=== PATIENT | female | born 1960 | race Caucasian/White ===

== ENCOUNTER 2018-10-04 11:12 | Inpatient (IN) | payer BC, SELFPAY ==
[2018-10-04] VITALS (14 sets, daily range): BP systolic 121–173; BP diastolic 63–106; PULSE 103–127; RESP 18–26; TEMP 36.4–37.3; O2SAT 91–98; BMI 24.7; BMI 24.2
--- NOTE | 2018-10-04 11:14 | EKG12_ITS ---
Test Reason : SOB Blood Pressure : / mmHG Vent. Rate : 122 BPM Atrial Rate : 122 BPM P-R Int : 142 ms QRS Dur : 082 ms QT Int : 318 ms P-R-T Axes : 091 085 090 degrees QTc Int : 453 ms Sinus tachycardia Biatrial enlargement Nonspecific ST abnormality Abnormal ECG Confirmed by CHARIS MEYER ([id number]), editorial director GAL ESPANA ([id number]) on 10/08/2018 4:52:00 PM Referred By: LAURIE Confirmed By:CHARIS MEYER
[2018-10-04] MEDS: Ipratropium/Albuterol Sulfate 3 ML AMPUL.NEB INHALATION ×3 (11:22→22:38)
[2018-10-04] MEDS: Albuterol 2.5 MG/3 ML VIAL.NEB. INHALATION ×4 (11:22→12:58)
[2018-10-04 11:48] LABS: Absolute Lymphocyte Count 0.65 X10^3/ul (0.83-4.51); Absolute Neutrophil Count 7.9 X10^3/uL (2.0-7.7); Basophil# 0.01 X10^3/uL; Basophil% 0.1 % (0-1); Eosinophil# 0.02 X10^3/uL; Eosinophils% 0.2 % (0-5); Hematocrit 49.6 % (37-47); Hemoglobin 15.9 g/dl (12.0-15.0); Lymphocyte # 0.65 X10^3/ul (4.0); Lymphocyte % 7.1 % (19-41); Mean Corp Hgb Conc 32.1 g/gl (32-36); Mean Corpuscular Hgb 28.5 pg (27.0-32.0); Mean Corpuscular Volume 88.9 fL (81-99); Mean Platelet Vol. 10.6 fl (6.2-12.0); Monocyte% 6.5 % (0-10); Neutrophil % 85.9 % (47-70); Platelet Count 176 K/mm3 (150-450); RBC Distribution Width CV 13.6 % (11.6-14.6); RBC Distribution Width SD 44.6 fl (35.1-43.9); Red Blood Count 5.58 M/mm3 (4.2-5.4); White Blood Count 9.2 K/mm3 (4.4-11.0)
[2018-10-04] MEDS: MethylPREDNISolone 125 MG/2 ML Vial IV (11:48)
[2018-10-04 11:49] LABS: POSITIVE COUNT NO; POSITIVE DIFFERENTIAL NO; POSITIVE MORPHOLOGY NO
--- NOTE | 2018-10-04 11:51 | ED.VISSUMM ---
- ER Visit Summary Date of Service: 10/04/18 Chief Complaint: Shortness of breath History of Present Illness: The patient is a 57 F presents to the emergency department cough and shortness of breath. The patient symptoms began 4 days ago. She states she started with an upper respiratory illness. She has a nasal drainage and facial fullness. Over the past 2 days, she had worsening dyspnea, cough, productive sputum. She does have a history of COPD. She has not on home oxygen. She she went to urgent care. There, her pulse ox was in the mid 80s. She was sent here for further evaluation. She did have a chest x-ray which is normal. She does not think she had fever. She denies any chest pain. Physical Examination: Vital signs reviewed General: Well-nourished, well-developed Head: Normocephalic, atraumatic Eyes: Pupils equal and reactive, extraocular muscles intact Neck, supple, no lymphadenopathy Heart: Regular rate and rhythm Respiratory: No distress, diminished air movement with end expiratory wheeze Abdomen: Soft, nontender, nondistended, no peritoneal signs Back: Nontender Extremities: Nontender, no edema, no cords Skin: Normal color no rash Neuro: Alert and oriented, no focal or lateralizing deficits Test Results: [] Emergency Department Course and Treatment: The patient presents with cough, shortness of breath, and was hypoxic on arrival. She did have increased work of breathing and very diminished air movement. IV was established. Patient was given Solu-Medrol and IV fluids. She was started on nebulized breathing treatments. With 3 treatments, she did have some improvement in aeration but did have persistent bronchospasm and oxygen requirement. I did review her chest x-ray which was unremarkable. Her labs are unremarkable. EKG demonstrates sinus tachycardia without acute ischemic change. Patient was given 2 more nebulized breathing treatments. She was very adamant that she wanted to go home. We try to ambulate the patient, but by the end of her ambulation on room air she had saturations in the low 80s and high 70s. I did basically bag the patient to stay in the hospital and she was agreeable. She is started on azithromycin. She is discussed with the hospitalist will be admitted for her persistent bronchospasm and oxygen requirement. Treatment Plan: [] Disposition: Admission Impression: 1. COPD exacerbation with hypoxia This note was generated with Dragon dictation software. It may contain incorrect words, spelling, and punctuation that were not noted in review of the chart prior to signing ED Disposition - Plan for ED Patient: Referrals: Catie Tyler,Isabel Rae [Primary Care Provider] -
[2018-10-04 12:06] LABS: Anion Gap 6 (5-15); BUN 11 mg/dL (7-18); Calcium,Total 8.8 mg/dL (8.5-10.1); Chloride 100 mmol/L (98-107); Creatinine, Serum 0.65 mg/dL (0.55-1.02); EST Glomerular Filtration Rate 99 mL/min (>60); Est Glom Filt Rate - Afr Amer 120 mL/min (>60); Estimated Creatinine Clearance 90.62 ml/min; Glucose 136 mg/dL (74-106); Potassium 4.2 mmol/L (3.5-5.1); Sodium Level 134 mmol/L (136-145)
--- NOTE | 2018-10-04 13:42 | HP.PCM_ITS ---
Problem List (1) COPD exacerbation Status: Acute (2) Cigarette smoker Status: Chronic (3) Hypertension Status: Chronic History of Present Illness Date of Admission: 10/04/18 Chief Complaint: Shortness of breath for 3-4 days The patient is a 57 year old F with history of COPD and chronic smoker 1/2 pack to 2 packs of cigarettes since teenage was sent to ER from [facility] urgent care for progressive worsening of shortness of breath, cough and other URI symptoms. Patient started having sinus congestion, nasal drainage, sore throat and postnasal drip about 4 days ago. She also had cough which is worse than baseline COPD cough. Mild chest congestion bilaterally. Shortness of breath getting worse so that she feels dyspneic on laying flat along with wheezing. In ED, patient is tachycardic, tachypneic and hypoxic. Her pulse ox was mid 80s on room air. She is not on home oxygen Chest x-ray shows flattening of hemidiaphragms and hyperexpansion suggestive of COPD. Past Medical History Past Medical History (Chronic Problems): Chronic Problems Cigarette smoker (Chronic) Hypertension (Chronic) Allergies codeine Allergy (Verified 10/04/18 11:18) Rash ibuprofen Allergy (Verified 10/04/18 11:18) Rash Home Medications: Ambulatory Orders Medication Instructions Recorded Acetaminophen [Tylenol Extra 1,000 mg PO Q4H PRN PRN 10/04/18 Strength] Albuterol Sulfate [Ventolin Hfa] 1 - 2 puff PO PRN PRN 10/04/18 Fluticasone/Salmeterol [Advair 1 puff INHALATION DAILY 10/04/18 250-50 Diskus] Lisinopril [Zestril] 10 mg PO DAILY 10/04/18 Loratadine [Claritin] 10 mg PO DAILY 10/04/18 Tiotropium [place] [Spiriva 1 puff INHALATION DAILY 10/04/18 Respimat] Smoking Status: Current every day smoker - *Family History Paternal History Items: COPD Review of Systems Constitutional: Reports: Chills. Denies: Fever, Weight Change HEENT: Reports: Ear Pain, Nasal Congestion, Post Nasal Drip, Sinus Congestion, Sinus Drainage, Sore Throat. Denies: Head Aches Cardiovascular: Reports: Chest Tightness. Denies: Chest Pain, Palpitations Respiratory: Reports: Cough, Shortness of breath at rest, Shortness of breath upon exertion, Sputum production, Wheezing Gastrointestinal: Denies: Abdominal Pain, Nausea, Vomiting Genitourinary: Denies: Dysuria Musculoskeletal: Denies: Joint Pain, Joint Tenderness Skin: Denies: Rash, Wounds Neurological: Denies: Numbness, Tingling, Focal weakness Psychiatric: Denies: Anxiety, Depression, Homicidal Ideations, Suicidal Ideations Hematologic/ Lymphatic: Denies: Easy Bruising, Easy Bleeding VTE Information - Inpt Only VTE Present on Admission: No VTE Mechan Device Prophylaxis: None VTE Pharm Prophylaxis ordered?: Yes Patient Problems: Active and Suspected Problems COPD exacerbation (Acute) - Physical Exam General: Alert, Oriented x3, Cooperative HEENT: Atraumatic, PERRLA, EOMI, Normocephalic Oral: No Gingival or Mucosal Lesions/ Ulcerations Neck: Supple, No JVD, Negative Carotid Bruits Lungs: Diminished - Air entry severely diminished bilaterally, Rhonchi, Short of Breath, Tachypneic, Using Accessory Muscles, Wheezes, - - Hypoxic, pulse ox 96% on 4 L of oxygen Cardiovascular: Regular Rhythm, Normal S1, Normal S2, No murmurs, Tachycardic Abdomen: Bowel Sounds Present, Soft, Non Tender, Non-Distended Extremities: No edema, Capillary Refill Less than 3 Seconds Skin: No rashes, No breakdown Musculoskeletal: No Tenderness to Palpation of Joints or Extremities, Muscle Wasting Lymphatic: No Cervical, Supraclavicular, or Inguinal Adenopathy Neurological: Cranial nerves II-XII grossly intact, Deep Tendon Reflexes 2+/4 and Symmetrical, Neuro grossly intact, Motor Exam 5/5 strength throughout Psych/Mental Status: Normal Affect, Appropriate Vital Signs Temp Pulse Resp BP Pulse Ox 97.7 F L 127 H 22 H 173/93 H 93 10/04/18 12:33 10/04/18 13:30 10/04/18 13:30 10/04/18 13:30 10/04/18 13:30 Oxygen Flow Rate (L/min) 3 Oxygen Delivery Method Nasal Cannula Weight: 157 lb 13.616 oz Body Mass Index (BMI) 24.7 Microbiology Past 72 Hours 10/04/18 11:20 Influenza Types A,B Direct FA (CAROLYNE) - Final Mucosa - Nose Laboratory Tests Past 24 Hrs 10/04/18 10/04/18 11:35 11:35 WBC 9.2 RBC 5.58 H Hgb 15.9 H Hct 49.6 H MCV 88.9 MCH 28.5 MCHC 32.1 RDW 13.6 RDW Differential 44.6 H Plt Count 176 MPV 10.6 Immature Gran % (Auto) 0.200 Neut % (Auto) 85.9 H Lymph % (Auto) 7.1 L Rooks % (Auto) 6.5 Eos % (Auto) 0.2 Baso % (Auto) 0.1 Absolute Neuts (auto) 7.9 H Absolute Lymphs (auto) 0.65 L Total Counted Not Reportable Sodium 134 L Potassium 4.2 Chloride 100 Carbon Dioxide 28.0 Anion Gap 6 BUN 11 Creatinine 0.65 Estim Creat Clear Calc 90.62 Est GFR (MDRD) Af Amer 120 Est GFR (MDRD) Non-Af 99 BUN/Creatinine Ratio 17.0 Glucose 136 H Calcium 8.8 Troponin I < 0.015 Assessment/Plan All Active Problems COPD exacerbation (Acute) The patient is a 57 year old F with history of COPD and chronic smoker 1/2 pack to 2 packs of cigarettes since teenage was sent to ER from [facility] urgent care for progressive worsening of shortness of breath, cough and other URI symptoms. Patient started having sinus congestion, nasal drainage, sore throat and postnasal drip about 4 days ago. She also had cough which is worse than baseline COPD cough. Mild chest congestion bilaterally. Shortness of breath getting worse so that she feels dyspneic on laying flat along with w heezing. In ED, patient is tachycardic, tachypneic and hypoxic. Her pulse ox was mid 80s on room air. She is not on home oxygen Chest x-ray shows flattening of hemidiaphragms and hyperexpansion suggestive of COPD. EKG shows sinus tachycardia at 122 bpm with biatrial enlargement. 1. Acute hypoxic respiratory failure secondary to COPD exacerbation may be precipitated from viral bronchitis: Patient is being admitted on MedSurg floor. Oxygen therapy to keep pulse ox 90-92%. Started on bronchodilator, IV Solu- Medrol, chest physiotherapy, Mucinex and incentive spirometry. Tessalon Perles for symptomatic relief of cough. IV Zithromax. Chest x-ray does not show features of pneumonia. ABG ordered 2. Hypertension: Blood pressure is elevated. She is on lisinopril 10 mg daily. Increase to 20 mg daily and titrate as per the blood pressure. Hydralazine 10 mg IV every 4 hours as needed for systolic blood pressure more than 180 mmHg. 3. URI: On Claritin. Respiratory panel ordered 4. Chronic smoker with nicotine dependence: On nicotine patch. 5. DVT prophylaxis, moderate risk: On Lovenox 40 minutes subcu daily. Code Visit Inpatient E&M: 99560 Init Hosp L3
--- NOTE | 2018-10-04 15:10 | CASEMGMT ---
RN CM Assessment Introduced role of RN CM to patient and family at bedside. Patient is alert, oriented and able to participate in RN CM Assessment. Care providers, pharmacy, and demographics verified. Presentation: CC: Sinus Congestion since Monday, SOB. O2 sat 70's on arrival. Patient sent from F , Drove Self. States +smoker, h/o COPD, +Ill contact with some of her coworkers. PCP: Isabel Lr NP Specialists: None Preferred Pharmacy: [facility] Insurance: [place] Prescription Benefit: Yes LNOK: Boyfriend Vin Curtis Living Arrangements: Lives with Boyfriend in a Mobile Home, 3 steps to enter. Independent with ambulation and ADL's. Transportation: Patient drives, drove self- plans to drive on DC DME: Nebulizer, Preference In Network HHC: None in the past, preference In Network SNF: None in the past, Preference In Network DC PLAN: Home with possible Home O2. Goal: Home Issues: May need to establish a Social Media Analyst for h/o COPD and monitor Lung Function Testing, May need to establish PCP tp get referral for such. FRANCES Hua
[2018-10-04] MEDS: 0.9% Normal Saline 1,000 ML 100 ML IV (16:30)
[2018-10-04] MEDS: guaiFENesin 1,200 MG Tablet 1200 MG PO (18:08)
[2018-10-04] MEDS: Lisinopril 10 MG Tablet PO (18:41)
[2018-10-05] VITALS (14 sets, daily range): BP systolic 133–158; BP diastolic 77–93; PULSE 94–109; RESP 18–21; TEMP 36.4–36.9; O2SAT 73–96
[2018-10-05] MEDS: Ipratropium/Albuterol Sulfate 3 ML AMPUL.NEB INHALATION ×3 (03:05→15:43)
[2018-10-05] MEDS: 0.9% NaCl Peripheral Flush Adult/Peds IV ×2 (05:58→09:19)
[2018-10-05] MEDS: guaiFENesin 1,200 MG Tablet 1200 MG PO (09:19)
[2018-10-05] MEDS: Loratadine 10 MG Tablet PO (09:19)
[2018-10-05] MEDS: Lisinopril 10 MG Tablet PO (09:19)
--- NOTE | 2018-10-05 12:14 | NURSING ---
AT 1207 This nurse walked pt in ruiz. See oxygen qualification intervention. Pt was only 75% on 3L NC while walking. This nurse increased oxygen to 4L NC and spo2 was then 86%. sp02 87-88% on 6L. Pt spo2 at 90% on 8L. This nurse paged Dr. Valerio to inform.
--- NOTE | 2018-10-05 13:33 | NURSING ---
Oxygen home qualification done for the 2nd time today. Pt thought this nurse did not do it right the first time. This nurse brought in a new oxygen tank that said full on it and showed pt. Turned it on without oxygen tubing to 1L and let pt hear the noise of the oxygen. Turned it off and walked pt in the ruiz. spo2 down to 73% only walking a few feet. This nurse turned o2 tank on without hooking oxygen tubing to it. [place] the noise of the oxygen. Turned up to 3L and was still able to hear the noise and felt the oxygen coming out. Pt was able to as well. This nurse then hooked pt to oxygen tank and increased to 4L NC. only got up to 85-86% on 4L. Increased to 6L because there is no 5L on the oxygen tanks. pt was maintained 89-90% on 6L NC. pt is adamant about going home. this nurse asked her what will happen if she goes home and has to come back. well then I will come back then, no big deal, I just want to go home.
--- NOTE | 2018-10-05 15:32 | CASEMGMT ---
LION MALAVE updated that patient qualifies for home oxygen. List of providers for DME reviewed with patient and agreeable to [facility]. Script received from hospitalist and referral sent to [facility]. LION MALAVE arranged for portable oxygen be delivered to hospital prior to patient's discharge
--- NOTE | 2018-10-05 16:11 | DCINST_ITS ---
- Discharge Diagnoses Current Active Problems: Current Active and Chronic Problems COPD exacerbation (Acute) Cigarette smoker (Chronic) Hypertension (Chronic) You will use the following diet at home:: No restrictions Your food should be the consistency of: Regular Your liquids should be the consistency of: Regular/Thin Discharge Activity: Return to Normal Activity Weight Bearing Status: Full weight bearing Additional Instructions: NO SMOKING=USE NICODERM PATCH Allergies/Adverse Reactions: Allergies codeine Allergy (Verified 10/04/18 11:18) Rash ibuprofen Allergy (Verified 10/04/18 11:18) Rash Medications to take at Discharge Acetaminophen [Tylenol] 1,000 mg PO Q4H PRN PRN 10/04/18 Albuterol Sulfate [Ventolin Hfa] 1 - 2 puff PO PRN PRN 10/04/18 Fluticasone/Salmeterol [Advair 250-50 Diskus] 1 puff INHALATION DAILY 10/04/18 Lisinopril [Zestril] 10 mg PO DAILY 10/04/18 Tiotropium [place] [Spiriva Respimat] 1 puff INHALATION DAILY 10/04/18 Albuterol Aerosols [Ventolin Aerosols] 2.5 mg INHALATION Q6HWA.RT #120 vial.neb. 10/05/18 Azithromycin [Zithromax] 500 mg PO DAILY #1 tab 10/05/18 Nicotine [Nicoderm Cq] 21 mg TRANSDERM. DAILY patch 10/05/18 Prednisone 20 mg PO UD #15 tab 10/05/18 The following prescriptions were given: Albuterol Aerosols [Ventolin Aerosols] 2.5 mg INHALATION Q6HWA.RT #120 vial.neb. Azithromycin [Zithromax] 500 mg PO DAILY #1 tab Prednisone 20 mg PO UD #15 tab Primary Care Physician: Isabel West [Primary Care Provider] - Please follow up with your Primary Care Physician in: IN ONE WEEK Test Results: Test results from this visit will be discussed in further detail at your follow- up appointment, if applicable. Please Follow Up With: Scottie Enamorado MD When: Monday
--- NOTE | 2018-10-05 16:17 | NURSING ---
Care assumed at this time from Malinda Vasques RN.
[2018-10-05] MEDS: predniSONE 20 MG Tablet 40 MG PO (17:32)
--- NOTE | 2018-10-07 16:45 | DS.PCM_ITS ---
Discharge Date and Diagnosis Date of Admission: 10/04/18 Date of Discharge: 10/05/18 - Primary Discharge Diagnosis #1 acute exacerbation of COPD #2 acute hypoxia secondary to #1 #3 essential hypertension - Secondary Discharge Diagnosis Chronic Problems Cigarette smoker (Chronic) Hypertension (Chronic) Hospital Course and Treatment Operations: None Procedures: None Summary of Care Provided: The patient is a 57 year old F seen in the emergency room with a chief complaint of shortness of breath and nonproductive cough. Patient had a known history of COPD. Patient was noted to be hypoxic in the emergency room, she was given several aerosol treatments but had persistent wheezing, chest x-ray was obtained which was unremarkable. Patient wanted to be discharged home but due to her hypoxia, she finally relented and agreed to stay in the hospital. Patient was admitted to [place] [address], given aerosol treatments, IV steroids, and respiratory panel was obtained which was negative for pathogens. Attempts were made to wean the patient from oxygen, patient however needed oxygen on ambulation. However, patient refused to stay in the hospital and requested a discharge home with medication and oxygen. Patient was aware that she might have to come back to the hospital for further treatment if she worsened. Patient's pulse ox on ambulation with room air was 73%, ambulation with 4 L of oxygen was 90%, pulse ox at rest on room air was 91. Patient was prescribed home O2 and was felt to be capable of using it during ambulation. On 10/05/18, patient was seen and examined and felt to be in stable condition for discharge home: On examination she appeared in good health and spirits. Vital signs as documented. Skin warm and dry and without overt rashes. Neck without JVD. Lungs-expiratory wheezes are scattered over both lung. Heart exam notable for regular rhythm, normal sounds and absence of murmurs, rubs or gallops. Abdomen unremarkable and without evidence of organomegaly, masses, or abdominal aortic enlargement. Extremities nonedematous. Neuro: Cranial nerves II through XII are grossly intact, no focal motor deficits were noted, sensation to light touch and pinprick is intact. Psych: Patient is alert and oriented x3, she does not appear anxious or depressed - Physical Exam Vital Signs Temp Pulse Resp BP Pulse Ox 97.8 F 108 H 20 H 150/86 H 95 10/05/18 16:10 10/05/18 16:10 10/05/18 16:10 10/05/18 16:10 10/05/18 16:10 Oxygen Flow Rate (L/min) [ 6 AMBULATION with Oxygen] Oxygen Flow Rate (L/min) 2 Oxygen Delivery Method Nasal Cannula Weight: 70.171 kg Body Mass Index (BMI) 24.2 Intake and Output for Last 24 Hours 10/05/18 10/06/18 10/07/18 23:59 23:59 23:59 Intake Total 2847 / 2847 Balance 2847 / 2847 Microbiology Past 72 Hours 10/04/18 17:20 Respiratory Panel (PCR) - Final Mucosa - Nasopharyngeal Discharge Activity: Return to Normal Activity Weight Bearing Status: Full weight bearing Home Medications: Medications to take at Discharge Acetaminophen [Tylenol] 1,000 mg PO Q4H PRN PRN 10/04/18 Albuterol Sulfate [Ventolin Hfa] 1 - 2 puff PO PRN PRN 10/04/18 Fluticasone/Salmeterol [Advair 250-50 Diskus] 1 puff INHALATION DAILY 10/04/18 Lisinopril [Zestril] 10 mg PO DAILY 10/04/18 Tiotropium [place] [Spiriva Respimat] 1 puff INHALATION DAILY 10/04/18 Albuterol Aerosols [Ventolin Aerosols] 2.5 mg INHALATION Q6HWA.RT #120 vial.neb. 10/05/18 Azithromycin [Zithromax] 500 mg PO DAILY #1 tab 10/05/18 Nicotine [Nicoderm Cq] 21 mg TRANSDERM. DAILY patch 10/05/18 Prednisone 20 mg PO UD #15 tab 10/05/18 Following Prescrptions Were Given to Patient: Albuterol Aerosols [Ventolin Aerosols] 2.5 mg INHALATION Q6HWA.RT #120 vial.neb. Azithromycin [Zithromax] 500 mg PO DAILY #1 tab Prednisone 20 mg PO UD #15 tab Primary Care Physician: Isabel West [Primary Care Provider] - Please follow up with your Primary Care Physician in: IN ONE WEEK Please Follow Up With: Scottie Enamorado MD When: Monday Disposition: Home Minutes spent on discharge:: 32 Patient Condition:: Stable Medical Necessity - Tobacco Use Smoking Status: Current every day smoker Tobacco Use: Cigarettes Meaningful Use Info Meaningful Use Diagnoses (Choose all that apply): None applicable Code Visit Inpatient E&M: 07290 Disch Hosp
--- NOTE | 2018-10-08 16:11 | CASEMGMT ---
LION MALAVE Discharge Follow-up Phone Call: MADHURIKeely: Mazin Strata: 3 Call Date: 10/08/18 Discharge Date: 10/05/18 Time of Call: 1610 Duration: 3 Admitting Diagnosis: COPD Exacerbation LION MALAVE completed follow-up phone call after recent hospitalization. Patient states she is doing better, still wearing oxygen. Encouraged patient to buy a pulse oximeter. Patient has appt with PCP on 10/16 and pulmonology 10/31. Patient was able to fill prescriptions without any issues. Patient denies question regarding discharge instructions.
== END 2018-10-05 17:50 | disposition home or self-care (01) | DRG 189 ==
LOC: ED 11:53 → MS3 16:34
PROVIDERS: Admitting Provider Internal Medicine; Emergency Provider Emergency Medicine; Visit Provider Internal Medicine
DX: J96.01 Acute respiratory failure with hypoxia (principal); J44.1 Chronic obstructive pulmonary disease with (acute) exacerbation; F17.210 Nicotine dependence, cigarettes, uncomplicated; I10 Essential (primary) hypertension
CPT/HCPCS: 80048; 84484; 85025; 87633; 87804; 93005; 94640; 94667; 99283; 99406; J7030; J7040; A4216

== ENCOUNTER → 2019-04-30 06:51 | Outpatient (CLI) | payer BC, SELFPAY ==
[2018-10-05 09:32] VITALS: BMI 24.7
--- NOTE | 2019-04-30 06:55 | BI_ITS ---
BILATERAL DIGITAL MAMMOGRAM WITH TOMOSYNTHESIS: Mediolateraloblique and craniocaudal views demonstrate no evidence of dominant parenchymal masses. No cluster of microcalcifications or architectural distortion is seen. No evidence of skin thickening is identified There has been no significant change since 07/30/2016. Breast Density: The breast tissue is heterogeneously dense, which may obscure small masses. CAD was used to assist in final assessment. IMPRESSION: NORMAL MAMMOGRAM BILATERALLY. FINAL ASSESSMENT: BIRAD 1 (NEGATIVE) YEARLY MAMMOGRAM RECOMMENDED Approximately 10% of breast cancers are not detected by mammography. A normal mammogram should not delay biopsy of a clinically suspicious abnormality. Electronically Signed: Amanuel Chaney, at 19:52 EDT Tel , Service support , BI/SCREEN MAMM (CAD) W/JESUS MARSHALL
== END ==
DX: Z12.31 Encounter for screening mammogram for malignant neoplasm of breast (principal)
CPT/HCPCS: 77063; 77067

== ENCOUNTER 2019-06-17 17:29 | Inpatient (IN) | payer BC, SELFPAY ==
[2018-10-05 09:32] VITALS: BMI 24.7
[2019-06-17] VITALS (10 sets, daily range): BP systolic 131–169; BP diastolic 80–92; PULSE 109–123; RESP 20–30; TEMP 36.5–36.7; O2SAT 86–97; BMI 24.3; BMI 24.4; BMI 23.0
--- NOTE | 2019-06-17 17:53 | EKG12_ITS ---
Test Reason : Blood Pressure : / mmHG Vent. Rate : 112 BPM Atrial Rate : 112 BPM P-R Int : 150 ms QRS Dur : 098 ms QT Int : 356 ms P-R-T Axes : 090 080 103 degrees QTc Int : 485 ms Sinus tachycardia with Premature atrial complexes Right atrial enlargement Nonspecific T wave abnormality Abnormal ECG Confirmed by RADHA BERRY, WESLEY ([id number]), scientific editor NEVAEH LIMON ([id number]) on 06/19/2019 11:15:11 AM Referred By: Nataliya Trimble Confirmed By:WESLEY GARCIA MD
--- NOTE | 2019-06-17 17:55 | ED.DCSUM_ITS ---
- ER Visit Summary Date of Service: 06/17/19 Chief Complaint: Shortness of breath History of Present Illness: The patient is a 58 F who has been short of breath for several days. She saw her doctor 4 days ago and was started on prednisone, but her symptoms are not improving. She has a history of COPD. She is not on home oxygen. She felt worse today, so she went to her doctor and was referred to the ED. She reports a cough with clear sputum. It has not changed. She reports hot flashes, but denies fevers. Denies chest pain. Physical Examination: Tachycardic and hypoxic, 86% on room air. Tripoding. Diminished lung sounds in all bass. Heart tachycardic but regular. Skin unremarkable. Calves soft and supple. Test Results: EKG, chest x-ray, labs pending. Emergency Department Course and Treatment: Patient was placed on supplemental oxygen. She had normal oxygen levels at 3 L. She remained tachycardic. She was treated with breathing treatments and IV steroids. We will check x-rays and labs. She will likely need admission. On reevaluation, patient was feeling better. Her EKG showed nonspecific ST and T wave changes. No sign of acute ischemia or infarction. White count 11.6, hemoglobin 16.7, sodium 128, glucose 170, troponin 0 0.558. Chest x-ray showed COPD changes. Patient continued to refuse BiPAP. Her enzymes were elevated. She was treated with aspirin. She continued to deny chest pain. Patient will be admitted for inpatient care. Treatment Plan: As above Disposition: Admit to PCU Impression: 1. COPD exacerbation 2. Elevated troponin 3. Hyponatremia This note was generated with [employer] dictation software. It may contain incorrect words, spelling, and punctuation that were not noted in review of the chart prior to signing ED Disposition - Plan for ED Patient: Referrals: Isabel West [Primary Care Provider] -
--- NOTE | 2019-06-17 18:00 | RAD_ITS ---
STUDY: X-RAY CHEST REASON FOR EXAM: Female, 58 years old. Chest pain TECHNIQUE: Single AP portable view of the chest. COMPARISON: December 12, 2016 FINDINGS: There is hyperinflation of the lungs consistent with chronic obstructive lung disease (COPD). Lungs are clear. There is no demonstrated pleural abnormality. Normal size heart. Normal mediastinum and celsa. Normal visualized pulmonary arteries. Normal visualized aortic arch and descending thoracic aorta. Normal visualized thoracic spine. Normal visualized ribs, clavicles, and shoulders. There is no demonstrated abnormality of the visualized soft tissue structures of the upper abdomen. RAD/Chest 1 View (Portable) IMPRESSION: COPD without acute findings. Electronically Signed: Bobo Padilla DO at 18:20 EST Tel , Service support ,
[2019-06-17] MEDS: Ipratropium/Albuterol Sulfate 3 ML AMPUL.NEB INHALATION ×2 (18:07→23:52)
[2019-06-17] MEDS: Albuterol 2.5 MG/3 ML VIAL.NEB. INHALATION (18:07)
[2019-06-17 18:14] LABS: Absolute Lymphocyte Count 0.83 X10^3/uL (0.83-4.51); Absolute Neutrophil Count 9.9 X10^3/uL (2.0-7.7); Basophil# 0.02 X10^3/uL; Basophil% 0.2 % (0-1); Hematocrit 51.2 % (37-47); Hemoglobin 16.7 g/dL (12.0-15.0); Lymphocyte # 0.83 X10^3/ul (4.0); Lymphocyte % 7.2 % (19-41); Mean Corp Hgb Conc 32.6 g/dL (32-36); Mean Corpuscular Hgb 28.3 pg (27.0-32.0); Mean Corpuscular Volume 86.6 fL (81-99); Mean Platelet Vol. 10.5 fl (6.2-12.0); Monocyte# 0.73 X10^3/uL; Monocyte% 6.3 % (0-10); NRBC Flagged by Analyzer 0 % (0-5); Neutrophil # 9.92 X10^3/uL (2.7-7.7); Neutrophil % 85.8 % (47-70); Platelet Count 297 K/mm3 (150-450); RBC Distribution Width CV 12.5 % (11.6-14.6); RBC Distribution Width SD 39.9 fl (35.1-43.9); Red Blood Count 5.91 M/mm3 (4.2-5.4); White Blood Count 11.6 K/mm3 (4.4-11.0)
[2019-06-17 18:20] LABS: Anion Gap 8 (5-15); BUN 17 mg/dL (7-18); BUN/Creat Ratio 27.1 RATIO (10-20); Calcium,Total 9.2 mg/dL (8.5-10.1); Chloride 90 mmol/L (98-107); Creatinine, Serum 0.63 mg/dL (0.55-1.02); EST Glomerular Filtration Rate 103 mL/min (>60); Est Glom Filt Rate - Afr Amer 124 mL/min (>60); Estimated Creatinine Clearance 92.35 ml/min; Glucose 170 mg/dL (74-106); Potassium 4.5 mmol/L (3.5-5.1); Sodium Level 128 mmol/L (136-145)
[2019-06-17] MEDS: MethylPREDNISolone 125 MG/2 ML Vial IV (18:27)
--- NOTE | 2019-06-17 19:48 | PCM.HP.STD ---
Problem List (1) COPD exacerbation Status: Acute (2) Cigarette smoker Status: Chronic (3) Hypertension Status: Chronic (4) Stage 4 very severe COPD by GOLD classification Status: Chronic History of Present Illness Date of Admission: 06/17/19 Chief Complaint: SHORTNESS OF BREATH The patient is a 58 year old F with a significant history of stage IV COPD by gold classification; hypertension; and tobacco abuse who presents emergency department with 4-day history of progressively worsening shortness of breath. Outpatient patient was started on prednisone by PCP. On the day of presentation she went to PCPs office and her oxygen saturation was 65% on room air. At the emergency department patient was found to be tripoding. At the BiPAP was discussed with patient but patient declined. Past Medical History Past Medical History (Chronic Problems): Chronic Problems Cigarette smoker (Chronic) Hypertension (Chronic) Stage 4 very severe COPD by GOLD classification (Chronic) Allergies codeine Allergy (Verified 06/17/19 17:29) Rash ibuprofen Allergy (Verified 06/17/19 17:29) Rash Home Medications: Ambulatory Orders Medication Instructions Recorded Acetaminophen [Tylenol] 1,000 mg PO DAILY PRN PRN 10/04/18 Albuterol Sulfate [Ventolin Hfa] 1 - 2 puff PO PRN PRN 10/04/18 Lisinopril [Zestril] 10 mg PO DAILY 10/04/18 Tiotropium [place] [Spiriva 1 puff INHALATION DAILY 10/04/18 Respimat] Albuterol Aerosols [Ventolin 2.5 mg INHALATION Q6HWA.RT #120 10/05/18 Aerosols] vial.neb. Nicotine [Nicoderm Cq] 21 mg TRANSDERM. DAILY patch 10/05/18 Cholecalciferol (Vitamin D3) 50,000 unit PO DACOSTA 06/17/19 [D3-50] Prednisone 20 mg PO DAILY 06/17/19 Surgical History: - - Tubal ligation Lives: With Family Smoking Status: Current every day smoker Tobacco Use: Cigarettes - *Family History Paternal History Items: Cancer - His father had lung cancer, COPD Maternal History Items: Cancer - Breast Review of Systems Constitutional: Denies: Chills, Fever, Weight Change HEENT: Denies: Head Aches, Sinus Congestion, Sinus Drainage Cardiovascular: Denies: Chest Pain, Palpitations Respiratory: Reports: Cough, Shortness of Breath, Sputum production - Clear sputum; chronic, Wheezing Gastrointestinal: Denies: Abdominal Pain, Nausea, Vomiting Genitourinary: Denies: Dysuria Musculoskeletal: Denies: Joint Pain, Joint Tenderness Skin: Denies: Rash, Wounds Neurological: Denies: Numbness, Tingling, Focal weakness Psychiatric: Denies: Anxiety, Depression, Homicidal Ideations, Suicidal Ideations Hematologic/ Lymphatic: Denies: Easy Bruising, Easy Bleeding VTE Information - Inpt Only VTE Present on Admission: No VTE Mechan Device Prophylaxis: None VTE Pharm Prophylaxis ordered?: Yes - Physical Exam Vitals/I&O's: Vital Signs Temp Pulse Resp BP Pulse Ox 97.7 F L 119 H 30 H 155/85 H 94 06/17/19 17:30 06/17/19 18:29 06/17/19 18:29 06/17/19 18:29 06/17/19 18:29 Oxygen Flow Rate (L/min) 4 Oxygen Delivery Method Nasal Cannula Weight: 71.668 kg Body Mass Index (BMI) 24.3 General: Alert, Oriented x3, Cooperative HEENT: Atraumatic, PERRLA, EOMI, Normocephalic Neck: Supple, No JVD, Negative Carotid Bruits Lungs: Rhonchi, Tachypneic, Using Accessory Muscles, Wheezes, - - Conversational dyspnea and tripoding Cardiovascular: Normal S1, Normal S2, No murmurs, Tachycardic Abdomen: Bowel Sounds Present, Soft, Non Tender Extremities: No edema, Capillary Refill Less than 3 Seconds Skin: No rashes, No breakdown Musculoskeletal: No Tenderness to Palpation of Joints or Extremities Neurological: Cranial nerves II-XII grossly intact Psych/Mental Status: Normal Affect, Appropriate Laboratory Results 06/17/19 17:50: WBC 11.6 H, RBC 5.91 H, Hgb 16.7 H, Hct 51.2 H, MCV 86.6, MCH 28.3, MCHC 32.6, RDW Std Deviation 39.9, RDW Coeff of Sami 12.5, Plt Count 297, MPV 10.5, Immature Gran % (Auto) 0.500, Neut % (Auto) 85.8 H, Lymph % (Auto) 7.2 L, [place] % (Auto) 6.3, Eos % (Auto) 0.0, Baso % (Auto) 0.2, Absolute Neuts (auto) 9.9 H, Absolute Lymphs (auto) 0.83, Nucleated RBC % 0 06/17/19 17:50: Sodium 128 L, Potassium 4.5, Chloride 90 L, Carbon Dioxide 30.0, Anion Gap 8, BUN 17, Creatinine 0.63, Estim Creat Clear Calc 92.35, Est GFR (MDRD) Af Amer 124, Est GFR (MDRD) Non-Af 103, BUN/Creatinine Ratio 27.1 H, Glucose 170 H, Calcium 9.2, Troponin I 0.558 H Assessment/Plan All Active Problems COPD exacerbation (Acute) The patient is a 58 year old F with a significant history of stage IV COPD by gold classification; hypertension; tobacco abuse who presents emergency department with 4-day history of progressively worsening shortness of breath; significant hypoxia and found tripoding the emergency department. Acute COPD exacerbation CXR independently reviewed confirms COPD EKG independently reviewed confirms atrial enlargement which is unchanged from previous. No ST or T wave abnormalities. Scheduled DuoNeb Albuterol as needed Solu-Medrol. Azithromycin ordered. Continue oxygen supplementation. Monitor BMP and CBC Leukocytosis Likely due to steroid use outpatient. Trend. Elevated Troponin Trend Likely secondary to demand ischemia. Differential includes non-ST elevation [place]. Trend troponin. At the emergency department patient received full dose aspirin. Continue patient on baby aspirin. High intensity statin ordered. If troponin is persistently high consider cardiology consult/therapeutic anticoagulation. Tobacco abuse Continue home nicotine patch. Counseled. Continues Lovenox. Hypertension Patient blood pressure was not within goal. Lisinopril continued. Trend blood pressure and adjust blood pressure medications. DVT prophylaxis Subcutaneous Lovenox Code Visit Inpatient E&M: 10561 Init Hosp L3
[2019-06-17] MEDS: Aspirin 81 MG TAB.CHEW 324 MG PO (20:28)
[2019-06-17] MEDS: 0.9% Saline Lock 10 ML Syringe IV (22:51)
[2019-06-17 23:06] LABS: Bedside Glucose 176 mg/dL (70-110)
[2019-06-18] VITALS (28 sets, daily range): BP systolic 128–161; BP diastolic 66–98; PULSE 90–127; RESP 12–33; TEMP 36.4–37.3; O2SAT 88–99
[2019-06-18] MEDS: Ipratropium/Albuterol Sulfate 3 ML AMPUL.NEB INHALATION ×6 (03:40→22:31)
--- NOTE | 2019-06-18 03:49 | NURSING ---
RT attempting to place Bipap on pt. Pt. combative and refusing to wear. trying to convince her to put on mask but pt. still refuses. Dr. Ochoa notified and came to room to see pt. Blood gases ordered, pt. now willing to do breathing treatment.
--- NOTE | 2019-06-18 03:59 | PCM.RRT.BLA ---
Rapid Response Note - Blank Patient is to tripoding. PCO2 was more than 100. Discussed BiPAP. Patient refused. Discussed intubation. Patient refused. Change CODE STATUS to DO NOT INTUBATE. Patient is okay with chest compressions if needed.
--- NOTE | 2019-06-18 04:00 | PCM.PN.BLA ---
Progress Note Nurse reported patient's will allow BiPAP if Ativan is given. Will order Ativan 1 mg IV.
[2019-06-18 04:06] LABS: Allen Test POS; Base Excess 8 mmol/L (-2 to +2); Bicarbonate 34.2 mmol/L (22-26); Blood Gas Specimen Type ART; O2 Delivery Device Nasal Can; PO2 75 mmHG (75-100); SITE R Radial; SO2 93 % (95-99); Time Given 345; Total Carbon Dioxide 36 mmol/L; pCO2 69.2 mmHg (35-45)
--- NOTE | 2019-06-18 04:29 | NURSING ---
Pt. refusing Ativan, holding bipap mask on her face. RT at bedside. Pt. states she will hold mask and not keep it strapped on her head because it scares her and she will hold it so I can control it. Pt. more alert at this time. Bipap at 21 %, [id number], with 2L Oxygen per NC. Will monitor pt. closely.
--- NOTE | 2019-06-18 04:58 | CPS ---
pt is just holding mask to face, refuses to let us give her ativan and will NOT strap on the head gear for bipap. Pt insists on holding it, also has 2L nasal o2 under room air bipap. RN aware.
[2019-06-18 05:11] LABS: Absolute Lymphocyte Count 0.61 X10^3/uL (0.83-4.51); Absolute Neutrophil Count 8.7 X10^3/uL (2.0-7.7); Basophil# 0.01 X10^3/uL; Basophil% 0.1 % (0-1); Hematocrit 49.3 % (37-47); Hemoglobin 16.1 g/dL (12.0-15.0); Lymphocyte # 0.61 X10^3/ul (4.0); Lymphocyte % 6.1 % (19-41); Mean Corp Hgb Conc 32.7 g/dL (32-36); Mean Corpuscular Hgb 28.5 pg (27.0-32.0); Mean Corpuscular Volume 87.3 fL (81-99); Mean Platelet Vol. 10.5 fl (6.2-12.0); Monocyte# 0.72 X10^3/uL; Monocyte% 7.2 % (0-10); NRBC Flagged by Analyzer 0 % (0-5); Neutrophil # 8.68 X10^3/uL (2.7-7.7); Neutrophil % 86.3 % (47-70); Platelet Count 245 K/mm3 (150-450); RBC Distribution Width CV 12.5 % (11.6-14.6); RBC Distribution Width SD 39.8 fl (35.1-43.9); Red Blood Count 5.65 M/mm3 (4.2-5.4); White Blood Count 10.1 K/mm3 (4.4-11.0)
[2019-06-18 05:27] LABS: Anion Gap 7 (5-15); BUN 20 mg/dL (7-18); BUN/Creat Ratio 28.8 RATIO (10-20); Calcium,Total 8.9 mg/dL (8.5-10.1); Chloride 90 mmol/L (98-107); Cholesterol 257 mg/dL (200); Creatinine, Serum 0.69 mg/dL (0.55-1.02); EST Glomerular Filtration Rate 92 mL/min (>60); Est Glom Filt Rate - Afr Amer 111 mL/min (>60); Estimated Creatinine Clearance 84.32 ml/min; Glucose 125 mg/dL (74-106); High Density Lipoprotein 78 mg/dL; Potassium 4.4 mmol/L (3.5-5.1); Sodium Level 128 mmol/L (136-145); Triglycerides 67 mg/dL; Very Low Density Lipoprotein 13 mg/dL (5-40)
[2019-06-18] MEDS: 0.9% Saline Lock 10 ML Syringe IV ×2 (05:32→21:23)
[2019-06-18 07:00] LABS: Bedside Glucose 132 mg/dL (70-110)
--- NOTE | 2019-06-18 08:18 | CPS ---
Pt sitting up in bed while holding Bipap mask to face. Pt refuses to allow Bipap mask to be strapped around head. Pt asked that the pressure be turned down if she is unable to come off. Pressure turned down to 8/4. Pt margarita bipap well with the decreased in pressure. The attempt was made to change face mask to nasal mask but pt refuses to keep nasal mask on and was given face mask back.
--- NOTE | 2019-06-18 08:27 | CPS ---
Pt is on 21% with Bipap machine but is wearing 2lpm nasal cannula with Bipap since she takes mask on and off frequently.
[2019-06-18] MEDS: Lisinopril 10 MG Tablet PO (08:51)
--- NOTE | 2019-06-18 11:40 | CPS ---
Pt margarita Bipap fairly well. Pt continues to hold mask and not allowing it to be strapped with head gear. Pt has 3 lpm with nasal cannula on under mask. Pt has been encouraged to keep mask on as long as possible. The pt was reinstructed on the importance of wearing the mask along with the benefits.
--- NOTE | 2019-06-18 11:45 | CASEMGMT ---
RN CM BARREL LEVELER CM to room to meet with patient for initial transition planning/care coordination assessment. RN CM introduced self and role at [facility]. Pt voices understanding and consents to assessment at this time. Pt sitting up in bed, holding BIPAP mask to her face and w/some SOB noted. Significant other, Vin, and 2 other family members present. RN CM offered to come back at a later time to complete assessment but pt stated for RN CM to stay to complete now and agreeable to visitors being present. Pt is A/O at this time and answers all questions appropriately. Care providers, pharmacy, and demographics verified/updated at this time. PCP: Isabel Rae [facility] Specialists: None. States she was supposed to follow-up with patient services clerk after last admission in September, but stated she either was not aware or forgot to, stating she does not remember what happened. would like to get established with Dr Enamorado to be seen as an out-pt. [place]co, Jessy, made aware. Preferred Pharmacy: [facility] Insurance: [employer] Prescription Benefit: Yes Living Will/HPOA: does not have LW or HCPOA. Provided material on AD and discussed briefly what this paperwork is. Pt is interested in talking w/SW to complete paperwork while @ [facility]. SW, Jaimee, made aware. LNOK: Son, Daughter Living Arrangements: Lives with her significant other, Vin Curtis. His son lives with them also. They live in a mobile home, 3 steps to enter. Independent w/ambulation and personal ADL's. States Banuelos has been doing most of the household tasks such as cleaning, laundry, and meals lately d/t her breathing difficulties. Transportation: Pt and Vin. Denies transportation concerns. DME: has the following DME: nebulizer only. Was discharged home on oxygen in September that she got through [employer], but pt states she is no longer on it @ home, stating her PCP took me off of it. is not sure if she would want to get oxygen through [employer] if she would need it @ discharge this admission. Given list of local DME companies for pt to review. Pt states no need for further DME at this time. HHC/SNF: No history of either. Denies wanting HHC @ discharge. Discussed CCN and pt agreeable to referral. Order entered and call placed to [facility]. Message left on Karla' VM @ [facility] re: referral. Pt wishes to return home and states has no concerns with going home at time of discharge. CM to follow for home oxygen needs and any further discharge planning/needs. Pt voices no further concerns/needs at this time. Advised pt to ask for CM if any further questions/concerns/needs arise. Voices understanding. PLAN: Home w/CCN Referral CM to follow for Home O2. PT/OT evals pending. Yesenia MILESN RN CM
[2019-06-18 11:50] LABS: Bedside Glucose 140 mg/dL (70-110)
--- NOTE | 2019-06-18 12:40 | CON.PCM_ITS ---
Problem List (1) COPD exacerbation Status: Acute (2) Cigarette smoker Status: Chronic (3) Hypertension Status: Chronic (4) Stage 4 very severe COPD by GOLD classification Status: Chronic Reason for Consult Date of Consultation: 06/18/19 Reason for Consultation: COPD exacerbation History of Present Illness: The patient is a 58 year old F, with past medical history listed below, who presented to [facility] on 06/17/2019 secondary to a 4-day history of progressive shortness of breath. Patient had seen her outpatient primary care provider 1 day prior to presentation to the ER and was placed on prednisone therapy for reported COPD exacerbation. Patient does not use home oxygen at baseline, but felt like she was progressive with a cough productive of clear sputum, hot flashes and tachypnea. Patient did not report any fevers or chest pain. On presentation to the ER, patient was noted to be 86% on room air. Patient was using accessory muscles. Patient was placed on 3 L nasal cannula oxygen with some improvement. Patient was also given breathing treatments and IV steroids. Chest x-ray was relatively unremarkable. On repeat evaluation, patient had somewhat improved, but did have lab work significant for hemoglobin of 16.7, sodium of 128 and slightly elevated troponin. Patient had refused BiPAP at that time, but was admitted to the PCU for further evaluation. On my evaluation, patient reportedly was improved clinically compared to previous. Patient had agreed to using BiPAP with manual manipulation. Patient states she could not tolerate strapping into her head. Patient stated that she was starting to feel a little bit better and is very anxious to be discharged before Thanksgiving. Patient denies any current chest pain, abdominal pain, nausea or vomiting. Patient does not see a foundry supervisor at baseline. Patient reportedly uses Spiriva at baseline with aerosols as needed. Patient does continue to smoke at baseline. Patient denies any toxic exposures. Review of systems otherwise negative from a constitutional, HEENT, respiratory, cardiovascular, GI, genitourinary, musculoskeletal, skin, neurologic, psychiatric and hematologic system unless stated above. Past Medical History Past Medical History (Chronic Problems): Chronic Problems Cigarette smoker (Chronic) Hypertension (Chronic) Stage 4 very severe COPD by GOLD classification (Chronic) Allergies codeine Allergy (Verified 06/17/19 17:29) Rash ibuprofen Allergy (Verified 06/17/19 17:29) Rash Home Medications: Ambulatory Orders Medication Instructions Recorded Acetaminophen [Tylenol] 1,000 mg PO DAILY PRN PRN 10/04/18 Albuterol Sulfate [Ventolin Hfa] 1 - 2 puff PO PRN PRN 10/04/18 Lisinopril [Zestril] 10 mg PO DAILY 10/04/18 Tiotropium [place] [Spiriva 1 puff INHALATION DAILY 10/04/18 Respimat] Albuterol Aerosols [Ventolin 2.5 mg INHALATION Q6HWA.RT #120 10/05/18 Aerosols] vial.neb. Nicotine [Nicoderm Cq] 21 mg TRANSDERM. DAILY patch 10/05/18 Cholecalciferol (Vitamin D3) 50,000 unit PO DACOSTA 06/17/19 [D3-50] Prednisone 20 mg PO DAILY 06/17/19 Surgical History: - - Tubal ligation Lives: With Family Smoking Status: Current every day smoker Tobacco Use: Cigarettes - *Family History Paternal History Items: Cancer - His father had lung cancer, COPD Maternal History Items: Cancer - Breast Review of Systems Comment: See HPI Objective: All imaging was personally reviewed. Agree with formal interpretation. 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 Patient has not had an echocardiogram. Multiple chest x-rays have been obtained, but patient has not had any screening low-dose CT scans. - Physical Exam Vitals/I&O's: Vital Signs Temp Pulse Resp BP Pulse Ox 36.6 C 117 H 17 149/98 H 92 06/18/19 11:11 06/18/19 11:11 06/18/19 11:11 06/18/19 11:11 06/18/19 11:11 Oxygen Flow Rate (L/min) 5 Oxygen Delivery Method Bi-pap Weight: 66.7 kg Body Mass Index (BMI) 23.0 Intake and Output for Last 24 Hours 06/16/19 06/17/19 06/18/19 23:59 23:59 23:59 Intake Total 150.25 / 150.25 305 / 305 Balance 150.25 / 150.25 305 / 305 General: Alert, Oriented x3, Cooperative, - - Mild to moderate distress with conversational dyspnea. Appears older than stated age. HEENT: Atraumatic, PERRLA, EOMI, Normocephalic, - - Glasses in place Oral: Moist Mucosa, No Gingival or Mucosal Lesions/ Ulcerations Neck: Supple, No JVD, No Nodes, Trachea Midline Lungs: No rhonchi, No rales, Diminished, Wheezes, - - Significant kyphosis noted Cardiovascular: Regular rate, Regular Rhythm, Normal S1, Normal S2, No murmurs, No rub noted, No Gallop Abdomen: Bowel Sounds Present, Soft, Non Tender, Non-Distended Extremities: No cyanosis, No edema, Capillary Refill Less than 3 Seconds, Clubbing Skin: No rashes, No breakdown Musculoskeletal: No Tenderness to Palpation of Joints or Extremities Lymphatic: No Cervical, Supraclavicular, or Inguinal Adenopathy Neurological: Cranial nerves II-XII grossly intact, Neuro grossly intact, Motor Exam 5/5 strength throughout Psych/Mental Status: Anxious Laboratory Results 06/17/19 17:50: WBC 11.6 H, RBC 5.91 H, Hgb 16.7 H, Hct 51.2 H, MCV 86.6, MCH 28.3, MCHC 32.6, RDW Std Deviation 39.9, RDW Coeff of Sami 12.5, Plt Count 297, MPV 10.5, Immature Gran % (Auto) 0.500, Neut % (Auto) 85.8 H, Lymph % (Auto) 7.2 L, [place] % (Auto) 6.3, Eos % (Auto) 0.0, Baso % (Auto) 0.2, Absolute Neuts (auto) 9.9 H, Absolute Lymphs (auto) 0.83, Nucleated RBC % 0 06/17/19 17:50: Sodium 128 L, Potassium 4.5, Chloride 90 L, Carbon Dioxide 30.0, Anion Gap 8, BUN 17, Creatinine 0.63, Estim Creat Clear Calc 92.35, Est GFR (MDRD) Af Amer 124, Est GFR (MDRD) Non-Af 103, BUN/Creatinine Ratio 27.1 H, Glucose 170 H, Calcium 9.2, Troponin I 0.558 H 06/17/19 21:31: Troponin I 0.527 H 06/17/19 23:00: POC Glucose 176 H 06/18/19 00:22: Troponin I 0.419 H 06/18/19 03:58: Specimen Type ART, Sample Site R Radial, pH 7.30 L, Bicarbonate Actual 34.2 H, POC Total CO2 36, Base Excess 8 H, O2 Saturation 93 L, ABG pCO2 69.2 H*, ABG pO2 75, Arnoldo Test POS, O2 Delivery Device Nasal Can, Liter Flow 3.0, Blood Gas Notified Whom IMAN BERRY, Blood Gas Notified Time 345 06/18/19 05:05: WBC 10.1, RBC 5.65 H, Hgb 16.1 H, Hct 49.3 H, MCV 87.3, MCH 28.5, MCHC 32.7, RDW Std Deviation 39.8, RDW Coeff of Sami 12.5, Plt Count 245, MPV 10.5, Immature Gran % (Auto) 0.300, Neut % (Auto) 86.3 H, Lymph % (Auto) 6.1 L, [place] % (Auto) 7.2, Eos % (Auto) 0.0, Baso % (Auto) 0.1, Absolute Neuts (auto) 8.7 H, Absolute Lymphs (auto) 0.61 L, Nucleated RBC % 0 06/18/19 05:05: Sodium 128 L, Potassium 4.4, Chloride 90 L, Carbon Dioxide 31.0, Anion Gap 7, BUN 20 H, Creatinine 0.69, Estim Creat Clear Calc 84.32, Est GFR (MDRD) Af Amer 111, Est GFR (MDRD) Non-Af 92, BUN/Creatinine Ratio 28.8 H, Glucose 125 H, Calcium 8.9, Triglycerides 67, Cholesterol 257 H, LDL Cholesterol 166 H, VLDL Cholesterol 13, HDL Cholesterol 78 06/18/19 06:42: POC Glucose 132 H 06/18/19 11:40: POC Glucose 140 H Clinical Impression(s) from Imaging Studies Chest X-Ray 06/17/19 18:00 IMPRESSION: COPD without acute findings. Electronically Signed: Bobo Padilla DO at 18:20 EST Tel , Service support , Current Medications Acetaminophen (Tylenol) 650 mg PO Q6H PRN PRN PRN Reason: Pain Score 1-3/Temp > 100.7 F Albuterol Sulfate (Ventolin Aerosols) 2.5 mg INHALATION Q2H PRN PRN PRN Reason: SOB/Wheezing Albuterol/Ipratropium (Duoneb) 3 ml INHALATION Q4H.RT [facility] Last Admin: 06/18/19 10:57 Dose: 3 ml Documented by: Atorvastatin Calcium (Lipitor) 40 mg PO QHS [facility] Last Admin: 06/17/19 22:54 Dose: Not Given Documented by: Dextrose (D50w Syringe) 0 gm IV X1 PRN; Protocol PRN Reason: Hypoglycemia Enoxaparin Sodium (Lovenox) 40 mg SC DAILY@1000 JOSE ANTONIO Last Admin: 06/18/19 08:51 Dose: Not Given Documented by: Ergocalciferol (Vitamin D) 50,000 unit PO [place] [facility] Glucagon () 1 mg IM .X1 PRN PRN Reason: Hypoglycemia Azithromycin 500 mg/ Dextrose 255 mls @ 250 mls/hr IV QHS [facility] Stop: 06/19/19 23:02 Last Infusion: 06/18/19 01:04 Dose: Infused Documented by: Sodium Chloride () 250 mls @ 15 mls/hr IV .[id number] PRN PRN Reason: Saline Flush Last Infusion: 06/18/19 01:05 Dose: 15 mls/hr Documented by: Insulin Human Lispro (Humalog Kwikpen (Bkc)) 0 unit SC ACHS [facility]; Protocol Last Admin: 06/18/19 11:55 Dose: Not Given Documented by: Lisinopril (Zestril) 10 mg PO DAILY [facility] Last Admin: 06/18/19 08:51 Dose: 10 mg Documented by: Melatonin (Melatonin) 3 mg PO QHS PRN PRN PRN Reason: INSOMNIA Methylprednisolone (Solu-Medrol) 40 mg IV Q8 [facility] Last Admin: 06/18/19 05:30 Dose: 40 mg Documented by: Nicotine (Nicoderm Cq (Pbkc)) 21 mg TRANSDERM. DAILY [facility] Last Admin: 06/18/19 08:51 Dose: 21 mg Documented by: Ondansetron HCl (Zofran) 4 mg IV Q8H PRN PRN PRN Reason: NAUSEA/VOMITING Sodium Chloride () 10 - 40 ml IV UD PRN PRN Reason: SALINE FLUSH Last Admin: 06/18/19 05:32 Dose: 10 ml Documented by: Assessment/Plan All Active Problems COPD exacerbation (Acute) RECOMMENDATIONS: 1. Continue steroids, antibiotics and bronchodilators 2. Continue to encourage BiPAP compliance 3. Wean oxygen as tolerated 4. Walking oximetry prior to discharge, high clinical suspicion for home oxygen requirement IMPRESSIONS: 1. Acute COPD exacerbation Patient with advanced COPD by spirometric criteria in 2017. Patient has continued to smoke, so progression would be anticipated. Patient should have a complete pulmonary function test as an outpatient for quantification clarification of lung function. High clinical risk the patient would not be able to be extubated if intubated. Patient should be continued on steroids, bronchodilators and antibiotics. No acute infiltrates are noted on chest x-ray, so azithromycin is appropriate. Patient would benefit from BiPAP therapy as she does have significant CO2 retention. 2. Probable secondary pulmonary hypertension/polycythemia Patient has a hemoglobin of over 16. Clinical suspicion given advanced bala ng disease is that patient is likely chronically hypoxic at home. Patient should have a walking oximetry prior to discharge. High clinical suspicion that supplemental oxygen will be required, at least with exertion. Can likely hold off on a echocardiogram for pulmonary hypertension as this can be completed as an outpatient. 3. Supply demand ischemia/elevated troponin Clinical suspicion for elevated troponin secondary to severe hypoxic state on presentation. Telemetry is not suggestive of acute ongoing ischemic insult. Defer to hospitalist on whether cardiology needs to evaluate patient. Patient does have risk factors for coronary artery disease including smoking and hypertension. 4. Poor compliance/CODE STATUS Complicates care, management, recovery and prognosis. Stressed to the patient the importance of complying with recommendations to avoid future complications. Long discussion with the patient about CODE STATUS. Patient had reported that she would not want to be intubated under any circumstances. Stressed to the patient that CPR without support of respiratory structures would be inappropriate. Patient stated that she would be DNR Comfort Care arrest without intubation. Patient's refusal to use life support devices, such as BiPAP, is incongruent with full CODE STATUS. Code Visit Inpatient E&M: 04873 Init Hosp L2
--- NOTE | 2019-06-18 13:41 | CPS ---
Pt using Bipap at her own leisure with a nasal cannula on at 3 lpm.
--- NOTE | 2019-06-18 14:07 | CHAPLAIN ---
Type of Pastoral Visit _x__ Initial Visit ___ Follow-up Visit ___ On-call Visit ___ General Patient Visit ___ Spiritual Assessment ___ Family Conference ___ Bereavement ___ Rapid Response ___ Code Blue ___ Other (describe below) Pastoral Care Referral From _x__ Patient ___ Family ___ Nurse ___ Physician ___ Industrial Engineering Intern ___ Cocktail Server ___ Other (describe below) Sacrament/Intervention ___ Active listening ___ Anointing ___ Tenriism ___ Bereavement ___ Communion ___ Xiao exploration ___ ___ Life review ___ Prayer ___ Reconciliation ___ Sacrament of Sick _x__ Supportive presence ___ Wedding ___ Other (describe below) Pastoral Comments
--- NOTE | 2019-06-18 15:35 | CPS ---
NO CHANGES MADE TO BIPAP AT THIS TIME. PT CONTINUES TO HOLD MASK WITH 3 LPM NASAL CANNULA IN NOSE ALSO.
[2019-06-18 16:55] LABS: Bedside Glucose 159 mg/dL (70-110)
--- NOTE | 2019-06-18 17:46 | PCM.PROGNOTE ---
Subjective: Patient was seen and examined today, she is alert and I talked extensively with her today as well as her who is in the room during the time of my examination, patient confirms that she is a full code and wants to be intubated if necessary. Patient does not appear to be confused and is cooperating with nursing and is following commands. - Physical Exam Vitals/I&O's: Vital Signs Temp Pulse Resp BP Pulse Ox 98.3 F 108 H 28 H 146/86 H 96 06/18/19 16:34 06/18/19 16:34 06/18/19 16:34 06/18/19 16:34 06/18/19 16:34 Oxygen Flow Rate (L/min) 5 Oxygen Delivery Method Bi-pap Weight: 66.7 kg Body Mass Index (BMI) 23.0 Intake and Output for Last 24 Hours 06/16/19 06/17/19 06/18/19 23:59 23:59 23:59 Intake Total 150.25 / 150.25 517.5 / 517.5 Balance 150.25 / 150.25 517.5 / 517.5 General: Alert, Oriented x3, Cooperative, No apparent distress, Well developed, Well nourished HEENT: Atraumatic, PERRLA, EOMI, Normocephalic Oral: Moist Mucosa Neck: Supple, Trachea Midline, Thyroid Normal Size and Texture Lungs: No rhonchi, Diminished, Wheezes - Scattered expiratory wheezes bilaterally Cardiovascular: Regular rate, Regular Rhythm, Normal S1, Normal S2, No murmurs, PMI Normal, No rub noted, No Gallop Abdomen: Bowel Sounds Present, Soft, Non Tender, Non-Distended, No hernias noted Extremities: No clubbing, No cyanosis, Capillary Refill Less than 3 Seconds Skin: No rashes, No breakdown Musculoskeletal: No Tenderness to Palpation of Joints or Extremities Neurological: Cranial nerves II-XII grossly intact, Neuro grossly intact, Sensory exam intact to light touch and pain Psych/Mental Status: Normal Affect, Appropriate, Alert and oriented to time, place, person, mood and affect Laboratory Results 06/17/19 17:50: WBC 11.6 H, RBC 5.91 H, Hgb 16.7 H, Hct 51.2 H, MCV 86.6, MCH 28.3, MCHC 32.6, RDW Std Deviation 39.9, RDW Coeff of Sami 12.5, Plt Count 297, MPV 10.5, Immature Gran % (Auto) 0.500, Neut % (Auto) 85.8 H, Lymph % (Auto) 7.2 L, [place] % (Auto) 6.3, Eos % (Auto) 0.0, Baso % (Auto) 0.2, Absolute Neuts (auto) 9.9 H, Absolute Lymphs (auto) 0.83, Nucleated RBC % 0 06/17/19 17:50: Sodium 128 L, Potassium 4.5, Chloride 90 L, Carbon Dioxide 30.0, Anion Gap 8, BUN 17, Creatinine 0.63, Estim Creat Clear Calc 92.35, Est GFR (MDRD) Af Amer 124, Est GFR (MDRD) Non-Af 103, BUN/Creatinine Ratio 27.1 H, Glucose 170 H, Calcium 9.2, Troponin I 0.558 H 06/17/19 21:31: Troponin I 0.527 H 06/17/19 23:00: POC Glucose 176 H 06/18/19 00:22: Troponin I 0.419 H 06/18/19 03:58: Specimen Type ART, Sample Site R Radial, pH 7.30 L, Bicarbonate Actual 34.2 H, POC Total CO2 36, Base Excess 8 H, O2 Saturation 93 L, ABG pCO2 69.2 H*, ABG pO2 75, Arnoldo Test POS, O2 Delivery Device Nasal Can, Liter Flow 3.0, Blood Gas Notified Whom IMAN BERRY, Blood Gas Notified Time 345 06/18/19 05:05: WBC 10.1, RBC 5.65 H, Hgb 16.1 H, Hct 49.3 H, MCV 87.3, MCH 28.5, MCHC 32.7, RDW Std Deviation 39.8, RDW Coeff of Sami 12.5, Plt Count 245, MPV 10.5, Immature Gran % (Auto) 0.300, Neut % (Auto) 86.3 H, Lymph % (Auto) 6.1 L, [place] % (Auto) 7.2, Eos % (Auto) 0.0, Baso % (Auto) 0.1, Absolute Neuts (auto) 8.7 H, Absolute Lymphs (auto) 0.61 L, Nucleated RBC % 0 06/18/19 05:05: Sodium 128 L, Potassium 4.4, Chloride 90 L, Carbon Dioxide 31.0, Anion Gap 7, BUN 20 H, Creatinine 0.69, Estim Creat Clear Calc 84.32, Est GFR (MDRD) Af Amer 111, Est GFR (MDRD) Non-Af 92, BUN/Creatinine Ratio 28.8 H, Glucose 125 H, Calcium 8.9, Triglycerides 67, Cholesterol 257 H, LDL Cholesterol 166 H, VLDL Cholesterol 13, HDL Cholesterol 78 06/18/19 06:42: POC Glucose 132 H 06/18/19 11:40: POC Glucose 140 H 06/18/19 16:33: POC Glucose 159 H Current Medications Acetaminophen (Tylenol) 650 mg PO Q6H PRN PRN PRN Reason: Pain Score 1-3/Temp > 100.7 F Albuterol Sulfate (Ventolin Aerosols) 2.5 mg INHALATION Q2H PRN PRN PRN Reason: SOB/Wheezing Albuterol/Ipratropium (Duoneb) 3 ml INHALATION Q4H.RT [facility] Last Admin: 06/18/19 15:10 Dose: 3 ml Documented by: Atorvastatin Calcium (Lipitor) 40 mg PO QHS [facility] Last Admin: 06/17/19 22:54 Dose: Not Given Documented by: Azithromycin (Zithromax) 500 mg PO Q24@2200 [facility] Dextrose (D50w Syringe) 0 gm IV X1 PRN; Protocol PRN Reason: Hypoglycemia Enoxaparin Sodium (Lovenox) 40 mg SC DAILY@1000 [facility] Last Admin: 06/18/19 08:51 Dose: Not Given Documented by: Ergocalciferol (Vitamin D) 50,000 unit PO Leigh [facility] Glucagon () 1 mg IM .X1 PRN PRN Reason: Hypoglycemia Sodium Chloride () 250 mls @ 15 mls/hr IV .[id number] PRN PRN Reason: Saline Flush Last Infusion: 06/18/19 15:15 Dose: 0 mls/hr Documented by: Insulin Human Lispro (Humalog Kwikpen (Bkc)) 0 unit SC ACHS [facility]; Protocol Last Admin: 06/18/19 16:35 Dose: Not Given Documented by: Lisinopril (Zestril) 10 mg PO DAILY [facility] Last Admin: 06/18/19 08:51 Dose: 10 mg Documented by: Melatonin (Melatonin) 3 mg PO QHS PRN PRN PRN Reason: INSOMNIA Methylprednisolone (Solu-Medrol) 40 mg IV Q8 [facility] Last Admin: 06/18/19 13:23 Dose: 40 mg Documented by: Nicotine (Nicoderm Cq (Pbkc)) 21 mg TRANSDERM. DAILY [facility] Ondansetron HCl (Zofran) 4 mg IV Q8H PRN PRN PRN Reason: NAUSEA/VOMITING Sodium Chloride () 10 - 40 ml IV UD PRN PRN Reason: SALINE FLUSH Last Admin: 06/18/19 05:32 Dose: 10 ml Documented by: Medical Necessity - Tobacco Use Smoking Status: Current every day smoker Tobacco Use: Cigarettes Assessment/Plan All Active Problems COPD exacerbation (Acute) #1 acute COPD exacerbation-continue present treatment, patient continues to smoke at home and is noncompliant with follow-up visits with pulmonary medicine. #2 elevated troponin secondary to acute on chronic respiratory failure #3 acute on chronic respiratory failure #4 poor compliance with medical regimen #5 essential hypertension Code Visit Inpatient E&M: 51918 Subs Hosp L2
[2019-06-18] MEDS: Azithromycin 250 MG Tablet 500 MG PO (21:23)
[2019-06-18 21:45] LABS: Bedside Glucose 127 mg/dL (70-110)
[2019-06-19] VITALS (32 sets, daily range): BP systolic 99–145; BP diastolic 51–85; PULSE 95–123; RESP 12–30; TEMP 36.1–37.1; O2SAT 91–100
[2019-06-19] MEDS: Albuterol 2.5 MG/3 ML VIAL.NEB. INHALATION (04:06)
[2019-06-19] MEDS: 0.9% Saline Lock 10 ML Syringe IV ×2 (06:32→21:35)
[2019-06-19 06:41] LABS: Bedside Glucose 146 mg/dL (70-110)
[2019-06-19] MEDS: Ipratropium/Albuterol Sulfate 3 ML AMPUL.NEB INHALATION ×5 (06:54→22:15)
[2019-06-19 07:25] LABS: Anion Gap 6 (5-15); BUN 21 mg/dL (7-18); BUN/Creat Ratio 37.3 RATIO (10-20); Chloride 89 mmol/L (98-107); Creatinine, Serum 0.56 mg/dL (0.55-1.02); EST Glomerular Filtration Rate 116 mL/min (>60); Est Glom Filt Rate - Afr Amer 141 mL/min (>60); Estimated Creatinine Clearance 103.89 ml/min; Glucose 130 mg/dL (74-106); Magnesium 2.3 mg/dL (1.6-2.6); Phosphorus 2.4 mg/dL (2.5-4.9); Potassium 4.7 mmol/L (3.5-5.1); Sodium Level 126 mmol/L (136-145)
--- NOTE | 2019-06-19 07:48 | CPS ---
Pt still insisting on not wearing bipap headgear. Pt holding mask to face with 3L NC in under mask.
--- NOTE | 2019-06-19 09:34 | PN_ITS ---
Subjective: Patient did okay overnight. Patient did tolerate BiPAP therapy while sleeping. Patient denied any chest pain during my evaluation. Patient still had some conversational dyspnea. - Physical Exam Vitals/I&O's: Vital Signs Temp Pulse Resp BP Pulse Ox 36.7 C 102 H 20 H 109/60 100 06/19/19 08:00 06/19/19 08:00 06/19/19 08:00 06/19/19 08:00 06/19/19 08:00 Oxygen Flow Rate (L/min) 3 Oxygen Delivery Method Bi-pap Weight: 66.7 kg Body Mass Index (BMI) 23.0 Intake and Output for Last 24 Hours 06/17/19 06/18/19 06/19/19 23:59 23:59 23:59 Intake Total 150.25 / 150.25 757.5 / 757.5 120 / 120 Balance 150.25 / 150.25 757.5 / 757.5 120 / 120 General: Alert, Cooperative, No apparent distress, - - Patient on BiPAP during my evaluation. Good synchrony noted. HEENT: Atraumatic, PERRLA, EOMI, Normocephalic, - - No scleral icterus or injection Oral: No Gingival or Mucosal Lesions/ Ulcerations, Dry Mucosa Neck: Supple, No JVD, No Nodes, Trachea Midline Lungs: No rhonchi, No rales, Diminished, Wheezes, - - Symmetric expansion. Cardiovascular: Regular rate, Regular Rhythm, Normal S1, Normal S2, No murmurs, No rub noted, No Gallop, - - Significant kyphosis noted Abdomen: Bowel Sounds Present, Soft, Non Tender, Non-Distended Extremities: No cyanosis, No edema, Capillary Refill Less than 3 Seconds, Clubbing Skin: No rashes, No breakdown Musculoskeletal: No Tenderness to Palpation of Joints or Extremities Lymphatic: No Cervical, Supraclavicular, or Inguinal Adenopathy Neurological: Cranial nerves II-XII grossly intact, Neuro grossly intact, Motor Exam 5/5 strength throughout Psych/Mental Status: Normal Affect, Appropriate Laboratory Results 06/18/19 11:40: POC Glucose 140 H 06/18/19 16:33: POC Glucose 159 H 06/18/19 21:20: POC Glucose 127 H 06/19/19 06:31: POC Glucose 146 H 06/19/19 06:56: Sodium 126 L, Potassium 4.7, Chloride 89 L, Carbon Dioxide 31.0, Anion Gap 6, BUN 21 H, Creatinine 0.56, Estim Creat Clear Calc 103.89, Est GFR (MDRD) Af Amer 141, Est GFR (MDRD) Non-Af 116, BUN/Creatinine Ratio 37.3 H, Glucose 130 H, Calcium 9.0, Phosphorus 2.4 L, Magnesium 2.3 Current Medications Acetaminophen (Tylenol) 650 mg PO Q6H PRN PRN PRN Reason: Pain Score 1-3/Temp > 100.7 F Albuterol Sulfate (Ventolin Aerosols) 2.5 mg INHALATION Q2H PRN PRN PRN Reason: SOB/Wheezing Last Admin: 06/19/19 04:06 Dose: 2.5 mg Documented by: Albuterol/Ipratropium (Duoneb) 3 ml INHALATION Q4H.RT [facility] Last Admin: 06/19/19 06:54 Dose: 3 ml Documented by: Atorvastatin Calcium (Lipitor) 40 mg PO QHS [facility] Last Admin: 06/18/19 21:22 Dose: Not Given Documented by: Azithromycin (Zithromax) 500 mg PO Q24@2200 [facility] Last Admin: 06/18/19 21:23 Dose: 500 mg Documented by: Dextrose (D50w Syringe) 0 gm IV X1 PRN; Protocol PRN Reason: Hypoglycemia Enoxaparin Sodium (Lovenox) 40 mg SC DAILY@1000 [facility] Last Admin: 06/18/19 08:51 Dose: Not Given Documented by: Ergocalciferol (Vitamin D) 50,000 unit PO Leigh [facility] Glucagon () 1 mg IM .X1 PRN PRN Reason: Hypoglycemia Sodium Chloride () 250 mls @ 15 mls/hr IV .[id number] PRN PRN Reason: Saline Flush Last Infusion: 06/18/19 15:15 Dose: 0 mls/hr Documented by: Insulin Human Lispro (Humalog Kwikpen (Bkc)) 0 unit SC ACHS [facility]; Protocol Last Admin: 06/19/19 06:38 Dose: Not Given Documented by: Lisinopril (Zestril) 10 mg PO DAILY [facility] Last Admin: 06/18/19 08:51 Dose: 10 mg Documented by: Melatonin (Melatonin) 3 mg PO QHS PRN PRN PRN Reason: INSOMNIA Methylprednisolone (Solu-Medrol) 40 mg IV Q8 [facility] Last Admin: 06/19/19 06:32 Dose: 40 mg Documented by: Nicotine (Nicoderm Cq (Pbkc)) 21 mg TRANSDERM. DAILY [facility] Ondansetron HCl (Zofran) 4 mg IV Q8H PRN PRN PRN Reason: NAUSEA/VOMITING Sodium Chloride () 10 - 40 ml IV UD PRN PRN Reason: SALINE FLUSH Last Admin: 06/19/19 06:32 Dose: 10 ml Documented by: Medical Necessity - Tobacco Use Smoking Status: Current every day smoker Tobacco Use: Cigarettes Assessment/Plan All Active Problems COPD exacerbation (Acute) RECOMMENDATIONS: 1. Continue steroids, antibiotics and bronchodilators 2. Continue to encourage BiPAP compliance 3. Wean oxygen as tolerated 4. Walking oximetry prior to discharge, high clinical suspicion for home oxygen requirement IMPRESSIONS: 1. Acute COPD exacerbation Patient with advanced COPD by spirometric criteria in 2017. Patient has continued to smoke, so progression of disease would be anticipated. Patient should have a complete pulmonary function test as an outpatient for quantification clarification of lung function. High clinical risk the patient would not be able to be extubated if intubated. Patient should be continued on steroids, bronchodilators and antibiotics. No acute infiltrates are noted on chest x-ray, so azithromycin is appropriate. Patient is tolerating BiPAP therapy at this time 2. Probable secondary pulmonary hypertension/polycythemia Patient has a hemoglobin of over 16. Clinical suspicion given advanced lung disease is that patient is likely chronically hypoxic at home. Patient should have a walking oximetry prior to discharge. High clinical suspicion that supplemental oxygen will be required, at least with exertion. Can likely hold off on a echocardiogram for pulmonary hypertension as this can be completed as an outpatient. Control of hypoxemia would be the first step in therapy. 3. Supply demand ischemia/elevated troponin Clinical suspicion for elevated troponin secondary to severe hypoxic state on presentation. Telemetry is not suggestive of acute ongoing ischemic insult. Defer to hospitalist on whether cardiology needs to evaluate patient. Patient does have risk factors for coronary artery disease including smoking and hypertension. 4. Poor compliance/CODE STATUS Complicates care, management, recovery and prognosis. Stressed to the patient the importance of complying with recommendations to avoid future complications. Patient has given conflicting reports about CODE STATUS to different providers. Patient is currently a full code Code Visit Inpatient E&M: 17231 Subs Hosp L3
[2019-06-19] MEDS: Lisinopril 10 MG Tablet PO (10:50)
--- NOTE | 2019-06-19 12:00 | CASEMGMT ---
SW spoke w/pt in room in regard to LW/POA forms. Pt states that she does not feel she needs to complete the form, that they would be able to make decisions for her. SW explained with out POA forms, the decision maker would be spouse, then children, then parents, then siblings. Pt states she has children and would be fine with them being the decision makers. SW still gave pt the blank forms with the social work rack card, let her know if she would like to put someone as the primary POA to call the department and she can make an appointment as an outpatient to complete the form. Pt states understanding. SW also asked about adding a family member to the demographics page. Pt agreeable to add daughter, Bettye Jefferson, . SW put her information in the demographics in [employer]. At this time, no further social service needs anticipated. NICOLE Caal
--- NOTE | 2019-06-19 12:46 | PCM.PROGNOTE ---
Subjective: Patient seen and examined today, her is in the room today, she is resting quietly on BiPAP. Patient does not appear to be in respiratory distress - Physical Exam Vitals/I&O's: Vital Signs Temp Pulse Resp BP Pulse Ox 98.0 F 103 H 23 H 109/60 93 06/19/19 08:00 06/19/19 10:54 06/19/19 10:54 06/19/19 08:00 06/19/19 10:54 Oxygen Flow Rate (L/min) 3 Oxygen Delivery Method Bi-pap Weight: 66.7 kg Body Mass Index (BMI) 23.0 Intake and Output for Last 24 Hours 06/17/19 06/18/19 06/19/19 23:59 23:59 23:59 Intake Total 150.25 / 150.25 757.5 / 757.5 360 / 360 Balance 150.25 / 150.25 757.5 / 757.5 360 / 360 General: Alert, Oriented x3, Cooperative, No apparent distress, Well developed, Well nourished HEENT: Atraumatic, PERRLA, EOMI, Normocephalic Oral: Moist Mucosa Neck: Supple, Trachea Midline, Thyroid Normal Size and Texture Lungs: Clear to auscultation, No rhonchi, No wheeze, No rales, Diminished Cardiovascular: Regular rate, Regular Rhythm, Normal S1, Normal S2, No murmurs, No Ectopic Activity Abdomen: Bowel Sounds Present, Soft, Non Tender, Non-Distended, No Hepato-splenomegaly, No hernias noted Extremities: No clubbing, No cyanosis, No edema, Capillary Refill Less than 3 Seconds Skin: No rashes, No breakdown Musculoskeletal: No Tenderness to Palpation of Joints or Extremities Neurological: Cranial nerves II-XII grossly intact, Neuro grossly intact, Muscle tone normal, Sensory exam intact to light touch and pain Psych/Mental Status: Normal Affect, Appropriate, Alert and oriented to time, place, person, mood and affect Laboratory Results 06/18/19 16:33: POC Glucose 159 H 06/18/19 21:20: POC Glucose 127 H 06/19/19 06:31: POC Glucose 146 H 06/19/19 06:56: Sodium 126 L, Potassium 4.7, Chloride 89 L, Carbon Dioxide 31.0, Anion Gap 6, BUN 21 H, Creatinine 0.56, Estim Creat Clear Calc 103.89, Est GFR (MDRD) Af Amer 141, Est GFR (MDRD) Non-Af 116, BUN/Creatinine Ratio 37.3 H, Glucose 130 H, Calcium 9.0, Phosphorus 2.4 L, Magnesium 2.3 Current Medications Acetaminophen (Tylenol) 650 mg PO Q6H PRN PRN PRN Reason: Pain Score 1-3/Temp > 100.7 F Albuterol Sulfate (Ventolin Aerosols) 2.5 mg INHALATION Q2H PRN PRN PRN Reason: SOB/Wheezing Last Admin: 06/19/19 04:06 Dose: 2.5 mg Documented by: Albuterol/Ipratropium (Duoneb) 3 ml INHALATION Q4H.RT [facility] Last Admin: 06/19/19 10:54 Dose: 3 ml Documented by: Atorvastatin Calcium (Lipitor) 40 mg PO QHS [facility] Last Admin: 06/18/19 21:22 Dose: Not Given Documented by: Azithromycin (Zithromax) 500 mg PO Q24@2200 [facility] Last Admin: 06/18/19 21:23 Dose: 500 mg Documented by: Dextrose (D50w Syringe) 0 gm IV X1 PRN; Protocol PRN Reason: Hypoglycemia Enoxaparin Sodium (Lovenox) 40 mg SC DAILY@1000 [facility] Last Admin: 06/19/19 10:12 Dose: Not Given Documented by: Ergocalciferol (Vitamin D) 50,000 unit PO Leigh [facility] Glucagon () 1 mg IM .X1 PRN PRN Reason: Hypoglycemia Sodium Chloride () 250 mls @ 15 mls/hr IV .[id number] PRN PRN Reason: Saline Flush Last Infusion: 06/18/19 15:15 Dose: 0 mls/hr Documented by: Insulin Human Lispro (Humalog Kwikpen (Bkc)) 0 unit SC ACHS [facility]; Protocol Last Admin: 06/19/19 12:26 Dose: Not Given Documented by: Lisinopril (Zestril) 10 mg PO DAILY [facility] Last Admin: 06/19/19 10:50 Dose: 10 mg Documented by: Melatonin (Melatonin) 3 mg PO QHS PRN PRN PRN Reason: INSOMNIA Methylprednisolone (Solu-Medrol) 40 mg IV Q8 [facility] Last Admin: 06/19/19 06:32 Dose: 40 mg Documented by: Nicotine (Nicoderm Cq (Pbkc)) 21 mg TRANSDERM. DAILY [facility] Last Admin: 06/19/19 10:49 Dose: 21 mg Documented by: Ondansetron HCl (Zofran) 4 mg IV Q8H PRN PRN PRN Reason: NAUSEA/VOMITING Sodium Chloride () 10 - 40 ml IV UD PRN PRN Reason: SALINE FLUSH Last Admin: 06/19/19 06:32 Dose: 10 ml Documented by: Medical Necessity - Tobacco Use Smoking Status: Current every day smoker Tobacco Use: Cigarettes Assessment/Plan All Active Problems COPD exacerbation (Acute) #1 acute COPD exacerbation-continue present treatment, patient continues to smoke at home and is noncompliant with follow-up visits with pulmonary medicine. Pulmonary medicine is participating in her care during this admission #2 elevated troponin secondary to acute on chronic respiratory failure #3 acute on chronic respiratory failure #4 poor compliance with medical regimen #5 essential hypertension #6 hyponatremia-continue to observe, repeat BMP tomorrow, etiology unknown #7 hyperlipidemia Code Visit Inpatient E&M: 06077 Subs Hosp L2
[2019-06-19 17:20] LABS: Bedside Glucose 113 mg/dL (70-110)
[2019-06-19 17:20] LABS: Bedside Glucose 154 mg/dL (70-110)
[2019-06-19] MEDS: Azithromycin 250 MG Tablet 500 MG PO (21:34)
[2019-06-19 23:35] LABS: Bedside Glucose 147 mg/dL (70-110)
[2019-06-20] VITALS (30 sets, daily range): BP systolic 84–137; BP diastolic 43–99; PULSE 90–118; RESP 12–24; TEMP 36.4–36.9; O2SAT 89–99
[2019-06-20] MEDS: Ipratropium/Albuterol Sulfate 3 ML AMPUL.NEB INHALATION ×6 (03:30→22:38)
[2019-06-20 06:41] LABS: Anion Gap 6 (5-15); BUN 22 mg/dL (7-18); BUN/Creat Ratio 36.1 RATIO (10-20); Calcium,Total 9.4 mg/dL (8.5-10.1); Chloride 96 mmol/L (98-107); Creatinine, Serum 0.61 mg/dL (0.55-1.02); EST Glomerular Filtration Rate 106 mL/min (>60); Est Glom Filt Rate - Afr Amer 128 mL/min (>60); Estimated Creatinine Clearance 95.37 ml/min; Glucose 133 mg/dL (74-106); Potassium 4.4 mmol/L (3.5-5.1); Sodium Level 135 mmol/L (136-145)
[2019-06-20] MEDS: 0.9% Saline Lock 10 ML Syringe IV ×2 (06:48→14:09)
[2019-06-20 06:55] LABS: Bedside Glucose 120 mg/dL (70-110)
--- NOTE | 2019-06-20 08:32 | PCM.PN.PUL ---
Subjective: Patient not very cooperative with my examination. Patient believes she is improving, but not answering many other questions. Patient was on BiPAP on my evaluation. Discussed with nursing. Patient reportedly does become more tachypneic, tachycardic and hypoxic off of the BiPAP. - Physical Exam Vitals/I&O's: Vital Signs Temp Pulse Resp BP Pulse Ox 36.6 C 92 20 H 84/43 L 97 06/20/19 07:00 06/20/19 07:27 06/20/19 07:08 06/20/19 07:00 06/20/19 07:08 Oxygen Flow Rate (L/min) 3 Oxygen Delivery Method Bi-pap Weight: 66.7 kg Body Mass Index (BMI) 23.0 Intake and Output for Last 24 Hours 06/18/19 06/19/19 06/20/19 23:59 23:59 23:59 Intake Total 757.5 / 757.5 720 / 720 120 / 120 Balance 757.5 / 757.5 720 / 720 120 / 120 General: Alert, No apparent distress, Non-Cooperative, - - Good BiPAP synchrony. Appears older than stated age. HEENT: Atraumatic, PERRLA, EOMI, Normocephalic, - - No scleral icterus or injection noted Oral: Moist Mucosa, No Gingival or Mucosal Lesions/ Ulcerations Neck: Supple, No JVD, No Nodes, Trachea Midline Lungs: No rhonchi, No rales, Diminished, Wheezes, - - Symmetric expansion. No dullness to percussion. Cardiovascular: Regular rate, Regular Rhythm, Normal S1, Normal S2, No murmurs, No rub noted, No Gallop Abdomen: Bowel Sounds Present, Soft, Non Tender, Non-Distended Extremities: No cyanosis, No edema, Capillary Refill Less than 3 Seconds, Clubbing Skin: No rashes, No breakdown Musculoskeletal: No Tenderness to Palpation of Joints or Extremities Lymphatic: No Cervical, Supraclavicular, or Inguinal Adenopathy Neurological: Cranial nerves II-XII grossly intact, Neuro grossly intact, Motor Exam 5/5 strength throughout Psych/Mental Status: Alert and oriented to time, place, person, mood and affect Laboratory Results 06/19/19 12:14: POC Glucose 154 H 06/19/19 17:16: POC Glucose 113 H 06/19/19 21:32: POC Glucose 147 H 06/20/19 05:25: Sodium 135 L, Potassium 4.4, Chloride 96 L, Carbon Dioxide 33.0 H, Anion Gap 6, BUN 22 H, Creatinine 0.61, Estim Creat Clear Calc 95.37, Est GFR (MDRD) Af Amer 128, Est GFR (MDRD) Non-Af 106, BUN/Creatinine Ratio 36.1 H, Glucose 133 H, Calcium 9.4 06/20/19 06:45: POC Glucose 120 H Current Medications Acetaminophen (Tylenol) 650 mg PO Q6H PRN PRN PRN Reason: Pain Score 1-3/Temp > 100.7 F Albuterol Sulfate (Ventolin Aerosols) 2.5 mg INHALATION Q2H PRN PRN PRN Reason: SOB/Wheezing Last Admin: 06/19/19 04:06 Dose: 2.5 mg Documented by: Albuterol/Ipratropium (Duoneb) 3 ml INHALATION Q4H.RT [facility] Last Admin: 06/20/19 07:08 Dose: 3 ml Documented by: Atorvastatin Calcium (Lipitor) 40 mg PO QHS [facility] Last Admin: 06/19/19 21:36 Dose: Not Given Documented by: Azithromycin (Zithromax) 500 mg PO Q24@2200 [facility] Last Admin: 06/19/19 21:34 Dose: 500 mg Documented by: Dextrose (D50w Syringe) 0 gm IV X1 PRN; Protocol PRN Reason: Hypoglycemia Enoxaparin Sodium (Lovenox) 40 mg SC DAILY@1000 [facility] Last Admin: 06/19/19 10:12 Dose: Not Given Documented by: Ergocalciferol (Vitamin D) 50,000 unit PO Leigh [facility] Glucagon () 1 mg IM .X1 PRN PRN Reason: Hypoglycemia Sodium Chloride () 250 mls @ 15 mls/hr IV .[id number] PRN PRN Reason: Saline Flush Last Infusion: 06/18/19 15:15 Dose: 0 mls/hr Documented by: Insulin Human Lispro (Humalog Kwikpen (Bkc)) 0 unit SC ACHS [facility]; Protocol Last Admin: 06/20/19 06:51 Dose: Not Given Documented by: Lisinopril (Zestril) 10 mg PO DAILY [facility] Last Admin: 11/27/19 10:50 Dose: 10 mg Documented by: Melatonin (Melatonin) 3 mg PO QHS PRN PRN PRN Reason: INSOMNIA Methylprednisolone (Solu-Medrol) 40 mg IV Q8 [facility] Last Admin: 06/20/19 06:48 Dose: 40 mg Documented by: Nicotine (Nicoderm Cq (Pbkc)) 21 mg TRANSDERM. DAILY [facility] Last Admin: 06/19/19 10:49 Dose: 21 mg Documented by: Ondansetron HCl (Zofran) 4 mg IV Q8H PRN PRN PRN Reason: NAUSEA/VOMITING Sodium Chloride () 10 - 40 ml IV UD PRN PRN Reason: SALINE FLUSH Last Admin: 06/20/19 06:48 Dose: 10 ml Documented by: Medical Necessity - Tobacco Use Smoking Status: Current every day smoker Tobacco Use: Cigarettes Assessment/Plan All Active Problems COPD exacerbation (Acute) RECOMMENDATIONS: 1. Continue steroids, antibiotics and bronchodilators at current dosing 2. Continue to encourage BiPAP compliance 3. Wean oxygen as tolerated 4. Walking oximetry prior to discharge, high clinical suspicion for home oxygen requirement 5. BiPAP breaks as tolerated. Anticipate protracted course given advanced lung disease IMPRESSIONS: 1. Acute COPD exacerbation Patient with advanced COPD by spirometric criteria in 2017. Patient has continued to smoke, so progression of disease would be anticipated. Patient should have a complete pulmonary function test as an outpatient for quantification clarification of lung function. High clinical risk the patient would not be able to be extubated if intubated. Will continue patient on current therapy. Would not wean steroids until patient is able to tolerate off of BiPAP throughout the day. No acute infiltrates were noted on the chest x-ray initially. Patient has not spiked any fevers to indicate superinfection. Patient does likely have advanced lung disease and will have a protracted course. 2. Probable secondary pulmonary hypertension/polycythemia Patient has a hemoglobin of over 16. Clinical suspicion given advanced lung disease is that patient is likely chronically hypoxic at home. Patient should have a walking oximetry prior to discharge. High clinical suspicion that supplemental oxygen will be required, at least with exertion. Can likely hold off on a echocardiogram for pulmonary hypertension as this can be completed as an outpatient. Control of hypoxemia would be the first step in therapy for pulmonary hypertension. 3. Supply demand ischemia/elevated troponin Clinical suspicion for elevated troponin secondary to severe hypoxic state on presentation. Telemetry is not suggestive of acute ongoing ischemic insult. Defer to hospitalist on whether cardiology needs to evaluate patient. Patient does have risk factors for coronary artery disease including smoking and hypertension. 4. Poor compliance/CODE STATUS Complicates care, management, recovery and prognosis. Stressed to the patient the importance of complying with recommendations to avoid future complications. Patient has given conflicting reports about CODE STATUS to different providers. Patient is currently a full code Code Visit Inpatient E&M: 71534 Subs Hosp L3
[2019-06-20] MEDS: Lisinopril 10 MG Tablet PO (09:40)
--- NOTE | 2019-06-20 11:30 | CPS ---
Pt was offered Bipap but refused to be put back on. Pt was instructed to not allow herself to work to hard at breathing. Pt was informed that if she started to feel it was becoming more difficult to breath we should place her back on Bipap.
--- NOTE | 2019-06-20 11:52 | PCM.PROGNOTE ---
Subjective: Day #3 azithromycin The patient is a 58-year-old female admitted to [facility] with acute COPD exacerbation. Past medical history is significant for stage IV COPD, hypertension, chronic respiratory failure, ongoing nicotine dependence, Noncompliance with medical regimen and hyperlipidemia. Oxygen saturation on room air at admission was 65%. She has been on BiPAP primarily at night. Chest x-ray at admission showed findings consistent with COPD with no infiltrates, pleural effusions or pulmonary vascular congestion. She is being followed by Dr. Scottie Enamorado from pulmonary medicine. She is still on Solu-Medrol 40 mg IV every 8 hours. Discussed with nursing. She does get more tachypneic, more tachycardic and hypoxic off of BiPAP. She was seen by Dr. Enamorado this morning and was not cooperative with his examination. She did not show up for a scheduled post hospital visit with Dr. Enamorado on 10/31/2018. She follows at the [facility]. All events of the past 24 hours of been reviewed. She has been afebrile since admission She is tachycardic with heart rates ranging from 90 - 118 over the past 12 hours. Blood pressure is within normal limits. The current pulse ox is 89% - 93% on a 4 L nasal cannula and she is tachypneic with a heart rate of 117. All lab was personally reviewed. The sodium has increased to 135 from 126 on 06/19/2019. Serum bicarb today is mildly increased to 33. The BUN is stable at 22 and the creatinine is 0.61. Blood sugars are mildly elevated secondary to high-dose intravenous steroids. She denies chest pain. She is requesting to be discharged today. She has had home oxygen in the past but this was discontinued by Dr. Trimble at [facility]. Apparently she did not have any formal ambulatory pulse ox on room air prior to discontinuation of the oxygen. 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 she has [employer] always. She uses Albuterol aerosols at home. Most recent PFTs did show severe large airway obstructive disease with no improvement with bronchodilators. She also has restrictive lung disease. She tells me that she has quit smoking in the past for as long as a year but, goes back to it when she is anxious. Tells me that this time she is done!. Significant other also smokes. She is agreeable to following up with Dr. Enamorado after DC. - Physical Exam Vitals/I&O's: Vital Signs Temp Pulse Resp BP Pulse Ox 98 F 117 H 20 H 125/65 H 89 06/20/19 10:00 06/20/19 11:16 06/20/19 11:16 06/20/19 10:00 06/20/19 11:16 Oxygen Flow Rate (L/min) 4 Oxygen Delivery Method Nasal Cannula Weight: 147 lb 0.773 oz Body Mass Index (BMI) 23.0 Intake and Output for Last 24 Hours 06/18/19 06/19/19 06/20/19 23:59 23:59 23:59 Intake Total 757.5 / 757.5 720 / 720 120 / 120 Balance 757.5 / 757.5 720 / 720 120 / 120 General: Alert, Oriented x3, Cooperative, Well developed, Well nourished, - - she is sitting in the bed, hunched over and is tachypneic but, no conversational dyspnea. HEENT: Atraumatic Oral: Moist Mucosa Neck: Supple, Trachea Midline Lungs: Clear to auscultation, Diminished - very diminished in all lung bass Cardiovascular: Regular Rhythm, Normal S1, Normal S2, No murmurs, No rub noted, No Gallop, Tachycardic Abdomen: Bowel Sounds Present, Soft, Non Tender, Non-Distended Extremities: No cyanosis, No edema, Clubbing Skin: No rashes Neurological: Cranial nerves II-XII grossly intact, Neuro grossly intact Psych/Mental Status: Normal Affect, Appropriate Laboratory Results 06/19/19 12:14: POC Glucose 154 H 06/19/19 17:16: POC Glucose 113 H 06/19/19 21:32: POC Glucose 147 H 06/20/19 05:25: Sodium 135 L, Potassium 4.4, Chloride 96 L, Carbon Dioxide 33.0 H, Anion Gap 6, BUN 22 H, Creatinine 0.61, Estim Creat Clear Calc 95.37, Est GFR (MDRD) Af Amer 128, Est GFR (MDRD) Non-Af 106, BUN/Creatinine Ratio 36.1 H, Glucose 133 H, Calcium 9.4 06/20/19 06:45: POC Glucose 120 H Current Medications Acetaminophen (Tylenol) 650 mg PO Q6H PRN PRN PRN Reason: Pain Score 1-3/Temp > 100.7 F Albuterol Sulfate (Ventolin Aerosols) 2.5 mg INHALATION Q2H PRN PRN PRN Reason: SOB/Wheezing Last Admin: 06/19/19 04:06 Dose: 2.5 mg Documented by: Albuterol/Ipratropium (Duoneb) 3 ml INHALATION Q4H.RT [facility] Last Admin: 06/20/19 11:16 Dose: 3 ml Documented by: Atorvastatin Calcium (Lipitor) 40 mg PO QHS [facility] Last Admin: 06/19/19 21:36 Dose: Not Given Documented by: Azithromycin (Zithromax) 500 mg PO Q24@2200 [facility] Last Admin: 06/19/19 21:34 Dose: 500 mg Documented by: Dextrose (D50w Syringe) 0 gm IV X1 PRN; Protocol PRN Reason: Hypoglycemia Enoxaparin Sodium (Lovenox) 40 mg SC DAILY@1000 [facility] Last Admin: 06/20/19 09:43 Dose: Not Given Documented by: Ergocalciferol (Vitamin D) 50,000 unit PO Leigh [facility] Glucagon () 1 mg IM .X1 PRN PRN Reason: Hypoglycemia Sodium Chloride () 250 mls @ 15 mls/hr IV .[id number] PRN PRN Reason: Saline Flush Last Infusion: 06/18/19 15:15 Dose: 0 mls/hr Documented by: Insulin Human Lispro (Humalog Kwikpen (Bkc)) 0 unit SC ACHS [facility]; Protocol Last Admin: 06/20/19 06:51 Dose: Not Given Documented by: Lisinopril (Zestril) 10 mg PO DAILY [facility] Last Admin: 06/20/19 09:40 Dose: 10 mg Documented by: Melatonin (Melatonin) 3 mg PO QHS PRN PRN PRN Reason: INSOMNIA Methylprednisolone (Solu-Medrol) 40 mg IV Q8 [facility] Last Admin: 06/20/19 06:48 Dose: 40 mg Documented by: Nicotine (Nicoderm Cq (Pbkc)) 21 mg TRANSDERM. DAILY [facility] Last Admin: 06/20/19 09:42 Dose: 21 mg Documented by: Ondansetron HCl (Zofran) 4 mg IV Q8H PRN PRN PRN Reason: NAUSEA/VOMITING Sodium Chloride () 10 - 40 ml IV UD PRN PRN Reason: SALINE FLUSH Last Admin: 06/20/19 06:48 Dose: 10 ml Documented by: Medical Necessity - Tobacco Use Smoking Status: Current every day smoker Tobacco Use: Cigarettes Assessment/Plan All Active Problems COPD exacerbation (Acute) Impressions 1. Acute exacerbation of COPD 2. Acute combined respiratory failure requiring high flow oxygen/BiPAP rescue 3. History of chronic respiratory failure with hypoxia-previously on outpatient oxygen however this was discontinued by her primary care provider 4. Tobacco dependence 5. Very Severe COPD by spirometric criteria in 2017. Gold's classification stage IV FEV1 is 35%. Severe large airway obstruction with no improvement with bronchodilators. 6. Probable restrictive lung disease 7. Polycythemia-likely secondary to chronic hypoxia 8. Dyslipidemia 9. Elevated troponin at admission-suspect secondary to severe hypoxia but, she has several RF's for CAD including age, smoking hx and HTN. Will order an ECHO for the AM to look at wall motion and also to evaluate for pulmonary HTN 10. Chronic anxiety-worse when she feels she cannot get a deep breath. Transition to prednisone 40 mg p.o. daily Ambulatory pulse ox in the a.m. to determine oxygen requirement Will need a nicotine patch at at discharge and she is agreeable to this. Start Zoloft 25 mg p.o. daily-patient agreeable. Would like to control anxiety without potentially addictive medications. I advised her to apply for pulmonary disability. Would like to go home in the AM if possible. She will follow up with Dr. Enamorado in the office post DC Code Visit Inpatient E&M: 72734 Subs Hosp L2
[2019-06-20 12:37] LABS: AST(SGOT) 16 U/L (15-37); Alanine Aminotransfer ALT/SGPT 30 U/L (13-56); Albumin, Serum 3.5 g/dL (3.2-5.0); Alkaline Phosphatase 62 U/L (45-117); Bilirubin, Direct 0.08 mg/dL (0.00-0.30); Globulin 3.3 g/dL (2.2-4.2); Magnesium 2.3 mg/dL (1.6-2.6); Phosphorus 3.2 mg/dL (2.5-4.9); Protein, Total 6.8 g/dL (6.4-8.2)
[2019-06-20 14:16] LABS: Bedside Glucose 144 mg/dL (70-110)
--- NOTE | 2019-06-20 15:53 | ECHOD_ITS ---
Reason For Study: ELEVATED TROPONIN Procedure This was a 2D Doppler, Color Flow transthoracic echocardiogram. Exam performed portable in patient room. Left Ventricle Normal LV size. Left ventricular systolic function is lower limits of normal. The estimated ejection fraction is 45 %. Stage 1 diastolic dysfunction. No regional wall motion abnormalities noted. Right Ventricle Normal RV size. Normal systolic function. Atria Normal left atrium. Normal right atrium. Mitral Valve Normal mitral valve. Tricuspid Valve Normal tricuspid valve. Mild (1+) tricuspid valve insufficiency. Pulmonary artery systolic pressure is 26 mmHg. Aortic Valve The aortic valve is not well visualized. Pulmonic Valve The pulmonic valve is not well visualized. Great Vessels Normal aortic root. The pulmonary artery is normal size. Normal inferior vena cava. Pericardium/Pleural No pericardial effusion. MMode/2D Measurements & Calculations LVIDd: 3.9 cm IVSd: 0.84 cm Ao root diam: 3.2 cm LVIDs: 3.0 cm LVPWd: 0.89 cm RVDd: 3.4 cm FS: 22.4 % LAV(MOD-bp): 31.0 ml LVAd ap4: 30.7 cm2 SV(MOD-sp4): 39.8 ml LAV(MOD-bp) Indexed: 17.5 ml/m2 EDV(MOD-sp4): 96.7 ml LAV(MOD-sp2): 40.3 ml EDV(sp4-el): 99.3 ml LAV(MOD-sp4): 17.5 ml LVAs ap4: 21.5 cm2 ESV(MOD-sp4): 56.9 ml ESV(sp4-el): 56.7 ml EF(MOD-sp4): 41.2 % EF(sp4-el): 42.9 % SV(sp4-el): 42.7 ml LA A4 area: 8.8 cm2 LA dimension(2D): 3.0 cm RA A4 area: 9.2 cm2 Time Measurements MV dec time: 0.22 sec Doppler Measurements & Calculations MV E max harris: 57.5 cm/sec Lat Peak E' Harris: 9.3 cm/sec Med Peak E' Harris: 8.5 cm/sec MV A max harris: 86.4 cm/sec E/E' lat: 6.2 E/E' med: 6.7 MV E/A: 0.67 Ao V2 max: 128.1 cm/sec LV V1 max: 80.0 cm/sec PA V2 max: 81.0 cm/sec Ao max P.6 mmHg LV V1 max P.6 mmHg TR max harris: 238.7 cm/sec TR max P.8 mmHg Interpretation Summary Normal LV size. Left ventricular systolic function is lower limits of normal. The estimated ejection fraction is 45 %. Stage 1 diastolic dysfunction. Mild (1+) tricuspid valve insufficiency. Ordering Physician: Isamar Munoz Referring Physician: Nataliya Trimble Performed By: Isidra Stallings RDCS
[2019-06-20] MEDS: predniSONE 20 MG Tablet 40 MG PO (16:39)
[2019-06-20] MEDS: Sertraline 50 MG Tablet 25 MG PO (16:39)
[2019-06-20 16:50] LABS: Bedside Glucose 167 mg/dL (70-110)
[2019-06-20] MEDS: Azithromycin 250 MG Tablet 500 MG PO (21:13)
[2019-06-20] MEDS: MELATONIN 3 MG TABLET PO (21:13)
[2019-06-20 21:25] LABS: Bedside Glucose 209 mg/dL (70-110)
[2019-06-21] VITALS (21 sets, daily range): BP systolic 92–151; BP diastolic 50–72; PULSE 92–112; RESP 12–24; TEMP 36.2–36.8; O2SAT 88–98
[2019-06-21] MEDS: Ipratropium/Albuterol Sulfate 3 ML AMPUL.NEB INHALATION ×6 (03:50→22:56)
[2019-06-21 08:26] LABS: Bedside Glucose 105 mg/dL (70-110)
--- NOTE | 2019-06-21 08:32 | CON.PCM_ITS ---
Reason for Consult Date of Consultation: 06/21/19 Reason for Consultation: Persistent shortness of breath abnormal troponins History of Present Illness: The patient is a 58 year old F with no previous cardiac history who presented approximately 4 days ago with persistent and progressive shortness of breath. She says that this was present even at rest. She was noted to have a low pulse oximetry saturation at approximately 65%. She was treated for exacerbation of obstructive pulmonary disease. She was also noted to have incidentally mildly abnormal troponin. She denies any neck arm or jaw discomfort suggest angina no dizziness or diaphoresis no near syncope or syncope. She continues to work actively. Due to the persistence of the above cardiology was asked to see patient for evaluation and management. [] Past Medical History Allergies/Adverse Reactions: Allergies codeine Allergy (Verified 06/17/19 17:29) Rash ibuprofen Allergy (Verified 06/17/19:) Rash Home Medications: Ambulatory Orders Medication Instructions Recorded Acetaminophen [Tylenol] 1,000 mg PO DAILY PRN PRN 10/04/18 Albuterol Sulfate [Ventolin Hfa] 1 - 2 puff PO PRN PRN 10/04/18 Lisinopril [Zestril] 10 mg PO DAILY 10/04/18 Tiotropium Brandon [Spiriva 1 puff INHALATION DAILY 10/04/18 Respimat] Albuterol Aerosols [Ventolin 2.5 mg INHALATION Q6HWA.RT #120 10/05/18 Aerosols] vial.neb. Nicotine [Nicoderm Cq] 21 mg TRANSDERM. DAILY patch 10/05/18 Cholecalciferol (Vitamin D3) 50,000 unit PO DACOSTA 06/17/19 [D3-50] Prednisone 20 mg PO DAILY 06/17/19 Past Medical History (Chronic Problems): Chronic Problems Cigarette smoker (Chronic) Hypertension (Chronic) Stage 4 very severe COPD by GOLD classification (Chronic) Surgical History: - - Tubal ligation - *Family History Paternal History Items: Cancer - His father had lung cancer, COPD Maternal History Items: Cancer - Breast Lives: With Family Smoking Status: Current every day smoker Tobacco Use: Cigarettes Alcohol: None Drugs: None Review of Systems - Review of Systems General: Denies: Fever, Night Sweats, Fatigue HEENT: Denies: Vision Change Cardiovascular: Reports: Shortness of Breath, Shortness of Breath at Rest, Shortness of Breath with Exertion. Denies: Chest Discomfort, Orthopnea, PND, Peripheral Edema, Palpitations, Lightheadedness, Dizziness, Near Syncope, Syncope Respiratory: Denies: Cough, Sputum Production, Hemoptysis Gastrointestinal: Denies: Hematemesis, Hematochezia, Melena Genitourinary: Denies: Dysuria, Hematuria Skin: Denies: Rash Neurological: Denies: Dizziness Psychiatric: Denies: Anxiety Subjectve: Middle-aged lady looking older than her stated age appears to be rather short of breath Objective: Vital Signs Temp Pulse Resp BP Pulse Ox 98.0 F 112 H 20 H 142/64 H 88 06/21/19 05:00 06/21/19 07:14 06/21/19 07:14 06/21/19 05:00 06/21/19 08:27 Oxygen Flow Rate (L/min) [ 6 AMBULATION with Oxygen] Oxygen Flow Rate (L/min) 4 Oxygen Delivery Method Bi-pap Weight: 147 lb 0.773 oz Body Mass Index (BMI) 23.0 Intake and Output for Last 24 Hours 06/19/19 06/20/19 06/21/19 23:59 23:59 23:59 Intake Total 720 / 720 1820 / 1820 120 / 120 Output Total 450 / 450 Balance 720 / 720 1370 / 1370 120 / 120 General: Awake, Alert, Oriented x 3 HEENT: PERRL, EOMI, Sclera Non Icteric Neck: Supple, Good ROM, No Lymph Node Enlargement Lungs: Diminished Shyam Bases Cardiovascular: Regular Rhythm, Normal S1, Normal S2, No Murmurs, No Rubs, No Gallops Vascular: No Carotid Bruits, Normal Femoral Pulses, Normal Radial Pulses, Normal Dorsalis Pedal Pulse, Normal Posterior Tibial Pulses Abdomen: Bowel Sounds Present, Soft, Non Tender, No HSM, No Organomegaly Extremities: No Cyanosis, No Clubbing, No edema Musculoskeletal: No Erythema Skin: No Rashes Lymphatic: No Lymph Node Enlargement Neurological: No Focal Motor or Sensory Deficit Psych/Mental Status: Appropriate 06/20/19 05:25: Phosphorus 3.2, Magnesium 2.3, Total Bilirubin 0.40, Direct Bilirubin 0.08 Rhythm: EKG: Normal sinus rhythm with no acute changes ECHO: Pending Stress Test: Cardiac Cath: PCI: CT Surgery: Holter monitor: EPS: PPM: CXR: Chest CT Scan: Assessment/Plan 1. Shortness of breath * The etiology of the above is unclear at the present time. It has been previously attributed to obstructive coronary disease. * It may be helpful to exclude diastolic dysfunction or pulmonary hypertension and I do agree with the echocardiogram which will be evaluated later today. Depending on the findings further recommendations will also be made. * Natruretic peptide level should be performed 2. Abnormal cardiac enzymes * Patient was noted to have abnormal cardiac enzymes. She was rather hypoxic on presentation and this could be secondary to demand ischemia. He did not have a particular rise and fall pattern. It may be helpful to have seen the echo to see whether any regional wall motion abnormalities. No EKG changes are noted. At some time the patient may need to be evaluated formally for coronary artery disease either with stress testing or other means. * This will be determined as treatment progresses and patient improves from the pulmonary standpoint. * * Thank you for allowing me to participate in the care of your patient. Please don't hesitate to call if any issues arise
--- NOTE | 2019-06-21 09:17 | PN_ITS ---
Subjective: Patient did okay overnight. Patient reports subjective improvement in overall condition. No chest pain is been reported. Patient states that she did do a walk earlier today and required 6 L nasal cannula to maintain saturations. Patient believes her cough is improving. Patient has not required BiPAP during the day, but continues to use it overnight with sleep. - Physical Exam Vitals/I&O's: Vital Signs Temp Pulse Resp BP Pulse Ox 36.7 C 112 H 20 H 142/64 H 94 06/21/19 05:00 06/21/19 07:14 06/21/19 07:14 06/21/19 05:00 06/21/19 08:28 Oxygen Flow Rate (L/min) [ 6 AMBULATION with Oxygen] Oxygen Flow Rate (L/min) 3 Oxygen Delivery Method Nasal Cannula Weight: 66.7 kg Body Mass Index (BMI) 23.0 Intake and Output for Last 24 Hours 06/19/19 06/20/19 06/21/19 23:59 23:59 23:59 Intake Total 720 / 720 1820 / 1820 120 / 120 Output Total 450 / 450 Balance 720 / 720 1370 / 1370 120 / 120 General: Alert, Oriented x3, Cooperative, No apparent distress, - - Appears older than stated age. Speaking in full sentences. HEENT: Atraumatic, PERRLA, EOMI, Normocephalic, - - Scleral injection noted. Oral: Moist Mucosa, No Gingival or Mucosal Lesions/ Ulcerations Neck: Supple, No JVD, No Nodes, Trachea Midline Lungs: No rhonchi, No rales, Diminished, Wheezes - At end exhalation, - - Significant kyphosis noted. Cardiovascular: Regular rate, Regular Rhythm, Normal S1, Normal S2, No murmurs, No rub noted, No Gallop Abdomen: Bowel Sounds Present, Soft, Non Tender, Non-Distended Extremities: No cyanosis, Clubbing, Edema Skin: No rashes, No breakdown Musculoskeletal: No Tenderness to Palpation of Joints or Extremities, No Muscle Wasting Lymphatic: No Cervical, Supraclavicular, or Inguinal Adenopathy Neurological: Cranial nerves II-XII grossly intact, Neuro grossly intact, Motor Exam 5/5 strength throughout Psych/Mental Status: Alert and oriented to time, place, person, mood and affect Laboratory Results 06/20/19 05:25: Phosphorus 3.2, Magnesium 2.3, Total Bilirubin 0.40, Direct Bilirubin 0.08, AST 16, ALT 30, Alkaline Phosphatase 62, Total Protein 6.8, Albumin 3.5, Globulin 3.3 06/20/19 14:05: POC Glucose 144 H 06/20/19 16:43: POC Glucose 167 H 06/20/19 21:12: POC Glucose 209 H 06/21/19 06:37: POC Glucose 105 Current Medications Acetaminophen (Tylenol) 650 mg PO Q6H PRN PRN PRN Reason: Pain Score 1-3/Temp > 100.7 F Albuterol Sulfate (Ventolin Aerosols) 2.5 mg INHALATION Q2H PRN PRN PRN Reason: SOB/Wheezing Last Admin: 06/19/19 04:06 Dose: 2.5 mg Documented by: Albuterol/Ipratropium (Duoneb) 3 ml INHALATION Q4H.RT [facility] Last Admin: 06/21/19 07:14 Dose: 3 ml Documented by: Atorvastatin Calcium (Lipitor) 40 mg PO QHS [facility] Last Admin: 06/20/19 21:13 Dose: Not Given Documented by: Azithromycin (Zithromax) 500 mg PO Q24@2200 [facility] Last Admin: 06/20/19 21:13 Dose: 500 mg Documented by: Dextrose (D50w Syringe) 0 gm IV X1 PRN; Protocol PRN Reason: Hypoglycemia Enoxaparin Sodium (Lovenox) 40 mg SC DAILY@1000 [facility] Last Admin: 06/20/19 09:43 Dose: Not Given Documented by: Ergocalciferol (Vitamin D) 50,000 unit PO Leigh [facility] Glucagon () 1 mg IM .X1 PRN PRN Reason: Hypoglycemia Sodium Chloride () 250 mls @ 15 mls/hr IV .[id number] PRN PRN Reason: Saline Flush Last Infusion: 06/20/19 07:38 Dose: 0 mls/hr Documented by: Insulin Human Lispro (Humalog Kwikpen (Bkc)) 0 unit SC ACHS [facility]; Protocol Last Admin: 06/21/19 06:39 Dose: Not Given Documented by: Lisinopril (Zestril) 10 mg PO DAILY [facility] Last Admin: 06/20/19 09:40 Dose: 10 mg Documented by: Melatonin (Melatonin) 3 mg PO QHS PRN PRN PRN Reason: INSOMNIA Last Admin: 06/20/19 21:13 Dose: 3 mg Documented by: Nicotine (Nicoderm Cq (Pbkc)) 21 mg TRANSDERM. DAILY [facility] Last Admin: 06/20/19 09:42 Dose: 21 mg Documented by: Ondansetron HCl (Zofran) 4 mg IV Q8H PRN PRN PRN Reason: NAUSEA/VOMITING Prednisone () 40 mg PO DAILY@0800 [facility] Sertraline HCl (Zoloft) 25 mg PO DAILY [facility] Last Admin: 06/20/19 16:39 Dose: 25 mg Documented by: Sodium Chloride () 10 - 40 ml IV UD PRN PRN Reason: SALINE FLUSH Last Admin: 06/20/19 14:09 Dose: 20 ml Documented by: Medical Necessity - Tobacco Use Smoking Status: Current every day smoker Tobacco Use: Cigarettes Assessment/Plan All Active Problems COPD exacerbation (Acute) RECOMMENDATIONS: 1. Continue antibiotics and bronchodilators at current dosing. Wean prednisone over the next 12 to 14 days 2. Continue to encourage BiPAP compliance 3. Wean oxygen as tolerated 4. Walking oximetry prior to discharge, high clinical suspicion for home oxygen requirement 5. Await results of echocardiogram IMPRESSIONS: 1. Acute COPD exacerbation Patient with advanced COPD by spirometric criteria in 2017. Patient has continued to smoke, so progression of disease would be anticipated. Patient should have a complete pulmonary function test as an outpatient for quantification clarification of lung function. High clinical risk the patient would not be able to be extubated if intubated. Will continue patient on current therapy. Patient's prednisone can be weaned over the next 12 to 14 days. No acute infiltrates were noted on the chest x-ray initially. Patient has not spiked any fevers to indicate superinfection. Patient does likely have advanced lung disease and will have a protracted course. 2. Probable secondary pulmonary hypertension/polycythemia Patient has a hemoglobin of over 16. Clinical suspicion given advanced lung disease is that patient is likely chronically hypoxic at home. Patient should have a walking oximetry prior to discharge. High clinical suspicion that supplemental oxygen will be required, at least with exertion. Echocardiogram has been ordered. Await results. Cardiology has been consulted. Control of hypoxemia would be the first step in therapy for pulmonary hypertension. 3. Supply demand ischemia/elevated troponin Clinical suspicion for elevated troponin secondary to severe hypoxic state on presentation. Telemetry is not suggestive of acute ongoing ischemic insult. Appreciate cardiology input. Patient does have risk factors for coronary artery disease including smoking and hypertension. 4. Poor compliance/CODE STATUS Complicates care, management, recovery and prognosis. Stressed to the patient the importance of complying with recommendations to avoid future complications. Patient has given conflicting reports about CODE STATUS to different providers. Patient is currently a full code Code Visit Inpatient E&M: 03087 Subs Hosp L2
[2019-06-21] MEDS: Sertraline 50 MG Tablet 25 MG PO (10:35)
[2019-06-21] MEDS: Lisinopril 10 MG Tablet PO (10:36)
[2019-06-21] MEDS: predniSONE 20 MG Tablet 40 MG PO (10:36)
[2019-06-21 12:05] LABS: Bedside Glucose 105 mg/dL (70-110)
--- NOTE | 2019-06-21 14:39 | PCM.PN.HOSP ---
Reason for Visit: Patient seen and examined. She still remains acutely short of breath and was on BiPAP at time of review. When she tried taking BiPAP off, she got very short of breath. She denies any chest pain or palpitations, dizziness, diarrhea or vomiting. Review of systems otherwise negative. Vitals/I&O's: Vital Signs Temp Pulse Resp BP Pulse Ox 97.2 F L 108 H 20 H 128/59 H 94 06/21/19 10:32 06/21/19 11:03 06/21/19 11:03 06/21/19 10:32 06/21/19 10:32 Oxygen Flow Rate (L/min) [ 6 AMBULATION with Oxygen] Oxygen Flow Rate (L/min) 3 Oxygen Delivery Method Nasal Cannula Weight: 147 lb 0.773 oz Body Mass Index (BMI) 23.0 Intake and Output for Last 24 Hours 06/19/19 06/20/19 06/21/19 23:59 23:59 23:59 Intake Total 720 / 720 1820 / 1820 360 / 360 Output Total 450 / 450 Balance 720 / 720 1370 / 1370 360 / 360 General: Alert, Oriented x3, Cooperative, No apparent distress HEENT: Atraumatic, PERRLA, EOMI, Normocephalic Oral: Dry Mucosa Neck: Supple, No JVD, Negative Carotid Bruits Lungs: - - decreased breath sounds in all lung bass bilaterally; no wheezes or crackles. on BIPAP. Cardiovascular: Regular rate, Regular Rhythm, Normal S1, Normal S2, No murmurs Abdomen: Bowel Sounds Present, Soft, Non Tender Extremities: No clubbing, No cyanosis, No edema, Capillary Refill Less than 3 Seconds Skin: No rashes, No breakdown Musculoskeletal: No Tenderness to Palpation of Joints or Extremities Lymphatic: No Cervical, Supraclavicular, or Inguinal Adenopathy Neurological: Cranial nerves II-XII grossly intact Psych/Mental Status: Normal Affect, Appropriate, Alert and oriented to time, place, person, mood and affect Laboratory Results 06/20/19 16:43: POC Glucose 167 H 06/20/19 21:12: POC Glucose 209 H 06/21/19 06:37: POC Glucose 105 06/21/19 09:34: B-Natriuretic Peptide Pending 06/21/19 11:44: POC Glucose 105 Current Medications Acetaminophen (Tylenol) 650 mg PO Q6H PRN PRN PRN Reason: Pain Score 1-3/Temp > 100.7 F Albuterol Sulfate (Ventolin Aerosols) 2.5 mg INHALATION Q2H PRN PRN PRN Reason: SOB/Wheezing Last Admin: 06/19/19 04:06 Dose: 2.5 mg Documented by: Albuterol/Ipratropium (Duoneb) 3 ml INHALATION Q4H.RT [facility] Last Admin: 06/21/19 11:03 Dose: 3 ml Documented by: Atorvastatin Calcium (Lipitor) 40 mg PO QHS [facility] Last Admin: 06/20/19 21:13 Dose: Not Given Documented by: Azithromycin (Zithromax) 500 mg PO Q24@2200 [facility] Last Admin: 06/20/19 21:13 Dose: 500 mg Documented by: Dextrose (D50w Syringe) 0 gm IV X1 PRN; Protocol PRN Reason: Hypoglycemia Enoxaparin Sodium (Lovenox) 40 mg SC DAILY@1000 [facility] Last Admin: 06/21/19 10:36 Dose: Not Given Documented by: Ergocalciferol (Vitamin D) 50,000 unit PO Leigh [facility] Glucagon () 1 mg IM .X1 PRN PRN Reason: Hypoglycemia Sodium Chloride () 250 mls @ 15 mls/hr IV .[id number] PRN PRN Reason: Saline Flush Last Infusion: 06/20/19 07:38 Dose: 0 mls/hr Documented by: Insulin Human Lispro (Humalog Kwikpen (Bkc)) 0 unit SC ACHS [facility]; Protocol Last Admin: 06/21/19 11:55 Dose: Not Given Documented by: Lisinopril (Zestril) 10 mg PO DAILY [facility] Last Admin: 06/21/19 10:36 Dose: 10 mg Documented by: Melatonin (Melatonin) 3 mg PO QHS PRN PRN PRN Reason: INSOMNIA Last Admin: 06/20/19 21:13 Dose: 3 mg Documented by: Nicotine (Nicoderm Cq (Pbkc)) 21 mg TRANSDERM. DAILY [facility] Last Admin: 06/21/19 10:35 Dose: 21 mg Documented by: Ondansetron HCl (Zofran) 4 mg IV Q8H PRN PRN PRN Reason: NAUSEA/VOMITING Prednisone () 40 mg PO DAILY@0800 [facility] Last Admin: 06/21/19 10:36 Dose: 40 mg Documented by: Sertraline HCl (Zoloft) 25 mg PO DAILY [facility] Last Admin: 06/21/19 10:35 Dose: 25 mg Documented by: Sodium Chloride () 10 - 40 ml IV UD PRN PRN Reason: SALINE FLUSH Last Admin: 06/20/19 14:09 Dose: 20 ml Documented by: STROKE Vital Signs/Narrative: Vital Signs Pulse Resp 06/21/19 11:03 108 H 20 H Medical Necessity - Tobacco Use Smoking Status: Current every day smoker Tobacco Use: Cigarettes Assessment/Plan All Active Problems COPD exacerbation (Acute) 1. Acute hypoxic and hypercapnic respiratory failure due to COPD exacerbation still short of breath. on BIPAP and got short of breath when she came off BIPAP briefly during review has very severe COPD per spirometry. pulmonology on board on breathing treatments with duonebs on PO prednisone 40mg daily on azithromycin 2. Elevated troponins troponins were elevated on admission. this was thought to be due to demand ischemia from hypoxia. However she has risk factors for CAD such as age, hypertension extensive smoking history. 2D echo: EF of 45% with stage I diastolic dysfunction and normal left ventricular systolic function though at the lower limits of normal. No regional wall motion abnormalities noted. PA pressure is 26 mmHg BNP ordered and is pending. Allergy consulted. 3. Severe COPD exacerbation: As under 1. 4. Hyperlipidemia: On statin. 5. Nicotine dependence: Counseled to quit. 6. Polycythemia: Likely secondary to COPD. Hemoglobin is around 16. Stable. Will monitor. 7. Hypertension: On lisinopril Prophylaxis: Lovenox Code Visit Inpatient E&M: [id number] Subs Hosp L2
--- NOTE | 2019-06-21 14:41 | CASEMGMT ---
Pt states that she would like [employer] for home oxygen at discharge, if she qualifies. Green sheet on chart for home oxygen with home oxygen set up instructions, facesheet, and order form that needs to be filled in. Lynn SEYMOUR CM
[2019-06-21 16:33] LABS: BNP,B-Type NATRIURETIC PEPTIDE 56.5 pg/mL (0-100)
[2019-06-21 17:26] LABS: Bedside Glucose 140 mg/dL (70-110)
[2019-06-21] MEDS: Azithromycin 250 MG Tablet 500 MG PO (22:06)
[2019-06-21 22:26] LABS: Bedside Glucose 120 mg/dL (70-110)
--- NOTE | 2019-06-21 23:15 | CPS ---
pt did not want to put bipap on at this time-pt states can put on herself when ready
[2019-06-22] VITALS (12 sets, daily range): BP systolic 112–133; BP diastolic 54–68; PULSE 81–118; RESP 12–23; TEMP 36.7–36.8; O2SAT 88–99
[2019-06-22 06:24] LABS: Absolute Lymphocyte Count 2.26 X10^3/uL (0.83-4.51); Basophil# 0.01 X10^3/uL; Basophil% 0.1 % (0-1); Eosinophil# 0.08 X10^3/uL; Eosinophils% 0.9 % (0-5); Hemoglobin 14.9 g/dL (12.0-15.0); Lymphocyte # 2.26 X10^3/ul (4.0); Lymphocyte % 24.1 % (19-41); Mean Corp Hgb Conc 31.7 g/dL (32-36); Mean Corpuscular Hgb 28.8 pg (27.0-32.0); Mean Corpuscular Volume 90.9 fL (81-99); Monocyte# 1.02 X10^3/uL; Monocyte% 10.9 % (0-10); NRBC Flagged by Analyzer 0 % (0-5); Neutrophil # 5.97 X10^3/uL (2.7-7.7); Neutrophil % 63.7 % (47-70); Platelet Count 229 K/mm3 (150-450); RBC Distribution Width CV 12.9 % (11.6-14.6); RBC Distribution Width SD 43.1 fl (35.1-43.9); Red Blood Count 5.17 M/mm3 (4.2-5.4); White Blood Count 9.4 K/mm3 (4.4-11.0)
[2019-06-22 06:43] LABS: Anion Gap 5 (5-15); BUN 25 mg/dL (7-18); Calcium,Total 8.2 mg/dL (8.5-10.1); Chloride 100 mmol/L (98-107); EST Glomerular Filtration Rate 91 mL/min (>60); Est Glom Filt Rate - Afr Amer 111 mL/min (>60); Estimated Creatinine Clearance 83.11 ml/min; Glucose 89 mg/dL (74-106); Sodium Level 138 mmol/L (136-145)
[2019-06-22 06:56] LABS: Bedside Glucose 91 mg/dL (70-110)
[2019-06-22] MEDS: Ipratropium/Albuterol Sulfate 3 ML AMPUL.NEB INHALATION ×2 (07:11→11:07)
--- NOTE | 2019-06-22 08:41 | PN_ITS ---
Subjective: Patient did okay overnight. Patient continues to have a nonproductive cough, but feels subjectively less short of breath compared to yesterday. Patient is still requiring nasal cannula oxygen to maintain saturations. Patient denies any current chest pain. Patient does state that she has a pulse oximeter at home to monitor oxygen saturations. Objective: Echocardiogram completed yesterday shows an EF of 45% with stage I diastolic dysfunction and elevated pulmonary artery pressure 26 mmHg. - Physical Exam Vitals/I&O's: Vital Signs Temp Pulse Resp BP Pulse Ox 36.7 C 83 22 H 133/62 H 99 06/22/19 03:55 06/22/19 07:16 06/22/19 07:11 06/22/19 03:55 06/22/19 07:11 Oxygen Flow Rate (L/min) [ 6 AMBULATION with Oxygen] Oxygen Flow Rate (L/min) 3 Oxygen Delivery Method Nasal Cannula Weight: 66.7 kg Body Mass Index (BMI) 23.0 Intake and Output for Last 24 Hours 06/20/19 06/21/19 06/22/19 23:59 23:59 23:59 Intake Total 1820 / 1820 1560 / 1560 Output Total 450 / 450 1900 / 1900 Balance 1370 / 1370 -340 / -340 General: Alert, Oriented x3, Cooperative, - - Mild conversational dyspnea secondary to cough. Appears older than stated age. HEENT: Atraumatic, PERRLA, EOMI, Normocephalic, - - Slight scleral injection. Glasses in place. Oral: Moist Mucosa, No Gingival or Mucosal Lesions/ Ulcerations Neck: Supple, No JVD, No Nodes, Trachea Midline Lungs: No rhonchi, No rales, Diminished, Wheezes - Sporadic at end exhalation, - - Significant kyphosis noted. Cardiovascular: Regular rate, Regular Rhythm, Normal S1, Normal S2, No murmurs, No rub noted, No Gallop Abdomen: Bowel Sounds Present, Soft, Non Tender, Non-Distended Extremities: No cyanosis, No edema, Capillary Refill Less than 3 Seconds, Clubbing Skin: No rashes, No breakdown Musculoskeletal: No Tenderness to Palpation of Joints or Extremities Lymphatic: No Cervical, Supraclavicular, or Inguinal Adenopathy Neurological: Cranial nerves II-XII grossly intact, Neuro grossly intact, Motor Exam 5/5 strength throughout Psych/Mental Status: Alert and oriented to time, place, person, mood and affect Laboratory Results 06/21/19 09:34: B-Natriuretic Peptide 56.5 06/21/19 11:44: POC Glucose 105 06/21/19 17:15: POC Glucose 140 H 06/21/19 22:09: POC Glucose 120 H 06/22/19 05:25: WBC 9.4, RBC 5.17, Hgb 14.9, Hct 47.0, MCV 90.9, MCH 28.8, MCHC 31.7 L, RDW Std Deviation 43.1, RDW Coeff of Sami 12.9, Plt Count 229, MPV 10.0, Immature Gran % (Auto) 0.300, Neut % (Auto) 63.7, Lymph % (Auto) 24.1, [place] % (Auto) 10.9 H, Eos % (Auto) 0.9, Baso % (Auto) 0.1, Absolute Neuts (auto) 6.0, Absolute Lymphs (auto) 2.26, Nucleated RBC % 0 06/22/19 05:25: Sodium 138, Potassium 4.0, Chloride 100, Carbon Dioxide 33.0 H, Anion Gap 5, BUN 25 H, Creatinine 0.70, Estim Creat Clear Calc 83.11, Est GFR (MDRD) Af Amer 111, Est GFR (MDRD) Non-Af 91, BUN/Creatinine Ratio 36.0 H, Gl ucose 89, Calcium 8.2 L 06/22/19 06:31: POC Glucose 91 Current Medications Acetaminophen (Tylenol) 650 mg PO Q6H PRN PRN PRN Reason: Pain Score 1-3/Temp > 100.7 F Albuterol Sulfate (Ventolin Aerosols) 2.5 mg INHALATION Q2H PRN PRN PRN Reason: SOB/Wheezing Last Admin: 06/19/19 04:06 Dose: 2.5 mg Documented by: Albuterol/Ipratropium (Duoneb) 3 ml INHALATION Q4H.RT [facility] Last Admin: 06/22/19 07:11 Dose: 3 ml Documented by: Atorvastatin Calcium (Lipitor) 40 mg PO QHS [facility] Last Admin: 06/21/19 22:07 Dose: Not Given Documented by: Azithromycin (Zithromax) 500 mg PO Q24@2200 [facility] Last Admin: 06/21/19 22:06 Dose: 500 mg Documented by: Dextrose (D50w Syringe) 0 gm IV X1 PRN; Protocol PRN Reason: Hypoglycemia Enoxaparin Sodium (Lovenox) 40 mg SC DAILY@1000 [facility] Last Admin: 06/21/19 10:36 Dose: Not Given Documented by: Ergocalciferol (Vitamin D) 50,000 unit PO Leigh [facility] Glucagon () 1 mg IM .X1 PRN PRN Reason: Hypoglycemia Sodium Chloride () 250 mls @ 15 mls/hr IV .[id number] PRN PRN Reason: Saline Flush Last Infusion: 06/20/19 07:38 Dose: 0 mls/hr Documented by: Insulin Human Lispro (Humalog Kwikpen (Bkc)) 0 unit SC ACHS [facility]; Protocol Last Admin: 06/22/19 06:40 Dose: Not Given Documented by: Lisinopril (Zestril) 10 mg PO DAILY [facility] Last Admin: 06/21/19 10:36 Dose: 10 mg Documented by: Melatonin (Melatonin) 3 mg PO QHS PRN PRN PRN Reason: INSOMNIA Last Admin: 06/20/19 21:13 Dose: 3 mg Documented by: Nicotine (Nicoderm Cq (Pbkc)) 21 mg TRANSDERM. DAILY [facility] Last Admin: 06/21/19 10:35 Dose: 21 mg Documented by: Ondansetron HCl (Zofran) 4 mg IV Q8H PRN PRN PRN Reason: NAUSEA/VOMITING Prednisone () 40 mg PO DAILY@0800 [facility] Last Admin: 06/21/19 10:36 Dose: 40 mg Documented by: Sertraline HCl (Zoloft) 25 mg PO DAILY [facility] Last Admin: 06/21/19 10:35 Dose: 25 mg Documented by: Sodium Chloride () 10 - 40 ml IV UD PRN PRN Reason: SALINE FLUSH Last Admin: 06/20/19 14:09 Dose: 20 ml Documented by: Medical Necessity - Tobacco Use Smoking Status: Current every day smoker Tobacco Use: Cigarettes Assessment/Plan All Active Problems COPD exacerbation (Acute) RECOMMENDATIONS: 1. Continue antibiotics and bronchodilators at current dosing. Wean prednisone over the next 12 to 14 days 2. Continue to encourage BiPAP compliance. Possibly evaluate for noninvasive therapy as an outpatient 3. Wean oxygen as tolerated 4. Walking oximetry prior to discharge, high clinical suspicion for home oxygen requirement 5. Follow-up with nurse practitioner 2 weeks after discharge. Okay to discharge from a pulmonary perspective IMPRESSIONS: 1. Acute COPD exacerbation Patient with advanced COPD by spirometric criteria in 2017. Patient has continued to smoke, so progression of disease would be anticipated. Patient should have a complete pulmonary function test as an outpatient for quantification clarification of lung function. High clinical risk the patient would not be able to be extubated if intubated. Will continue patient on current therapy. Patient's prednisone can be weaned over the next 12 to 14 days. No acute infiltrates were noted on the chest x-ray initially. Patient has not spiked any fevers to indicate superinfection. Patient does likely have advanced lung disease and will have a protracted course. Patient is open to using supplemental oxygen on discharge and states she has a pulse oximeter for monitoring levels. 2. Probable secondary pulmonary hypertension/polycythemia Patient has a hemoglobin of over 16. Clinical suspicion given advanced lung disease is that patient is likely chronically hypoxic at home. Patient should have a walking oximetry prior to discharge. High clinical suspicion that supplemental oxygen will be required, at least with exertion. Cardiology is following. Slightly depressed EF, but pulmonary artery pressures are actually not that bad. Clinical suspicion for normalization once hypoxia is addressed. 3. Supply demand ischemia/elevated troponin Clinical suspicion for elevated troponin secondary to severe hypoxic state on presentation. Telemetry is not suggestive of acute ongoing ischemic insult. Appreciate cardiology input. Patient does have risk factors for coronary artery disease including smoking and hypertension. Defer to cardiology, but patient may require stress testing as an outpatient. 4. Poor compliance/CODE STATUS Complicates care, management, recovery and prognosis. Stressed to the patient the importance of complying with recommendations to avoid future complications. Patient has given conflicting reports about CODE STATUS to different providers. Patient is currently a full code Code Visit Inpatient E&M: 74886 Subs Hosp L2
[2019-06-22] MEDS: predniSONE 20 MG Tablet 40 MG PO (09:46)
[2019-06-22] MEDS: Lisinopril 10 MG Tablet PO (09:46)
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
--- NOTE | 2019-06-22 10:26 | PCM.DC ---
You will use the following diet at home:: Cardiac Your food should be the consistency of: Regular Your liquids should be the consistency of: Regular/Thin Discharge Activity: Return to Normal Activity Weight Bearing Status: Weight bearing as tolerated Call your doctor if you observe: Shortness of breath, Swelling in the ankles, Chest pain, Increased palpitations (irregular heartbeat) Instructions: What Is COPD?, Treatments for COPD Additional Instructions: use oxygen by nasal canula for shortness of breath. Allergies/Adverse Reactions: Allergies codeine Allergy (Verified 06/17/19 17:29) Rash ibuprofen Allergy (Verified 06/17/19 17:29) Rash Medications to take at Discharge Acetaminophen [Tylenol] 1,000 mg PO DAILY PRN PRN 10/04/18 Albuterol Sulfate [Ventolin Hfa] 1 - 2 puff PO PRN PRN 10/04/18 Lisinopril [Zestril] 10 mg PO DAILY 10/04/18 Tiotropium [place] [Spiriva Respimat] 1 puff INHALATION DAILY 10/04/18 Albuterol Aerosols [Ventolin Aerosols] 2.5 mg INHALATION Q6HWA.RT #120 vial.neb. 10/05/18 Nicotine [Nicoderm Cq] 21 mg TRANSDERM. DAILY patch 10/05/18 Cholecalciferol (Vitamin D3) [D3-50] 50,000 unit PO DACOSTA 06/17/19 Atorvastatin Calcium [Lipitor] 40 mg PO QHS #30 tab MDD sd 06/22/19 MethylPREDNISolone DosePak [Medrol DosePak] 4 mg PO UD #1 box 06/22/19 The following prescriptions were given: Atorvastatin Calcium [Lipitor] 40 mg PO QHS #30 tab MDD sd Transmission Status: Pending to [id number] MethylPREDNISolone DosePak [Medrol DosePak] 4 mg PO UD #1 box Transmission Status: Pending to [id number] Primary Care Physician: Isabel West [Primary Care Provider] - Please follow up with your Primary Care Physician in: one week Test Results: Test results from this visit will be discussed in further detail at your follow-up appointment, if applicable. Please Follow Up With: Scottie Enamorado MD When: 1-2 weeks Please Follow Up With: Tonny Hinojosa MD When: 2-4 weeks Proposed Discharge Date: 06/22/19
--- NOTE | 2019-06-22 10:27 | PCM.DC.SUM ---
Discharge Date and Diagnosis Date of Admission: 06/17/19 Date of Discharge: 06/22/19 - Primary Discharge Diagnosis acute hypoxic respiratory failure due to COPD exacerbation COPD exacerbation elevated troponins - Secondary Discharge Diagnosis Chronic Problems Cigarette smoker (Chronic) Hypertension (Chronic) Stage 4 very severe COPD by GOLD classification (Chronic) Hospital Course and Treatment Operations: None Procedures: None Summary of Care Provided: The patient is a 58 year old F with past medical history of stage IV COPD, hypertension and nicotine abuse. Was admitted through the ED on 06/17/2019 with a 4-day history of progressively worsening shortness of breath. She had been started on prednisone by her PCP. On the day of admission, his saturation was 65% on room air which was referred to the ED. In the ED, she was found to be tripoding. Was admitted and managed for acute hypoxic respiratory failure due to COPD exacerbation. Patient refused to be initiated on BiPAP. Chest x-ray showed COPD and EKG showed no acute ST changes. She was started on albuterol and Solu-Medrol as well as azithromycin and she was put on oxygen to titrate for saturation more than 90. Rapid response was called due to patient's persistent tripoding and blood gas done showed a PCO2 of 69. Patient refused BiPAP and also refused to be intubated. Patient eventually agreed to use BiPAP with manual manipulation. Pulmonology was consulted. Patient was also noted to have secondary polycythemia with hemoglobin of 16 and this was likely thought to be due to advanced lung disease. Elevated troponins were thought to be due to demand ischemia from hypoxia. However in light of her risk factors such as age, hypertension extensive with a cane history, 2D echo was ordered which showed EF of 45% with normal left ventricular function and no regional motion abnormalities. BNP was only 56. Cardiology was consulted and per cardiology recommendation, patient was follow-up on outpatient basis for further work-up as needed. Patient gradually improved and was discharged home on 06/22/2019. Walking pulse ox showed that patient qualify for home oxygen as his saturation was 88% on room air at rest. With ambulation, patient required 6 L of oxygen to maintain saturation at 90%. She was therefore discharged on 6 L of oxygen. She is to follow-up with her primary care doctor, pulmonology and cardiology. Patient was also strongly counseled to quit smoking. Patient seen and examined prior to discharge. She felt much better and shortness of breath had improved. Review of systems was otherwise negative. Labs and vitals reviewed. Home medications reviewed and reconciled. o/e: Vital Signs Height 5 ft 7 in Weight: 147 lb 0.773 oz Weight in Pounds 147.0 lbs Pulse Ox [AMBULATION with 93 Oxygen] Pulse Ox [At REST on Room Air] 88 Pulse Ox 98 Temperature 98.2 F Pulse Rate 112 Respiratory Rate 18 Blood Pressure [BP] 129/84 Blood Pressure 112/54 Blood Pressure Position [BP] Sitting Blood Pressure Position Sitting [] General: Alert, Oriented x3, Cooperative, No apparent distress HEENT: Atraumatic, PERRLA, EOMI, Normocephalic Oral: Dry Mucosa Neck: Supple, No JVD, Negative Carotid Bruits Lungs: - - decreased breath sounds in all lung bass bilaterally; no wheezes or crackles. on 3L of oxygen by nasal canula Cardiovascular: Regular rate, Regular Rhythm, Normal S1, Normal S2, No murmurs Abdomen: Bowel Sounds Present, Soft, Non Tender Extremities: No clubbing, No cyanosis, No edema, Capillary Refill Less than 3 Seconds Skin: No rashes, No breakdown Musculoskeletal: No Tenderness to Palpation of Joints or Extremities Lymphatic: No Cervical, Supraclavicular, or Inguinal Adenopathy Neurological: Cranial nerves II-XII grossly intact Psych/Mental Status: Normal Affect, Appropriate, Alert and oriented to time, place, person, mood and affect Plan as above. She was also discharged with a Medrol Dosepak. - Physical Exam Vitals/I&O's: Vital Signs Temp Pulse Resp BP Pulse Ox 98.2 F 89 17 112/54 L 98 06/22/19 09:40 06/22/19 09:40 06/22/19 09:40 06/22/19 09:40 06/22/19 09:40 Oxygen Flow Rate (L/min) [ 6 AMBULATION with Oxygen] Oxygen Flow Rate (L/min) 3 Oxygen Delivery Method Nasal Cannula Weight: 147 lb 0.773 oz Body Mass Index (BMI) 23.0 Intake and Output for Last 24 Hours 06/20/19 06/21/19 06/22/19 23:59 23:59 23:59 Intake Total 1820 / 1820 1560 / 1560 Output Total 450 / 450 1900 / 1900 Balance 1370 / 1370 -340 / -340 Laboratory Results 06/21/19 09:34: B-Natriuretic Peptide 56.5 06/21/19 11:44: POC Glucose 105 06/21/19 17:15: POC Glucose 140 H 06/21/19 22:09: POC Glucose 120 H 06/22/19 05:25: WBC 9.4, RBC 5.17, Hgb 14.9, Hct 47.0, MCV 90.9, MCH 28.8, MCHC 31.7 L, RDW Std Deviation 43.1, RDW Coeff of Sami 12.9, Plt Count 229, MPV 10.0, Immature Gran % (Auto) 0.300, Neut % (Auto) 63.7, Lymph % (Auto) 24.1, [place] % (Auto) 10.9 H, Eos % (Auto) 0.9, Baso % (Auto) 0.1, Absolute Neuts (auto) 6.0, Absolute Lymphs (auto) 2.26, Nucleated RBC % 0 06/22/19 05:25: Sodium 138, Potassium 4.0, Chloride 100, Carbon Dioxide 33.0 H, Anion Gap 5, BUN 25 H, Creatinine 0.70, Estim Creat Clear Calc 83.11, Est GFR (MDRD) Af Amer 111, Est GFR (MDRD) Non-Af 91, BUN/Creatinine Ratio 36.0 H, Glucose 89, Calcium 8.2 L 06/22/19 06:31: POC Glucose 91 Current Medications Acetaminophen (Tylenol) 650 mg PO Q6H PRN PRN PRN Reason: Pain Score 1-3/Temp > 100.7 F Albuterol Sulfate (Ventolin Aerosols) 2.5 mg INHALATION Q2H PRN PRN PRN Reason: SOB/Wheezing Last Admin: 06/19/19 04:06 Dose: 2.5 mg Documented by: Albuterol/Ipratropium (Duoneb) 3 ml INHALATION Q4H.RT [facility] Last Admin: 06/22/19 07:11 Dose: 3 ml Documented by: Atorvastatin Calcium (Lipitor) 40 mg PO QHS [facility] Last Admin: 06/21/19 22:07 Dose: Not Given Documented by: Azithromycin (Zithromax) 500 mg PO Q24@2200 [facility] Last Admin: 06/21/19 22:06 Dose: 500 mg Documented by: Dextrose (D50w Syringe) 0 gm IV X1 PRN; Protocol PRN Reason: Hypoglycemia Enoxaparin Sodium (Lovenox) 40 mg SC DAILY@1000 [facility] Last Admin: 06/22/19 09:39 Dose: Not Given Documented by: Ergocalciferol (Vitamin D) 50,000 unit PO [place] [facility] Glucagon () 1 mg IM .X1 PRN PRN Reason: Hypoglycemia Sodium Chloride () 250 mls @ 15 mls/hr IV .[id number] PRN PRN Reason: Saline Flush Last Infusion: 06/20/19 07:38 Dose: 0 mls/hr Documented by: Insulin Human Lispro (Humalog Kwikpen (Bkc)) 0 unit SC ACHS [facility]; Protocol Last Admin: 06/22/19 06:40 Dose: Not Given Documented by: Lisinopril (Zestril) 10 mg PO DAILY [facility] Last Admin: 06/22/19 09:46 Dose: 10 mg Documented by: Melatonin (Melatonin) 3 mg PO QHS PRN PRN PRN Reason: INSOMNIA Last Admin: 06/20/19 21:13 Dose: 3 mg Documented by: Nicotine (Nicoderm Cq (Pbkc)) 21 mg TRANSDERM. DAILY [facility] Last Admin: 06/22/19 09:39 Dose: Not Given Documented by: Ondansetron HCl (Zofran) 4 mg IV Q8H PRN PRN PRN Reason: NAUSEA/VOMITING Prednisone () 40 mg PO DAILY@0800 [facility] Last Admin: 06/22/19 09:46 Dose: 40 mg Documented by: Sertraline HCl (Zoloft) 25 mg PO DAILY [facility] Last Admin: 06/22/19 09:40 Dose: Not Given Documented by: Sodium Chloride () 10 - 40 ml IV UD PRN PRN Reason: SALINE FLUSH Last Admin: 06/20/19 14:09 Dose: 20 ml Documented by: Discharge Diet: Low fat/ Low Cholesterol Discharge Activity: Return to Normal Activity Weight Bearing Status: Weight bearing as tolerated Call your doctor if you observe: Shortness of breath, Swelling in the ankles, Chest pain, Increased palpitations (irregular heartbeat) Home Medications: Medications to take at Discharge Acetaminophen [Tylenol] 1,000 mg PO DAILY PRN PRN 10/04/18 Albuterol Sulfate [Ventolin Hfa] 1 - 2 puff PO PRN PRN 10/04/18 Lisinopril [Zestril] 10 mg PO DAILY 10/04/18 Tiotropium [place] [Spiriva Respimat] 1 puff INHALATION DAILY 10/04/18 Albuterol Aerosols [Ventolin Aerosols] 2.5 mg INHALATION Q6HWA.RT #120 vial.neb. 10/05/18 Nicotine [Nicoderm Cq] 21 mg TRANSDERM. DAILY patch 10/05/18 Cholecalciferol (Vitamin D3) [D3-50] 50,000 unit PO DACOSTA 06/17/19 Atorvastatin Calcium [Lipitor] 40 mg PO QHS #30 tab MDD sd 06/22/19 MethylPREDNISolone DosePak [Medrol DosePak] 4 mg PO UD #1 box 06/22/19 Following Prescrptions Were Given to Patient: Atorvastatin Calcium [Lipitor] 40 mg PO QHS #30 tab MDD sd Transmission Status: Received by [id number] MethylPREDNISolone DosePak [Medrol DosePak] 4 mg PO UD #1 box Transmission Status: Received by [id number] Primary Care Physician: Isabel West [Primary Care Provider] - Please follow up with your Primary Care Physician in: one week Please Follow Up With: Scottie Enamorado MD When: 1-2 weeks Please Follow Up With: Tonny Hinojosa MD When: 2-4 weeks Patient Instructions: What Is COPD?, Treatments for COPD Disposition: Home Minutes spent on discharge:: 45 Patient Condition:: Stable Medical Necessity - Tobacco Use Smoking Status: Current every day smoker Tobacco Use: Cigarettes Meaningful Use Info Meaningful Use Diagnoses (Choose all that apply): None applicable Code Visit Inpatient E&M: 03323 Disch Hosp
[2019-06-22 12:36] LABS: Bedside Glucose 114 mg/dL (70-110)
--- NOTE | 2019-06-22 12:41 | NURSING ---
Pulse ox dropped to 88% with oxygen on at 3 L NC during walking pulse ox check. Increased oxygen to 6L NC. Pulse ox increased to 93%. Mild shortness of breath with exertion noted. Recovers quickly at rest.
--- NOTE | 2019-06-22 13:40 | NURSING ---
Home oxygen qualifications faxed to [facility]. Called [facility] for home oxygen set up and portable tank to be delivered to the hospital.
--- NOTE | 2019-06-23 12:46 | EKG12_ITS ---
Test Reason : CP ADMISSION Blood Pressure : / mmHG Vent. Rate : 072 BPM Atrial Rate : 072 BPM P-R Int : 134 ms QRS Dur : 084 ms QT Int : 382 ms P-R-T Axes : 059 054 055 degrees QTc Int : 418 ms Normal sinus rhythm Normal ECG When compared with ECG of 17-JUN-2019 17:59, Premature atrial complexes are no longer Present Vent. rate has decreased BY 40 BPM Nonspecific T wave abnormality no longer evident in Inferior leads Nonspecific T wave abnormality no longer evident in Anterolateral leads Confirmed by RADHA BERRY, WESLEY ([id number]), associate entertainment editor SIERRA VEGA ([id number]) on 06/26/2019 2:05:50 PM Referred By: Nataliya MANZANARES Confirmed By:WESLEY GARCIA MD
--- NOTE | 2019-06-24 15:15 | CASEMGMT ---
[facility] DC PHONE CALL DC DATE: 06.22.19 DC Disposition: Home with home oxygen Diagnosis on Discharge: COPD exacerbation LACE/STRATA: 06/26 Attempted call to home phone. no answer. Scarlet CHUNG RN ACM
--- NOTE | 2019-06-26 10:31 | CCN.REFER ---
Multiple calls to the home w/ voicemails left. No returned calls to [facility] staff since 06/19/19.
== END 2019-06-22 15:22 | disposition home or self-care (01) | DRG 189 ==
LOC: ED 17:46 → PCU 20:15
PROVIDERS: Internal Medicine; Internal Medicine Cardiovascular Disease; Internal Medicine Critical Care Medicine; Admitting Provider Hospitalist; Emergency Provider Emergency Medicine; Referring Provider Nurse Practitioner Family; Visit Provider Student in an Organized Health Care Education/Training Program
DX: J96.01 Acute respiratory failure with hypoxia (principal); J44.1 Chronic obstructive pulmonary disease with (acute) exacerbation; I24.8 Other forms of acute ischemic heart disease; E87.1 Hypo-osmolality and hyponatremia; F17.210 Nicotine dependence, cigarettes, uncomplicated; I10 Essential (primary) hypertension; D75.1 Secondary polycythemia; E78.5 Hyperlipidemia, unspecified
CPT/HCPCS: 36415; 36600; 71045; 80048; 80061; 80076; 82803; 82962; 83735; 83880; 84100; 84484; 85025; 93005; 93306; 94002; 94003; 94640; 94660; 97161; 97165; 99251; 99285; J7050; Q9957; A4216; G0463

== ENCOUNTER → 2019-07-30 08:33 | Outpatient (CLI) | payer MEDICAID, SELFPAY ==
[2019-07-10 08:39] VITALS: BMI 23.0
[2019-07-30 08:30] VITALS: PULSE 102; PULSE 110; PULSE 115; PULSE 117; PULSE 120; PULSE 121; PULSE 99; O2SAT 85; O2SAT 88; O2SAT 90; O2SAT 91; O2SAT 92; O2SAT 94; O2SAT 95; O2SAT 96
--- NOTE | 2019-07-30 09:07 | CPS ---
Patient arrived on 3L of home O2. Patient SpO2 on RA wss 95%. Test started on RA but SpO2 dropped to 85%. 2l applied. Then SpO2 dropped to 88%. O2 increased to 3L and rest of testing done on 3L. Sourav DIRECTOR DIVERSITY
--- NOTE | 2019-07-30 17:11 | WT_ITS ---
PSN 6 Minute Walk Test - 6 Minute Walk Test 6 Minute Walk Test: 6 Minute Walk Test PSN:6-Minute Walk Test Start: 07/30/19 09:05 Freq: Status: Active Protocol: [id number].6MINW Document 07/30/19 08:30 JO (Rec: 07/30/19 09:09 JLA [id number]) 6 Minute Walk Test Date Performed 07/30/19 Time Performed 08:30 Height 5 ft 7 in Weight: 67.132 kg Weight in Pounds 148.[address]: Scottie Enamorado Assistive device used: None Pre-test Oxygen Delivery Method Room Air Pulse Ox (%) 95 Pulse Rate (60-100 beats/min) 99 Dyspnea Maddie Scale (0-10) 1 Exertion Maddie Scale (6-20) 6 1st minute Oxygen Delivery Method Room Air Pulse Ox (%) 92 Pulse Rate (60-100 beats/min) 110 H 2nd minute Oxygen Delivery Method Room Air Pulse Ox (%) 85 Pulse Rate (60-100 beats/min) 115 H Dyspnea Maddie Scale (0-10) 2 Exertion Maddie Scale (6-20) 11 3rd minute Oxygen Flow Rate (L/min) (L/min) 2 Oxygen Delivery Method Nasal Cannula Pulse Ox (%) 90 Pulse Rate (60-100 beats/min) 117 H 4th minute Oxygen Flow Rate (L/min) (L/min) 2 Oxygen Delivery Method Nasal Cannula Pulse Ox (%) 88 Pulse Rate (60-100 beats/min) 120 H 5th minute Oxygen Flow Rate (L/min) (L/min) 3 Oxygen Delivery Method Nasal Cannula Pulse Ox (%) 94 Pulse Rate (60-100 beats/min) 117 H 6th minute Oxygen Flow Rate (L/min) (L/min) 3 Oxygen Delivery Method Nasal Cannula Pulse Ox (%) 91 Pulse Rate (60-100 beats/min) 121 H Dyspnea Maddie Scale (0-10) 2 Exertion Maddie Scale (6-20) 11 Post-test Oxygen Flow Rate (L/min) (L/min) 3 Oxygen Delivery Method Nasal Cannula Pulse Ox (%) 96 Pulse Rate (60-100 beats/min) 102 H Full Laps Walked 13 Partial Lap, Number of Tiles Walked 0 Total Distance Walked (ft) 767 07/30/19 09:07 Cardiopulmonary Services by Mirta Burleson Patient arrived on 3L of home O2. Patient SpO2 on RA wss 95%. Test started on RA but SpO2 dropped to 85%. 2l applied. Then SpO2 dropped to 88%. O2 increased to 3L and rest of testing done on 3L. Sourav CRM MARKETING SPECIALIST Initialized on 07/30/19 09:07 - END OF NOTE - Interpretation Interpretation: The patient was noted to be 95% on room air at rest. Unfortunately, patient did desaturate to 85% in the second minute requiring 2 L nasal cannula. Patient did require 3 L nasal cannula to maintain appropriate saturations throughout testing. Patient was noted to have a reflexive tachycardia with a peak heart rate of 121 bpm. In total, the patient was able to travel 767 feet over the course of 6 minutes. These findings are consistent with a respiratory limitation exercise tolerance. - Recommendations Recommendations: The patient requires no supplemental oxygen at rest, but should be using 3 L nasal cannula with any exertion.
== END ==
PROVIDERS: Referring Provider Nurse Practitioner Acute Care; Visit Provider Nurse Practitioner Acute Care
DX: J44.9 Chronic obstructive pulmonary disease, unspecified (principal)
CPT/HCPCS: 94618

== ENCOUNTER → 2019-08-13 07:09 | Outpatient (CLI) | payer MEDICAID, SELFPAY ==
[2019-07-10 08:39] VITALS: BMI 23.0
--- NOTE | 2019-08-13 16:07 | PFTCOMP_ITS ---
COMPLETE PULMONARY FUNCTION TEST INTERPRETATION Brief HPI: Patient is a 58 year old female, currently under the care of myself, who presents to [facility] for complete pulmonary function tests secondary to diagnosis of COPD. Respiratory therapist reports good effort and reproducible results. Interpretation: Forced expiration spirometry shows a very severe large airways obstructive ventilatory defect with an FEV1 of 25% predicted. There is no significant bronchodilator response by strict ATS criteria. Spirograms are of good quality and plateau slowly, indicating slowly emptying areas of the lungs. The respiratory flow volume loop shows decreased expiratory flow rates at all lung volumes consistent with airway obstruction. Lung volumes by body plethysmography show an elevated total lung capacity at 8.7 L, 155% predicted. FRC and RV are elevated out of proportion. Lung volume measurements are consistent with hyperinflation and air-trapping. Diffusion capacity by carbon monoxide is decreased at 29% predicted. The airway resistance is elevated. Compared to previous pulmonary function tests from 01/03/2017, there is been a significant reduction in FVC and FEV1 by 27% and 33% respectively. Impression: Irreversible very severe large airways obstructive ventilatory defect with a symmetric reduction in diffusion capacity, resulting in air trapping with hyperinflation, and significant worsening compared to previous testing.
== END ==
PROVIDERS: Referring Provider Nurse Practitioner Acute Care; Visit Provider Nurse Practitioner Acute Care
DX: J44.9 Chronic obstructive pulmonary disease, unspecified (principal)
CPT/HCPCS: 94060; 94726; 94729

== ENCOUNTER → 2020-08-13 08:16 | Outpatient (CLI) | payer MEDICAID, SELFPAY ==
[2020-04-01 07:49] VITALS: BMI 23.1
--- NOTE | 2020-08-13 13:33 | PFTCOMP_ITS ---
COMPLETE PULMONARY FUNCTION TEST INTERPRETATION Brief HPI: Patient is a 59 year old female, currently under the care of myself, who presents to [facility] for complete pulmonary function tests secondary to diagnosis of COPD. Respiratory therapist reports good effort and reproducible results. Interpretation: Forced expiration spirometry shows a very severe large airways obstructive ventilatory defect with an FEV1 of 22% predicted. There is a significant bronchodilator response in FVC by strict ATS criteria. Spirograms are of good quality and plateau slowly, indicating slowly emptying areas of the lungs. The respiratory flow volume loop shows decreased expiratory flow rates at all lung volumes consistent with airway obstruction. Lung volumes by body plethysmography show a decreased total lung capacity at 4.31 L, 77% predicted. FRC and RV are elevated out of proportion. Lung volume measurements are consistent with air-trapping. Diffusion capacity by carbon monoxide is decreased at 29% predicted. The airway resistance is elevated. Compared to previous pulmonary function tests from 08/13/2019, there is been a significant decrease in FVC and TLC by 21% and 50% respectively. Impression: Partial reversible very severe mixed ventilatory defect with some improvement in air trapping compared to previous study.
== END ==
PROVIDERS: Referring Provider Internal Medicine Critical Care Medicine; Visit Provider Internal Medicine Critical Care Medicine
DX: J96.11 Chronic respiratory failure with hypoxia (principal); J44.9 Chronic obstructive pulmonary disease, unspecified
CPT/HCPCS: 94060; 94726; 94729

== ENCOUNTER 2022-05-28 21:37 | Inpatient (IN) | payer MEDICARE, MEDICAID, SELFPAY ==
[2022-05-28] VITALS (9 sets, daily range): BP systolic 101–188; BP diastolic 53–95; PULSE 74–134; RESP 12–26; TEMP 36.3–36.9; O2SAT 94–100; BMI 18.5
--- NOTE | 2022-05-28 21:45 | EKG12_ITS ---
Test Reason : SOB Blood Pressure : / mmHG Vent. Rate : 109 BPM Atrial Rate : 109 BPM P-R Int : 152 ms QRS Dur : 096 ms QT Int : 348 ms P-R-T Axes : 086 067 090 degrees QTc Int : 468 ms Sinus tachycardia with occasional Premature ventricular complexes Biatrial enlargement Nonspecific T wave abnormality Abnormal ECG Confirmed by RADHA BERRY, WESLEY ([id number]), video editor ZUNILDA BLANCAS ([id number]) on 05/30/2022 12:56:59 PM Referred By: CYNTHIA Confirmed By:WESLEY GARCIA MD
--- NOTE | 2022-05-28 21:46 | EX.ED.DYSGE1 ---
HPI History of Present Illness Chief Complaint: Unresponsive Informant: family Narrative Narrative: Patient is a 61-year-old female with severe COPD on 5 to 6 L at baseline as well as NSTEMI nonischemic cardiomyopathy, hypertension hyperlipidemia presenting for altered mental status. Patient became obtunded about 15 minutes prior to arrival. Her significant other states that she got worked up after arguing with her daughter. She got really sweaty and when this happened he switches her from her concentrator to her tank oxygen because he gave her more oxygen. She did not perk up and became less responsive so he drove her immediately to the ER. Patient is a DNR CCA with no intubation. He states that she does not ever want to be intubated but she has turned around with BiPAP before. No other complaints at this time. Patient follows with Dr. Enamorado, pulmonology. [facility] Medical History (Updated 05/28/22 @ 23:[address] Roselyn Osorio, DO) Chronic respiratory failure with hypoxia Essential (primary) hypertension History of non-ST elevation myocardial infarction (NSTEMI) (06/21/19) Hyperlipidemia Nicotine dependence Non-ischemic cardiomyopathy DONNA (obstructive sleep apnea) Stage 4 very severe COPD by GOLD classification Home Medications acetaminophen 500 mg tablet 1,000 mg PO DAILY PRN PRN Pain Or Fever 10/04/18 [History Last Taken 06/13/19] lisinopril 10 mg tablet 10 mg PO DAILY BP 10/04/18 [History Last Taken 06/14/19] cholecalciferol (vitamin D3) 1,250 mcg (50,000 unit) capsule 50,000 unit PO DACOSTA supplement 06/17/19 [History Last Taken 06/16/19] elderberry fruit 200 mg capsule mg PO 12/04/19 [History Last Taken Unknown] albuterol sulfate 2.5 mg/3 mL (0.083 %) solution for nebulization 2.5 mg (3 mL) inhalation Q6HWA.RT ##120 08/20/20 [Rx Last Taken Unknown] Nebulizer #1 ea 11/23/21 [Rx Last Taken Unknown] azelastine 205.5 mcg (0.15 %) nasal spray 1 spray intranasal BID #30 mL 11/23/21 [Rx Last Taken Unknown] wheel chair #1 ea 11/23/21 [Rx Last Taken Unknown] doxycycline hyclate 100 mg tablet 100 mg PO BID #20 tabs 03/01/22 [Rx Last Taken Unknown] nicotine 14 mg/24 hr daily transdermal patch 1 patch transdermal Q24H #28 ea 03/01/22 [Rx Last Taken Unknown] prednisone 10 mg tablet 10 mg PO DAILY #30 tabs 03/01/22 [Rx Last Taken Unknown] albuterol sulfate 90 mcg/actuation aerosol inhaler 1 - 2 puff PO PRN PRN Sob &/Or Wheezing #18 grams 03/14/22 [Rx Last Taken Unknown] tiotropium bromide 2.5 mcg/actuation mist for inhalation 1 puff inhalation DAILY COPD #4 grams 03/14/22 [Rx Last Taken Unknown] budesonide-formoterol HFA 160 mcg-4.5 mcg/actuation aerosol inhaler (Symbicort) 2 puff inhalation BID #10.2 grams 04/04/22 [Rx Last Taken Unknown] Allergy/AdvReac Type Severity Reaction Status Date / Time codeine Allergy Rash Verified 05/28/22 21:41 ibuprofen Allergy Rash Verified 05/28/22 21:41 Family History Father Lung cancer Mother Breast cancer Parkinsons disease Surgical History H/O tubal ligation Social History Smoking Status: Current every day smoker tobacco type: cigarettes ROS ROS ED Review of Systems ROS Unobtainable: due to mental status and other EXAM Physical Exam Const Vital Signs: 05/28/22 21:38 05/28/22 21:43 05/28/22 21:49 Temperature 97.3 F L Temperature Source Temporal Pulse Rate 130 H 134 H Respiratory Rate 26 H 26 H Respiratory Effort Labored Accessory Muscle Use Nasal Flaring Pursed Lip Splinting Head Bobbing Respiratory Depth Deep Respiratory Pattern Tachypnea Blood Pressure 188/95 H 114/89 H Blood Pressure Mean 126 97 Pulse Ox 99 97 Oxygen Delivery Method Nasal Cannula Nasal Cannula Bi-pap Oxygen Flow Rate (L/min) 8 8 Fraction of Inspired Oxygen (FIO2) 40 05/28/22 22:38 05/28/22 22:43 Temperature 97.8 F Temperature Source Temporal Pulse Rate 74 109 H Respiratory Rate 16 Respiratory Effort Respiratory Depth Respiratory Pattern Blood Pressure 166/68 H Blood Pressure Mean 100 Pulse Ox 99 Oxygen Delivery Method Room Air Oxygen Flow Rate (L/min) Fraction of Inspired Oxygen (FIO2) Positive cachectic Constitutional Narrative: Patient significant respiratory distress General Appearance ED: cachectic Nutritional Appearance: cachectic HEENT Reports moist mucous membranes Eyes PERRL and EOMs intact bilaterally Neck supple Neck Narrative: Positive JVD Chest Wall inspection of chest normal Resp Resp Narrative: Agonal respirations with decreased air movement. Tachypneic. Significantly diminished breath sounds on the right. Scattered wheezing present. Cardio regular rhythm Rate: tachycardic GI normal to inspection, nondistended, normoactive bowel sounds and non-tender Extremity normal to inspection General Extremety ED: Negative for tenderness Neuro Neuro Narrative: Obtunded, normal tone throughout Skin Skin Narrative: Skin tears to bilateral wrists with some active bleeding MDM MDM MDM Narrative Medical decision making narrative: Patient is evaluated for respiratory distress. Patient is obtunded upon arrival. Given her history I suspect she is in hypercapnic respiratory failure. Patient is placed on BiPAP and does have some improvement of her mentation, tachycardia and work of breathing. She is given IV magnesium and breathing treatments. Patient will be admitted to the ICU for further respiratory management. Family is agreeable this plan of care. Patient's presentation is highly consistent with a COPD exacerbation and chest x-ray does not show any acute process. I do not think antibiotics are indicated for pneumonia. Lab Data Attestation: I reviewed the patient's lab results. Labs: Laboratory Results - last 24 hr 05/28/22 05/28/22 05/28/22 21:45 21:45 21:45 WBC 11.5 H RBC 4.00 L Hgb 11.8 L Hct 39.7 MCV 99.3 H MCH 29.5 MCHC 29.7 L RDW Std Deviation 48.3 H RDW Coeff of Sami 13.2 Plt Count 224 MPV 11.7 Immature Gran % (Auto) 0.300 Neut % (Auto) 56.5 Lymph % (Auto) 34.3 [place] % (Auto) 6.9 Eos % (Auto) 1.7 Baso % (Auto) 0.3 Absolute Neuts (auto) 6.5 Absolute Lymphs (auto) 3.95 Nucleated RBC % 0 Sodium 138 Potassium 4.3 Chloride 101 Carbon Dioxide 34.0 H Anion Gap 3 L BUN 20 H Creatinine 0.53 L Estim Creat Clear Calc 73.91 Est GFR (MDRD) Af Amer 148 Est GFR (MDRD) Non-Af 123 BUN/Creatinine Ratio 37.5 H Glucose 240 H Lactic Acid 0.9 Calcium 8.7 Troponin I High Sens 84 H ABG Data ABG results: ABG 05/28/22 21:56 Specimen Type MILE VBG pH 7.19 L* VBG pO2 164 H VBG HCO3 32 H VBG Total CO2 35 H VBG O2 Sat (Calc) 99 H VBG Base Excess 4 H POC Mix VBG pCO2 Pt Tmp 83.6 H* Respiration Rate 12 O2 Delivery Device BiPAP POC PEEP 8 POC Pressure Suppt 8 Crit Call To/Read Back Yes Blood Gas Notified Whom Blood Gas Notified Time 22:01:52 Clinical Comments Rhythm Strip Rhythm Strip: Sinus Tach Rate: 109 Ectopy: None EKG Initial EKG: Attestation: I personally reviewed and interpreted this EKG as follows: Interpretation: Sinus Tachycardia Comments: Sinus tachycardia at a rate of 109 with occasional PVC Normal axis Biatrial enlargement Nonspecific T wave changes Compared to prior EKG on 06/23/2019, patient is now tachycardic and has T wave inversions in the lateral leads Critical Care Time Critical Care Time: Yes Critical care time (excluding procedures): 30-74 minutes (41), Including time spent: (Frequent reevaluation for acute on chronic respiratory failure/respiratory distress), Discussing w/Patient &/or Family/Information Support Project Manager and Arranging Admission or Transfer Discharge Plan Triage Chief Complaint: Unresponsive ED Provider: Roselyn Osorio Dx/Rx/DC Orders Clinical Impression: Acute and chronic respiratory failure with hypercapnia, Non-ischemic cardiomyopathy, Stage 4 very severe COPD by GOLD classification Primary Care Provider: Isabel Rae Disposition Disposition: [facility]
[2022-05-28] MEDS: Ipratropium/Albuterol Sulfate 3 ML AMPUL.NEB INHALATION (21:59)
[2022-05-28] MEDS: Albuterol 2.5 MG/3 ML VIAL.NEB. INHALATION ×2 (21:59)
[2022-05-28 22:05] LABS: Blood Gas Specimen Type VEN; O2 Delivery Device BiPAP; PEEP 8; PS 8; RR 12; VBG BASE EXCESS 4 mmol/L (-1.0-3.5); VBG Bicarbonate 32 mmol/L (22-26); VBG PO2 164 mmHg (25-40); VBG SO2 99 % (50-70); VBG TCO2 35 mmol/L (23-33); VBG pCO2 83.6 mmHg (41-51); VBG pH 7.19 (7.32-7.42)
[2022-05-28 22:09] LABS: Absolute Lymphocyte Count 3.95 X10^3/uL (0.83-4.51); Absolute Neutrophil Count 6.5 X10^3/uL (2.0-7.7); Basophil# 0.04 X10^3/uL; Basophil% 0.3 % (0-1); Eosinophils% 1.7 % (0-5); Hematocrit 39.7 % (37-47); Hemoglobin 11.8 g/dL (12.0-15.0); Lymphocyte # 3.95 X10^3/ul (0.83-4.51); Lymphocyte % 34.3 % (19-41); Mean Corp Hgb Conc 29.7 g/dL (32-36); Mean Corpuscular Hgb 29.5 pg (27.0-32.0); Mean Corpuscular Volume 99.3 fL (81-99); Mean Platelet Vol. 11.7 fl (6.2-12.0); Monocyte# 0.79 X10^3/uL; Monocyte% 6.9 % (0-10); NRBC Flagged by Analyzer 0 % (0-5); Neutrophil # 6.52 X10^3/uL (2.7-7.7); Neutrophil % 56.5 % (47-70); Platelet Count 224 K/mm3 (150-450); RBC Distribution Width CV 13.2 % (11.6-14.6); RBC Distribution Width SD 48.3 fl (35.1-43.9); White Blood Count 11.5 K/mm3 (4.4-11.0)
[2022-05-28 22:21] LABS: Lactic Acid 0.9 mmol/L (0.4-1.9)
[2022-05-28] MEDS: MethylPREDNISolone 125 MG/2 ML Vial IV (22:25)
--- NOTE | 2022-05-28 22:47 | ED.RN ---
Dr Osorio is aware the patient is tripping the sepsis alert d/t the respiratory failure. Dr Osorio agreeable this is not sepsis. Per family she only has 20% lung function and has copd. They report sudden onset with emotional stress after talking to her daughter. reports she gets this way with stress.
[2022-05-28 22:51] LABS: Anion Gap 3 (5-15); BUN 20 mg/dL (7-18); BUN/Creat Ratio 37.5 RATIO (10-20); Calcium,Total 8.7 mg/dL (8.5-10.1); Chloride 101 mmol/L (98-107); Creatinine, Serum 0.53 mg/dL (0.55-1.02); EST Glomerular Filtration Rate 123 mL/min (>60); Est Glom Filt Rate - Afr Amer 148 mL/min (>60); Estimated Creatinine Clearance 73.91 ml/min; Glucose 240 mg/dL (74-106); Potassium 4.3 mmol/L (3.5-5.1); Sodium Level 138 mmol/L (136-145); Troponin-I HS 84 pg/mL (3.0-54.0)
--- NOTE | 2022-05-28 22:58 | RAD_ITS ---
STUDY: X-RAY CHEST REASON FOR EXAM: Female, 61 years old. No evidence of breath. Patient was pulled out of the car unresponsive. Unresponsive for 15 minutes. TECHNIQUE: Single AP portable view of the chest. COMPARISON: June 17, 2019. FINDINGS: There is hyperinflation of the lungs consistent with chronic obstructive lung disease (COPD). There is no new mass or infiltrate. There is no demonstrated pleural abnormality. Normal size heart. Normal mediastinum and celsa. Normal visualized pulmonary arteries. There is atherosclerotic calcification of the aortic arch with tortuosity. Normal visualized thoracic spine. Normal visualized ribs, clavicles, and shoulders. There is no demonstrated abnormality of the visualized soft tissue structures of the upper abdomen. RAD/Chest 1 View (Portable) IMPRESSION: COPD without acute cardiopulmonary disease or interval change. Electronically Signed: Norbert Cruz DO at 23:28 EDT ,
--- NOTE | 2022-05-28 23:16 | HP.PCM.HOS_ITS ---
HPI - General General Date of Admission: 05/28/22 Date of Service: 05/28/22 Chief Complaint: Unresponsiveness HPI Narrative KARYNA SALEH, is a 61 F who presented to the emergency department [facility] on 05/28/2022. The patient had been doing well today on her baseline 4 L nasal cannula however she got very worked up after an argument with her daughter and progressively became more hypoxic and then obtunded. Her husb and reported that she got very diaphoretic and when that happened he switched to from her oxygen tank to her concentrator because it increases her oxygen supply. He reported that she did not improve and became less responsive so he drove her to the emergency more immediately. She is a DNR CCA with no intubation and she was placed emergently on BiPAP in the emergency department after her ABG showed hypercapnia. reports she had no previous symptoms prior to presentation to the emergency department however he does note that when she has arguments with her daughter she tends to get worked up and has issues as she is having this evening. She follows with Dr. Enamorado as an outpatient for severe end-stage COPD. She is still smoking, however, she has cut back. Vitals on presentation show temperature of 97.3, heart rate of 130 improved to 109, initial blood pressure was 188/8095 however it improved to 166/68 after BiPAP placement, respiratory rate was 26 and pulse ox on 8 L nasal cannula was 99%. There is no documentation of hypoxia on our vitals however there was report of hypoxia prior to presentation by the emergency department. CBC shows a leukocytosis that is mild at 11.5, anemia with a hemoglobin of 11.8. She has no left shift. Her VBG shows a pH of 7.19 with a CO2 of 35 and this was performed on BiPAP. Her chemistry panel shows chronic bicarbonate elevation with normal renal function. Her lactic acid was 0.9. Her glucose was 240. And her initial troponin was 84. Her checks x-ray shows no acute findings but does demonstrate hyperinflation with chronic interstitial scarring and flattened diaphragms. Her EKG shows sinus tachycardia with no signs of ST-T wave changes. In the emergency department she was placed on emergent BiPAP and given magnesium as well as Solu-Medrol 125 mg x 1 dose and a DuoNeb. After about 30 minutes of BiPAP placement her mental status did start to improve and she was able to answer questions at the time of my evaluation however she still remained short of breath. PENDING SALE TO [facility] Medical History Chronic respiratory failure with hypoxia Essential (primary) hypertension History of non-ST elevation myocardial infarction (NSTEMI) (06/21/19) Hyperlipidemia Nicotine dependence Non-ischemic cardiomyopathy DONNA (obstructive sleep apnea) Stage 4 very severe COPD by GOLD classification Home Medications acetaminophen 500 mg tablet 1,000 mg PO DAILY PRN PRN Pain Or Fever 10/04/18 [H istory Last Taken 06/13/19] lisinopril 10 mg tablet 10 mg PO DAILY BP 10/04/18 [History Last Taken 06/14/19] cholecalciferol (vitamin D3) 1,250 mcg (50,000 unit) capsule 50,000 unit PO DACOSTA supplement 06/17/19 [History Last Taken 06/16/19] elderberry fruit 200 mg capsule mg PO 12/04/19 [History Last Taken Unknown] albuterol sulfate 2.5 mg/3 mL (0.083 %) solution for nebulization 2.5 mg (3 mL) inhalation Q6HWA.RT ##120 08/20/20 [Rx Last Taken Unknown] Nebulizer #1 ea 11/23/21 [Rx Last Taken Unknown] azelastine 205.5 mcg (0.15 %) nasal spray 1 spray intranasal BID #30 mL 11/23/21 [Rx Last Taken Unknown] wheel chair #1 ea 11/23/21 [Rx Last Taken Unknown] doxycycline hyclate 100 mg tablet 100 mg PO BID #20 tabs 03/01/22 [Rx Last Taken Unknown] nicotine 14 mg/24 hr daily transdermal patch 1 patch transdermal Q24H #28 ea 03/01/22 [Rx Last Taken Unknown] prednisone 10 mg tablet 10 mg PO DAILY #30 tabs 03/01/22 [Rx Last Taken Unknown] albuterol sulfate 90 mcg/actuation aerosol inhaler 1 - 2 puff PO PRN PRN Sob &/Or Wheezing #18 grams 03/14/22 [Rx Last Taken Unknown] tiotropium bromide 2.5 mcg/actuation mist for inhalation 1 puff inhalation DAILY COPD #4 grams 03/14/22 [Rx Last Taken Unknown] budesonide-formoterol HFA 160 mcg-4.5 mcg/actuation aerosol inhaler (Symbicort) 2 puff inhalation BID #10.2 grams 04/04/22 [Rx Last Taken Unknown] Allergy/AdvReac Type Severity Reaction Status Date / Time codeine Allergy Rash Verified 05/28/22 21:41 ibuprofen Allergy Rash Verified 05/28/22 21:41 Family History Father Lung cancer Mother Breast cancer Parkinsons disease Surgical History H/O tubal ligation Social History (Updated 05/28/22 @ 23:[address] Paulette Garrison DO) household members: significant other housing: house Smoking Status: Current every day smoker tobacco type: cigarettes alcohol intake: never substance use type: does not use ROS Constitutional Constitutional: Denies anorexia, change in weight, chills, fatigue, fever(s), malaise, night sweats, weakness or other Eyes Eyes: Denies blurry vision, change in eye color, change in vision, discharge from eye(s), double vision, erythema, eye pain, loss of vision or other ENT HEENT: Denies abnormal hearing, dysphagia, ear pain, epistaxis, headache(s), hearing loss, nasal congestion, nasal discharge, post nasal drip, sinus pressure, sore throat or other Cardiovascular Cardiovascular: Reports dyspnea on exertion; Denies chest pain, claudication, edema, lightheadedness, orthopnea, palpitations, paroxysmal nocturnal dyspnea, rapid heart rate, syncope or other Respiratory/Chest Respiratory/Chest: Reports dyspnea, shortness of breath at rest, shortness of breath with exertion and wheezing; Denies cough, excessive phlegm production, hemoptysis, productive cough or other Gastrointestinal Gastrointestinal: Denies abdominal pain, coffee ground emesis, constipation, diarrhea, dyspepsia, hematemesis, hematochezia, loose stools, melena, nausea, vomiting or other Genitourinary Genitourinary: Denies burning urination, difficulty urinating, dysuria, hematuria, nocturia, urinary frequency, urinary hesitancy, urinary incontinence, urinary urgency or other Musculoskeletal Musculoskeletal: Denies arthralgias, back pain, joint pain, joint stiffness, joint swelling, myalgias, neck pain or other Neurologic Neurologic: Denies abnormal gait, abnormal speech, confusion, disequilibrium, dizziness, focal weakness, headache(s), numbness, paresthesias, seizure-like activity, seizures, syncope, tingling, tremor(s) or other Psychiatric Psychiatric: Denies anxiety, depression, homicidal ideation, suicidal ideation or other Endocrine Endocrinology: Denies change in body appearance, cold intolerance, excessive sweating, heat intolerance, polydipsia, polyuria or other Hematologic/Lymphatic Hematologic/Lymphatic: Denies anemia, easy bleeding, easy bruising, lymphadenopathy or other Allergic/Immunologic Allergic/Immunologic: Denies rhinitis, hives, eczemia, asthma or other Vital Signs Vital Signs Vital Signs: 05/28/22 21:38 05/28/22 21:43 05/28/22 21:49 Temperature 97.3 F L Temperature Source Temporal Pulse Rate 130 H 134 H Respiratory Rate 26 H 26 H Respiratory Effort Labored Accessory Muscle Use Nasal Flaring Pursed Lip Splinting Head Bobbing Respiratory Depth Deep Respiratory Pattern Tachypnea Blood Pressure 188/95 H 114/89 H Blood Pressure Mean 126 97 Pulse Ox 99 97 Oxygen Delivery Method Nasal Cannula Nasal Cannula Bi-pap Oxygen Flow Rate (L/min) 8 8 Fraction of Inspired Oxygen (FIO2) 40 05/28/22 22:38 05/28/22 22:43 Temperature 97.8 F Temperature Source Temporal Pulse Rate 74 109 H Respiratory Rate 16 Respiratory Effort Respiratory Depth Respiratory Pattern Blood Pressure 166/68 H Blood Pressure Mean 100 Pulse Ox 99 Oxygen Delivery Method Room Air Oxygen Flow Rate (L/min) Fraction of Inspired Oxygen (FIO2) Weight Weight: 43.091 kg Body Mass Index (BMI) 18.5 Physical Exam Const alert and oriented x3 Constitutional Narrative: Cachectic appearing upper middle-aged white female who appears much older than stated age, sitting up in bed, at bedside, currently on BiPAP and still showing some signs of respiratory distress however indicates she is improving General Appearance: cooperative HEENT normocephalic, head/scalp atraumatic, hearing grossly normal bilaterally and moist oral mucous membranes HEENT Narrative: Dentition is poor, Mallampati is 2, no thrush Eyes PERRL, EOMs intact bilaterally and conjunctivae normal Eyes Narrative: No scleral icterus Neck no lymphadenopathy and supple Neck Narrative: Trachea midline, no thyroid enlargement Resp no retractions and no use of accessory muscles Resp Narrative: Markedly diminished diffusely with few end expiratory wheezes but overall poor air movement Auscultation: wheezes; Negative for rales or rhonchi Cardio regular rhythm, S1 normal heart sound, S2 normal heart sound, no murmurs, no rub, no gallops and no clicks Cardio Narrative: Mild tachycardia GI normal to inspection, nondistended, normoactive bowel sounds, soft to palpation and non-tender GI Narrative: Scaphoid abdomen Extremity no clubbing, cyanosis or edema Extremity Narrative: Decreased lean muscle mass, 2+ pedal pulses Skin skin turgor normal, no jaundice, no petechiae and no mottling Skin Narrative: Bilateral upper extremity scattered ecchymosis, skin is fragile Neuro oriented x3, CN's II-XII intact bilaterally, moves all extremities and no focal motor deficits Neuro Narrative: No sensory deficits, generalized weakness Speech: speech normal Psych Psych Narrative: Affect is somewhat flat however patient is appropriately interactive at this time Results Lab / Micro Data Result Diagrams: 05/28/22 21:45 05/28/22 21:45 Labs: Laboratory Results - last 24 hr 05/28/22 21:45: WBC 11.5 H, RBC 4.00 L, Hgb 11.8 L, Hct 39.7, MCV 99.3 H, MCH 29.5, MCHC 29.7 L, RDW Std Deviation 48.3 H, RDW Coeff of Asmi 13.2, Plt Count 224, MPV 11.7, Immature Gran % (Auto) 0.300, Neut % (Auto) 56.5, Lymph % (Auto) 34.3, [place] % (Auto) 6.9, Eos % (Auto) 1.7, Baso % (Auto) 0.3, Absolute Neuts (au to) 6.5, Absolute Lymphs (auto) 3.95, Nucleated RBC % 0 05/28/22 21:45: Sodium 138, Potassium 4.3, Chloride 101, Carbon Dioxide 34.0 H, Anion Gap 3 L, BUN 20 H, Creatinine 0.53 L, Estim Creat Clear Calc 73.91, Est GFR (MDRD) Af Amer 148, Est GFR (MDRD) Non-Af 123, BUN/Creatinine Ratio 37.5 H, Glucose 240 H, Calcium 8.7, Troponin I High Sens 84 H 05/28/22 21:45: Lactic Acid 0.9 ABG Data ABG results: ABG 05/28/22 21:56 Specimen Type MILE VBG pH 7.19 L* VBG pO2 164 H VBG HCO3 32 H VBG Total CO2 35 H VBG O2 Sat (Calc) 99 H VBG Base Excess 4 H POC Mix VBG pCO2 Pt Tmp 83.6 H* Respiration Rate 12 O2 Delivery Device BiPAP POC PEEP 8 POC Pressure Suppt 8 Crit Call To/Read Back Yes Blood Gas Notified Whom Blood Gas Notified Time 22:01:52 Clinical Comments Rhythm Strip Rhythm Strip: Sinus Tach Rate: 109 Ectopy: None Assessment & Plan Assessment/Plan (1) Acute on chronic respiratory failure with hypoxia and hypercapnia: (2) Acute exacerbation of COPD with asthma: (3) Leukocytosis: (4) Severe malnutrition: (5) Elevated troponin I level: (6) Hyperglycemia: (7) COPD with acute exacerbation: PLAN: Plan Acute on chronic hypercapnic and hypoxic respiratory failure suspected secondary to acute exacerbation of COPD -Came in obtunded with a pH of 7.1 -Improving on BiPAP -Repeat ABG at 12:30 AM -Wean BiPAP as able -Patient is oxygen dependent at baseline at 4 L nasal cannula -We will cover empirically with leukocytosis--> azithromycin and ceftriaxone -Check strep pneumo and Legionella antigens -Check respiratory viral panel -COVID negative -Chest x-ray shows chronic interstitial changes with scarring and hyperinflation with flattened diaphragm -Start Solu-Medrol -DuoNebs -Incentive spirometry -N.p.o. for now but okay for p.o. 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 Hyperglycemia -Suspect stress response versus chronic steroid use versus both -Check hemoglobin A1c -Sliding scale insulin -Accu-Cheks every 6 while n.p.o. and then AC when able to take p.o. diet Nonischemic cardiomyopathy -Last EF in 2019 was 45% -We will hold any aggressive IV fluids at this time -Does not clinically appear to be in failure -Continue to monitor volume status Vitamin D deficiency -Hold ergocalciferol and restarted at discharge COPD stage IV -See above -Hold home inhalers for now and restart at discharge -Follows with pulmonary medicine as an outpatient Hypertension -Continue home lisinopril -As needed hydralazine Ongoing tobacco abuse -Recommend cessation -Nicotine patch Debility -PT/OT consultation DVT prophylaxis -Lovenox daily -SCDs CODE STATUS -DNR CCA with no intubation as per discussion on admission Charges/Coding Procedures Hospitalists Procedures: [id number] Critial Care 1st Hr
[2022-05-28 23:31] LABS: Allen Test Positive; Base Excess 7 mmol/L (-2 to +2); Bicarbonate 35.7 mmol/L (22-26); Blood Gas Specimen Type ART; FI02 40; O2 Delivery Device BiPAP; PO2 89 mmHG (75-100); SITE L Radial; SO2 93 % (95-99); Total Carbon Dioxide 39 mmol/L; pCO2 94.8 mmHg (35-45); pH 7.18 (7.35-7.45)
--- NOTE | 2022-05-28 23:45 | CPS ---
Pressure lowered for pt comfort.
[2022-05-29] VITALS (32 sets, daily range): BP systolic 111–152; BP diastolic 60–80; PULSE 86–124; RESP 12–29; TEMP 35.6–36.8; O2SAT 93–100; BMI 18.1
[2022-05-29] MEDS: Insulin Lispro 100 UNIT/ML INSULN.PEN SC ×2 (00:35→18:06)
[2022-05-29 00:46] LABS: Allen Test Positive; Base Excess 8 mmol/L (-2 to +2); Bicarbonate 34.2 mmol/L (22-26); Blood Gas Specimen Type ART; Comment 12/6 12 28%; FI02 28; O2 Delivery Device BiPAP; PO2 63 mmHG (75-100); RR 12; SITE R Radial; SO2 87 % (95-99); Total Carbon Dioxide 36 mmol/L; pCO2 72.5 mmHg (35-45); pH 7.28 (7.35-7.45)
[2022-05-29 00:47] LABS: Troponin-I HS 97 pg/mL (3.0-54.0)
[2022-05-29 00:55] LABS: Bedside Glucose 158 mg/dL (74-106)
[2022-05-29] MEDS: Ipratropium/Albuterol Sulfate 3 ML AMPUL.NEB INHALATION ×4 (02:15→18:25)
[2022-05-29 03:40] LABS: Absolute Lymphocyte Count 0.17 X10^3/uL (0.83-4.51); Absolute Neutrophil Count 7.9 X10^3/uL (2.0-7.7); Hemoglobin 10.6 g/dL (12.0-15.0); Lymphocyte # 0.17 X10^3/ul (0.83-4.51); Lymphocyte % 2.1 % (19-41); Mean Corp Hgb Conc 30.3 g/dL (32-36); Mean Corpuscular Hgb 29.5 pg (27.0-32.0); Mean Corpuscular Volume 97.5 fL (81-99); Mean Platelet Vol. 11.6 fl (6.2-12.0); Monocyte% 1.2 % (0-10); NRBC Flagged by Analyzer 0 % (0-5); Neutrophil % 96.3 % (47-70); POSITIVE DIFFERENTIAL YES; Platelet Count 135 K/mm3 (150-450); RBC Distribution Width CV 13.2 % (11.6-14.6); RBC Distribution Width SD 47.2 fl (35.1-43.9); Red Blood Count 3.59 M/mm3 (4.2-5.4); White Blood Count 8.2 K/mm3 (4.4-11.0)
[2022-05-29 03:44] LABS: Differential Indicated SCAN CRITERIA MET
[2022-05-29 04:02] LABS: Platelet Estimate SLT DEC (ADEQ)
[2022-05-29 04:09] LABS: ALB/GLOB Ratio 0.9 RATIO (0.9-2.4); AST(SGOT) 75 U/L (15-37); Alanine Aminotransfer ALT/SGPT 85 U/L (13-56); Albumin, Serum 3.2 g/dL (3.2-5.0); Alkaline Phosphatase 59 U/L (45-117); Anion Gap 4 (5-15); BUN 23 mg/dL (7-18); BUN/Creat Ratio 62.2 RATIO (10-20); Calcium,Total 8.6 mg/dL (8.5-10.1); Chloride 100 mmol/L (98-107); Creatinine, Serum 0.37 mg/dL (0.55-1.02); EST Glomerular Filtration Rate 187 mL/min (>60); Est Glom Filt Rate - Afr Amer 227 mL/min (>60); Estimated Creatinine Clearance 103.68 ml/min; Globulin 3.4 g/dL (2.2-4.2); Glucose 119 mg/dL (74-106); Magnesium 2.5 mg/dL (1.6-2.6); Potassium 5.2 mmol/L (3.5-5.1); Protein, Total 6.6 g/dL (6.4-8.2); Sodium Level 135 mmol/L (136-145); Thyroid Stim Hormone (TSH) 0.39 uIU/mL (0.358-3.74)
[2022-05-29 04:10] LABS: Troponin-I HS 109 pg/mL (3.0-54.0)
[2022-05-29 06:05] LABS: Bedside Glucose 126 mg/dL (74-106)
--- NOTE | 2022-05-29 06:14 | CON.PCM.CC_ITS ---
Assessment & Plan Assessment/Plan (1) Acute on chronic respiratory failure with hypoxia and hypercapnia: PLAN: Plan RECOMMENDATIONS: 1. Wean supplemental oxygen to maintain saturations 88 to 92%. 2. Continue scheduled bronchodilators and IV steroids. 3. Antimicrobials can be discontinued tomorrow, if infectious work-up remains negative. 4. Continue BiPAP therapy with naps and nightly. 5. Encourage incentive spirometer use and mobilize patient as tolerated. 6. Continue DVT prophylaxis as ordered. IMPRESSIONS: 1. Acute on chronic combined respiratory failure The patient was initially admitted to the intensive care unit with CO2 retention leading to encephalopathy and the need for noninvasive positive pressure ventilatory support. I do suspect that her argument earlier in the day with her daughter likely induced a state of increased metabolic demand that she was unable to support due to her limited respiratory reserve. No focal infiltrate was identified on chest imaging. For now, it is reasonable to continue s cheduled bronchodilators and IV steroids. Antimicrobials can be discontinued tomorrow if infectious work-up remains negative. BiPAP can continue to be utilized, if needed, with naps and nightly. Given the patient's state of frequent exacerbations, she would likely be a good candidate for outpatient trilogy initiation. Resume triple therapy inhaler regimen at discharge. 2. History of nonischemic cardiomyopathy/troponin elevation Likely secondary to demand ischemia in the setting of #1. Continue to monitor clinically. 3. Chronic tobacco dependency Despite the end-stage nature of the patient's COPD, she does continue to smoke cigarettes daily. I personally spent 3 minutes discussing the deleterious effects of continued tobacco use with the patient, including modalities which could be utilized to achieve a smoke-free lifestyle. Nicotine replacement therapy can be utilized while the patient is admitted to the hospital. This note was generated with [employer] dictation software. It may contain incorrect words, spelling, and punctuation that were not noted in checking the note before signing. HPI Consult Data Date of Consult: 05/29/22 HPI Narrative Reason for Consultation: Respiratory failure HPI Narrative: The patient is a 61-year-old female, with a history as outlined below, who presented to the emergency department on May 28 after becoming unresponsive. The patient has a known history of end-stage COPD, chronic hypoxemic respiratory failure and ongoing tobacco dependency. She is followed by Dr. Enamorado in the pulmonary medicine clinic. She appears to have last been treated for an exacerbation in February 2022. She does continue to smoke 0.5 packs of cigarettes per day. She typically utilizes 4 L/min of supplemental oxygen at her baseline. According to the patient, she got into an argument with her daughter earlier in the day, after which time, she became progressively hypoxic and less responsive. On presentation to the emergency department, the patient was noted to be afebrile but was notably tachycardic, tachypneic and hypertensive with a blood pressure of 188/95 mmHg. Initial laboratory evaluation revealed an elevated [facility] te blood cell count to 12,000. Chemistry profile was notable for a bicarbonate of 34. Lactate was within normal limits. Troponin was mildly elevated at 84. Initial arterial blood gas demonstrated a pH of 7.18 with a PCO2 of 95 and PO2 of 89. Chest x-ray demonstrated no acute cardiopulmonary process. The patient was initially placed on ceftriaxone, azithromycin, scheduled bronchodilators and IV steroids. In light of her CO2 retention, the patient was initiated on BiPAP therapy. She was subsequently admitted to the medical intensive care unit. This morning, the patient has returned back to her baseline from a respiratory perspective. She tolerated overnight BiPAP quite well and is currently maintaining appropriate oxygen saturations on 2 L/min via nasal cannula. [facility] Medical History Chronic respiratory failure with hypoxia Essential (primary) hypertension History of non-ST elevation myocardial infarction (NSTEMI) (06/21/19) Hyperlipidemia Nicotine dependence Non-ischemic cardiomyopathy DONNA (obstructive sleep apnea) Stage 4 very severe COPD by GOLD classification Home Medications acetaminophen 500 mg tablet 1,000 mg PO DAILY PRN PRN Pain Or Fever 10/04/18 [History Last Taken 06/13/19] lisinopril 10 mg tablet 10 mg PO DAILY BP 10/04/18 [History Last Taken 06/14/19] cholecalciferol (vitamin D3) 1,250 mcg (50,000 unit) capsule 50,000 unit PO DACOSTA supplement 06/17/19 [History Last Taken 06/16/19] elderberry fruit 200 mg capsule mg PO 12/04/19 [History Last Taken Unknown] albuterol sulfate 2.5 mg/3 mL (0.083 %) solution for nebulization 2.5 mg (3 mL) inhalation Q6HWA.RT ##120 08/20/20 [Rx Last Taken Unknown] Nebulizer #1 ea 11/23/21 [Rx Last Taken Unknown] azelastine 205.5 mcg (0.15 %) nasal spray 1 spray intranasal BID #30 mL 11/23/21 [Rx Last Taken Unknown] wheel chair #1 ea 11/23/21 [Rx Last Taken Unknown] doxycycline hyclate 100 mg tablet 100 mg PO BID #20 tabs 03/01/22 [Rx Last Taken Unknown] nicotine 14 mg/24 hr daily transdermal patch 1 patch transdermal Q24H #28 ea 03/01/22 [Rx Last Taken Unknown] prednisone 10 mg tablet 10 mg PO DAILY #30 tabs 03/01/22 [Rx Last Taken Unknown] albuterol sulfate 90 mcg/actuation aerosol inhaler 1 - 2 puff PO PRN PRN Sob &/Or Wheezing #18 grams 03/14/22 [Rx Last Taken Unknown] tiotropium bromide 2.5 mcg/actuation mist for inhalation 1 puff inhalation DAILY COPD #4 grams 03/14/22 [Rx Last Taken Unknown] budesonide-formoterol HFA 160 mcg-4.5 mcg/actuation aerosol inhaler (Symbicort) 2 puff inhalation BID #10.2 grams 04/04/22 [Rx Last Taken Unknown] Allergy/AdvReac Type Severity Reaction Status Date / Time codeine Allergy Rash Verified 05/28/22 21:41 ibuprofen Allergy Rash Verified 05/28/22 21:41 Family History Father Lung cancer Mother Breast cancer Parkinsons disease Surgical History H/O tubal ligation Social History (Updated 05/28/22 @ 23:[address] Paulette Garrison DO) household members: significant other housing: house Smoking Status: Current every day smoker tobacco type: cigarettes alcohol intake: never substance use type: does not use ROS ROS Narrative 10 systems were reviewed with pertinent positives as noted in the HPI above. Physical Exam Const alert and no apparent distress Constitutional Narrative: Frail and cachectic in appearance. General Appearance: cooperative HEENT normocephalic and head/scalp atraumatic Eyes PERRL, EOMs intact bilaterally and conjunctivae normal Neck supple General: trachea midline Chest inspection of chest normal Resp normal respiratory effort Effort and Inspection: prolonged expiratory phase Auscultation: diminished lung sounds Cardio regular rate and regular rhythm GI normal to inspection, nondistended, normoactive bowel sounds Extremity General Extremity: clubbing; Negative for edema Skin Skin Narrative: Bruising over distal upper extremities. Neuro CN's II-XII intact bilaterally and no focal motor deficits Psych cooperative and affect normal Lab / Micro Data Result Diagrams: 05/29/22 03:30 05/29/22 03:30 Labs: Laboratory Results - last 24 hr 05/28/22 21:45: WBC 11.5 H, RBC 4.00 L, Hgb 11.8 L, Hct 39.7, MCV 99.3 H, MCH 29.5, MCHC 29.7 L, RDW Std Deviation 48.3 H, RDW Coeff of Sami 13.2, Plt Count 224, MPV 11.7, Immature Gran % (Auto) 0.300, Neut % (Auto) 56.5, Lymph % (Auto) 34.3, [place] % (Auto) 6.9, Eos % (Auto) 1.7, Baso % (Auto) 0.3, Absolute Neuts (auto) 6.5, Absolute Lymphs (auto) 3.95, Nucleated RBC % 0 05/28/22 21:45: Sodium 138, Potassium 4.3, Chloride 101, Carbon Dioxide 34.0 H, Anion Gap 3 L, BUN 20 H, Creatinine 0.53 L, Estim Creat Clear Calc 73.91, Est G FR (MDRD) Af Amer 148, Est GFR (MDRD) Non-Af 123, BUN/Creatinine Ratio 37.5 H, Glucose 240 H, Calcium 8.7, Troponin I High Sens 84 H 05/28/22 21:45: Lactic Acid 0.9 05/29/22 00:20: Troponin I High Sens 97 H 05/29/22 00:34: POC Glucose 158 H 05/29/22 03:30: WBC 8.2, RBC 3.59 L, Hgb 10.6 L, Hct 35.0 L, MCV 97.5, MCH 29.5, MCHC 30.3 L, RDW Std Deviation 47.2 H, RDW Coeff of Sami 13.2, Plt Count 135 L, MPV 11.6, Immature Gran % (Auto) 0.400, Neut % (Auto) 96.3 H, Lymph % (Auto) 2.1 L, [place] % (Auto) 1.2, Eos % (Auto) 0.0, Baso % (Auto) 0.0, Absolute Neuts (auto) 7.9 H, Absolute Lymphs (auto) 0.17 L, Nucleated RBC % 0, Platelet Estimate SLT 05/29/22 03:30: Sodium 135 L, Potassium 5.2 H, Chloride 100, Carbon Dioxide 31.0, Anion Gap 4 L, BUN 23 H, Creatinine 0.37 L, Estim Creat Clear Calc 103.68, Est GFR (MDRD) Af Amer 227, Est GFR (MDRD) Non-Af 187, BUN/Creatinine Ratio 62.2 H, Glucose 119 H, Calcium 8.6, Phosphorus 3.0, Magnesium 2.5, Total Bilirubin 0.40, AST 75 H, ALT 85 H, Alkaline Phosphatase 59, Total Protein 6.6, Albumin 3.2, Globulin 3.4, Albumin/Globulin Ratio 0.9, TSH 0.39 05/29/22 03:30: Troponin I High Sens 109 H 05/29/22 05:42: POC Glucose 126 H Micro: Microbiology 05/28/22 00:20 Urine Catheter - Catheter Legionella Antigen - Final 05/28/22 00:20 Urine Catheter - Lundberg Streptococcus pneumoniae Antigen (M - Final ABG Data ABG results: ABG 05/28/22 05/28/22 05/29/22 21:56 23:23 00:41 Specimen Type MILE ART ART Sample Site L Radial R Radial pH 7.18 L* 7.28 L Bicarbonate Actual 35.7 H 34.2 H Total CO2 39 36 Base Excess 7 H 8 H O2 Saturation 93 L 87 L O2 % 40 28 ABG pCO2 94.8 H* 72.5 H* ABG pO2 89 63 L Arnoldo Test Positive Positive VBG pH 7.19 L* VBG pO2 164 H VBG HCO3 32 H VBG Total CO2 35 H VBG O2 Sat (Calc) 99 H VBG Base Excess 4 H POC Mix VBG pCO2 Pt Tmp 83.6 H* Respiration Rate 12 12 O2 Delivery Device BiPAP BiPAP BiPAP POC PEEP 8 POC Pressure Suppt 8 Crit Call To/Read Back Yes Yes Yes Blood Gas Notified Whom dr.godman dr cheryl Garrison Blood Gas Notified Time 22:01:52 Clinical Comments 06/28 12 28% Rhythm Strip Rhythm Strip: Sinus Tach Rate: 109 Ectopy: None Radiology Impression Chest X-Ray 05/28/22 22:58 IMPRESSION: COPD without acute cardiopulmonary disease or interval change. Electronically Signed: Norbert Cruz DO at 23:28 EDT Reading Location ID and State: [address] [place] [address] Tel [phone], Service support , Charges/Coding Visit Charges Inpatient E&M: 18470 Init Hosp L3 Behavior Interventions Behavior Intervention: 07362 Smoking Cessation 3-10 min
[2022-05-29 07:37] LABS: M R Staph aureus DNA By PCR Negative (Negative); Probe Check PASS; Specimen Processing Control PASS
--- NOTE | 2022-05-29 08:15 | PCM.PN.HOSP ---
Subjective Subjective DOS: 05/29/2022 CC: Shortness of breath Reports continued shortness of breath but reports she feels quite a bit better, does have a bit of a cough with some sputum production. Denies chest pain. Denies nausea or vomiting. Denies other complaints this AM Objective Data Objective Data Vital Signs: Vital Signs Temp Pulse Resp BP Pulse Ox O2 Del Method O2 Flow Rate 96.1 F L 105 H 18 135/80 H 97 Nasal Cannula 2 05/29/22 05:00 05/29/22 07:00 05/29/22 07:00 05/29/22 07:00 05/29/22 07:00 05/29/22 07:00 05/29/22 07:00 FiO2 28 05/29/22 04:09 Oxygen Flow Rate (L/min) 2 Oxygen Delivery Method Nasal Cannula Weight: 42.6 kg Body Mass Index (BMI) 18.1 Intake & Output: Intake and Output for Last 24 Hours 05/27/22 05/28/22 05/29/22 23:59 23:59 22:59 Intake Total 604 / 604 400 / 400 Output Total 600 / 600 Balance 604 / 604 -200 / -200 Lab / Micro Data Result Diagrams: 05/29/22 03:30 05/29/22 03:30 Labs: Laboratory Results - last 24 hr 05/28/22 00:10: MRSA (PCR) Negative 05/28/22 21:45: WBC 11.5 H, RBC 4.00 L, Hgb 11.8 L, Hct 39.7, MCV 99.3 H, MCH 29.5, MCHC 29.7 L, RDW Std Deviation 48.3 H, RDW Coeff of Sami 13.2, Plt Count 224, MPV 11.7, Immature Gran % (Auto) 0.300, Neut % (Auto) 56.5, Lymph % (Auto) 34.3, [place] % (Auto) 6.9, Eos % (Auto) 1.7, Baso % (Auto) 0.3, Absolute Neuts (auto) 6.5, Absolute Lymphs (auto) 3.95, Nucleated RBC % 0 05/28/22 21:45: Sodium 138, Potassium 4.3, Chloride 101, Carbon Dioxide 34.0 H, Anion Gap 3 L, BUN 20 H, Creatinine 0.53 L, Estim Creat Clear Calc 73.91, Est GFR (MDRD) Af Amer 148, Est GFR (MDRD) Non-Af 123, BUN/Creatinine Ratio 37.5 H, Glucose 240 H, Calcium 8.7, Troponin I High Sens 84 H 05/28/22 21:45: Lactic Acid 0.9 05/29/22 00:20: Troponin I High Sens 97 H 05/29/22 00:34: POC Glucose 158 H 05/29/22 03:30: WBC 8.2, RBC 3.59 L, Hgb 10.6 L, Hct 35.0 L, MCV 97.5, MCH 29.5, MCHC 30.3 L, RDW Std Deviation 47.2 H, RDW Coeff of Sami 13.2, Plt Count 135 L, MPV 11.6, Immature Gran % (Auto) 0.400, Neut % (Auto) 96.3 H, Lymph % (Auto) 2.1 L, [place] % (Auto) 1.2, Eos % (Auto) 0.0, Baso % (Auto) 0.0, Absolute Neuts (auto) 7.9 H, Absolute Lymphs (auto) 0.17 L, Nucleated RBC % 0, Platelet Estimate SLT 05/29/22 03:30: Sodium 135 L, Potassium 5.2 H, Chloride 100, Carbon Dioxide 31.0, Anion Gap 4 L, BUN 23 H, Creatinine 0.37 L, Estim Creat Clear Calc 103.68, Est GFR (MDRD) Af Amer 227, Est GFR (MDRD) Non-Af 187, BUN/Creatinine Ratio 62.2 H, Glucose 119 H, Calcium 8.6, Phosphorus 3.0, Magnesium 2.5, Total Bilirubin 0.40, AST 75 H, ALT 85 H, Alkaline Phosphatase 59, Total Protein 6.6, Albumin 3.2, Globulin 3.4, Albumin/Globulin Ratio 0.9, TSH 0.39 05/29/22 03:30: Troponin I High Sens 109 H 05/29/22 05:42: POC Glucose 126 H Micro: Microbiology 05/28/22 00:20 Urine Catheter - Catheter Legionella Antigen - Final 05/28/22 00:20 Urine Catheter - Lundberg Streptococcus pneumoniae Antigen (M - Final ABG Data ABG results: ABG 05/28/22 05/28/22 05/29/22 21:56 23:23 00:41 Specimen Type MILE ART ART Sample Site L Radial R Radial pH 7.18 L* 7.28 L Bicarbonate Actual 35.7 H 34.2 H Total CO2 39 36 Base Excess 7 H 8 H O2 Saturation 93 L 87 L O2 % 40 28 ABG pCO2 94.8 H* 72.5 H* ABG pO2 89 63 L Arnoldo Test Positive Positive VBG pH 7.19 L* VBG pO2 164 H VBG HCO3 32 H VBG Total CO2 35 H VBG O2 Sat (Calc) 99 H VBG Base Excess 4 H POC Mix VBG pCO2 Pt Tmp 83.6 H* Respiration Rate 12 12 O2 Delivery Device BiPAP BiPAP BiPAP POC PEEP 8 POC Pressure Suppt 8 Crit Call To/Read Back Yes Yes Yes Blood Gas Notified Whom dr.godman dr cheryl Garrison Blood Gas Notified Time 22:01:52 Clinical Comments 06/28 12 28% Radiography Diagnostic Testing: Radiology Impression Chest X-Ray 05/28/22 22:58 IMPRESSION: COPD without acute cardiopulmonary disease or interval change. Electronically Signed: Norbert Cruz DO at 23:28 EDT Reading Location ID and State: [address] [place] [address] Tel [phone], Service support , Rhythm Strip Rhythm Strip: Sinus Tach Rate: 109 Ectopy: None Physical Exam Const alert and oriented x3 HEENT head/scalp atraumatic Eyes EOMs intact bilaterally Neck supple Resp Resp Narrative: Increased respiratory effort, breath sounds diminished throughout Cardio regular rate and regular rhythm GI soft to palpation, non-tender and non-distended Extremity Extremity Narrative: No edema appreciated Neuro moves all extremities Neuro Narrative: No overt focal neurologic deficits Psych affect normal Assessment & Plan Assessment/Plan (1) Acute on chronic respiratory failure with hypoxia and hypercapnia: (2) Leukocytosis: (3) Severe malnutrition: (4) Elevated troponin I level: (5) Hyperglycemia: (6) COPD with acute exacerbation: PLAN: Plan #Acute on chronic hypercapnic and hypoxic respiratory failure suspected secondary to acute exacerbation of COPD Came in obtunded with pH of 7.1 which was improving on BiPAP, BiPAP as needed and nightly. Patient on O2 this morning and does have some amount of increased work of breathing but reports she feels significantly better Has been covered empirically with azithromycin and Rocephin Chest x-ray with chronic interstitial changes and hyperinflation DuoNekrzysztof, Solu-Medrol, incentive spirometry Pulmonary on board will need to resume triple inhaler regimen at discharge Sputum culture pending Legionella and strep antigen negative MRSA swab negative Will check for COVID and influenza #Elevated troponin Most likely type II related to hypoxia on presentation, very mildly up trended, again feel this is type II secondary to hypoxia. We will repeat to verify no further spike Last echo here 2019 showed an EF of 45% with stage I diastolic dysfunction mild tricuspid valve insufficiency #Elevated transaminases Mildly elevated, possibly due to hypoxia Trend #Nonischemic cardiomyopathy, with additional diastolic dysfunction Last EF 2019 was 45% and also grade 1 diastolic dysfunction Does not appear to be in a CHF #COPD stage IV DuoNekrzysztof, Solu-Medrol, azithromycin Follows with Dr. Enamorado with pulmonology as an outpatient Continues to smoke but is cut back, nicotine patch #Hypertension Home lisinopril As needed hydralazine #Ongoing tobacco use Nicotine patch Recommend cessation #Debility PT/OT #DVT ppx: Lovenox daily Chacha Diaz MD Charges/Coding Visit Charges Inpatient E&M: 04092 Subs Hosp L2
[2022-05-29] MEDS: Enoxaparin 40 MG/0.4 ML Syringe SC (11:02)
[2022-05-29] MEDS: guaiFENesin 1,200 MG Tablet 1200 MG PO ×2 (11:02→22:05)
[2022-05-29] MEDS: Lisinopril 10 MG Tablet PO (11:04)
[2022-05-29] MEDS: Azithromycin 250 MG Tablet 500 MG PO (11:05)
[2022-05-29 11:56] LABS: Bedside Glucose 116 mg/dL (74-106)
[2022-05-29 12:27] LABS: Troponin-I HS 107 pg/mL (3.0-54.0)
[2022-05-29] MEDS: Acetaminophen 500 MG Tablet 1000 MG PO (15:13)
[2022-05-29 16:35] LABS: Bedside Glucose 181 mg/dL (74-106)
--- NOTE | 2022-05-29 16:46 | NURSING ---
pt found sitting in a urine soaked bed. she denies having voided, stating It was this wet when I was put in this bed. disc her gown, the pillows in her lap and under her arm are also wet. offered BSC in order to clean up bed w/out her laying down. She was moved to bsc. bath/gown change. bed linen changed. pt to chair for a mutually agreed upon hour.
[2022-05-29] MEDS: 0.9% Saline Lock 10 ML Syringe IV (22:06)
[2022-05-29 22:31] LABS: Bedside Glucose 122 mg/dL (74-106)
--- NOTE | 2022-05-29 23:35 | CPS ---
[2234] Pt. politely refused BiPAP at this time. Pt.'s RR is normal at 16-18 bpm, with no signs of distress. 2L NC = 98%
[2022-05-30] VITALS (7 sets, daily range): BP systolic 129–131; BP diastolic 67–77; PULSE 79–89; RESP 16–24; TEMP 36.6–37.2; O2SAT 97–99
[2022-05-30 05:18] LABS: Absolute Neutrophil Count 3.3 X10^3/uL (2.0-7.7); Hematocrit 33.8 % (37-47); Hemoglobin 10.4 g/dL (12.0-15.0); Mean Corp Hgb Conc 30.8 g/dL (32-36); Mean Corpuscular Hgb 29.3 pg (27.0-32.0); Mean Corpuscular Volume 95.2 fL (81-99); Mean Platelet Vol. 11.6 fl (6.2-12.0); Monocyte# 0.32 X10^3/uL; NRBC Flagged by Analyzer 0 % (0-5); Neutrophil # 3.25 X10^3/uL (2.7-7.7); Neutrophil % 81.5 % (47-70); POSITIVE DIFFERENTIAL YES; Platelet Count 148 K/mm3 (150-450); RBC Distribution Width CV 13.1 % (11.6-14.6); RBC Distribution Width SD 46.4 fl (35.1-43.9); Red Blood Count 3.55 M/mm3 (4.2-5.4)
[2022-05-30 05:23] LABS: Differential Indicated SCAN CRITERIA MET
[2022-05-30 05:36] LABS: ALB/GLOB Ratio 1.1 RATIO (0.9-2.4); AST(SGOT) 32 U/L (15-37); Alanine Aminotransfer ALT/SGPT 60 U/L (13-56); Albumin, Serum 3.2 g/dL (3.2-5.0); Alkaline Phosphatase 57 U/L (45-117); Anion Gap 5 (5-15); BUN 19 mg/dL (7-18); BUN/Creat Ratio 45.6 RATIO (10-20); Calcium,Total 8.9 mg/dL (8.5-10.1); Chloride 98 mmol/L (98-107); Creatinine, Serum 0.42 mg/dL (0.55-1.02); EST Glomerular Filtration Rate 163 mL/min (>60); Est Glom Filt Rate - Afr Amer 197 mL/min (>60); Estimated Creatinine Clearance 98.48 ml/min; Glucose 125 mg/dL (74-106); Protein, Total 6.2 g/dL (6.4-8.2); Sodium Level 138 mmol/L (136-145)
[2022-05-30 05:39] LABS: Differential Comment SCANNED
[2022-05-30 06:06] LABS: Bedside Glucose 120 mg/dL (74-106)
--- NOTE | 2022-05-30 07:03 | PCM.PN.INT ---
Assessment & Plan Assessment/Plan (1) Acute on chronic respiratory failure with hypoxia and hypercapnia: PLAN: Plan RECOMMENDATIONS: 1. Wean supplemental oxygen to maintain saturations 88 to 92%. 2. Continue scheduled bronchodilators. Okay to transition to p.o. steroids and complete a 5-day burst 3. Discontinue antibiotics 4. Continue BiPAP therapy with naps and nightly. 5. Encourage incentive spirometer use and mobilize patient as tolerated. 6. Okay to discharge home from a pulmonary perspective with follow-up as previously planned IMPRESSIONS: 1. Acute on chronic combined respiratory failure The patient was initially admitted to the intensive care unit with CO2 retention leading to encephalopathy and the need for noninvasive positive pressure ventilatory support. Clinical suspicion for air trapping related to an argument. No signs or symptoms of acute exacerbation at this time. Did educate the patient on pursed lip breathing and dangers of increasing supplemental oxygen randomly. We will complete a 5-day burst. No indication for steroids. Likely okay to be discharged from pulmonary perspective with follow-up as previously planned. 2. History of nonischemic cardiomyopathy/troponin elevation Likely secondary to demand ischemia in the setting of #1. Continue to monitor clinically. 3. Chronic tobacco dependency Despite the end-stage nature of the patient's COPD, she does continue to smoke cigarettes daily. Patient is currently precontemplative. This note was generated with [employer] dictation software. It may contain incorrect words, spelling, and punctuation that were not noted in checking the note before signing. Subjective Subjective Patient did well overnight. Patient was on 2 L nasal cannula with sleep, but overall feels subjectively back to her baseline. Patient is not reporting any significant change in cough. Objective Data Objective Data Vital Signs: Vital Signs Temp Pulse Resp BP Pulse Ox O2 Del Method O2 Flow Rate 36.6 C 79 24 H 129/67 H 97 Nasal Cannula 2 05/30/22 02:00 05/30/22 04:00 05/30/22 02:00 05/30/22 02:00 05/30/22 02:00 05/30/22 02:00 05/30/22 02:00 FiO2 28 05/29/22 04:09 Oxygen Flow Rate (L/min) 2 Oxygen Delivery Method Nasal Cannula Weight: 46.6 kg Body Mass Index (BMI) 18.1 Intake & Output: Intake and Output for Last 24 Hours 05/29/22 05/29/22 05/30/22 00:59 23:59 23:59 Intake Total 240 / 240 Output Total Balance 240 / 240 Medical Nutrition Assessment Dietitian: Malnutrition Criteria Met Start: 05/29/22 09:30 Freq: Status: Active Protocol: Document 05/29/22 09:30 [facility] (Rec: 05/29/22 09:30 [facility] [id number]) Nutrition Malnutrition Evidence of Malnutrition Exists Yes Malnutrition (severe): Chronic Evidenced By Suboptimal Energy Intake ( Moderate),Weight Loss (Severe) ,Physical Changes (Moderate) Clinical Problem Chronic Disease or Condition Related Malnutrition Etiology severe malnutrition related to endstage COPD and inadequate po intake to meet increased energy requirements of COPD Signs/Symptoms as evidenced by 25.1% wt loss and po intake meeting <50% of est nutritional needs x 3 months. Pt with fat/muscle loss per NFPA. Status Active Problem Recommendation Dietitian Recommendations/Changes As medically able, due to signs and symptoms of malnutrition, rec diet as tolerated to liberal Regular w / 8 oz chocolate CIB w/ meals and fortified foods for increased nutrition if consumed. Monitor for s/s of refeeding syndrome. Lab / Micro Data Attestation: I reviewed the patient's lab results. Result Diagrams: 05/30/22 05:10 05/30/22 05:10 Labs: Laboratory Results - last 24 hr 05/28/22 00:10: MRSA (PCR) Negative 05/29/22 11:30: Troponin I High Sens 107 H 05/29/22 11:34: POC Glucose 116 H 05/29/22 16:14: POC Glucose 181 H 05/29/22 22:05: POC Glucose 122 H 05/30/22 05:10: WBC 4.0 L, RBC 3.55 L, Hgb 10.4 L, Hct 33.8 L, MCV 95.2, MCH 29.3, MCHC 30.8 L, RDW Std Deviation 46.4 H, RDW Coeff of Sami 13.1, Plt Count 148 L, MPV 11.6, Immature Gran % (Auto) 0.500, Neut % (Auto) 81.5 H, Lymph % (Auto) 10.0 L, [place] % (Auto) 8.0, Eos % (Auto) 0.0, Baso % (Auto) 0.0, Absolute Neuts (auto) 3.3, Absolute Lymphs (auto) 0.40 L, Nucleated RBC % 0, Differential Comment SCANNED, Diff Path Review November foll 05/30/22 05:10: Sodium 138, Potassium 5.0, Chloride 98, Carbon Dioxide 35.0 H, Anion Gap 5, BUN 19 H, Creatinine 0.42 L, Estim Creat Clear Calc 98.48, Est GFR (MDRD) Af Amer 197, Est GFR (MDRD) Non-Af 163, BUN/Creatinine Ratio 45.6 H, Glucose 125 H, Calcium 8.9, Total Bilirubin 0.40, AST 32, ALT 60 H, Alkaline Phosphatase 57, Total Protein 6.2 L, Albumin 3.2, Globulin 3.0, Albumin/Globulin Ratio 1.1 05/30/22 05:44: POC Glucose 120 H Micro: Microbiology 05/29/22 Unknown Nasal Secretion SARS-CoV-2 & FLU Antigen (Rapid) - Final 05/28/22 00:20 Urine Catheter - Catheter Legionella Antigen - Final 05/28/22 00:20 Urine Catheter - Lundberg Streptococcus pneumoniae Antigen (M - Final Rhythm Strip Rhythm Strip: Sinus Rhythm Rate: 81 Ectopy: None Physical Exam Const alert, oriented x3 and no apparent distress General Appearance: cooperative and frail HEENT normocephalic and head/scalp atraumatic Eyes PERRL, EOMs intact bilaterally and conjunctivae normal Neck supple General: trachea midline Chest Chest: abnormal inspection of the chest kyphotic and scoliotic Resp normal respiratory effort Effort and Inspection: prolonged expiratory phase Auscultation: wheezes throughout and diminished lung sounds; Negative for rales or rhonchi Cardio regular rate, regular rhythm, S1 normal heart sound, S2 normal heart sound, no murmurs, no rub and no gallops GI normal to inspection, nondistended, normoactive bowel sounds Extremity General Extremity: clubbing; Negative for edema Skin Skin Narrative: Bruising over distal upper extremities. Neuro CN's II-XII intact bilaterally, moves all extremities and no focal motor deficits Psych cooperative and affect normal Charges/Coding Visit Charges Inpatient E&M: 65685 Subs Hosp L2
[2022-05-30] MEDS: Ipratropium/Albuterol Sulfate 3 ML AMPUL.NEB INHALATION ×2 (07:09→14:01)
[2022-05-30 07:35] LABS: Bedside Glucose 224 mg/dL (74-106)
--- NOTE | 2022-05-30 08:34 | DCINST_ITS ---
Discharge Instructions Diet Discharge Diet: No restrictions Activity Discharge Activity: Return to Normal Activity Weight Bearing Status: Full weight bearing Follow Up Care Test Results: Test results from this visit will be discussed in further detail at your follow- up appointment, if applicable. Discharge Plan Admission Admit Date/Time: 05/28/22 23:09 Primary Reason for Your Visit: respiratory failure Attending Provider: Steven Valerio Primary Care Provider: Isabel Rae Consulting Providers: Paulette Garrison ; Tri Ingram ; Scottie Enamorado ; Peter Villarreal ; Bladimir Garcia ; Anthony Bradford ; Sapphire Orozco NP ; Chacha Diaz Instructions Additional Instructions / Restrictions: Use oxygen at 2 to 4 liters to maintain pulse ox above 90% Bipap therapy with naps and nightly Discharge Orders/Prescriptions Prescriptions: Continued elderberry fruit 200 mg capsule 200 mg capsule PO albuterol sulfate 2.5 mg /3 mL (0.083 %) solution for nebulization 2.5 mg inhalation Q6HWA.RT Qty: 120 11RF azelastine 205.5 mcg (0.15 %) spray,non-aerosol 1 spray intranasal BID Qty: 30 11RF Rx Instructions: administer into each nostril (DME) wheel chair See Rx Instructions .Route .MEDSUPPLY Qty: 1 0RF Rx Instructions: As directed (DME) Nebulizer See Rx Instructions .ROUTE .MEDSUPPLY Qty: 1 0RF Rx Instructions: As directed nicotine 14 mg/24 hr patch 24 hour 1 patch transdermal Q24H Qty: 28 1RF lisinopril 10 MG tablet 10 mg PO DAILY acetaminophen 500 MG tablet 1,000 mg PO DAILY PRN PRN (Reason: Pain Or Fever) cholecalciferol (vitamin D3) 50,000 UNIT capsule 50,000 unit PO DACOSTA Label Comments: TAKE 1 CAPSULE BY MOUTH ONCE A WEEK prednisone 10 mg tablet 10 mg PO DAILY Qty: 30 0RF Rx Instructions: Take 4 tabs PO daily for 3 days, then 3 tabs daily for 3 days, then 2 tabs daily for 3 days, then 1 tab daily for 3 days tiotropium bromide 2.5 mcg/actuation mist 1 puff inhalation DAILY Qty: 4 2RF Symbicort 160-4.5 mcg/actuation HFA aerosol inhaler 2 puff INHALATION BID Qty: 10.2 11RF Rx Instructions: administer with spacer, rinse mouth after each use Changed albuterol sulfate 90 mcg/actuation HFA aerosol inhaler 1 - 2 puff PO Q4H PRN Qty: 1 6RF Discontinued doxycycline hyclate 100 mg tablet 100 mg PO BID Qty: 20 0RF Referrals / Follow Up: Isabel Rae [Primary Care Provider] - Within 2 Weeks Scottie Enamorado MD [Med Staff - Active Staff] - See Referral Note (at scheduled appointment time) Disposition Disposition (needs filled in before D/C Order can be placed): Home, Self Care
[2022-05-30] MEDS: predniSONE 20 MG Tablet 40 MG PO (08:49)
[2022-05-30] MEDS: guaiFENesin 1,200 MG Tablet 1200 MG PO (08:50)
[2022-05-30] MEDS: Lisinopril 10 MG Tablet PO (08:51)
[2022-05-30] MEDS: Acetaminophen 500 MG Tablet 1000 MG PO (08:52)
--- NOTE | 2022-05-30 09:23 | PCM.DC.SUM ---
Providers Date of Admission: 05/28/22 Date of Discharge: 05/30/22 Primary Care Physician: Dr. Isabel Rae Consultations 05/28/22 23:56 Consult: Onc/Wound/reed repairer Routine Comment: 05/29/22 03:18 Consult: Tool And Fixture Repairer / Pulmonary Medicine Routine Consulting Provider: Pulmonary Medicine emilie Franklin Reason for Consult: Acute on chronic hypoxic and hypercapnic respiratory failure EMERGENT Consult: No MD Notified: Yes Date Notified: 05/29/22 Time Notified: 03:18 Method of Notification: Text Reason For Visit: ACUTE TANVI CHRONIC HYPOCIX AND HYPERCAPNIC Diagnosis Discharge Diagnosis (1) Acute on chronic respiratory failure with hypoxia and hypercapnia: Status: Chronic Code(s): J96.21 - Acute and chronic respiratory failure with hypoxia; J96.22 - Acute and chronic respiratory failure with hypercapnia Plan 1. 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 intake to meet increased energy requirements of COPD as evidenced by 25.1% weight loss and p.o. intake meeting less than 50% of estimated nutritional needs x3 months-patient treated with a liberal regular diet with 8 ounces of chocolate CIB with meals Medications at Discharge Home Medications acetaminophen 500 mg tablet 1,000 mg PO DAILY PRN PRN Pain Or Fever 10/04/18 lisinopril 10 mg tablet 10 mg PO DAILY BP 10/04/18 cholecalciferol (vitamin D3) 1,250 mcg (50,000 unit) capsule 50,000 unit PO DACOSTA supplement 06/17/19 elderberry fruit 200 mg capsule mg PO 12/04/19 albuterol sulfate 2.5 mg/3 mL (0.083 %) solution for nebulization 2.5 mg (3 mL) inhalation Q6HWA.RT ##120 08/20/20 Nebulizer #1 ea 11/23/21 azelastine 205.5 mcg (0.15 %) nasal spray 1 spray intranasal BID #30 mL 11/23/21 wheel chair #1 ea 11/23/21 nicotine 14 mg/24 hr daily transdermal patch 1 patch transdermal Q24H #28 ea 03/01/22 tiotropium bromide 2.5 mcg/actuation mist for inhalation 1 puff inhalation DAILY COPD #4 grams 03/14/22 budesonide-formoterol HFA 160 mcg-4.5 mcg/actuation aerosol inhaler (Symbicort) 2 puff inhalation BID #10.2 grams 04/04/22 albuterol sulfate 90 mcg/actuation aerosol inhaler 1 - 2 puff PO Q4H PRN #1 g 05/30/22 prednisone 10 mg tablet 10 mg PO DAILY #30 tabs 05/30/22 Hospital Course Operations None Procedures None Summary of Care Provided Minutes Spent on Discharge: 31 Hospital Course: This 61-year-old white female was seen in the emergency room at [facility] with lethargy and respiratory distress, patient is on chronic oxygen at home and became obtunded at home approximately 15 minutes prior to arrival in the ER. Work-up in the ER included labs that showed an elevated white blood cell count at 11.5, hemoglobin was 11.8, glucose was elevated at 240, and troponin was elevated. Patient had a chest x-ray which showed no active infiltrates. Patient required BiPAP for stabilization of her pulse ox reading. Patient was admitted to ICU, she was seen in consultation by pulmonary medicine, she was placed on IV corticosteroids and aggressive aerosol treatments, her oxygen requirement dropped and she was finally able to be changed over to nasal cannula oxygen. Patient received antibiotics while in the ICU and these were ultimately stopped prior to discharge. On 05/30/2022, patient was seen and examined: On examination she appeared cachectic and frail, she does not appear to be in any distress. Vital signs as documented. Skin warm and dry and without overt rashes. Neck without JVD, thyroid appears normal, trachea is midline, neck is supple. Lungs clear, decreased breath sounds were noted bilaterally. Heart exam notable for regular rhythm, normal sounds and absence of murmurs, rubs or gallops. Abdomen unremarkable and without evidence of organomegaly, masses, or abdominal aortic enlargement, bowel sounds are present in all 4 quadrants, no abdominal tenderness was noted. Extremities nonedematous, no cyanosis was noted, no clubbing was noted. Neuro: Cranial nerves II through XII are grossly intact, no focal motor deficits were noted, sensation to light touch and pinprick is intact, motor exam 5/5 throughout. Psych: Patient is alert and oriented x3, she does not appear anxious or depressed, she does not appear agitated. On 05/30/2022, patient was seen and examined and felt to be stable for discharge home. Medical Records Data Medical Nutrition Assessment Dietitian: Malnutrition Criteria Met Start: 05/29/22 09:30 Freq: Status: Active Protocol: Document 05/29/22 09:30 [facility] (Rec: 05/29/22 09:30 [facility] [id number]) Nutrition Malnutrition Evidence of Malnutrition Exists Yes Malnutrition (severe): Chronic Evidenced By Suboptimal Energy Intake ( Moderate),Weight Loss (Severe) ,Physical Changes (Moderate) Clinical Problem Chronic Disease or Condition Related Malnutrition Etiology severe malnutrition related to endstage COPD and inadequate po intake to meet increased energy requirements of COPD Signs/Symptoms as evidenced by 25.1% wt loss and po intake meeting <50% of est nutritional needs x 3 months. Pt with fat/muscle loss per NFPA. Status Active Problem Recommendation Dietitian Recommendations/Changes As medically able, due to signs and symptoms of malnutrition, rec diet as tolerated to liberal Regular w / 8 oz chocolate CIB w/ meals and fortified foods for increased nutrition if consumed. Monitor for s/s of refeeding syndrome. Weight / BMI Weight Weight: 46.6 kg Body Mass Index (BMI) 18.1 ABG / Lab / Microbiology Data Result Diagrams: 05/30/22 05:10 05/30/22 05:10 Laboratory: Laboratory Results - last 24 hr 05/28/22 21:38: POC Glucose 224 H 05/29/22 11:30: Troponin I High Sens 107 H 05/29/22 11:34: POC Glucose 116 H 05/29/22 16:14: POC Glucose 181 H 05/29/22 22:05: POC Glucose 122 H 05/30/22 05:10: WBC 4.0 L, RBC 3.55 L, Hgb 10.4 L, Hct 33.8 L, MCV 95.2, MCH 29.3, MCHC 30.8 L, RDW Std Deviation 46.4 H, RDW Coeff of Sami 13.1, Plt Count 148 L, MPV 11.6, Immature Gran % (Auto) 0.500, Neut % (Auto) 81.5 H, Lymph % (Auto) 10.0 L, Blair % (Auto) 8.0, Eos % (Auto) 0.0, Baso % (Auto) 0.0, Absolute Neuts (auto) 3.3, Absolute Lymphs (auto) 0.40 L, Nucleated RBC % 0, Differential Comment SCANNED, Diff Path Review May foll 05/30/22 05:10: Sodium 138, Potassium 5.0, Chloride 98, Carbon Dioxide 35.0 H, Anion Gap 5, BUN 19 H, Creatinine 0.42 L, Estim Creat Clear Calc 98.48, Est GFR (MDRD) Af Amer 197, Est GFR (MDRD) Non-Af 163, BUN/Creatinine Ratio 45.6 H, Glucose 125 H, Calcium 8.9, Total Bilirubin 0.40, AST 32, ALT 60 H, Alkaline Phosphatase 57, Total Protein 6.2 L, Albumin 3.2, Globulin 3.0, Albumin/Globulin Ratio 1.1 05/30/22 05:44: POC Glucose 120 H Microbiology: Microbiology 05/29/22 Unknown Nasal Secretion SARS-CoV-2 & FLU Antigen (Rapid) - Final 05/28/22 00:20 Urine Catheter - Catheter Legionella Antigen - Final 05/28/22 00:20 Urine Catheter - Lundberg Streptococcus pneumoniae Antigen (M - Final D/C Instructions Discharge Diet: No restrictions Weight Bearing Status: Full weight bearing Meaningful Use Info Meaningful Use Diagnoses (Choose all that apply): None applicable Discharge Plan Admission Admit Date/Time: 05/28/22 23:09 Primary Reason for Your Visit: respiratory failure Attending Provider: Steven Valerio Primary Care Provider: Isabel Rae Consulting Providers: Paulette Garrison ; Tri Ingram ; Scottie Enamorado ; Peter Villarreal ; Bladimir Garcia ; Anthony Bradford ; Sapphire Orozco [facility] ; Chacha Diaz Instructions Additional Instructions / Restrictions: Use oxygen at 2 to 4 liters to maintain pulse ox above 90% Bipap therapy with naps and nightly Discharge Orders/Prescriptions Prescriptions: Continued elderberry fruit 200 mg capsule 200 mg capsule PO albuterol sulfate 2.5 mg /3 mL (0.083 %) solution for nebulization 2.5 mg inhalation Q6HWA.RT Qty: 120 11RF azelastine 205.5 mcg (0.15 %) spray,non-aerosol 1 spray intranasal BID Qty: 30 11RF Rx Instructions: administer into each nostril (DME) wheel chair See Rx Instructions .Route .MEDSUPPLY Qty: 1 0RF Rx Instructions: As directed (DME) Nebulizer See Rx Instructions .ROUTE .MEDSUPPLY Qty: 1 0RF Rx Instructions: As directed nicotine 14 mg/24 hr patch 24 hour 1 patch transdermal Q24H Qty: 28 1RF lisinopril 10 MG tablet 10 mg PO DAILY acetaminophen 500 MG tablet 1,000 mg PO DAILY PRN PRN (Reason: Pain Or Fever) cholecalciferol (vitamin D3) 50,000 UNIT capsule 50,000 unit PO DACOSTA Label Comments: TAKE 1 CAPSULE BY MOUTH ONCE A WEEK prednisone 10 mg tablet 10 mg PO DAILY Qty: 30 0RF Rx Instructions: Take 4 tabs PO daily for 3 days, then 3 tabs daily for 3 days, then 2 tabs daily for 3 days, then 1 tab daily for 3 days tiotropium bromide 2.5 mcg/actuation mist 1 puff inhalation DAILY Qty: 4 2RF Symbicort 160-4.5 mcg/actuation HFA aerosol inhaler 2 puff INHALATION BID Qty: 10.2 11RF Rx Instructions: administer with spacer, rinse mouth after each use Changed albuterol sulfate 90 mcg/actuation HFA aerosol inhaler 1 - 2 puff PO Q4H PRN Qty: 1 6RF Discontinued doxycycline hyclate 100 mg tablet 100 mg PO BID Qty: 20 0RF Referrals / Follow Up: Scottie Enamorado MD [Med Staff - Active Staff] - See Referral Note (at scheduled appointment time) Isabel Rae [Primary Care Provider] - Within 2 Weeks Disposition Disposition (needs filled in before D/C Order can be placed): Home, Self Care Charges/Coding Visit Charges Inpatient E&M: 81467 Disch Hosp
--- NOTE | 2022-05-30 09:35 | CASEMGMT ---
RN ANANDA Face to Face with patient for initial transition planning/care coordination assessment. RN CM introduced self and role at [facility]. Patient lying in bed, alert and oriented. Patient willing to participate in assessment and is able to answer all questions appropriately. Care providers, pharmacy, and demographics verified. Patient wishes to discharge home, denies need for home health at this time. Patient states she has no further needs or concerns at this time. CM to follow for discharge planning needs that may arise. PCP: Isabel Rae Specialists: Fei microbiology professor [facility] Prescription Benefit: yes Living Will/HPOA: none LNOK: daughter Living Arrangements: Patient lives with daughter in a single story home with 3 steps and railing to enter the home. Patient states that her daughter and granddaughter assist her with her ADLs. Transportation: daughter DME/HHC: Patient states she has shower chair, grab bars, walker, wheelchair, nebuilzer, pulse ox, and home oxygen with portability through [employer] Per pulmonology notes order is for 3lpm with ambulation. Patient has waiver program but could not recall CM's name. Disposition Plan: Patient to discharge home with family support and follow-up plans in place. Sally CHUNG, RN, CM
[2022-05-30 12:29] LABS: Pathologist Review Reviewed
== END 2022-05-30 18:10 | disposition home or self-care (01) | DRG 189 ==
LOC: ED 22:20 → ICU 23:09
PROVIDERS: Internal Medicine; Admitting Provider Internal Medicine; Emergency Provider Emergency Medicine; Visit Provider Internal Medicine
DX: J96.22 Acute and chronic respiratory failure with hypercapnia (principal); E43 Unspecified severe protein-calorie malnutrition; G93.40 Encephalopathy, unspecified; E87.29 Other acidosis; J44.1 Chronic obstructive pulmonary disease with (acute) exacerbation; I42.8 Other cardiomyopathies; I24.8 Other forms of acute ischemic heart disease; J96.21 Acute and chronic respiratory failure with hypoxia; F17.210 Nicotine dependence, cigarettes, uncomplicated; I10 Essential (primary) hypertension; D72.829 Elevated white blood cell count, unspecified; E55.9 Vitamin D deficiency, unspecified; E78.5 Hyperlipidemia, unspecified; I07.1 Rheumatic tricuspid insufficiency; R53.81 Other malaise; Z79.51 Long term (current) use of inhaled steroids; Z79.2 Long term (current) use of antibiotics; Z66 Do not resuscitate; R73.9 Hyperglycemia, unspecified
CPT/HCPCS: 36600; 51702; 71045; 80048; 80053; 82803; 82962; 83605; 83735; 84100; 84443; 84484; 85025; 87428; 87449; 87633; 87641; 93005; 94002; 94003; 94640; 97802; 99251; 99285; A4216; G0463; J0696; J3475

== ENCOUNTER 2022-07-09 19:18 | Inpatient (IN) | payer MEDICARE, MEDICAID, SELFPAY ==
[2022-07-09] VITALS (11 sets, daily range): BP systolic 87–185; BP diastolic 41–93; PULSE 82–135; RESP 12–19; TEMP 36.3–37; O2SAT 94–99; BMI 17.3
--- NOTE | 2022-07-09 19:21 | EKG12_ITS ---
Test Reason : DYSRHYTHMIA Blood Pressure : / mmHG Vent. Rate : 121 BPM Atrial Rate : 121 BPM P-R Int : 148 ms QRS Dur : 154 ms QT Int : 384 ms P-R-T Axes : 092 074 089 degrees QTc Int : 545 ms Sinus tachycardia Left ventricular hypertrophy with QRS widening Abnormal ECG Confirmed by RADHA BERRY, WESLEY ([id number]), assignment desk editor ZUNILDA BLANCAS ([id number]) on 07/11/2022 12:47:42 PM Referred By: Confirmed By:WESLEY GARCIA MD
--- NOTE | 2022-07-09 19:21 | RAD_ITS ---
INDICATION: sob EXAMINATION/TECHNIQUE: X-RAY - portable upright AP chest x-ray COMPARISON: 05/28/2022 FINDINGS: LINES/DEVICES: None. LUNGS: Stable hyperinflation without infiltrate, consolidation or pleural effusion. MEDIASTINUM AND CARDIOVASCULAR STRUCTURES: Cardiac silhouette not enlarged. Central airways and mediastinal contour are unremarkable. BONES AND SOFT TISSUES: Unremarkable. RAD/Chest 1 View (Portable) IMPRESSION: No radiographic evidence of acute cardiopulmonary disease. COPD. Electronically Signed: Martin Dejesus MD at 20:08 EST ,
[2022-07-09 19:32] LABS: Absolute Lymphocyte Count 3.07 X10^3/uL (0.83-4.51); Absolute Neutrophil Count 4.5 X10^3/uL (2.0-7.7); Basophil# 0.03 X10^3/uL; Basophil% 0.3 % (0-1); Eosinophil# 0.16 X10^3/uL; Eosinophils% 1.9 % (0-5); Hemoglobin 12.3 g/dL (12.0-15.0); Lymphocyte # 3.07 X10^3/ul (0.83-4.51); Lymphocyte % 35.8 % (19-41); Mean Corpuscular Volume 96.7 fL (81-99); Mean Platelet Vol. 10.9 fl (6.2-12.0); Monocyte# 0.79 X10^3/uL; Monocyte% 9.2 % (0-10); NRBC Flagged by Analyzer 0 % (0-5); Neutrophil # 4.49 X10^3/uL (2.7-7.7); Neutrophil % 52.3 % (47-70); Platelet Count 274 K/mm3 (150-450); RBC Distribution Width CV 12.9 % (11.6-14.6); Red Blood Count 4.24 M/mm3 (4.2-5.4); White Blood Count 8.6 K/mm3 (4.4-11.0)
[2022-07-09 19:53] LABS: Anion Gap 9 (5-15); BUN 17 mg/dL (7-18); BUN/Creat Ratio 21.9 RATIO (10-20); Calcium,Total 8.9 mg/dL (8.5-10.1); Chloride 98 mmol/L (98-107); Creatinine, Serum 0.78 mg/dL (0.55-1.02); EST Glomerular Filtration Rate 80 mL/min (>60); Est Glom Filt Rate - Afr Amer 96 mL/min (>60); Estimated Creatinine Clearance 58.42 ml/min; Glucose 269 mg/dL (74-106); Potassium 3.6 mmol/L (3.5-5.1); Sodium Level 138 mmol/L (136-145); Troponin-I HS (w/2H Reflex) 66 pg/mL (3.0-54.0)
[2022-07-09 20:06] LABS: Lactic Acid 6.3 mmol/L (0.4-1.9)
[2022-07-09 20:06] LABS: Allen Test Positive; Base Excess 6 mmol/L (-2 to +2); Bicarbonate 33.3 mmol/L (22-26); Blood Gas Specimen Type ART; Comment 12/6 12 30%; FI02 30; O2 Delivery Device BiPAP; PO2 91 mmHG (75-100); SITE L Radial; SO2 95 % (95-99); Total Carbon Dioxide 36 mmol/L; pCO2 75.6 mmHg (35-45); pH 7.25 (7.35-7.45)
--- NOTE | 2022-07-09 20:36 | ED.RN ---
ed dr consulted about no source of infection and order for antibiotics. dr states she qualifies for sepsis and to continue with current orders. dominguez sprague rn [id number]
--- NOTE | 2022-07-09 20:38 | HP.PCM.HOS_ITS ---
HPI - General General Date of Admission: 07/09/22 Date of Service: 07/09/22 Chief Complaint: Unresponsiveness HPI Narrative KARYNA SALEH, is a 61 F with a significant history of end-stage COPD who presents emergency department with unresponsiveness. Reportedly patient was diaphoretic on arrival. Per her significant other patient is a DO NOT INTUBATE so patient was not intubated. She was placed on the BiPAP with improvement. Her initial ABG showed severely elevated CO2. Patient report that on the day of presentation she was lightheaded. She reports shortness of breath. She reports a dry cough. She denies wheezing. She reported 3 days before presentation she had a flu shot and then felt nauseous after that. [facility] Medical History (Updated 07/09/22 @ 23:[address] Blayne Ochoa MD) Chronic respiratory failure with hypoxia Elevated troponin I level Essential (primary) hypertension History of non-ST elevation myocardial infarction (NSTEMI) (06/21/19) Hyperglycemia Hyperlipidemia Leukocytosis Nicotine dependence Non-ischemic cardiomyopathy DONNA (obstructive sleep apnea) Stage 4 very severe COPD by GOLD classification Home Medications acetaminophen 500 mg tablet 1,000 mg PO DAILY PRN PRN Pain Or Fever 10/04/18 [History Last Taken 06/13/19] lisinopril 10 mg tablet 10 mg PO DAILY BP 10/04/18 [History Last Taken 06/14/19] albuterol sulfate 2.5 mg/3 mL (0.083 %) solution for nebulization 2.5 mg (3 mL) inhalation Q6HWA.RT ##120 08/20/20 [Rx Last Taken Unknown] azelastine 205.5 mcg (0.15 %) nasal spray 1 spray intranasal BID #30 mL 11/23/21 [Rx Last Taken Unknown] nicotine 14 mg/24 hr daily transdermal patch 1 patch transdermal Q24H #28 ea 03/01/22 [Rx Last Taken Unknown] albuterol sulfate 90 mcg/actuation aerosol inhaler 2 inh PO Q4H PRN #8.5 grams 07/06/22 [Rx Last Taken Unknown] budesonide-formoterol HFA 160 mcg-4.5 mcg/actuation aerosol inhaler (Symbicort) 2 puff inhalation BID #10.2 grams 07/06/22 [Rx Last Taken Unknown] escitalopram oxalate 20 mg tablet 20 mg PO DAILY 07/06/22 [History Last Taken Unknown] guaifenesin 1,200 mg tablet, extended release 12 hr 1,200 mg PO Q12H #60 tabs 07/06/22 [Rx Last Taken Unknown] tiotropium bromide 1.25 mcg/actuation mist for inhalation (Spiriva Respimat) 2 puff inhalation DAILY 07/09/22 [History Last Taken Unknown] Allergy/AdvReac Type Severity Reaction Status Date / Time codeine Allergy Rash Verified 07/09/22 19:22 ibuprofen Allergy Rash Verified 07/09/22 19:22 Family History Father Lung cancer Mother Breast cancer Parkinsons disease Surgical History H/O tubal ligation Social History household members: significant other housing: house Smoking Status: Current every day smoker tobacco type: cigarettes alcohol intake: never substance use type: does not use ROS ROS Narrative Pertinent positives and pertinent negatives as noted in HPI. All other systems were reviewed and are negative Vital Signs Vital Signs Vital Signs: 07/09/22 19:18 07/09/22 19:21 07/09/22 19:28 Temperature 97.3 F L 97.3 F L Temperature Source Temporal Temporal Pulse Rate 123 H 123 H Respiratory Rate 17 19 H Respiratory Effort Respiratory Pattern Blood Pressure 182/85 H 185/85 H Blood Pressure Mean 117 118 Pulse Ox 98 98 94 Oxygen Delivery Method Room Air Room Air Bi-pap Fraction of Inspired Oxygen (FIO2) 07/09/22 19:30 07/09/22 19:23 07/09/22 20:19 Temperature Temperature Source Pulse Rate 135 H 93 Respiratory Rate 18 18 Respiratory Effort Labored Accessory Muscle Use Nasal Flaring Respiratory Pattern Tachypnea Normal Normal Blood Pressure Blood Pressure Mean Pulse Ox 95 99 Oxygen Delivery Method Bi-pap Fraction of Inspired Oxygen (FIO2) 30 30 30 Weight Weight: 50.126 kg Body Mass Index (BMI) 17.3 Physical Exam Narrative Physical exam: General: Well-nourished, well-developed. Head: Normocephalic, atraumatic, no tenderness Eyes: Vision is grossly intact. EOMI ENT, no trauma, moist mucous membranes, no rhinorrhea Neck: Nontender, No thyromegaly. CVS: Tachycardic. S1-S2 present. No murmur, gallop or rub. Respiratory : On BiPAP. chest wall nontender, no wheezing Abdomen: Soft, nontender, nondistended, normal bowel sounds, no masses : Deferred Back: Nontender, no CVA tenderness, no midline spinal tenderness. Extremities: Cachectic. Nontender full range of motion, no trauma Skin: Normal color, no trauma, abrasions Neuro: Alert, oriented, cranial nerves II through XII grossly intact. Psychiatry: Normal mood. Normal affect. Not depressed. Not anxious. Results Lab / Micro Data Result Diagrams: 07/09/22 19:25 07/09/22 19:25 Labs: Laboratory Results - last 24 hr 07/09/22 19:25: WBC 8.6, RBC 4.24, Hgb 12.3, Hct 41.0, MCV 96.7, MCH 29.0, MCHC 30.0 L, RDW Std Deviation 46.0 H, RDW Coeff of Sami 12.9, Plt Count 274, MPV 10.9, Immature Gran % (Auto) 0.500, Neut % (Auto) 52.3, Lymph % (Auto) 35.8, [place] % (Auto) 9.2, Eos % (Auto) 1.9, Baso % (Auto) 0.3, Absolute Neuts (auto) 4.5, Absolute Lymphs (auto) 3.07, Nucleated RBC % 0 07/09/22 19:25: Sodium 138, Potassium 3.6, Chloride 98, Carbon Dioxide 31.0, Anion Gap 9, BUN 17, Creatinine 0.78, Estim Creat Clear Calc 58.42, Est GFR (MDR D) Af Amer 96, Est GFR (MDRD) Non-Af 80, BUN/Creatinine Ratio 21.9 H, Glucose 269 H, Calcium 8.9, Troponin I High Sens 66 H 07/09/22 19:25: Lactic Acid 6.3 H* Micro: Microbiology 07/09/22 19:27 Nasal Secretion SARS-CoV-2 & FLU Antigen (Rapid) - Final ABG Data ABG results: ABG 07/09/22 19:58 Specimen Type ART Sample Site L Radial pH 7.25 L Bicarbonate Actual 33.3 H Total CO2 36 Base Excess 6 H O2 Saturation 95 O2 % 30 ABG pCO2 75.6 H* ABG pO2 91 Arnoldo Test Positive O2 Delivery Device BiPAP Crit Call To/Read Back Yes Blood Gas Notified Whom Refugio Clinical Comments 06/28 12 30% Radiology Impression Chest X-Ray 07/09/22 19:21 IMPRESSION: No radiographic evidence of acute cardiopulmonary disease. COPD. Electronically Signed: Martin Dejesus MD at 20:08 EST , Assessment & Plan Assessment/Plan (1) Respiratory failure: QUALIFIERS: Chronicity: acute on chronic Respiratory failure complication: hypercapnia Qualified Code(s): J96.22 - Acute and chronic respiratory failure with hypercapnia (2) Protein calorie malnutrition: (3) Elevated troponin: PLAN: Plan Acute on chronic hypercapnic respiratory failure Initial ABG on BiPAP showed pH of 7.25. HCO3 of 33.3. PCO2 was 75.6. PO2 was 91. Patient was weaned off BiPAP and placed on nasal cannula oxygen at 2.5 L at the ED. Continue oxygen supplementation, titrate as necessary. Initial plan was to take patient to the intensive care unit but with considerable improvement at the emergency department and off BiPAP will admit patient to [facility] with telemetry. Patient met 1 of SIRS criteria as patient was tachycardic. CXR independently reviewed confirms no acute cardiopulmonary process. EKG independently reviewed confirms sinus tach with LVH. Old records reviewed showed Scheduled DuoNeb ordered Albuterol as needed ordered Solu-Medrol ordered Received vancomycin and Zosyn in the emergency department. Urinalysis, urine culture ordered. Blood culture ordered emergency department, follow-up. Would discontinue vancomycin at this time. Zosyn continued. BMP and CBC Severe protein calorie malnutrition BMI of 7.3 kg per metered squared Cachectic. Ensure protein plus ordered. Nutrition consult. Elevated troponin Initial troponin was mildly elevated. Repeat troponin was even higher. However patient does not have chest pain. Elevated troponin likely from type II DC. C ontinue to trend. Admit to [facility] on telemetry. Hypotension Initial blood pressure was severely elevated at 182/85. Repeat blood pressure was 90/41. Patient received IV fluid bolus. Her blood pressure appropriately oren. Hold home lisinopril. Trend blood pressures. Lactic acidosis Lactic acid of 6.3. Sepsis ruled out. Likely hypoxemia. Trend lactic acid. Hypoglycemia Blood glucose on presentation was 269. Likely stress reaction. Accu-Chek with correction scale insulin ordered. Check A1c. Tobacco abuse Counseled Declined nicotine patch. DVT prophylaxis: Subcutaneous Lovenox ordered. Charges/Coding Visit Charges Inpatient E&M: 21645 Init Hosp L3
[2022-07-09] MEDS: 0.9% Normal Saline 1,000 ML 999 ML IV ×2 (20:54→22:12)
[2022-07-09 21:29] LABS: Reflex Troponin-HS? (from REC) Y
[2022-07-09] MEDS: Ipratropium/Albuterol Sulfate 3 ML AMPUL.NEB INHALATION (21:46)
[2022-07-09] MEDS: MethylPREDNISolone 125 MG/2 ML Vial IV (22:01)
--- NOTE | 2022-07-09 22:02 | CPS ---
Pt. wanted a break from BiPAP at this time. Respiratory status has significantly improved. Pt. on 2 1/2 L NC at this time with appropriate oxygen saturations.
[2022-07-09 22:47] LABS: Troponin-I HS 80 pg/mL (3.0-54.0)
--- NOTE | 2022-07-09 22:53 | EX.ED.DYSGE1 ---
HPI History of Present Illness Chief Complaint: Unresponsive Informant: spouse/S.O. Narrative Narrative: 61-year-old female presenting unresponsive. Per her significant other she was doing well until few hours ago. She began having difficulty breathing and became unresponsive. He then drove her to the emergency department. On arrival she minimally opens her eyes to voice. She is diaphoretic. She is unable to provide history. Prior similar symptoms: Yes Recent Illness/Hospitalization: No PFSH [facility] Medical History (Updated 07/09/22 @ 23:[address] Yeni Huff MD) Chronic respiratory failure with hypoxia Elevated troponin I level Essential (primary) hypertension History of non-ST elevation myocardial infarction (NSTEMI) (06/21/19) Hyperglycemia Hyperlipidemia Leukocytosis Nicotine dependence Non-ischemic cardiomyopathy DONNA (obstructive sleep apnea) Stage 4 very severe COPD by GOLD classification Home Medications acetaminophen 500 mg tablet 1,000 mg PO DAILY PRN PRN Pain Or Fever 10/04/18 [History Last Taken 06/13/19] lisinopril 10 mg tablet 10 mg PO DAILY BP 10/04/18 [History Last Taken 06/14/19] albuterol sulfate 2.5 mg/3 mL (0.083 %) solution for nebulization 2.5 mg (3 mL) inhalation Q6HWA.RT ##120 08/20/20 [Rx Last Taken Unknown] azelastine 205.5 mcg (0.15 %) nasal spray 1 spray intranasal BID #30 mL 11/23/21 [Rx Last Taken Unknown] nicotine 14 mg/24 hr daily transdermal patch 1 patch transdermal Q24H #28 ea 03/01/22 [Rx Last Taken Unknown] albuterol sulfate 90 mcg/actuation aerosol inhaler 2 inh PO Q4H PRN #8.5 grams 07/06/22 [Rx Last Taken Unknown] budesonide-formoterol HFA 160 mcg-4.5 mcg/actuation aerosol inhaler (Symbicort) 2 puff inhalation BID #10.2 grams 07/06/22 [Rx Last Taken Unknown] escitalopram oxalate 20 mg tablet 20 mg PO DAILY 07/06/22 [History Last Taken Unknown] guaifenesin 1,200 mg tablet, extended release 12 hr 1,200 mg PO Q12H #60 tabs 07/06/22 [Rx Last Taken Unknown] tiotropium bromide 1.25 mcg/actuation mist for inhalation (Spiriva Respimat) 2 puff inhalation DAILY 07/09/22 [History Last Taken Unknown] Allergy/AdvReac Type Severity Reaction Status Date / Time codeine Allergy Rash Verified 07/09/22 19:22 ibuprofen Allergy Rash Verified 07/09/22 19:22 Family History Father Lung cancer Mother Breast cancer Parkinsons disease Surgical History H/O tubal ligation Social History household members: significant other housing: house Smoking Status: Current every day smoker tobacco type: cigarettes alcohol intake: never substance use type: does not use ROS ROS ED Review of Systems ROS Unobtainable: other Details: Unable to obtain due to medical condition Constitutional Constitutional ED: Denies fever(s) EXAM Physical Exam Const Vital Signs: 07/09/22 19:18 07/09/22 19:21 07/09/22 19:28 Temperature 97.3 F L 97.3 F L Temperature Source Temporal Temporal Pulse Rate 123 H 123 H Respiratory Rate 17 19 H Respiratory Effort Respiratory Pattern Blood Pressure 182/85 H 185/85 H Blood Pressure Mean 117 118 Pulse Ox 98 98 94 Oxygen Delivery Method Nasal Cannula Room Air Bi-pap Oxygen Flow Rate (L/min) 5 Fraction of Inspired Oxygen (FIO2) 07/09/22 19:30 07/09/22 19:23 07/09/22 20:19 Temperature Temperature Source Pulse Rate 135 H 93 Respiratory Rate 18 18 Respiratory Effort Labored Accessory Muscle Use Nasal Flaring Respiratory Pattern Tachypnea Normal Normal Blood Pressure Blood Pressure Mean Pulse Ox 95 99 Oxygen Delivery Method Bi-pap Oxygen Flow Rate (L/min) Fraction of Inspired Oxygen (FIO2) 30 30 30 07/09/22 21:01 Temperature Temperature Source Pulse Rate 97 Respiratory Rate 17 Respiratory Effort Respiratory Pattern Blood Pressure 90/41 L Blood Pressure Mean 57 Pulse Ox 97 Oxygen Delivery Method Room Air Oxygen Flow Rate (L/min) Fraction of Inspired Oxygen (FIO2) Positive well nourished and well developed General Appearance ED: well developed HEENT Reports normocephalic and head/scalp atraumatic Eyes PERRL and EOMs intact bilaterally Neck supple General: Negative for tenderness Chest Wall inspection of chest normal Resp Auscultation: diminished lung sounds Cardio regular rhythm Rate: tachycardic GI non-tender and non-distended Palpation: soft; Negative for guarding or rebound tenderness present no CVA tenderness Extremity normal to inspection Neuro Sensorium / Orientation: alert and lethargic Psych mental status grossly normal Skin no rashes or lesions noted MDM MDM MDM Narrative Medical decision making narrative: Per her significant other she does not want to be intubated. She is minimally responsive so BiPAP was initiated. She did significantly improve with BiPAP. Her PCO2 was 75.6. CBC, chemistries are unremarkable. Troponin is 66. Lactic acid 6.3. She was given 30 cc/kg bolus of IV fluids. She was given Zosyn and vancomycin. Blood cultures were sent prior to antibiotics. Chest x-ray read by myself and radiology shows COPD. On multiple reevaluations patient is much improved requesting for BiPAP to be removed. She is now tolerating nasal cannula oxygen. Discussed with hospitalist for admission. Lab Data Attestation: I reviewed the patient's lab results. Labs: Laboratory Results - last 24 hr 07/09/22 07/09/22 07/09/22 19:25 19:25 19:25 WBC 8.6 RBC 4.24 Hgb 12.3 Hct 41.0 MCV 96.7 MCH 29.0 MCHC 30.0 L RDW Std Deviation 46.0 H RDW Coeff of Sami 12.9 Plt Count 274 MPV 10.9 Immature Gran % (Auto) 0.500 Neut % (Auto) 52.3 Lymph % (Auto) 35.8 Butts % (Auto) 9.2 Eos % (Auto) 1.9 Baso % (Auto) 0.3 Absolute Neuts (auto) 4.5 Absolute Lymphs (auto) 3.07 Nucleated RBC % 0 Sodium 138 Potassium 3.6 Chloride 98 Carbon Dioxide 31.0 Anion Gap 9 BUN 17 Creatinine 0.78 Estim Creat Clear Calc 58.42 Est GFR (MDRD) Af Amer 96 Est GFR (MDRD) Non-Af 80 BUN/Creatinine Ratio 21.9 H Glucose 269 H Lactic Acid 6.3 H* Calcium 8.9 Troponin I High Sens 66 H ABG Data ABG results: ABG 07/09/22 19:58 Specimen Type ART Sample Site L Radial pH 7.25 L Bicarbonate Actual 33.3 H Total CO2 36 Base Excess 6 H O2 Saturation 95 O2 % 30 ABG pCO2 75.6 H* ABG pO2 91 Arnoldo Test Positive O2 Delivery Device BiPAP Crit Call To/Read Back Yes Blood Gas Notified Whom Refugio Clinical Comments 06/28 12 30% Radiography Chest X-Ray - ED: 1 View, Read by ED Physician and Read by Radiologist Diagnostic Testing: Clinical Impression(s) from Imaging Studies Chest X-Ray 07/09/22 19:21 IMPRESSION: No radiographic evidence of acute cardiopulmonary disease. COPD. Electronically Signed: Martin Dejesus MD at 20:08 EST , EKG Initial EKG: Attestation: I personally reviewed and interpreted this EKG as follows: Interpretation: Sinus Tachycardia Critical Care Time Critical care time (excluding procedures): 30-74 minutes Discharge Plan Triage Chief Complaint: Unresponsive ED Provider: Yeni Huff Dx/Rx/DC Orders Clinical Impression: Acute hypercapnic respiratory failure Primary Care Provider: Isabel Rae Disposition Disposition: Acute Care [facility]
[2022-07-09 23:29] LABS: Reflex Lactate? Y
[2022-07-10] VITALS (31 sets, daily range): BP systolic 107–162; BP diastolic 58–114; PULSE 77–164; RESP 12–24; TEMP 36.5–36.9; O2SAT 93–100; BMI 16.6
--- NOTE | 2022-07-10 01:12 | PCM.RX.CS ---
Consult Pharmacy has been consulted to manage selected antiobiotic: Vancomycin Type of Consult: New start Suspected Infection: Pneumonia Labs: Sodium 138 mmol/L (136-145) 07/09/22 19:25 Potassium 3.6 mmol/L (3.5-5.1) 07/09/22 19:25 Chloride 98 mmol/L (98-107) 07/09/22 19:25 Carbon Dioxide 31.0 mmol/L (21.0-32.0) 07/09/22 19:25 Anion Gap 9 (5-15) 07/09/22 19:25 BUN 17 mg/dL (7-18) 07/09/22 19:25 Creatinine 0.78 mg/dL (0.55-1.02) 07/09/22 19:25 Est GFR (MDRD) Af Amer 96 mL/min (>60) 07/09/22 19:25 Est GFR (MDRD) Non-Af 80 mL/min (>60) 07/09/22 19:25 BUN/Creatinine Ratio 21.9 RATIO (10-20) H 07/09/22 19:25 Glucose 269 mg/dL (74-106) H 07/09/22 19:25 Microbiology: Microbiology 07/09/22 19:27 Nasal Secretion SARS-CoV-2 & FLU Antigen (Rapid) - Final Weight used for dosin.9 kg Estimated Creatinine Clearance: 55.9 Goal Trough: 15-20 mcg/mL Pharmacy Plan for Drug Dosing: Pharmacy Service will continue to monitor and adjust dosing as required. Medications Vancomycin IV-PHARMACY TO DOSE (1 each/ Sodium Chloride) 500 mls @ 250 mls/hr IV X1 PRN; Protocol PRN Reason: Rx to Dose Discontinued Medications Vancomycin HCl 1,250 mg/ (Sodium Chloride) 275 mls @ 167 mls/hr IV X1 ONE Stop: 07/09/22 21:58 Last Admin: 07/09/22 23:51 Dose: Infused Follow-Up Labs: Trough Vancomycin Labs to be done on [date and time ordered]: 07/11 @ 8306
[2022-07-10 01:21] LABS: Allen Test Positive; Base Excess 5 mmol/L (-2 to +2); Bicarbonate 30.7 mmol/L (22-26); Blood Gas Specimen Type ART; O2 Delivery Device Cannula; PO2 87 mmHG (75-100); SITE L Radial; SO2 96 % (95-99); Total Carbon Dioxide 32 mmol/L; pCO2 53.4 mmHg (35-45); pH 7.37 (7.35-7.45)
[2022-07-10] MEDS: 0.9% Normal Saline 1,000 ML 75 ML IV (01:34)
[2022-07-10] MEDS: 0.9% Saline Lock 10 ML Syringe IV ×5 (01:34→21:35)
[2022-07-10] MEDS: Ipratropium/Albuterol Sulfate 3 ML AMPUL.NEB INHALATION ×4 (01:37→20:23)
[2022-07-10] MEDS: guaiFENesin 1,200 MG Tablet 1200 MG PO ×2 (01:41→10:31)
[2022-07-10 02:00] LABS: Lactic Acid 0.5 mmol/L (0.4-1.9)
--- NOTE | 2022-07-10 02:15 | EKG12_ITS ---
Test Reason : EB Blood Pressure : / mmHG Vent. Rate : 149 BPM Atrial Rate : 149 BPM P-R Int : 122 ms QRS Dur : 092 ms QT Int : 258 ms P-R-T Axes : 084 064 059 degrees QTc Int : 406 ms Sinus tachycardia with occasional Premature ventricular complexes Minimal voltage criteria for LVH, may be normal variant ( Sokolow-Pinto ) Nonspecific ST abnormality Abnormal ECG When compared with ECG of 10-JUL-2022 02:08, MANUAL COMPARISON REQUIRED, DATA IS UNCONFIRMED Confirmed by RADHA BERRY, WESLEY ([id number]), makeup editor ZUNILDA BLANCAS ([id number]) on 07/12/2022 8:34:21 AM Referred By: HERI Confirmed By:WESLEY GARCIA MD
--- NOTE | 2022-07-10 02:16 | EKG12_ITS ---
Test Reason : DYSRHYTHMIA Blood Pressure : / mmHG Vent. Rate : 162 BPM Atrial Rate : 133 BPM P-R Int : 000 ms QRS Dur : 086 ms QT Int : 288 ms P-R-T Axes : 000 075 -83 degrees QTc Int : 472 ms Atrial fibrillation Voltage criteria for left ventricular hypertrophy ST & T wave abnormality, consider inferolateral ischemia Abnormal ECG Confirmed by AAMIR BERRY, MAYUR ([id number]), clinical editor ZUNILDA BLANCAS ([id number]) on 07/13/2022 10:53:16 AM Referred By: SERVANDO Confirmed By:MAYUR RUTLEDGE MD
[2022-07-10] MEDS: dilTIAZem 25 MG/5 ML Vial 10 MG IV BOLUS (02:20)
--- NOTE | 2022-07-10 02:44 | PCM.PN.BLA ---
Progress Note Rapid response: Patient oxygen saturation dropped to about 50s. Patient was transitioned eventually to BiPAP. Patient tachycardic. EKG showed atrial fibrillation. Patient given Cardizem bolus. Systolic blood pressure below 90. Discussed with patient for ICU transfer. Patient declined ICU transfer. Patient agreeable to PCU stepdown. Will transfer patient to PCU stepdown.
--- NOTE | 2022-07-10 02:47 | ECHOD_ITS ---
Reason For Study: ATRIAL FIB-FLUTTER Procedure This was a 2D Doppler, Color Flow transthoracic echocardiogram. The study was technically difficult. Exam performed portable in ICU/CCU. Left Ventricle Normal LV size. The estimated ejection fraction is 40 %. There is mild global hypokinesis of the left ventricle. Right Ventricle Normal RV size. Normal systolic function. Atria Normal left atrium. Normal right atrium. Mitral Valve Normal mitral valve. Mild-Moderate (1-2+) eccentric mitral valve insufficiency. Tricuspid Valve Normal tricuspid valve. Aortic Valve Trisinus/trileaflet aortic valve. Mild focal aortic valve calcification. Pulmonic Valve Normal pulmonic valve. Great Vessels Normal aortic root. The pulmonary artery is normal size. Normal inferior vena cava. Pericardium/Pleural No pericardial effusion. MMode/2D Measurements & Calculations LVIDd: 5.2 cm IVSd: 0.80 cm Ao root diam: 3.1 cm LVIDs: 4.6 cm LVPWd: 0.85 cm RVDd: 3.8 cm FS: 12.1 % LAV(MOD-bp): 48.0 ml LVAd ap4: 33.0 cm2 SV(MOD-sp4): 31.8 ml LAV(MOD-bp) Indexed: 30.6 ml/m2 LVLd ap4: 7.9 cm LAV(MOD-sp2): 48.6 ml EDV(MOD-sp4): 114.3 ml LAV(MOD-sp4): 42.0 ml EDV(sp4-el): 116.9 ml LVAs ap4: 25.6 cm2 LVLs ap4: 6.7 cm ESV(MOD-sp4): 82.5 ml ESV(sp4-el): 83.4 ml EF(MOD-sp4): 27.8 % EF(sp4-el): 28.6 % SV(sp4-el): 33.5 ml LA A4 area: 14.9 cm2 LA dimension(2D): 3.7 cm RA A4 area: 10.8 cm2 Doppler Measurements & Calculations Ao V2 max: 115.5 cm/sec LV V1 max: 78.9 cm/sec PA V2 max: 74.0 cm/sec Ao max P.4 mmHg LV V1 max P.5 mmHg TR max umair: 344.6 cm/sec TR max P.5 mmHg ECHO/Echo Complete Interpretation Summary Normal LV size. The estimated ejection fraction is 40 %. There is mild global hypokinesis of the left ventricle. Mild-Moderate (1-2+) eccentric mitral valve insufficiency. Ordering Physician: Blayne Ochoa Referring Physician: TONE RUSSO Performed By: Isidra Stallings RDCS
[2022-07-10] MEDS: Potassium Chloride 40 MEQ in 0.9% Normal Saline 1,000 ML 100 MEQ IV ×2 (03:20→14:30)
[2022-07-10 03:21] LABS: Troponin-I HS 99 pg/mL (3.0-54.0)
--- NOTE | 2022-07-10 03:46 | NURSING ---
at 0150, pt began c/o diaphoresis and difficulty breathing. O2 desatting to 70s. increased O2 on NC but pt continued to desat. HR increased to 140s. attempted to place on venti-mask without improvement to symptoms and O2 at 50%. [employer]ST[employer]ER called at this time due to respiratory distress and change to level of consciousness. pt placed on bipap with improvement to O2 levels. HR remained tachy in the 170s. x1 dose of cardizem IV push given, see SEP. pt to transfer to PCU
[2022-07-10] MEDS: Enoxaparin 60 MG/0.6 ML Syringe 50 MG SC ×3 (03:55→21:30)
[2022-07-10 04:01] LABS: Magnesium 2.1 mg/dL (1.6-2.6); Thyroid Stim Hormone (TSH) 0.28 uIU/mL (0.358-3.74)
[2022-07-10 05:41] LABS: Mucous, Urine 0 SEEN /hpf (<or=2+); Squamous Epithelial Cells - UA 0 SEEN /hpf (5-10); White Blood Cells 0 SEEN /hpf (0-5)
[2022-07-10 05:42] LABS: Color, Urine Yellow (Yellow); Glucose, Dipstick Normal (Normal); Ketone-Dipstick Negative (Negative); Leukocyte Esterase-Dipstick Negative /ul (Negative); Nitrite-Dipstick Negative (Negative); Occult Blood-Urine 25 /ul (Negative); Protein-Dipstick 15 mg/dl (Negative); Urine Bilirubin Dipstick Negative (Negative); Urine Clarity Clear (Clear); Urine Urobilinogen Normal (Normal)
[2022-07-10 06:30] LABS: Bacteria RARE /hpf (None Seen); Red Blood Cells-Urine 0-5 SEEN /hpf (0-5)
[2022-07-10 07:00] LABS: Bedside Glucose 118 mg/dL (74-106)
--- NOTE | 2022-07-10 08:51 | PN.HOSP_ITS ---
Subjective Subjective 61-year-old lady with history of COPD who continues to smoke presented to the emergency department with progressive shortness of breath and assessment of acute on chronic hypercapnic respiratory failure made placed on noninvasive ventilation and admitted to a monitored bed Objective Data Objective Data Vital Signs: Vital Signs Temp Pulse Resp BP Pulse Ox O2 Del Method O2 Flow Rate 98.0 F 87 20 H 107/73 99 Bi-pap 2 07/10/22 03:00 07/10/22 07:35 07/10/22 07:35 07/10/22 03:00 07/10/22 07:35 07/10/22 03:48 07/10/22 01:37 FiO2 25 07/10/22 07:35 Oxygen Flow Rate (L/min) 2 Oxygen Delivery Method Bi-pap Weight: 49.3 kg Body Mass Index (BMI) 16.6 Intake & Output: Intake and Output for Last 24 Hours 07/08/22 07/09/22 07/10/22 23:59 23:59 23:59 Intake Total 1874 Balance 1874 Lab / Micro Data Result Diagrams: 07/09/22 19:25 07/09/22 19:25 Labs: Laboratory Results - last 24 hr 07/09/22 19:25: WBC 8.6, RBC 4.24, Hgb 12.3, Hct 41.0, MCV 96.7, MCH 29.0, MCHC 30.0 L, RDW Std Deviation 46.0 H, RDW Coeff of Sami 12.9, Plt Count 274, MPV 10.9, Immature Gran % (Auto) 0.500, Neut % (Auto) 52.3, Lymph % (Auto) 35.8, Cavalier % (Auto) 9.2, Eos % (Auto) 1.9, Baso % (Auto) 0.3, Absolute Neuts (auto) 4.5, Absolute Lymphs (auto) 3.07, Nucleated RBC % 0 07/09/22 19:25: Sodium 138, Potassium 3.6, Chloride 98, Carbon Dioxide 31.0, Anion Gap 9, BUN 17, Creatinine 0.78, Estim Creat Clear Calc 58.42, Est GFR (MDRD) Af Amer 96, Est GFR (MDRD) Non-Af 80, BUN/Creatinine Ratio 21.9 H, Glucose 269 H, Calcium 8.9, Troponin I High Sens 66 H 07/09/22 19:25: Lactic Acid 6.3 H* 07/09/22 21:42: Troponin I High Sens 80 H 07/10/22 01:00: Urine Color Yellow, Urine Clarity Clear, Urine pH 7.0, Ur Specific Marceline 1.010, Urine Protein 15 H, Urine Glucose (UA) Normal, Urine Ketones Negative, Urine Occult Blood 25 H, Urine Nitrite Negative, Urine Bilirubin Negative, Urine Urobilinogen Normal, Ur Leukocyte Esterase Negative, Urine RBC 0-5 SEEN, Urine WBC 0 SEEN, Ur Squamous Epith Cells 0 SEEN, Urine Bacteria RARE, Urine Mucus 0 SEEN 07/10/22 01:15: Magnesium 2.1, TSH 0.28 L 07/10/22 01:15: Troponin I High Sens 99 H 07/10/22 01:22: Lactic Acid 0.5 07/10/22 06:34: POC Glucose 118 H Micro: Microbiology 07/09/22 19:27 Nasal Secretion SARS-CoV-2 & FLU Antigen (Rapid) - Final ABG Data ABG results: ABG 07/09/22 07/10/22 07/10/22 19:58 01:15 01:15 Specimen Type ART ART Cancelled Sample Site L Radial L Radial Cancelled pH 7.25 L 7.37 Cancelled Bicarbonate Actual 33.3 H 30.7 H Cancelled Total CO2 36 32 Cancelled Base Excess 6 H 5 H Cancelled O2 Saturation 95 96 Cancelled O2 % 30 Cancelled ABG pCO2 75.6 H* 53.4 H Cancelled ABG pO2 91 87 Cancelled Arnoldo Test Positive Positive Cancelled Respiration Rate Cancelled O2 Delivery Device BiPAP Cannula Cancelled Liter Flow 2.0 Cancelled Minute Volume Cancelled Vent Mode Cancelled Inspiratory Time Cancelled Expiratory Time Cancelled Tidal Volume Cancelled Mean Airway Pressure Cancelled POC PEEP Cancelled Peak Inspir Pressure Cancelled POC Pressure Suppt Cancelled Pressure Control Cancelled Pressure High Cancelled Pressure Low Cancelled Time High Cancelled Time Low Cancelled EPAP Cancelled IPAP Cancelled Blood Gas Comments Cancelled Crit Call To/Read Back Yes Cancelled Blood Gas Notified Whom Southern Cancelled Blood Gas Notified Time Cancelled Clinical Comments 06/28 12 30% Cancelled 07/10/22 01:15 Specimen Type ART Sample Site L Radial pH 7.37 Bicarbonate Actual 30.7 H Total CO2 32 Base Excess 5 H O2 Saturation 96 O2 % ABG pCO2 53.4 H ABG pO2 87 Arnoldo Test Positive Respiration Rate O2 Delivery Device Cannula Liter Flow 2.0 Minute Volume Vent Mode Inspiratory Time Expiratory Time Tidal Volume Mean Airway Pressure POC PEEP Peak Inspir Pressure POC Pressure Suppt Pressure Control Pressure High Pressure Low Time High Time Low EPAP IPAP Blood Gas Comments Crit Call To/Read Back Blood Gas Notified Whom Blood Gas Notified Time Clinical Comments Radiography Diagnostic Testing: Radiology Impression Chest X-Ray 07/09/22 19:21 IMPRESSION: No radiographic evidence of acute cardiopulmonary disease. COPD. Electronically Signed: Martin Dejesus MD at 20:08 EST , Physical Exam Narrative GENERAL: Dyspneic at rest, on BiPAP HEENT: Atraumatic; normocephalic EYES; Anicteric, Normal Conjunctiva NECK; supple, normal thyroid, RESPIRATORY: Diminished to auscultation CARDIOVASCULAR: Regular S1 S2, GI: soft, normoactive bowel sounds, : No Renal angle tenderness; EXTREMITIES: No edema, no clubbing, MUSCULOSKELETAL: no muscle wasting NEURO: Awake; no lateralizing signs. SKIN: No Rash PSYCH; Flat affect Assessment & Plan Assessment/Plan (1) Respiratory failure: QUALIFIERS: Chronicity: acute on chronic Respiratory failure complication: hypercapnia Qualified Code(s): J96.22 - Acute and chronic respiratory failure with hypercapnia (2) Protein calorie malnutrition: (3) Elevated troponin: PLAN: Plan 61-year-old lady with history of COPD who continues to smoke presented to the emergency department with progressive shortness of breath and assessment of acute on chronic hypercapnic respiratory failure made placed on noninvasive ventilation and admitted to a monitored bed 1.Acute on chronic hypercapnic respiratory failure (present on admission) ? This is secondary to COPD with acute exacerbation admitted to a monitored bed where patient is currently being managed 2. COPD with acute exacerbation -admitted to monitored bed, patient placed on noninvasive ventilation via BiPAP, initiated systemic steroid as well as antibiotic therapy. Rapid flu for COVID and influenza came back negative however ordered viral respiratory panel to rule out other possible viral etiology. 3. Elevated troponin ? Secondary to demand ischemia we will monitor 4. Tobacco dependence - Counseled on cessation, offered nicotine patch for tobacco cravings 5. Lactic acidosis ? Sepsis ruled out this was attributed to patient increased work of breathing from her hypoxia and hypercapnia 6. Severe protein calorie malnutrition ? Secondary to pulmonary cachexia consult placed to dietitian 7. Ischemic cardiomyopathy ? Echo obtained on 06/20/2019 demonstrated EF of 45%. Repeat echo ordered 8. DVT prophylaxis ? SC Lovenox Charges/Coding Visit Charges Inpatient E&M: 21400 Subs Hosp L3
[2022-07-10 09:08] LABS: Absolute Lymphocyte Count 0.25 X10^3/uL (0.83-4.51); Absolute Neutrophil Count 1.6 X10^3/uL (2.0-7.7); Hematocrit 32.8 % (37-47); Hemoglobin 10.4 g/dL (12.0-15.0); Lymphocyte # 0.25 X10^3/ul (0.83-4.51); Lymphocyte % 13.2 % (19-41); Mean Corp Hgb Conc 31.7 g/dL (32-36); Mean Corpuscular Volume 94.5 fL (81-99); Mean Platelet Vol. 10.7 fl (6.2-12.0); Monocyte# 0.04 X10^3/uL; Monocyte% 2.1 % (0-10); NRBC Flagged by Analyzer 0 % (0-5); Neutrophil # 1.59 X10^3/uL (2.7-7.7); Neutrophil % 84.2 % (47-70); POSITIVE DIFFERENTIAL YES; Platelet Count 159 K/mm3 (150-450); RBC Distribution Width CV 12.8 % (11.6-14.6); RBC Distribution Width SD 44.2 fl (35.1-43.9); Red Blood Count 3.47 M/mm3 (4.2-5.4); White Blood Count 1.9 K/mm3 (4.4-11.0)
[2022-07-10 09:26] LABS: Anion Gap 2 (5-15); BUN 15 mg/dL (7-18); BUN/Creat Ratio 41.7 RATIO (10-20); Calcium,Total 8.4 mg/dL (8.5-10.1); Chloride 106 mmol/L (98-107); Creatinine, Serum 0.36 mg/dL (0.55-1.02); EST Glomerular Filtration Rate 193 mL/min (>60); Est Glom Filt Rate - Afr Amer 234 mL/min (>60); Estimated Creatinine Clearance 124.49 ml/min; Glucose 124 mg/dL (74-106); Potassium 4.1 mmol/L (3.5-5.1); Sodium Level 139 mmol/L (136-145)
[2022-07-10 09:27] LABS: Hemoglobin A1c 5.5 % (3.8-5.6)
[2022-07-10 09:52] LABS: Differential Indicated SCAN CRITERIA MET
[2022-07-10 09:53] LABS: Differential Comment SCANNED
[2022-07-10] MEDS: Azelastine HCl NASAL.SRY 1 SPRAY NASAL (10:28)
[2022-07-10] MEDS: Ensure Plus High Protein 120 ML LIQUID PO (10:30)
[2022-07-10] MEDS: Escitalopram Oxalate 20 MG Tablet PO (10:31)
[2022-07-10] MEDS: Acetaminophen 500 MG Tablet 1000 MG PO (10:36)
[2022-07-10 12:00] LABS: Bedside Glucose 140 mg/dL (74-106)
[2022-07-10 16:50] LABS: Bedside Glucose 138 mg/dL (74-106)
--- NOTE | 2022-07-10 17:18 | EKG12_ITS ---
Test Reason : Blood Pressure : / mmHG Vent. Rate : 172 BPM Atrial Rate : 172 BPM P-R Int : 000 ms QRS Dur : 146 ms QT Int : 272 ms P-R-T Axes : 000 068 -84 degrees QTc Int : 460 ms Atrial flutter with 2:1 conduction Left ventricular hypertrophy with QRS widening Abnormal ECG When compared with ECG of 28-MAY-2022 22:50, Wide QRS tachycardia has replaced Sinus rhythm Vent. rate has increased BY 63 BPM Confirmed by RADHA BERRY, WESLEY ([id number]), editor in chief ZUNILDA BLANCAS ([id number]) on 07/12/2022 8:37:55 AM Referred By: Confirmed By:WESLEY GARCIA MD
[2022-07-10] MEDS: LORazepam 2 MG/ML Syringe 1 MG IV (17:25)
--- NOTE | 2022-07-10 17:25 | RAD_ITS ---
STUDY: X-RAY CHEST REASON FOR EXAM: Female, 61 years old. Hypoxia TECHNIQUE: Single AP portable view of the chest. COMPARISON: 07/09/2022 FINDINGS: There is hyperinflation of the lungs consistent with chronic obstructive lung disease (COPD). There is no demonstrated pleural abnormality. Normal size heart. Normal mediastinum and celsa. Normal visualized pulmonary arteries. Normal visualized aortic arch and descending thoracic aorta. Normal visualized thoracic spine. Normal visualized ribs, clavicles, and shoulders. There is no demonstrated abnormality of the visualized soft tissue structures of the upper abdomen. RAD/Chest 1 View (Portable) IMPRESSION: Emphysema without pneumonia or atelectasis per Electronically Signed: Odin Cardona MD at 17:49 EST ,
[2022-07-10 17:50] LABS: Allen Test Positive; Base Excess 2 mmol/L (-2 to +2); Bicarbonate 32.6 mmol/L (22-26); Blood Gas Specimen Type ART; Comment 14/6; FI02 95; Mode BiLevel; O2 Delivery Device BiPAP; PEEP 6; PO2 452 mmHG (75-100); RR 12; SITE L Radial; SO2 100 % (95-99); Total Carbon Dioxide 36 mmol/L; pH 7.03 (7.35-7.45)
--- NOTE | 2022-07-10 17:54 | PCM.HOSP.N ---
Hospitalist Note Notified by patient's nurse regarding patient being single and lethargic. Patient had apparently received Ativan prior. Patient was placed on BiPAP in view of deteriorating respiratory condition. ABG performed demonstrated significant respiratory acidosis. Patient transferred to the intensive care unit placed on AVAPS. Repeat ABG ordered and on.
[2022-07-10] MEDS: Vancomycin IV 500 MG/100 ML BAG 100 MG IV (18:27)
--- NOTE | 2022-07-10 18:47 | PHA.PHARE_ITS ---
Consult Pharmacy has been consulted to manage selected antiobiotic: Vancomycin Type of Consult: New start Prior Doses of Antibiotics Received/Current Regimen: received vanc 1250mg IV x1 yesterday at 22:01 Labs: Sodium 139 mmol/L (136-145) 07/10/22 08:55 Potassium 4.1 mmol/L (3.5-5.1) 07/10/22 08:55 Chloride 106 mmol/L (98-107) 07/10/22 08:55 Carbon Dioxide 31.0 mmol/L (21.0-32.0) 07/10/22 08:55 Anion Gap 2 (5-15) L 07/10/22 08:55 BUN 15 mg/dL (7-18) 07/10/22 08:55 Creatinine 0.36 mg/dL (0.55-1.02) L 07/10/22 08:55 Est GFR (MDRD) Af Amer 234 mL/min (>60) 07/10/22 08:55 Est GFR (MDRD) Non-Af 193 mL/min (>60) 07/10/22 08:55 BUN/Creatinine Ratio 41.7 RATIO (10-20) H 07/10/22 08:55 Glucose 124 mg/dL (74-106) H 07/10/22 08:55 Microbiology: Microbiology 07/10/22 12:15 Mucosa - Nasopharyngeal Respiratory Panel (PCR) - Final 07/09/22 19:45 Blood Culture (Wb) - Anticubital Left Blood Culture - Preliminary 07/09/22 19:27 Nasal Secretion SARS-CoV-2 & FLU Antigen (Rapid) - Final Weight used for dosin.3 kg Estimated Creatinine Clearance: 74.7ml/min Goal Trough: 10-15 mcg/mL Pharmacy Plan for Drug Dosing: The patient was ordered vancomycin last night and received one dose but then it was discontinued before the next dose this morning. Now it is being restarted. Will restart at 500mg IV q12h per [facility] dosing protocol. Will not give a loading dose again since it has been less than 24 hrs since the previous one. Will get a trough before the 4th dose of the 500mg. Pharmacy Service will continue to monitor and adjust dosing as required. Follow-Up Labs: Trough Vancomycin Labs to be done on [date and time ordered]: 07/12/22 05:30
--- NOTE | 2022-07-10 19:54 | NURSING ---
Spoke to pt about code status. Each code designation explained and pt wants to be full code. Pt understands that this means she will get a breathing tube if necessary.
--- NOTE | 2022-07-10 20:46 | PCM.PN.BLA ---
Progress Note Nurse reported patient's is okay with intubation. Was at the bedside and discussed CODE STATUS with patient. At this time patient elects to be full code with chest compressions and intubation if necessary.
[2022-07-10 21:25] LABS: Allen Test Positive; Base Excess 4 mmol/L (-2 to +2); Bicarbonate 29.7 mmol/L (22-26); Blood Gas Specimen Type ART; FI02 30; O2 Delivery Device BiPAP; PEEP 8; PO2 97 mmHG (75-100); RR 12; SITE L Radial; SO2 97 % (95-99); Total Carbon Dioxide 32 mmol/L; Vt 450; pCO2 57.4 mmHg (35-45); pH 7.32 (7.35-7.45)
[2022-07-10 22:05] LABS: Bedside Glucose 132 mg/dL (74-106)
[2022-07-11] VITALS (44 sets, daily range): BP systolic 111–195; BP diastolic 61–119; PULSE 57–178; RESP 12–30; TEMP 35.8–37.3; O2SAT 89–100
[2022-07-11] MEDS: Potassium Chloride 40 MEQ in 0.9% Normal Saline 1,000 ML 100 MEQ IV (04:13)
[2022-07-11] MEDS: Vancomycin IV 500 MG/100 ML BAG 100 MG IV ×2 (04:24→19:02)
[2022-07-11 04:33] LABS: Absolute Lymphocyte Count 0.44 X10^3/uL (0.83-4.51); Absolute Neutrophil Count 5.1 X10^3/uL (2.0-7.7); Basophil# 0.01 X10^3/uL; Basophil% 0.2 % (0-1); Hematocrit 36.1 % (37-47); Hemoglobin 10.9 g/dL (12.0-15.0); Lymphocyte # 0.44 X10^3/ul (0.83-4.51); Lymphocyte % 7.4 % (19-41); Mean Corp Hgb Conc 30.2 g/dL (32-36); Mean Corpuscular Hgb 29.4 pg (27.0-32.0); Mean Corpuscular Volume 97.3 fL (81-99); Mean Platelet Vol. 11.3 fl (6.2-12.0); Monocyte# 0.39 X10^3/uL; Monocyte% 6.5 % (0-10); NRBC Flagged by Analyzer 0 % (0-5); Neutrophil # 5.11 X10^3/uL (2.7-7.7); Neutrophil % 85.4 % (47-70); POSITIVE DIFFERENTIAL YES; Platelet Count 217 K/mm3 (150-450); RBC Distribution Width CV 13.3 % (11.6-14.6); RBC Distribution Width SD 46.9 fl (35.1-43.9); Red Blood Count 3.71 M/mm3 (4.2-5.4)
[2022-07-11 04:43] LABS: Differential Indicated SCAN CRITERIA MET
[2022-07-11] MEDS: 0.9% Saline Lock 10 ML Syringe IV (05:50)
[2022-07-11] MEDS: Insulin Lispro 100 UNIT/ML INSULN.PEN SC ×2 (06:17→12:32)
[2022-07-11 06:32] LABS: Anion Gap 2 (5-15); BUN 18 mg/dL (7-18); BUN/Creat Ratio 44.4 RATIO (10-20); Calcium,Total 8.9 mg/dL (8.5-10.1); Chloride 108 mmol/L (98-107); EST Glomerular Filtration Rate 169 mL/min (>60); Est Glom Filt Rate - Afr Amer 204 mL/min (>60); Estimated Creatinine Clearance 113.63 ml/min; Glucose 141 mg/dL (74-106); Magnesium 2.1 mg/dL (1.6-2.6); Phosphorus 2.8 mg/dL (2.5-4.9); Potassium 5.4 mmol/L (3.5-5.1); Sodium Level 139 mmol/L (136-145)
[2022-07-11 06:45] LABS: Bedside Glucose 189 mg/dL (74-106)
--- NOTE | 2022-07-11 07:01 | NURSING ---
[id number] Dr. Enamorado, RTs, ICU RNs present in pt room prep for intubation begun 0658 20mg etomidate given IV push 0700 intubated w/7.5 OET 24cm lip, good color change HR 89 R BP 111/89 SpO2 99 bagging 100% O2.
[2022-07-11] MEDS: Ipratropium/Albuterol Sulfate 3 ML AMPUL.NEB INHALATION ×3 (07:13→15:30)
[2022-07-11 07:50] LABS: Bedside Glucose 272 mg/dL (74-106)
--- NOTE | 2022-07-11 10:14 | CON.PCM.CC_ITS ---
Assessment & Plan Assessment/Plan (1) Respiratory failure: QUALIFIERS: Chronicity: acute on chronic Respiratory failure complication: hypercapnia Qualified Code(s): J96.22 - Acute and chronic respiratory failure with hypercapnia (2) Afib: (3) DONNA (obstructive sleep apnea): (4) Stage 4 very severe COPD by GOLD classification: PLAN: Plan RECOMMENDATIONS: 1. Obtain stat chest x-ray 2. Await echocardiogram 3. Continue to monitor in intensive care unit for possible intubation 4. Challenge with diuretics IMPRESSIONS: 1.??Acute on chronic combined respiratory failure The patient was initially admitted to the floor with CO2 retention leading to encephalopathy and the need for noninvasive positive pressure ventilatory support.? Clinical suspicion for air trapping versus flash pulmonary edema versus lack of hypoxic drive related to failure. Patient with acute decompensation following removal of BiPAP is suggestive of flash pulmonary edema. Chest x-ray has been obtained. Will challenge with IV Lasix. Doubt infectious etiology given the acute onset. Cannot exclude the need for intubation in the next 24 to 48 hours, but currently responding to BiPAP 2.??History of nonischemic cardiomyopathy/troponin elevation Likely secondary to demand ischemia in the setting of #1.? A repeat echocardiogram was done just prior to acute decompensation. Continue to monitor clinically. 3.??Chronic tobacco dependency Despite the end-stage nature of the patient's COPD, she does continue to smoke cigarettes daily.? Patient is currently precontemplative. TIME: 32 minutes critical care time spent addressing patient's respiratory failure, review of all data and collaboration with care team HPI Consult Data Date of Consult: 07/11/22 HPI Narrative Reason for Consultation: Respiratory failure HPI Narrative: KARYNA SALEH is a 61 F, with past medical history listed below and known to me from a previous hospitalization, who presents to [facility] on 07/09/2022 secondary to being found unresponsive. Per the significant other, patient was doing well until couple hours prior to arrival. Patient was found by her significant other unresponsive and was driven to the ER. Patient was minimally responsive at that time, diaphoretic and unable to provide any additional information. Patient does have a long history of COPD on Spiriva/Symbicort at baseline. In the ER, patient was afebrile, tachycardic at 123 bpm and hypertensive at 182/85. Patient was noted to be 98% on 5 L nasal cannula. Patient was then noted to be 98% on room air, but was placed on BiPAP secondary to respiratory distress. Laboratory work-up showed a relatively normal CBC and chemistries except for an elevated bicarbonate of 31 and lactate of 6.3. Blood gas at that time showed acute hypercarbic respiratory failure with increased AA gradient. Chest x-ray showed only hyperinflation. Patient was recommended for ICU level care, but refused. Patient subsequently sent to [facility]. Since being admitted to the hospital, patient has had multiple episodes of being less responsive leading to a transfer to PCU and ultimately ICU this morning. A viral work-up has been ordered and its not been suggestive of an etiology. Patient has had multiple episodes of being less responsive. Patient reportedly had been given Ativan to help with BiPAP synchrony and ABG showed significant respiratory acidosis, so patient was transferred to the intensive care unit for further evaluation and possible intubation. On my evaluation, patient was not willing to give much additional history. Patient reported that it had been a long night and I just want to get some rest. Patient does not have any recollection of being unresponsive. Patient reportedly was tolerating BiPAP well per nursing on transfer. Once again, patient was not conducive with a review of systems secondary to frustration. [facility] Medical History Chronic respiratory failure with hypoxia Elevated troponin I level Essential (primary) hypertension History of non-ST elevation myocardial infarction (NSTEMI) (06/21/19) Hyperglycemia Hyperlipidemia Leukocytosis Nicotine dependence Non-ischemic cardiomyopathy On home oxygen therapy DONNA (obstructive sleep apnea) Smoker Stage 4 very severe COPD by GOLD classification Home Medications acetaminophen 500 mg tablet 1,000 mg PO DAILY PRN PRN Pain Or Fever 10/04/18 [History Last Taken 06/13/19] lisinopril 10 mg tablet 10 mg PO DAILY BP 10/04/18 [History Last Taken 06/14/19] albuterol sulfate 2.5 mg/3 mL (0.083 %) solution for nebulization 2.5 mg (3 mL) inhalation Q6HWA.RT ##120 08/20/20 [Rx Last Taken Unknown] azelastine 205.5 mcg (0.15 %) nasal spray 1 spray intranasal BID #30 mL 11/23/21 [Rx Last Taken Unknown] nicotine 14 mg/24 hr daily transdermal patch 1 patch transdermal Q24H #28 ea 03/01/22 [Rx Last Taken Unknown] albuterol sulfate 90 mcg/actuation aerosol inhaler 2 inh PO Q4H PRN #8.5 grams 07/06/22 [Rx Last Taken Unknown] budesonide-formoterol HFA 160 mcg-4.5 mcg/actuation aerosol inhaler (Symbicort) 2 puff inhalation BID #10.2 grams 07/06/22 [Rx Last Taken Unknown] escitalopram oxalate 20 mg tablet 20 mg PO DAILY 07/06/22 [History Last Taken Unknown] guaifenesin 1,200 mg tablet, extended release 12 hr 1,200 mg PO Q12H #60 tabs 07/06/22 [Rx Last Taken Unknown] tiotropium bromide 1.25 mcg/actuation mist for inhalation (Spiriva Respimat) 2 puff inhalation DAILY 07/09/22 [History Last Taken Unknown] Allergy/AdvReac Type Severity Reaction Status Date / Time codeine Allergy Rash Verified 07/09/22 19:22 ibuprofen Allergy Rash Verified 07/09/22 19:22 Family History Father Lung cancer Mother Breast cancer Parkinsons disease Surgical History H/O tubal ligation Social History household members: significant other housing: house Smoking Status: Current every day smoker tobacco type: cigarettes alcohol intake: never substance use type: does not use ROS ROS Narrative See HPI Physical Exam Narrative Called urgently back to the patient's room at approximately 10:30 AM. Patient reportedly had been on 1 L nasal cannula and tolerating this well. Patient became tachycardic and then acutely hypoxic, cyanotic with peripheral mottling. Patient was placed back on BiPAP therapy with rapid improvement in overall condition. No seizure activity was noted. Patient was grabbing at her BiPAP mask and was restrained briefly. There was discussion about possible intubation, but patient recovered quickly on BiPAP. Patient had had an ec hocardiogram just prior to the event, but reportedly tolerated it well Const alert, oriented x3 and no apparent distress General Appearance: cooperative and frail HEENT normocephalic and head/scalp atraumatic Eyes PERRL, EOMs intact bilaterally and conjunctivae normal Neck supple General: trachea midline Chest Chest: abnormal inspection of the chest kyphotic and scoliotic Resp Resp Narrative: On BiPAP during the initial evaluation Effort and Inspection: prolonged expiratory phase Auscultation: wheezes throughout and diminished lung sounds; Negative for rales or rhonchi Cardio regular rate, regular rhythm, S1 normal heart sound, S2 normal heart sound, no murmurs, no rub and no gallops GI normal to inspection, nondistended, normoactive bowel sounds Extremity General Extremity: clubbing; Negative for edema Skin Skin Narrative: Bruising over distal upper extremities. Neuro CN's II-XII intact bilaterally, moves all extremities and no focal motor deficits Psych cooperative and affect normal Medical Records Data Medical Nutrition Assessment Dietitian: Malnutrition Criteria Met Start: 07/10/22 08:19 Freq: Status: Active Protocol: Document 07/10/22 14:50 RMA (Rec: 07/10/22 14:50 RMA [id number]) Nutrition Malnutrition Evidence of Malnutrition Exists Yes Malnutrition (severe): Chronic Evidenced By Suboptimal Energy Intake ( Severe),Weight Loss (Severe), Physical Changes (Severe) Clinical Problem Chronic Disease or Condition Related Malnutrition Etiology Severe protein-calorie malnutrition in the context of chronic disease related to inadequate oral intake and increased energy expenditure Signs/Symptoms as evidenced by 17% wt loss x 1 year, BMI 16.8, muscle/fat wasting in the clavicle, face, temporal and orbital regions and PO meeting less than 50% estimated energy needs x past 6 months Status Active Problem Recommendation Dietitian Recommendations/Changes Will liberalize diet to regular given signs/symptoms of malnutrition. Will add magic cup BID with lunch and dinner. Will continue 120 ml ensure plus high protein 4 times per day with medpass. Lab / Micro Data Attestation: I reviewed the patient's lab results. Result Diagrams: 07/11/22 04:21 07/11/22 05:56 Labs: Laboratory Results - last 24 hr 07/09/22 19:19: POC Glucose 272 H 07/10/22 11:40: POC Glucose 140 H 07/10/22 16:24: POC Glucose 138 H 07/10/22 21:43: POC Glucose 132 H 07/11/22 04:21: WBC 6.0, RBC 3.71 L, Hgb 10.9 L, Hct 36.1 L, MCV 97.3, MCH 29.4, MCHC 30.2 L, RDW Std Deviation 46.9 H, RDW Coeff of Sami 13.3, Plt Count 217, MPV 11.3, Immature Gran % (Auto) 0.500, Neut % (Auto) 85.4 H, Lymph % (Auto) 7.4 L, Pershing % (Auto) 6.5, Eos % (Auto) 0.0, Baso % (Auto) 0.2, Absolute Neuts (auto) 5.1, Absolute Lymphs (auto) 0.44 L, Nucleated RBC % 0 07/11/22 04:21: Sodium Cancelled, Potassium Cancelled, Chloride Cancelled, Carbon Dioxide Cancelled, Anion Gap Cancelled, BUN Cancelled, Creatinine Cancelled, Estim Creat Clear Calc Cancelled, Est GFR (MDRD) Af Amer Cancelled, Est GFR (MDRD) Non-Af Cancelled, BUN/Creatinine Ratio Cancelled, Glucose Cancelled, Calcium Cancelled, Phosphorus Cancelled, Magnesium Cancelled 07/11/22 05:56: Sodium 139, Potassium 5.4 H, Chloride 108 H, Carbon Dioxide 29.0, Anion Gap 2 L, BUN 18, Creatinine 0.40 L, Estim Creat Clear Calc 113.63, Est GFR (MDRD) Af Amer 204, Est GFR (MDRD) Non-Af 169, BUN/Creatinine Ratio 44.4 H, Glucose 141 H, Calcium 8.9, Phosphorus 2.8, Magnesium 2.1 07/11/22 06:12: POC Glucose 189 H Micro: Microbiology 07/10/22 01:00 Urine, Clean Catch Urine Culture - Preliminary Culture exhibits no growth. 07/09/22 19:45 Blood Culture (Wb) - Anticubital Left Bacteria Detection (PCR) - Final Coag Negative Staph 07/09/22 19:45 Blood Culture (Wb) - Anticubital Left Blood Culture - Preli minary Coag Negative Staph 07/10/22 12:15 Mucosa - Nasopharyngeal Respiratory Panel (PCR) - Final ABG Data ABG results: ABG 07/10/22 07/10/22 17:43 21:20 Specimen Type ART ART Sample Site L Radial L Radial pH 7.03 L* 7.32 L Bicarbonate Actual 32.6 H 29.7 H Total CO2 36 32 Base Excess 2 4 H O2 Saturation 100 H 97 O2 % 95 30 ABG pCO2 123.0 H* 57.4 H ABG pO2 452 H* 97 Arnoldo Test Positive Positive Respiration Rate 12 12 O2 Delivery Device BiPAP BiPAP Vent Mode BiLevel Tidal Volume 450 POC PEEP 6 8 Crit Call To/Read Back Yes Blood Gas Notified Whom kittoe Clinical Comments 04/01 Radiology Impression Chest X-Ray 07/10/22 17:25 IMPRESSION: Emphysema without pneumonia or atelectasis per Electronically Signed: Odin Cardona MD at 17:49 EST , Charges/Coding Procedures Hospitalists Procedures: 42888 Critial Care 1st Hr
[2022-07-11] MEDS: Enoxaparin 60 MG/0.6 ML Syringe 50 MG SC (10:18)
--- NOTE | 2022-07-11 10:50 | RAD_ITS ---
STUDY: X-RAY CHEST REASON FOR EXAM: Female, 61 years old. Hypoxia TECHNIQUE: Single AP portable view of the chest. COMPARISON: Comparison is made with prior study dated 07/10/2022. FINDINGS: EKG electrodes are seen. There is hyperinflation of the lungs consistent with chronic obstructive lung disease (COPD). Stable blunting of both counseling angles. Normal size heart. Normal mediastinum and celsa. Normal visualized pulmonary arteries. Normal visualized aortic arch and descending thoracic aorta. There are diffuse degenerative changes of the visualized thoracic spine. Healed left rib fractures. There is no demonstrated abnormality of the visualized soft tissue structures of the upper abdomen. RAD/Chest 1 View (Portable) IMPRESSION: Hyperinflation. The lungs are clear. Stable examination. Electronically Signed: Joce Maurer MD at 11:21 [facility] ,
[2022-07-11] MEDS: Furosemide 20 MG/2 ML VIAL IV (11:00)
[2022-07-11 12:55] LABS: Bedside Glucose 166 mg/dL (74-106)
--- NOTE | 2022-07-11 13:11 | CASEMGMT ---
Complex Interface Developer to pt's room to complete assessment. Assessment deferred at this time d/t pt being asleep with bipap in place. RN CM to attempt at a later time.
--- NOTE | 2022-07-11 13:37 | NURSING ---
1030: This RN was in patients room to give medications when patient became increasingly short of breath, oxygen saturations declining to 54%, patient cyanotic. and HR 130s. Bipap emergently placed back on patient (was on 2L NC) and additional staff requested for help. Dr. Enamorado called to bedside. Patients oxygen saturations quickly increased while on bipap. Chest Xray ordered. 1045: Patient became anxious while on the bipap and saturations dropped to 64%, Fio2 increased from 21% to 100%. Oxygen saturations quickly improved. Dr. Enamorado called to bedside again, lasix X1 ordered. Chest xray done. Patient was able to calm down with emotional support. Will wean Fio2 as tolerated. Lundberg placed.
[2022-07-11 14:08] LABS: Pathologist Review Reviewed
[2022-07-11] MEDS: Acetaminophen 500 MG Tablet 1000 MG PO (17:26)
[2022-07-11 17:55] LABS: Bedside Glucose 110 mg/dL (74-106)
--- NOTE | 2022-07-11 18:32 | PCM.PN.HOSP ---
Subjective Subjective Patient transferred to the ICU for hypoxic respiratory failure. Has remained on BiPAP. Did have a desaturation off BiPAP earlier and required reinitiation of BiPAP. Still smoking. Objective Data Objective Data Vital Signs: Vital Signs Temp Pulse Resp BP Pulse Ox O2 Del Method O2 Flow Rate 98.8 F 117 H 17 176/95 H 93 Bi-pap 2 07/11/22 16:00 07/11/22 16:00 07/11/22 16:00 07/11/22 16:00 07/11/22 16:00 07/11/22 16:00 07/11/22 10:00 FiO2 25 07/11/22 16:00 Oxygen Flow Rate (L/min) 2 Oxygen Delivery Method Bi-pap Weight: 50 kg Body Mass Index (BMI) 16.6 Intake & Output: Intake and Output for Last 24 Hours 07/09/22 07/10/22 07/11/22 23:59 23:59 23:59 Intake Total 1875 / 1875 3092.5 / 3092.5 1898.33 / 1898.33 Output Total 550 / 550 1150 / 1150 Balance 1875 / 1875 2542.5 / 2542.5 748.33 / 748.33 Medical Nutrition Assessment Dietitian: Malnutrition Criteria Met Start: 07/10/22 08:19 Freq: Status: Active Protocol: Document 07/10/22 14:50 RMA (Rec: 07/10/22 14:50 RMA [id number]) Nutrition Malnutrition Evidence of Malnutrition Exists Yes Malnutrition (severe): Chronic Evidenced By Suboptimal Energy Intake ( Severe),Weight Loss (Severe), Physical Changes (Severe) Clinical Problem Chronic Disease or Condition Related Malnutrition Etiology Severe protein-calorie malnutrition in the context of chronic disease related to inadequate oral intake and increased energy expenditure Signs/Symptoms as evidenced by 17% wt loss x 1 year, BMI 16.8, muscle/fat wasting in the clavicle, face, temporal and orbital regions and PO meeting less than 50% estimated energy needs x past 6 months Status Active Problem Recommendation Dietitian Recommendations/Changes Will liberalize diet to regular given signs/symptoms of malnutrition. Will add magic cup BID with lunch and dinner. Will continue 120 ml ensure plus high protein 4 times per day with medpass. Lab / Micro Data Result Diagrams: 07/11/22 04:21 07/11/22 05:56 Labs: Laboratory Results - last 24 hr 07/09/22 19:19: POC Glucose 272 H 07/10/22 08:55: Diff Path Review Reviewed 07/10/22 21:43: POC Glucose 132 H 07/11/22 04:21: WBC 6.0, RBC 3.71 L, Hgb 10.9 L, Hct 36.1 L, MCV 97.3, MCH 29.4, MCHC 30.2 L, RDW Std Deviation 46.9 H, RDW Coeff of Sami 13.3, Plt Count 217, MPV 11.3, Immature Gran % (Auto) 0.500, Neut % (Auto) 85.4 H, Lymph % (Auto) 7.4 L, [place] % (Auto) 6.5, Eos % (Auto) 0.0, Baso % (Auto) 0.2, Absolute Neuts (auto) 5.1, Absolute Lymphs (auto) 0.44 L, Nucleated RBC % 0 07/11/22 04:21: Sodium Cancelled, Potassium Cancelled, Chloride Cancelled, Carbon Dioxide Cancelled, Anion Gap Cancelled, BUN Cancelled, Creatinine Cancelled, Estim Creat Clear Calc Cancelled, Est GFR (MDRD) Af Amer Cancelled, Est GFR (MDRD) Non-Af Cancelled, BUN/Creatinine Ratio Cancelled, Glucose Cancelled, Calcium Cancelled, Phosphorus Cancelled, Magnesium Cancelled 07/11/22 05:56: Sodium 139, Potassium 5.4 H, Chloride 108 H, Carbon Dioxide 29.0, Anion Gap 2 L, BUN 18, Creatinine 0.40 L, Estim Creat Clear Calc 113.63, Est GFR (MDRD) Af Amer 204, Est GFR (MDRD) Non-Af 169, BUN/Creatinine Ratio 44.4 H, Glucose 141 H, Calcium 8.9, Phosphorus 2.8, Magnesium 2.1 07/11/22 06:12: POC Glucose 189 H 07/11/22 12:30: POC Glucose 166 H 07/11/22 17:24: POC Glucose 110 H Micro: Microbiology 07/10/22 01:00 Urine, Clean Catch Urine Culture - Preliminary Culture exhibits no growth. 07/09/22 19:45 Blood Culture (Wb) - Anticubital Left Bacteria Detection (PCR) - Final Coag Negative Staph 07/09/22 19:45 Blood Culture (Wb) - Anticubital Left Blood Culture - Preliminary Coag Negative Staph 07/10/22 12:15 Mucosa - Nasopharyngeal Respiratory Panel (PCR) - Final 07/09/22 19:27 Nasal Secretion SARS-CoV-2 & FLU Antigen (Rapid) - Final ABG Data ABG results: ABG 07/10/22 07/10/22 01:15 21:20 Specimen Type Cancelled ART Sample Site Cancelled L Radial pH Cancelled 7.32 L Bicarbonate Actual Cancelled 29.7 H Total CO2 Cancelled 32 Base Excess Cancelled 4 H O2 Saturation Cancelled 97 O2 % Cancelled 30 ABG pCO2 Cancelled 57.4 H ABG pO2 Cancelled 97 Arnoldo Test Cancelled Positive Respiration Rate Cancelled 12 O2 Delivery Device Cancelled BiPAP Liter Flow Cancelled Minute Volume Cancelled Vent Mode Cancelled Inspiratory Time Cancelled Expiratory Time Cancelled Tidal Volume Cancelled 450 Mean Airway Pressure Cancelled POC PEEP Cancelled 8 Peak Inspir Pressure Cancelled POC Pressure Suppt Cancelled Pressure Control Cancelled Pressure High Cancelled Pressure Low Cancelled Time High Cancelled Time Low Cancelled EPAP Cancelled IPAP Cancelled Blood Gas Comments Cancelled Crit Call To/Read Back Cancelled Blood Gas Notified Whom Cancelled Blood Gas Notified Time Cancelled Clinical Comments Cancelled Radiography Diagnostic Testing: Radiology Impression Echocardiogram 07/10/22 02:47 Interpretation Summary Normal LV size. The estimated ejection fraction is 40 %. There is mild global hypokinesis of the left ventricle. Mild-Moderate (1-2+) eccentric mitral valve insufficiency. Ordering Physician: Blayne Ochoa Referring Physician: TONE RUSSO Performed By: Isidra Stallings RDCS Chest X-Ray 07/11/22 10:50 IMPRESSION: Hyperinflation. The lungs are clear. Stable examination. Electronically Signed: Joce Maurer MD at 11:21 EST , Physical Exam Const alert Constitutional Narrative: Thin, upper middle-aged white female lying in bed, currently on BiPAP and appears comfortable, nontoxic, nursing and aspiratory at bedside, appears much older than stated age HEENT head/scalp atraumatic HEENT Narrative: BiPAP in place therefore oropharynx is not readily available for examination Head and Scalp: normocephalic Resp Resp Narrative: Fusilli diminished with few scattered wheezes, intermittently using accessory muscles but no current signs of extremis, chest is extremely barrel-shaped Auscultation: wheezes; Negative for crackles or rhonchi Cardio regular rate, regular rhythm, S1 normal heart sound, S2 normal heart sound, no murmurs, no rub, no gallops and no clicks Cardio Narrative: Mild tachycardia GI normal to inspection, nondistended, normoactive bowel sounds, soft to palpation and non-tender Extremity no clubbing, cyanosis or edema Extremity Narrative: 2+ pedal pulses Skin no rashes or lesions noted, skin turgor normal, no jaundice, no petechiae and no mottling Skin Narrative: Scattered ecchymosis with thin skin Neuro moves all extremities and no focal motor deficits Neuro Narrative: Able to assess speech as patient is currently on BiPAP and focusing on respiratory issues Psych Psych Narrative: Only calm Assessment & Plan Assessment/Plan (1) Afib: (2) Severe malnutrition: (3) Acute on chronic respiratory failure with hypoxia and hypercapnia: (4) Hyperkalemia: PLAN: Plan Acute on chronic hypoxic and hypercapnic respiratory failure secondary to acute exacerbation of COPD -Continue BiPAP as ordered -Continue steroids -Aggressive pulmonary toilet -I-S when available -Lasix challenge today -Mucinex -Does not appear to be infectious -Chest x-ray shows hyperinflation with no significant vascular congestion or infiltrates -High risk for intubation requirement but currently responding to BiPAP therapy Chronic anemia -Counts are stable in the mid 10 range -Continue to monitor -No signs of acute blood loss PAF -Now back in normal sinus rhythm -Was initially given a Cardizem bolus -Cardiogram showed an EF of 40% with mild global hypokinesis and mild to moderate eccentric mitral valve insufficiency -Continue to monitor for any further event--> suspect this was likely related to current respiratory status -May need discharged with Eliquis depending on cardiac rhythm stability HFrEF-nonischemic cardiomyopathy -Echocardiogram done this admission when compared to previous in 2019 appears to be stable with an EF of 40 to 45% -Continue home medications -Consider addition of beta-julianna after respiratory issues are stabilized -Would recommend outpatient cardiology follow-up with outpatient noninvasive stress testing after stabilized clinically Troponin elevation -Suspect related NSTEMI type II and demand ischemia with hypoxia -Echo shows no new wall motion abnormality or change in ejection fraction -Recommend outpatient follow-up for noninvasive stress testing once clinically improved and stable Hyperkalemia -Likely related to acidosis as patient's pH was 7.32 on ABG -Repeat in a.m. 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 COPD Gold stage IV -Baseline FEV1 was 25% predicted -Only wears 2 L of oxygen with exertion at baseline -Continue supplemental oxygen as noted -Hold inhalers -Pulmonary toilet as above Hypertension -Continue home lisinopril Tobacco abuse -Highly recommend cessation -Teen patch replacement therapy if needed Depression -Continue home Lexapro DVT prophylaxis -Switch from Lovenox 50 mg twice daily to Lovenox 40 mg daily CODE STATUS Full code Charges/Coding Visit Charges Inpatient E&M: 61293 Subs Hosp L2
--- NOTE | 2022-07-11 20:51 | NURSING ---
193 pt resting in bed quietly on bipap AVAPS 25%, pulse ox 100%. RT notified to decrease FIO2 pt complaint of leg pain, requesting tylenol
--- NOTE | 2022-07-11 21:00 | NURSING ---
pt tachypnic and tachycardic, avaps setting to previous level 25%
[2022-07-11] MEDS: Ensure Plus High Protein 120 ML LIQUID PO (21:08)
[2022-07-11] MEDS: Escitalopram Oxalate 20 MG Tablet PO (21:11)
[2022-07-11 21:26] LABS: Bedside Glucose 127 mg/dL (74-106)
--- NOTE | 2022-07-11 21:29 | EKG12_ITS ---
Test Reason : HIGH RATE Blood Pressure : / mmHG Vent. Rate : 169 BPM Atrial Rate : 312 BPM P-R Int : 000 ms QRS Dur : 084 ms QT Int : 238 ms P-R-T Axes : 000 081 085 degrees QTc Int : 399 ms Atrial fibrillation Nonspecific ST and T wave abnormality Abnormal ECG Confirmed by AAMIR BERRY, MAYUR ([id number]), editor producer ZUNILDA BLANCAS ([id number]) on 07/13/2022 10:58:45 AM Referred By: Confirmed By:MAYUR RUTLEDGE MD
--- NOTE | 2022-07-11 21:49 | CPS ---
Pt EPAP decreased to 5 and fio2 decreased to 21% per RN wanting to keep sat's 88-90% due to CO2 retention and end stage COPD. After 5-10 minutes pt's HR increased to 180's and pt very anxious. Bipap adjusted to initial settings, EPAP of 8 and 25%. Pt HR now in the low 100's. RN aware
[2022-07-11] MEDS: dilTIAZem 25 MG/5 ML Vial 10 MG IV BOLUS (22:07)
--- NOTE | 2022-07-11 22:49 | NURSING ---
2208 monitor remains afib RVR, cardizem 10 mg iv bolus given, gtt initiated at 5 mg/hr
--- NOTE | 2022-07-11 22:49 | NURSING ---
2240 moinitor remains afib RVR, rate 170;s, bp 125/87. cardizem gtt increased to 10 mg/hr
--- NOTE | 2022-07-11 23:40 | NURSING ---
2330 monitor remains a fib rate 150-170. bp 139/111. cardizem increased to 15 mg / hr
[2022-07-12] VITALS (33 sets, daily range): BP systolic 109–158; BP diastolic 60–127; PULSE 69–130; RESP 12–26; TEMP 36.4–37.2; O2SAT 95–100
--- NOTE | 2022-07-12 02:00 | EKG12_ITS ---
Test Reason : HIGH RATE Blood Pressure : / mmHG Vent. Rate : 083 BPM Atrial Rate : 083 BPM P-R Int : 144 ms QRS Dur : 084 ms QT Int : 386 ms P-R-T Axes : 086 082 093 degrees QTc Int : 453 ms Normal sinus rhythm T wave abnormality, consider anterolateral ischemia Abnormal ECG Confirmed by AAMIR BERRY, MAYUR ([id number]), supervising film or videotape editor ZUNILDA BLANCAS ([id number]) on 07/13/2022 10:58:34 AM Referred By: Confirmed By:MAYUR RUTLEDGE MD
--- NOTE | 2022-07-12 02:18 | NURSING ---
0200 monitor appears sinus, confirmed with EKG. Cardizem remains at 15 mg/hr
[2022-07-12 05:25] LABS: Absolute Lymphocyte Count 0.59 X10^3/uL (0.83-4.51); Hematocrit 33.3 % (37-47); Hemoglobin 10.3 g/dL (12.0-15.0); Lymphocyte # 0.59 X10^3/ul (0.83-4.51); Mean Corp Hgb Conc 30.9 g/dL (32-36); Mean Corpuscular Hgb 29.1 pg (27.0-32.0); Mean Corpuscular Volume 94.1 fL (81-99); Mean Platelet Vol. 10.7 fl (6.2-12.0); Monocyte# 0.36 X10^3/uL; Monocyte% 9.2 % (0-10); NRBC Flagged by Analyzer 0 % (0-5); Neutrophil # 2.97 X10^3/uL (2.7-7.7); Neutrophil % 75.5 % (47-70); POSITIVE DIFFERENTIAL YES; Platelet Count 182 K/mm3 (150-450); RBC Distribution Width CV 12.6 % (11.6-14.6); RBC Distribution Width SD 43.7 fl (35.1-43.9); Red Blood Count 3.54 M/mm3 (4.2-5.4); White Blood Count 3.9 K/mm3 (4.4-11.0)
[2022-07-12 05:26] LABS: Differential Indicated SCAN CRITERIA MET
[2022-07-12] MEDS: 0.9% Saline Lock 10 ML Syringe IV ×3 (05:26→13:13)
[2022-07-12] MEDS: Vancomycin IV 500 MG/100 ML BAG 100 MG IV (05:30)
[2022-07-12 05:43] LABS: ALB/GLOB Ratio 1.1 RATIO (0.9-2.4); AST(SGOT) 23 U/L (15-37); Alanine Aminotransfer ALT/SGPT 100 U/L (13-56); Albumin, Serum 3.2 g/dL (3.2-5.0); Alkaline Phosphatase 69 U/L (45-117); Anion Gap 4 (5-15); BUN 20 mg/dL (7-18); BUN/Creat Ratio 53.3 RATIO (10-20); Calcium,Total 9.1 mg/dL (8.5-10.1); Chloride 96 mmol/L (98-107); Creatinine, Serum 0.38 mg/dL (0.55-1.02); EST Glomerular Filtration Rate 184 mL/min (>60); Est Glom Filt Rate - Afr Amer 223 mL/min (>60); Estimated Creatinine Clearance 119.61 ml/min; Globulin 2.8 g/dL (2.2-4.2); Glucose 145 mg/dL (74-106); Magnesium 2.3 mg/dL (1.6-2.6); Phosphorus 2.6 mg/dL (2.5-4.9); Potassium 4.1 mmol/L (3.5-5.1); Sodium Level 136 mmol/L (136-145); Vancomycin, Trough Level 4.1 ug/mL (5.0-15.0)
[2022-07-12 05:49] LABS: Differential Comment SCANNED
--- NOTE | 2022-07-12 06:47 | PCM.RX.CS ---
Consult Pharmacy has been consulted to manage selected antiobiotic: Vancomycin Type of Consult: Follow-up Labs: Sodium 136 mmol/L (136-145) 07/12/22 05:20 Potassium 4.1 mmol/L (3.5-5.1) 07/12/22 05:20 Chloride 96 mmol/L (98-107) L 07/12/22 05:20 Carbon Dioxide 36.0 mmol/L (21.0-32.0) H 07/12/22 05:20 Anion Gap 4 (5-15) L 07/12/22 05:20 BUN 20 mg/dL (7-18) H 07/12/22 05:20 Creatinine 0.38 mg/dL (0.55-1.02) L 07/12/22 05:20 Est GFR (MDRD) Af Amer 223 mL/min (>60) 07/12/22 05:20 Est GFR (MDRD) Non-Af 184 mL/min (>60) 07/12/22 05:20 BUN/Creatinine Ratio 53.3 RATIO (10-20) H 07/12/22 05:20 Glucose 145 mg/dL (74-106) H 07/12/22 05:20 Vancomycin Trough 4.1 ug/mL (5.0-15.0) L 07/12/22 05:20 Microbiology: Microbiology 07/10/22 01:00 Urine, Clean Catch Urine Culture - Preliminary Culture exhibits no growth. 07/09/22 19:45 Blood Culture (Wb) - Anticubital Left Bacteria Detection (PCR) - Final Coag Negative Staph 07/09/22 19:45 Blood Culture (Wb) - Anticubital Left Blood Culture - Preliminary Coag Negative Staph 07/10/22 12:15 Mucosa - Nasopharyngeal Respiratory Panel (PCR) - Final 07/09/22 19:27 Nasal Secretion SARS-CoV-2 & FLU Antigen (Rapid) - Final Goal Trough: 10-15 mcg/mL Pharmacy Plan for Drug Dosing: VANCOMYCIN LEVEL RECEIVED Current Vancomycin Dose: 500MG IV Q12H Number of Doses Received: 4 (3 prior to trough draw) Vancomycin Level: 4.1 Hours Since Last Dose: 10.5 Renal Function: 0.38 Renal Function Trend: stable Lab/Micro: Bcx growing x2 strains coag (-) staph --> contaminant?? Vancomycin Plan/Comments: Patient had a trough drawn which resulted in a value of 4.1 (goal 10-15). Of note; trough was drawn correctly. Will increase vancomycin dose to 1g IV Q12hr to start 07/12/22 @1800, as the patient has already had AM dose of current dose this morning. Pending Level: 07/14/22 @0530, prior to 4th dose of new regimen Pharmacy Service will continue to monitor and adjust dosing as required.
[2022-07-12] MEDS: Ipratropium/Albuterol Sulfate 3 ML AMPUL.NEB INHALATION ×2 (07:15→19:52)
--- NOTE | 2022-07-12 07:48 | PCM.PN.INT ---
Assessment & Plan Assessment/Plan (1) Respiratory failure: QUALIFIERS: Chronicity: acute on chronic Respiratory failure complication: hypercapnia Qualified Code(s): J96.22 - Acute and chronic respiratory failure with hypercapnia (2) Afib: (3) DONNA (obstructive sleep apnea): (4) Stage 4 very severe COPD by GOLD classification: PLAN: Plan RECOMMENDATIONS: 1. Transition to p.o. Cardizem 2. Defer to hospitalist on involvement of cardiology 3. Attempt BiPAP breaks. Continue to monitor in intensive care unit for possible intubation 4. Challenge with diuretics IMPRESSIONS: 1.??Acute on chronic combined respiratory failure The patient was initially admitted to the floor with CO2 retention leading to encephalopathy and the need for noninvasive positive pressure ventilatory support.? Clinical suspicion for air trapping versus flash pulmonary edema versus lack of hypoxic drive related to failure. Patient with acute decompensation following removal of BiPAP is suggestive of flash pulmonary edema. Chest x-ray has been obtained. Will challenge with IV Lasix. Doubt infectious etiology given the acute onset. Recommend attempting BiPAP breaks while in the intensive care unit given rapid decompensation prior to transfer to the floor 2.??History of nonischemic cardiomyopathy/troponin elevation Likely secondary to demand ischemia in the setting of #1.? A repeat echocardiogram was done just prior to acute decompensation showing a decrease in EF and global LV dysfunction. Continue to monitor clinically. 3.??Chronic tobacco dependency Despite the end-stage nature of the patient's COPD, she does continue to smoke cigarettes daily.? Patient is currently precontemplative. 4. A. fib with RVR Responded to Cardizem overnight. We will transition to p.o. Cardizem. Patient does have a slight decrease in EF compared to previous. Defer to hospitalist on involvement of cardiology. Patient's marginal baseline respiratory status complicates cardiac management. TIME: 34 minutes critical care time spent addressing patient's respiratory failure, A. fib with RVR, review of all data and collaboration with care team Subjective Subjective Patient did okay from a hemodynamic standpoint overnight. However, patient did develop A. fib with RVR requiring Cardizem bolus with drip. Patient is now back in sinus rhythm. Patient reportedly did not have decompensation from a cardiopulmonary standpoint, but did have heart rates into the 160s. Patient subjectively feels unchanged today. Patient has very few breaks off of BiPAP Objective Data Objective Data Echocardiogram shows a decrease from 45% EF to 40% EF with diastolic dysfunction Vital Signs: Vital Signs Temp Pulse Resp BP Pulse Ox O2 Del Method O2 Flow Rate 36.9 C 80 17 122/67 H 98 Bi-pap 2 07/12/22 07:00 07/12/22 07:15 07/12/22 07:15 07/12/22 07:00 07/12/22 07:28 07/12/22 07:28 07/11/22 10:00 FiO2 25 07/12/22 07:15 Oxygen Flow Rate (L/min) 2 Oxygen Delivery Method Bi-pap Weight: 46.3 kg Body Mass Index (BMI) 16.6 Intake & Output: Intake and Output for Last 24 Hours 07/10/22 07/11/22 07/12/22 23:59 23:59 23:59 Intake Total 3092.5 / 3092.5 2058.50 / 2158.50 394.83 / 394.83 Output Total 550 / 550 1450 / 1450 375 / 375 Balance 2542.5 / 2542.5 608.50 / 708.50 19.83 / 19.83 Medical Nutrition Assessment Dietitian: Malnutrition Criteria Met Start: 07/10/22 08:19 Freq: Status: Active Protocol: Document 07/10/22 14:50 RMA (Rec: 07/10/22 14:50 RMA [id number]) Nutrition Malnutrition Evidence of Malnutrition Exists Yes Malnutrition (severe): Chronic Evidenced By Suboptimal Energy Intake ( Severe),Weight Loss (Severe), Physical Changes (Severe) Clinical Problem Chronic Disease or Condition Related Malnutrition Etiology Severe protein-calorie malnutrition in the context of chronic disease related to inadequate oral intake and increased energy expenditure Signs/Symptoms as evidenced by 17% wt loss x 1 year, BMI 16.8, muscle/fat wasting in the clavicle, face, temporal and orbital regions and PO meeting less than 50% estimated energy needs x past 6 months Status Active Problem Recommendation Dietitian Recommendations/Changes Will liberalize diet to regular given signs/symptoms of malnutrition. Will add magic cup BID with lunch and dinner. Will continue 120 ml ensure plus high protein 4 times per day with medpass. Lab / Micro Data Attestation: I reviewed the patient's lab results. Result Diagrams: 07/12/22 05:20 07/12/22 05:20 Labs: Laboratory Results - last 24 hr 07/09/22 19:19: POC Glucose 272 H 07/10/22 08:55: Diff Path Review Reviewed 07/11/22 12:30: POC Glucose 166 H 07/11/22 17:24: POC Glucose 110 H 07/11/22 20:51: POC Glucose 127 H 07/12/22 05:20: Vancomycin Trough 4.1 L 07/12/22 05:20: WBC 3.9 L, RBC 3.54 L, Hgb 10.3 L, Hct 33.3 L, MCV 94.1, MCH 29.1, MCHC 30.9 L, RDW Std Deviation 43.7, RDW Coeff of Sami 12.6, Plt Count 182, MPV 10.7, Immature Gran % (Auto) 0.300, Neut % (Auto) 75.5 H, Lymph % (Auto) 15.0 L, [place] % (Auto) 9.2, Eos % (Auto) 0.0, Baso % (Auto) 0.0, Absolute Neuts (auto) 3.0, Absolute Lymphs (auto) 0.59 L, Nucleated RBC % 0, Differential Comment SCANNED, Diff Path Review May foll 07/12/22 05:20: Sodium 136, Potassium 4.1, Chloride 96 L, Carbon Dioxide 36.0 H, Anion Gap 4 L, BUN 20 H, Creatinine 0.38 L, Estim Creat Clear Calc 119.61, Est GFR (MDRD) Af Amer 223, Est GFR (MDRD) Non-Af 184, BUN/Creatinine Ratio 53.3 H, Glucose 145 H, Calcium 9.1, Phosphorus 2.6, Magnesium 2.3, Total Bilirubin 0.40, AST 23, ALT 100 H, Alkaline Phosphatase 69, Total Protein 6.0 L, Albumin 3.2, Globulin 2.8, Albumin/Globulin Ratio 1.1 Micro: Microbiology 07/10/22 01:00 Urine, Clean Catch Urine Culture - Final Culture exhibits no growth. 07/09/22 19:45 Blood Culture (Wb) - Anticubital Left Bacteria Detection (PCR) - Final Coag Negative Staph 07/09/22 19:45 Blood Culture (Wb) - Anticubital Left Blood Culture - Preliminary Coag Negative Staph 07/10/22 12:15 Mucosa - Nasopharyngeal Respiratory Panel (PCR) - Final 07/09/22 19:27 Nasal Secretion SARS-CoV-2 & FLU Antigen (Rapid) - Final ABG Data ABG results: ABG 07/10/22 01:15 Specimen Type Cancelled Sample Site Cancelled pH Cancelled Bicarbonate Actual Cancelled Total CO2 Cancelled Base Excess Cancelled O2 Saturation Cancelled O2 % Cancelled ABG pCO2 Cancelled ABG pO2 Cancelled Arnoldo Test Cancelled Respiration Rate Cancelled O2 Delivery Device Cancelled Liter Flow Cancelled Minute Volume Cancelled Vent Mode Cancelled Inspiratory Time Cancelled Expiratory Time Cancelled Tidal Volume Cancelled Mean Airway Pressure Cancelled POC PEEP Cancelled Peak Inspir Pressure Cancelled POC Pressure Suppt Cancelled Pressure Control Cancelled Pressure High Cancelled Pressure Low Cancelled Time High Cancelled Time Low Cancelled EPAP Cancelled IPAP Cancelled Blood Gas Comments Cancelled Crit Call To/Read Back Cancelled Blood Gas Notified Whom Cancelled Blood Gas Notified Time Cancelled Clinical Comments Cancelled Radiography Diagnostic Testing: Radiology Impression Echocardiogram 07/10/22 02:47 Interpretation Summary Normal LV size. The estimated ejection fraction is 40 %. There is mild global hypokinesis of the left ventricle. Mild-Moderate (1-2+) eccentric mitral valve insufficiency. Ordering Physician: Blayne Ochoa Referring Physician: TONE RUSSO Performed By: Isidra Stallings RDCS Chest X-Ray 07/11/22 10:50 IMPRESSION: Hyperinflation. The lungs are clear. Stable examination. Electronically Signed: Joce Maurer MD at 11:21 EST , Physical Exam Const alert, oriented x3 and no apparent distress Constitutional Narrative: On BiPAP during my evaluation General Appearance: cooperative and frail HEENT normocephalic and head/scalp atraumatic HEENT Narrative: Dry mucous membranes Eyes PERRL, EOMs intact bilaterally and conjunctivae normal Neck supple General: trachea midline Chest Chest: abnormal inspection of the chest kyphotic and scoliotic Resp Resp Narrative: On BiPAP during the initial evaluation Effort and Inspection: prolonged expiratory phase Auscultation: wheezes throughout and diminished lung sounds; Negative for rales or rhonchi Cardio regular rate, regular rhythm, S1 normal heart sound, S2 normal heart sound, no murmurs, no rub and no gallops GI normal to inspection, nondistended, normoactive bowel sounds Extremity General Extremity: clubbing; Negative for edema Skin Skin Narrative: Bruising over distal upper extremities. Neuro CN's II-XII intact bilaterally, moves all extremities and no focal motor deficits Psych cooperative and affect normal Charges/Coding Procedures Hospitalists Procedures: 96372 Critial Care 1st Hr
[2022-07-12] MEDS: dilTIAZem 60 MG Tablet PO ×3 (08:26→19:48)
[2022-07-12] MEDS: Furosemide 20 MG/2 ML VIAL IV (08:27)
[2022-07-12] MEDS: guaiFENesin 1,200 MG Tablet 1200 MG PO ×2 (08:31→19:49)
[2022-07-12] MEDS: Enoxaparin 40 MG/0.4 ML Syringe SC (08:32)
[2022-07-12] MEDS: Ensure Plus High Protein 120 ML LIQUID PO ×4 (08:39→19:47)
--- NOTE | 2022-07-12 10:05 | CASEMGMT ---
LION MALAVE Assessment: Face to Face with pt for initial transition planning/care coordination assessment. LION MALAVE introduced self and role at [facility], pt voices understanding and consents to assessment. Pt in bed. Oxygen in place. Appears to be in no distress. Pt's SO's father, Vin, at bedside. Pt gave verbal permission to speak in front of Vin. Vin explained both he and his son are named Vin. Pt is A/O x4 and answers all questions appropriately at this time. Care providers, pharmacy, and demographics verified/updated. Admitting Dx: Acute Hypercapnic Respiratory Failure. PCP: Isabel Rae. Specialists: [facility]. [facility]erred [facility]acy: [facility]. Insurance: Medicare Part A B and Medicaid [employer] [facility] [place]. Prescription Benefit: Yes. LW/HPOA: Pt denies having a LW/DPOA and denies need for info regarding AD. Per previous notes in [employer], information was provided in 2019. LNOK: SO- Vin Curtis. Pt lives with dtr but declined to provide demographic information. Pt also declined providing a correct address for SO. Living Arrangements: Pt lives with dtr, Bettye Li, in a mobile home with 3 steps to enter. Transportation: Pt's dtr or SO provide transportation. DME/HHC/SNF: Pt has the following: walker, wheelchair, shower chair, bedside commode, and nebulizer. Pt reports being on 2.5L continuous Oxygen but cannot recall who the provider is. Pt thinks the provider may be [employer]. Pt reports having necessary supplies included tubing, a concentrator, and a portable oxygen tank. Pt states no concerns with going home at time of dc. Pt states no further concerns/needs. CM to follow. Advised pt to ask CM if any further question/concerns/needs arise, voices understanding. Pt Goal: Home. No needs. Plan: TBD. ?
[2022-07-12 11:30] LABS: Bedside Glucose 134 mg/dL (74-106)
[2022-07-12] MEDS: Acetaminophen 500 MG Tablet 1000 MG PO (12:02)
[2022-07-12 13:54] LABS: Pathologist Review Reviewed
--- NOTE | 2022-07-12 15:01 | PN.HOSP_ITS ---
Subjective Subjective Patient redeveloped A. fib with RVR overnight. Stable hemodynamically and had some intermittent shortness of breath on breaks of BiPAP however he is doing well this morning and states her breathing has improved. Currently on nasal cannula. Denies any current needs. States she is hungry and we did tell her if she is able to stay off BiPAP we would able to start a diet. Objective Data Objective Data Vital Signs: Vital Signs Temp Pulse Resp BP Pulse Ox O2 Del Method O2 Flow Rate 98.9 F 94 18 144/78 H 99 Nasal Cannula 2 07/12/22 13:00 07/12/22 14:00 07/12/22 14:00 07/12/22 14:00 07/12/22 14:00 07/12/22 14:00 07/12/22 14:00 FiO2 25 07/12/22 08:00 Oxygen Flow Rate (L/min) 2 Oxygen Delivery Method Nasal Cannula Weight: 46.3 kg Body Mass Index (BMI) 16.6 Intake & Output: Intake and Output for Last 24 Hours 07/10/22 07/11/22 07/12/22 23:59 23:59 23:59 Intake Total 3092.5 / 3092.5 2058.50 / 2158.50 644.83 / 644.83 Output Total 550 / 550 1450 / 1450 1075 / 1075 Balance 2542.5 / 2542.5 608.50 / 708.50 -430.17 / -430.17 Medical Nutrition Assessment Dietitian: Malnutrition Criteria Met Start: 07/10/22 08:19 Freq: Status: Active Protocol: Document 07/12/22 10:49 AG (Rec: 07/12/22 10:49 [id number]) Nutrition Malnutrition Evidence of Malnutrition Exists Yes Malnutrition (severe): Chronic Evidenced By Suboptimal Energy Intake ( Severe),Weight Loss (Severe), Physical Changes (Severe) Clinical Problem Chronic Disease or Condition Related Malnutrition Etiology Severe protein-calorie malnutrition in the context of chronic disease related to inadequate oral intake and increased energy expenditure Signs/Symptoms as evidenced by 17% wt loss x 1 year, BMI 15.8, muscle/fat wasting in the clavicle, face, temporal and orbital regions and PO intake meeting less than 50% estimated energy needs x past 6 months Status Active Problem Recommendation Dietitian Recommendations/Changes Liberalized regular diet given signs/symptoms of malnutrition. Magic cup BID with lunch and dinner and 120 mL ensure plus high protein 4 times per day with medpass for additional calories/protein if consumed. Lab / Micro Data Result Diagrams: 07/12/22 05:20 07/12/22 05:20 Labs: Laboratory Results - last 24 hr 07/11/22 17:24: POC Glucose 110 H 07/11/22 20:51: POC Glucose 127 H 07/12/22 05:20: Vancomycin Trough 4.1 L 07/12/22 05:20: WBC 3.9 L, RBC 3.54 L, Hgb 10.3 L, Hct 33.3 L, MCV 94.1, MCH 29.1, MCHC 30.9 L, RDW Std Deviation 43.7, RDW Coeff of Sami 12.6, Plt Count 182, MPV 10.7, Immature Gran % (Auto) 0.300, Neut % (Auto) 75.5 H, Lymph % (Auto) 15.0 L, [place] % (Auto) 9.2, Eos % (Auto) 0.0, Baso % (Auto) 0.0, Absolute Neuts (auto) 3.0, Absolute Lymphs (auto) 0.59 L, Nucleated RBC % 0, Differential Comment SCANNED, Diff Path Review Reviewed 07/12/22 05:20: Sodium 136, Potassium 4.1, Chloride 96 L, Carbon Dioxide 36.0 H, Anion Gap 4 L, BUN 20 H, Creatinine 0.38 L, Estim Creat Clear Calc 119.61, Est GFR (MDRD) Af Amer 223, Est GFR (MDRD) Non-Af 184, BUN/Creatinine Ratio 53.3 H, Glucose 145 H, Calcium 9.1, Phosphorus 2.6, Magnesium 2.3, Total Bilirubin 0.40, AST 23, ALT 100 H, Alkaline Phosphatase 69, Total Protein 6.0 L, Albumin 3.2, Globulin 2.8, Albumin/Globulin Ratio 1.1 07/12/22 11:09: POC Glucose 134 H Micro: Microbiology 07/10/22 01:00 Urine, Clean Catch Urine Culture - Final Culture exhibits no growth. 07/09/22 19:45 Blood Culture (Wb) - Anticubital Left Bacteria Detection (PCR) - Final Coag Negative Staph 07/09/22 19:45 Blood Culture (Wb) - Anticubital Left Blood Culture - Preliminary Coag Negative Staph 07/10/22 12:15 Mucosa - Nasopharyngeal Respiratory Panel (PCR) - Final 07/09/22 19:27 Nasal Secretion SARS-CoV-2 & FLU Antigen (Rapid) - Final ABG Data ABG results: ABG 07/10/22 01:15 Specimen Type Cancelled Sample Site Cancelled pH Cancelled Bicarbonate Actual Cancelled Total CO2 Cancelled Base Excess Cancelled O2 Saturation Cancelled O2 % Cancelled ABG pCO2 Cancelled ABG pO2 Cancelled Arnoldo Test Cancelled Respiration Rate Cancelled O2 Delivery Device Cancelled Liter Flow Cancelled Minute Volume Cancelled Vent Mode Cancelled Inspiratory Time Cancelled Expiratory Time Cancelled Tidal Volume Cancelled Mean Airway Pressure Cancelled POC PEEP Cancelled Peak Inspir Pressure Cancelled POC Pressure Suppt Cancelled Pressure Control Cancelled Pressure High Cancelled Pressure Low Cancelled Time High Cancelled Time Low Cancelled EPAP Cancelled IPAP Cancelled Blood Gas Comments Cancelled Crit Call To/Read Back Cancelled Blood Gas Notified Whom Cancelled Blood Gas Notified Time Cancelled Clinical Comments Cancelled Physical Exam Const alert and oriented x3 Constitutional Narrative: Thin, upper middle-aged white sitting up in bed, currently on nasal cannula, appears comfortable nontoxic, nursing and respiratory therapy are at the bedside, patient appears much older than stated age HEENT head/scalp atraumatic and moist oral mucous membranes HEENT Narrative: Dentition is poor, Mallampati is 1-2, no thrush Resp no retractions, no use of accessory muscles and clear to auscultation bilaterally Resp Narrative: Diffusely diminished no adventitious sounds, barrel-shaped chest, slight tachypnea Auscultation: wheezes; Negative for crackles or rhonchi Cardio regular rate, regular rhythm, S1 normal heart sound, S2 normal heart sound, no murmurs, no rub, no gallops and no clicks GI normal to inspection, nondistended, normoactive bowel sounds, soft to palpation and non-tender Extremity no clubbing, cyanosis or edema Extremity Narrative: 2+ pedal pulses Skin no rashes or lesions noted, skin turgor normal, no jaundice, no petechiae and no mottling Skin Narrative: Scattered ecchymosis with thin skin especially noted on bilateral upper extremities Neuro oriented x3, moves all extremities and no focal motor deficits Speech: speech normal Psych affect normal Psych Narrative: Appropriately interactive Assessment & Plan Assessment/Plan (1) Afib: (2) Severe malnutrition: (3) Acute on chronic respiratory failure with hypoxia and hypercapnia: (4) Hyperkalemia: PLAN: Plan Acute on chronic hypoxic and hypercapnic respiratory failure secondary to acute exacerbation of COPD -Patient is currently stable off BiPAP we will continue as needed BiPAP -Weaned to nasal cannula -At baseline patient uses 2 L with exertion only -Continue steroids -Aggressive pulmonary toilet -I-S -Lasix challenge again -Continue Mucinex -Chest x-ray shows hyperinflation with no significant vascular congestion or infiltrates Chronic anemia -Counts are stable in the mid 10 range -Continue to monitor -No signs of acute blood loss PAF -Patient having intermittent bouts of PAF now back in sinus rhythm again -Cardizem has been scheduled 60 mg every 6 -Start apixaban 5 mg p.o. twice daily -Cardiogram showed an EF of 40% with mild global hypokinesis and mild to moderate eccentric mitral valve insufficiency -Continue to monitor for any further event--> suspect this was likely related to current respiratory status HFrEF-nonischemic cardiomyopathy -Echocardiogram done this admission when compared to previous in 2019 appears to be stable with an EF of 40 to 45% -Continue home medications -Consider addition of beta-julianna after respiratory issues are stabilized -Would recommend outpatient cardiology follow-up with outpatient noninvasive stress testing after stabilized clinically Troponin elevation -Suspect related NSTEMI type II and demand ischemia with hypoxia -Echo shows no new wall motion abnormality or change in ejection fraction -Recommend outpatient follow-up for noninvasive stress testing once clinically improved and stable Hyperkalemia -Resolved Severe malnutrition -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
[2022-07-12 16:30] LABS: Bedside Glucose 139 mg/dL (74-106)
[2022-07-12] MEDS: Vancomycin IV 1,000 MG/200 ML BAG 200 MG IV (17:33)
[2022-07-12] MEDS: Escitalopram Oxalate 20 MG Tablet PO (19:49)
[2022-07-12] MEDS: APIXABAN 5 MG TABLET PO (19:49)
--- NOTE | 2022-07-12 19:52 | CPS ---
Pt refused BiPAP
[2022-07-12] MEDS: Insulin Lispro 100 UNIT/ML INSULN.PEN SC (20:43)
--- NOTE | 2022-07-12 20:47 | NURSING ---
Pt requested all meds to be given now.
[2022-07-12 21:00] LABS: Bedside Glucose 164 mg/dL (74-106)
[2022-07-12] MEDS: MELATONIN 3 MG TABLET PO (21:29)
[2022-07-12] MEDS: Acetaminophen 325 MG Tablet 650 MG PO (21:52)
[2022-07-13] VITALS (20 sets, daily range): BP systolic 117–153; BP diastolic 68–109; PULSE 67–96; RESP 15–22; TEMP 36.4–37.2; O2SAT 78–100
--- NOTE | 2022-07-13 00:15 | NURSING ---
attempted to put pt on bipap. Pt on it for 1 min and then said she cant breath w it on. Pt became very anxious, 02 at 2lnc reappilied
[2022-07-13 03:36] LABS: Absolute Lymphocyte Count 0.29 X10^3/uL (0.83-4.51); Absolute Neutrophil Count 2.8 X10^3/uL (2.0-7.7); Hematocrit 32.7 % (37-47); Hemoglobin 10.2 g/dL (12.0-15.0); Lymphocyte # 0.29 X10^3/ul (0.83-4.51); Lymphocyte % 8.6 % (19-41); Mean Corp Hgb Conc 31.2 g/dL (32-36); Mean Corpuscular Hgb 28.9 pg (27.0-32.0); Mean Corpuscular Volume 92.6 fL (81-99); Mean Platelet Vol. 10.9 fl (6.2-12.0); Monocyte# 0.29 X10^3/uL; Monocyte% 8.6 % (0-10); NRBC Flagged by Analyzer 0 % (0-5); Neutrophil # 2.77 X10^3/uL (2.7-7.7); Neutrophil % 82.2 % (47-70); POSITIVE DIFFERENTIAL YES; Platelet Count 184 K/mm3 (150-450); RBC Distribution Width CV 12.5 % (11.6-14.6); RBC Distribution Width SD 42.2 fl (35.1-43.9); Red Blood Count 3.53 M/mm3 (4.2-5.4); White Blood Count 3.4 K/mm3 (4.4-11.0)
[2022-07-13 03:40] LABS: Differential Indicated SCAN CRITERIA MET
[2022-07-13 03:46] LABS: Anion Gap 3 (5-15); BUN 24 mg/dL (7-18); BUN/Creat Ratio 50.7 RATIO (10-20); Calcium,Total 8.7 mg/dL (8.5-10.1); Chloride 96 mmol/L (98-107); Creatinine, Serum 0.47 mg/dL (0.55-1.02); EST Glomerular Filtration Rate 141 mL/min (>60); Est Glom Filt Rate - Afr Amer 171 mL/min (>60); Estimated Creatinine Clearance 89.55 ml/min; Glucose 153 mg/dL (74-106); Potassium 3.6 mmol/L (3.5-5.1); Sodium Level 137 mmol/L (136-145)
[2022-07-13 03:49] LABS: Differential Comment SCANNED
[2022-07-13] MEDS: Vancomycin IV 1,000 MG/200 ML BAG 200 MG IV (04:50)
[2022-07-13] MEDS: dilTIAZem 60 MG Tablet PO ×2 (05:05→13:19)
[2022-07-13] MEDS: 0.9% Saline Lock 10 ML Syringe IV ×2 (05:07→09:52)
[2022-07-13] MEDS: Insulin Lispro 100 UNIT/ML INSULN.PEN SC (06:32)
[2022-07-13 06:55] LABS: Bedside Glucose 160 mg/dL (74-106)
[2022-07-13] MEDS: Ipratropium/Albuterol Sulfate 3 ML AMPUL.NEB INHALATION (07:12)
--- NOTE | 2022-07-13 08:07 | PCM.PN.INT ---
Assessment & Plan Assessment/Plan (1) Respiratory failure: QUALIFIERS: Chronicity: acute on chronic Respiratory failure complication: hypercapnia Qualified Code(s): J96.22 - Acute and chronic respiratory failure with hypercapnia (2) Afib: (3) DONNA (obstructive sleep apnea): (4) Stage 4 very severe COPD by GOLD classification: PLAN: Plan RECOMMENDATIONS: 1. Transition to long-acting Cardizem 2. Defer to hospitalist on involvement of cardiology 3. Potential discharge if able to ambulate and maintain hemodynamic stability 4. Challenge with diuretics 5. Obtain walking oximetry prior to discharge IMPRESSIONS: 1.??Acute on chronic combined respiratory failure The patient was initially admitted to the floor with CO2 retention leading to encephalopathy and the need for noninvasive positive pressure ventilatory support.? Clinical suspicion for air trapping versus flash pulmonary edema versus lack of hypoxic drive related to failure. Patient with acute decompensation following removal of BiPAP is suggestive of flash pulmonary edema. Patient appears to be much improved with rate control medications. Okay to transition to long-acting Cardizem from my perspective. If patient is able to ambulate around the room and tolerate well, potential discharge later today 2.??History of nonischemic cardiomyopathy/troponin elevation Likely secondary to demand ischemia in the setting of #1.? A repeat echocardiogram was done just prior to acute decompensation showing a decrease in EF and global LV dysfunction. Continue to monitor clinically. 3.??Chronic tobacco dependency Despite the end-stage nature of the patient's COPD, she does continue to smoke cigarettes daily.? Patient is currently precontemplative. 4. A. fib with RVR Patient has responded well to short acting Cardizem. Okay to transition to long-acting. Patient does have a slight decrease in EF compared to previous. Defer to hospitalist on involvement of cardiology. Patient's marginal baseline respiratory status complicates cardiac management. Subjective Subjective Patient has done better over the last 24 hours. Patient was off of BiPAP for most of the day yesterday. Unfortunately, patient refused moving out of bed. However, no hypoxic or tachycardic episodes were noted. Objective Data Objective Data Vital Signs: Vital Signs Temp Pulse Resp BP Pulse Ox O2 Del Method O2 Flow Rate 36.4 C L 87 15 135/84 H 95 Nasal Cannula 2 07/13/22 03:29 07/13/22 07:14 07/13/22 07:14 07/13/22 07:00 07/13/22 07:14 07/13/22 07:14 07/13/22 07:14 FiO2 25 07/12/22 08:00 Oxygen Flow Rate (L/min) 2 Oxygen Delivery Method Nasal Cannula Weight: 46.8 kg Body Mass Index (BMI) 16.6 Intake & Output: Intake and Output for Last 24 Hours 07/11/22 07/12/22 07/13/22 23:59 23:59 23:59 Intake Total 2058.50 / 2158.50 1214.83 / 1654.83 810 / 810 Output Total 1450 / 1450 1525 / 2225 900 / 900 Balance 608.50 / 708.50 -310.17 / -570.17 -90 / -90 Medical Nutrition Assessment Dietitian: Malnutrition Criteria Met Start: 07/10/22 08:19 Freq: Status: Active Protocol: Document 07/12/22 10:49 AG (Rec: 07/12/22 10:49 AG [id number]) Nutrition Malnutrition Evidence of Malnutrition Exists Yes Malnutrition (severe): Chronic Evidenced By Suboptimal Energy Intake ( Severe),Weight Loss (Severe), Physical Changes (Severe) Clinical Problem Chronic Disease or Condition Related Malnutrition Etiology Severe protein-calorie malnutrition in the context of chronic disease related to inadequate oral intake and increased energy expenditure Signs/Symptoms as evidenced by 17% wt loss x 1 year, BMI 15.8, muscle/fat wasting in the clavicle, face, temporal and orbital regions and PO intake meeting less than 50% estimated energy needs x past 6 months Status Active Problem Recommendation Dietitian Recommendations/Changes Liberalized regular diet given signs/symptoms of malnutrition. Magic cup BID with lunch and dinner and 120 mL ensure plus high protein 4 times per day with medpass for additional calories/protein if consumed. Lab / Micro Data Attestation: I reviewed the patient's lab results. Result Diagrams: 07/13/22 03:25 07/13/22 03:25 Labs: Laboratory Results - last 24 hr 07/12/22 05:20: Diff Path Review Reviewed 07/12/22 11:09: POC Glucose 134 H 07/12/22 16:10: POC Glucose 139 H 07/12/22 20:40: POC Glucose 164 H 07/13/22 03:25: WBC 3.4 L, RBC 3.53 L, Hgb 10.2 L, Hct 32.7 L, MCV 92.6, MCH 28.9, MCHC 31.2 L, RDW Std Deviation 42.2, RDW Coeff of Sami 12.5, Plt Count 184, MPV 10.9, Immature Gran % (Auto) 0.600, Neut % (Auto) 82.2 H, Lymph % (Auto) 8.6 L, [place] % (Auto) 8.6, Eos % (Auto) 0.0, Baso % (Auto) 0.0, Absolute Neuts (auto) 2.8, Absolute Lymphs (auto) 0.29 L, Nucleated RBC % 0, Differential Comment SCANNED, Diff Path Review November07/13/22 03:25: Sodium 137, Potassium 3.6, Chloride 96 L, Carbon Dioxide 38.0 H, Anion Gap 3 L, BUN 24 H, Creatinine 0.47 L, Estim Creat Clear Calc 89.55, Est GFR (MDRD) Af Amer 171, Est GFR (MDRD) Non-Af 141, BUN/Creatinine Ratio 50.7 H, Glucose 153 H, Calcium 8.7 07/13/22 06:32: POC Glucose 160 H Micro: Microbiology 07/09/22 19:25 Blood Culture (Wb) - Anticubital Left Blood Culture - Preliminary No growth in 48 hours. 07/10/22 01:00 Urine, Clean Catch Urine Culture - Final Culture exhibits no growth. 07/09/22 19:45 Blood Culture (Wb) - Anticubital Left Bacteria Detection (PCR) - Final Coag Negative Staph 07/09/22 19:45 Blood Culture (Wb) - Anticubital Left Blood Culture - Preliminary Coag Negative Staph 07/10/22 12:15 Mucosa - Nasopharyngeal Respiratory Panel (PCR) - Final 07/09/22 19:27 Nasal Secretion SARS-CoV-2 & FLU Antigen (Rapid) - Final Physical Exam Const alert, oriented x3 and no apparent distress Constitutional Narrative: On nasal cannula during my evaluation General Appearance: cooperative and frail HEENT normocephalic and head/scalp atraumatic HEENT Narrative: Dry mucous membranes Eyes PERRL, EOMs intact bilaterally and conjunctivae normal Neck supple General: trachea midline Chest Chest: abnormal inspection of the chest kyphotic and scoliotic Resp Resp Narrative: On BiPAP during the initial evaluation Effort and Inspection: prolonged expiratory phase Auscultation: diminished lung sounds; Negative for rales, rhonchi or wheezes Cardio regular rate, regular rhythm, S1 normal heart sound, S2 normal heart sound, no murmurs, no rub and no gallops GI normal to inspection, nondistended, normoactive bowel sounds Extremity General Extremity: clubbing; Negative for edema Skin Skin Narrative: Bruising over distal upper extremities. Neuro CN's II-XII intact bilaterally, moves all extremities and no focal motor deficits Psych cooperative and affect normal Charges/Coding Visit Charges Inpatient E&M: 76692 Subs Hosp L3
[2022-07-13] MEDS: guaiFENesin 1,200 MG Tablet 1200 MG PO (08:17)
[2022-07-13] MEDS: Acetaminophen 325 MG Tablet 650 MG PO (08:17)
[2022-07-13] MEDS: APIXABAN 5 MG TABLET PO (08:18)
[2022-07-13] MEDS: Ensure Plus High Protein 120 ML LIQUID PO (09:52)
[2022-07-13] MEDS: Ondansetron 4 MG/2 ML Vial IV (09:52)
[2022-07-13 11:41] LABS: Bedside Glucose 146 mg/dL (74-106)
--- NOTE | 2022-07-13 13:35 | CASEMGMT ---
Pt did not qualify for an increase in oxygen rx. Spoke with patient nurse who states that pt did well with therapy, although note is not currently in. Pt to dc home today.
--- NOTE | 2022-07-13 15:03 | DCINST_ITS ---
Discharge Instructions Diet Discharge Diet: No restrictions Activity Discharge Activity: Return to Normal Activity Dressing / Incision Call your doctor if you observe: Fever of 101 or Higher, Shortness of breath, Dizziness, Fainting spells, Swelling in the ankles, Chest pain and Increased palpitations (irregular heartbeat) Follow Up Care Test Results: Test results from this visit will be discussed in further detail at your follow- up appointment, if applicable. Discharge Plan Admission Admit Date/Time: 07/09/22 21:13 Attending Provider: Juan Collins Primary Care Provider: Isabel Rae Consulting Providers: Blayne Ochoa ; Vinicio Varghese ; Scottie Enamorado ; Peter Villarreal ; Bladimir Garcia ; Anthony Bradford ; Sapphire Orozco NP ; Paulette Garrison Discharge Orders/Prescriptions Prescriptions: New Eliquis 5 mg Tablet 5 mg PO BID Qty: 60 0RF diltiazem HCl [Cardizem CD] 180 mg capsule,extended release 24hr 180 mg PO DAILY Qty: 30 0RF prednisone 20 mg tablet 40 mg PO DAILY Qty: 17 0RF Rx Instructions: 2 tabs daily for 5 days, then 1 tab daily for 5 days, then half tab daily for 4 days Continued albuterol sulfate 2.5 mg /3 mL (0.083 %) solution for nebulization 2.5 mg inhalation Q6HWA.RT Qty: 120 11RF azelastine 205.5 mcg (0.15 %) spray,non-aerosol 1 spray intranasal BID Qty: 30 11RF Rx Instructions: administer into each nostril nicotine 14 mg/24 hr patch 24 hour 1 patch transdermal Q24H Qty: 28 1RF escitalopram oxalate 20 mg tablet 20 mg PO DAILY albuterol sulfate 90 mcg/actuation HFA aerosol inhaler 2 inh PO Q4H PRN Qty: 8.5 6RF Symbicort 160-4.5 mcg/actuation HFA aerosol inhaler 2 puff INHALATION BID Qty: 10.2 11RF Rx Instructions: administer with spacer, rinse mouth after each use guaifenesin 1,200 mg tablet extended release 12hr 1,200 mg PO Q12H Qty: 60 6RF lisinopril 10 MG tablet 10 mg PO DAILY acetaminophen 500 MG tablet 1,000 mg PO DAILY PRN PRN (Reason: Pain Or Fever) Spiriva Respimat 1.25 mcg/actuation Mist 2 puff INHALATION DAILY Referrals / Follow Up: Isabel Rae [Primary Care Provider] - Within 1 Week Disposition Disposition (needs filled in before D/C Order can be placed): Home, Self Care
--- NOTE | 2022-07-13 15:30 | DS.PCM_ITS ---
Providers Date of Admission: 07/09/22 Primary Care Physician: Dr. Isabel Rae Consultations 07/11/22 09:54 Consult: Card Mounter / Pulmonary Medicine Routine Consulting Provider: Pulmonary Medicine emilie Resendiz Reason for Consult: Respiratory Failure EMERGENT Consult: No MD Notified: Yes Date Notified: 07/11/22 Time Notified: 09:54 Method of Notification: Text Reason For Visit: ACUTE HYPERCAPNIC RESPIRATORY FAILURE Diagnosis Discharge Diagnosis (1) Respiratory failure: Status: Acute Code(s): J96.90 - Respiratory failure, unspecified, unspecified whether with hypoxia or hypercapnia Qualifiers: Chronicity: acute on chronic Respiratory failure complication: hypercapnia Qualified Code(s): J96.22 - Acute and chronic respiratory failure with hypercapnia (2) Afib: Status: Acute Code(s): I48.91 - Unspecified atrial fibrillation (3) DONNA (obstructive sleep apnea): Status: Chronic Code(s): G47.33 - Obstructive sleep apnea (adult) (pediatric) (4) Stage 4 very severe COPD by GOLD classification: Status: Chronic Code(s): J44.9 - Chronic obstructive pulmonary disease, unspecified Medications at Discharge Home Medications acetaminophen 500 mg tablet 1,000 mg PO DAILY PRN PRN Pain Or Fever 10/04/18 lisinopril 10 mg tablet 10 mg PO DAILY BP 10/04/18 albuterol sulfate 2.5 mg/3 mL (0.083 %) solution for nebulization 2.5 mg (3 mL) inhalation Q6HWA.RT ##120 08/20/20 azelastine 205.5 mcg (0.15 %) nasal spray 1 spray intranasal BID #30 mL 11/23/21 nicotine 14 mg/24 hr daily transdermal patch 1 patch transdermal Q24H #28 ea 03/01/22 albuterol sulfate 90 mcg/actuation aerosol inhaler 2 inh PO Q4H PRN #8.5 grams 07/06/22 budesonide-formoterol HFA 160 mcg-4.5 mcg/actuation aerosol inhaler (Symbicort) 2 puff inhalation BID #10.2 grams 07/06/22 escitalopram oxalate 20 mg tablet 20 mg PO DAILY 07/06/22 guaifenesin 1,200 mg tablet, extended release 12 hr 1,200 mg PO Q12H #60 tabs 07/06/22 tiotropium bromide 1.25 mcg/actuation mist for inhalation (Spiriva Respimat) 2 puff inhalation DAILY 07/09/22 apixaban 5 mg tablet (Eliquis) 5 mg PO BID #60 tabs 07/13/22 diltiazem HCl 180 mg capsule,extended release 24 hr (Cardizem CD) 180 mg PO DAILY #30 caps 07/13/22 prednisone 20 mg tablet 40 mg PO DAILY #17 tabs 07/13/22 Hospital Course Operations None Procedures 2-D Echocardiogram Summary of Care Provided Minutes Spent on Discharge: 45 Hospital Course: Per HPI: KARYNA SALEH, is a 61 F with a significant history of end-stage COPD who presents emergency department with unresponsiveness.? Reportedly patient was diaphoretic on arrival.? Per her significant other patient is a DO NOT INTUBATE so patient was not intubated.? She was placed on the BiPAP with improvement.? Her initial ABG showed severely elevated CO2. Patient report that on the day of presentation she was lightheaded.? She reports shortness of breath.? She reports a dry cough.? She denies wheezing. She reported 3 days before presentation she had a flu shot and then felt nauseous after that. Hospital Course: 1. Acute on chronic hypoxic and hypercapnic respiratory failure secondary to acute exacerbation of COPD?61-year-old female presented to the hospital with unresponsiveness and significant hypercapnia. She is a DO NOT INTUBATE so she was immediately placed on BiPAP secondary to an ABG demonstrating significantly elevated CO2. She is also noted to have significant oxygen requirements and this was initially felt to be due to COPD however she did go into A. fib and is thought that this could be contributing to her shortness of breath. She was monitored in the ICU and there is multiple discussions about the possibility of needing intubation at which point she did change her CODE STATUS to full code. However she did not need to be intubated. She is maintained on Vanco and Zosyn however it was obvious that there is no infectious etiology, she did have 1 blood culture vial out of 4 come back positive for staph epi. This is consistent with contamination. Today she is down to her normal oxygen requirement and she did not need any oxygen be on 2 L nasal cannula either at rest or with ambulation. She was evaluated by PT and OT who did not feel like she merited detention facility placement. I discussed with her the plan for possible discharge today she expressed understanding of the risk and benefits of going home and would like to go home today. Will continue with a steroid taper as well as her home inhalers. She will not need any antibiotics on discharge. I also recommend that she follow-up with her PCP in 3 to 5 days. 2. Paroxysmal A. fib/chronic systolic CHF with a nonischemic cardiomyopathy/elevated troponin/HTN?she has been going in and out of of A. fib and this is likely contributing to her shortness of breath. Her heart rate has now come under control with p.o. Cardizem so we will plan on 180 mg of Cardizem daily on discharge as well as Eliquis. She has suspected type II non-STEMI and her troponin is related to demand ischemia. I do recommend outpatient follow-up with cardiology at a later date. Her echo was unchanged. Physical Exam Narrative General: Alert, Oriented x3, Cooperative, No apparent distress HEENT: Atraumatic, PERRLA, EOMI, Normocephalic Oral: Moist Mucosa Neck: Supple, No JVD Lungs: Diminished, Normal air movement, No rhonchi, No wheeze, No rales Cardiovascular: Regular rate, Regular Rhythm, Normal S1, Normal S2, No murmurs Abdomen: Soft, Non Tender, Non-Distended, No Hepato-splenomegaly Extremities: No edema, Capillary Refill Less than 3 Seconds Skin: No rashes, No breakdown Musculoskeletal: No Tenderness to Palpation of Joints or Extremities Neurological: Cranial nerves II-XII grossly intact, Motor Exam 5/5 strength throughout, Sensory exam intact to light touch and pain Psych/Mental Status: Normal Affect, Appropriate Medical Records Data Medical Nutrition Assessment Dietitian: Malnutrition Criteria Met Start: 07/10/22 08:19 Freq: Status: Active Protocol: Document 07/12/22 10:49 AG (Rec: 07/12/22 10:49 AG [id number]) Nutrition Malnutrition Evidence of Malnutrition Exists Yes Malnutrition (severe): Chronic Evidenced By Suboptimal Energy Intake ( Severe),Weight Loss (Severe), Physical Changes (Severe) Clinical Problem Chronic Disease or Condition Related Malnutrition Etiology Severe protein-calorie malnutrition in the context of chronic disease related to inadequate oral intake and increased energy expenditure Signs/Symptoms as evidenced by 17% wt loss x 1 year, BMI 15.8, muscle/fat wasting in the clavicle, face, temporal and orbital regions and PO intake meeting less than 50% estimated energy needs x past 6 months Status Active Problem Recommendation Dietitian Recommendations/Changes Liberalized regular diet given signs/symptoms of malnutrition. Magic cup BID with lunch and dinner and 120 mL ensure plus high protein 4 times per day with medpass for additional calories/protein if consumed. Weight / BMI Weight Weight: 103 lb 2.821 oz Body Mass Index (BMI) 16.6 ABG / Lab / Microbiology Data Result Diagrams: 07/13/22 03:25 07/13/22 03:25 Laboratory: Laboratory Results - last 24 hr 07/12/22 16:10: POC Glucose 139 H 07/12/22 20:40: POC Glucose 164 H 07/13/22 03:25: WBC 3.4 L, RBC 3.53 L, Hgb 10.2 L, Hct 32.7 L, MCV 92.6, MCH 28.9, MCHC 31.2 L, RDW Std Deviation 42.2, RDW Coeff of Sami 12.5, Plt Count 184, MPV 10.9, Immature Gran % (Auto) 0.600, Neut % (Auto) 82.2 H, Lymph % (Auto) 8.6 L, [place]flower % (Auto) 8.6, Eos % (Auto) 0.0, Baso % (Auto) 0.0, Absolute Neuts (auto) 2.8, Absolute Lymphs (auto) 0.29 L, Nucleated RBC % 0, Differential Comment SCANNED, Diff Path Review November07/13/22 03:25: Sodium 137, Potassium 3.6, Chloride 96 L, Carbon Dioxide 38.0 H, Anion Gap 3 L, BUN 24 H, Creatinine 0.47 L, Estim Creat Clear Calc 89.55, Est GFR (MDRD) Af Amer 171, Est GFR (MDRD) Non-Af 141, BUN/Creatinine Ratio 50.7 H, Glucose 153 H, Calcium 8.7 07/13/22 06:32: POC Glucose 160 H 07/13/22 11:22: POC Glucose 146 H Microbiology: Microbiology 07/09/22 19:25 Blood Culture (Wb) - Anticubital Left Blood Culture - Preliminary No growth in 48 hours. 07/10/22 01:00 Urine, Clean Catch Urine Culture - Final Culture exhibits no growth. 07/09/22 19:45 Blood Culture (Wb) - Anticubital Left Bacteria Detection (PCR) - Final Coag Negative Staph 07/09/22 19:45 Blood Culture (Wb) - Anticubital Left Blood Culture - Preliminary Coag Negative Staph 07/10/22 12:15 Mucosa - Nasopharyngeal Respiratory Panel (PCR) - Final 07/09/22 19:27 Nasal Secretion SARS-CoV-2 & FLU Antigen (Rapid) - Final D/C Instructions Discharge Diet: No restrictions Call your doctor if you observe: Fever of 101 or Higher, Shortness of breath, Dizziness, Fainting spells, Swelling in the ankles, Chest pain and Increased palpitations (irregular heartbeat) Meaningful Use Info Meaningful Use Diagnoses (Choose all that apply): None applicable Discharge Plan Admission Admit Date/Time: 07/09/22 21:13 Attending Provider: Juan Collins Primary Care Provider: Isabel Rae Consulting Providers: Blayne Ochoa ; Vinicio Varghese ; Scottie Enamorado ; Peter Schofield ; Bladimir Garcia ; Anthony Bradford ; Sapphire Orozco NP ; Paulette Garrison Discharge Orders/Prescriptions Prescriptions: New Eliquis 5 mg Tablet 5 mg PO BID Qty: 60 0RF diltiazem HCl [Cardizem CD] 180 mg capsule,extended release 24hr 180 mg PO DAILY Qty: 30 0RF prednisone 20 mg tablet 40 mg PO DAILY Qty: 17 0RF Rx Instructions: 2 tabs daily for 5 days, then 1 tab daily for 5 days, then half tab daily for 4 days Continued albuterol sulfate 2.5 mg /3 mL (0.083 %) solution for nebulization 2.5 mg inhalation Q6HWA.RT Qty: 120 11RF azelastine 205.5 mcg (0.15 %) spray,non-aerosol 1 spray intranasal BID Qty: 30 11RF Rx Instructions: administer into each nostril nicotine 14 mg/24 hr patch 24 hour 1 patch transdermal Q24H Qty: 28 1RF escitalopram oxalate 20 mg tablet 20 mg PO DAILY albuterol sulfate 90 mcg/actuation HFA aerosol inhaler 2 inh PO Q4H PRN Qty: 8.5 6RF Symbicort 160-4.5 mcg/actuation HFA aerosol inhaler 2 puff INHALATION BID Qty: 10.2 11RF Rx Instructions: administer with spacer, rinse mouth after each use guaifenesin 1,200 mg tablet extended release 12hr 1,200 mg PO Q12H Qty: 60 6RF lisinopril 10 MG tablet 10 mg PO DAILY acetaminophen 500 MG tablet 1,000 mg PO DAILY PRN PRN (Reason: Pain Or Fever) Spiriva Respimat 1.25 mcg/actuation Mist 2 puff INHALATION DAILY Referrals / Follow Up: Isabel Rae [Primary Care Provider] - Within 1 Week Disposition Disposition (needs filled in before D/C Order can be placed): Home, Self Care Charges/Coding Visit Charges Inpatient E&M: 85693 [facility] Hosp
[2022-07-13 15:35] LABS: Pathologist Review Reviewed
== END 2022-07-13 16:30 | disposition home or self-care (01) | DRG 189 ==
LOC: ED 21:35 → ICU 23:02 → MS3 07-10 00:28 → PCU 07-10 02:51 → ICU 07-10 18:03
PROVIDERS: Internal Medicine; Admitting Provider Hospitalist; Emergency Provider Emergency Medicine; Visit Provider Family Medicine
DX: J96.22 Acute and chronic respiratory failure with hypercapnia (principal); E43 Unspecified severe protein-calorie malnutrition; G93.40 Encephalopathy, unspecified; I24.8 Other forms of acute ischemic heart disease; D68.59 Other primary thrombophilia; E87.29 Other acidosis; J44.1 Chronic obstructive pulmonary disease with (acute) exacerbation; I50.22 Chronic systolic (congestive) heart failure; Z68.1 Body mass index [BMI] 19.9 or less, adult; J96.21 Acute and chronic respiratory failure with hypoxia; I11.0 Hypertensive heart disease with heart failure; I48.0 Paroxysmal atrial fibrillation; I48.91 Unspecified atrial fibrillation; I25.5 Ischemic cardiomyopathy; F43.9 Reaction to severe stress, unspecified; E78.5 Hyperlipidemia, unspecified; G47.33 Obstructive sleep apnea (adult) (pediatric); E87.5 Hyperkalemia; I34.0 Nonrheumatic mitral (valve) insufficiency; F17.210 Nicotine dependence, cigarettes, uncomplicated; I25.2 Old myocardial infarction; Z66 Do not resuscitate; Z79.51 Long term (current) use of inhaled steroids
CPT/HCPCS: 36415; 36600; 71045; 80048; 80053; 80202; 81001; 82803; 82962; 83036; 83605; 83735; 84100; 84443; 84484; 85025; 87040; 87086; 87149; 87428; 87633; 93005; 93306; 94002; 94003; 94640; 94762; 97110; 97162; 97166; 97802; 97803; 99251; 99285; J7030; J7050; A4216; G0463; J1940; J2405

== ENCOUNTER 2023-07-24 10:32 | Inpatient (IN) | payer MEDICARE, MEDICAID, SELFPAY ==
[2023-07-24] VITALS (27 sets, daily range): BP systolic 82–140; BP diastolic 41–103; PULSE 73–139; RESP 12–34; TEMP 36.1–38.3; O2SAT 90–100; BMI 15.6; BMI 16.0
--- NOTE | 2023-07-24 10:41 | ED.VIS.DYS ---
HPI History of Present Illness Chief Complaint: Shortness of Breath Informant: patient and spouse/S.O. Narrative Narrative: Patient was pulled from a car with significant dyspnea. Patient is very lethargic but she is able to answer questions appropriately. It is hard to get the details from her or her significant other though. She is evidently been getting weak for a while. I cannot get how long that means. But she is not getting up out of bed much. When I specifically ask it sounds like she may have had some black bowel movements but it is not certain. Significant other is certain that she is on Eliquis. He states this is for history of atrial fibrillation although that is not on her diagnosis list he states she has had that. She also has severe COPD. She is on home oxygen. No history of liver disease. History is very limited due to her significant dyspnea and lethargy. Review of systems are also quite limited. [facility] Medical History Acute on chronic respiratory failure with hypoxia and hypercapnia Afib Chronic respiratory failure with hypoxia Elevated troponin I level Essential (primary) hypertension History of non-ST elevation myocardial infarction (NSTEMI) (06/21/19) Hyperglycemia Hyperlipidemia Leukocytosis Non-ischemic cardiomyopathy On home oxygen therapy DONNA (obstructive sleep apnea) Protein calorie malnutrition Smoker Stage 4 very severe COPD by GOLD classification Home Medications acetaminophen 500 mg tablet 1,000 mg PO DAILY PRN PRN Pain Or Fever 10/04/18 [History Last Taken 06/13/19] lisinopril 10 mg tablet 10 mg PO DAILY BP 10/04/18 [History Last Taken 06/14/19] albuterol sulfate 2.5 mg/3 mL (0.083 %) solution for nebulization 2.5 mg (3 mL) inhalation Q6H #180 mL 12/30/22 [Rx Last Taken Unknown] Disability Placard #1 ea 03/15/23 [Rx Last Taken Unknown] apixaban 5 mg tablet (Eliquis) 5 mg PO BID #60 tabs 03/15/23 [Rx Last Taken Unknown] tiotropium bromide 1.25 mcg/actuation mist for inhalation (Spiriva Respimat) 2 puff inhalation DAILY #4 grams 03/15/23 [Rx Last Taken Unknown] budesonide-formoterol HFA 160 mcg-4.5 mcg/actuation aerosol inhaler (Symbicort) 2 puff inhalation BID #10.2 grams 05/26/23 [Rx Last Taken Unknown] albuterol sulfate 90 mcg/actuation aerosol inhaler 2 inh PO Q4H PRN shortness of breath or wheezing #8.5 grams 06/24/23 [Rx Last Taken Unknown] pantoprazole 40 mg tablet,delayed release mg PO 07/24/23 [History Last Taken Unknown] Allergy/AdvReac Type Severity Reaction Status Date / Time atorvastatin [From Lipitor] Allergy Unknown Unknown Verified 03/21/23 11:43 codeine Allergy Rash Verified 03/21/23 11:43 ibuprofen Allergy Rash Verified 03/21/23 11:43 Family History Father Lung cancer Mother Breast cancer Parkinsons disease Surgical History H/O tubal ligation Social History household members: significant other housing: house Smoking Status: Current every day smoker tobacco type: cigarettes alcohol intake: never substance use type: does not use ROS ROS ED ROS Narrative Very limited. Cardiovascular Cardiovascular: Denies chest pain Respiratory/Chest Respiratory/Chest: Reports cough and dyspnea Gastrointestinal Gastrointestinal: Reports other Details: There may be a history of some abdominal discomfort and possible melena. Neurologic Neurologic: Reports other Details: She has had slowly worsening generalized weakness but no report of any focal symptom. EXAM Physical Exam Narrative Exam Narrative: CONSTITUTIONAL: Patient is dyspneic, somewhat sleepy, she does look pale. When I talk to her significant other he thinks this is pallor than she normally looks. But he is not sure when this started. HEENT: No notable trauma. Mucous membranes mildly dry. EYES: No conjunctival injection. She does show some conjunctival pallor. NECK:No JVD. No stridor. CARDIOVASCULAR: Tachycardic rate. Irregular rhythm. No notable murmur. No JVD. RESPIRATORY:'s increased respiratory effort. Very poor air motion. There is almost no wheeze but I do not think there is any air motion to create a wheeze. She has increased AP diameter consistent with severe COPD. GASTROINTESTINAL: Not distended. Bowel sounds are normal. Despite her possible history of discomfort, I get no tenderness on exam. No guarding. No rebound. GENITOURINARY: No tenderness over the bladder. No CVA tenderness. MUSCULOSKELETAL: Atraumatic. No peripheral edema. No cord. No tenderness along the deep venous system. No asymmetry. No distended veins. There is some pallor. NEUROLOGICAL: Patient is awake. She can tell her name and date of . She can give some basic history. But she is still somewhat sleepy. I had trouble having her give me the current year. Clinically I have a suspicion of some increased CO2 retention. SKIN: No noted rashes. No diaphoresis. PSYCHIATRIC: Patient is calm. Mood is appropriate. Const Vital Signs: 07/24/23 10:34 07/24/23 10:36 07/24/23 10:38 Temperature 96.9 F L 96.9 F L Temperature Source Temporal Temporal Pulse Rate 98 139 H Respiratory Rate 31 H 34 H Respiratory Effort Short of Breath Accessory Muscle Use Respiratory Depth Shallow Respiratory Pattern Blood Pressure 122/85 H 122/85 H Blood Pressure Mean 97 97 Pulse Ox 95 93 Oxygen Delivery Method Nasal Cannula Nasal Cannula Oxygen Flow Rate (L/min) 4 Fraction of Inspired Oxygen (FIO2) 07/24/23 10:41 07/24/23 11:53 07/24/23 12:00 Temperature Temperature Source Pulse Rate 127 H 134 H Respiratory Rate 22 H Respiratory Effort Respiratory Depth Respiratory Pattern Blood Pressure 116/41 L 140/93 H Blood Pressure Mean 66 108 Pulse Ox 94 99 Oxygen Delivery Method Bi-pap Bi-pap Mechanical Ventilator Oxygen Flow Rate (L/min) 60 Fraction of Inspired Oxygen (FIO2) 50 70 07/24/23 10:38 07/24/23 10:57 07/24/23 10:57 Temperature Temperature Source Pulse Rate 130 H 134 H Respiratory Rate 14 14 Respiratory Effort Respiratory Depth Respiratory Pattern Blood Pressure Blood Pressure Mean Pulse Ox 90 Oxygen Delivery Method Oxygen Flow Rate (L/min) Fraction of Inspired Oxygen (FIO2) 60 50 07/24/23 12:44 Temperature Temperature Source Pulse Rate 111 H Respiratory Rate 16 Respiratory Effort Respiratory Depth Respiratory Pattern Normal Blood Pressure Blood Pressure Mean Pulse Ox 100 Oxygen Delivery Method Oxygen Flow Rate (L/min) Fraction of Inspired Oxygen (FIO2) 70 MDM MDM MDM Narrative Medical decision making narrative: Patient is quite ill. She has significant COPD with poor air motion but she is maintaining saturations with oxygen. Since she is still talking and able to give us some appropriate answers and has [place] respiratory rate, I will try BiPAP on her. But she may end up getting intubated if she does not rapidly improve. We will also do blood work. There is certainly concern for anemia. This history of GI bleed will be researched further. I will see if I get a stool sample. We may do further imaging of chest and/or abdomen. Will also get EKG. She appears to be in atrial fibrillation with tachycardic rate at this time. But some of this increased rate may be compensatory with her significant illness. 11:00 Patient is rechecked. She is actually breathing better. She is more alert. She is denying any pain. She has no pain in her chest or abdomen. She told me what the year was. It was 20 something but I could not understand the last number. But she did know Carmen was the president. I did do rectal exam with the nurse Eduardo in attendance. There is no black or blood seen. I fob was sent off. There is only a small amount of light barros stool on it. No clinical evidence of acute GI bleed. My independent interpretation of the patient's single view but to image AP chest x-ray shows hyperinflation consistent with severe COPD. There are some chronic increased markings likely from scarring but no defined infiltrate. No pneumothorax. Final reading is pending. Patient CBC does show a high white count and this is high for her. She has anemia but is at her baseline. Platelets are normal. Lactic acid is normal at 1.2. Patient's BNP he is minimally up at 144.1. Patient's magnesium is normal at 2.3. We repeated the patient's blood gas. We did do an ABG this time. Her pH is just minimally improved at 7.246. We did discuss the case with the hospitalist the hospitalist came down. We agree that the patient although has made may be some small trend toward improvement, she is still sleepy, lethargic, not moving great air and still mildly acidotic. She has been 2 hours attempting to improve this with BiPAP and breathing treatments. Discussion was had and was decided to intubate. Hospitalist intubated the patient. I did look at the postintubation x-ray as the patient was still in the ED. Both ET tube and NG tube look to be in good position. Lab Data Attestation: I reviewed the patient's lab results. Labs: Laboratory Results - last 24 hr 07/24/23 07/24/23 10:35 10:45 WBC 13.4 H RBC 4.43 Hgb 10.7 L Hct 39.9 MCV 90.1 MCH 24.2 L MCHC 26.8 L RDW Std Deviation 46.6 H RDW Coeff of Sami 14.2 Plt Count 252 MPV 11.7 Immature Gran % (Auto) 0.300 Neut % (Auto) 89.9 H Lymph % (Auto) 4.8 L [place] % (Auto) 4.6 Eos % (Auto) 0.1 Baso % (Auto) 0.3 Absolute Neuts (auto) 12.1 H Absolute Lymphs (auto) 0.64 L Nucleated RBC % 0 Sodium 137 Potassium 5.0 Chloride 96 L Carbon Dioxide 44.0 H Anion Gap -3 L BUN 24 H Creatinine 0.42 L Estim Creat Clear Calc 96.77 Est GFR (MDRD) Af Amer 194 Est GFR (MDRD) Non-Af 160 BUN/Creatinine Ratio 56.9 H Glucose 149 H Lactic Acid 1.2 Calcium 10.1 Magnesium 2.3 Total Bilirubin 0.20 AST 10 L ALT 13 Alkaline Phosphatase 72 Troponin I High Sens 78 H B-Natriuretic Peptide 144.1 H Total Protein 7.3 Albumin 3.2 Globulin 4.1 Albumin/Globulin Ratio 0.8 L Blood Type A POSITIVE Antibody Screen NEGATIVE ABG Data ABG results: ABG 07/24/23 07/24/23 10:46 12:18 Specimen Type MILE ART Sample Site Not entered R Radial pH 7.25 L Bicarbonate Actual 49.7 H Total CO2 > 50 Base Excess 22 H O2 Saturation 92 L O2 % 2.0 60.0 ABG pCO2 114.4 H* ABG pO2 80 Arnoldo Test Positive VBG pH 7.24 L VBG pO2 30 VBG HCO3 47 H VBG O2 Sat (Calc) 41 L VBG Base Excess 20 H POC Mix VBG pCO2 Pt Tmp 111.1 H* Respiration Rate 12 O2 Delivery Device Not entered BiPAP Vent Mode avaps Tidal Volume 400.0 POC PEEP 12 Crit Call To/Read Back Yes Yes Blood Gas Notified Whom ivan carlson Blood Gas Notified Time 10:47:53 12:20:07 Clinical Comments Radiography Diagnostic Testing: Clinical Impression(s) from Imaging Studies Chest X-Ray 07/24/23 11:05 IMPRESSION: Stable chest with no acute or active cardiopulmonary disease. Electronically Signed: Michael Yuen MD at 11:27 EST , EKG Initial EKG: Comments: My independent interpretation of the patient's EKG shows what does appear to actually be a sinus rhythm with frequent PACs and an overall rate of 131. On the monitor this appeared to be atrial fibrillation. But her EKG does appear to show consistent P waves. No ventricular ectopy. There is some baseline artifact but no acute ST elevation. MN interval, QRS duration and QTc are normal. Critical Care Time Critical Care Time: Yes Critical care time (excluding procedures): 30-74 minutes, Discussing w/Patient &/or Family/Civil Engineer, Discussing w/Consultants, Arranging Admission or Transfer, Performing Direct Patient Care at Bedside and - (45 minutes. Multiple repeats about evaluation, altering therapy, charting and discussing with sales enablement consultant.) Discharge Plan Dx/Rx/DC Orders Clinical Impression: Acute on chronic respiratory acidosis, COPD with acute exacerbation, Respiratory failure Disposition Disposition: [facility]
[2023-07-24 10:51] LABS: Blood Gas Specimen Type VEN; O2 Delivery Device Not entered; SITE Not entered; Time Given 10:47:53; VBG BASE EXCESS 20 mmol/L (-1.0-3.5); VBG Bicarbonate 47 mmol/L (22-26); VBG PO2 30 mmHg (25-40); VBG SO2 41 % (50-70); VBG pCO2 111.1 mmHg (41-51); VBG pH 7.24 (7.32-7.42)
[2023-07-24] MEDS: Ipratropium/Albuterol Sulfate 3 ML AMPUL.NEB INHALATION ×3 (10:52→23:35)
[2023-07-24] MEDS: Albuterol 2.5 MG/3 ML VIAL.NEB. INHALATION (10:52)
[2023-07-24 10:53] LABS: Absolute Lymphocyte Count 0.64 X10^3/uL (0.83-4.51); Absolute Neutrophil Count 12.1 X10^3/uL (2.0-7.7); Basophil# 0.04 X10^3/uL; Basophil% 0.3 % (0-1); Eosinophil# 0.01 X10^3/uL; Eosinophils% 0.1 % (0-5); Hematocrit 39.9 % (37-47); Hemoglobin 10.7 g/dL (12.0-15.0); Lymphocyte # 0.64 X10^3/ul (0.83-4.51); Lymphocyte % 4.8 % (19-41); Mean Corp Hgb Conc 26.8 g/dL (32-36); Mean Corpuscular Hgb 24.2 pg (27.0-32.0); Mean Corpuscular Volume 90.1 fL (81-99); Mean Platelet Vol. 11.7 fl (6.2-12.0); Monocyte# 0.61 X10^3/uL; Monocyte% 4.6 % (0-10); NRBC Flagged by Analyzer 0 % (0-5); Neutrophil # 12.05 X10^3/uL (2.7-7.7); Neutrophil % 89.9 % (47-70); Platelet Count 252 K/mm3 (150-450); RBC Distribution Width CV 14.2 % (11.6-14.6); RBC Distribution Width SD 46.6 fl (35.1-43.9); Red Blood Count 4.43 M/mm3 (4.2-5.4); White Blood Count 13.4 K/mm3 (4.4-11.0)
[2023-07-24] MEDS: MethylPREDNISolone 125 MG/2 ML Vial IV (10:53)
--- NOTE | 2023-07-24 11:05 | RAD_ITS ---
STUDY: X-RAY CHEST REASON FOR EXAM: Female, 62 years old. Shortness of breath. TECHNIQUE: Single frontal view of the chest on 2 images. COMPARISON: July 11, 2022 FINDINGS: Stable hyperinflation. There is no demonstrated pleural abnormality. Cardiomegaly unchanged. Normal mediastinum and celsa. Normal visualized pulmonary arteries. Stable aortic tortuosity with calcification. Normal visualized thoracic spine. Multiple left healed rib fractures, unchanged. No abnormality of the visualized soft tissue structures of the upper abdomen. RAD/Chest 1 View (Portable) IMPRESSION: Stable chest with no acute or active cardiopulmonary disease. Electronically Signed: Michael Yuen MD at 11:27 EST ,
[2023-07-24 11:09] LABS: Magnesium 2.3 mg/dL (1.6-2.6)
[2023-07-24 11:11] LABS: BNP,B-Type NATRIURETIC PEPTIDE 144.1 pg/mL (0-100)
[2023-07-24 11:20] LABS: Lactic Acid 1.2 mmol/L (0.4-1.9)
[2023-07-24 11:30] LABS: ALB/GLOB Ratio 0.8 RATIO (0.9-2.4); AST(SGOT) 10 U/L (15-37); Alanine Aminotransfer ALT/SGPT 13 U/L (13-56); Albumin, Serum 3.2 g/dL (3.2-5.0); Alkaline Phosphatase 72 U/L (45-117); Anion Gap -3 (5-15); BUN 24 mg/dL (7-18); BUN/Creat Ratio 56.9 RATIO (10-20); Calcium,Total 10.1 mg/dL (8.5-10.1); Chloride 96 mmol/L (98-107); Creatinine, Serum 0.42 mg/dL (0.55-1.02); EST Glomerular Filtration Rate 160 mL/min (>60); Est Glom Filt Rate - Afr Amer 194 mL/min (>60); Estimated Creatinine Clearance 96.77 ml/min; Globulin 4.1 g/dL (2.2-4.2); Glucose 149 mg/dL (74-106); Protein, Total 7.3 g/dL (6.4-8.2); Sodium Level 137 mmol/L (136-145); Troponin-I HS 78 pg/mL (3.0-54.0)
--- OUTSIDE RECORDS SUMMARY | 2023-07-24 11:35 | XMS RPT_ITS | CCD ---
Author Name Unknown Address [address] [place] [address] Organization [facility] Care Team Providers Care Electrician Supervisor Name Role Phone RENATO CALHOUN (BRIAN-Chela) Referring Unavai lable Unavailable Primary Care Provider Unavailabl e Allergies Allergy Classification Reported Allergen(s) Allergy Type Date of Onset Reaction(s) Facility (1 source) Codeine; Translations: [CODEINE] Drug Allergy 10-04-2018 [facility] Repository (2 sources) Ibuprofen; Translations: [IBUPROFEN] Drug Allergy 10-04-2018 Rash [facility] Repository (1 source) HYDROcodone Drug Allergy 03-20-2022 Itching [facility] Medications Current Medications Medication Drug Class(es) Dates Sig (Normalized) Sig (Original) predniSONE 50 mg oral tablet (1 source) Start: 03-21-2022 End: 03-26-2022 take 1 tablet by mouth once daily predniSONE (DELTASONE) 50 MG tablet Take 1 tablet by mouth daily for 5 days 5 tablet 0 03/21/2022 03/26/2022 Active sodium chloride flush 0.9 % injection 3 mL (1 source) Start: 03-20-2022 sodium chloride flush 0.9 % injection 3 mL Completed/Discontinued Medications Medication Drug Class(es) Dates Sig (Normalized) Sig (Original) methylPREDNISolone 125 mg injection (1 source) Corticosteroid Start: 2 End: 2 methylPREDNISolone sodium (SOLU-MEDROL) injection 125 mg Problems Problem Classification Problem Date Documented Da te Episodic/Chronic Chronic obstructive pulmonary disease and bronchiectasis (2 sources) Chronic obstructive pulmonary disease, unspecified; Translations: [Acute exacerbation of chronic obstructive airways disease] Onset: 10-04-2018 Chronic Other lower respiratory disease (1 source) Shortness of breath; Translations: [Shortness of breath] Onset: 10-04-2018 Episodic Results Test Name Value Interpretation Reference Range Facil ity Vital Signs Date Time Vital Sign Value Performing Clinician Faci lity 03-20-2022 22:43-0400 Body height 170.2 cm Jhonatan Nesheim DO Work Phone: [facility] 03-20-2022 22:43-0400 Body mass index (BMI) [Ratio] 20.36 kg/m2 Jhonatan Nesheim DO Work Phone: [facility] 03-20-2022 22:43-0400 Body temperature 98.29 [degF] Jhonatan Nesheim DO Work Phone: [facility] 03-20-2022 22:43-0400 Body weight 58.97 kg Jhonatan Nesheim DO Work Phone: [facility] 03-20-2022 22:43-0400 Diastolic blood pressure 89 mm[Hg] Jhonatan Nesheim DO Work Phone: [facility] 03-20-2022 22:43-0400 Heart rate 122 /min Jhonatan Nesheim DO Work Phone: [facility] 03-20-2022 22:43-0400 Respiratory rate 22 /min Jhonatan Nesheim DO Work Phone: [facility] 03-20-2022 22:43-0400 SaO2% (BldA) [Mass fraction] 97 % Jhonatan Nesheim DO Work Phone: [facility] 03-20-2022 22:43-0400 Systolic blood pressure 150 mm[Hg] Jhonatan Nesheim D O Work Phone: [facility] Encounters Encounter Date Encounter Type Care Provider Facility Start: 03-20-2022 End: 03-21-2022 Emergency department patient visit Jhonatan G Nesheim DO Work Phone: [facility] Procedures Date Procedure Procedure Detail Performing Clinician Start: 03-20-2022 Comprehensive metabo lic panel Jhonatan G Nesheim DO Work Phone: Start: 03-20-2022 Radiologic exam ches t single view Jhonatan G Nesheim DO Work Phone: Plan of Treatment Date Care Activity Detail Author Start: 03-24-2022 Influenza vaccination Flu vaccine (# 1) [facility] Start: 1977 DTaP/Tdap/Td vaccine (1 - Tdap) DTaP/Tdap/Td vaccine (1 - Tdap) [facility] Start: 05-31-1961 COVID-19 Vaccine (#1) COVID-19 Vacci ne (#1) [facility] End: 03-20-2022 EKG 12 Lead - Chest Pain EKG 12 Lead - Chest Pain ECG STAT One Time for 1 Occurrences starting 03/20/2022 until 03/20/2022 [facility] Work Phone: Social History Date Type Detail Facility Tobacco smoking stat [facility] Tobacco smoking consumption unknown [facility] Start: 03-21-2022 History SDOH Alcohol Frequency [address] [facility] Work Phone: Start: 03-21-2022 History SDOH Alcohol Std Drinks [address] [facility] Work Phone: Start: 1960 Sex Assigned At Not on file [facility] Work Phone: Start: 03-10-2022 End: 03-21-2022 Exposure to SARS-CoV-2 (event) Not sure [facility] Work Phone: Hospital Discharge instructions 03-21-2022 Discharge InstructionsAttachments Note Date & Type Note Facility 03-21-2022 Hospital Discharg e instructions Jhonatan Ornelas DO - 03/21/2022 1:32 AM EDT Please follow-up with your medical anthropologist later today as we discussed. If you have any worsening shortness of breath, develop chest pain or other symptoms, please return the emergency department. I have prescribed an additional course of prednisone for you to take in the outpatient setting. The following attachments cannot be sent through Care Everywhere.COPD Exacerbation Plan (Kiswahili)COPD: General Info (Kiswahili)documented in this encounter [facility] Work Phone: Evaluation note Note Date & Type Note Facility documented in this encounter [facility] Work Phone: Summary Purpose Family History No Family History Records FoundNo Family History Records FoundNo Family History Records FoundNo Family History Records Found Advance Directives No Advanced Directives Records FoundNo Advanced Directives Records FoundNo Advanced Directives Records FoundNo Advanced Directives Records Found Additional Source Comments INFORMATION SOURCE (unrecogn ized section and content) DATE CREATED AUTHOR AUTHOR'S ORGANIZ ATION 12/25/2019 [facility] DATE CREATED AUTHOR AUTHOR'S ORGANIZ ATION 03/21/2022 [facility] DATE CREATED AUTHOR AUTHOR'S ORGANIZ ATION 03/23/2022 [facility] Ordered Prescriptions (unrec ognized section and content) Scheduled Active and Recently Administ ered Medications (unrecognized section and content) Linked Groups Order Group 1: Saline lock IV Routine, CONTINUOUS, Starting on 03/20/22 at 2245, Until Specified And sodium chloride flush 0.9 % injection 3 mLJump to med 3 mL, IntraVENous, EVERY 8 HOURS, First dose on 03/20/22 at 2238, Until Discontinued
Flush line with 3-5 mL
FOR RECORDS PERTAINING TO PATIENTS WHO ARE OR HAVE BEEN ENROLLED IN A CHEMICAL DEPENDENCY/SUBSTANCEABUSE PROGRAM, SOME INFORMATION MAY BE OMITTED. This clinical summary was aggregated from multiple sources. Caution should be exercised in using it in the provision of clinical care. This summary normalizes information from multiple sources, and as a consequence, information in this document may materially change the coding, format and clinical context of patient data. In addition, data may be omitted in some cases. CLINICAL DECISIONS SHOULD BE BASED ON THE PRIMARY CLINICAL RECORDS. [facility] [employer] [facility]. provides no warranty or guarantee of the accuracy or completeness of information in this document.
[2023-07-24] MEDS: Piperacil/Tazobactam 4.5 GM in 0.9% Normal Saline (100mL MB+) 100 ML IV (11:49)
[2023-07-24] MEDS: 0.9% Normal Saline (1000mL) 1,500 ML 999 ML IV (11:49)
--- NOTE | 2023-07-24 12:20 | PCM.HP.STD ---
HPI - General General Date of Admission: 07/24/23 Date of Service: 07/24/23 Chief Complaint: Shortness of breath HPI Narrative KARYNA SALEH, is a 62 F who presented to the emergency department at [facility] on 07/24/2023 with shortness of breath and lethargy. Patient was brought in by personal car and had to be pulled from the car due to significant dyspnea. On presentation she was lethargic but able to answer a few questions appropriately. She presented with her significant other however he was gone by the time I was evaluating the patient and had arrived on the emergency department physician for any history. Evidently, her had reported she had been getting weaker for some time. She had not been getting out of bed much. She has known history of COPD that is quite severe and wears 2.5 L of oxygen at baseline per previous documentation from pulmonary medicine. Her FEV1 is 25% of predicted. Prior to him leaving, Dr. Welsh did discuss with the that she may need to be intubated and he stated that she was to be full code. Vital signs on presentation showed a temperature of 96.9, heart rate has been anywhere from 98-139, blood pressure is 122/85, respiratory rate was 31 and oxygen saturations were 95% on 4 L nasal cannula presentation. She eventually fatigued and was placed on BiPAP. A VBG was obtained that showed a pH of 7.24. 2 hours after AVAPS on noninvasive ventilation a repeat blood gas, this time ABG, was performed and she was found to have a pH of 7.25. Given the fact she had no significant improvement in her blood gas and was still fairly lethargic we decided to electively intubate her which was done in the emergency department prior to admission. CBC showed a white count of 13.4, hemoglobin of 10.7 which is stable and a left shift with an 89.9% neutrophilia. Her chemistry panel shows a chronically elevated serum bicarb and a BUN of 24 with a serum creatinine of 0.42. Blood glucose was 149. LFTs were unremarkable. Initial troponin was 48. BNP was 144.1. Chest x-ray was unremarkable for any acute findings and was stable when compared to previous chest x-ray. Of note patient came in with her oxygen on and she had nicotine staining of her oxygen tubing from the nasal prongs up into the tubing bilaterally for approximately 1 foot. [facility] Medical History Acute on chronic respiratory failure with hypoxia and hypercapnia Afib Chronic respiratory failure with hypoxia Elevated troponin I level Essential (primary) hypertension History of non-ST elevation myocardial infarction (NSTEMI) (06/21/19) Hyperglycemia Hyperlipidemia Leukocytosis Non-ischemic cardiomyopathy On home oxygen therapy DONNA (obstructive sleep apnea) Protein calorie malnutrition Smoker Stage 4 very severe COPD by GOLD classification Home Medications acetaminophen 500 mg tablet 1,000 mg PO DAILY PRN PRN Pain Or Fever 10/04/18 [History Last Taken 06/13/19] lisinopril 10 mg tablet 10 mg PO DAILY BP 10/04/18 [History Last Taken 06/14/19] albuterol sulfate 2.5 mg/3 mL (0.083 %) solution for nebulization 2.5 mg (3 mL) inhalation Q6H #180 mL 12/30/22 [Rx Last Taken Unknown] Disability Placard #1 ea 03/15/23 [Rx Last Taken Unknown] apixaban 5 mg tablet (Eliquis) 5 mg PO BID #60 tabs 03/15/23 [Rx Last Taken Unknown] tiotropium bromide 1.25 mcg/actuation mist for inhalation (Spiriva Respimat) 2 puff inhalation DAILY #4 grams 03/15/23 [Rx Last Taken Unknown] budesonide-formoterol HFA 160 mcg-4.5 mcg/actuation aerosol inhaler (Symbicort) 2 puff inhalation BID #10.2 grams 05/26/23 [Rx Last Taken Unknown] albuterol sulfate 90 mcg/actuation aerosol inhaler 2 inh PO Q4H PRN shortness of breath or wheezing #8.5 grams 06/24/23 [Rx Last Taken Unknown] pantoprazole 40 mg tablet,delayed release mg PO 07/24/23 [History Last Taken Unknown] Allergy/AdvReac Type Severity Reaction Status Date / Time atorvastatin [From Lipitor] Allergy Unknown Unknown Verified 03/21/23 11:43 codeine Allergy Rash Verified 03/21/23 11:43 ibuprofen Allergy Rash Verified 03/21/23 11:43 Family History Father Lung cancer Mother Breast cancer Parkinsons disease Surgical History H/O tubal ligation Social History household members: significant other housing: house Smoking Status: Current every day smoker tobacco type: cigarettes alcohol intake: never substance use type: does not use ROS ROS Narrative Patient was quite somnolent and required intubation at the time of my arrival Review of Systems ROS Unobtainable: due to mental condition Vital Signs Vital Signs Vital Signs: 07/24/23 10:34 07/24/23 10:36 07/24/23 10:38 Temperature 96.9 F L 96.9 F L Temperature Source Temporal Temporal Pulse Rate 98 139 H Respiratory Rate 31 H 34 H Respiratory Effort Short of Breath Accessory Muscle Use Respiratory Depth Shallow Blood Pressure 122/85 H 122/85 H Blood Pressure Mean 97 97 Pulse Ox 95 93 Oxygen Delivery Method Nasal Cannula Nasal Cannula Oxygen Flow Rate (L/min) 4 Fraction of Inspired Oxygen (FIO2) 07/24/23 10:41 07/24/23 11:53 07/24/23 10:38 Temperature Temperature Source Pulse Rate 127 H 130 H Respiratory Rate 14 Respiratory Effort Respiratory Depth Blood Pressure 116/41 L Blood Pressure Mean 66 Pulse Ox 94 90 Oxygen Delivery Method Bi-pap Bi-pap Oxygen Flow Rate (L/min) 60 Fraction of Inspired Oxygen (FIO2) 50 60 07/24/23 10:57 07/24/23 10:57 Temperature Temperature Source Pulse Rate 134 H Respiratory Rate 14 Respiratory Effort Respiratory Depth Blood Pressure Blood Pressure Mean Pulse Ox Oxygen Delivery Method Oxygen Flow Rate (L/min) Fraction of Inspired Oxygen (FIO2) 50 Weight Weight: 45.3 kg Body Mass Index (BMI) 15.6 Physical Exam Const Negative for alert, oriented x3, no apparent distress, average body habitus, healthy appearing or well nourished Constitutional Narrative: Severely cachectic white female who appears much older than stated age, lying in bed with noninvasive ventilation leaning towards the left, she does awaken slightly with noxious stimuli trying to punch me, appears markedly ill chronically General Appearance: uncooperative Orientation / Consciousness: confused, disoriented and lethargic HEENT normocephalic and head/scalp atraumatic HEENT Narrative: Edentulous, Mallampati is 1, no thrush, significant temporal wasting Eyes PERRL and conjunctivae normal Eyes Narrative: No scleral icterus Neck no lymphadenopathy and supple Neck Narrative: Trachea midline, no thyroid enlargement Resp normal respiratory effort, no retractions, no use of accessory muscles and No clear to auscultation bilaterally Resp Narrative: Severely diminished but diffusely but no adventitious sounds noted, no significant respiratory distress however patient is extremely somnolent Auscultation: Negative for rales, rhonchi or wheezes Cardio S1 normal heart sound, S2 normal heart sound, no murmurs, no rub, no gallops and no clicks; Negative for regular rate or regular rhythm Cardio Narrative: Tachycardia with intermittent PACs GI normal to inspection, nondistended, normoactive bowel sounds, soft to palpation and non-tender GI Narrative: Markedly scaphoid abdomen Extremity Extremity Narrative: No edema, severely diminished lean muscle mass, no cyanosis, feet are dirty with unkept nails, patient does have clubbing Neuro No oriented x3 and moves all extremities Neuro Narrative: Spontaneously moves all 4 extremities to noxious stimuli but no meaningful interaction and patient does not consistently follow commands, reflexes are 2+ bilateral upper and lower extremities Speech: Negative for speech normal Psych Psych Narrative: Unable to assess Results Lab / Micro Data Attestation: I reviewed the patient's lab results. 07/24/23 10:35 07/24/23 10:35 Labs: Laboratory Results - last 24 hr 07/24/23 10:35: WBC 13.4 H, RBC 4.43, Hgb 10.7 L, Hct 39.9, MCV 90.1, MCH 24.2 L, MCHC 26.8 L, RDW Std Deviation 46.6 H, RDW Coeff of Sami 14.2, Plt Count 252, MPV 11.7, Immature Gran % (Auto) 0.300, Neut % (Auto) 89.9 H, Lymph % (Auto) 4.8 L, [place] % (Auto) 4.6, Eos % (Auto) 0.1, Baso % (Auto) 0.3, Absolute Neuts (auto) 12.1 H, Absolute Lymphs (auto) 0.64 L, Nucleated RBC % 0, Sodium 137, Potassium 5.0, Chloride 96 L, Carbon Dioxide 44.0 H, Anion Gap -3 L, BUN 24 H, Creatinine 0.42 L, Estim Creat Clear Calc 96.77, Est GFR (MDRD) Af Amer 194, Est GFR (MDRD) Non-Af 160, BUN/Creatinine Ratio 56.9 H, Glucose 149 H, Lactic Acid 1.2, Calcium 10.1, Total Bilirubin 0.20, AST 10 L, ALT 13, Alkaline Phosphatase 72, Troponin I High Sens 78 H, B-Natriuretic Peptide 144.1 H, Total Protein 7.3, Albumin 3.2, Globulin 4.1, Albumin/Globulin Ratio 0.8 L 07/24/23 10:45: Magnesium 2.3, Blood Type A POSITIVE, Antibody Screen NEGATIVE Micro: Microbiology 07/24/23 10:55 Nasal Secretion SARS-CoV-2 & FLU Antigen (Rapid) - Final 07/24/23 10:55 Mucosa - Nasopharyngeal RSV RNA Qualitative (PCR) - Final 07/24/23 11:00 Stool Stool Occult Blood (CAROLYNE) - Final ABG Data ABG results: ABG 07/24/23 10:46 Specimen Type MILE Sample Site Not entered O2 % 2.0 VBG pH 7.24 L VBG pO2 30 VBG HCO3 47 H VBG O2 Sat (Calc) 41 L VBG Base Excess 20 H POC Mix VBG pCO2 Pt Tmp 111.1 H* O2 Delivery Device Not entered Crit Call To/Read Back Yes Blood Gas Notified Whom ivan welsh Blood Gas Notified Time 10:47:53 Imagaing Radiology Impression Chest X-Ray 07/24/23 11:05 IMPRESSION: Stable chest with no acute or active cardiopulmonary disease. Electronically Signed: Michael Yuen MD at 11:27 EST , Assessment & Plan Assessment/Plan (1) Elevated brain natriuretic peptide (BNP) level: (2) Stage 4 very severe COPD by GOLD classification: (3) Elevated troponin I level: (4) Severe malnutrition: (5) Pulmonary cachexia due to COPD: (6) Respiratory acidosis: PLAN: Plan Acute on chronic hypoxic and hypercapnic respiratory failure secondary to acute exacerbation of COPD -Placed on BiPAP on presentation however pH did not improve after 2 hours on BiPAP and therefore we intubated her for persistent hypercapnia and somnolence -Mechanical ventilation with a tidal volume of 350/PEEP of 8/respiratory rate of 12 -Precedex for sedation -At baseline patient uses 2.5 L with exertion only -Start Solu-Medrol 40 every 8 -Aggressive pulmonary toilet -Start I-S and Pep therapy once off ventilator -Lasix 40 mg IV push x 1 dose -Chest x-ray shows hyperinflation with no significant vascular congestion or infiltrates--> stable when compared to previous -COVID and flu are negative -Check respiratory viral panel -Check sputum culture -Check strep pneumo and Legionella antigens -Will start azithromycin and ceftriaxone empirically and await culture results -Blood cultures have been sent -Pulmonary medicine consultation Acute on chronic respiratory acidosis -Acute on Chronic -2 appears to be between 55 and 65 -Treatment as above Troponin elevation -Likely stress response related to hypoxia -Will check echocardiogram -Cycle cardiac enzymes for trend -No acute ischemia noted on EKG Chronic anemia -Counts are stable in the mid 10 range -Continue to monitor -No signs of acute blood loss -Guaiac is negative -Will monitor PAF -Patient has history of paroxysmal atrial fibrillation that especially worsens when she is in respiratory distress as anticipated -Currently not appearing to be on any rate controlling medication -Will continue apixaban -Precedex should slow heart rate down HFrEF-nonischemic cardiomyopathy -Last echocardiogram from 07/10/2022 shows an EF of 40% with mild global hypokinesis of the LV and mild to moderate mitral valve insufficiency -Right ventricular systolic pressure was not noted -Check echocardiogram -Hold home lisinopril -Patient is not on a beta-julianna at baseline -Would recommend outpatient cardiology follow-up with outpatient noninvasive stress testing after stabilized clinically if echo shows no wall motion abnormality Troponin elevation -Suspect related NSTEMI type II and demand ischemia with hypoxia -Echo shows no new wall motion abnormality or change in ejection fraction -Recommend outpatient follow-up for noninvasive stress testing once clinically improved and stable Severe malnutrition -Likely related to pulmonary cachexia -Dietitian consultation -BMI is 15.6 -Supplements to be added once respiratory status is stable and patient is able to take a p.o. diet COPD Gold stage IV -Baseline FEV1 was 25% predicted -Wears 2.5 L of oxygen at baseline -Continue supplemental oxygen as noted -Hold inhalers -Pulmonary toilet as above -Follows with Dr. Enamorado as an outpatient -Still smoking Hypertension -Hold home lisinopril -As needed hydralazine Tobacco abuse -Patient with ongoing tobacco abuse -Recommend cessation Depression -Patient is no longer taking anything for this DVT prophylaxis -Continue apixaban CODE STATUS -Full code is reviewed with the prior to leaving the emergency department by the emergency department physician -Overall prognosis is extremely poor and with the severity of her lung disease she will likely be very difficult to extubate Critical care time greater than 36 minutes excluding all procedures Charges/Coding Procedures Hospitalists Procedures: 51027 Critical Care 1st Hr
[2023-07-24 12:21] LABS: Allen Test Positive; Base Excess 22 mmol/L (-2 to +2); Bicarbonate 49.7 mmol/L (22-26); Blood Gas Specimen Type ART; Comment 26/14; Mode avaps; O2 Delivery Device BiPAP; PEEP 12; PO2 80 mmHG (75-100); RR 12; SITE R Radial; SO2 92 % (95-99); Time Given 12:20:07; Total Carbon Dioxide > 50 mmol/L; pCO2 114.4 mmHg (35-45); pH 7.25 (7.35-7.45)
[2023-07-24] MEDS: Propofol 200 MG/20 ML Vial 50 MG IV BOLUS (12:42)
[2023-07-24] MEDS: Propofol 200 MG/20 ML Vial 30 MG IV BOLUS (12:50)
--- NOTE | 2023-07-24 13:00 | RAD_ITS ---
STUDY: X-RAY CHEST REASON FOR EXAM: Female, 62 years old. Intubation. TECHNIQUE: Single frontal view of the chest on 2 images. COMPARISON: None. FINDINGS: Endotracheal tube placed with tip approximately 3.2 cm above the narinder. NG tube side hole above the GE junction and tube should be advanced at least 6-8 cm. Stable hyperinflation. There is no demonstrated pleural abnormality. Cardiomegaly unchanged. Normal mediastinum and celsa. Normal visualized pulmonary arteries. Normal visualized aortic arch and descending thoracic aorta. Normal visualized thoracic spine. Normal visualized ribs, clavicles, and shoulders. No abnormality of the visualized soft tissue structures of the upper abdomen. RAD/Chest 1 View (Portable) IMPRESSION: Endotracheal tube tip 3.2 cm above the narinder. NG tube should be advanced at least 6-80 cm. Stable cardiomegaly with hyperinflation. Electronically Signed: Michael Yuen MD at 13:32 EST ,
[2023-07-24] MEDS: fentaNYL 100 MCG/2 ML Ampul 50 MCG IV (13:05)
--- OUTSIDE RECORDS SUMMARY | 2023-07-24 13:11 | XMS RPT_ITS | CCD ---
Author Name Unknown Address [address] [place] [address] Organization [facility] Care Team Providers Care Supervisor [employer] Name Role Phone RENATO CALHOUN (BRIAN-Chela) Referring Unavai lable Unavailable Primary Care Provider Unavailabl e Allergies Allergy Classification Reported Allergen(s) Allergy Type Date of Onset Reaction(s) Facility (1 source) Codeine; Translations: [CODEINE] Drug Allergy 10-04-2018 [facility] Repository (2 sources) Ibuprofen; Translations: [IBUPROFEN] Drug Allergy 10-04-2018 Rash [facility] Repository (1 source) HYDROcodone Drug Allergy 03-20-2022 [...] 170.2 cm Jhonatan Nesheim DO Work Phone: [facility] 03-20-2022 22:43-0400 Body mass index (BMI) [Ratio] 20.36 kg/m2 Jhonatan Nesheim DO Work Phone: [facility] 03-20-2022 22:43-0400 Body temperature 98.29 [degF] Jhonatan Nesheim DO Work Phone: [facility] 03-20-2022 22:43-0400 Body weight 58.97 kg Jhonatan Nesheim DO Work Phone: [facility] 03-20-2022 22:43-0400 Diastolic blood pressure 89 mm[Hg] Jhonatan Nesheim DO Work Phone: [facility] 03-20-2022 22:43-0400 Heart rate 122 /min Jhonatan Nesheim DO Work Phone: [facility] 03-20-2022 22:43-0400 Respiratory rate 22 /min Jhonatan Nesheim DO Work Phone: [facility] 03-20-2022 22:43-0400 SaO2% (BldA) [Mass fraction] 97 % Jhonatan Nesheim DO Work Phone: [facility] 03-20-2022 22:43-0400 Systolic blood pressure 150 mm[Hg] Jhonatan Nesheim D O Work Phone: [facility] Encounters Encounter Date Encounter Type Care [...] 03-24-2022 Influenza vaccination Flu vaccine (# 1) [facility] Start: 1977 DTaP/Tdap/Td vaccine (1 - Tdap) DTaP/Tdap/Td vaccine (1 - Tdap) [facility] Start: 05-31-1961 COVID-19 Vaccine (#1) COVID-19 Vacci ne (#1) [facility] End: 03-20-2022 EKG 12 Lead - Chest Pain EKG 12 Lead - Chest Pain ECG STAT One Time for 1 Occurrences starting 03/20/2022 until 03/20/2022 [facility] Work Phone: Social History Date Type Detail Facility Tobacco smoking stat [facility] Tobacco smoking consumption unknown [facility] Start: 03-21-2022 History SDOH Alcohol Frequency 1 [facility] Work Phone: Start: 03-21-2022 History SDOH Alcohol Std Drinks 0 [facility] Work Phone: Start: 1960 Sex Assigned At Not on file S [facility] Work Phone: Start: 03-10-2022 End: 03-21-2022 Exposure to SARS-CoV-2 (event) Not sure [facility] Work Phone: Hospital Discharge instructions 03-21-2022 Discharge InstructionsAttachments Note Date & Type Note Facility 03-21-2022 Hospital Discharg e instructions Jhonatan Ornelas DO - 03/21/2022 1:32 AM EDT Please follow-up with your fourth officer later today as we discussed. If you have any worsening shortness of breath, develop chest pain or other symptoms, please return the emergency department. I have prescribed an additional course of prednisone for you to take in the outpatient setting. The following attachments cannot be sent through Care Everywhere.COPD Exacerbation Plan ([place])COPD: General Info ([place])documented in this encounter [facility] Work Phone: Evaluation note Note Date & Type Note Facility documented in this encounter [facility] Work Phone: Summary Purpose Family History No Family History Records FoundNo Family History Records FoundNo Family History Records FoundNo Family History Records Found Advance Directives No Advanced Directives Records FoundNo Advanced Directives Records FoundNo Advanced Directives Records FoundNo Advanced Directives Records Found Additional Source Comments INFORMATION SOURCE (unrecogn ized section and content) DATE CREATED AUTHOR AUTHOR'S ORGANIZ ATION 12/25/2019 [facility] DATE CREATED AUTHOR AUTHOR'S ORGANIZ ATION 03/21/2022 [facility] DATE CREATED AUTHOR AUTHOR'S ORGANIZ ATION 03/23/2022 [facility] Ordered Prescriptions (unrec ognized section and [...] BE BASED ON THE PRIMARY CLINICAL RECORDS. [facility] [employer] [facility]. provides no warranty or guarantee of the accuracy or completeness of information in this document.
[2023-07-24] MEDS: dexMEDEtomidine 400 MCG in 0.9% Normal Saline (100mL Bag) 96 ML 5.70000000000000018 MCG CONT INF ×2 (13:19→17:44)
--- NOTE | 2023-07-24 13:25 | PCM.HOSP.N ---
Hospitalist Note Intubation Indication: Chronic hypoxic and hypercapnic respiratory failure without improvement on noninvasive ventilation Consent was obtained from: Emergent The patient was placed in the appropriate sniffing position. Preoxygenated sedation via an IV was provided for a minimum of 3 minutes. The patient had continuous cardiac as well as pulse oximetry monitoring during the procedure. Procedure sedation was provided by the administration of 50 mg of propofol. Direct laryngoscopy was then performed using a number 4 Waylon blade, which revealed a grade 2 view. A 7.5 mm endotracheal tube was visualized advancing between the cords to the level of 22 cm at the lip. The stylette was then removed and discarded. Tube placement was confirmed by fogging in the tube along with equal and bilateral breath sounds. Colorimetric change was visualized on the CO2 meter. The cuff was then inflated and the tube secured using a commercially available device. A good pulse oximetry waveform was seen on the monitor throughout the procedure. A portable chest x-ray has been ordered to confirm appropriate placement. The patient tolerated the procedure well. Procedures Hospitalists Procedures: [id number] Insert Emergency Airway
--- NOTE | 2023-07-24 14:02 | ED.RN ---
PT FULLY AWAKE EVEN WITH PRECEDEX. PT STATES SHE WANTS THE TUBE REMOVED. RN EXPLAINED TO PATIENT WE CANNOT TAKE IT OUT. ONLY A DOCTOR CAN. WAITING TO HEAR BACK FROM DR. DANIELS WITH REGARDS TO SEDATION
[2023-07-24] MEDS: fentaNYL drip 100 ML 2.5 MCG CONT INF (14:26)
--- NOTE | 2023-07-24 14:37 | ED.RN ---
PATIENT AWAKE EVEN WITH SEDATION ASKING FOR SOMETHING TO DRINK. RN AND RTBASHIR EXPLAINED TO PATIENT SHE CANNOT HAVE ANYTHING TO DRINK. SHE CURRENTLY HAS A TUBE TO HELP HER BREATHE. RN STATES SHE COULD ASPIRATE. PT STATES SHE DOES NOT WANT TO
[2023-07-24 14:40] LABS: Allen Test Positive; Base Excess 14 mmol/L (-2 to +2); Bicarbonate 40.9 mmol/L (22-26); Blood Gas Specimen Type ART; Mode AC; O2 Delivery Device Adult Vent; PEEP 8; PO2 111 mmHG (75-100); RR 16; SITE L Radial; SO2 97 % (95-99); Time Given 14:38:01; Total Carbon Dioxide 44 mmol/L; pCO2 87.3 mmHg (35-45); pH 7.28 (7.35-7.45)
[2023-07-24] MEDS: Propofol 10MG/Ml 1,000 MG/100 ML Bottle 2.70000000000000018 MG CONT INF (14:50)
--- NOTE | 2023-07-24 14:51 | ED.RN ---
DR. DANIELS NOTIFIED VIA BACKLINE PATIENT IS STILL NOT SEDATED. DR. DANIELS WANTS PRECEDEX DISCONTINUED AND PROPOFOL STARTED FOR SEDATION.
[2023-07-24] MEDS: Midazolam 2 MG/2 ML Syringe IV (15:12)
[2023-07-24] MEDS: 0.9% Normal Saline (250mL Bag) 500 ML 999 ML IV (15:12)
[2023-07-24 16:38] LABS: Blood Gas Specimen Type VEN; O2 Delivery Device Adult Vent; PEEP 8; RR 16; SITE Not entered; VBG BASE EXCESS 16 mmol/L (-1.0-3.5); VBG Bicarbonate 41 mmol/L (22-26); VBG PO2 29 mmHg (25-40); VBG SO2 53 % (50-70); VBG TCO2 43 mmol/L (23-33); VBG pCO2 63.9 mmHg (41-51); VBG pH 7.41 (7.32-7.42)
[2023-07-24] MEDS: Ceftriaxone 2 GM in 0.9% Normal Saline (50mL MB+) 50 ML IV (16:51)
[2023-07-24 17:05] LABS: CPK Total, Creatine Kinase 38 U/L (26-192); Triglycerides 77 mg/dL; Troponin-I HS 82 pg/mL (3.0-54.0)
[2023-07-24] MEDS: Azithromycin 500 MG in Dextrose 5%-Water (250mL Bag) 250 ML 250 MG IV (17:34)
[2023-07-24 18:11] LABS: M R Staph aureus DNA By PCR Negative (Negative); Probe Check PASS; Specimen Processing Control PASS
[2023-07-24] MEDS: 0.9% Normal Saline (1000mL) 1,000 ML 500 ML IV ×2 (18:15→20:19)
[2023-07-24 19:07] LABS: Troponin-I HS 78 pg/mL (3.0-54.0)
[2023-07-24 19:12] LABS: Procalcitonin 0.07 ng/mL (0.00-0.09)
--- NOTE | 2023-07-24 19:59 | NURSING ---
1618-Dr. Garrison notified of lasix being held due to low bp and maps in high 50's. 173- ordered to start 2 L bolus and to get a procal. 173- notified of poor PIV access. 182- notified of updated BP of 109/48 (64) and a new PIV was placed.
[2023-07-24] MEDS: APIXABAN 5 MG TABLET GT (20:18)
[2023-07-24] MEDS: Acetaminophen 650 MG/20 ML UDC GT (20:20)
[2023-07-24] MEDS: Pantoprazole Sodium 40 MG in 0.9% Normal Saline (100mL MB+) 100 ML 330 MG IV (20:21)
[2023-07-24] MEDS: Chlorhexidine 15 ML PO (20:36)
[2023-07-24] MEDS: Albumin Human 25% (100 mL) 25 GM/100 ML BAG IV (23:09)
[2023-07-24 23:42] LABS: Troponin-I HS 77 pg/mL (3.0-54.0)
[2023-07-25] VITALS (47 sets, daily range): BP systolic 88–140; BP diastolic 43–106; PULSE 64–121; RESP 16–26; TEMP 36.7–38.2; O2SAT 90–98; BMI 17.0
[2023-07-25] MEDS: fentaNYL drip 100 ML 12.5 MCG CONT INF (01:05)
[2023-07-25] MEDS: 0.9% Saline Lock 10 ML Syringe IV ×3 (01:36→05:51)
[2023-07-25] MEDS: Propofol 10MG/Ml 1,000 MG/100 ML Bottle 9.5 MG CONT INF (01:42)
[2023-07-25] MEDS: dexMEDEtomidine 400 MCG in 0.9% Normal Saline (100mL Bag) 96 ML 10.1999999999999993 MCG CONT INF (02:06)
[2023-07-25] MEDS: CHLORHEXIDINE GLUC 2% CLOTH 1 EACH TOWELETTE TOPICAL (02:06)
[2023-07-25] MEDS: Norepinephrine 8 MG in 0.9% Normal Saline (250mL Bag) 242 ML 9.40000000000000036 MG CONT INF (02:24)
--- NOTE | 2023-07-25 03:19 | NURSING ---
Precedex gtt turned up and propofol gtt turned down simultaneously in an attempt to begin spontaneous awakening trial this morning.
[2023-07-25] MEDS: Ipratropium/Albuterol Sulfate 3 ML AMPUL.NEB INHALATION ×6 (03:40→23:00)
[2023-07-25 03:58] LABS: Absolute Lymphocyte Count 0.45 X10^3/uL (0.83-4.51); Absolute Neutrophil Count 6.1 X10^3/uL (2.0-7.7); Basophil# 0.01 X10^3/uL; Basophil% 0.1 % (0-1); Hematocrit 26.8 % (37-47); Hemoglobin 7.4 g/dL (12.0-15.0); Lymphocyte # 0.45 X10^3/ul (0.83-4.51); Lymphocyte % 6.3 % (19-41); Mean Corp Hgb Conc 27.6 g/dL (32-36); Mean Corpuscular Hgb 24.3 pg (27.0-32.0); Mean Corpuscular Volume 87.9 fL (81-99); Mean Platelet Vol. 11.8 fl (6.2-12.0); Monocyte# 0.64 X10^3/uL; Monocyte% 8.9 % (0-10); NRBC Flagged by Analyzer 0 % (0-5); Neutrophil # 6.06 X10^3/uL (2.7-7.7); Neutrophil % 84.1 % (47-70); POSITIVE DIFFERENTIAL YES; Platelet Count 189 K/mm3 (150-450); RBC Distribution Width CV 15.2 % (11.6-14.6); RBC Distribution Width SD 49.2 fl (35.1-43.9); Red Blood Count 3.05 M/mm3 (4.2-5.4); White Blood Count 7.2 K/mm3 (4.4-11.0)
[2023-07-25 04:20] LABS: Differential Indicated SCAN CRITERIA MET
[2023-07-25 04:42] LABS: ALB/GLOB Ratio 1.1 RATIO (0.9-2.4); AST(SGOT) 22 U/L (15-37); Alanine Aminotransfer ALT/SGPT 15 U/L (13-56); Albumin, Serum 3.1 g/dL (3.2-5.0); Alkaline Phosphatase 48 U/L (45-117); Anion Gap 6 (5-15); BUN 25 mg/dL (7-18); BUN/Creat Ratio 61.6 RATIO (10-20); Calcium,Total 8.3 mg/dL (8.5-10.1); Chloride 105 mmol/L (98-107); Creatinine, Serum 0.41 mg/dL (0.55-1.02); EST Glomerular Filtration Rate 168 mL/min (>60); Est Glom Filt Rate - Afr Amer 203 mL/min (>60); Estimated Creatinine Clearance 107.89 ml/min; Globulin 2.9 g/dL (2.2-4.2); Glucose 149 mg/dL (74-106); Magnesium 1.9 mg/dL (1.6-2.6); Phosphorus 2.3 mg/dL (2.5-4.9); Potassium 4.2 mmol/L (3.5-5.1); Sodium Level 142 mmol/L (136-145); Thyroid Stim Hormone (TSH) 0.23 uIU/mL (0.358-3.74)
[2023-07-25 04:56] LABS: Differential Comment SCANNED
[2023-07-25] MEDS: TITRATION PARAMETER CHANGE 1 EACH IV (05:51)
--- NOTE | 2023-07-25 05:55 | ECHOD_ITS ---
Reason For Study: DYSPNEA/SOB Procedure This was a 2D Doppler, Color Flow transthoracic echocardiogram. The study was technically difficult. The study was technically limited. D/T arrhythmia and poor apical accoustic windows. Exam performed portable in ICU/CCU. Left Ventricle Normal size and thickness. Estimated left ventricular ejection fraction 40 to 45%. Right Ventricle Normal RV size. Normal systolic function. Atria The left and right atria are normal. Mitral Valve Mild diffuse mitral valve thickening. Trivial mitral valve insufficiency. Tricuspid Valve Trivial tricuspid valve insufficiency. Unable to estimate RV systolic pressure due to insufficient tricuspid regurgitant envelope. Aortic Valve The aortic valve is not well visualized in the short axis view. Pulmonic Valve The pulmonic valve is not well visualized. Great Vessels The aortic root is not well visualized. Pericardium/Pleural No pericardial effusion. MMode/2D Measurements & Calculations LVIDd: 5.2 cm IVSd: 0.86 cm Ao root diam: 2.9 cm LVIDs: 3.8 cm LVPWd: 0.84 cm RVDd: 3.9 cm FS: 26.0 % LAV(MOD-sp4): 53.3 ml LVAd ap4: 24.4 cm2 SV(MOD-sp4): 29.7 ml LVLd ap4: 8.7 cm EDV(MOD-sp4): 60.9 ml EDV(sp4-el): 58.0 ml LVAs ap4: 16.6 cm2 LVLs ap4: 7.8 cm ESV(MOD-sp4): 31.2 ml ESV(sp4-el): 30.3 ml EF(MOD-sp4): 48.8 % EF(sp4-el): 47.7 % SV(sp4-el): 27.7 ml LA A4 area: 18.7 cm2 LA dimension(2D): 3.5 cm RA A4 area: 10.8 cm2 TAPSE: 2.2 cm Time Measurements MV dec time: 0.12 sec Doppler Measurements & Calculations MV E max harris: 72.1 cm/sec Lat Peak E' Harris: 10.8 cm/sec Med Peak E' Harris: 11.3 cm/sec MV A max harris: 97.9 cm/sec E/E' lat: 6.7 E/E' med: 6.4 MV E/A: 0.74 Ao V2 max: 177.9 cm/sec LV V1 max: 112.5 cm/sec PA V2 max: 133.3 cm/sec Ao max P.7 mmHg LV V1 max P.1 mmHg PA V2 mean: 85.8 cm/sec Ao V2 mean: 122.7 cm/sec LV V1 mean P.8 mmHg PA V2 VTI: 23.8 cm Ao mean P.7 mmHg LV V1 mean: 78.5 cm/sec Ao V2 VTI: 31.7 cm LV V1 VTI: 19.0 cm AV (velocity ratio): 0.60 ECHO/Echo Complete Interpretation Summary The study was technically difficult. Mild diffuse mitral valve thickening. Estimated left ventricular ejection fraction 40 to 45% Ordering Physician: Paulette Garrison Referring Physician: [facility] Performed By: Miranda Esquivel RDCS, RVT
[2023-07-25 07:00] LABS: Base Excess 7 mmol/L (-2 to +2); Blood Gas Specimen Type ART; Mode CPAP/PS; O2 Delivery Device Adult Vent; PO2 61 mmHG (75-100); SITE L Brach; SO2 92 % (95-99); Total Carbon Dioxide 32 mmol/L; pCO2 44.1 mmHg (35-45); pH 7.46 (7.35-7.45)
[2023-07-25 07:39] LABS: Platelet Count 186 K/mm3 (150-450); Reticulocyte Count 0.95 % (0.5-1.5)
[2023-07-25 07:48] LABS: Ferritin 8 ng/mL (8-252); Iron 13 ug/dL (50-170); Iron Binding Capacity,Total 351 ug/dL (250-450); PERCENT IRON SATURATION 3.7 % (15.0-55.0)
--- NOTE | 2023-07-25 07:54 | PN.HOSP_ITS ---
Reason for Visit Reason for Visit: Shortness of breath/lethargy Subjective Subjective Patient with intermittent agitation overnight despite sedation. FiO2 has been weaned to 35% and patient remains tachypneic. Currently doing okay on breathing trial. Hemoglobin is down however no signs of bleeding. Did require the initiation of some low-dose Levophed overnight but currently off since 545 this morning. Objective Data Objective Data Vital Signs: Vital Signs Temp Pulse Resp BP Pulse Ox O2 Del Method O2 Flow Rate 100.3 F H 89 23 H 127/56 H 92 Mechanical Ventilator 35 07/25/23 07:00 07/25/23 07:32 07/25/23 07:32 07/25/23 07:00 07/25/23 07:00 07/25/23 07:00 07/25/23 04:10 FiO2 35 07/25/23 07:00 Oxygen Flow Rate (L/min) 35 Oxygen Delivery Method Mechanical Ventilator Weight: 49.3 kg Body Mass Index (BMI) 17.0 Intake & Output: Intake and Output for Last 24 Hours 07/23/23 07/24/23 07/25/23 23:59 23:59 23:59 Intake Total 4793.19 / 4825.39 399.63 / 399.63 Output Total 175 / 500 600 / 600 Balance 4618.19 / 4325.39 -200.37 / -200.37 Lab / Micro Data 07/25/23 03:45 07/25/23 03:45 Labs: Laboratory Results - last 24 hr 07/24/23 10:35: WBC 13.4 H, RBC 4.43, Hgb 10.7 L, Hct 39.9, MCV 90.1, MCH 24.2 L , MCHC 26.8 L, RDW Std Deviation 46.6 H, RDW Coeff of Sami 14.2, Plt Count 252, MPV 11.7, Immature Gran % (Auto) 0.300, Neut % (Auto) 89.9 H, Lymph % (Auto) 4.8 L, [place] % (Auto) 4.6, Eos % (Auto) 0.1, Baso % (Auto) 0.3, Absolute Neuts (auto) 12.1 H, Absolute Lymphs (auto) 0.64 L, Nucleated RBC % 0, Sodium 137, Potassium 5.0, Chloride 96 L, Carbon Dioxide 44.0 H, Anion Gap -3 L, BUN 24 H, Creatinine 0.42 L, Estim Creat Clear Calc 96.77, Est GFR (MDRD) Af Amer 194, Est GFR (MDRD) Non-Af 160, BUN/Creatinine Ratio 56.9 H, Glucose 149 H, Lactic Acid 1.2, Calcium 10.1, Total Bilirubin 0.20, AST 10 L, ALT 13, Alkaline Phosphatase 72, Troponin I High Sens 78 H, B-Natriuretic Peptide 144.1 H, Total Protein 7.3, Albumin 3.2, Globulin 4.1, Albumin/Globulin Ratio 0.8 L 07/24/23 10:45: Magnesium 2.3, Blood Type A POSITIVE, Antibody Screen NEGATIVE 07/24/23 16:31: Total Creatine Kinase 38, Troponin I High Sens 82 H, Triglycerides 77 07/24/23 16:45: MRSA (PCR) Negative 07/24/23 18:17: Troponin I High Sens 78 H, Procalcitonin 0.07 07/24/23 23:18: Troponin I High Sens 77 H 07/25/23 03:45: WBC 7.2, RBC 3.05 L, Hgb 7.4 L, Hct 26.8 L, MCV 87.9, MCH 24.3 L , MCHC 27.6 L, RDW Std Deviation 49.2 H, RDW Coeff of Sami 15.2 H, Plt Count 189, MPV 11.8, Immature Gran % (Auto) 0.600, Neut % (Auto) 84.1 H, Lymph % (Auto) 6.3 L, [place] % (Auto) 8.9, Eos % (Auto) 0.0, Baso % (Auto) 0.1, Absolute Neuts (auto) 6.1, Absolute Lymphs (auto) 0.45 L, Nucleated RBC % 0, Differential Comment SCANNED, Retic Count 0.95, Immature Retic Fraction 14.50, Retic Hgb Equivalent 24.0 L, Sodium 142, Potassium 4.2, Chloride 105, Carbon Dioxide 31.0, Anion Gap 6, BUN 25 H, Creatinine 0.41 L, Estim Creat Clear Calc 107.89, Est GFR (MDRD) Af Amer 203, Est GFR (MDRD) Non-Af 168, BUN/Creatinine Ratio 61.6 H, Glucose 149 H, Calcium 8.3 L, Phosphorus 2.3 L, Magnesium 1.9, Iron 13 L, TIBC 351, Iron Saturation 3.7 L, Ferritin 8, Total Bilirubin 0.20, AST 22, ALT 15, Alkaline Phosphatase 48, Total Protein 6.0 L, Albumin 3.1 L, Globulin 2.9, Albumin/Globulin Ratio 1.1, TSH 0.23 L Micro: Microbiology 07/24/23 15:55 Mucosa - Nasopharyngeal Respiratory Panel (PCR) - Final 07/24/23 10:55 Nasal Secretion SARS-CoV-2 & FLU Antigen (Rapid) - Final 07/24/23 10:55 Mucosa - Nasopharyngeal RSV RNA Qualitative (PCR) - Final 07/24/23 11:00 Stool Stool Occult Blood (CAROLYNE) - Final ABG Data ABG results: ABG 07/24/23 07/24/23 07/24/23 10:46 12:18 14:35 Specimen Type MILE ART ART Sample Site Not entered R Radial L Radial pH 7.25 L 7.28 L Bicarbonate Actual 49.7 H 40.9 H Total CO2 > 50 44 Base Excess 22 H 14 H O2 Saturation 92 L 97 O2 % 2.0 60.0 55.0 ABG pCO2 114.4 H* 87.3 H* ABG pO2 80 111 H Arnoldo Test Positive Positive VBG pH 7.24 L VBG pO2 30 VBG HCO3 47 H VBG Total CO2 VBG O2 Sat (Calc) 41 L VBG Base Excess 20 H POC Mix VBG pCO2 Pt Tmp 111.1 H* Respiration Rate 12 16 O2 Delivery Device Not entered BiPAP Adult Vent Vent Mode avaps AC Tidal Volume 400.0 350.0 POC PEEP 12 8 Crit Call To/Read Back Yes Yes Yes Blood Gas Notified Whom ivan carlson Blood Gas Notified Time 10:47:53 12:20:07 14:38:01 Clinical Comments 26/14 07/24/23 07/25/23 16:34 06:57 Specimen Type MILE ART Sample Site Not entered L Brach pH 7.46 H Bicarbonate Actual 31.0 H Total CO2 32 Base Excess 7 H O2 Saturation 92 L O2 % 45.0 35.0 ABG pCO2 44.1 ABG pO2 61 L Arnoldo Test VBG pH 7.41 VBG pO2 29 VBG HCO3 41 H VBG Total CO2 43 H VBG O2 Sat (Calc) 53 VBG Base Excess 16 H POC Mix VBG pCO2 Pt Tmp 63.9 H Respiration Rate 16 O2 Delivery Device Adult Vent Adult Vent Vent Mode CPAP/PS Tidal Volume 400.0 POC PEEP 8 Crit Call To/Read Back Blood Gas Notified Whom Blood Gas Notified Time Clinical Comments Radiography Diagnostic Testing: Radiology Impression Chest X-Ray 07/24/23 11:05 IMPRESSION: Stable chest with no acute or active cardiopulmonary disease. Electronically Signed: Michael Yuen MD at 11:27 EST , Chest X-Ray 07/24/23 13:00 IMPRESSION: Endotracheal tube tip 3.2 cm above the narinder. NG tube should be advanced at least 6-80 cm. Stable cardiomegaly with hyperinflation. Electronically Signed: Michael Yuen MD at 13:32 EST , Physical Exam Const Negative for alert, oriented x3, no apparent distress, average body habitus, healthy appearing or well nourished Constitutional Narrative: Severely cachectic white female who appears much older than stated age, lying in bed with legs over the edge on mechanical ventilation, opens eyes to stimuli however is not consistent with following commands HEENT normocephalic and head/scalp atraumatic HEENT Narrative: ET tube is in place, dentition is poor, mucous membranes are moist Resp no retractions, no use of accessory muscles and No clear to auscultation bilaterally Resp Narrative: Currently intubated, improved air movement however remains diminished diffusely Auscultation: Negative for rales, rhonchi or wheezes Cardio regular rate, regular rhythm, S1 normal heart sound, S2 normal heart sound, no murmurs, no rub, no gallops and no clicks Cardio Narrative: Intermittent ectopy GI normal to inspection, nondistended, normoactive bowel sounds, soft to palpation and non-tender GI Narrative: Markedly scaphoid abdomen Extremity Extremity Narrative: No edema, severely diminished lean muscle mass, no cyanosis, feet are dirty with unkept nails, patient does have clubbing Neuro No oriented x3 and moves all extremities Neuro Narrative: Spontaneously moves all 4 extremities Speech: Negative for speech normal Psych Psych Narrative: Unable to assess Assessment & Plan Assessment/Plan (1) Elevated brain natriuretic peptide (BNP) level: (2) Stage 4 very severe COPD by GOLD classification: (3) Elevated troponin I level: (4) Severe malnutrition: (5) Pulmonary cachexia due to COPD: (6) Respiratory acidosis: (7) Acute anemia: (8) Hypotension: PLAN: Plan Acute on chronic hypoxic and hypercapnic respiratory failure secondary to acute exacerbation of COPD -Placed on BiPAP on presentation however pH did not improve after 2 hours on BiPAP and therefore we intubated her for persistent hypercapnia and somnolence -Patient remains on mechanical ventilation however FiO2 has been weaned to 35% -Doing fair on her spontaneous breathing trial today -At baseline patient uses 2.5 L with exertion only -Continue Solu-Medrol 40 every 8 -Aggressive pulmonary toilet -Start I-S and Pep therapy once off ventilator -COVID and flu are negative -Aspiratory viral panel is unremarkable -Sputum/blood/urine cultures are pending -Strep pneumo and Legionella antigens are pending -RSV PCR is negative -Continue azithromycin and ceftriaxone -Pulmonary medicine following-discussed with Dr. Enamorado Acute on chronic respiratory acidosis -Acute on Chronic -2 appears to be between 55 and 65 -Treatment as above Hypotension -Likely related to positive pressure ventilation, medications for sedation and hypovolemia -Patient was treated with fluid resuscitation which improved hemodynamics however she did require a bit of Levophed overnight however was brief and now is off -Cultures are pending however doubt that this is related to sepsis -New antibiotics as noted above Troponin elevation -Likely stress response related to hypoxia -Echocardiogram is pending -Initial troponin was 78 and then trended up to 82-hour trending back down with most recent being 77 -Cucumber demand and if no wall motion abnormality on echocardiogram we will continue with medical therapy and outpatient follow-up -No acute ischemia noted on EKG Acute on chronic anemia -Counts had been running in the mid 10 range but down to 7.5 today -Guaiac on admission was negative but will repeat -Hemoglobin drop may be dilutional with fluids given for sepsis -Hold Eliquis -Iron studies are somewhat suggestive of iron deficiency -Will dose IV iron 200 x 3 doses--> daily x 3 days -No obvious signs of acute blood loss -Will monitor -Depending on trends and repeat guaiac patient may need evaluation by gastroenterology for scopes while hospitalized PAF -Patient has history of paroxysmal atrial fibrillation that especially worsens when she is in respiratory distress as anticipated -Currently not appearing to be on any rate controlling medication -Hold apixaban due to drop in hemoglobin -Precedex should slow heart rate down HFrEF-nonischemic cardiomyopathy -Last echocardiogram from 07/10/2022 shows an EF of 40% with mild global hypokinesis of the LV and mild to moderate mitral valve insufficiency -Right ventricular systolic pressure was not noted -Echocardiogram is pending -Hold home lisinopril -Patient is not on a beta-julianna at baseline -Would recommend outpatient cardiology follow-up with outpatient noninvasive stress testing after stabilized clinically if echo shows no wall motion abnormality Severe malnutrition -Likely related to pulmonary cachexia -Start tube feed today -Dietitian consultation -BMI is 15.6 -Supplements to be added once respiratory status is stable and patient is able to take a p.o. diet COPD Gold stage IV -Baseline FEV1 was 25% predicted -Wears 2.5 L of oxygen at baseline -Continue supplemental oxygen as noted -Hold inhalers -Pulmonary toilet as above -Follows with Dr. Enamorado as an outpatient -Still smoking Hypertension -Hold home lisinopril -As needed hydralazine Tobacco abuse -Patient with ongoing tobacco abuse -Recommend cessation Depression -Patient is no longer taking anything for this DVT prophylaxis -Hold apixaban with drop in hemoglobin -Start SCDs CODE STATUS -Full code is reviewed with the prior to leaving the emergency department by the emergency department physician -Overall prognosis is extremely poor and with the severity of her lung disease she will likely be very difficult to extubate Charges/Coding Visit Charges Inpatient E&M: 81459 Subs Hosp L2
--- NOTE | 2023-07-25 08:19 | EX.PCM.CONCC ---
Assessment & Plan Assessment/Plan (1) COPD with acute exacerbation: (2) Pulmonary cachexia due to COPD: (3) Acute on chronic respiratory failure with hypoxia and hypercapnia: (4) Stage 4 very severe COPD by GOLD classification: (5) Non-ischemic cardiomyopathy: PLAN: Plan RECOMMENDATIONS: 1. Continue mechanical ventilation. Spontaneous breathing and awakening trials per protocol 2. Continue empiric antibiotics pending cultures 3. Okay to initiate tube feeds 4. Continue bronchodilators, steroids. Add mucolytic 5. Attempt to clarify history IMPRESSIONS: 1. Acute on chronic combined respiratory failure secondary to COPD exacerbation Patient with advanced lung disease at baseline with continued smoking and likely progression of disease. Viral panel was negative at this time. Infiltrates will be difficult to evaluate as patient has very little lung parenchyma. Patient did have a slightly elevated BNP, but it is unclear if this is related to strain related to hypoxia. Patient did have a fever overnight. Patient currently is on empiric antibiotics. Spontaneous breathing and awakening trials per protocol. Patient is on steroids and bronchodilators. Will add mucolytic. 2. Elevated troponin/chronic systolic CHF Patient did have a slightly elevated troponin on presentation. It is unclear if this is secondary to global hypoxemia. Last EF was in June of last year showing 40% with mild global hypokinesis of the left ventricle. Repeat echocardiogram has been ordered. Patient did not present with severe hypertension to suggest flash pulmonary edema. 3. Severe protein malnutrition Patient has significantly reduced BMI. Patient likely has an element of pulmonary cachexia. Patient is also showing signs of iron deficiency. Dietitian has been consulted. Okay to initiate tube feeds from my perspective. 4. Tobacco abuse/hypertension/debility/anemia Complicates care, management, recovery and prognosis. Will need PT and OT to evaluate patient. Patient did have a significant drop in hemoglobin, but this may be slightly delusional as all cell counts are down. Patient does appear to have an element of iron deficiency. TIME: 40 minutes critical care time spent addressing patient's respiratory failure, elevated troponin, malnutrition, review of all data and collaboration with care team HPI Consult Data Date of Consult: 07/25/23 HPI Narrative Reason for Consultation: Acute on chronic respiratory failure HPI Narrative: KARYNA SALEH is a 62 F, with past medical history listed below and well-known to me from the outpatient office, who presents to [facility] on 07/24/2023 secondary to progressive dyspnea. Patient was relatively unresponsive and had to be pulled from her car in the emergency department. Patient reportedly has been having a protracted course, but actual onset is up for deliberation. There was some discussion of possible black bowel movements while on Eliquis. Patient is on home oxygen at baseline and last FEV1 was less than 30% in 2020. Patient does continue to smoke at baseline. In the ER, patient was afebrile, but tachypneic as high as 34 breaths/min. Patient was normotensive and was placed on BiPAP secondary to respiratory muscle fatigue. Patient was significantly tachycardic at 139 bpm. Laboratory data showed a white blood cell count of 13.4, hemoglobin of 10.7 and platelets of 252. Chemistry was significant for a bicarbonate of 44 with a creatinine of 0.42 and glucose of 149. Lactate was 1.2 at that time. BNP was slightly elevated at 144, but liver enzymes were within normal limits. Patient had multiple ABG showing failure to improve, so was ultimately intubated and transferred to the intensive care unit for further evaluation. Fecal occult blood was reportedly negative Since being in the intensive care unit, patient has had a fever to 38.3 ?C. Patient is currently on Precedex and fentanyl. Patient has been noted to have a tremor intermittently. Patient did have a spontaneous breathing trial this morning, but was not extubated secondary to tachypnea with breathing 25 to 30 breaths/min. An ABG did appear to be much improved this morning. Patient does have advanced COPD and has been smoking at home. Nursing is reporting that her significant other is stating that she is becoming too much to handle. Further information is not available at this time as patient is currently intubated and sedated and significant other is not at the bedside. [facility] Medical History Acute on chronic respiratory failure with hypoxia and hypercapnia Afib Chronic respiratory failure with hypoxia Elevated troponin I level Essential (primary) hypertension History of non-ST elevation myocardial infarction (NSTEMI) (06/21/19) Hyperglycemia Hyperlipidemia Leukocytosis Non-ischemic cardiomyopathy On home oxygen therapy DONNA (obstructive sleep apnea) Protein calorie malnutrition Smoker Stage 4 very severe COPD by GOLD classification Home Medications acetaminophen 500 mg tablet 1,000 mg PO DAILY PRN PRN Pain Or Fever 10/04/18 [History Last Taken 06/13/19] lisinopril 10 mg tablet 10 mg PO DAILY BP 10/04/18 [History Last Taken 06/14/19] albuterol sulfate 2.5 mg/3 mL (0.083 %) solution for nebulization 2.5 mg (3 mL) inhalation Q6H #180 mL 12/30/22 [Rx Last Taken Unknown] Disability Placard #1 ea 03/15/23 [Rx Last Taken Unknown] apixaban 5 mg tablet (Eliquis) 5 mg PO BID #60 tabs 03/15/23 [Rx Last Taken Unknown] tiotropium bromide 1.25 mcg/actuation mist for inhalation (Spiriva Respimat) 2 puff inhalation DAILY #4 grams 03/15/23 [Rx Last Taken Unknown] budesonide-formoterol HFA 160 mcg-4.5 mcg/actuation aerosol inhaler (Symbicort) 2 puff inhalation BID #10.2 grams 05/26/23 [Rx Last Taken Unknown] albuterol sulfate 90 mcg/actuation aerosol inhaler 2 inh PO Q4H PRN shortness of breath or wheezing #8.5 grams 06/24/23 [Rx Last Taken Unknown] pantoprazole 40 mg tablet,delayed release mg PO 07/24/23 [History Last Taken Unknown] Allergy/AdvReac Type Severity Reaction Status Date / Time atorvastatin [From Lipitor] Allergy Unknown Unknown Verified 03/21/23 11:43 codeine Allergy Rash Verified 03/21/23 11:43 ibuprofen Allergy Rash Verified 03/21/23 11:43 Family History Father Lung cancer Mother Breast cancer Parkinsons disease Surgical History H/O tubal ligation Social History household members: significant other housing: house Smoking Status: Current every day smoker tobacco type: cigarettes alcohol intake: never substance use type: does not use ROS Review of Systems ROS Unobtainable: due to endotracheal tube Physical Exam Const Constitutional Narrative: Intubated and sedated. RASS -2. Good vent synchrony. General Appearance: patient mechanically ventilated HEENT normocephalic and head/scalp atraumatic HEENT Narrative: Some temporal wasting noted Mouth: endotracheal tube in place and OG tube in place Eyes PERRL, conjunctivae normal and no scleral icterus Neck full ROM Chest Chest: abnormal inspection of the chest increased A-P diameter Resp Effort and Inspection: tachypneic Auscultation: diminished lung sounds diffuse (Severely); Negative for rales, rhonchi or wheezes Cardio regular rate, regular rhythm, S1 normal heart sound, S2 normal heart sound, no murmurs, no rub and no gallops GI normal to inspection, nondistended, normoactive bowel sounds Extremity General Extremity: clubbing; Negative for edema Skin no rashes or lesions noted Neuro Sensorium / Orientation: sedated on vent Psych Mood & Affect: flat affect Medical Records Data Attestation: I reviewed the patient's medical records Medical records narrative: Patient's last PFT was obtained in 2020 showing an FEV1 of 22% with significant bronchodilator response in FVC and air trapping. Patient also had an echocardiogram completed in June 2022 showing an EF of 40% with global hypokinesis and 1-2+ eccentric mitral valve insufficiency. There was no mention of pulmonary hypertension on that examination. Patient is on Eliquis at baseline. Lab / Micro Data Attestation: I reviewed the patient's lab results. Lab results narrative: Patient does not have a history of MDRO. Patient does have a history of CO2 retention with elevated bicarbonate and normal renal function. 07/25/23 03:45 07/25/23 03:45 Labs: Laboratory Results - last 24 hr 07/24/23 10:35: WBC 13.4 H, RBC 4.43, Hgb 10.7 L, Hct 39.9, MCV 90.1, MCH 24.2 L, MCHC 26.8 L, RDW Std Deviation 46.6 H, RDW Coeff of Sami 14.2, Plt Count 252, MPV 11.7, Immature Gran % (Auto) 0.300, Neut % (Auto) 89.9 H, Lymph % (Auto) 4.8 L, [place] % (Auto) 4.6, Eos % (Auto) 0.1, Baso % (Auto) 0.3, Absolute Neuts (auto) 12.1 H, Absolute Lymphs (auto) 0.64 L, Nucleated RBC % 0, Sodium 137, Potassium 5.0, Chloride 96 L, Carbon Dioxide 44.0 H, Anion Gap -3 L, BUN 24 H, Creatinine 0.42 L, Estim Creat Clear Calc 96.77, Est GFR (MDRD) Af Amer 194, Est GFR (MDRD) Non-Af 160, BUN/Creatinine Ratio 56.9 H, Glucose 149 H, Lactic Acid 1.2, Calcium 10.1, Total Bilirubin 0.20, AST 10 L, ALT 13, Alkaline Phosphatase 72, Troponin I High Sens 78 H, B-Natriuretic Peptide 144.1 H, Total Protein 7.3, Albumin 3.2, Globulin 4.1, Albumin/Globulin Ratio 0.8 L 07/24/23 10:45: Magnesium 2.3, Blood Type A POSITIVE, Antibody Screen NEGATIVE 07/24/23 16:31: Total Creatine Kinase 38, Troponin I High Sens 82 H, Triglycerides 77 07/24/23 16:45: MRSA (PCR) Negative 07/24/23 18:17: Troponin I High Sens 78 H, Procalcitonin 0.07 07/24/23 23:18: Troponin I High Sens 77 H 07/25/23 03:45: WBC 7.2, RBC 3.05 L, Hgb 7.4 L, Hct 26.8 L, MCV 87.9, MCH 24.3 L, MCHC 27.6 L, RDW Std Deviation 49.2 H, RDW Coeff of Sami 15.2 H, Plt Count 189, MPV 11.8, Immature Gran % (Auto) 0.600, Neut % (Auto) 84.1 H, Lymph % (Auto) 6.3 L, [place] % (Auto) 8.9, Eos % (Auto) 0.0, Baso % (Auto) 0.1, Absolute Neuts (auto) 6.1, Absolute Lymphs (auto) 0.45 L, Nucleated RBC % 0, Differential Comment SCANNED, Retic Count 0.95, Immature Retic Fraction 14.50, Retic Hgb Equivalent 24.0 L, Sodium 142, Potassium 4.2, Chloride 105, Carbon Dioxide 31.0, Anion Gap 6, BUN 25 H, Creatinine 0.41 L, Estim Creat Clear Calc 107.89, Est GFR (MDRD) Af Amer 203, Est GFR (MDRD) Non-Af 168, BUN/Creatinine Ratio 61.6 H, Glucose 149 H, Calcium 8.3 L, Phosphorus 2.3 L, Magnesium 1.9, Iron 13 L, TIBC 351, Iron Saturation 3.7 L, Ferritin 8, Total Bilirubin 0.20, AST 22, ALT 15, Alkaline Phosphatase 48, Total Protein 6.0 L, Albumin 3.1 L, Globulin 2.9, Albumin/Globulin Ratio 1.1, TSH 0.23 L Micro: Microbiology 07/24/23 15:55 Mucosa - Nasopharyngeal Respiratory Panel (PCR) - Final 07/24/23 10:55 Nasal Secretion SARS-CoV-2 & FLU Antigen (Rapid) - Final 07/24/23 10:55 Mucosa - Nasopharyngeal RSV RNA Qualitative (PCR) - Final 07/24/23 11:00 Stool Stool Occult Blood (CAROLYNE) - Final ABG Data ABG results: ABG 07/24/23 07/24/23 07/24/23 10:46 12:18 14:35 Specimen Type MILE ART ART Sample Site Not entered R Radial L Radial pH 7.25 L 7.28 L Bicarbonate Actual 49.7 H 40.9 H Total CO2 > 50 44 Base Excess 22 H 14 H O2 Saturation 92 L 97 O2 % 2.0 60.0 55.0 ABG pCO2 114.4 H* 87.3 H* ABG pO2 80 111 H Arnoldo Test Positive Positive VBG pH 7.24 L VBG pO2 30 VBG HCO3 47 H VBG Total CO2 VBG O2 Sat (Calc) 41 L VBG Base Excess 20 H POC Mix VBG pCO2 Pt Tmp 111.1 H* Respiration Rate 12 16 O2 Delivery Device Not entered BiPAP Adult Vent Vent Mode avaps AC Tidal Volume 400.0 350.0 POC PEEP 12 8 Crit Call To/Read Back Yes Yes Yes Blood Gas Notified Whom ivan carlson Blood Gas Notified Time 10:47:53 12:20:07 14:38:01 Clinical Comments /07/24/23 07/25/23 16:34 06:57 Specimen Type MILE ART Sample Site Not entered L Brach pH 7.46 H Bicarbonate Actual 31.0 H Total CO2 32 Base Excess 7 H O2 Saturation 92 L O2 % 45.0 35.0 ABG pCO2 44.1 ABG pO2 61 L Arnoldo Test VBG pH 7.41 VBG pO2 29 VBG HCO3 41 H VBG Total CO2 43 H VBG O2 Sat (Calc) 53 VBG Base Excess 16 H POC Mix VBG pCO2 Pt Tmp 63.9 H Respiration Rate 16 O2 Delivery Device Adult Vent Adult Vent Vent Mode CPAP/PS Tidal Volume 400.0 POC PEEP 8 Crit Call To/Read Back Blood Gas Notified Whom Blood Gas Notified Time Clinical Comments Attestation: I personally reviewed and interpreted this ABG as follows: (Chronic metabolic alkalosis with partial compensation and increased AA gradient) Imagaing Radiology Impression Chest X-Ray 07/24/23 11:05 IMPRESSION: Stable chest with no acute or active cardiopulmonary disease. Electronically Signed: Michael Yuen MD at 11:27 EST , Chest X-Ray 07/24/23 13:00 IMPRESSION: Endotracheal tube tip 3.2 cm above the narinder. NG tube should be advanced at least 6-80 cm. Stable cardiomegaly with hyperinflation. Electronically Signed: Michael Yuen MD at 13:32 EST , Charges/Coding Procedures Hospitalists Procedures: 42720 Critical Care 1st Hr
[2023-07-25] MEDS: dexMEDEtomidine 400 MCG in 0.9% Normal Saline (100mL Bag) 96 ML 17.3000000000000007 MCG CONT INF (08:45)
[2023-07-25] MEDS: Sodium Phosphate/Na Biphos 30 MMOL in 0.9% Normal Saline (250mL Bag) 250 ML 62.5 MMOL IV (08:49)
[2023-07-25] MEDS: Sodium Ferric Gluconat 250 MG in 0.9% Normal Saline 250 ML 135 MG IV (10:20)
[2023-07-25] MEDS: Ceftriaxone 2 GM in 0.9% Normal Saline (50mL MB+) 50 ML IV (10:22)
[2023-07-25] MEDS: guaiFENesin 10 ML UDC (200MG/10ML) NG ×4 (10:22→20:54)
[2023-07-25] MEDS: Chlorhexidine 15 ML PO ×2 (10:23→20:04)
[2023-07-25] MEDS: Pantoprazole Sodium 40 MG in 0.9% Normal Saline (100mL MB+) 100 ML 330 MG IV ×2 (12:42→20:51)
[2023-07-25] MEDS: Azithromycin 500 MG in Dextrose 5%-Water (250mL Bag) 250 ML 250 MG IV (14:30)
[2023-07-25] MEDS: dexMEDEtomidine 400 MCG in 0.9% Normal Saline (100mL Bag) 96 ML 18.5 MCG CONT INF (14:31)
[2023-07-25] MEDS: fentaNYL drip 100 ML 7.5 MCG CONT INF (14:32)
[2023-07-25] MEDS: Vital AF 1.2 Cal Liquid 1,000 ML 50 ML GT (14:47)
--- NOTE | 2023-07-25 16:40 | CASEMGMT ---
LION MALAVE Assessment: Pt currently intubated. RN ANANDA placed call to pt's sig other, Vin, as he was the only contact listed on pt's chart for initial transition planning/care coordination assessment. LION MALAVE introduced self and role at [facility]. Care providers, pharmacy, and demographics verified/updated. PCP: Isabel Rae. Specialists: Dr Enamorado, Licensed Chemical Spray Technician Preferred Pharmacy: [facility] [place] Insurance: [facility] Dual Prescription Benefit: Yes. LW/HPOA: Vin states he does not think pt has completed a LW or [place] POA LNOK: Pt has a daughter, Bettye Jefferson, and a son, Caden Chaidez. Vin is pt's significant other. Vin told this RN CM that he does not have phone numbers for Bettye or Caden. He inquired of RN ANANDA why this was being asked. RN ANANDA explained that Bettye and Caden were her LNOK, and since pt does not have a HCPOA, that they would be medical decision makers for pt while she is unable to make decisions. Vin became upset and stated, I've been making these decisions for her up until now and if this is what you're telling me then I'm done w/this conversation. I don't appreciate how you're making me feel telling me that I wouldn't be the one to make those decisions . RN ANANDA explained to him about LNOK and laws re: this and importance of POA, if pt wishes for someone else to be decision maker to carry out her medical wishes other than her children. Vin asks that someone talk to pt once she is able to make those decisions to see if she would like to complete POA papers. VM left on SW, Jaimee's # re: same. Living Arrangements: Pt lives with Vin and Vin's parents in 2-story home w/no steps to enter. FFSU. Vin states he assists pt w/bathing and putting her socks/shoes on. She mostly is able to dress self, otherwise. He states assists her any time she is up walking around d/t she is at risk of falling and has SOB when up. He sets up pt's weekly pill containers and does all home mgmt tasks. Transportation: Vin or dtr DME: Pt has the following: rollator, wheelchair, shower chair, bedside commode, nebulizer, pulse ox, and O2 through [facility], that she wears @ 3 l/m continuously. LION MALAVE did verify this w/[facility] HHC/SNF: No hx of either. Vin states he would like to take pt home @ discharge, if able. Plan: TBD. Pt currently intubated. Therapy evals pending. Yesenia CHUNG RN CM
[2023-07-25] MEDS: Propofol 10MG/Ml 1,000 MG/100 ML Bottle 4.40000000000000036 MG CONT INF (19:55)
[2023-07-25] MEDS: Dexmedetomidine 1,000 mcg in 0.9% NS 240 mL 18.5 MCG CONT INF (20:00)
[2023-07-26] VITALS (37 sets, daily range): BP systolic 87–135; BP diastolic 53–102; PULSE 91–146; RESP 14–26; TEMP 36.5–37.5; O2SAT 91–98; BMI 17.2
[2023-07-26] MEDS: fentaNYL drip 100 ML 10 MCG CONT INF ×3 (00:39→22:41)
[2023-07-26] MEDS: guaiFENesin 10 ML UDC (200MG/10ML) NG ×6 (01:10→21:09)
[2023-07-26] MEDS: CHLORHEXIDINE GLUC 2% CLOTH 1 EACH TOWELETTE TOPICAL (01:11)
[2023-07-26] MEDS: Ipratropium/Albuterol Sulfate 3 ML AMPUL.NEB INHALATION ×6 (02:17→23:22)
[2023-07-26 03:22] LABS: Absolute Lymphocyte Count 0.29 X10^3/uL (0.83-4.51); Absolute Neutrophil Count 5.9 X10^3/uL (2.0-7.7); Hematocrit 27.3 % (37-47); Hemoglobin 7.8 g/dL (12.0-15.0); Lymphocyte # 0.29 X10^3/ul (0.83-4.51); Lymphocyte % 4.4 % (19-41); Mean Corp Hgb Conc 28.6 g/dL (32-36); Mean Platelet Vol. 11.3 fl (6.2-12.0); Monocyte# 0.35 X10^3/uL; Monocyte% 5.4 % (0-10); NRBC Flagged by Analyzer 0 % (0-5); Neutrophil # 5.86 X10^3/uL (2.7-7.7); Neutrophil % 89.6 % (47-70); POSITIVE DIFFERENTIAL YES; Platelet Count 169 K/mm3 (150-450); RBC Distribution Width CV 15.4 % (11.6-14.6); RBC Distribution Width SD 47.8 fl (35.1-43.9); Red Blood Count 3.25 M/mm3 (4.2-5.4); White Blood Count 6.5 K/mm3 (4.4-11.0)
[2023-07-26 03:39] LABS: Differential Indicated SCAN CRITERIA MET
[2023-07-26 03:43] LABS: Anion Gap 6 (5-15); BUN 21 mg/dL (7-18); BUN/Creat Ratio 56.3 RATIO (10-20); Calcium,Total 8.5 mg/dL (8.5-10.1); Chloride 105 mmol/L (98-107); Creatinine, Serum 0.37 mg/dL (0.55-1.02); EST Glomerular Filtration Rate 185 mL/min (>60); Est Glom Filt Rate - Afr Amer 224 mL/min (>60); Estimated Creatinine Clearance 120.76 ml/min; Glucose 148 mg/dL (74-106); Phosphorus 2.7 mg/dL (2.5-4.9); Potassium 3.6 mmol/L (3.5-5.1); Sodium Level 142 mmol/L (136-145); T4 Free Direct 1.12 ng/dL (0.76-1.46)
[2023-07-26 03:53] LABS: Differential Comment SCANNED
[2023-07-26] MEDS: 0.9% Saline Lock 10 ML Syringe IV ×3 (04:46→21:02)
[2023-07-26] MEDS: TITRATION PARAMETER CHANGE 1 EACH IV (04:47)
[2023-07-26] MEDS: Propofol 10MG/Ml 1,000 MG/100 ML Bottle 4.5 MG CONT INF (06:34)
--- NOTE | 2023-07-26 08:43 | PN.HOSP_ITS ---
Reason for Visit Reason for Visit: Shortness of breath Subjective Subjective Episode of SVT overnight. Patient with tachypnea and tachycardia during her breathing trial so it was discontinued due to this. Does appear to have pneumonia with Proteus and Staph aureus with appropriate antibiotics on board. Objective Data Objective Data Vital Signs: Vital Signs Temp Pulse Resp BP Pulse Ox O2 Del Method O2 Flow Rate 99.1 F 109 H 18 135/65 H 95 Mechanical Ventilator 35 07/26/23 07:00 07/26/23 07:00 07/26/23 07:00 07/26/23 07:00 07/26/23 07:00 07/26/23 07:00 07/25/23 04:10 FiO2 35 07/26/23 07:00 Oxygen Flow Rate (L/min) 35 Oxygen Delivery Method Mechanical Ventilator Weight: 49.8 kg Body Mass Index (BMI) 17.2 Intake & Output: Intake and Output for Last 24 Hours 07/24/23 07/25/23 07/26/23 23:59 23:59 23:59 Intake Total 4793.19 / 4825.39 2406.70 / 2514.60 515.17 / 515.17 Output Total 175 / 500 1075 / 1325 550 / 550 Balance 4618.19 / 4325.39 1331.70 / 1189.60 -34.83 / -34.83 Lab / Micro Data 07/26/23 03:15 07/26/23 03:15 Labs: Laboratory Results - last 24 hr 07/26/23 03:15: WBC 6.5, RBC 3.25 L, Hgb 7.8 L, Hct 27.3 L, MCV 84.0, MCH 24.0 L , MCHC 28.6 L, RDW Std Deviation 47.8 H, RDW Coeff of Sami 15.4 H, Plt Count 169, MPV 11.3, Immature Gran % (Auto) 0.600, Neut % (Auto) 89.6 H, Lymph % (Auto) 4.4 L, Robertson % (Auto) 5.4, Eos % (Auto) 0.0, Baso % (Auto) 0.0, Absolute Neuts (auto) 5.9, Absolute Lymphs (auto) 0.29 L, Nucleated RBC % 0, Differential Comment SCANNED, Sodium 142, Potassium 3.6, Chloride 105, Carbon Dioxide 31.0, Anion Gap 6, BUN 21 H, Creatinine 0.37 L, Estim Creat Clear Calc 120.76, Est GFR (MDRD) Af Amer 224, Est GFR (MDRD) Non-Af 185, BUN/Creatinine Ratio 56.3 H, Glucose 148 H, Calcium 8.5, Phosphorus 2.7, Magnesium 2.0, Free T4 1.12 Micro: Microbiology 07/24/23 12:55 Sputum, Induced/Lukens Gram Stain - Final 07/24/23 12:55 Sputum, Induced/Lukens Respiratory Culture - Preliminary Proteus mirabilis Staphylococcus aureus 07/24/23 13:05 Urine Catheter - Lundberg Urine Culture - Final Proteus mirabilis 07/24/23 13:05 Urine Catheter - Lundberg Legionella Antigen - Final 07/24/23 13:05 Urine Catheter - Lundberg Streptococcus pneumoniae Antigen (M - Final 07/24/23 15:55 Mucosa - Nasopharyngeal Respiratory Panel (PCR) - Final 07/24/23 10:55 Nasal Secretion SARS-CoV-2 & FLU Antigen (Rapid) - Final 07/24/23 10:55 Mucosa - Nasopharyngeal RSV RNA Qualitative (PCR) - Final 07/24/23 11:00 Stool Stool Occult Blood (CAROLYNE) - Final Radiography Diagnostic Testing: Radiology Impression Echocardiogram 07/25/23 05:55 Interpretation Summary The study was technically difficult. Mild diffuse mitral valve thickening. Estimated left ventricular ejection fraction 40 to 45% Ordering Physician: Paulette Garrison Referring Physician: [facility] Performed By: Miranda Esquivel, OCTAVIANO, RVT Physical Exam Const alert; Negative for oriented x3, no apparent distress, average body habitus, healthy appearing or well nourished Constitutional Narrative: Severely cachectic white female who appears much older than stated age, lying in bed tapping her left arm on the side of the bed and pointing, more alert and interactive but appears somewhat agitated HEENT normocephalic and head/scalp atraumatic HEENT Narrative: Temporal wasting, ET tube in place, edentulous Resp normal respiratory effort, no retractions, no use of accessory muscles and No clear to auscultation bilaterally Resp Narrative: Currently intubated, diminished but clear Auscultation: Negative for rales, rhonchi or wheezes Cardio regular rhythm, S1 normal heart sound, S2 normal heart sound, no murmurs, no rub, no gallops and no clicks Cardio Narrative: Mild tachycardia GI normal to inspection, nondistended, normoactive bowel sounds, soft to palpation and non-tender GI Narrative: Markedly scaphoid abdomen Extremity Extremity Narrative: No edema, severely diminished lean muscle mass, no cyanosis, clubbing is present Neuro No oriented x3 and moves all extremities Neuro Narrative: Spontaneously moves all 4 extremities, intermittently follows commands Sensorium / Orientation: awake and alert Speech: Negative for speech normal Psych Psych Narrative: Unable to assess Assessment & Plan Assessment/Plan (1) Elevated brain natriuretic peptide (BNP) level: (2) Stage 4 very severe COPD by GOLD classification: (3) Elevated troponin I level: (4) Severe malnutrition: (5) Pulmonary cachexia due to COPD: (6) Respiratory acidosis: (7) Acute anemia: (8) Hypotension: PLAN: Plan Acute on chronic hypoxic and hypercapnic respiratory failure secondary to acute exacerbation of COPD -Placed on BiPAP on presentation however pH did not improve after 2 hours on BiPAP and therefore we intubated her for persistent hypercapnia and somnolence -Patient remains on mechanical ventilation however FiO2 has been weaned to 35% -Doing fair on her spontaneous breathing trial today -At baseline patient uses 2.5 L with exertion only -Continue Solu-Medrol 40 every 8 -Aggressive pulmonary toilet -Start I-S and Pep therapy once off ventilator -COVID and flu are negative -Respiratory viral panel is unremarkable -Urine cultures positive for Proteus however colony counts are less than 1000 so this is likely asymptomatic bacteriuria -Sputum cultures are positive for Staph aureus (MSSA) and Proteus -Both are sensitive to ceftriaxone -Continue ceftriaxone 2 g daily to complete treatment for pneumonia day 3 of 7 -Continue azithromycin for anti-inflammatory purposes -Lasix 20 mg IV push x 1 dose -Pulmonary medicine following-discussed with Dr. Fei Acute on chronic respiratory acidosis -Acute on Chronic -2 appears to be between 55 and 65 -Treatment as above Hypotension -Resolved Troponin elevation -Type II NSTEMI secondary to acute respiratory failure as noted above -Echocardiogram shows an EF of 40 to 45% and diffuse mitral valve thickening which is stable compared to previous -No acute ischemia noted on EKG Acute on chronic anemia -Hemoglobin is stabilized at 7.8 -Guaiac on admission was negative but will repeat -Hemoglobin drop may be dilutional with fluids given for sepsis -Hold Eliquis for now -Iron studies are somewhat suggestive of iron deficiency -Will dose IV iron 200 x 3 doses--> day 2 of 3 -No obvious signs of acute blood loss -Will monitor -Consult GI with iron studies trending towards iron deficiency PAF -Patient has history of paroxysmal atrial fibrillation that especially worsens when she is in respiratory distress as anticipated -Some SVT overnight so we will start metoprolol 12.5 mg p.o. twice daily via G- tube -Does not appear to be on rate controlling medications at baseline -Hold apixaban due to drop in hemoglobin HFrEF-nonischemic cardiomyopathy -Last echocardiogram from 07/10/2022 shows an EF of 40% with mild global hypokinesis of the LV and mild to moderate mitral valve insufficiency -Echocardiogram done yesterday is stable with an EF of 40 to 45% with moderate mitral valve insufficiency -Hold home lisinopril -Patient is not on a beta-julianna at baseline but I am starting low-dose metoprolol due to the SVT overnight and history of A-fib -Would recommend outpatient cardiology follow-up with outpatient noninvasive stress testing after stabilized clinically if echo shows no wall motion abnormality Severe malnutrition -Likely related to pulmonary cachexia -Continue tube feed and advance as able -Dietitian following -BMI is 15.6 -Supplements to be added once respiratory status is stable and patient is able to take a p.o. diet COPD Gold stage IV -Baseline FEV1 was 25% predicted -Wears 2.5 L of oxygen at baseline -Continue supplemental oxygen as noted -Hold inhalers -Pulmonary toilet as above -Follows with Dr. Enamorado as an outpatient -Still smoking Hypertension -Hold home lisinopril -Already metoprolol 12.5 mg p.o. twice daily -As needed hydralazine Tobacco abuse -Patient with ongoing tobacco abuse -Recommend cessation Depression -Patient is no longer taking anything for this DVT prophylaxis -Hold apixaban with drop in hemoglobin -Start SCDs CODE STATUS -Full code is reviewed with the prior to leaving the emergency de partment by the emergency department physician -Overall prognosis is extremely poor and with the severity of her lung disease she will likely be very difficult to extubate Charges/Coding Visit Charges Inpatient E&M: 47784 Subs Hosp L2
--- NOTE | 2023-07-26 08:55 | PCM.PN.INT ---
Assessment & Plan Assessment/Plan (1) COPD with acute exacerbation: (2) Pulmonary cachexia due to COPD: (3) Acute on chronic respiratory failure with hypoxia and hypercapnia: (4) Stage 4 very severe COPD by GOLD classification: (5) Non-ischemic cardiomyopathy: PLAN: Plan RECOMMENDATIONS: 1. Continue mechanical ventilation. Spontaneous breathing and awakening trials per protocol 2. Continue empiric antibiotics. Transition to Levaquin 3. Continue tube feeds 4. Continue bronchodilators, steroids and mucolytic 5. Initiate bowel regimen IMPRESSIONS: 1. Acute on chronic combined respiratory failure secondary to COPD exacerbation Patient with advanced lung disease at baseline with continued smoking and likely progression of disease. Viral panel was negative at this time. Infiltrates will be difficult to evaluate as patient has very little lung parenchyma. Patient did have a slightly elevated BNP, but it is unclear if this is related to strain related to hypoxia. Patient will be given a low-dose of diuretics. Patient did have a fever overnight. Will transition patient to Levaquin. Spontaneous breathing and awakening trials per protocol. Patient is on steroids and bronchodilators. 2. Elevated troponin/chronic systolic CHF Patient did have a slightly elevated troponin on presentation. It is unclear if this is secondary to global hypoxemia. Last EF was in June of last year showing 40% with mild global hypokinesis of the left ventricle. Repeat echocardiogram shows little change. Patient did not present with severe hypertension to suggest flash pulmonary edema. 3. Severe protein malnutrition Patient has significantly reduced BMI. Patient likely has an element of pulmonary cachexia. Patient is also showing signs of iron deficiency. Dietitian has been consulted. Okay to continue tube feeds from my perspective. 4. Tobacco abuse/hypertension/debility/anemia Complicates care, management, recovery and prognosis. Will need PT and OT to evaluate patient. Patient did have a significant drop in hemoglobin, but this may be slightly delusional as all cell counts are down. Patient does appear to have an element of iron deficiency. TIME: 32 minutes critical care time spent addressing patient's respiratory failure, elevated troponin, malnutrition, review of all data and collaboration with care team Subjective Subjective Patient did okay overnight from a hemodynamic standpoint. Patient did have a mild fever of 38.2 ?C, but has had significant SVT issues overnight. No cardioversions or interventions have been required. Patient has not had significant secretions. Patient unable to tolerate spontaneous breathing trial this morning secondary to tachypnea and tachycardia. No bowel movements have been recorded. Objective Data Objective Data Echocardiogram is showing an EF of 40% with mitral valve thickening. Patient also has sputum positive for MSSA and Proteus that appear to be pansensitive. Vital Signs: Vital Signs Temp Pulse Resp BP Pulse Ox O2 Del Method O2 Flow Rate 37.3 C 109 H 18 135/65 H 95 Mechanical Ventilator 35 07/26/23 07:00 07/26/23 07:00 07/26/23 07:00 07/26/23 07:00 07/26/23 07:00 07/26/23 08:44 07/25/23 04:10 FiO2 35 07/26/23 08:44 Oxygen Flow Rate (L/min) 35 Oxygen Delivery Method Mechanical Ventilator Weight: 49.8 kg Body Mass Index (BMI) 17.2 Intake & Output: Intake and Output for Last 24 Hours 07/24/23 07/25/23 07/26/23 23:59 23:59 23:59 Intake Total 4793.19 / 4825.39 2406.70 / 2514.60 595.17 / 595.17 Output Total 175 / 500 1075 / 1325 550 / 550 Balance 4618.19 / 4325.39 1331.70 / 1189.60 45.17 / 45.17 Lab / Micro Data Attestation: I reviewed the patient's lab results. 07/26/23 03:15 07/26/23 03:15 Labs: Laboratory Results - last 24 hr 07/26/23 03:15: WBC 6.5, RBC 3.25 L, Hgb 7.8 L, Hct 27.3 L, MCV 84.0, MCH 24.0 L, MCHC 28.6 L, RDW Std Deviation 47.8 H, RDW Coeff of Sami 15.4 H, Plt Count 169, MPV 11.3, Immature Gran % (Auto) 0.600, Neut % (Auto) 89.6 H, Lymph % (Auto) 4.4 L, [place] % (Auto) 5.4, Eos % (Auto) 0.0, Baso % (Auto) 0.0, Absolute Neuts (auto) 5.9, Absolute Lymphs (auto) 0.29 L, Nucleated RBC % 0, Differential Comment SCANNED, Sodium 142, Potassium 3.6, Chloride 105, Carbon Dioxide 31.0, Anion Gap 6, BUN 21 H, Creatinine 0.37 L, Estim Creat Clear Calc 120.76, Est GFR (MDRD) Af Amer 224, Est GFR (MDRD) Non-Af 185, BUN/Creatinine Ratio 56.3 H, Glucose 148 H, Calcium 8.5, Phosphorus 2.7, Magnesium 2.0, Free T4 1.12 Micro: Microbiology 07/24/23 12:55 Sputum, Induced/Lukens Gram Stain - Final 07/24/23 12:55 Sputum, Induced/Lukens Respiratory Culture - Preliminary Proteus mirabilis Staphylococcus aureus 07/24/23 13:05 Urine Catheter - Lundberg Urine Culture - Final Proteus mirabilis 07/24/23 13:05 Urine Catheter - [facility]berg Legionella Antigen - Final 07/24/23 13:05 Urine Catheter - [facility] Streptococcus pneumoniae Antigen (M - Final 07/24/23 15:55 Mucosa - Nasopharyngeal Respiratory Panel (PCR) - Final 07/24/23 10:55 Nasal Secretion SARS-CoV-2 & FLU Antigen (Rapid) - Final 07/24/23 10:55 Mucosa - Nasopharyngeal RSV RNA Qualitative (PCR) - Final 07/24/23 11:00 Stool Stool Occult Blood (CAROLYNE) - Final Radiography Diagnostic Testing: Radiology Impression Echocardiogram 07/25/23 05:55 Interpretation Summary The study was technically difficult. Mild diffuse mitral valve thickening. Estimated left ventricular ejection fraction 40 to 45% Ordering Physician: Paulette Garrison Referring Physician: [facility] Performed By: Miranda Esquivel, OCTAVIANO, RVT Physical Exam Const Constitutional Narrative: Intubated and sedated. RASS +1. Good vent synchrony. General Appearance: patient mechanically ventilated HEENT normocephalic and head/scalp atraumatic Eyes PERRL, conjunctivae normal and no scleral icterus Neck full ROM Chest Chest: abnormal inspection of the chest increased A-P diameter Resp Auscultation: wheezes and diminished lung sounds diffuse (Severely); Negative for rales or rhonchi Cardio regular rhythm, S1 normal heart sound, S2 normal heart sound, no murmurs, no rub and no gallops Rate: tachycardic GI normal to inspection, nondistended, normoactive bowel sounds Extremity General Extremity: clubbing; Negative for edema Skin no rashes or lesions noted Neuro Sensorium / Orientation: sedated on vent Psych Activity / Motor Behavior: restless Mood & Affect: anxious Charges/Coding Procedures Hospitalists Procedures: 56807 Critical Care 1st Hr
[2023-07-26] MEDS: Pantoprazole Sodium 40 MG in 0.9% Normal Saline (100mL MB+) 100 ML 330 MG IV ×2 (09:14→21:03)
[2023-07-26] MEDS: Dexmedetomidine 1,000 mcg in 0.9% NS 240 mL 18.6999999999999993 MCG CONT INF ×2 (09:15→22:40)
[2023-07-26] MEDS: Metoprolol Tartrate 25 MG Tablet 12.5 MG GT ×2 (09:41→21:02)
[2023-07-26] MEDS: Furosemide 20 MG/2 ML VIAL IV (09:42)
[2023-07-26] MEDS: levoFLOXacin IV 500 MG/100 ML BAG 100 MG IV (09:42)
[2023-07-26] MEDS: Chlorhexidine 15 ML PO ×2 (09:42→21:02)
[2023-07-26] MEDS: Sodium Ferric Gluconat 250 MG in 0.9% Normal Saline 250 ML 135 MG IV (11:01)
[2023-07-26] MEDS: Polyethylene Glycol 3350 17 GM PACKET GT (12:37)
[2023-07-26] MEDS: Propofol 10MG/Ml 1,000 MG/100 ML Bottle 9 MG CONT INF (15:37)
--- NOTE | 2023-07-26 16:44 | EX.PCM.CON.G ---
HPI Consult Data Date of Consult: 07/26/23 HPI Narrative Reason for Consultation: Anemia HPI Narrative: KARYNA SALEH, is a 62 F who presented to the emergency department at [facility] on 07/24/2023 with shortness of breath and lethargy. She has a past medical history of stage IV by Gold classification (severe COPD) patient was brought in by personal car and had to be pulled from the car due to significant dyspnea. On presentation and currently she is lethargic but able to answer a few questions appropriately. She denies any chest pain or shortness of breath. I was asked to see her due to her decreasing hemoglobin. She has no history of GI bleed in the past that she remembers. She takes apixaban for atrial fibrillation. [facility] Medical History Acute on chronic respiratory failure with hypoxia and hypercapnia Afib Chronic respiratory failure with hypoxia Elevated troponin I level Essential (primary) hypertension History of non-ST elevation myocardial infarction (NSTEMI) (06/21/19) Hyperglycemia Hyperlipidemia Leukocytosis Non-ischemic cardiomyopathy On home oxygen therapy DONNA (obstructive sleep apnea) Protein calorie malnutrition Smoker Stage 4 very severe COPD by GOLD classification Home Medications acetaminophen 500 mg tablet 1,000 mg PO DAILY PRN PRN Pain Or Fever 10/04/18 [History Last Taken 06/13/19] lisinopril 10 mg tablet 10 mg PO DAILY BP 10/04/18 [History Last Taken 06/14/19] albuterol sulfate 2.5 mg/3 mL (0.083 %) solution for nebulization 2.5 mg (3 mL) inhalation Q6H #180 mL 12/30/22 [Rx Last Taken Unknown] Disability Placard #1 ea 03/15/23 [Rx Last Taken Unknown] apixaban 5 mg tablet (Eliquis) 5 mg PO BID #60 tabs 03/15/23 [Rx Last Taken Unknown] tiotropium bromide 1.25 mcg/actuation mist for inhalation (Spiriva Respimat) 2 puff inhalation DAILY #4 grams 03/15/23 [Rx Last Taken Unknown] budesonide-formoterol HFA 160 mcg-4.5 mcg/actuation aerosol inhaler (Symbicort) 2 puff inhalation BID #10.2 grams 05/26/23 [Rx Last Taken Unknown] albuterol sulfate 90 mcg/actuation aerosol inhaler 2 inh PO Q4H PRN shortness of breath or wheezing #8.5 grams 06/24/23 [Rx Last Taken Unknown] pantoprazole 40 mg tablet,delayed release mg PO 07/24/23 [History Last Taken Unknown] Allergy/AdvReac Type Severity Reaction Status Date / Time atorvastatin [From Lipitor] Allergy Unknown Unknown Verified 03/21/23 11:43 codeine Allergy Rash Verified 03/21/23 11:43 ibuprofen Allergy Rash Verified 03/21/23 11:43 Family History Father Lung cancer Mother Breast cancer Parkinsons disease Surgical History H/O tubal ligation Social History household members: significant other housing: house Smoking Status: Current every day smoker tobacco type: cigarettes alcohol intake: never substance use type: does not use ROS Review of Systems ROS Unobtainable: due to endotracheal tube Lab / Micro Data 07/26/23 03:15 07/26/23 03:15 Labs: Laboratory Results - last 24 hr 07/26/23 03:15: WBC 6.5, RBC 3.25 L, Hgb 7.8 L, Hct 27.3 L, MCV 84.0, MCH 24.0 L, MCHC 28.6 L, RDW Std Deviation 47.8 H, RDW Coeff of Sami 15.4 H, Plt Count 169, MPV 11.3, Immature Gran % (Auto) 0.600, Neut % (Auto) 89.6 H, Lymph % (Auto) 4.4 L, Ritchie % (Auto) 5.4, Eos % (Auto) 0.0, Baso % (Auto) 0.0, Absolute Neuts (auto) 5.9, Absolute Lymphs (auto) 0.29 L, Nucleated RBC % 0, Differential Comment SCANNED, Sodium 142, Potassium 3.6, Chloride 105, Carbon Dioxide 31.0, Anion Gap 6, BUN 21 H, Creatinine 0.37 L, Estim Creat Clear Calc 120.76, Est GFR (MDRD) Af Amer 224, Est GFR (MDRD) Non-Af 185, BUN/Creatinine Ratio 56.3 H, Glucose 148 H, Calcium 8.5, Phosphorus 2.7, Magnesium 2.0, Free T4 1.12 Micro: Microbiology 07/24/23 11:17 Blood Culture (Wb) #2 - Anticubital Left Blood Culture - Preliminary No growth in 48 hours. 07/24/23 10:35 Blood Culture (Wb) - No Site/Description Given Blood Culture - Preliminary No growth in 48 hours. 07/24/23 12:55 Sputum, Induced/Lukens Gram Stain - Final 07/24/23 12:55 Sputum, Induced/Lukens Respiratory Culture - Preliminary Proteus mirabilis Staphylococcus aureus 07/24/23 13:05 Urine Catheter - Lundberg Urine Culture - Final Proteus mirabilis 07/24/23 13:05 Urine Catheter - [place]berg Legionella Antigen - Final 07/24/23 13:05 Urine Catheter - [place] Streptococcus pneumoniae Antigen (M - Final Assessment & Plan Assessment/Plan (1) COPD with acute exacerbation: (2) Pulmonary cachexia due to COPD: (3) Acute on chronic respiratory failure with hypoxia and hypercapnia: (4) Stage 4 very severe COPD by GOLD classification: (5) Non-ischemic cardiomyopathy: (6) Respiratory acidosis: (7) Acute anemia: (8) Hypotension: PLAN: Plan Acute on chronic respiratory failure with hypoxia and hypercapnia currently intubated and on tube feedings. -Anemia: think she would benefit from an upper endoscopy to evaluate upper GI tract because infection needs to be on anticoagulation for A-fib. She is intubated at this time. It can be done before after she is extubated. For now continue on PPI therapy twice a day with Protonix 40 mg twice a day. Charges/Coding Visit Charges Inpatient E&M: 94734 Init Hosp L3
[2023-07-26] MEDS: Vital AF 1.2 Cal Liquid 1,000 ML 50 ML GT (17:00)
[2023-07-26 18:13] LABS: Internal QC Validated? YES +Cl - CLEAR BKGD; Pregnancy, Urine Negative Negative
[2023-07-27] VITALS (37 sets, daily range): BP systolic 107–157; BP diastolic 63–109; PULSE 75–145; RESP 16–21; TEMP 36.9–37.4; O2SAT 88–100; BMI 17.9
[2023-07-27] MEDS: Propofol 10MG/Ml 1,000 MG/100 ML Bottle 10.5 MG CONT INF (00:07)
[2023-07-27] MEDS: guaiFENesin 10 ML UDC (200MG/10ML) NG ×4 (00:08→21:06)
[2023-07-27] MEDS: Ipratropium/Albuterol Sulfate 3 ML AMPUL.NEB INHALATION ×5 (02:29→20:59)
[2023-07-27 03:11] LABS: Absolute Lymphocyte Count 0.23 X10^3/uL (0.83-4.51); Absolute Neutrophil Count 5.1 X10^3/uL (2.0-7.7); Hematocrit 26.9 % (37-47); Hemoglobin 7.8 g/dL (12.0-15.0); Lymphocyte # 0.23 X10^3/ul (0.83-4.51); Lymphocyte % 4.1 % (19-41); Mean Corpuscular Hgb 24.3 pg (27.0-32.0); Mean Corpuscular Volume 83.8 fL (81-99); Mean Platelet Vol. 11.7 fl (6.2-12.0); Monocyte# 0.31 X10^3/uL; Monocyte% 5.5 % (0-10); NRBC Flagged by Analyzer 0 % (0-5); Neutrophil # 5.08 X10^3/uL (2.7-7.7); Neutrophil % 89.9 % (47-70); POSITIVE DIFFERENTIAL YES; Platelet Count 177 K/mm3 (150-450); RBC Distribution Width CV 15.6 % (11.6-14.6); RBC Distribution Width SD 47.5 fl (35.1-43.9); Red Blood Count 3.21 M/mm3 (4.2-5.4); White Blood Count 5.7 K/mm3 (4.4-11.0)
[2023-07-27 03:33] LABS: ALB/GLOB Ratio 0.9 RATIO (0.9-2.4); AST(SGOT) 18 U/L (15-37); Alanine Aminotransfer ALT/SGPT 17 U/L (13-56); Albumin, Serum 2.7 g/dL (3.2-5.0); Alkaline Phosphatase 46 U/L (45-117); Anion Gap 6 (5-15); BUN 17 mg/dL (7-18); BUN/Creat Ratio 49.4 RATIO (10-20); Calcium,Total 8.5 mg/dL (8.5-10.1); Chloride 104 mmol/L (98-107); Creatinine, Serum 0.34 mg/dL (0.55-1.02); EST Glomerular Filtration Rate 203 mL/min (>60); Est Glom Filt Rate - Afr Amer 245 mL/min (>60); Estimated Creatinine Clearance 131.42 ml/min; Globulin 2.9 g/dL (2.2-4.2); Glucose 142 mg/dL (74-106); Potassium 3.5 mmol/L (3.5-5.1); Protein, Total 5.6 g/dL (6.4-8.2); Sodium Level 141 mmol/L (136-145)
[2023-07-27 03:45] LABS: Differential Indicated SCAN CRITERIA MET
[2023-07-27 03:46] LABS: Differential Comment SCANNED
[2023-07-27] MEDS: CHLORHEXIDINE GLUC 2% CLOTH 1 EACH TOWELETTE TOPICAL (05:03)
[2023-07-27] MEDS: 0.9% Saline Lock 10 ML Syringe IV ×4 (05:03→13:26)
[2023-07-27] MEDS: Propofol 10MG/Ml 1,000 MG/100 ML Bottle 12.5 MG CONT INF ×2 (08:11→17:00)
[2023-07-27] MEDS: Furosemide 40 MG/4 ML Vial IV (08:23)
[2023-07-27] MEDS: Potassium Chloride 10mEq/100mL 10 MEQ/100 ML IV.SOLN. 100 MEQ IV BOLUS ×3 (08:23→10:27)
--- NOTE | 2023-07-27 09:11 | PCM.PN.HOSP ---
Reason for Visit Reason for Visit: Shortness of breath Subjective Subjective No issues overnight. FiO2 did increase some yesterday afternoon to 40% but this morning we have been able to wean it back down to 35%. Plan is for EGD later today. Patient is awake and able to follow commands on ventilator. Objective Data Objective Data Vital Signs: Vital Signs Temp Pulse Resp BP Pulse Ox O2 Del Method O2 Flow Rate 98.9 F 84 16 132/76 H 96 Mechanical Ventilator 35 07/27/23 07:00 07/27/23 07:27 07/27/23 07:27 07/27/23 07:00 07/27/23 07:27 07/27/23 08:00 07/25/23 04:10 FiO2 35 07/27/23 08:00 Oxygen Flow Rate (L/min) 35 Oxygen Delivery Method Mechanical Ventilator Weight: 52 kg Body Mass Index (BMI) 17.9 Intake & Output: Intake and Output for Last 24 Hours 07/25/23 07/26/23 07/27/23 23:59 23:59 23:59 Intake Total 2406.70 / 2514.60 2483.07 / 2522.27 766.94 / 766.94 Output Total 1075 / 1325 2250 / 2250 650 / 650 Balance 1331.70 / 1189.60 233.07 / 272.27 116.94 / 116.94 Lab / Micro Data 07/27/23 03:05 07/27/23 03:05 Labs: Laboratory Results - last 24 hr 07/26/23 18:05: Urine Test Negative 07/27/23 03:05: WBC 5.7, RBC 3.21 L, Hgb 7.8 L, Hct 26.9 L, MCV 83.8, MCH 24.3 L, MCHC 29.0 L, RDW Std Deviation 47.5 H, RDW Coeff of Sami 15.6 H, Plt Count 177, MPV 11.7, Immature Gran % (Auto) 0.500, Neut % (Auto) 89.9 H, Lymph % (Auto) 4.1 L, [place] % (Auto) 5.5, Eos % (Auto) 0.0, Baso % (Auto) 0.0, Absolute Neuts (auto) 5.1, Absolute Lymphs (auto) 0.23 L, Nucleated RBC % 0, Differential Comment SCANNED, Sodium 141, Potassium 3.5, Chloride 104, Carbon Dioxide 31.0, Anion Gap 6, BUN 17, Creatinine 0.34 L, Estim Creat Clear Calc 131.42, Est GFR (MDRD) Af Amer 245, Est GFR (MDRD) Non-Af 203, BUN/Creatinine Ratio 49.4 H, Glucose 142 H, Calcium 8.5, Total Bilirubin 0.20, AST 18, ALT 17, Alkaline Phosphatase 46, Total Protein 5.6 L, Albumin 2.7 L, Globulin 2.9, Albumin/Globulin Ratio 0.9 Micro: Microbiology 07/24/23 11:17 Blood Culture (Wb) #2 - Anticubital Left Blood Culture - Preliminary No growth in 48 hours. 07/24/23 10:35 Blood Culture (Wb) - No Site/Description Given Blood Culture - Preliminary No growth in 48 hours. 07/24/23 12:55 Sputum, Induced/Lukens Gram Stain - Final 07/24/23 12:55 Sputum, Induced/Lukens Respiratory Culture - Preliminary Proteus mirabilis Staphylococcus aureus 07/24/23 13:05 Urine Catheter - Lundberg Urine Culture - Final Proteus mirabilis 07/24/23 13:05 Urine Catheter - [place]berg Legionella Antigen - Final 07/24/23 13:05 Urine Catheter - [facility]berg Streptococcus pneumoniae Antigen (M - Final 07/24/23 15:55 Mucosa - Nasopharyngeal Respiratory Panel (PCR) - Final 07/24/23 10:55 Nasal Secretion SARS-CoV-2 & FLU Antigen (Rapid) - Final 07/24/23 10:55 Mucosa - Nasopharyngeal RSV RNA Qualitative (PCR) - Final 07/24/23 11:00 Stool Stool Occult Blood (CAROLYNE) - Final Physical Exam Const alert; Negative for oriented x3, no apparent distress, average body habitus, healthy appearing or well nourished Constitutional Narrative: Severely cachectic white female who appears much older than stated age, lying in bed awake, nursing at bedside, patient interacts appropriately and is able to follow all commands HEENT normocephalic and head/scalp atraumatic HEENT Narrative: ET tube/OG in place Resp normal respiratory effort, no retractions, no use of accessory muscles and No clear to auscultation bilaterally Resp Narrative: Currently intubated, diminished but clear Auscultation: Negative for rales, rhonchi or wheezes Cardio regular rate, regular rhythm, S1 normal heart sound, S2 normal heart sound, no murmurs, no rub, no gallops and no clicks Cardio Narrative: Few ectopic beats GI normal to inspection, nondistended, normoactive bowel sounds, soft to palpation and non-tender GI Narrative: Markedly scaphoid abdomen Extremity Extremity Narrative: No edema, severely diminished lean muscle mass, no cyanosis, clubbing is present Neuro No oriented x3 and moves all extremities Neuro Narrative: Spontaneously moves all 4 extremities, consistently follows commands Sensorium / Orientation: awake and alert Speech: Negative for speech normal Psych Psych Narrative: Unable to assess Assessment & Plan Assessment/Plan (1) Elevated brain natriuretic peptide (BNP) level: (2) Stage 4 very severe COPD by GOLD classification: (3) Elevated troponin I level: (4) Severe malnutrition: (5) Pulmonary cachexia due to COPD: (6) Respiratory acidosis: (7) Acute anemia: (8) Hypotension: (9) Staphylococcus aureus pneumonia: (10) Proteus pneumonia: PLAN: Plan Acute on chronic hypoxic and hypercapnic respiratory failure secondary to acute exacerbation of COPD/Staph aureus and Proteus pneumonia -Placed on BiPAP on presentation however pH did not improve after 2 hours on BiPAP and therefore we intubated her for persistent hypercapnia and somnolence -Intubated 07/23/2023 -Patient remains on mechanical ventilation with an FiO2 of 35% -At baseline patient uses 2.5 L with exertion only -Sputum cultures are positive for Proteus and Staph aureus (MSSA) -Continue Solu-Medrol 40 every 8 -Aggressive pulmonary toilet -Continue ceftriaxone 2 g daily to complete treatment for pneumonia day 4 of 7 -Continue azithromycin for anti-inflammatory purposes -Will give Lasix 40 mg x 1 dose again today -Pulmonary medicine following-discussed with Dr. Enamorado Acute on chronic respiratory acidosis -Acute on Chronic -2 appears to be between 55 and 65 -Treatment as above Troponin elevation -Type II NSTEMI secondary to acute respiratory failure as noted above -Echocardiogram shows an EF of 40 to 45% and diffuse mitral valve thickening which is stable compared to previous -No acute ischemia noted on EKG Acute on chronic anemia -Hemoglobin is stabilized at 7.8 -Guaiac on admission was negative but will repeat -Hemoglobin drop may be dilutional with fluids given for sepsis -Continue to hold Eliquis -Iron studies are somewhat suggestive of iron deficiency -Will dose IV iron 200 x 3 doses--> day 3 of 3 -No obvious signs of acute blood loss -Will monitor -GI has been consulted and is plan is for EGD later today PAF -Patient has history of paroxysmal atrial fibrillation that especially worsens when she is in respiratory distress as anticipated -Continue metoprolol but increase to 25 mg p.o. twice daily -Does not appear to be on rate controlling medications at baseline -Hold apixaban due to drop in hemoglobin -EGD later today HFrEF-nonischemic cardiomyopathy -Last echocardiogram from 07/10/2022 shows an EF of 40% with mild global hypokinesis of the LV and mild to moderate mitral valve insufficiency -Echocardiogram done yesterday is stable with an EF of 40 to 45% with moderate mitral valve insufficiency -Hold home lisinopril -Patient is not on a beta-julianna at baseline but I am starting low-dose metoprolol due to the SVT overnight and history of A-fib -Would recommend outpatient cardiology follow-up with outpatient noninvasive stress testing after stabilized clinically if echo shows no wall motion abnormality Severe malnutrition -Likely related to pulmonary cachexia -Continue tube feed and advance as able -Dietitian following -BMI is 18 -Supplements to be added once respiratory status is stable and patient is able to take a p.o. diet COPD Gold stage IV -Baseline FEV1 was 25% predicted -Wears 2.5 L of oxygen at baseline -Continue supplemental oxygen as noted -Hold inhalers -Pulmonary toilet as above -Follows with Dr. Enamorado as an outpatient -Still smoking Hypertension -Hold home lisinopril -Already metoprolol 12.5 mg p.o. twice daily -As needed hydralazine Tobacco abuse -Patient with ongoing tobacco abuse -Recommend cessation Depression -Patient is no longer taking anything for this DVT prophylaxis -Hold apixaban with drop in hemoglobin -Start SCDs CODE STATUS -Full code is reviewed with the prior to leaving the emergency department by the emergency department physician -Overall prognosis is extremely poor and with the severity of her lung disease she will likely be very difficult to extubate Charges/Coding Visit Charges Inpatient E&M: 24847 Subs Hosp L2
[2023-07-27] MEDS: Chlorhexidine 15 ML PO ×2 (09:24→21:07)
[2023-07-27] MEDS: Sodium Ferric Gluconat 250 MG in 0.9% Normal Saline 250 ML 135 MG IV (09:46)
[2023-07-27] MEDS: Metoprolol Tartrate 25 MG Tablet GT ×2 (09:47→21:06)
[2023-07-27] MEDS: Potassium Chloride Oral Soln 20 MEQ/15 ML UDC 40 MEQ PO (09:54)
--- NOTE | 2023-07-27 09:59 | EKG12_ITS ---
Test Reason : arhythmia Blood Pressure : / mmHG Vent. Rate : 125 BPM Atrial Rate : 000 BPM P-R Int : 000 ms QRS Dur : 090 ms QT Int : 326 ms P-R-T Axes : 000 074 101 degrees QTc Int : 470 ms Atrial fibrillation with rapid ventricular response Nonspecific ST abnormality Abnormal ECG When compared with ECG of 24-JUL-2023 10:44, MANUAL COMPARISON REQUIRED, DATA IS UNCONFIRMED Confirmed by RADHA BERRY, WESLEY ([id number]), graphic editor ZUNILDA BLANCAS ([id number]) on 08/01/2023 10:14:20 AM Referred By: Rowe Confirmed By:WESLEY GARCIA MD
[2023-07-27] MEDS: Pantoprazole Sodium 40 MG in 0.9% Normal Saline (100mL MB+) 100 ML 330 MG IV ×2 (10:27→21:02)
[2023-07-27] MEDS: fentaNYL drip 100 ML 10 MCG CONT INF ×2 (10:36→20:36)
[2023-07-27] MEDS: levoFLOXacin IV 500 MG/100 ML BAG 100 MG IV (10:58)
--- NOTE | 2023-07-27 11:05 | EKG12_ITS ---
Test Reason : arhythmia Blood Pressure : / mmHG Vent. Rate : 106 BPM Atrial Rate : 106 BPM P-R Int : 152 ms QRS Dur : 094 ms QT Int : 304 ms P-R-T Axes : 083 076 083 degrees QTc Int : 403 ms Sinus rhythm with PAF Otherwise normal ECG When compared with ECG of 27-JUL-2023 11:05, MANUAL COMPARISON REQUIRED, DATA IS UNCONFIRMED Confirmed by RADHA BERRY, WESLEY ([id number]), restaurant expeditor ZUNILDA BLANCAS ([id number]) on 08/02/2023 6:03:02 AM Referred By: Rowe Confirmed By:WESLEY GARCIA MD
[2023-07-27] MEDS: OLANZapine 2.5 MG Tablet 5 MG PO (12:19)
[2023-07-27] MEDS: Dexmedetomidine 1,000 mcg in 0.9% NS 240 mL 19.5 MCG CONT INF (12:23)
[2023-07-27] MEDS: Midazolam 2 MG/2 ML Syringe IV ×2 (13:00→13:07)
--- NOTE | 2023-07-27 14:11 | OP.CCLET_ITS ---
07/27/2023 Isabel Rae Re : Upper GI endoscopy procedure for Val Sainz Dear Butch This procedure was performed on July. My impressions and recommendations are as follows: Impressions : - Normal esophagus. - Medium-sized hiatal hernia. - Normal second portion of the duodenum. - No specimens collected. Recommendations : - Return patient to ICU for ongoing care. - Resume previous diet. - Continue present medications. My findings are described in the full procedure note, which is enclosed. If I can be of further assistance, please feel free to contact me at . Sincerely, Paco Lucero, 07/27/2023 2:10:43 PM This report has been signed electronically.
--- NOTE | 2023-07-27 14:11 | OP.EGD_ITS ---
Patient Name: Val Sainz Procedure Date: 07/27/2023 12:52 PM Date of : 1960 Age: 62 Procedure: Upper GI endoscopy Indications: Iron deficiency anemia Providers: Paco Lucero DO Medicines: Monitored Anesthesia Care Patient Profile: This is a 62 year old female. Refer to note in patient chart for documentation of history and physical. Patient has symptoms of acute dyspepsia. Complications: No immediate complications. Procedure: Pre-Anesthesia Assessment: - Prior to the procedure, a History and Physical was performed, and patient medications and allergies were reviewed. The patient is competent. The risks and benefits of the procedure and the sedation options and risks were discussed with the patient. All questions were answered and informed consent was obtained. Patient identification and proposed procedure were verified by the physician in the pre-procedure area. Mental Status Examination: alert and oriented. Airway Examination: normal oropharyngeal airway and neck mobility. Respiratory Examination: clear to auscultation. CV Examination: normal. Prophylactic Antibiotics: The patient does not require prophylactic antibiotics. Prior Anticoagulants: The patient has taken no anticoagulant or antiplatelet agents. ASA Grade Assessment: IV - A patient with severe systemic disease that is a constant threat to life. After reviewing the risks and benefits, the patient was deemed in satisfactory condition to undergo the procedure. The anesthesia plan was to use moderate sedation / analgesia (conscious sedation). Immediately prior to administration of medications, the patient was re-assessed for adequacy to receive sedatives. The heart rate, respiratory rate, oxygen saturations, blood pressure, adequacy of pulmonary ventilation, and response to care were monitored throughout the procedure. The physical status of the patient was re-assessed after the procedure. After obtaining informed consent, the endoscope was passed under direct vision. Throughout the procedure, the patient's blood pressure, pulse, and oxygen saturations were monitored continuously. The Endoscope was introduced through the mouth, and advanced to the second part of duodenum. The upper GI endoscopy was accomplished without difficulty. The patient tolerated the procedure well. Scope In: 1:03:31 PM Scope Out: 1:09:39 PM Total Procedure Duration Time 0 hours 6 minutes 8 seconds Findings: The examined esophagus was normal. A medium-sized hiatal hernia was present. The second portion of the duodenum was normal. Impression: - Normal esophagus. - Medium-sized hiatal hernia. - Normal second portion of the duodenum. - No specimens collected. Recommendation: - Return patient to ICU for ongoing care. - Resume previous diet. - Continue present medications. Procedure Code(s): --- Professional --- 28680, Esophagogastroduodenoscopy, flexible, transoral; diagnostic, including collection of specimen(s) by brushing or washing, when performed (separate procedure) CPT copyright 2021 [employer]. All rights reserved. The codes documented in this report are preliminary and upon house sitter review may be revised to meet current compliance requirements. Paco Lucero DO 07/27/2023 2:10:43 PM This report has been signed electronically. Number of Addenda: 0 Note Initiated On: 07/27/2023 12:52 PM
--- NOTE | 2023-07-27 16:04 | PCM.PN.INT ---
Assessment & Plan Assessment/Plan (1) COPD with acute exacerbation: (2) Pulmonary cachexia due to COPD: (3) Acute on chronic respiratory failure with hypoxia and hypercapnia: (4) Stage 4 very severe COPD by GOLD classification: (5) Non-ischemic cardiomyopathy: PLAN: Plan RECOMMENDATIONS: 1. Plan for EGD today. We can wean to extubate tomorrow she is occasionally agitated despite sedation. Will start her on Zyprexa as she is on Levaquin increased risk of prolonged QTc. If she continues to fail we can consider a dose of Lasix 2. Continue Levaquin 3. Start tube feeds after EGD. 4. Continue bronchodilators, steroids and mucolytic 5. cont bowel regimen IMPRESSIONS: 1. Acute on chronic combined respiratory failure secondary to COPD exacerbation Patient with advanced lung disease at baseline with continued smoking and likely progression of disease. Viral panel was negative at this time. Infiltrates will be difficult to evaluate as patient has very little lung parenchyma. Patient did have a slightly elevated BNP, but it is unclear if this is related to strain related to hypoxia. Patient will be given a low-dose of diuretics. Patient did have a fever overnight. Will transition patient to Levaquin. Spontaneous breathing and awakening trials per protocol. Patient is on steroids and bronchodilators. 2. Elevated troponin/chronic systolic CHF Patient did have a slightly elevated troponin on presentation. It is unclear if this is secondary to global hypoxemia. Last EF was in June of last year showing 40% with mild global hypokinesis of the left ventricle. Repeat echocardiogram shows little change. Patient did not present with severe hypertension to suggest flash pulmonary edema. 3. Severe protein malnutrition Patient has significantly reduced BMI. Patient likely has an element of pulmonary cachexia. Patient is also showing signs of iron deficiency. Dietitian has been consulted. Okay to continue tube feeds from my perspective. 4. Tobacco abuse/hypertension/debility/anemia Complicates care, management, recovery and prognosis. Will need PT and OT to evaluate patient. Patient did have a significant drop in hemoglobin, but this may be slightly delusional as all cell counts are down. Patient does appear to have an element of iron deficiency. TIME: 34 minutes critical care time spent addressing patient's respiratory failure, elevated troponin, malnutrition, review of all data and collaboration with care team Subjective Subjective No acute events. She underwent EGD today which was negative for acute process. Objective Data Objective Data Vital Signs: Vital Signs Temp Pulse Resp BP Pulse Ox O2 Del Method O2 Flow Rate 37.4 C H 92 17 109/73 91 Mechanical Ventilator 35 07/27/23 14:00 07/27/23 14:53 07/27/23 14:53 07/27/23 14:00 07/27/23 14:53 07/27/23 14:00 07/25/23 04:10 FiO2 30 07/27/23 14:53 Oxygen Flow Rate (L/min) 35 Oxygen Delivery Method Mechanical Ventilator Weight: 52 kg Body Mass Index (BMI) 17.9 Intake & Output: Intake and Output for Last 24 Hours 07/25/23 07/26/23 07/27/23 23:59 23:59 23:59 Intake Total 2406.70 / 2514.60 2483.07 / 2522.27 1829.93 / 1829.93 Output Total 1075 / 1325 2250 / 2250 2250 / 2250 Balance 1331.70 / 1189.60 233.07 / 272.27 -420.07 / -420.07 Lab / Micro Data 07/27/23 03:05 07/27/23 03:05 Labs: Laboratory Results - last 24 hr 07/26/23 18:05: Urine Test Negative 07/27/23 03:05: WBC 5.7, RBC 3.21 L, Hgb 7.8 L, Hct 26.9 L, MCV 83.8, MCH 24.3 L, MCHC 29.0 L, RDW Std Deviation 47.5 H, RDW Coeff of Sami 15.6 H, Plt Count 177, MPV 11.7, Immature Gran % (Auto) 0.500, Neut % (Auto) 89.9 H, Lymph % (Auto) 4.1 L, [place] % (Auto) 5.5, Eos % (Auto) 0.0, Baso % (Auto) 0.0, Absolute Neuts (auto) 5.1, Absolute Lymphs (auto) 0.23 L, Nucleated RBC % 0, Differential Comment SCANNED, Sodium 141, Potassium 3.5, Chloride 104, Carbon Dioxide 31.0, Anion Gap 6, BUN 17, Creatinine 0.34 L, Estim Creat Clear Calc 131.42, Est GFR (MDRD) Af Amer 245, Est GFR (MDRD) Non-Af 203, BUN/Creatinine Ratio 49.4 H, Glucose 142 H, Calcium 8.5, Total Bilirubin 0.20, AST 18, ALT 17, Alkaline Phosphatase 46, Total Protein 5.6 L, Albumin 2.7 L, Globulin 2.9, Albumin/Globulin Ratio 0.9 Micro: Microbiology 07/24/23 18:17 Blood Culture (Wb) - Anticubital Right Blood Culture - Preliminary No growth in 48 hours. 07/24/23 12:55 Sputum, Induced/Lukens Gram Stain - Final 07/24/23 12:55 Sputum, Induced/Lukens Respiratory Culture - Final Proteus mirabilis Staphylococcus aureus 07/24/23 11:17 Blood Culture (Wb) #2 - Anticubital Left Blood Culture - Preliminary No growth in 48 hours. 07/24/23 10:35 Blood Culture (Wb) - No Site/Description Given Blood Culture - Preliminary No growth in 48 hours. 07/24/23 13:05 Urine Catheter - Lundberg Urine Culture - Final Proteus mirabilis 07/24/23 13:05 Urine Catheter - [place]berg Legionella Antigen - Final 07/24/23 13:05 Urine Catheter - [facility]berg Streptococcus pneumoniae Antigen (M - Final 07/24/23 15:55 Mucosa - Nasopharyngeal Respiratory Panel (PCR) - Final 07/24/23 10:55 Nasal Secretion SARS-CoV-2 & FLU Antigen (Rapid) - Final 07/24/23 10:55 Mucosa - Nasopharyngeal RSV RNA Qualitative (PCR) - Final 07/24/23 11:00 Stool Stool Occult Blood (CAROLYNE) - Final Physical Exam Const Constitutional Narrative: Intubated and sedated. RASS +1. Good vent synchrony. General Appearance: patient mechanically ventilated HEENT normocephalic and head/scalp atraumatic Eyes PERRL, conjunctivae normal and no scleral icterus Neck full ROM Chest Chest: abnormal inspection of the chest increased A-P diameter Resp Effort and Inspection: tachypneic Auscultation: wheezes and diminished lung sounds diffuse (Severely); Negative for rales or rhonchi Cardio regular rate, regular rhythm, S1 normal heart sound, S2 normal heart sound, no murmurs, no rub and no gallops Rate: tachycardic GI normal to inspection, nondistended, normoactive bowel sounds Extremity General Extremity: clubbing; Negative for edema Skin no rashes or lesions noted Neuro Sensorium / Orientation: sedated on vent Psych Activity / Motor Behavior: restless Mood & Affect: anxious and flat affect Charges/Coding Procedures Hospitalists Procedures: 12724 Critical Care 1st Hr
[2023-07-28] VITALS (36 sets, daily range): BP systolic 77–153; BP diastolic 45–106; PULSE 69–170; RESP 14–18; TEMP 36.8–38.3; O2SAT 90–100; BMI 18.1
[2023-07-28] MEDS: Vital AF 1.2 Cal Liquid 1,000 ML 50 ML GT ×2 (00:03→21:43)
[2023-07-28] MEDS: guaiFENesin 10 ML UDC (200MG/10ML) NG ×7 (00:03→23:59)
[2023-07-28] MEDS: Dexmedetomidine 1,000 mcg in 0.9% NS 240 mL 19.5 MCG CONT INF ×2 (01:00→15:00)
[2023-07-28 04:58] LABS: Absolute Lymphocyte Count 0.48 X10^3/uL (0.83-4.51); Absolute Neutrophil Count 5.5 X10^3/uL (2.0-7.7); Basophil# 0.01 X10^3/uL; Basophil% 0.2 % (0-1); Hematocrit 26.8 % (37-47); Hemoglobin 8.1 g/dL (12.0-15.0); Lymphocyte # 0.48 X10^3/ul (0.83-4.51); Lymphocyte % 7.3 % (19-41); Mean Corp Hgb Conc 30.2 g/dL (32-36); Mean Corpuscular Volume 82.7 fL (81-99); Mean Platelet Vol. 12.1 fl (6.2-12.0); Monocyte# 0.55 X10^3/uL; Monocyte% 8.3 % (0-10); NRBC Flagged by Analyzer 0 % (0-5); Neutrophil # 5.53 X10^3/uL (2.7-7.7); Neutrophil % 83.4 % (47-70); POSITIVE DIFFERENTIAL YES; Platelet Count 194 K/mm3 (150-450); RBC Distribution Width CV 15.9 % (11.6-14.6); RBC Distribution Width SD 48.7 fl (35.1-43.9); Red Blood Count 3.24 M/mm3 (4.2-5.4); White Blood Count 6.6 K/mm3 (4.4-11.0)
[2023-07-28 05:10] LABS: Ionized Calcium 4.76 mg/dL (4.36-5.20)
[2023-07-28 05:20] LABS: Anion Gap 4 (5-15); BUN 18 mg/dL (7-18); BUN/Creat Ratio 54.2 RATIO (10-20); Calcium,Total 8.1 mg/dL (8.5-10.1); Chloride 104 mmol/L (98-107); Creatinine, Serum 0.33 mg/dL (0.55-1.02); Differential Indicated SCAN CRITERIA MET; EST Glomerular Filtration Rate 211 mL/min (>60); Est Glom Filt Rate - Afr Amer 256 mL/min (>60); Estimated Creatinine Clearance 143.28 ml/min; Glucose 132 mg/dL (74-106); Magnesium 2.2 mg/dL (1.6-2.6); Phosphorus 2.2 mg/dL (2.5-4.9); Potassium 3.7 mmol/L (3.5-5.1); Sodium Level 139 mmol/L (136-145)
--- NOTE | 2023-07-28 07:05 | EKG12_ITS ---
Test Reason : Blood Pressure : / mmHG Vent. Rate : 084 BPM Atrial Rate : 084 BPM P-R Int : 146 ms QRS Dur : 084 ms QT Int : 366 ms P-R-T Axes : 094 083 084 degrees QTc Int : 432 ms Sinus rhythm with Premature atrial complexes in a pattern of bigeminy Otherwise normal ECG When compared with ECG of 24-JUL-2023 10:44, Premature atrial complexes are now Present Vent. rate has decreased BY 47 BPM Confirmed by WESLEY GARCIA MD ([id number]), film editor supervisor ZUNILDA BLANCAS ([id number]) on 08/02/2023 6:02:55 AM Referred By: Bladimir Confirmed By:WESLEY GARCIA MD
[2023-07-28] MEDS: Propofol 10MG/Ml 1,000 MG/100 ML Bottle 12.5 MG CONT INF ×3 (07:16→15:00)
[2023-07-28 07:19] LABS: Differential Comment SCANNED
[2023-07-28] MEDS: Potassium Phosphate 30 MM in 0.9% Normal Saline (250mL Bag) 250 ML 42 MM IV (08:03)
[2023-07-28] MEDS: Polyethylene Glycol 3350 17 GM PACKET GT (08:04)
[2023-07-28] MEDS: Metoprolol Tartrate 25 MG Tablet GT (08:04)
[2023-07-28] MEDS: CHLORHEXIDINE GLUC 2% CLOTH 1 EACH TOWELETTE TOPICAL (08:04)
[2023-07-28] MEDS: Senna/Docusate Sodium 1 Tablet 2 TABLET GT ×2 (08:08→21:11)
[2023-07-28] MEDS: 0.9% Saline Lock 10 ML Syringe IV (08:16)
[2023-07-28] MEDS: Chlorhexidine 15 ML PO ×2 (08:19→21:09)
[2023-07-28] MEDS: Pantoprazole Sodium 40 MG in 0.9% Normal Saline (100mL MB+) 100 ML 330 MG IV (08:22)
--- NOTE | 2023-07-28 08:29 | PN.HOSP_ITS ---
Reason for Visit Reason for Visit: Shortness of breath Subjective Subjective Patient with some intermittent SVT overnight and this morning. Not on breathing trial at that time. No other's issues overnight. Has not performed breathing trial yet today due to elevated heart rates earlier this morning. Objective Data Objective Data Vital Signs: Vital Signs Temp Pulse Resp BP Pulse Ox O2 Del Method O2 Flow Rate 99.6 F H 148 H 16 153/106 H 94 Mechanical Ventilator 35 07/28/23 07:00 07/28/23 08:04 07/28/23 07:07 07/28/23 07:00 07/28/23 07:07 07/28/23 07:00 07/25/23 04:10 FiO2 35 07/28/23 07:07 Oxygen Flow Rate (L/min) 35 Oxygen Delivery Method Mechanical Ventilator Weight: 52.7 kg Body Mass Index (BMI) 18.1 Intake & Output: Intake and Output for Last 24 Hours 07/26/23 07/27/23 07/28/23 23:59 23:59 23:59 Intake Total 2483.07 / 2522.27 2467.72 / 2589.72 1270.59 / 1270.59 Output Total 2250 / 2250 3050 / 3450 850 / 850 Balance 233.07 / 272.27 -582.28 / -860.28 420.59 / 420.59 Lab / Micro Data 07/28/23 04:45 07/28/23 04:45 Labs: Laboratory Results - last 24 hr 07/28/23 04:45: WBC 6.6, RBC 3.24 L, Hgb 8.1 L, Hct 26.8 L, MCV 82.7, MCH 25.0 L , MCHC 30.2 L, RDW Std Deviation 48.7 H, RDW Coeff of Sami 15.9 H, Plt Count 194, MPV 12.1 H, Immature Gran % (Auto) 0.800, Neut % (Auto) 83.4 H, Lymph % (Auto) 7.3 L, [place] % (Auto) 8.3, Eos % (Auto) 0.0, Baso % (Auto) 0.2, Absolute Neuts (auto) 5.5, Absolute Lymphs (auto) 0.48 L, Nucleated RBC % 0, Differential Comment SCANNED, Sodium 139, Potassium 3.7, Chloride 104, Carbon Dioxide 31.0, Anion Gap 4 L, BUN 18, Creatinine 0.33 L, Estim Creat Clear Calc 143.28, Est GFR (MDRD) Af Amer 256, Est GFR (MDRD) Non-Af 211, BUN/Creatinine Ratio 54.2 H, Glucose 132 H, Calcium 8.1 L, Phosphorus 2.2 L, Magnesium 2.2 07/28/23 05:06: Ionized Calcium 4.76 Micro: Microbiology 07/24/23 18:17 Blood Culture (Wb) - Anticubital Right Blood Culture - Preliminary No growth in 48 hours. 07/24/23 12:55 Sputum, Induced/Lukens Gram Stain - Final 07/24/23 12:55 Sputum, Induced/Lukens Respiratory Culture - Final Proteus mirabilis Staphylococcus aureus 07/24/23 11:17 Blood Culture (Wb) #2 - Anticubital Left Blood Culture - Preliminary No growth in 48 hours. 07/24/23 10:35 Blood Culture (Wb) - No Site/Description Given Blood Culture - Preliminary No growth in 48 hours. 07/24/23 13:05 Urine Catheter - Lundberg Urine Culture - Final Proteus mirabilis 07/24/23 13:05 Urine Catheter - Lundberg Legionella Antigen - Final 07/24/23 13:05 Urine Catheter - Lundberg Streptococcus pneumoniae Antigen (M - Final 07/24/23 15:55 Mucosa - Nasopharyngeal Respiratory Panel (PCR) - Final 07/24/23 10:55 Nasal Secretion SARS-CoV-2 & FLU Antigen (Rapid) - Final 07/24/23 10:55 Mucosa - Nasopharyngeal RSV RNA Qualitative (PCR) - Final 07/24/23 11:00 Stool Stool Occult Blood (CAROLYNE) - Final Physical Exam Const alert; Negative for oriented x3, no apparent distress, average body habitus, healthy appearing or well nourished Constitutional Narrative: Intubated, upper middle-aged, severely cachectic white female who appears much older than stated age, lying in bed sleeping General Appearance: uncooperative Orientation / Consciousness: confused, disoriented and lethargic HEENT normocephalic and head/scalp atraumatic HEENT Narrative: ET tube in place, OG in place Resp normal respiratory effort, no retractions, no use of accessory muscles and No clear to auscultation bilaterally Resp Narrative: Currently intubated, diminished but clear Auscultation: Negative for rales, rhonchi or wheezes Cardio S1 normal heart sound, S2 normal heart sound, no murmurs, no rub, no gallops and no clicks Cardio Narrative: Irregular and mildly tachycardic GI normal to inspection, nondistended, normoactive bowel sounds, soft to palpation and non-tender GI Narrative: Markedly scaphoid abdomen Extremity Extremity Narrative: No edema, severely diminished lean muscle mass, no cyanosis, clubbing is present Neuro No oriented x3 and moves all extremities Neuro Narrative: Spontaneously moves all 4 extremities Speech: Negative for speech normal Psych Psych Narrative: Unable to assess Assessment & Plan Assessment/Plan (1) Elevated brain natriuretic peptide (BNP) level: (2) Stage 4 very severe COPD by GOLD classification: (3) Elevated troponin I level: (4) Severe malnutrition: (5) Pulmonary cachexia due to COPD: (6) Respiratory acidosis: (7) Acute anemia: (8) Hypotension: (9) Staphylococcus aureus pneumonia: (10) Proteus pneumonia: PLAN: Plan Acute on chronic hypoxic and hypercapnic respiratory failure secondary to acute exacerbation of COPD/Staph aureus and Proteus pneumonia -Placed on BiPAP on presentation however pH did not improve after 2 hours on BiPAP and therefore we intubated her for persistent hypercapnia and somnolence -Intubated 07/23/2023 -Patient remains on mechanical ventilation with an FiO2 of 35% -Has not been doing well on breathing trials becoming tachycardic and tachypneic -At baseline patient uses 2.5 L with exertion only -Sputum cultures are positive for Proteus and Staph aureus (MSSA) -Continue Solu-Medrol 40 every 8 -Aggressive pulmonary toilet -Continue ceftriaxone 2 g daily to complete treatment for pneumonia day 5 of 7 -Continue azithromycin for anti-inflammatory purposes -Repeat Lasix 40 mg again today -Pulmonary medicine following-discussed with Dr. Enamorado Acute on chronic respiratory acidosis -Acute on Chronic -2 appears to be between 55 and 65 -Treatment as above Troponin elevation -Type II NSTEMI secondary to acute respiratory failure as noted above -Echocardiogram shows an EF of 40 to 45% and diffuse mitral valve thickening which is stable compared to previous -No acute ischemia noted on EKG Acute on chronic anemia -Hemoglobin is stabilized at 7.8 -Guaiac on admission was negative but will repeat -Hemoglobin drop may be dilutional with fluids given for sepsis -No identifiable bleeding on EGD so we will restart Eliquis and monitor counts -Iron studies are somewhat suggestive of iron deficiency -IV iron doses completed -No obvious signs of acute blood loss -Will monitor -GI following-appreciate input PAF -Patient has history of paroxysmal atrial fibrillation that especially worsens when she is in respiratory distress as anticipated -Patient has had some tachycardia that appears to be atrial fibrillation and possible MAT -If persistent may need some amiodarone -Increased metoprolol to 50 mg p.o. twice daily -Does not appear to be on rate controlling medications at baseline -Restart home apixaban HFrEF-nonischemic cardiomyopathy -Last echocardiogram from 07/10/2022 shows an EF of 40% with mild global hy pokinesis of the LV and mild to moderate mitral valve insufficiency -Echocardiogram stable with an EF of 40 to 45% with moderate mitral valve insufficiency -Hold home lisinopril -Increase metoprolol to 50 twice daily -Would recommend outpatient cardiology follow-up with outpatient noninvasive stress testing after stabilized clinically if echo shows no wall motion abnormality Severe malnutrition -Likely related to pulmonary cachexia -Continue tube feed and advance as able -Dietitian following -BMI is 18 -Supplements to be added once respiratory status is stable and patient is able to take a p.o. diet COPD Gold stage IV -Baseline FEV1 was 25% predicted -Wears 2.5 L of oxygen at baseline -Continue supplemental oxygen as noted -Hold inhalers -Pulmonary toilet as above -Follows with Dr. Enamorado as an outpatient -Still smoking -A questionable whether or not patient will be extubated due to the severity of her lung disease at baseline and this has been discussed previously with the patient with the result of her always wanting to be intubated as she was on admission Hypertension -Hold home lisinopril -Increase metoprolol to 50 mg p.o. twice daily -As needed hydralazine Tobacco abuse -Patient with ongoing tobacco abuse -Recommend cessation Depression -Patient is no longer taking anything for this DVT prophylaxis -Restart apixaban CODE STATUS -Full code is reviewed with the prior to leaving the emergency department by the emergency department physician -Overall prognosis is extremely poor and with the severity of her lung disease she will likely be very difficult to extubate Charges/Coding Visit Charges Inpatient E&M: 80780 Subs Hosp L2
[2023-07-28] MEDS: levoFLOXacin IV 500 MG/100 ML BAG 100 MG IV (09:29)
[2023-07-28] MEDS: Furosemide 40 MG/4 ML Vial IV (09:29)
[2023-07-28] MEDS: Ipratropium/Albuterol Sulfate 3 ML AMPUL.NEB INHALATION ×3 (10:05→19:25)
[2023-07-28] MEDS: APIXABAN 5 MG TABLET GT ×2 (10:31→21:11)
[2023-07-28] MEDS: Sodium Ferric Gluconat 250 MG in 0.9% Normal Saline 250 ML 135 MG IV (10:31)
[2023-07-28] MEDS: fentaNYL drip 100 ML 15 MCG CONT INF (10:38)
[2023-07-28] MEDS: OLANZapine 2.5 MG Tablet PO ×2 (11:04→21:11)
--- NOTE | 2023-07-28 15:50 | PN.CC_ITS ---
Assessment & Plan Assessment/Plan (1) COPD with acute exacerbation: (2) Pulmonary cachexia due to COPD: (3) Acute on chronic respiratory failure with hypoxia and hypercapnia: (4) Stage 4 very severe COPD by GOLD classification: (5) Non-ischemic cardiomyopathy: PLAN: Plan RECOMMENDATIONS: 1. Patient failed her SBT and went into SVT. Given her severe COPD and low EF and continuous smoking habits she is at high risk for requiring long-term ventilation. Meanwhile we will start diuresis in the attempts to optimize her for another breathing trial tomorrow. Will also increase Zyprexa given her continuous agitation. 2. Continue Levaquin 3. He was negative for GI bleed. She will be started on Eliquis. Tolerating tube feeds 4. Continue bronchodilators, steroids and mucolytic 5. cont bowel regimen IMPRESSIONS: 1. Acute on chronic combined respiratory failure secondary to COPD exacerbation Patient with advanced lung disease at baseline with continued smoking and likely progression of disease. Viral panel was negative at this time. Infiltrates will be difficult to evaluate as patient has very little lung parenchyma. Patient did have a slightly elevated BNP, but it is unclear if this is related to strain related to hypoxia. Patient will be given a low-dose of diuretics. Patient did have a fever overnight. Will transition patient to Levaquin. Spontaneous breathing and awakening trials per protocol. Patient is on steroids and bronchodilators. 2. Elevated troponin/chronic systolic CHF Patient did have a slightly elevated troponin on presentation. It is unc lear if this is secondary to global hypoxemia. Last EF was in June of last year showing 40% with mild global hypokinesis of the left ventricle. Repeat echocardiogram shows little change. Patient did not present with severe hypertension to suggest flash pulmonary edema. 3. Severe protein malnutrition Patient has significantly reduced BMI. Patient likely has an element of pulmonary cachexia. Patient is also showing signs of iron deficiency. Dietitian has been consulted. Okay to continue tube feeds from my perspective. 4. Tobacco abuse/hypertension/debility/anemia Complicates care, management, recovery and prognosis. Will need PT and OT to evaluate patient. Patient did have a significant drop in hemoglobin, but this may be slightly delusional as all cell counts are down. Patient does appear to have an element of iron deficiency. TIME: 36 minutes critical care time spent addressing patient's respiratory failure, elevated troponin, malnutrition, review of all data and collaboration with care team Subjective Subjective Patient went into SVT during her SVT and failed. She is intermittently agitated Objective Data Objective Data Vital Signs: Vital Signs Temp Pulse Resp BP Pulse Ox O2 Del Method O2 Flow Rate 37.6 C H 83 18 90/57 L 93 Mechanical Ventilator 35 07/28/23 12:00 07/28/23 15:05 07/28/23 15:05 07/28/23 12:00 07/28/23 12:59 07/28/23 12:00 07/25/23 04:10 FiO2 30 07/28/23 12:59 Oxygen Flow Rate (L/min) 35 Oxygen Delivery Method Mechanical Ventilator Weight: 52.7 kg Body Mass Index (BMI) 18.1 Intake & Output: Intake and Output for Last 24 Hours 07/26/23 07/27/23 07/28/23 23:59 23:59 23:59 Intake Total 2483.07 / 2522.27 2467.72 / 2589.72 2460.53 / 2460.53 Output Total 2250 / 2250 3050 / 3450 2600 / 2600 Balance 233.07 / 272.27 -582.28 / -860.28 -139.47 / -139.47 Lab / Micro Data 07/28/23 04:45 07/28/23 04:45 Labs: Laboratory Results - last 24 hr 07/28/23 04:45: WBC 6.6, RBC 3.24 L, Hgb 8.1 L, Hct 26.8 L, MCV 82.7, MCH 25.0 L , MCHC 30.2 L, RDW Std Deviation 48.7 H, RDW Coeff of Sami 15.9 H, Plt Count 194, MPV 12.1 H, Immature Gran % (Auto) 0.800, Neut % (Auto) 83.4 H, Lymph % (Auto) 7.3 L, [place] % (Auto) 8.3, Eos % (Auto) 0.0, Baso % (Auto) 0.2, Absolute Neuts (auto) 5.5, Absolute Lymphs (auto) 0.48 L, Nucleated RBC % 0, Differential Comment SCANNED, Sodium 139, Potassium 3.7, Chloride 104, Carbon Dioxide 31.0, Anion Gap 4 L, BUN 18, Creatinine 0.33 L, Estim Creat Clear Calc 143.28, Est GFR (MDRD) Af Amer 256, Est GFR (MDRD) Non-Af 211, BUN/Creatinine Ratio 54.2 H, Glucose 132 H, Calcium 8.1 L, Phosphorus 2.2 L, Magnesium 2.2 07/28/23 05:06: Ionized Calcium 4.76 Micro: Microbiology 07/24/23 18:17 Blood Culture (Wb) - Anticubital Right Blood Culture - Preliminary No growth in 48 hours. 07/24/23 12:55 Sputum, Induced/Lukens Gram Stain - Final 07/24/23 12:55 Sputum, Induced/Lukens Respiratory Culture - Final Proteus mirabilis Staphylococcus aureus 07/24/23 11:17 Blood Culture (Wb) #2 - Anticubital Left Blood Culture - Preliminary No growth in 48 hours. 07/24/23 10:35 Blood Culture (Wb) - No Site/Description Given Blood Culture - Preliminary No growth in 48 hours. 07/24/23 13:05 Urine Catheter - Lundberg Urine Culture - Final Proteus mirabilis 07/24/23 13:05 Urine Catheter - Lundberg Legionella Antigen - Final 07/24/23 13:05 Urine Catheter - [facility]berg Streptococcus pneumoniae Antigen (M - Final 07/24/23 15:55 Mucosa - Nasopharyngeal Respiratory Panel (PCR) - Final 07/24/23 10:55 Nasal Secretion SARS-CoV-2 & FLU Antigen (Rapid) - Final 07/24/23 10:55 Mucosa - Nasopharyngeal RSV RNA Qualitative (PCR) - Final 07/24/23 11:00 Stool Stool Occult Blood (CAROLYNE) - Final Physical Exam Const Constitutional Narrative: Intubated and sedated. RASS +1. Good vent synchrony. General Appearance: patient mechanically ventilated Resp Effort and Inspection: tachypneic Auscultation: diminished lung sounds diffuse (Severely) Cardio regular rate, S1 normal heart sound and S2 normal heart sound GI normal to inspection, nondistended, normoactive bowel sounds Extremity General Extremity: Negative for edema Neuro Sensorium / Orientation: sedated on vent Charges/Coding Procedures Hospitalists Procedures: 02176 Critical Care 1st Hr
--- NOTE | 2023-07-28 15:56 | PN.GI_ITS ---
Subjective Subjective Patient is still intubated and sedated. She underwent EGD yesterday while sedated on the vent. No clear etiology was seen to patient's acute on chronic anemia. Objective Data Objective Data Vital Signs: Vital Signs Temp Pulse Resp BP Pulse Ox O2 Del Method O2 Flow Rate 99.7 F H 83 18 90/57 L 93 Mechanical Ventilator 35 07/28/23 12:00 07/28/23 15:05 07/28/23 15:05 07/28/23 12:00 07/28/23 12:59 07/28/23 12:00 07/25/23 04:10 FiO2 30 07/28/23 12:59 Oxygen Flow Rate (L/min) 35 Oxygen Delivery Method Mechanical Ventilator Weight: 116 lb 2.938 oz Body Mass Index (BMI) 18.1 Intake & Output: Intake and Output for Last 24 Hours 07/26/23 07/27/23 07/28/23 23:59 23:59 23:59 Intake Total 2483.07 / 2522.27 2467.72 / 2589.72 2460.53 / 2460.53 Output Total 2250 / 2250 3050 / 3450 2600 / 2600 Balance 233.07 / 272.27 -582.28 / -860.28 -139.47 / -139.47 Lab / Micro Data 07/28/23 04:45 07/28/23 04:45 Labs: Laboratory Results - last 24 hr 07/28/23 04:45: WBC 6.6, RBC 3.24 L, Hgb 8.1 L, Hct 26.8 L, MCV 82.7, MCH 25.0 L , MCHC 30.2 L, RDW Std Deviation 48.7 H, RDW Coeff of Sami 15.9 H, Plt Count 194, MPV 12.1 H, Immature Gran % (Auto) 0.800, Neut % (Auto) 83.4 H, Lymph % (Auto) 7.3 L, [place] % (Auto) 8.3, Eos % (Auto) 0.0, Baso % (Auto) 0.2, Absolute Neuts (auto) 5.5, Absolute Lymphs (auto) 0.48 L, Nucleated RBC % 0, Differential Comment SCANNED, Sodium 139, Potassium 3.7, Chloride 104, Carbon Dioxide 31.0, Anion Gap 4 L, BUN 18, Creatinine 0.33 L, Estim Creat Clear Calc 143.28, Est GFR (MDRD) Af Amer 256, Est GFR (MDRD) Non-Af 211, BUN/Creatinine Ratio 54.2 H, Glucose 132 H, Calcium 8.1 L, Phosphorus 2.2 L, Magnesium 2.2 07/28/23 05:06: Ionized Calcium 4.76 Micro: Microbiology 07/24/23 18:17 Blood Culture (Wb) - Anticubital Right Blood Culture - Preliminary No growth in 48 hours. 07/24/23 12:55 Sputum, Induced/Lukens Gram Stain - Final 07/24/23 12:55 Sputum, Induced/Lukens Respiratory Culture - Final Proteus mirabilis Staphylococcus aureus 07/24/23 11:17 Blood Culture (Wb) #2 - Anticubital Left Blood Culture - P reliminary No growth in 48 hours. 07/24/23 10:35 Blood Culture (Wb) - No Site/Description Given Blood Culture - Preliminary No growth in 48 hours. 07/24/23 13:05 Urine Catheter - Lundberg Urine Culture - Final Proteus mirabilis 07/24/23 13:05 Urine Catheter - Lundberg Legionella Antigen - Final 07/24/23 13:05 Urine Catheter - [place]berg Streptococcus pneumoniae Antigen (M - Final 07/24/23 15:55 Mucosa - Nasopharyngeal Respiratory Panel (PCR) - Final 07/24/23 10:55 Nasal Secretion SARS-CoV-2 & FLU Antigen (Rapid) - Final 07/24/23 10:55 Mucosa - Nasopharyngeal RSV RNA Qualitative (PCR) - Final 07/24/23 11:00 Stool Stool Occult Blood (CAROLYNE) - Final Physical Exam Const alert; Negative for oriented x3, no apparent distress, average body habitus, healthy appearing or well nourished Constitutional Narrative: Intubated, General Appearance: uncooperative Orientation / Consciousness: confused, disoriented and lethargic HEENT normocephalic and head/scalp atraumatic HEENT Narrative: ET tube in place, OG in place Resp normal respiratory effort, no retractions, no use of accessory muscles and No clear to auscultation bilaterally Resp Narrative: Currently intubated, diminished but clear Auscultation: Negative for rales, rhonchi or wheezes Cardio S1 normal heart sound, S2 normal heart sound, no murmurs, no rub, no gallops and no clicks Cardio Narrative: Irregular and mildly tachycardic GI normal to inspection, nondistended, normoactive bowel sounds, soft to palpation and non-tender GI Narrative: Markedly scaphoid abdomen Extremity Extremity Narrative: No edema, severely diminished lean muscle mass, no cyanosis, clubbing is present Neuro No oriented x3 and moves all extremities Neuro Narrative: Spontaneously moves all 4 extremities Speech: Negative for speech normal Psych Psych Narrative: Unable to assess Assessment & Plan Assessment/Plan (1) COPD with acute exacerbation: (2) Pulmonary cachexia due to COPD: (3) Acute on chronic respiratory failure with hypoxia and hypercapnia: (4) Stage 4 very severe COPD by GOLD classification: (5) Non-ischemic cardiomyopathy: (6) Respiratory acidosis: (7) Acute anemia: (8) Hypotension: PLAN: Plan Acute on chronic respiratory failure with hypoxia and hypercapnia currently intubated and on tube feedings. -Anemia: No identifiable source of GI blood loss on upper endoscopy. When stable from a respiratory status she should have a colonoscopy. If her hemoglobin trends back down then we will need to do it sooner than later. Okay to restart Lizzeth now. Monitor H&H. Charges/Coding Visit Charges Inpatient E&M: 14204 Subs Hosp L3
[2023-07-28] MEDS: fentaNYL drip 100 ML 20 MCG CONT INF ×2 (16:23→21:24)
[2023-07-28] MEDS: Furosemide 20 MG/2 ML VIAL IV (19:17)
[2023-07-28] MEDS: Acetaminophen 650 MG/20 ML UDC GT (21:08)
[2023-07-28] MEDS: Metoprolol Tartrate 50 MG Tablet GT (21:10)
[2023-07-29] VITALS (35 sets, daily range): BP systolic 85–146; BP diastolic 51–84; PULSE 77–114; RESP 16–20; TEMP 37.8–38.3; O2SAT 90–96; BMI 18.1
[2023-07-29] MEDS: fentaNYL drip 100 ML 20 MCG CONT INF ×4 (02:24→20:00)
[2023-07-29] MEDS: Propofol 10MG/Ml 1,000 MG/100 ML Bottle 3.10000000000000009 MG CONT INF ×2 (02:52→20:19)
[2023-07-29] MEDS: Magnesium Sulfate 1 GM, 0.9% Normal Saline (Pres. free 8 ML in Syringe 0 EACH IV (03:36)
[2023-07-29] MEDS: Dexmedetomidine 1,000 mcg in 0.9% NS 240 mL 19.5 MCG CONT INF ×2 (03:42→16:56)
[2023-07-29] MEDS: guaiFENesin 10 ML UDC (200MG/10ML) NG ×5 (05:02→20:37)
[2023-07-29] MEDS: Acetaminophen 650 MG/20 ML UDC GT ×2 (05:04→22:38)
[2023-07-29 05:08] LABS: Absolute Lymphocyte Count 0.52 X10^3/uL (0.83-4.51); Absolute Neutrophil Count 9.5 X10^3/uL (2.0-7.7); Basophil# 0.01 X10^3/uL; Basophil% 0.1 % (0-1); Hematocrit 27.4 % (37-47); Lymphocyte # 0.52 X10^3/ul (0.83-4.51); Lymphocyte % 4.7 % (19-41); Mean Corp Hgb Conc 29.2 g/dL (32-36); Mean Corpuscular Hgb 24.6 pg (27.0-32.0); Mean Corpuscular Volume 84.3 fL (81-99); Mean Platelet Vol. 11.3 fl (6.2-12.0); Monocyte# 0.86 X10^3/uL; Monocyte% 7.8 % (0-10); NRBC Flagged by Analyzer 0 % (0-5); Neutrophil % 86.6 % (47-70); POSITIVE DIFFERENTIAL YES; Platelet Count 201 K/mm3 (150-450); RBC Distribution Width CV 16.4 % (11.6-14.6); RBC Distribution Width SD 49.8 fl (35.1-43.9); Red Blood Count 3.25 M/mm3 (4.2-5.4)
[2023-07-29 05:21] LABS: Anion Gap 5 (5-15); BUN 29 mg/dL (7-18); BUN/Creat Ratio 71.1 RATIO (10-20); Calcium,Total 8.2 mg/dL (8.5-10.1); Chloride 106 mmol/L (98-107); Creatinine, Serum 0.41 mg/dL (0.55-1.02); EST Glomerular Filtration Rate 167 mL/min (>60); Est Glom Filt Rate - Afr Amer 202 mL/min (>60); Estimated Creatinine Clearance 115.33 ml/min; Glucose 154 mg/dL (74-106); Magnesium 2.7 mg/dL (1.6-2.6); Potassium 4.1 mmol/L (3.5-5.1); Sodium Level 142 mmol/L (136-145); Triglycerides 84 mg/dL
[2023-07-29 05:35] LABS: Differential Indicated SCAN CRITERIA MET
[2023-07-29 05:43] LABS: Differential Comment SCANNED
[2023-07-29] MEDS: Ipratropium/Albuterol Sulfate 3 ML AMPUL.NEB INHALATION ×4 (06:57→18:55)
[2023-07-29 08:18] LABS: Bacteria 0 SEEN /hpf (None Seen); Mucous, Urine 0 SEEN /hpf (<or=2+)
[2023-07-29] MEDS: Vancomycin HCl 1,250 MG in 0.9% Normal Saline (250mL Bag) 250 ML 167 MG IV (08:19)
[2023-07-29 08:22] LABS: Color, Urine Yellow (Yellow); Glucose, Dipstick Normal (Normal); Ketone-Dipstick Negative (Negative); Leukocyte Esterase-Dipstick 100 /ul (Negative); Nitrite-Dipstick Negative (Negative); Occult Blood-Urine 150 /ul (Negative); Protein-Dipstick 30 mg/dl (Negative); Urine Bilirubin Dipstick Negative (Negative); Urine Clarity Clear (Clear); Urine Urobilinogen Normal (Normal)
[2023-07-29 08:25] LABS: Red Blood Cells-Urine 0-5 SEEN /hpf (0-5); Squamous Epithelial Cells - UA 5-10 SEEN /hpf (5-10); White Blood Cells 0-5 SEEN /hpf (0-5)
[2023-07-29 09:41] LABS: M R Staph aureus DNA By PCR Negative (Negative); Probe Check PASS; Specimen Processing Control PASS
--- NOTE | 2023-07-29 09:44 | PCM.PN.HOSP ---
Reason for Visit Reason for Visit: Shortness of breath Subjective Subjective Patient with intermittent A-fib through the night. Currently in sinus rhythm again. Patient did poorly on her spontaneous breathing trial and had significant tachycardia and tachypneic while on her trial so it was discontinued for this. The patient is wide-awake and able to interact appropriately shaking her head yes and no and pointing of the things despite pretty significant sedation. I asked her if a tracheostomy tube would be something she considered and she shrugged her shoulders. I told her were not there at this time however she has been on the ventilator 5 days at this point and we typically do not leave people on ventilator for longer than 14 days so we do have some time but I would like her to start thinking about this. Patient has been febrile with a Tmax of 100.8 overnight. Objective Data Objective Data Vital Signs: Vital Signs Temp Pulse Resp BP Pulse Ox O2 Del Method O2 Flow Rate 100.5 F H 104 H 17 121/76 H 93 Mechanical Ventilator 35 07/29/23 08:00 07/29/23 08:59 07/29/23 08:59 07/29/23 08:00 07/29/23 08:59 07/29/23 08:00 07/25/23 04:10 FiO2 30 07/29/23 08:59 Oxygen Flow Rate (L/min) 35 Oxygen Delivery Method Mechanical Ventilator Weight: 52.5 kg Body Mass Index (BMI) 18.1 Intake & Output: Intake and Output for Last 24 Hours 07/27/23 07/28/23 07/29/23 23:59 23:59 23:59 Intake Total 2467.72 / 2589.72 3744.05 / 3865.10 547.38 / 547.38 Output Total 3050 / 3450 3050 / 3450 750 / 750 Balance -582.28 / -860.28 694.05 / 415.10 -202.62 / -202.62 Lab / Micro Data 07/29/23 04:55 07/29/23 04:55 Labs: Laboratory Results - last 24 hr 07/29/23 04:55: WBC 11.0, RBC 3.25 L, Hgb 8.0 L, Hct 27.4 L, MCV 84.3, MCH 24.6 L, MCHC 29.2 L, RDW Std Deviation 49.8 H, RDW Coeff of Sami 16.4 H, Plt Count 201, MPV 11.3, Immature Gran % (Auto) 0.800, Neut % (Auto) 86.6 H, Lymph % (Auto) 4.7 L, [place] % (Auto) 7.8, Eos % (Auto) 0.0, Baso % (Auto) 0.1, Absolute Neuts (auto) 9.5 H, Absolute Lymphs (auto) 0.52 L, Nucleated RBC % 0, Differential Comment SCANNED, Sodium 142, Potassium 4.1, Chloride 106, Carbon Dioxide 31.0, Anion Gap 5, BUN 29 H, Creatinine 0.41 L, Estim Creat Clear Calc 115.33, Est GFR (MDRD) Af Amer 202, Est GFR (MDRD) Non-Af 167, BUN/Creatinine Ratio 71.1 H, Glucose 154 H, Calcium 8.2 L, Magnesium 2.7 H, Triglycerides 84 07/29/23 07:50: Urine Color Yellow, Urine Clarity Clear, Urine pH 6.0, Ur Specific [place] 1.020, Urine Protein 30 H, Urine Glucose (UA) Normal, Urine Ketones Negative, Urine Occult Blood 150 H, Urine Nitrite Negative, Urine Bilirubin Negative, Urine Urobilinogen Normal, Ur Leukocyte Esterase 100 H, Urine RBC 0-5 SEEN, Urine WBC 0-5 SEEN, Ur Squamous Epith Cells 5-10 SEEN, Urine Bacteria 0 SEEN, Urine Mucus 0 SEEN, MRSA (PCR) Negative Micro: Microbiology 07/24/23 18:17 Blood Culture (Wb) - Anticubital Right Blood Culture - Preliminary No growth in 48 hours. 07/24/23 12:55 Sputum, Induced/Lukens Gram Stain - Final 07/24/23 12:55 Sputum, Induced/Lukens Respiratory Culture - Final Proteus mirabilis Staphylococcus aureus 07/24/23 11:17 Blood Culture (Wb) #2 - Anticubital Left Blood Culture - Preliminary No growth in 48 hours. 07/24/23 10:35 Blood Culture (Wb) - No Site/Description Given Blood Culture - Preliminary No growth in 48 hours. 07/24/23 13:05 Urine Catheter - Lundberg Urine Culture - Final Proteus mirabilis 07/24/23 13:05 Urine Catheter - [facility]berg Legionella Antigen - Final 07/24/23 13:05 Urine Catheter - [facility]berg Streptococcus pneumoniae Antigen (M - Final 07/24/23 15:55 Mucosa - Nasopharyngeal Respiratory Panel (PCR) - Final 07/24/23 10:55 Nasal Secretion SARS-CoV-2 & FLU Antigen (Rapid) - Final 07/24/23 10:55 Mucosa - Nasopharyngeal RSV RNA Qualitative (PCR) - Final 07/24/23 11:00 Stool Stool Occult Blood (CAROLYNE) - Final Physical Exam Const alert and no apparent distress; Negative for oriented x3, average body habitus, healthy appearing or well nourished Constitutional Narrative: Intubated, upper middle-aged, severely cachectic white female who appears much older than stated age, lying in bed on the ventilator awake and interacting appropriately HEENT normocephalic and head/scalp atraumatic HEENT Narrative: ET tube and OG in place Resp normal respiratory effort, no retractions, no use of accessory muscles and No clear to auscultation bilaterally Resp Narrative: Currently intubated, diminished but clear Auscultation: Negative for rales, rhonchi or wheezes Cardio regular rate, S1 normal heart sound, S2 normal heart sound, no murmurs, no rub, no gallops and no clicks Cardio Narrative: Irregular but not A-fib GI normal to inspection, nondistended, normoactive bowel sounds, soft to palpation and non-tender GI Narrative: Markedly scaphoid abdomen Neuro No oriented x3 and moves all extremities Neuro Narrative: Spontaneously moves all 4 extremities, follows commands and interacts appropriately Sensorium / Orientation: awake and alert Speech: Negative for speech normal Psych Psych Narrative: Unable to assess Assessment & Plan Assessment/Plan (1) Elevated brain natriuretic peptide (BNP) level: (2) Stage 4 very severe COPD by GOLD classification: (3) Elevated troponin I level: (4) Severe malnutrition: (5) Pulmonary cachexia due to COPD: (6) Respiratory acidosis: (7) Acute anemia: (8) Hypotension: (9) Staphylococcus aureus pneumonia: (10) Proteus pneumonia: (11) Fever: PLAN: Plan Acute on chronic hypoxic and hypercapnic respiratory failure secondary to acute exacerbation of COPD/Staph aureus and Proteus pneumonia -Placed on BiPAP on presentation however pH did not improve after 2 hours on BiPAP and therefore we intubated her for persistent hypercapnia and somnolence -Intubated 07/23/2023 -Patient remains on mechanical ventilation with an FiO2 of 35% -Has not been doing well on breathing trials becoming tachycardic and tachypneic -At baseline patient uses 2.5 L with exertion only -Sputum cultures are positive for Proteus and Staph aureus (MSSA) -Continue Solu-Medrol 40 every 8 -Aggressive pulmonary toilet -Continue ceftriaxone 2 g daily to complete treatment for pneumonia day 6 of 7 -Thank added today for fever overnight see below -Continue azithromycin for anti-inflammatory purposes -Repeat Lasix 40 mg again today -Pulmonary medicine following-discussed with CCM/ICU Fever -New overnight -Patient does not have white count but she does have a left shift white count has trended up from 6.6-11 in the last 24 hours -Will repeat blood, sputum cultures -Check UA -Add vancomycin -Check MRSA PCR -May be related to Precedex but need to rule out infection Acute on chronic respiratory acidosis -Acute on Chronic -2 appears to be between 55 and 65 -Treatment as above Troponin elevation -Type II NSTEMI secondary to acute respiratory failure as noted above -Echocardiogram shows an EF of 40 to 45% and diffuse mitral valve thickening which is stable compared to previous -No acute ischemia noted on EKG Acute on chronic anemia -Hemoglobin is stable and at 8.0 this morning -Hemoglobin drop may be dilutional with fluids given for sepsis -No identifiable bleeding on EGD so we will restart Eliquis and monitor counts -Iron studies appear to be consistent with iron deficiency and she did receive IV iron x 3 doses -No obvious signs of acute blood loss -Will monitor -GI following-appreciate input PAF -Patient has history of paroxysmal atrial fibrillation that especially worsens when she is in respiratory distress as anticipated -Patient has had some tachycardia that appears to be atrial fibrillation and possible MAT -If persistent may need some amiodarone -Sinew metoprolol to 50 mg p.o. twice daily -Continue home apixaban HFrEF-nonischemic cardiomyopathy -Last echocardiogram from 07/10/2022 shows an EF of 40% with mild global hypokinesis of the LV and mild to moderate mitral valve insufficiency -Echocardiogram stable with an EF of 40 to 45% with moderate mitral valve insufficiency -Hold home lisinopril -Continue metoprolol to 50 twice daily -Would recommend outpatient cardiology follow-up with outpatient noninvasive stress testing after stabilized clinically if echo shows no wall motion abnormality -Continue Lasix 20 mg IV twice daily -Patient is diuresing well and this will improve the likelihood of her getting extubated Severe malnutrition -Likely related to pulmonary cachexia -Continue tube feed and advance as able -Dietitian following -BMI is 18 -Supplements to be added once respiratory status is stable and patient is able to take a p.o. diet COPD Gold stage IV -Baseline FEV1 was 25% predicted -Wears 2.5 L of oxygen at baseline -Continue supplemental oxygen as noted -Hold inhalers -Pulmonary toilet as above -Follows with Dr. Enamorado as an outpatient -Still smoking -A questionable whether or not patient will be extubated due to the severity of her lung disease at baseline and this has been discussed previously with the patient with the result of her always wanting to be intubated as she was on admission Hypertension -Hold home lisinopril -Continue metoprolol to 50 mg p.o. twice daily -As needed hydralazine Tobacco abuse -Patient with ongoing tobacco abuse -Recommend cessation Depression -Patient is no longer taking anything for this DVT prophylaxis -Restart apixaban CODE STATUS -Full code is reviewed with the prior to leaving the emergency department by the emergency department physician -Overall prognosis is extremely poor and with the severity of her lung disease she will likely be very difficult to extubate--> I did discuss with patient tracheostomy placement today and she shrugs her shoulders when I asked her if that is something she would want. I told her that we have time to try to get off the ventilator however this is something she needs to think about. Charges/Coding Visit Charges Inpatient E&M: 09425 Subs Hosp L2
--- NOTE | 2023-07-29 10:07 | PCM.RX.CS ---
Consult Antibiotic Management Pharmacy has been consulted to manage selected antibiotic: Vancomycin Type of Intervention Type of Consult: New start Suspected Infection Suspected Infection: Other Labs Labs: Sodium 142 mmol/L (136-145) 07/29/23 04:55 Potassium 4.1 mmol/L (3.5-5.1) 07/29/23 04:55 Chloride 106 mmol/L (98-107) 07/29/23 04:55 Carbon Dioxide 31.0 mmol/L (21.0-32.0) 07/29/23 04:55 Anion Gap 5 (5-15) 07/29/23 04:55 BUN 29 mg/dL (7-18) H 07/29/23 04:55 Creatinine 0.41 mg/dL (0.55-1.02) L 07/29/23 04:55 Est GFR (MDRD) Af Amer 202 mL/min (>60) 07/29/23 04:55 Est GFR (MDRD) Non-Af 167 mL/min (>60) 07/29/23 04:55 BUN/Creatinine Ratio 71.1 RATIO (10-20) H 07/29/23 04:55 Glucose 154 mg/dL (74-106) H 07/29/23 04:55 Microbiology Microbiology: Microbiology 07/24/23 18:17 Blood Culture (Wb) - Anticubital Right Blood Culture - Preliminary No growth in 48 hours. 07/24/23 12:55 Sputum, Induced/Lukens Gram Stain - Final 07/24/23 12:55 Sputum, Induced/Lukens Respiratory Culture - Final Proteus mirabilis Staphylococcus aureus 07/24/23 11:17 Blood Culture (Wb) #2 - Anticubital Left Blood Culture - Preliminary No growth in 48 hours. 07/24/23 10:35 Blood Culture (Wb) - No Site/Description Given Blood Culture - Preliminary No growth in 48 hours. 07/24/23 13:05 Urine Catheter - Lundberg Urine Culture - Final Proteus mirabilis 07/24/23 13:05 Urine Catheter - [facility]berg Legionella Antigen - Final 07/24/23 13:05 Urine Catheter - [facility] Streptococcus pneumoniae Antigen (M - Final 07/24/23 15:55 Mucosa - Nasopharyngeal Respiratory Panel (PCR) - Final 07/24/23 10:55 Nasal Secretion SARS-CoV-2 & FLU Antigen (Rapid) - Final 07/24/23 10:55 Mucosa - Nasopharyngeal RSV RNA Qualitative (PCR) - Final 07/24/23 11:00 Stool Stool Occult Blood (CAROLYNE) - Final Goal Trough Goal Trough: 15-20 mcg/mL Pharmacy Plan for Drug Dosing Pharmacy Plan for Drug Dosing: NEW START IV VANCOMYCIN Consulting Physician: Dr. Matilde Garrison Indication: (+) fever/ infection r/o Goal Trough: 15-20 SrCr: 0.41 CrCl: >100 ml/min Comments: Patient had loading dose ordered and administered 07/29/23 @0819 Vancomycin Dose: 750mg IV Q8h to start 07/29/23 @1600 Pending Level: 07/30/23 @0730, prior to 4th total dose per protocol Pharmacy Service will continue to monitor and adjust dosing as required.
[2023-07-29] MEDS: Pantoprazole Sodium 40 MG in 0.9% Normal Saline (100mL MB+) 100 ML 330 MG IV (11:20)
[2023-07-29] MEDS: Chlorhexidine 15 ML PO ×2 (11:21→22:31)
[2023-07-29] MEDS: levoFLOXacin IV 500 MG/100 ML BAG 100 MG IV (11:21)
[2023-07-29] MEDS: APIXABAN 5 MG TABLET GT ×2 (11:22→22:31)
[2023-07-29] MEDS: Polyethylene Glycol 3350 17 GM PACKET GT (11:22)
[2023-07-29] MEDS: OLANZapine 2.5 MG Tablet PO (11:22)
[2023-07-29] MEDS: CHLORHEXIDINE GLUC 2% CLOTH 1 EACH TOWELETTE TOPICAL (11:22)
[2023-07-29] MEDS: Senna/Docusate Sodium 1 Tablet 2 TABLET GT ×2 (11:25→22:37)
[2023-07-29] MEDS: Metoprolol Tartrate 50 MG Tablet GT (11:25)
[2023-07-29] MEDS: Furosemide 20 MG/2 ML VIAL IV ×2 (11:26→17:09)
[2023-07-29 12:07] LABS: VBG TCO2 > 50 mmol/L (23-33)
[2023-07-29] MEDS: Vancomycin HCl 750 MG in 0.9% Normal Saline (250mL Bag) 250 ML 250 MG IV (16:33)
[2023-07-29] MEDS: Vital AF 1.2 Cal Liquid 1,000 ML 50 ML GT (16:55)
--- NOTE | 2023-07-29 17:20 | PN.CC_ITS ---
Assessment & Plan Assessment/Plan (1) COPD with acute exacerbation: (2) Pulmonary cachexia due to COPD: (3) Acute on chronic respiratory failure with hypoxia and hypercapnia: (4) Stage 4 very severe COPD by GOLD classification: (5) Non-ischemic cardiomyopathy: PLAN: Plan RECOMMENDATIONS: * Patient failed her SBT and she was tachycardic. Given her severe COPD and low EF and continuous smoking habits she is at high risk for requiring long- term ventilation. This was discussed with the pt and her significant other. * Meanwhile cont diuresis in the attempts to optimize her for another breathing trial. Zyprexa increased to 5 bid given her continuous agitation. * She was febrile overnight, vanc was added. Repeat blood cultures and sputum cutlure * Cont Eliquis * She remains on solumedrol bid IMPRESSIONS: 1. Acute on chronic combined respiratory failure secondary to COPD exacerbation Patient with advanced lung disease at baseline with continued smoking and likely progression of disease. Viral panel was negative at this time. Infiltrates will be difficult to evaluate as patient has very little lung parenchyma. Patient did have a slightly elevated BNP, but it is unclear if this is related to strain related to hypoxia. Patient will be given a low-dose of diuretics. Patient did have a fever overnight. Will transition patient to Levaquin. Spontaneous breathing and awakening trials per protocol. Patient is on steroids and bronchodilators. 2. Elevated troponin/chronic systolic CHF Patient did have a slightly elevated troponin on presentation. It is unclear if this is secondary to global hypoxemia. Last EF was in June of last year showing 40% with mild global hypokinesis of the left ventricle. Repeat echocardiogram shows little change. Patient did not present with severe hypertension to suggest flash pulmonary edema. 3. Severe protein malnutrition Patient has significantly reduced BMI. Patient likely has an element of pulmonary cachexia. Patient is also showing signs of iron deficiency. Dietitian has been consulted. Okay to continue tube feeds from my perspective. 4. Tobacco abuse/hypertension/debility/anemia Complicates care, management, recovery and prognosis. Will need PT and OT to evaluate patient. Patient did have a significant drop in hemoglobin, but this may be slightly delusional as all cell counts are down. Patient does appear to have an element of iron deficiency. TIME: 44 minutes critical care time spent addressing patient's respiratory failure, elevated troponin, malnutrition, review of all data and collaboration with care team Subjective Subjective Patient continues to fail SBT Tachycardia .She was also febrile overnight. Patient was awake this morning and her significant other was at bedside we discussed her options including tracheostomy. At this time she would like to think about it. Her significant other will also let her children know Objective Data Objective Data Vital Signs: Vital Signs Temp Pulse Resp BP Pulse Ox O2 Del Method O2 Flow Rate 37.8 C H 81 17 99/59 L 95 Mechanical Ventilator 35 07/29/23 16:00 07/29/23 16:00 07/29/23 16:00 07/29/23 16:00 07/29/23 16:00 07/29/23 16:00 07/25/23 04:10 FiO2 30 07/29/23 16:00 Oxygen Flow Rate (L/min) 35 Oxygen Delivery Method Mechanical Ventilator Weight: 52.5 kg Body Mass Index (BMI) 18.1 Intake & Output: Intake and Output for Last 24 Hours 07/27/23 07/28/23 07/29/23 23:59 23:59 23:59 Intake Total 2467.72 / 2589.72 3744.05 / 3865.10 2299.47 / 2299.47 Output Total 3050 / 3450 3050 / 3450 1600 / 1600 Balance -582.28 / -860.28 694.05 / 415.10 699.47 / 699.47 Lab / Micro Data 07/29/23 04:55 07/29/23 04:55 Labs: Laboratory Results - last 24 hr 07/29/23 04:55: WBC 11.0, RBC 3.25 L, Hgb 8.0 L, Hct 27.4 L, MCV 84.3, MCH 24.6 L, MCHC 29.2 L, RDW Std Deviation 49.8 H, RDW Coeff of Sami 16.4 H, Plt Count 201, MPV 11.3, Immature Gran % (Auto) 0.800, Neut % (Auto) 86.6 H, Lymph % (Auto) 4.7 L, [place] % (Auto) 7.8, Eos % (Auto) 0.0, Baso % (Auto) 0.1, Absolute Neuts (auto) 9.5 H, Absolute Lymphs (auto) 0.52 L, Nucleated RBC % 0, Differential Comment SCANNED, Sodium 142, Potassium 4.1, Chloride 106, Carbon Dioxide 31.0, Anion Gap 5, BUN 29 H, Creatinine 0.41 L, Estim Creat Clear Calc 115.33, Est GFR (MDRD) Af Amer 202, Est GFR (MDRD) Non-Af 167, BUN/Creatinine Ratio 71.1 H, Glucose 154 H, Calcium 8.2 L, Magnesium 2.7 H, Triglycerides 84 07/29/23 07:50: Urine Color Yellow, Urine Clarity Clear, Urine pH 6.0, Ur Specific [place] 1.020, Urine Protein 30 H, Urine Glucose (UA) Normal, Urine Ketones Negative, Urine Occult Blood 150 H, Urine Nitrite Negative, Urine Bilirubin Negative, Urine Urobilinogen Normal, Ur Leukocyte Esterase 100 H, Urine RBC 0-5 SEEN, Urine WBC 0-5 SEEN, Ur Squamous Epith Cells 5-10 SEEN, Urine Bacteria 0 SEEN, Urine Mucus 0 SEEN, MRSA (PCR) Negative Micro: Microbiology 07/29/23 07:45 Sputum, Induced/Lukens Gram Stain - Final 07/24/23 11:17 Blood Culture (Wb) #2 - Anticubital Left Blood Culture - Final No growth in 5 days. 07/24/23 10:35 Blood Culture (Wb) - No Site/Description Given Blood Culture - Final No growth in 5 days. 07/24/23 18:17 Blood Culture (Wb) - Anticubital Right Blood Culture - Preliminary No growth in 48 hours. 07/24/23 12:55 Sputum, Induced/Lukens Gram Stain - Final 07/24/23 12:55 Sputum, Induced/Lukens Respiratory Culture - Final Proteus mirabilis Staphylococcus aureus 07/24/23 13:05 Urine Catheter - Lundberg Urine Culture - Final Proteus mirabilis 07/24/23 13:05 Urine Catheter - [place]berg Legionella Antigen - Final 07/24/23 13:05 Urine Catheter - [place] Streptococcus pneumoniae Antigen (M - Final 07/24/23 15:55 Mucosa - Nasopharyngeal Respiratory Panel (PCR) - Final 07/24/23 10:55 Nasal Secretion SARS-CoV-2 & FLU Antigen (Rapid) - Final 07/24/23 10:55 Mucosa - Nasopharyngeal RSV RNA Qualitative (PCR) - Final 07/24/23 11:00 Stool Stool Occult Blood (CAROLYNE) - Final ABG Data ABG results: ABG 07/24/23 10:46 VBG Total CO2 > 50 H Physical Exam Const Constitutional Narrative: Intubated and sedated. RASS +1. Good vent synchrony. General Appearance: patient mechanically ventilated Chest Chest: abnormal inspection of the chest increased A-P diameter Resp Auscultation: diminished lung sounds diffuse (Severely) Cardio S1 normal heart sound, S2 normal heart sound and no rub Rate: tachycardic GI normal to inspection, nondistended, normoactive bowel sounds Psych Activity / Motor Behavior: restless Mood & Affect: anxious Charges/Coding Procedures Hospitalists Procedures: 32924 Critical Care 1st Hr
[2023-07-29] MEDS: OLANZapine 5 MG/TAB TAB.RAPDIS PO (22:33)
[2023-07-30] VITALS (39 sets, daily range): BP systolic 76–136; BP diastolic 49–94; PULSE 76–139; RESP 12–34; TEMP 37.7–38.6; O2SAT 89–100; BMI 18.7
[2023-07-30] MEDS: Vancomycin HCl 750 MG in 0.9% Normal Saline (250mL Bag) 250 ML 250 MG IV (00:30)
[2023-07-30] MEDS: guaiFENesin 10 ML UDC (200MG/10ML) NG ×2 (00:30→05:57)
[2023-07-30] MEDS: fentaNYL drip 100 ML 20 MCG CONT INF (00:30)
[2023-07-30] MEDS: 0.9% Normal Saline (500mL Bag) 500 ML 999 ML IV (02:41)
[2023-07-30] MEDS: Midazolam 2 MG/2 ML Syringe IV (02:42)
[2023-07-30 06:04] LABS: Allen Test Positive; Base Excess 6 mmol/L (-2 to +2); Bicarbonate 30.5 mmol/L (22-26); Blood Gas Specimen Type ART; Mode CPAP/PS; O2 Delivery Device Adult Vent; PEEP 5; PO2 57 mmHG (75-100); SITE L Radial; SO2 89 % (95-99); Total Carbon Dioxide 32 mmol/L; pCO2 47.6 mmHg (35-45); pH 7.41 (7.35-7.45)
[2023-07-30 06:25] LABS: Absolute Lymphocyte Count 1.32 X10^3/uL (0.83-4.51); Absolute Neutrophil Count 9.4 X10^3/uL (2.0-7.7); Basophil# 0.02 X10^3/uL; Basophil% 0.2 % (0-1); Eosinophil# 0.17 X10^3/uL; Eosinophils% 1.4 % (0-5); Hematocrit 28.7 % (37-47); Hemoglobin 8.3 g/dL (12.0-15.0); Lymphocyte # 1.32 X10^3/ul (0.83-4.51); Lymphocyte % 10.7 % (19-41); Mean Corp Hgb Conc 28.9 g/dL (32-36); Mean Corpuscular Hgb 24.8 pg (27.0-32.0); Mean Corpuscular Volume 85.7 fL (81-99); Mean Platelet Vol. 11.9 fl (6.2-12.0); Monocyte# 1.29 X10^3/uL; Monocyte% 10.4 % (0-10); NRBC Flagged by Analyzer 0 % (0-5); Neutrophil # 9.42 X10^3/uL (2.7-7.7); Neutrophil % 76.1 % (47-70); Platelet Count 212 K/mm3 (150-450); RBC Distribution Width CV 17.2 % (11.6-14.6); RBC Distribution Width SD 51.3 fl (35.1-43.9); Red Blood Count 3.35 M/mm3 (4.2-5.4); White Blood Count 12.4 K/mm3 (4.4-11.0)
[2023-07-30 06:40] LABS: Anion Gap 4 (5-15); BUN 27 mg/dL (7-18); BUN/Creat Ratio 73.4 RATIO (10-20); Calcium,Total 7.9 mg/dL (8.5-10.1); Chloride 106 mmol/L (98-107); Creatinine, Serum 0.37 mg/dL (0.55-1.02); EST Glomerular Filtration Rate 188 mL/min (>60); Est Glom Filt Rate - Afr Amer 227 mL/min (>60); Estimated Creatinine Clearance 131.43 ml/min; Glucose 124 mg/dL (74-106); Magnesium 2.2 mg/dL (1.6-2.6); Potassium 3.8 mmol/L (3.5-5.1); Sodium Level 142 mmol/L (136-145)
[2023-07-30] MEDS: 0.9% Saline Lock 10 ML Syringe IV (06:56)
[2023-07-30] MEDS: Vancomycin Trough/Random Due 1 LAB MC (06:57)
[2023-07-30] MEDS: Ipratropium/Albuterol Sulfate 3 ML AMPUL.NEB INHALATION ×4 (07:28→18:55)
--- NOTE | 2023-07-30 07:38 | PCM.RX.CS ---
Consult Antibiotic Management Pharmacy has been consulted to manage selected antibiotic: Vancomycin Type of Intervention Type of Consult: Follow-up Labs Labs: Sodium 142 mmol/L (136-145) 07/30/23 06:15 Potassium 3.8 mmol/L (3.5-5.1) 07/30/23 06:15 Chloride 106 mmol/L (98-107) 07/30/23 06:15 Carbon Dioxide 32.0 mmol/L (21.0-32.0) 07/30/23 06:15 Anion Gap 4 (5-15) L 07/30/23 06:15 BUN 27 mg/dL (7-18) H 07/30/23 06:15 Creatinine 0.37 mg/dL (0.55-1.02) L 07/30/23 06:15 Est GFR (MDRD) Af Amer 227 mL/min (>60) 07/30/23 06:15 Est GFR (MDRD) Non-Af 188 mL/min (>60) 07/30/23 06:15 BUN/Creatinine Ratio 73.4 RATIO (10-20) H 07/30/23 06:15 Glucose 124 mg/dL (74-106) H 07/30/23 06:15 Vancomycin Trough 19.0 ug/mL (5.0-15.0) H 07/30/23 06:15 Microbiology Microbiology: Microbiology 07/24/23 18:17 Blood Culture (Wb) - Anticubital Right Blood Culture - Final No growth in 5 days. 07/29/23 07:45 Sputum, Induced/Lukens Gram Stain - Final 07/24/23 11:17 Blood Culture (Wb) #2 - Anticubital Left Blood Culture - Final No growth in 5 days. 07/24/23 10:35 Blood Culture (Wb) - No Site/Description Given Blood Culture - Final No growth in 5 days. 07/24/23 12:55 Sputum, Induced/Lukens Gram Stain - Final 07/24/23 12:55 Sputum, Induced/Lukens Respiratory Culture - Final Proteus mirabilis Staphylococcus aureus 07/24/23 13:05 Urine Catheter - Lundberg Urine Culture - Final Proteus mirabilis 07/24/23 13:05 Urine Catheter - [place]berg Legionella Antigen - Final 07/24/23 13:05 Urine Catheter - [place] Streptococcus pneumoniae Antigen (M - Final 07/24/23 15:55 Mucosa - Nasopharyngeal Respiratory Panel (PCR) - Final 07/24/23 10:55 Nasal Secretion SARS-CoV-2 & FLU Antigen (Rapid) - Final 07/24/23 10:55 Mucosa - Nasopharyngeal RSV RNA Qualitative (PCR) - Final 07/24/23 11:00 Stool Stool Occult Blood (CAROLYNE) - Final Goal Trough Goal Trough: 15-20 mcg/mL Pharmacy Plan for Drug Dosing Pharmacy Plan for Drug Dosing: VANCOMYCIN LEVEL RECEIVED Current Vancomycin Dose: 750MG IV Q8hr Number of Doses Received: 3 (loading + 2 scheduled doses Vancomycin Level: 19 Hours Since Last Dose: 5.75hr Renal Function: 0.37 Renal Function Trend: stable Lab/Micro: repeat cx pending Vancomycin Plan/Comments: Patient had a trough drawn which resulted in a value of 19 (goal 15-20). It appears patient's trough is within therapeutic goal, however the trough was drawn >1hr early so the true trough is likely lower than stated value. Will continue current dose of vancomycin 750mg IV q8h and recheck a trough tomorrow morning to see if patient is still within therapeutic goal. Pending Level: 07/31/23 @0730 Pharmacy Service will continue to monitor and adjust dosing as required.
[2023-07-30 08:39] LABS: Allen Test Positive; Base Excess 6 mmol/L (-2 to +2); Bicarbonate 30.6 mmol/L (22-26); Blood Gas Specimen Type ART; Mode CPAP/PS; O2 Delivery Device Adult Vent; PEEP 5; PO2 60 mmHG (75-100); SITE R Radial; SO2 91 % (95-99); Total Carbon Dioxide 32 mmol/L; pCO2 47.9 mmHg (35-45); pH 7.41 (7.35-7.45)
[2023-07-30] MEDS: fentaNYL drip 100 ML 5 MCG CONT INF (09:05)
--- NOTE | 2023-07-30 09:26 | PN.CC_ITS ---
Assessment & Plan Assessment/Plan (1) COPD with acute exacerbation: (2) Pulmonary cachexia due to COPD: (3) Acute on chronic respiratory failure with hypoxia and hypercapnia: (4) Stage 4 very severe COPD by GOLD classification: (5) Non-ischemic cardiomyopathy: PLAN: Plan RECOMMENDATIONS: * Patient passed SBT and was extubated to bipap.Will wean to NC if able but she will need to wear bipap at night * Cont diuresis. she remains net positive since admission * She remains on solumedrol, if she continues to do well it can be switched to PO prednisone * Cont on zyprexa. Pt is also on precedex as she has severe anxiety * So far bldcultures are negative. Sputum cx growing yeast, Tmax 38.4C. She will complete levoquin today. MRSA swab -ve * Given her uncontrolled A fib will increase lopressor. She is not a good candidate for longterm amiodarone use given her severe lung disease but can consider short term if necessary * Cont Eliquis IMPRESSIONS: 1. Acute on chronic combined respiratory failure secondary to COPD exacerbation s/p extubation 07/30/23 Patient with advanced lung disease at baseline with continued smoking and likely progression of disease. Viral panel was negative at this time. Infiltrates will be difficult to evaluate as patient has very little lung parenchyma. Patient did have a slightly elevated BNP, but it is unclear if this is related to strain related to hypoxia. 2. Elevated troponin/chronic systolic CHF Patient did have a slightly elevated troponin on presentation. It is unclear if this is secondary to global hypoxemia. Last EF was in June of last year showing 40% with mild global hypokinesis of the left ventricle. Repeat echocardiogram shows little change. Patient did not present with severe hypertension to suggest flash pulmonary edema. 3. Severe protein malnutrition Patient has significantly reduced BMI. Patient likely has an element of pulmonary cachexia. Patient is also showing signs of iron deficiency. Felipe mitchell has been consulted. 4. Tobacco abuse/hypertension/debility/anemia Complicates care, management, recovery and prognosis. Will need PT and OT to evaluate patient. Patient did have a significant drop in hemoglobin, but this may be slightly delusional as all cell counts are down. Patient does appear to have an element of iron deficiency. EGD was negative TIME: 37 minutes critical care time spent addressing patient's respiratory failure, elevated troponin, malnutrition, review of all data and collaboration with care team Subjective Subjective pt passed sbt and was extubated to bipap this AM Objective Data Objective Data Vital Signs: Vital Signs Temp Pulse Resp BP Pulse Ox O2 Del Method O2 Flow Rate 38.1 C H 115 H 18 125/89 H 94 Bi-pap 35 07/30/23 06:00 07/30/23 08:58 07/30/23 08:58 07/30/23 07:00 07/30/23 08:58 07/30/23 08:58 07/25/23 04:10 FiO2 28 07/30/23 08:58 Oxygen Flow Rate (L/min) 35 Oxygen Delivery Method Bi-pap Weight: 54.2 kg Body Mass Index (BMI) 18.7 Intake & Output: Intake and Output for Last 24 Hours 07/28/23 07/29/23 07/30/23 23:59 23:59 23:59 Intake Total 3744.05 / 3865.10 2970.82 / 3093.42 1698.97 / 1698.97 Output Total 3050 / 3450 2900 / 2900 600 / 600 Balance 694.05 / 415.10 70.82 / 193.42 1098.97 / 1098.97 Lab / Micro Data 07/30/23 06:15 07/30/23 06:15 Labs: Laboratory Results - last 24 hr 07/29/23 07:50: MRSA (PCR) Negative 07/30/23 06:15: WBC 12.4 H, RBC 3.35 L, Hgb 8.3 L, Hct 28.7 L, MCV 85.7, MCH 24.8 L, MCHC 28.9 L, RDW Std Deviation 51.3 H, RDW Coeff of Sami 17.2 H, Plt Count 212, MPV 11.9, Immature Gran % (Auto) 1.200 H, Neut % (Auto) 76.1 H, Lymph % (Auto) 10.7 L, [place] % (Auto) 10.4 H, Eos % (Auto) 1.4, Baso % (Auto) 0.2, Absolute Neuts (auto) 9.4 H, Absolute Lymphs (auto) 1.32, Nucleated RBC % 0, Sodium 142, Potassium 3.8, Chloride 106, Carbon Dioxide 32.0, Anion Gap 4 L, BUN 27 H, Creatinine 0.37 L, Estim Creat Clear Calc 131.43, Est GFR (MDRD) Af Amer 227, Est GFR (MDRD) Non-Af 188, BUN/Creatinine Ratio 73.4 H, Glucose 124 H, Calcium 7.9 L, Magnesium 2.2, Vancomycin Trough 19.0 H Micro: Microbiology 07/24/23 18:17 Blood Culture (Wb) - Anticubital Right Blood Culture - Final No growth in 5 days. 07/29/23 07:45 Sputum, Induced/Lukens Gram Stain - Final 07/24/23 11:17 Blood Culture (Wb) #2 - Anticubital Left Blood Culture - Final No growth in 5 days. 07/24/23 10:35 Blood Culture (Wb) - No Site/Description Given Blood Culture - Final No growth in 5 days. 07/24/23 12:55 Sputum, Induced/Lukens Gram Stain - Final 07/24/23 12:55 Sputum, Induced/Lukens Respiratory Culture - Final Proteus mirabilis Staphylococcus aureus 07/24/23 13:05 Urine Catheter - Lundberg Urine Culture - Final Proteus mirabilis 07/24/23 13:05 Urine Catheter - [place]berg Legionella Antigen - Final 07/24/23 13:05 Urine Catheter - [place] Streptococcus pneumoniae Antigen (M - Final 07/24/23 15:55 Mucosa - Nasopharyngeal Respiratory Panel (PCR) - Final 07/24/23 10:55 Nasal Secretion SARS-CoV-2 & FLU Antigen (Rapid) - Final 07/24/23 10:55 Mucosa - Nasopharyngeal RSV RNA Qualitative (PCR) - Final 07/24/23 11:00 Stool Stool Occult Blood (CAROLYNE) - Final ABG Data ABG results: ABG 07/24/23 07/30/23 07/30/23 10:46 06:00 08:33 Specimen Type ART ART Sample Site L Radial R Radial pH 7.41 7.41 Bicarbonate Actual 30.5 H 30.6 H Total CO2 32 32 Base Excess 6 H 6 H O2 Saturation 89 L 91 L O2 % 35.0 30.0 ABG pCO2 47.6 H 47.9 H ABG pO2 57 L 60 L Arnoldo Test Positive Positive VBG Total CO2 > 50 H O2 Delivery Device Adult Vent Adult Vent Vent Mode CPAP/PS CPAP/PS POC PEEP 5 5 Physical Exam Narrative General alert tolerating SBT HEENT. Normocephalic atraumatic, pupils equal and reactive Respiratory mechanical breath sounds Cardiac S1-S2, regular rate and rhythm, tachycardic GI abdomen soft and nontender MSK no lower extremity edema Skin no rashes Neuro moves all extremities, no facial droop Charges/Coding Procedures Hospitalists Procedures: 28608 Critical Care 1st Hr
--- NOTE | 2023-07-30 09:53 | PCM.PN.HOSP ---
Reason for Visit Reason for Visit: Shortness of breath/lethargy Subjective Subjective Still some intermittent tachycardia. No other issues overnight. Is currently doing well and her breathing trial and pulmonary medicine may try to extubate her today. Patient denies any pain. Objective Data Objective Data Vital Signs: Vital Signs Temp Pulse Resp BP Pulse Ox O2 Del Method O2 Flow Rate 100.6 F H 115 H 18 125/89 H 94 Bi-pap 35 07/30/23 06:00 07/30/23 08:58 07/30/23 08:58 07/30/23 07:00 07/30/23 08:58 07/30/23 08:58 07/25/23 04:10 FiO2 28 07/30/23 08:58 Oxygen Flow Rate (L/min) 35 Oxygen Delivery Method Bi-pap Weight: 54.2 kg Body Mass Index (BMI) 18.7 Intake & Output: Intake and Output for Last 24 Hours 07/28/23 07/29/23 07/30/23 23:59 23:59 23:59 Intake Total 3744.05 / 3865.10 2970.82 / 3093.42 1698.97 / 1698.97 Output Total 3050 / 3450 2900 / 2900 600 / 600 Balance 694.05 / 415.10 70.82 / 193.42 1098.97 / 1098.97 Lab / Micro Data 07/30/23 06:15 07/30/23 06:15 Labs: Laboratory Results - last 24 hr 07/30/23 06:15: WBC 12.4 H, RBC 3.35 L, Hgb 8.3 L, Hct 28.7 L, MCV 85.7, MCH 24.8 L, MCHC 28.9 L, RDW Std Deviation 51.3 H, RDW Coeff of Sami 17.2 H, Plt Count 212, MPV 11.9, Immature Gran % (Auto) 1.200 H, Neut % (Auto) 76.1 H, Lymph % (Auto) 10.7 L, [place] % (Auto) 10.4 H, Eos % (Auto) 1.4, Baso % (Auto) 0.2, Absolute Neuts (auto) 9.4 H, Absolute Lymphs (auto) 1.32, Nucleated RBC % 0, Sodium 142, Potassium 3.8, Chloride 106, Carbon Dioxide 32.0, Anion Gap 4 L, BUN 27 H, Creatinine 0.37 L, Estim Creat Clear Calc 131.43, Est GFR (MDRD) Af Amer 227, Est GFR (MDRD) Non-Af 188, BUN/Creatinine Ratio 73.4 H, Glucose 124 H, Calcium 7.9 L, Magnesium 2.2, Vancomycin Trough 19.0 H Micro: Microbiology 07/24/23 18:17 Blood Culture (Wb) - Anticubital Right Blood Culture - Final No growth in 5 days. 07/29/23 07:45 Sputum, Induced/Lukens Gram Stain - Final 07/24/23 11:17 Blood Culture (Wb) #2 - Anticubital Left Blood Culture - Final No growth in 5 days. 07/24/23 10:35 Blood Culture (Wb) - No Site/Description Given Blood Culture - Final No growth in 5 days. 07/24/23 12:55 Sputum, Induced/Lukens Gram Stain - Final 07/24/23 12:55 Sputum, Induced/Lukens Respiratory Culture - Final Proteus mirabilis Staphylococcus aureus 07/24/23 13:05 Urine Catheter - Lundberg Urine Culture - Final Proteus mirabilis 07/24/23 13:05 Urine Catheter - [place] Legionella Antigen - Final 07/24/23 13:05 Urine Catheter - [place] Streptococcus pneumoniae Antigen (M - Final 07/24/23 15:55 Mucosa - Nasopharyngeal Respiratory Panel (PCR) - Final 07/24/23 10:55 Nasal Secretion SARS-CoV-2 & FLU Antigen (Rapid) - Final 07/24/23 10:55 Mucosa - Nasopharyngeal RSV RNA Qualitative (PCR) - Final 07/24/23 11:00 Stool Stool Occult Blood (CAROLYNE) - Final ABG Data ABG results: ABG 07/24/23 07/30/23 07/30/23 10:46 06:00 08:33 Specimen Type ART ART Sample Site L Radial R Radial pH 7.41 7.41 Bicarbonate Actual 30.5 H 30.6 H Total CO2 32 32 Base Excess 6 H 6 H O2 Saturation 89 L 91 L O2 % 35.0 30.0 ABG pCO2 47.6 H 47.9 H ABG pO2 57 L 60 L Arnoldo Test Positive Positive VBG Total CO2 > 50 H O2 Delivery Device Adult Vent Adult Vent Vent Mode CPAP/PS CPAP/PS POC PEEP 5 5 Physical Exam Const alert and no apparent distress; Negative for oriented x3, average body habitus, healthy appearing or well nourished Constitutional Narrative: Intubated, upper middle-aged, severely cachectic white female who appears much older than stated age, lying in bed on the ventilator awake and interacting appropriately, follows all commands HEENT normocephalic, head/scalp atraumatic and moist oral mucous membranes HEENT Narrative: ET tube/OG in place Resp normal respiratory effort, no retractions, no use of accessory muscles and No clear to auscultation bilaterally Resp Narrative: Currently intubated, diminished but clear Auscultation: Negative for rales, rhonchi or wheezes Cardio S1 normal heart sound, S2 normal heart sound, no murmurs, no rub, no gallops and no clicks Cardio Narrative: Mild tachycardia, irregular but not A-fib GI normal to inspection, nondistended, normoactive bowel sounds, soft to palpation and non-tender GI Narrative: Markedly scaphoid abdomen Extremity Extremity Narrative: No edema, severely diminished lean muscle mass, no cyanosis, clubbing is present Neuro No oriented x3 and moves all extremities Neuro Narrative: Spontaneously moves all 4 extremities, follows commands and interacts appropriately Sensorium / Orientation: awake and alert Speech: Negative for speech normal Psych Psych Narrative: Unable to assess Assessment & Plan Assessment/Plan (1) Elevated brain natriuretic peptide (BNP) level: (2) Stage 4 very severe COPD by GOLD classification: (3) Elevated troponin I level: (4) Severe malnutrition: (5) Pulmonary cachexia due to COPD: (6) Respiratory acidosis: (7) Acute anemia: (8) Hypotension: (9) Staphylococcus aureus pneumonia: (10) Proteus pneumonia: (11) Fever: PLAN: Plan Acute on chronic hypoxic and hypercapnic respiratory failure secondary to acute exacerbation of COPD/Staph aureus and Proteus pneumonia -Placed on BiPAP on presentation however pH did not improve after 2 hours on BiPAP and therefore we intubated her for persistent hypercapnia and somnolence -Intubated 07/23/2023 -Hopeful for extubation today -Patient remains on mechanical ventilation with an FiO2 of 35% -Thus far doing well and her breathing trial -At baseline patient uses 2.5 L with exertion only -Sputum cultures are positive for Proteus and Staph aureus (MSSA) -Continue Solu-Medrol 40 every 8 -Aggressive pulmonary toilet -Continue Levaquin to complete treatment for pneumonia day 7 of 7 -Continue Lasix 40 mg IV push twice daily per pulmonary medicine -Pulmonary medicine following-discussed with CCM/ICU Fever -Tmax overnight 101 -Patient does not have white count but she does have a left shift white count has trended up from 6.6-11 in the last 24 hours -Will repeat blood, sputum cultures are pending -UA was not consistent with infection -MRSA PCR is negative so we will discontinue bank -May be related to Precedex but need to rule out infection--> if can be extubated should be able to discontinue Precedex to see if this helps Acute on chronic respiratory acidosis -Acute on Chronic -2 appears to be between 55 and 65 -Treatment as above Troponin elevation -Type II NSTEMI secondary to acute respiratory failure as noted above -Echocardiogram shows an EF of 40 to 45% and diffuse mitral valve thickening which is stable compared to previous -No acute ischemia noted on EKG Acute on chronic anemia -Hemoglobin is stable and at 8.0 this morning -Hemoglobin drop may be dilutional with fluids given for sepsis -No identifiable bleeding on EGD so we will restart Eliquis and monitor counts -Iron studies appear to be consistent with iron deficiency and she did receive IV iron x 3 doses -No obvious signs of acute blood loss -Will monitor -GI following-appreciate input PAF -Patient has history of paroxysmal atrial fibrillation that especially worsens when she is in respiratory distress as anticipated -Patient has had some tachycardia that appears to be atrial fibrillation and possible MAT -If persistent may need some amiodarone -Continue metoprolol to 50 mg p.o. twice daily -Continue home apixaban HFrEF-nonischemic cardiomyopathy -Last echocardiogram from 07/10/2022 shows an EF of 40% with mild global hypokinesis of the LV and mild to moderate mitral valve insufficiency -Echocardiogram stable with an EF of 40 to 45% with moderate mitral valve insufficiency -Hold home lisinopril -Continue metoprolol to 50 twice daily -Would recommend outpatient cardiology follow-up with outpatient noninvasive stress testing after stabilized clinically if echo shows no wall motion abnormality -Continue Lasix 20 mg IV twice daily -Patient is diuresing well and this will improve the likelihood of her getting extubated Severe malnutrition -Likely related to pulmonary cachexia -Continue tube feed and advance as able -Dietitian following -BMI is 18 -Supplements to be added once respiratory status is stable and patient is able to take a p.o. diet COPD Gold stage IV -Baseline FEV1 was 25% predicted -Wears 2.5 L of oxygen at baseline -Continue supplemental oxygen as noted -Hold inhalers -Pulmonary toilet as above -Follows with Dr. Enamorado as an outpatient -Still smoking -A questionable whether or not patient will be extubated due to the severity of her lung disease at baseline and this has been discussed previously with the patient with the result of her always wanting to be intubated as she was on admission Hypertension -Hold home lisinopril -Continue metoprolol to 50 mg p.o. twice daily -As needed hydralazine Tobacco abuse -Patient with ongoing tobacco abuse -Recommend cessation Depression -Patient is no longer taking anything for this DVT prophylaxis -Continue apixaban CODE STATUS -Full code is reviewed with the prior to leaving the emergency department by the emergency department physician Charges/Coding Visit Charges Inpatient E&M: 66988 Subs Hosp L2
[2023-07-30] MEDS: CHLORHEXIDINE GLUC 2% CLOTH 1 EACH TOWELETTE TOPICAL (10:13)
[2023-07-30] MEDS: Pantoprazole Sodium 40 MG in 0.9% Normal Saline (100mL MB+) 100 ML 330 MG IV (10:14)
[2023-07-30] MEDS: levoFLOXacin IV 500 MG/100 ML BAG 100 MG IV (10:15)
[2023-07-30] MEDS: Furosemide 40 MG/4 ML Vial IV (10:15)
[2023-07-30] MEDS: Metoprolol Tartrate 5 MG/5 ML Vial IV (10:38)
[2023-07-30] MEDS: guaiFENesin 10 ML UDC (200MG/10ML) PO (14:58)
[2023-07-30] MEDS: Metoprolol Tartrate 50 MG Tablet PO ×2 (14:58→22:53)
[2023-07-30] MEDS: Dexmedetomidine 1,000 mcg in 0.9% NS 240 mL 13 MCG CONT INF (16:37)
[2023-07-30] MEDS: Furosemide 20 MG/2 ML VIAL IV (17:31)
--- NOTE | 2023-07-30 20:00 | NURSING ---
Pt's coretemp noted to be 101.4f, Precedex turned down from 1mcg to 0.5mcg as reducing the rate of infusion on the previous night helped to lower the temp and MD notified.
--- NOTE | 2023-07-30 20:23 | NURSING ---
Pt placed on AVAPS d/t falling asleep and O2 sat dropping to 82%, pt compliant.
[2023-07-30] MEDS: APIXABAN 5 MG TABLET PO (22:52)
[2023-07-30] MEDS: OLANZapine 5 MG/TAB TAB.RAPDIS PO (22:54)
[2023-07-30] MEDS: Acetaminophen 325 MG Tablet 650 MG PO (22:58)
[2023-07-30] MEDS: Senna/Docusate Sodium 1 Tablet 2 TABLET PO (22:58)
[2023-07-31] VITALS (33 sets, daily range): BP systolic 96–151; BP diastolic 51–99; PULSE 96–160; RESP 12–28; TEMP 37.4–38; O2SAT 87–98; BMI 17.3
--- NOTE | 2023-07-31 02:11 | NURSING ---
Pt calling staff to remove the BiPAP mask because it's too tight. Mask seal checked and mask found to loose and leaking, pt informed that the mask is not tight at all and states, I just want it off, I can't take it anymore. I promise that I will stay awake with the O2 just in my nose. Pt educated on necessity of pressure to drive O2 into her COPD lungs and pt restates that she promises to not fall asleep. Discussed coed status changes w/pt and explained that the option of DNRCCA-DNI will eliminate being placed back on mechanical ventilator support and being a DNRCCO will permit her to wear, or not wear, any amt of O2 thru her nose that she wants and eat/drink for pleasure. Pt able to restate all information and states that she will remain a full code and promises again to not fall asleep and stay awake in order to stay off of the mask. Precedex gtt weaned off.
--- NOTE | 2023-07-31 03:26 | NURSING ---
Pt called out to staff to request PAP placement after consideration of the information given earlier, pt states I'm ready to try and get some sleep.
[2023-07-31 03:38] LABS: Absolute Lymphocyte Count 0.44 X10^3/uL (0.83-4.51); Absolute Neutrophil Count 12.8 X10^3/uL (2.0-7.7); Basophil# 0.01 X10^3/uL; Basophil% 0.1 % (0-1); Eosinophil# 0.01 X10^3/uL; Eosinophils% 0.1 % (0-5); Hematocrit 30.1 % (37-47); Hemoglobin 8.8 g/dL (12.0-15.0); Lymphocyte # 0.44 X10^3/ul (0.83-4.51); Lymphocyte % 3.2 % (19-41); Mean Corp Hgb Conc 29.2 g/dL (32-36); Mean Corpuscular Hgb 25.3 pg (27.0-32.0); Mean Corpuscular Volume 86.5 fL (81-99); Mean Platelet Vol. 11.8 fl (6.2-12.0); Monocyte% 1.5 % (0-10); NRBC Flagged by Analyzer 0 % (0-5); Neutrophil # 12.78 X10^3/uL (2.7-7.7); Neutrophil % 94.1 % (47-70); POSITIVE DIFFERENTIAL YES; Platelet Count 223 K/mm3 (150-450); RBC Distribution Width CV 17.8 % (11.6-14.6); RBC Distribution Width SD 51.8 fl (35.1-43.9); Red Blood Count 3.48 M/mm3 (4.2-5.4); White Blood Count 13.6 K/mm3 (4.4-11.0)
[2023-07-31 04:04] LABS: AST(SGOT) 15 U/L (15-37); Alanine Aminotransfer ALT/SGPT 19 U/L (13-56); Albumin, Serum 2.9 g/dL (3.2-5.0); Alkaline Phosphatase 47 U/L (45-117); Bilirubin, Direct 0.12 mg/dL (0.00-0.30); Phosphorus 1.8 mg/dL (2.5-4.9); Protein, Total 5.9 g/dL (6.4-8.2)
[2023-07-31 04:10] LABS: Anion Gap 4 (5-15); BUN 21 mg/dL (7-18); BUN/Creat Ratio 51.5 RATIO (10-20); Calcium,Total 8.7 mg/dL (8.5-10.1); Chloride 103 mmol/L (98-107); Creatinine, Serum 0.41 mg/dL (0.55-1.02); EST Glomerular Filtration Rate 167 mL/min (>60); Est Glom Filt Rate - Afr Amer 202 mL/min (>60); Estimated Creatinine Clearance 118.61 ml/min; Glucose 142 mg/dL (74-106); Potassium 3.7 mmol/L (3.5-5.1); Sodium Level 142 mmol/L (136-145)
[2023-07-31 04:46] LABS: Differential Indicated SCAN CRITERIA MET
[2023-07-31 05:11] LABS: Differential Comment SCANNED
[2023-07-31] MEDS: Ipratropium/Albuterol Sulfate 3 ML AMPUL.NEB INHALATION (07:03)
--- NOTE | 2023-07-31 07:15 | PN.CC_ITS ---
Assessment & Plan Assessment/Plan (1) COPD with acute exacerbation: (2) Pulmonary cachexia due to COPD: (3) Acute on chronic respiratory failure with hypoxia and hypercapnia: (4) Stage 4 very severe COPD by GOLD classification: (5) Non-ischemic cardiomyopathy: PLAN: Plan RECOMMENDATIONS: 1. Wean supplemental oxygen to maintain saturations above 90%. 2. Transition from DuoNebs to scheduled Atrovent. 3. Continue Levaquin to complete 7 days of therapy. 4. Diuresis as tolerated by hemodynamics and renal function. 5. Continue Eliquis as ordered. 6. Okay to transition to prednisone beginning today. 7. Continue beta-julianna as ordered. 8. Symptomatic management of anxiety. IMPRESSIONS: 1. Acute on chronic combined respiratory failure secondary to COPD exacerbation The patient has advanced lung disease at baseline with continued smoking and likely progression of disease. Viral panel was negative. Infiltrates will be difficult to evaluate as patient has very little lung parenchyma. The patient was ultimately able to be extubated and is doing well on supplemental oxygen via nasal cannula. Plan to continue supportive care including antibiotics, bronchodilators and prednisone. Wean supplemental oxygen to maintain saturations at or above 90%. Continue AVAPS therapy nightly. 2. Elevated troponin/chronic systolic CHF Most likely secondary to demand ischemia in the setting of #1. Continue supportive care. 3. Severe protein malnutrition The patient has significantly reduced BMI and likely has an element of pulmonary cachexia. Continue nutritional support per dietary recommendations. 4. Tobacco abuse/hypertension/debility/anemia Complicates care, management, recovery and prognosis. PT/OT to work with the patient. The patient will need to follow-up with her primary composing room machinist apprentice, Dr. Enamorado, upon discharge from the hospital. This note was generated with [employer] dictation software. It may contain incorrect words, spelling, and punctuation that were not noted in checking the note before signing. Subjective Subjective The patient was seen and examined at the bedside this morning. Events from the last 24 hours have been reviewed. The patient is currently afebrile, hemodynamically stable and maintaining appropriate oxygen saturations on 8 L/min via nasal cannula. The patient was successfully extubated yesterday. She is documented to be overall net +4 L for the hospitalization. White count is elevated at 13,000. The patient does confirm ongoing shortness of breath and anxiety. Objective Data Objective Data The patient's most recent lab work, culture data and imaging studies have all been personally reviewed. Surface echocardiogram from July 25 demonstrated normal LV size and thickness with an ejection fraction of 40 to 45%. Sputum culture dated July 24 was positive for Proteus mirabilis and Staph aureus. Vital Signs: Vital Signs Temp Pulse Resp BP Pulse Ox O2 Del Method O2 Flow Rate 100.3 F H 137 H 23 H 131/80 H 95 Nasal Cannula 8 07/31/23 06:00 07/31/23 07:04 07/31/23 07:04 07/31/23 06:00 07/31/23 07:04 07/31/23 07:04 07/31/23 07:04 FiO2 28 07/31/23 06:00 Oxygen Flow Rate (L/min) 8 Oxygen Delivery Method Nasal Cannula Weight: 110 lb 10.753 oz Body Mass Index (BMI) 17.3 Intake & Output: Intake and Output for Last 24 Hours 07/29/23 07/30/23 07/31/23 23:59 23:59 23:59 Intake Total 2970.82 / 3093.42 2179.04 / 2181.97 9.11 / 9.11 Output Total 2900 / 2900 3800 / 3800 725 / 725 Balance 70.82 / 193.42 -1620.96 / -1618.03 -715.89 / -715.89 Lab / Micro Data Attestation: I reviewed the patient's lab results. 07/31/23 03:20 07/31/23 03:20 Labs: Laboratory Results - last 24 hr 07/31/23 03:20: WBC 13.6 H, RBC 3.48 L, Hgb 8.8 L, Hct 30.1 L, MCV 86.5, MCH 25.3 L, MCHC 29.2 L, RDW Std Deviation 51.8 H, RDW Coeff of Sami 17.8 H, Plt Count 223, MPV 11.8, Immature Gran % (Auto) 1.000 H, Neut % (Auto) 94.1 H, Lymph % (Auto) 3.2 L, [place] % (Auto) 1.5, Eos % (Auto) 0.1, Baso % (Auto) 0.1, Absolute Neuts (auto) 12.8 H, Absolute Lymphs (auto) 0.44 L, Nucleated RBC % 0, Differential Comment SCANNED, Sodium 142, Potassium 3.7, Chloride 103, Carbon Dioxide 35.0 H, Anion Gap 4 L, BUN 21 H, Creatinine 0.41 L, Estim Creat Clear Calc 118.61, Est GFR (MDRD) Af Amer 202, Est GFR (MDRD) Non-Af 167, BUN/Creatinine Ratio 51.5 H, Glucose 142 H, Calcium 8.7, Phosphorus 1.8 L, Total Bilirubin 0.50, Direct Bilirubin 0.12, AST 15, ALT 19, Alkaline Phosphatase 47, Total Protein 5.9 L, Albumin 2.9 L, Globulin 3.0 Micro: Microbiology 07/29/23 07:45 Sputum, Induced/Lukens Gram Stain - Final 07/29/23 07:45 Sputum, Induced/Lukens Respiratory Culture - Preliminary Presumptive C albicans 07/24/23 18:17 Blood Culture (Wb) - Anticubital Right Blood Culture - Final No growth in 5 days. 07/24/23 11:17 Blood Culture (Wb) #2 - Anticubital Left Blood Culture - Final No growth in 5 days. 07/24/23 10:35 Blood Culture (Wb) - No Site/Description Given Blood Culture - Final No growth in 5 days. 07/24/23 12:55 Sputum, Induced/Lukens Gram Stain - Final 07/24/23 12:55 Sputum, Induced/Lukens Respiratory Culture - Final Proteus mirabilis Staphylococcus aureus 07/24/23 13:05 Urine Catheter - Lundberg Urine Culture - Final Proteus mirabilis 07/24/23 13:05 Urine Catheter - [place]berg Legionella Antigen - Final 07/24/23 13:05 Urine Catheter - [place] Streptococcus pneumoniae Antigen (M - Final 07/24/23 15:55 Mucosa - Nasopharyngeal Respiratory Panel (PCR) - Final 07/24/23 10:55 Nasal Secretion SARS-CoV-2 & FLU Antigen (Rapid) - Final 07/24/23 10:55 Mucosa - Nasopharyngeal RSV RNA Qualitative (PCR) - Final 07/24/23 11:00 Stool Stool Occult Blood (CAROLYNE) - Final ABG Data ABG results: ABG 07/30/23 08:33 Specimen Type ART Sample Site R Radial pH 7.41 Bicarbonate Actual 30.6 H Total CO2 32 Base Excess 6 H O2 Saturation 91 L O2 % 30.0 ABG pCO2 47.9 H ABG pO2 60 L Arnoldo Test Positive O2 Delivery Device Adult Vent Vent Mode CPAP/PS POC PEEP 5 Physical Exam Const alert and no apparent distress Constitutional Narrative: Anxious in appearance. General Appearance: cooperative HEENT normocephalic and head/scalp atraumatic Eyes PERRL, EOMs intact bilaterally and conjunctivae normal Neck supple General: trachea midline Chest inspection of chest normal Resp Effort and Inspection: tachypneic Auscultation: diminished lung sounds Cardio S1 normal heart sound and S2 normal heart sound Rate: tachycardic Rhythm: abnormal rhythm GI normal to inspection, nondistended, normoactive bowel sounds Extremity no clubbing, cyanosis or edema Skin no rashes or lesions noted Neuro moves all extremities and no focal motor deficits Psych Activity / Motor Behavior: restless Mood & Affect: anxious Charges/Coding Visit Charges Inpatient E&M: 46473 Subs Hosp L3
[2023-07-31] MEDS: 0.9% Saline Lock 10 ML Syringe IV ×3 (07:27→17:27)
[2023-07-31] MEDS: Metoprolol Tartrate 50 MG Tablet PO ×3 (07:28→21:26)
[2023-07-31] MEDS: CHLORHEXIDINE GLUC 2% CLOTH 1 EACH TOWELETTE TOPICAL (07:28)
--- NOTE | 2023-07-31 08:46 | PCM.PN.HOSP ---
Reason for Visit Reason for Visit: Diagnoses Anemia, unspecified (07/24/23) Unspecified severe protein-calorie malnutrition (07/24/23) Other acidosis (07/24/23) Other cardiomyopathies (07/24/23) Hypotension, unspecified (07/24/23) Pneumonia due to Methicillin susceptible Staphylococcus aureus (07/24/23) Pneumonia due to other Gram-negative bacteria (07/24/23) Chronic obstructive pulmonary disease with (acute) exacerbation (07/24/23) Chronic obstructive pulmonary disease, unspecified (07/24/23) Acute and chronic respiratory failure with hypoxia (07/24/23) Acute and chronic respiratory failure with hypercapnia (07/24/23) Fever, unspecified (07/24/23) Cachexia (07/24/23) Other specified abnormalities of plasma proteins (07/24/23) Other specified abnormal findings of blood chemistry (07/24/23) Objective Data Objective Data Vital Signs: Vital Signs Temp Pulse Resp BP Pulse Ox O2 Del Method O2 Flow Rate 100.3 F H 160 H 23 H 127/76 H 95 Nasal Cannula 8 07/31/23 06:00 07/31/23 07:28 07/31/23 07:04 07/31/23 07:28 07/31/23 07:04 07/31/23 07:04 07/31/23 07:04 FiO2 28 07/31/23 06:00 Oxygen Flow Rate (L/min) 8 Oxygen Delivery Method Nasal Cannula Weight: 110 lb 10.753 oz Body Mass Index (BMI) 17.3 Intake & Output: Intake and Output for Last 24 Hours 07/29/23 07/30/23 07/31/23 23:59 23:59 23:59 Intake Total 2970.82 / 3093.42 2179.04 / 2181.97 9.11 / 9.11 Output Total 2900 / 2900 3800 / 3800 725 / 725 Balance 70.82 / 193.42 -1620.96 / -1618.03 -715.89 / -715.89 Lab / Micro Data 07/31/23 03:20 07/31/23 03:20 Labs: Laboratory Results - last 24 hr 07/31/23 03:20: WBC 13.6 H, RBC 3.48 L, Hgb 8.8 L, Hct 30.1 L, MCV 86.5, MCH 25.3 L, MCHC 29.2 L, RDW Std Deviation 51.8 H, RDW Coeff of Sami 17.8 H, Plt Count 223, MPV 11.8, Immature Gran % (Auto) 1.000 H, Neut % (Auto) 94.1 H, Lymph % (Auto) 3.2 L, [place] % (Auto) 1.5, Eos % (Auto) 0.1, Baso % (Auto) 0.1, Absolute Neuts (auto) 12.8 H, Absolute Lymphs (auto) 0.44 L, Nucleated RBC % 0, Differential Comment SCANNED, Sodium 142, Potassium 3.7, Chloride 103, Carbon Dioxide 35.0 H, Anion Gap 4 L, BUN 21 H, Creatinine 0.41 L, Estim Creat Clear Calc 118.61, Est GFR (MDRD) Af Amer 202, Est GFR (MDRD) Non-Af 167, BUN/Creatinine Ratio 51.5 H, Glucose 142 H, Calcium 8.7, Phosphorus 1.8 L, Total Bilirubin 0.50, Direct Bilirubin 0.12, AST 15, ALT 19, Alkaline Phosphatase 47, Total Protein 5.9 L, Albumin 2.9 L, Globulin 3.0 Micro: Microbiology 07/29/23 07:45 Sputum, Induced/Lukens Gram Stain - Final 07/29/23 07:45 Sputum, Induced/Lukens Respiratory Culture - Preliminary Presumptive C albicans 07/24/23 18:17 Blood Culture (Wb) - Anticubital Right Blood Culture - Final No growth in 5 days. 07/24/23 11:17 Blood Culture (Wb) #2 - Anticubital Left Blood Culture - Final No growth in 5 days. 07/24/23 10:35 Blood Culture (Wb) - No Site/Description Given Blood Culture - Final No growth in 5 days. 07/24/23 12:55 Sputum, Induced/Lukens Gram Stain - Final 07/24/23 12:55 Sputum, Induced/Lukens Respiratory Culture - Final Proteus mirabilis Staphylococcus aureus 07/24/23 13:05 Urine Catheter - Lundberg Urine Culture - Final Proteus mirabilis 07/24/23 13:05 Urine Catheter - Lundberg Legionella Antigen - Final 07/24/23 13:05 Urine Catheter - Lundberg Streptococcus pneumoniae Antigen (M - Final 07/24/23 15:55 Mucosa - Nasopharyngeal Respiratory Panel (PCR) - Final 07/24/23 10:55 Nasal Secretion SARS-CoV-2 & FLU Antigen (Rapid) - Final 07/24/23 10:55 Mucosa - Nasopharyngeal RSV RNA Qualitative (PCR) - Final 07/24/23 11:00 Stool Stool Occult Blood (CAROLYNE) - Final Physical Exam Narrative Seen and examined. Overnight events reviewed. Patient is extubated on 07/30/2023. On 8 L of oxygen. Net 4 L positive fluid balance. Physical exam General: Alert, Oriented x3, Cooperative, BMI 17.3 kg/m? HEENT: Atraumatic, PERRLA, EOMI, Normocephalic Oral: No Gingival or Mucosal Lesions/ Ulcerations Neck: Supple, No JVD, Negative Carotid Bruits Lungs: Air entry severely diminished in bilateral lung bases. Bilateral expiratory rhonchi Cardiovascular: A-fib rhythm, Normal S1, Normal S2, No murmurs Abdomen: Bowel Sounds Present, Soft, Non Tender, Non-Distended : No renal angle tenderness. No suprapubic tenderness. Extremities: No edema, Capillary Refill Less than 3 Seconds Skin: No rashes, No breakdown Musculoskeletal: No Tenderness to Palpation of Joints or Extremities. Moderate chronic muscle atrophy of extremities including thighs and calf muscles Neurological: Cranial nerves II-XII grossly intact, DTR 2+/4. No acute focal neurological deficit. Psych/Mental Status: Flat affect. Assessment & Plan Assessment/Plan (1) Elevated brain natriuretic peptide (BNP) level: (2) Stage 4 very severe COPD by GOLD classification: (3) Elevated troponin I level: (4) Severe malnutrition: (5) Pulmonary cachexia due to COPD: (6) Respiratory acidosis: (7) Acute anemia: (8) Hypotension: (9) Staphylococcus aureus pneumonia: (10) Proteus pneumonia: (11) Fever: PLAN: Plan Acute on chronic hypoxic and hypercapnic respiratory failure secondary to acute exacerbation of COPD/Staph aureus and Proteus pneumonia -Placed on BiPAP on presentation however pH did not improve after 2 hours on BiPAP and therefore we intubated her for persistent hypercapnia and somnolence -Intubated 07/23/2023 -Hopeful for extubation today -Patient remains on mechanical ventilation with an FiO2 of 35% -Thus far doing well and her breathing trial -At baseline patient uses 2.5 L with exertion only -Sputum cultures are positive for Proteus and Staph aureus (MSSA) -Solu-Medrol changed to prednisone. 07/31: Patient was extubated on 07/30/2023. Currently on oxygen through nasal cannula and BiPAP at night. 1 week of Levaquin will be completed on 08/01/2023. On DuoNeb. Diuresis as per tolerated. Continue aggressive bronchopulmonary hygiene Fever, Tmax 101.4 Fahrenheit. Patient is covered with antibiotics. Was thought may be related to Precedex. Precedex is discontinued. UA was not consistent with infection -MRSA PCR is negative so we will discontinue bank Troponin elevation -Type II NSTEMI secondary to acute respiratory failure as noted above -Echocardiogram shows an EF of 40 to 45% and diffuse mitral valve thickening which is stable compared to previous -No acute ischemia noted on EKG Acute on chronic anemia - hemoglobin is around 8.8/30.1.MCV normal. Reticulocyte count 223,000. No obvious sign for acute GI bleed. PAF -Patient has history of paroxysmal atrial fibrillation that especially worsens when she is in respiratory distress as anticipated property assessment monitor shows patient is in A-fib. -Continue metoprolol to 50 mg p.o. twice daily -Continue home apixaban HFrEF-nonischemic cardiomyopathy -Last echocardiogram from 07/10/2022 shows an EF of 40% with mild global hypokinesis of the LV and mild to moderate mitral valve insufficiency -Echocardiogram stable with an EF of 40 to 45% with moderate mitral valve insufficiency -Hold home lisinopril -Continue metoprolol to 50 twice daily -Would recommend outpatient cardiology follow-up with outpatient noninvasive stress testing after stabilized clinically if echo shows no wall motion abnormality -Continue Lasix 20 mg IV twice daily -Patient is diuresing well and this will improve the likelihood of her getting extubated Severe malnutrition -Likely related to pulmonary cachexia -Continue tube feed and advance as able -Dietitian following -BMI is 18 -Supplements to be added once respiratory status is stable and patient is able to take a p.o. diet COPD Gold stage IV -Baseline FEV1 was 25% predicted -Wears 2.5 L of oxygen at baseline -Continue supplemental oxygen as noted -Hold inhalers -Pulmonary toilet as above -Follows with Dr. Enamorado as an outpatient -Still smoking -A questionable whether or not patient will be extubated due to the severity of her lung disease at baseline and this has been discussed previously with the patient with the result of her always wanting to be intubated as she was on admission Hypertension -Hold home lisinopril -Continue metoprolol to 50 mg p.o. twice daily -As needed hydralazine Tobacco abuse -Patient with ongoing tobacco abuse -Recommend cessation Depression -Patient is no longer taking anything for this DVT prophylaxis -Continue apixaban CODE STATUS -Full code is reviewed with the prior to leaving the emergency department by the emergency department physician Charges/Coding Visit Charges Inpatient E&M: 14530 Subs Hosp L3
[2023-07-31] MEDS: predniSONE 20 MG Tablet 40 MG PO (09:51)
[2023-07-31] MEDS: Furosemide 20 MG/2 ML VIAL IV ×2 (09:52→17:27)
[2023-07-31] MEDS: APIXABAN 5 MG TABLET PO ×2 (09:52→21:26)
[2023-07-31] MEDS: OLANZapine 5 MG/TAB TAB.RAPDIS PO ×2 (09:53→21:26)
[2023-07-31] MEDS: Polyethylene Glycol 3350 17 GM PACKET PO (09:54)
[2023-07-31] MEDS: Senna/Docusate Sodium 1 Tablet 2 TABLET PO ×2 (09:56→21:29)
[2023-07-31] MEDS: Pantoprazole Sodium 40 MG in 0.9% Normal Saline (100mL MB+) 100 ML 330 MG IV (10:01)
[2023-07-31] MEDS: levoFLOXacin IV 500 MG/100 ML BAG 100 MG IV (10:27)
--- NOTE | 2023-07-31 10:41 | CASEMGMT ---
Discharge Planning A list of?SNF providers including quality and resource use data and consistent with the patient's preferred geographic region, medical needs, and insurance network was created in [employer] [facility].? This list was provided to the SW. Sheridan Cox Discharge Planning Asst.
--- NOTE | 2023-07-31 11:22 | CASEMGMT ---
Social Work SW participated in ICU rounds, pt was extubated yesterday. SW reviewed therapy, then spoke w/pt in room. SW initially asked about POA, she states she has done the papers, her son, daughter and boyfriend are who would help her w/decisions. She does not know where the papers are. We spoke about discharge plan, SW inquired about going somewhere for rehab. Pt states no, she will go home. Pt not agreeable to SNF referral at this time. SW asked permission to call daughter Bettye pt agreeable. SW called [facility]. SW inquired about POA papers. She states she does not think pt ever completed the documents, she and pt's son help w/decisions. SW explained without the papers this is who it would be, SW did verify that they are her only two children. Bettye explained that pt had stayed w/her for 5 months, went back to live w/her significant other Vin in July of 2022. She states pt was doing very well when staying w/her, and now she feels Amaneul and his family enable pt, and she is not moving as much, not as active. We spoke about pt going somewhere for rehab, SW explained she did not move very well with therapy, explained pt stating she will go home. Bettye in favor of it but not surprised pt would not be in agreement. She is going to speak w/pt's son about it also, and speak w/pt about it also. SW inquired if her significant other would be in agreement, she states he will go along w/whatever the pt says, but may see the benefit. She states pt is worried she would go and not ever get out. SW explained will go in to speak w/pt again and significant other who is here. SW also let her know would leave a list of facilities in the room for pt's daughter. SW spoke w/pt again and significant other Vin. SW spoke w/them again about going somewhere for rehab. Both Vin and pt stating no, that pt will go home. Vin states pt lives w/him and his parents and they can help pt with whatever she needs, she is never alone. He states his parents are in good health and already were helping her. SW did explain leaving a list of SNF in the room in the event they change their mind. SNF list via [employer] in pt's insurance network, preferred geographic area and complete with quality and resource use data left in the room. Vin asked about outpt PT and we also spoke about home health. They seem open to both of these. SW explained that we will continue to follow, will see how therapy goes the next couple of days and may need to reassess if pt can go home. Vin also states that pt wants to do POA papers and make him her POA. SW explained that we can talk w/pt about this, but not today. Pt agreed she does not want to complete the papers today. SW will speak w/pt about this as time allows when Vin is not in the room, as this is different than what pt told SW prior to Vin's arrival, that daughter, son and Vin are all POAs. Plan: TBD. SW/CM will continue to follow for appropriate referrals when pt ready for discharge. NICOLE Caal
[2023-07-31] MEDS: Acetaminophen 325 MG Tablet 650 MG PO (11:28)
[2023-07-31] MEDS: Ipratropium 0.5 MG/2.5 ML SOLUTION INHALATION ×2 (15:43→19:08)
[2023-07-31] MEDS: Ensure Plus High Protein 120 ML LIQUID PO ×2 (17:27→21:28)
[2023-08-01] VITALS (30 sets, daily range): BP systolic 103–156; BP diastolic 59–131; PULSE 88–154; RESP 20–35; TEMP 37.2–37.8; O2SAT 90–100; BMI 16.4
[2023-08-01 04:46] LABS: Absolute Lymphocyte Count 1.19 X10^3/uL (0.83-4.51); Absolute Neutrophil Count 10.3 X10^3/uL (2.0-7.7); Basophil# 0.02 X10^3/uL; Basophil% 0.2 % (0-1); Eosinophils% 0.8 % (0-5); Hematocrit 31.9 % (37-47); Hemoglobin 9.2 g/dL (12.0-15.0); Lymphocyte # 1.19 X10^3/ul (0.83-4.51); Lymphocyte % 9.1 % (19-41); Mean Corp Hgb Conc 28.8 g/dL (32-36); Mean Corpuscular Hgb 24.7 pg (27.0-32.0); Mean Corpuscular Volume 85.5 fL (81-99); Mean Platelet Vol. 10.5 fl (6.2-12.0); Monocyte% 10.7 % (0-10); NRBC Flagged by Analyzer 0 % (0-5); Neutrophil # 10.26 X10^3/uL (2.7-7.7); Neutrophil % 78.4 % (47-70); Platelet Count 267 K/mm3 (150-450); RBC Distribution Width CV 18.1 % (11.6-14.6); RBC Distribution Width SD 53.2 fl (35.1-43.9); Red Blood Count 3.73 M/mm3 (4.2-5.4); White Blood Count 13.1 K/mm3 (4.4-11.0)
[2023-08-01 05:02] LABS: Anion Gap 4 (5-15); BUN 17 mg/dL (7-18); BUN/Creat Ratio 46.8 RATIO (10-20); Calcium,Total 8.7 mg/dL (8.5-10.1); Chloride 103 mmol/L (98-107); Creatinine, Serum 0.36 mg/dL (0.55-1.02); EST Glomerular Filtration Rate 191 mL/min (>60); Est Glom Filt Rate - Afr Amer 231 mL/min (>60); Estimated Creatinine Clearance 125.11 ml/min; Glucose 109 mg/dL (74-106); Sodium Level 145 mmol/L (136-145)
[2023-08-01] MEDS: 0.9% Saline Lock 10 ML Syringe IV ×3 (06:39→17:03)
[2023-08-01] MEDS: Metoprolol Tartrate 50 MG Tablet PO ×2 (06:39→13:22)
[2023-08-01] MEDS: CHLORHEXIDINE GLUC 2% CLOTH 1 EACH TOWELETTE TOPICAL (06:40)
[2023-08-01] MEDS: Ipratropium 0.5 MG/2.5 ML SOLUTION INHALATION ×4 (07:15→22:55)
--- NOTE | 2023-08-01 07:27 | PN.CC_ITS ---
Assessment & Plan Assessment/Plan (1) COPD with acute exacerbation: (2) Pulmonary cachexia due to COPD: (3) Acute on chronic respiratory failure with hypoxia and hypercapnia: (4) Stage 4 very severe COPD by GOLD classification: (5) Non-ischemic cardiomyopathy: PLAN: Plan RECOMMENDATIONS: 1. Wean supplemental oxygen to maintain saturations above 90%. 2. Continue scheduled Atrovent. 3. Continue Levaquin to complete 7 days of therapy. 4. Diuresis as tolerated by hemodynamics and renal function. 5. Continue Eliquis as ordered. 6. Continue prednisone, with plans for a taper at discharge. 7. Continue beta-julianna as ordered. 8. Symptomatic management of anxiety. 9. The patient is medically stable for transfer out of the intensive care unit. IMPRESSIONS: 1. Acute on chronic combined respiratory failure secondary to COPD exacerbation The patient has advanced lung disease at baseline with continued smoking and likely progression of disease. Viral panel was negative. Infiltrates will be difficult to evaluate as patient has very little lung parenchyma. The patient was ultimately able to be extubated and is doing well on supplemental oxygen via nasal cannula. Plan to continue supportive care including antibiotics, bronchodilators and prednisone. Wean supplemental oxygen to maintain saturations at or above 90%. Continue AVAPS therapy nightly. 2. Elevated troponin/chronic systolic CHF Most likely secondary to demand ischemia in the setting of #1. Continue supportive care. 3. Severe protein malnutrition The patient has significantly reduced BMI and likely has an element of pulmonary cachexia. Continue nutritional support per dietary recommendations. 4. Tobacco abuse/hypertension/debility/anemia Complicates care, management, recovery and prognosis. PT/OT to work with the patient. The patient will need to follow-up with her primary director of graduate medical education, Dr. Enamorado, upon discharge from the hospital. This note was generated with [employer] dictation software. It may contain incorrect words, spelling, and punctuation that were not noted in checking the note before signing. Subjective Subjective The patient was seen and examined at the bedside this morning. Events from the last 24 hours have been reviewed. The patient is currently afebrile, hemodynamically stable and maintaining appropriate oxygen saturations on 8 L/min via nasal cannula. The patient has remained anxious overnight. Potassium is low this morning at 3.0. The patient did confirm that she was previously utilizing somewhere between 2 and 3 L/min of supplemental oxygen at her baseline. Objective Data Objective Data The patient's most recent lab work, culture data and imaging studies have all been personally reviewed. Surface echocardiogram from July 25 demonstrated normal LV size and thickness with an ejection fraction of 40 to 45%. Sputum culture dated July 24 was positive for Proteus mirabilis and Staph aureus. Vital Signs: Vital Signs Temp Pulse Resp BP Pulse Ox O2 Del Method O2 Flow Rate 99.7 F H 137 H 20 H 156/87 H 95 Nasal Cannula 8 08/01/23 07:00 08/01/23 07:16 08/01/23 07:16 08/01/23 07:00 08/01/23 07:16 08/01/23 07:16 08/01/23 07:16 FiO2 28 07/31/23 19:08 Oxygen Flow Rate (L/min) 8 Oxygen Delivery Method Nasal Cannula Weight: 104 lb 15.04 oz Body Mass Index (BMI) 16.4 Intake & Output: Intake and Output for Last 24 Hours 07/30/23 07/31/23 08/01/23 23:59 23:59 23:59 Intake Total 2179.04 / 2181.97 699.11 / 699.11 Output Total 3800 / 3800 3175 / 3175 200 / 200 Balance -1620.96 / -1618.03 -2475.89 / -2475.89 -200 / -200 Lab / Micro Data Attestation: I reviewed the patient's lab results. 08/01/23 04:35 08/01/23 04:35 Labs: Laboratory Results - last 24 hr 08/01/23 04:35: WBC 13.1 H, RBC 3.73 L, Hgb 9.2 L, Hct 31.9 L, MCV 85.5, MCH 24.7 L, MCHC 28.8 L, RDW Std Deviation 53.2 H, RDW Coeff of Sami 18.1 H, Plt Count 267, MPV 10.5, Immature Gran % (Auto) 0.800, Neut % (Auto) 78.4 H, Lymph % (Auto) 9.1 L, [place] % (Auto) 10.7 H, Eos % (Auto) 0.8, Baso % (Auto) 0.2, Absolute Neuts (auto) 10.3 H, Absolute Lymphs (auto) 1.19, Nucleated RBC % 0, Sodium 145, Potassium 3.0 L, Chloride 103, Carbon Dioxide 38.0 H, Anion Gap 4 L, BUN 17, Creatinine 0.36 L, Estim Creat Clear Calc 125.11, Est GFR (MDRD) Af Amer 231, Est GFR (MDRD) Non-Af 191, BUN/Creatinine Ratio 46.8 H, Glucose 109 H, Calcium 8.7 Micro: Microbiology 07/29/23 07:45 Sputum, Induced/Lukens Gram Stain - Final 07/29/23 07:45 Sputum, Induced/Lukens Respiratory Culture - Final Presumptive C albicans 07/29/23 08:00 Blood Culture (Wb) - Right Forearm Blood Culture - Preliminary No growth in 48 hours. 07/29/23 07:50 Blood Culture (Wb) - Pic Blood Culture - Preliminary No growth in 48 hours. 07/24/23 18:17 Blood Culture (Wb) - Anticubital Right Blood Culture - Final No growth in 5 days. 07/24/23 11:17 Blood Culture (Wb) #2 - Anticubital Left Blood Culture - Final No growth in 5 days. 07/24/23 10:35 Blood Culture (Wb) - No Site/Description Given Blood Culture - Final No growth in 5 days. 07/24/23 12:55 Sputum, Induced/Lukens Gram Stain - Final 07/24/23 12:55 Sputum, Induced/Lukens Respiratory Culture - Final Proteus mirabilis Staphylococcus aureus 07/24/23 13:05 Urine Catheter - Lundberg Urine Culture - Final Proteus mirabilis 07/24/23 13:05 Urine Catheter - Lundberg Legionella Antigen - Final 07/24/23 13:05 Urine Catheter - Lundberg Streptococcus pneumoniae Antigen (M - Final 07/24/23 15:55 Mucosa - Nasopharyngeal Respiratory Panel (PCR) - Final 07/24/23 10:55 Nasal Secretion SARS-CoV-2 & FLU Antigen (Rapid) - Final 07/24/23 10:55 Mucosa - Nasopharyngeal RSV RNA Qualitative (PCR) - Final 07/24/23 11:00 Stool Stool Occult Blood (CAROLYNE) - Final ABG Data ABG results: ABG 07/30/23 08:33 Specimen Type ART Sample Site R Radial pH 7.41 Bicarbonate Actual 30.6 H Total CO2 32 Base Excess 6 H O2 Saturation 91 L O2 % 30.0 ABG pCO2 47.9 H ABG pO2 60 L Arnoldo Test Positive O2 Delivery Device Adult Vent Vent Mode CPAP/PS POC PEEP 5 Physical Exam Const alert and no apparent distress Constitutional Narrative: Anxious in appearance. Intermittently confused. General Appearance: cooperative HEENT normocephalic and head/scalp atraumatic Eyes PERRL, EOMs intact bilaterally and conjunctivae normal Neck supple General: trachea midline Chest inspection of chest normal Resp Effort and Inspection: tachypneic Auscultation: diminished lung sounds Cardio S1 normal heart sound and S2 normal heart sound Rate: tachycardic Rhythm: abnormal rhythm GI normal to inspection, nondistended, normoactive bowel sounds Extremity no clubbing, cyanosis or edema Skin no rashes or lesions noted Neuro moves all extremities and no focal motor deficits Psych Mood & Affect: anxious Charges/Coding Visit Charges Inpatient E&M: 86983 Subs Hosp L2
[2023-08-01] MEDS: Pantoprazole Sodium 40 MG in 0.9% Normal Saline (100mL MB+) 100 ML 330 MG IV (08:04)
[2023-08-01] MEDS: Senna/Docusate Sodium 1 Tablet 2 TABLET PO ×2 (08:05→20:52)
[2023-08-01] MEDS: levoFLOXacin IV 500 MG/100 ML BAG 100 MG IV (08:05)
[2023-08-01] MEDS: OLANZapine 5 MG/TAB TAB.RAPDIS PO ×2 (08:06→20:50)
[2023-08-01] MEDS: APIXABAN 5 MG TABLET PO ×2 (08:06→20:50)
[2023-08-01] MEDS: Furosemide 20 MG/2 ML VIAL IV ×2 (08:06→17:03)
[2023-08-01] MEDS: Polyethylene Glycol 3350 17 GM PACKET PO (08:06)
[2023-08-01] MEDS: Potassium Chloride Oral Tablet 20 MEQ 60 MEQ PO (08:06)
[2023-08-01] MEDS: predniSONE 20 MG Tablet 40 MG PO (08:06)
[2023-08-01] MEDS: Ensure Plus High Protein 120 ML LIQUID PO ×2 (08:22→13:22)
--- NOTE | 2023-08-01 09:11 | CASEMGMT ---
SW met with patient this am. SW introduced self and role at [facility]. SW asked patient who she want to be her Healthcare Power of Public Health. Patient said she already talked about it with the social director yesterday. SW told patient the documents at not completed. SW asked if patient would like SW to complete the documents with her. Patient declined. SW asked patient if she wanted her daughter to be her Healthcare Power of Public Health. Patient said, Maybe. SW told patient again that if she does not have documents completed her children will be the decision makers and not her significant other. Patient verbalized understanding. SW strongly encouraged patient to complete documents while at [facility]. Jaimee MIRANDA
[2023-08-01] MEDS: Acetaminophen 325 MG Tablet 650 MG PO (13:58)
--- NOTE | 2023-08-01 14:35 | PN.HOSP_ITS ---
Reason for Visit Reason for Visit: Diagnoses Anemia, unspecified (07/24/23) Unspecified severe protein-calorie malnutrition (07/24/23) Other acidosis (07/24/23) Other cardiomyopathies (07/24/23) Hypotension, unspecified (07/24/23) Pneumonia due to Methicillin susceptible Staphylococcus aureus (07/24/23) Pneumonia due to other Gram-negative bacteria (07/24/23) Chronic obstructive pulmonary disease with (acute) exacerbation (07/24/23) Chronic obstructive pulmonary disease, unspecified (07/24/23) Acute and chronic respiratory failure with hypoxia (07/24/23) Acute and chronic respiratory failure with hypercapnia (07/24/23) Fever, unspecified (07/24/23) Cachexia (07/24/23) Other specified abnormalities of plasma proteins (07/24/23) Other specified abnormal findings of blood chemistry (07/24/23) Objective Data Objective Data Vital Signs: Vital Signs Temp Pulse Resp BP Pulse Ox O2 Del Method O2 Flow Rate 100 F H 132 H 28 H 151/59 H 94 High Flow 8 08/01/23 13:00 08/01/23 13:22 08/01/23 13:00 08/01/23 13:00 08/01/23 13:00 08/01/23 13:00 08/01/23 13:00 FiO2 28 07/31/23 19:08 Oxygen Flow Rate (L/min) 8 Oxygen Delivery Method High Flow Weight: 104 lb 15.04 oz Body Mass Index (BMI) 16.4 Intake & Output: Intake and Output for Last 24 Hours 07/30/23 07/31/23 08/01/23 23:59 23:59 23:59 Intake Total 2179.04 / 2181.97 699.11 / 699.11 550 / 550 Output Total 3800 / 3800 3175 / 3175 200 / 200 Balance -1620.96 / -1618.03 -2475.89 / -2475.89 350 / 350 Lab / Micro Data 08/01/23 04:35 08/01/23 04:35 Labs: Laboratory Results - last 24 hr 08/01/23 04:35: WBC 13.1 H, RBC 3.73 L, Hgb 9.2 L, Hct 31.9 L, MCV 85.5, MCH 24.7 L, MCHC 28.8 L, RDW Std Deviation 53.2 H, RDW Coeff of Sami 18.1 H, Plt Count 267, MPV 10.5, Immature Gran % (Auto) 0.800, Neut % (Auto) 78.4 H, Lymph % (Auto) 9.1 L, [place] % (Auto) 10.7 H, Eos % (Auto) 0.8, Baso % (Auto) 0.2, Absolute Neuts (auto) 10.3 H, Absolute Lymphs (auto) 1.19, Nucleated RBC % 0, Sodium 145, Potassium 3.0 L, Chloride 103, Carbon Dioxide 38.0 H, Anion Gap 4 L, BUN 17, Creatinine 0.36 L, Estim Creat Clear Calc 125.11, Est GFR (MDRD) Af Amer 231, Est GFR (MDRD) Non-Af 191, BUN/Creatinine Ratio 46.8 H, Glucose 109 H, Calcium 8.7 Micro: Microbiology 07/29/23 07:45 Sputum, Induced/Lukens Gram Stain - Final 07/29/23 07:45 Sputum, Induced/Lukens Respiratory Culture - Final Presumptive C albicans 07/29/23 08:00 Blood Culture (Wb) - Right Forearm Blood Culture - Preliminary No growth in 48 hours. 07/29/23 07:50 Blood Culture (Wb) - Pic Blood Culture - Preliminary No growth in 48 hours. 07/24/23 18:17 Blood Culture (Wb) - Anticubital Right Blood Culture - Final No growth in 5 days. 07/24/23 11:17 Blood Culture (Wb) #2 - Anticubital Left Blood Culture - Final No growth in 5 days. 07/24/23 10:35 Blood Culture (Wb) - No Site/Description Given Blood Culture - Final No growth in 5 days. 07/24/23 12:55 Sputum, Induced/Lukens Gram Stain - Final 07/24/23 12:55 Sputum, Induced/Lukens Respiratory Culture - Final Proteus mirabilis Staphylococcus aureus 07/24/23 13:05 Urine Catheter - Lundberg Urine Culture - Final Proteus mirabilis 07/24/23 13:05 Urine Catheter - Lundberg Legionella Antigen - Final 07/24/23 13:05 Urine Catheter - Lundberg Streptococcus pneumoniae Antigen (M - Final 07/24/23 15:55 Mucosa - Nasopharyngeal Respiratory Panel (PCR) - Final 07/24/23 10:55 Nasal Secretion SARS-CoV-2 & FLU Antigen (Rapid) - Final 07/24/23 10:55 Mucosa - Nasopharyngeal RSV RNA Qualitative (PCR) - Final 07/24/23 11:00 Stool Stool Occult Blood (CAROLYNE) - Final Physical Exam Narrative Seen and examined. Seen and examined. Low-grade fever, sinus tachycardia. Patient is extubated on 07/30/2023. On 8 L of oxygen. Physical exam General: Alert, Oriented x3, Cooperative, BMI 17.3 kg/m?, severe malnutrition. HEENT: Atraumatic, PERRLA, EOMI, Normocephalic Oral: No Gingival or Mucosal Lesions/ Ulcerations Neck: Supple, No JVD, Negative Carotid Bruits Lungs: Air entry severely diminished in bilateral lung bases. Bilateral expiratory rhonchi. Dyspnea at rest Cardiovascular: A-fib rhythm, Normal S1, Normal S2, No murmurs Abdomen: Bowel Sounds Present, Soft, Non Tender, Non-Distended : No renal angle tenderness. No suprapubic tenderness. Extremities: No edema, Capillary Refill Less than 3 Seconds Skin: No rashes, No breakdown Musculoskeletal: No Tenderness to Palpation of Joints or Extremities. Moderate chronic muscle atrophy of extremities including thighs and calf muscles Neurological: Cranial nerves II-XII grossly intact, DTR 2+/4. No acute focal neurological deficit. Psych/Mental Status: Flat affect. Const alert and no apparent distress; Negative for oriented x3, average body habitus, healthy appearing or well nourished Constitutional Narrative: Intubated, upper middle-aged, severely cachectic white female who appears much older than stated age, lying in bed on the ventilator awake and interacting appropriately, follows all commands General Appearance: uncooperative Orientation / Consciousness: confused, disoriented and lethargic HEENT normocephalic, head/scalp atraumatic and moist oral mucous membranes Eyes PERRL and conjunctivae normal Eyes Narrative: No scleral icterus Neck no lymphadenopathy and supple Neck Narrative: Trachea midline, no thyroid enlargement Resp normal respiratory effort, no retractions, no use of accessory muscles and No clear to auscultation bilaterally Resp Narrative: Currently intubated, diminished but clear Auscultation: Negative for rales, rhonchi or wheezes Cardio regular rate, regular rhythm, S1 normal heart sound, S2 normal heart sound, no murmurs, no rub, no gallops and no clicks Cardio Narrative: Mild tachycardia, irregular but not A-fib GI normal to inspection, nondistended, normoactive bowel sounds, soft to palpation and non-tender GI Narrative: Markedly scaphoid abdomen Extremity Extremity Narrative: No edema, severely diminished lean muscle mass, no cyanosis, clubbing is present Neuro No oriented x3 and moves all extremities Neuro Narrative: Spontaneously moves all 4 extremities, follows commands and interacts appropri ately Sensorium / Orientation: awake and alert Speech: Negative for speech normal Psych Psych Narrative: Unable to assess Assessment & Plan Assessment/Plan (1) Severe malnutrition: (2) Acute anemia: (3) Hypotension: (4) Staphylococcus aureus pneumonia: (5) Proteus pneumonia: (6) Stage 4 very severe COPD by GOLD classification: (7) Respiratory acidosis: (8) Fever: PLAN: Plan Acute on chronic hypoxic and hypercapnic respiratory failure secondary to acute exacerbation of COPD/Staph aureus and Proteus pneumonia -Placed on BiPAP on presentation however pH did not improve after 2 hours on BiPAP and therefore we intubated her for persistent hypercapnia and somnolence -Intubated 07/23/2023 -Hopeful for extubation today -Patient remains on mechanical ventilation with an FiO2 of 35% -Thus far doing well and her breathing trial -At baseline patient uses 2.5 L with exertion only -Sputum cultures are positive for Proteus and Staph aureus (MSSA) -Solu-Medrol changed to prednisone. 07/31: Patient was extubated on 07/30/2023. Currently on oxygen through nasal cannula and BiPAP at night. 1 week of Levaquin will be completed on 08/01/2023. On DuoNeb. Diuresis as per tolerated. Continue aggressive bronchopulmonary hygiene 08/01: Patient on 8 L of oxygen, short of breath, dyspnea at rest. Sinus tachycardia with arrhythmia heart rate in 130s. Patient on metoprolol 50 mg 3 times daily. Advised to put on BiPAP/AVAPS. Fever, Tmax 101.4 Fahrenheit. Patient is covered with antibiotics. Was thought may be related to Precedex. Precedex is discontinued. UA was not consistent with infection -MRSA PCR is negative so we will discontinue bank 08/02: Patient is still has a low-grade fever. Temperature around 99's to 100 Fahrenheit. Troponin elevation -Type II NSTEMI secondary to acute respiratory failure as noted above -Echocardiogram shows an EF of 40 to 45% and diffuse mitral valve thickening which is stable compared to previous -No acute ischemia noted on EKG Acute on chronic anemia - hemoglobin is around 8.8/30.1.MCV normal. Reticulocyte count 223,000. No obvious sign for acute GI bleed. 08/01: Hemoglobin improving better. H&H 9.2/32%. PAF -Patient has history of paroxysmal atrial fibrillation that especially worsens when she is in respiratory distress as anticipated pvc monitor shows patient is in A-fib. -Continue metoprolol to 50 mg p.o. 3 times daily -Continue home apixaban 08/01: Metoprolol dose increased to 75 mg 3 times daily. Currently in sinus rhythm. Patient is sinus tachycardia with arrhythmia most likely driven by acute hypoxic respiratory failure. HFrEF-nonischemic cardiomyopathy -Last echocardiogram from 07/10/2022 shows an EF of 40% with mild global hypokinesis of the LV and mild to moderate mitral valve insufficiency -Echocardiogram stable with an EF of 40 to 45% with moderate mitral valve insufficiency -Hold home lisinopril -Continue metoprolol to 50 twice daily -Would recommend outpatient cardiology follow-up with outpatient noninvasive stress testing after stabilized clinically if echo shows no wall motion a bnormality -Continue Lasix 20 mg IV twice daily -Patient is diuresing well and this will improve the likelihood of her getting extubated Severe malnutrition -Likely related to pulmonary cachexia -Continue tube feed and advance as able -Dietitian following -BMI is 18 -Supplements to be added once respiratory status is stable and patient is able to take a p.o. diet COPD Gold stage IV -Baseline FEV1 was 25% predicted -Wears 2.5 L of oxygen at baseline -Continue supplemental oxygen as noted -Hold inhalers -Pulmonary toilet as above -Follows with Dr. Enamorado as an outpatient -Still smoking -A questionable whether or not patient will be extubated due to the severity of her lung disease at baseline and this has been discussed previously with the patient with the result of her always wanting to be intubated as she was on admission Hypertension -Hold home lisinopril -Continue metoprolol to 50 mg p.o. twice daily -As needed hydralazine Tobacco abuse -Patient with ongoing tobacco abuse -Recommend cessation Depression -Patient is no longer taking anything for this DVT prophylaxis -Continue apixaban CODE STATUS -Full code is reviewed with the prior to leaving the emergency departm ent by the emergency department physician Charges/Coding Visit Charges Inpatient E&M: 87910 Subs Hosp L3
[2023-08-01] MEDS: Metoprolol Tartrate 50 MG Tablet 75 MG PO (20:49)
[2023-08-02] VITALS (26 sets, daily range): BP systolic 82–161; BP diastolic 55–108; PULSE 101–151; RESP 12–37; TEMP 36.7–37.6; O2SAT 80–98; BMI 16.0
--- NOTE | 2023-08-02 00:41 | NURSING ---
Pt continuously attempting to take off pulse ox and wiggle around in the bed and lay sideways in the bed tonight. Pt denies wanting to be repositioned at this time and wants to lay sideways in the bed. Oxygen off pt, reapplied at this time.
[2023-08-02] MEDS: Metoprolol Tartrate 50 MG Tablet 75 MG PO ×3 (04:40→20:50)
[2023-08-02] MEDS: Ipratropium 0.5 MG/2.5 ML SOLUTION INHALATION ×4 (07:36→19:10)
--- NOTE | 2023-08-02 08:10 | PCM.PN.INT ---
Assessment & Plan Assessment/Plan (1) COPD with acute exacerbation: (2) Pulmonary cachexia due to COPD: (3) Acute on chronic respiratory failure with hypoxia and hypercapnia: (4) Stage 4 very severe COPD by GOLD classification: (5) Non-ischemic cardiomyopathy: PLAN: Plan RECOMMENDATIONS: 1. Wean supplemental oxygen to maintain saturations above 90%. 2. Continue scheduled Atrovent. 3. Diuresis as tolerated by hemodynamics and renal function. 4. Continue Eliquis as ordered. 5. Continue prednisone, with plans for a taper at discharge. 6. Continue beta-julianna as ordered. 7. Discontinue Zyprexa and start BuSpar for anxiety. IMPRESSIONS: 1. Acute on chronic combined respiratory failure secondary to COPD exacerbation The patient has advanced lung disease at baseline with continued smoking and likely progression of disease. Viral panel was negative. Infiltrates will be difficult to evaluate as patient has very little lung parenchyma. The patient was ultimately able to be extubated and is doing well on supplemental oxygen via nasal cannula. Plan to continue supportive care including antibiotics, bronchodilators and prednisone. Wean supplemental oxygen to maintain saturations at or above 90%. Continue AVAPS therapy nightly. 2. Elevated troponin/chronic systolic CHF Most likely secondary to demand ischemia in the setting of #1. Continue supportive care. 3. Severe protein malnutrition The patient has significantly reduced BMI and likely has an element of pulmonary cachexia. Continue nutritional support per dietary recommendations. 4. Tobacco abuse/hypertension/debility/anemia Complicates care, management, recovery and prognosis. PT/OT to work with the patient. The patient will need to follow-up with her primary contour path tape mill operator, Dr. Enamorado, upon discharge from the hospital. This note was generated with [employer] dictation software. It may contain incorrect words, spelling, and punctuation that were not noted in checking the note before signing. Subjective Subjective The patient was seen and examined at the bedside this morning. Events from the last 24 hours have been reviewed. The patient is currently afebrile, hemodynamically stable and maintaining appropriate oxygen saturations on 8 L/min via nasal cannula. The patient is documented to be overall net +1.4 L for the hospitalization. Objective Data Objective Data The patient's most recent lab work, culture data and imaging studies have all been personally reviewed. Surface echocardiogram from July 25 demonstrated normal LV size and thickness with an ejection fraction of 40 to 45%. Sputum culture dated July 24 was positive for Proteus mirabilis and Staph aureus. Vital Signs: Vital Signs Temp Pulse Resp BP Pulse Ox O2 Del Method O2 Flow Rate 99.0 F 115 H 28 H 129/108 H 93 High Flow 8 08/02/23 07:00 08/02/23 07:38 08/02/23 07:38 08/02/23 07:00 08/02/23 07:38 08/02/23 07:38 08/02/23 07:38 FiO2 28 07/31/23 19:08 Oxygen Flow Rate (L/min) 8 Oxygen Delivery Method High Flow Weight: 102 lb 11.767 oz Body Mass Index (BMI) 16.0 Intake & Output: Intake and Output for Last 24 Hours 07/31/23 08/01/23 08/02/23 23:59 23:59 23:59 Intake Total 699.11 / 699.11 790 / 790 30 / 30 Output Total 3175 / 3175 1700 / 1700 150 / 150 Balance -2475.89 / -2475.89 -910 / -910 -120 / -120 Lab / Micro Data Attestation: I reviewed the patient's lab results. 08/01/23 04:35 08/01/23 04:35 Labs: Laboratory Results - last 24 hr 08/01/23 04:35: WBC 13.1 H, RBC 3.73 L, Hgb 9.2 L, Hct 31.9 L, MCV 85.5, MCH 24.7 L, MCHC 28.8 L, RDW Std Deviation 53.2 H, RDW Coeff of Sami 18.1 H, Plt Count 267, MPV 10.5, Immature Gran % (Auto) 0.800, Neut % (Auto) 78.4 H, Lymph % (Auto) 9.1 L, [place] % (Auto) 10.7 H, Eos % (Auto) 0.8, Baso % (Auto) 0.2, Absolute Neuts (auto) 10.3 H, Absolute Lymphs (auto) 1.19, Nucleated RBC % 0, Sodium 145, Potassium 3.0 L, Chloride 103, Carbon Dioxide 38.0 H, Anion Gap 4 L, BUN 17, Creatinine 0.36 L, Estim Creat Clear Calc 125.11, Est GFR (MDRD) Af Amer 231, Est GFR (MDRD) Non-Af 191, BUN/Creatinine Ratio 46.8 H, Glucose 109 H, Calcium 8.7 Micro: Microbiology 07/29/23 07:45 Sputum, Induced/Lukens Gram Stain - Final 07/29/23 07:45 Sputum, Induced/Lukens Respiratory Culture - Final Presumptive C albicans 07/29/23 08:00 Blood Culture (Wb) - Right Forearm Blood Culture - Preliminary No growth in 48 hours. 07/29/23 07:50 Blood Culture (Wb) - Pic Blood Culture - Preliminary No growth in 48 hours. 07/24/23 18:17 Blood Culture (Wb) - Anticubital Right Blood Culture - Final No growth in 5 days. 07/24/23 11:17 Blood Culture (Wb) #2 - Anticubital Left Blood Culture - Final No growth in 5 days. 07/24/23 10:35 Blood Culture (Wb) - No Site/Description Given Blood Culture - Final No growth in 5 days. 07/24/23 12:55 Sputum, Induced/Lukens Gram Stain - Final 07/24/23 12:55 Sputum, Induced/Lukens Respiratory Culture - Final Proteus mirabilis Staphylococcus aureus 07/24/23 13:05 Urine Catheter - Lundberg Urine Culture - Final Proteus mirabilis 07/24/23 13:05 Urine Catheter - Lundberg Legionella Antigen - Final 07/24/23 13:05 Urine Catheter - [place]berg Streptococcus pneumoniae Antigen (M - Final 07/24/23 15:55 Mucosa - Nasopharyngeal Respiratory Panel (PCR) - Final 07/24/23 10:55 Nasal Secretion SARS-CoV-2 & FLU Antigen (Rapid) - Final 07/24/23 10:55 Mucosa - Nasopharyngeal RSV RNA Qualitative (PCR) - Final 07/24/23 11:00 Stool Stool Occult Blood (CAROLYNE) - Final ABG Data ABG results: ABG 07/30/23 08:33 Specimen Type ART Sample Site R Radial pH 7.41 Bicarbonate Actual 30.6 H Total CO2 32 Base Excess 6 H O2 Saturation 91 L O2 % 30.0 ABG pCO2 47.9 H ABG pO2 60 L Arnoldo Test Positive O2 Delivery Device Adult Vent Vent Mode CPAP/PS POC PEEP 5 Physical Exam Const alert and no apparent distress Constitutional Narrative: Confused. HEENT normocephalic and head/scalp atraumatic Eyes PERRL, EOMs intact bilaterally and conjunctivae normal Neck supple General: trachea midline Chest inspection of chest normal Resp Effort and Inspection: tachypneic Auscultation: diminished lung sounds Cardio S1 normal heart sound and S2 normal heart sound Rate: tachycardic Rhythm: abnormal rhythm GI normal to inspection, nondistended, normoactive bowel sounds Extremity no clubbing, cyanosis or edema Skin no rashes or lesions noted Neuro moves all extremities and no focal motor deficits Psych Activity / Motor Behavior: restless Mood & Affect: anxious Charges/Coding Visit Charges Inpatient E&M: 20597 Subs Hosp L2
[2023-08-02] MEDS: predniSONE 20 MG Tablet 40 MG PO (09:00)
[2023-08-02] MEDS: APIXABAN 5 MG TABLET PO ×2 (09:45→20:50)
[2023-08-02] MEDS: Pantoprazole Sodium 40 MG in 0.9% Normal Saline (100mL MB+) 100 ML 330 MG IV (09:45)
[2023-08-02] MEDS: Furosemide 20 MG/2 ML VIAL IV ×2 (09:45→17:47)
[2023-08-02] MEDS: Polyethylene Glycol 3350 17 GM PACKET PO (09:46)
[2023-08-02] MEDS: 0.9% Saline Lock 10 ML Syringe IV (09:46)
[2023-08-02] MEDS: Senna/Docusate Sodium 1 Tablet 2 TABLET PO ×2 (09:48→20:50)
[2023-08-02] MEDS: Ensure Plus High Protein 120 ML LIQUID PO ×3 (10:03→17:47)
[2023-08-02] MEDS: busPIRone 5 MG Tablet 10 MG PO ×3 (10:12→20:50)
--- NOTE | 2023-08-02 11:53 | CPS ---
Patient placed on BiPAP per dr request. Patient stayed on for 10 minutes before ripping off the mask. Patient placed back on 10lpm nasal cannula. RN aware.
--- NOTE | 2023-08-02 13:20 | PN.HOSP_ITS ---
Reason for Visit Reason for Visit: Diagnoses Anemia, unspecified (07/24/23) Unspecified severe protein-calorie malnutrition (07/24/23) Other acidosis (07/24/23) Other cardiomyopathies (07/24/23) Hypotension, unspecified (07/24/23) Pneumonia due to Methicillin susceptible Staphylococcus aureus (07/24/23) Pneumonia due to other Gram-negative bacteria (07/24/23) Chronic obstructive pulmonary disease with (acute) exacerbation (07/24/23) Chronic obstructive pulmonary disease, unspecified (07/24/23) Acute and chronic respiratory failure with hypoxia (07/24/23) Acute and chronic respiratory failure with hypercapnia (07/24/23) Fever, unspecified (07/24/23) Cachexia (07/24/23) Other specified abnormalities of plasma proteins (07/24/23) Other specified abnormal findings of blood chemistry (07/24/23) Objective Data Objective Data Vital Signs: Vital Signs Temp Pulse Resp BP Pulse Ox O2 Del Method O2 Flow Rate 99.0 F 121 H 21 H 129/108 H 97 High Flow 10 08/02/23 07:00 08/02/23 11:34 08/02/23 11:53 08/02/23 07:00 08/02/23 11:34 08/02/23 11:34 08/02/23 11:34 FiO2 28 08/02/23 11:53 Oxygen Flow Rate (L/min) 10 Oxygen Delivery Method High Flow Weight: 102 lb 11.767 oz Body Mass Index (BMI) 16.0 Intake & Output: Intake and Output for Last 24 Hours 07/31/23 08/01/23 08/02/23 23:59 23:59 23:59 Intake Total 699.11 / 699.11 790 / 790 140 / 140 Output Total 3175 / 3175 1700 / 1700 150 / 150 Balance -2475.89 / -2475.89 -910 / -910 -10 / -10 Lab / Micro Data 08/01/23 04:35 08/01/23 04:35 Micro: Microbiology 07/29/23 07:45 Sputum, Induced/Lukens Gram Stain - Final 07/29/23 07:45 Sputum, Induced/Lukens Respiratory Culture - Final Presumptive C albicans 07/29/23 08:00 Blood Culture (Wb) - Right Forearm Blood Culture - Preliminary No growth in 48 hours. 07/29/23 07:50 Blood Culture (Wb) - Pic Blood Culture - Preliminary No growth in 48 hours. 07/24/23 18:17 Blood Culture (Wb) - Anticubital Right Blood Culture - Final No growth in 5 days. 07/24/23 11:17 Blood Culture (Wb) #2 - Anticubital Left Blood Culture - Final No growth in 5 days. 07/24/23 10:35 Blood Culture (Wb) - No Site/Description Given Blood Culture - Final No growth in 5 days. 07/24/23 12:55 Sputum, Induced/Lukens Gram Stain - Final 07/24/23 12:55 Sputum, Induced/Lukens Respiratory Culture - Final Proteus mirabilis Staphylococcus aureus 07/24/23 13:05 Urine Catheter - Lundberg Urine Culture - Final Proteus mirabilis 07/24/23 13:05 Urine Catheter - Lundberg Legionella Antigen - Final 07/24/23 13:05 Urine Catheter - Lundberg Streptococcus pneumoniae Antigen (M - Final 07/24/23 15:55 Mucosa - Nasopharyngeal Respiratory Panel (PCR) - Final 07/24/23 10:55 Nasal Secretion SARS-CoV-2 & FLU Antigen (Rapid) - Final 07/24/23 10:55 Mucosa - Nasopharyngeal RSV RNA Qualitative (PCR) - Final 07/24/23 11:00 Stool Stool Occult Blood (CAROLYNE) - Final Physical Exam Narrative Seen and examined. Seen and examined. Patient found short of breath, tachypneic and sinus tachycardic in ICU. Heart rate in 120s. Respiratory rate 34/min.No fever temperature in the 99's. On 10 L of oxygen. Physical exam General: Alert, Oriented x3, Cooperative, BMI 17.3 kg/m?, severe malnutrition. HEENT: Atraumatic, PERRLA, EOMI, Normocephalic Oral: Oral mucosa dry. On oxygen mask Neck: Supple, No JVD, Negative Carotid Bruits Lungs: Air entry severely diminished in bilateral lung bases. Bilateral expiratory rhonchi. Dyspnea at rest, tachypneic. Cardiovascular: A-fib rhythm, Normal S1, Normal S2, No murmurs Abdomen: Bowel Sounds Present, Soft, Non Tender, Non-Distended : No renal angle tenderness. No suprapubic tenderness. Extremities: No edema, Capillary Refill Less than 3 Seconds Skin: Subcutaneous bruise and ecchymosis on both upper extremities. Musculoskeletal: No Tenderness to Palpation of Joints or Extremities. Moderate chronic muscle atrophy of extremities including thighs and calf muscles Neurological: Cranial nerves II-XII grossly intact, DTR 2+/4. No acute focal neurological deficit. Psych/Mental Status: Flat affect. Assessment & Plan Assessment/Plan (1) Severe malnutrition: (2) Acute anemia: (3) Hypotension: (4) Staphylococcus aureus pneumonia: (5) Proteus pneumonia: (6) Stage 4 very severe COPD by GOLD classification: (7) Respiratory acidosis: (8) Fever: PLAN: Plan Acute on chronic hypoxic and hypercapnic respiratory failure secondary to acute exacerbation of COPD/Staph aureus and Proteus pneumonia -Placed on BiPAP on presentation however pH did not improve after 2 hours on BiPAP and therefore we intubated her for persistent hypercapnia and somnolence -Intubated 07/23/2023 -Hopeful for extubation today -Patient remains on mechanical ventilation with an FiO2 of 35% -Thus far doing well and her breathing trial -At baseline patient uses 2.5 L with exertion only -Sputum cultures are positive for Proteus and Staph aureus (MSSA) -Solu-Medrol changed to prednisone. 07/31: Patient was extubated on 07/30/2023. Currently on oxygen through nasal cannula and BiPAP at night. 1 week of Levaquin will be completed on 08/01/2023. On DuoNeb. Diuresis as per tolerated. Continue aggressive bronchopulmonary hygiene 08/01: Patient on 8 L of oxygen, short of breath, dyspnea at rest. Sinus tachycardia with arrhythmia heart rate in 130s. Patient on metoprolol 50 mg 3 times daily. Advised to put on BiPAP/AVAPS. 08/02: Patient on 10 L of high flow oxygen. Labored and tachypneic breathing in respiratory distress. Advised to put on Airvo/BiPAP, NIPPV patient is tired of increased work of breathing. Fever, Tmax 101.4 Fahrenheit. Patient is covered with antibiotics. Was thought may be related to Precedex. Precedex is discontinued. UA was not consistent with infection -MRSA PCR is negative so we will discontinue bank 08/02: Temperature is 99's but no high-grade fever. Troponin elevation -Type II NSTEMI secondary to acute respiratory failure as noted above -Echocardiogram shows an EF of 40 to 45% and diffuse mitral valve thickening which is stable compared to previous -No acute ischemia noted on EKG Acute on chronic anemia - hemoglobin is around 8.8/30.1.MCV normal. Reticulocyte count 223,000. No obvious sign for acute GI bleed. 08/01: Hemoglobin improving better. H&H 9.2/32%. 08/02: Hemoglobin 9.2. Platelet count 267. 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 -Continue metoprolol to 50 mg p.o. 3 times daily -Continue home apixaban 08/01: Metoprolol dose increased to 75 mg 3 times daily. Currently in sinus rhythm. Patient is sinus tachycardia with arrhythmia most likely driven by acute hypoxic respiratory failure. 08/02: I think better control of the respiratory failure will improve heart rate. Patient needs NIPPV. HFrEF-nonischemic cardiomyopathy -Last echocardiogram from 07/10/2022 shows an EF of 40% with mild global hypokinesis of the LV and mild to moderate mitral valve insufficiency -Echocardiogram stable with an EF of 40 to 45% with moderate mitral valve i nsufficiency -Hold home lisinopril -Continue metoprolol to 50 twice daily -Would recommend outpatient cardiology follow-up with outpatient noninvasive stress testing after stabilized clinically if echo shows no wall motion abnormality -Continue Lasix 20 mg IV twice daily -Patient is diuresing well and this will improve the likelihood of her getting extubated Mild hypokalemia. Patient on Lasix. 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 diet COPD Gold stage IV -Baseline FEV1 was 25% predicted -Wears 2.5 L of oxygen at baseline -Continue supplemental oxygen as noted -Hold inhalers -Pulmonary toilet as above -Follows with Dr. Enamorado as an outpatient -Still smoking -A questionable whether or not patient will be extubated due to the severity of her lung disease at baseline and this has been discussed previously with the patient with the result of her always wanting to be intubated as she was on admission Hypertension -Hold home lisinopril -Continue metoprolol to 50 mg p.o. twice daily -As needed hydralazine Tobacco abuse -Patient with ongoing tobacco abuse -Recommend cessation Depression -Patient is no longer taking anything for this DVT prophylaxis -Continue apixaban CODE STATUS -Full code is reviewed with the prior to leaving the emergency department by the emergency department physician Charges/Coding Visit Charges Inpatient E&M: 14431 Subs Hosp L3
--- NOTE | 2023-08-02 13:32 | CON.PCM.CC_ITS ---
HPI Consult Data Date of Consult: 08/02/23 HPI Narrative HPI Narrative: KARYNA SALEH, is a 62 F who presents [facility] Medical History Acute on chronic respiratory failure with hypoxia and hypercapnia Afib Chronic respiratory failure with hypoxia Elevated troponin I level Essential (primary) hypertension History of non-ST elevation myocardial infarction (NSTEMI) (06/21/19) Hyperglycemia Hyperlipidemia Leukocytosis Non-ischemic cardiomyopathy On home oxygen therapy DONNA (obstructive sleep apnea) Protein calorie malnutrition Smoker Stage 4 very severe COPD by GOLD classification Home Medications acetaminophen 500 mg tablet 1,000 mg PO DAILY PRN PRN Pain Or Fever 10/04/18 [History Last Taken 06/13/19] lisinopril 10 mg tablet 10 mg PO DAILY BP 10/04/18 [History Last Taken 06/14/19] albuterol sulfate 2.5 mg/3 mL (0.083 %) solution for nebulization 2.5 mg (3 mL) inhalation Q6H #180 mL 12/30/22 [Rx Last Taken Unknown] Disability Placard #1 ea 03/15/23 [Rx Last Taken Unknown] apixaban 5 mg tablet (Eliquis) 5 mg PO BID #60 tabs 03/15/23 [Rx Last Taken Unknown] tiotropium bromide 1.25 mcg/actuation mist for inhalation (Spiriva Respimat) 2 puff inhalation DAILY #4 grams 03/15/23 [Rx Last Taken Unknown] budesonide-formoterol HFA 160 mcg-4.5 mcg/actuation aerosol inhaler (Symbicort) 2 puff inhalation BID #10.2 grams 05/26/23 [Rx Last Taken Unknown] albuterol sulfate 90 mcg/actuation aerosol inhaler 2 inh PO Q4H PRN shortness of breath or wheezing #8.5 grams 06/24/23 [Rx Last Taken Unknown] pantoprazole 40 mg tablet,delayed release 40 mg PO DAILY GERD 07/24/23 [History Last Taken Unknown] Allergy/AdvReac Type Severity Reaction Status Date / Time atorvastatin [From Lipitor] Allergy Unknown Unknown Verified 03/21/23 11:43 codeine Allergy Rash Verified 03/21/23 11:43 ibuprofen Allergy Rash Verified 03/21/23 11:43 Family History Father Lung cancer Mother Breast cancer Parkinsons disease Surgical History H/O tubal ligation Social History household members: significant other housing: house Smoking Status: Current every day smoker tobacco type: cigarettes alcohol intake: never substance use type: does not use Lab / Micro Data 08/01/23 04:35 08/01/23 04:35
[2023-08-02 16:32] LABS: Absolute Lymphocyte Count 0.49 X10^3/uL (0.83-4.51); Absolute Neutrophil Count 12.5 X10^3/uL (2.0-7.7); Basophil# 0.02 X10^3/uL; Basophil% 0.1 % (0-1); Eosinophil# 0.01 X10^3/uL; Eosinophils% 0.1 % (0-5); Hematocrit 36.9 % (37-47); Hemoglobin 10.5 g/dL (12.0-15.0); Lymphocyte # 0.49 X10^3/ul (0.83-4.51); Lymphocyte % 3.7 % (19-41); Mean Corp Hgb Conc 28.5 g/dL (32-36); Mean Corpuscular Hgb 24.9 pg (27.0-32.0); Mean Corpuscular Volume 87.6 fL (81-99); Mean Platelet Vol. 11.4 fl (6.2-12.0); Monocyte# 0.29 X10^3/uL; Monocyte% 2.2 % (0-10); NRBC Flagged by Analyzer 0 % (0-5); Neutrophil # 12.51 X10^3/uL (2.7-7.7); Neutrophil % 93.2 % (47-70); POSITIVE DIFFERENTIAL YES; Platelet Count 428 K/mm3 (150-450); RBC Distribution Width CV 18.1 % (11.6-14.6); RBC Distribution Width SD 56.1 fl (35.1-43.9); Red Blood Count 4.21 M/mm3 (4.2-5.4); White Blood Count 13.4 K/mm3 (4.4-11.0)
[2023-08-02 16:43] LABS: Differential Indicated SCAN CRITERIA MET
[2023-08-02 16:56] LABS: Differential Comment SCANNED; Hypochromasia 2+
[2023-08-02 16:57] LABS: Anion Gap 4 (5-15); BUN 27 mg/dL (7-18); BUN/Creat Ratio 48.4 RATIO (10-20); Chloride 103 mmol/L (98-107); Creatinine, Serum 0.56 mg/dL (0.55-1.02); EST Glomerular Filtration Rate 116 mL/min (>60); Est Glom Filt Rate - Afr Amer 140 mL/min (>60); Estimated Creatinine Clearance 74.66 ml/min; Glucose 198 mg/dL (74-106); Magnesium 2.4 mg/dL (1.6-2.6); Phosphorus 3.5 mg/dL (2.5-4.9); Potassium 3.8 mmol/L (3.5-5.1); Sodium Level 143 mmol/L (136-145)
[2023-08-03] VITALS (25 sets, daily range): BP systolic 94–154; BP diastolic 54–138; PULSE 66–125; RESP 12–37; TEMP 36.6–37.7; O2SAT 93–98; BMI 15.3
[2023-08-03] MEDS: busPIRone 5 MG Tablet 10 MG PO (06:34)
[2023-08-03] MEDS: Metoprolol Tartrate 50 MG Tablet 75 MG PO ×3 (06:34→20:42)
[2023-08-03] MEDS: Acetaminophen 325 MG Tablet 650 MG PO ×2 (06:47→13:33)
[2023-08-03] MEDS: Ipratropium 0.5 MG/2.5 ML SOLUTION INHALATION ×4 (07:15→19:21)
[2023-08-03] MEDS: predniSONE 20 MG Tablet 40 MG PO (09:31)
[2023-08-03] MEDS: Polyethylene Glycol 3350 17 GM PACKET PO (09:31)
[2023-08-03] MEDS: APIXABAN 5 MG TABLET PO ×2 (09:31→20:42)
[2023-08-03] MEDS: Furosemide 20 MG/2 ML VIAL IV (09:31)
[2023-08-03] MEDS: Senna/Docusate Sodium 1 Tablet 2 TABLET PO (09:36)
[2023-08-03] MEDS: Pantoprazole Sodium 40 MG in 0.9% Normal Saline (100mL MB+) 100 ML 330 MG IV (09:46)
--- NOTE | 2023-08-03 11:58 | PN.CC_ITS ---
Assessment & Plan Assessment/Plan (1) COPD with acute exacerbation: (2) Pulmonary cachexia due to COPD: (3) Acute on chronic respiratory failure with hypoxia and hypercapnia: (4) Stage 4 very severe COPD by GOLD classification: (5) Non-ischemic cardiomyopathy: PLAN: Plan RECOMMENDATIONS: 1. Wean supplemental oxygen to maintain saturations above 90%. 2. Continue scheduled Atrovent. 3. Diuresis as tolerated by hemodynamics and renal function. 4. Continue Eliquis as ordered. 5. Continue prednisone, with plans for a taper at discharge. 6. Continue beta-julianna as ordered. 7. Continue scheduled BuSpar. 8. Encourage incentive spirometer use and mobilize patient as tolerated. IMPRESSIONS: 1. Acute on chronic combined respiratory failure secondary to COPD exacerbation The patient has advanced lung disease at baseline with continued smoking and likely progression of disease. Viral panel was negative. Infiltrates will be difficult to evaluate as patient has very little lung parenchyma. The patient was ultimately able to be extubated and is doing well on supplemental oxygen via nasal cannula. Plan to continue supportive care including antibiotics, bronchodilators and prednisone. Wean supplemental oxygen to maintain saturations at or above 90%. Recommend AVAPS therapy nightly. 2. Elevated troponin/chronic systolic CHF Most likely secondary to demand ischemia in the setting of #1. Continue supportive care. 3. Severe protein malnutrition The patient has significantly reduced BMI and likely has an element of pulmonary cachexia. Continue nutritional support per dietary recommendations. 4. Tobacco abuse/hypertension/debility/anemia Complicates care, management, recovery and prognosis. PT/OT to work with the patient. The patient will need to follow-up with her primary director of audiology, Dr. Enamorado, upon discharge from the hospital. This note was generated with [employer] dictation software. It may contain incorrect words, spelling, and punctuation that were not noted in checking the note before signing. Subjective Subjective The patient was seen and examined at the bedside this morning. Events from the last 24 hours have been reviewed. The patient is currently afebrile, hemodynamically stable and maintaining appropriate oxygen saturations on 8 L/min via nasal cannula. Creatinine is stable. Objective Data Objective Data The patient's most recent lab work, culture data and imaging studies have all been personally reviewed. Surface echocardiogram from July 25 demonstrated normal LV size and thickness with an ejection fraction of 40 to 45%. Sputum cu lture dated July 24 was positive for Proteus mirabilis and Staph aureus. Vital Signs: Vital Signs Temp Pulse Resp BP Pulse Ox O2 Del Method O2 Flow Rate 99.5 F H 106 H 20 H 103/71 94 High Flow 9 08/03/23 10:00 08/03/23 10:34 08/03/23 10:34 08/03/23 10:00 08/03/23 10:00 08/03/23 10:00 08/03/23 10:00 FiO2 28 08/02/23 23:01 Oxygen Flow Rate (L/min) 9 Oxygen Delivery Method High Flow Weight: 97 lb 14.164 oz Body Mass Index (BMI) 15.3 Intake & Output: Intake and Output for Last 24 Hours 08/01/23 08/02/23 08/03/23 23:59 23:59 23:59 Intake Total 790 / 790 500 / 500 110 / 110 Output Total 1700 / 1700 925 / 1425 1050 / 1050 Balance -910 / -910 -425 / -925 -940 / -940 Medical Nutrition Assessment Dietitian: Malnutrition Criteria Met Start: 08/03/23 10:40 Freq: Status: Active Protocol: Document 08/03/23 10:40 AG (Rec: 08/03/23 10:40 AG Desktop) Nutrition Malnutrition Evidence of Malnutrition Exists Yes Malnutrition (severe): Chronic Evidenced By Suboptimal Energy Intake ( Severe),Physical Changes ( Severe) Intake Problem Inadequate Oral Intake Etiology related to decreased appetite Signs/Symptoms as evidenced by estimated PO intake meeting <50% of estimated energy needs Status Active Problem Clinical Problem Chronic Disease or Condition Related Malnutrition Etiology severe, chronic malnutrition related to inadequate energy intake Signs/Symptoms as evidenced by estimated PO intake meeting <75% of estimated energy needs > 3 months, ; Severe muscle wasting/fat loss evident per physical exam in orbital, clavicle, acromion, and temporal areas; BMI 15.3 Status Active Problem Recommendation Dietitian Recommendations/Changes continue regular diet- texture /consistency modifications per PET ADOPTION COUNSELOR. Continue to offer Ensure Plus High Protein 120mL 4x/ day w/medpass; will add magic cups w/ dinner for additional nutrition if consumed. Lab / Micro Data Attestation: I reviewed the patient's lab results. 08/02/23 16:10 08/02/23 16:10 Labs: Laboratory Results - last 24 hr 08/02/23 16:10: WBC 13.4 H, RBC 4.21, Hgb 10.5 L, Hct 36.9 L, MCV 87.6, MCH 24.9 L, MCHC 28.5 L, RDW Std Deviation 56.1 H, RDW Coeff of Sami 18.1 H, Plt Count 428, MPV 11.4, Immature Gran % (Auto) 0.700, Neut % (Auto) 93.2 H, Lymph % (Auto) 3.7 L, Kaufman % (Auto) 2.2, Eos % (Auto) 0.1, Baso % (Auto) 0.1, Absolute Neuts (auto) 12.5 H, Absolute Lymphs (auto) 0.49 L, Nucleated RBC % 0, Differ ential Comment SCANNED, Hypochromasia 2+, Sodium 143, Potassium 3.8, Chloride 103, Carbon Dioxide 36.0 H, Anion Gap 4 L, BUN 27 H, Creatinine 0.56, Estim Creat Clear Calc 74.66, Est GFR (MDRD) Af Amer 140, Est GFR (MDRD) Non-Af 116, BUN/Creatinine Ratio 48.4 H, Glucose 198 H, Calcium 9.0, Phosphorus 3.5, Magnesium 2.4 Micro: Microbiology 07/29/23 07:50 Blood Culture (Wb) - Pic Blood Culture - Final No growth in 5 days. 07/29/23 08:00 Blood Culture (Wb) - Right Forearm Blood Culture - Final No growth in 5 days. 07/29/23 07:45 Sputum, Induced/Lukens Gram Stain - Final 07/29/23 07:45 Sputum, Induced/Lukens Respiratory Culture - Final Presumptive C albicans 07/24/23 18:17 Blood Culture (Wb) - Anticubital Right Blood Culture - Final No growth in 5 days. 07/24/23 11:17 Blood Culture (Wb) #2 - Anticubital Left Blood Culture - Final No growth in 5 days. 07/24/23 10:35 Blood Culture (Wb) - No Site/Description Given Blood Culture - Final No growth in 5 days. 07/24/23 12:55 Sputum, Induced/Lukens Gram Stain - Final 07/24/23 12:55 Sputum, Induced/Lukens Respiratory Culture - Final Proteus mirabilis Staphylococcus aureus 07/24/23 13:05 Urine Catheter - Lundberg Urine Culture - Final Proteus mirabilis 07/24/23 13:05 Urine Catheter - Lundberg Legionella Antigen - Final 07/24/23 13:05 Urine Catheter - Lundberg Streptococcus pneumoniae Antigen (M - Final 07/24/23 15:55 Mucosa - Nasopharyngeal Respiratory Panel (PCR) - Final 07/24/23 10:55 Nasal Secretion SARS-CoV-2 & FLU Antigen (Rapid) - Final 07/24/23 10:55 Mucosa - Nasopharyngeal RSV RNA Qualitative (PCR) - Final 07/24/23 11:00 Stool Stool Occult Blood (CAROLYNE) - Final ABG Data ABG results: ABG 07/30/23 08:33 Specimen Type ART Sample Site R Radial pH 7.41 Bicarbonate Actual 30.6 H Total CO2 32 Base Excess 6 H O2 Saturation 91 L O2 % 30.0 ABG pCO2 47.9 H ABG pO2 60 L Arnoldo Test Positive O2 Delivery Device Adult Vent Vent Mode CPAP/PS POC PEEP 5 Physical Exam Const alert and no apparent distress Constitutional Narrative: Confused. HEENT normocephalic and head/scalp atraumatic Eyes PERRL, EOMs intact bilaterally and conjunctivae normal Neck supple General: trachea midline Chest inspection of chest normal Resp Effort and Inspection: tachypneic Auscultation: diminished lung sounds Cardio S1 normal heart sound and S2 normal heart sound Rate: tachycardic Rhythm: abnormal rhythm GI normal to inspection, nondistended, normoactive bowel sounds Extremity no clubbing, cyanosis or edema Skin no rashes or lesions noted Neuro moves all extremities and no focal motor deficits Psych Activity / Motor Behavior: restless Mood & Affect: anxious Charges/Coding Visit Charges Inpatient E&M: 37620 Subs Hosp L2
--- NOTE | 2023-08-03 13:10 | PCM.PN.HOSP ---
Reason for Visit Reason for Visit: Diagnoses Anemia, unspecified (07/24/23) Unspecified severe protein-calorie malnutrition (07/24/23) Other acidosis (07/24/23) Other cardiomyopathies (07/24/23) Hypotension, unspecified (07/24/23) Pneumonia due to Methicillin susceptible Staphylococcus aureus (07/24/23) Pneumonia due to other Gram-negative bacteria (07/24/23) Chronic obstructive pulmonary disease with (acute) exacerbation (07/24/23) Chronic obstructive pulmonary disease, unspecified (07/24/23) Acute and chronic respiratory failure with hypoxia (07/24/23) Acute and chronic respiratory failure with hypercapnia (07/24/23) Fever, unspecified (07/24/23) Cachexia (07/24/23) Other specified abnormalities of plasma proteins (07/24/23) Other specified abnormal findings of blood chemistry (07/24/23) Objective Data Objective Data Vital Signs: Vital Signs Temp Pulse Resp BP Pulse Ox O2 Del Method O2 Flow Rate 99.5 F H 106 H 20 H 103/71 94 High Flow 9 08/03/23 10:00 08/03/23 10:34 08/03/23 10:34 08/03/23 10:00 08/03/23 10:00 08/03/23 10:00 08/03/23 10:00 FiO2 28 08/02/23 23:01 Oxygen Flow Rate (L/min) 9 Oxygen Delivery Method High Flow Weight: 97 lb 14.164 oz Body Mass Index (BMI) 15.3 Intake & Output: Intake and Output for Last 24 Hours 08/01/23 08/02/23 08/03/23 23:59 23:59 23:59 Intake Total 790 / 790 500 / 500 110 / 110 Output Total 1700 / 1700 925 / 1425 1050 / 1050 Balance -910 / -910 -425 / -925 -940 / -940 Medical Nutrition Assessment Dietitian: Malnutrition Criteria Met Start: 08/03/23 10:40 Freq: Status: Active Protocol: Document 08/03/23 10:40 AG (Rec: 08/03/23 10:40 AG Desktop) Nutrition Malnutrition Evidence of Malnutrition Exists Yes Malnutrition (severe): Chronic Evidenced By Suboptimal Energy Intake ( Severe),Physical Changes ( Severe) Intake Problem Inadequate Oral Intake Etiology related to decreased appetite Signs/Symptoms as evidenced by estimated PO intake meeting <50% of estimated energy needs Status Active Problem Clinical Problem Chronic Disease or Condition Related Malnutrition Etiology severe, chronic malnutrition related to inadequate energy intake Signs/Symptoms as evidenced by estimated PO intake meeting <75% of estimated energy needs > 3 months, ; Severe muscle wasting/fat loss evident per physical exam in orbital, clavicle, acromion, and temporal areas; BMI 15.3 Status Active Problem Recommendation Dietitian Recommendations/Changes continue regular diet- texture /consistency modifications per [employer]. Continue to offer Ensure Plus High Protein 120mL 4x/ day w/medpass; will add magic cups w/ dinner for additional nutrition if consumed. Lab / Micro Data 08/02/23 16:10 08/02/23 16:10 Labs: Laboratory Results - last 24 hr 08/02/23 16:10: WBC 13.4 H, RBC 4.21, Hgb 10.5 L, Hct 36.9 L, MCV 87.6, MCH 24.9 L, MCHC 28.5 L, RDW Std Deviation 56.1 H, RDW Coeff of Sami 18.1 H, Plt Count 428, MPV 11.4, Immature Gran % (Auto) 0.700, Neut % (Auto) 93.2 H, Lymph % (Auto) 3.7 L, Morgan % (Auto) 2.2, Eos % (Auto) 0.1, Baso % (Auto) 0.1, Absolute Neuts (auto) 12.5 H, Absolute Lymphs (auto) 0.49 L, Nucleated RBC % 0, Differential Comment SCANNED, Hypochromasia 2+, Sodium 143, Potassium 3.8, Chloride 103, Carbon Dioxide 36.0 H, Anion Gap 4 L, BUN 27 H, Creatinine 0.56, Estim Creat Clear Calc 74.66, Est GFR (MDRD) Af Amer 140, Est GFR (MDRD) Non-Af 116, BUN/Creatinine Ratio 48.4 H, Glucose 198 H, Calcium 9.0, Phosphorus 3.5, Magnesium 2.4 Micro: Microbiology 07/29/23 07:50 Blood Culture (Wb) - Pic Blood Culture - Final No growth in 5 days. 07/29/23 08:00 Blood Culture (Wb) - Right Forearm Blood Culture - Final No growth in 5 days. 07/29/23 07:45 Sputum, Induced/Lukens Gram Stain - Final 07/29/23 07:45 Sputum, Induced/Lukens Respiratory Culture - Final Presumptive C albicans 07/24/23 18:17 Blood Culture (Wb) - Anticubital Right Blood Culture - Final No growth in 5 days. 07/24/23 11:17 Blood Culture (Wb) #2 - Anticubital Left Blood Culture - Final No growth in 5 days. 07/24/23 10:35 Blood Culture (Wb) - No Site/Description Given Blood Culture - Final No growth in 5 days. 07/24/23 12:55 Sputum, Induced/Lukens Gram Stain - Final 07/24/23 12:55 Sputum, Induced/Lukens Respiratory Culture - Final Proteus mirabilis Staphylococcus aureus 07/24/23 13:05 Urine Catheter - Lundberg Urine Culture - Final Proteus mirabilis 07/24/23 13:05 Urine Catheter - Lundberg Legionella Antigen - Final 07/24/23 13:05 Urine Catheter - Lundberg Streptococcus pneumoniae Antigen (M - Final 07/24/23 15:55 Mucosa - Nasopharyngeal Respiratory Panel (PCR) - Final 07/24/23 10:55 Nasal Secretion SARS-CoV-2 & FLU Antigen (Rapid) - Final 07/24/23 10:55 Mucosa - Nasopharyngeal RSV RNA Qualitative (PCR) - Final 07/24/23 11:00 Stool Stool Occult Blood (CAROLYNE) - Final Physical Exam Narrative Seen and examined. Overnight events noted. Discussed with the nursing staff. Low-grade temperature Tmax 99.7 Fahrenheit patient is still short of breath and tachypneic, but looks better than yesterday. On 9 L high flow oxygen. Heart rate sinus tachycardia in 110s. Physical exam General: Alert, Oriented x3, Cooperative, BMI 17.3 kg/m?, severe malnutrition. HEENT: Atraumatic, PERRLA, EOMI, Normocephalic Oral: Oral mucosa dry. On high flow oxygen Neck: Supple, No JVD, Negative Carotid Bruits Lungs: Air entry severely diminished in bilateral lung bases. Bilateral expiratory rhonchi. Dyspnea at rest, tachypneic. Cardiovascular: A-fib rhythm, Normal S1, Normal S2, No murmurs Abdomen: Bowel Sounds Present, Soft, Non Tender, Non-Distended : Lundberg catheter with clear urine. 350 mill since morning. No renal angle tenderness. No suprapubic tenderness. Extremities: No edema, Capillary Refill Less than 3 Seconds Skin: Subcutaneous bruise and ecchymosis on both upper extremities. Musculoskeletal: No Tenderness to Palpation of Joints or Extremities. Moderate chronic muscle atrophy of extremities including thighs and calf muscles Neurological: Cranial nerves II-XII grossly intact, DTR 2+/4. No acute focal neurological deficit. Psych/Mental Status: Flat affect. Assessment & Plan Assessment/Plan (1) Severe malnutrition: (2) Acute anemia: (3) Hypotension: (4) Staphylococcus aureus pneumonia: (5) Proteus pneumonia: (6) Stage 4 very severe COPD by GOLD classification: (7) Respiratory acidosis: (8) Fever: PLAN: Plan Acute on chronic hypoxic and hypercapnic respiratory failure secondary to acute exacerbation of COPD/Staph aureus and Proteus pneumonia -Placed on BiPAP on presentation however pH did not improve after 2 hours on BiPAP and therefore we intubated her for persistent hypercapnia and somnolence -Intubated 07/23/2023 -Hopeful for extubation today -Patient remains on mechanical ventilation with an FiO2 of 35% -Thus far doing well and her breathing trial -At baseline patient uses 2.5 L with exertion only -Sputum cultures are positive for Proteus and Staph aureus (MSSA) -Solu-Medrol changed to prednisone. 07/31: Patient was extubated on 07/30/2023. Currently on oxygen through nasal cannula and BiPAP at night. 1 week of Levaquin will be completed on 08/01/2023. On DuoNeb. Diuresis as per tolerated. Continue aggressive bronchopulmonary hygiene 08/01: Patient on 8 L of oxygen, short of breath, dyspnea at rest. Sinus tachycardia with arrhythmia heart rate in 130s. Patient on metoprolol 50 mg 3 times daily. Advised to put on BiPAP/AVAPS. 08/02: Patient on 10 L of high flow oxygen. Labored and tachypneic breathing in respiratory distress. Advised to put on Airvo/BiPAP, NIPPV patient is tired of increased work of breathing. 08/03: 9 L of oxygen. Still tachypneic but looks better than yesterday. Fever, Tmax 101.4 Fahrenheit. Patient is covered with antibiotics. Was thought may be related to Precedex. Precedex is discontinued. UA was not consistent with infection -MRSA PCR is negative so we will discontinue bank 08/02: Temperature is 99's but no high-grade fever. 08/03: Clinical temperature is similar to 99's. No high-grade fever Troponin elevation -Type II NSTEMI secondary to acute respiratory failure as noted above -Echocardiogram shows an EF of 40 to 45% and diffuse mitral valve thickening which is stable compared to previous -No acute ischemia noted on EKG Acute on chronic anemia - hemoglobin is around 8.8/30.1.MCV normal. Reticulocyte count 223,000. No obvious sign for acute GI bleed. 08/01: Hemoglobin improving better. H&H 9.2/32%. 08/02: Hemoglobin 9.2. Platelet count 267. PAF -Patient has history of paroxysmal atrial fibrillation that especially worsens when she is in respiratory distress as anticipated diamond selector shows patient is in A-fib. -Continue metoprolol to 50 mg p.o. 3 times daily -Continue home apixaban 08/01: Metoprolol dose increased to 75 mg 3 times daily. Currently in sinus rhythm. Patient is sinus tachycardia with arrhythmia most likely driven by acute hypoxic respiratory failure. 08/02: I think better control of the respiratory failure will improve heart rate. Patient needs NIPPV. HFrEF-nonischemic cardiomyopathy -Last echocardiogram from 07/10/2022 shows an EF of 40% with mild global hypokinesis of the LV and mild to moderate mitral valve insufficiency -Echocardiogram stable with an EF of 40 to 45% with moderate mitral valve insufficiency -Hold home lisinopril -Continue metoprolol to 50 twice daily -Would recommend outpatient cardiology follow-up with outpatient noninvasive stress testing after stabilized clinically if echo shows no wall motion abnormality -Continue Lasix 20 mg IV twice daily -Patient is diuresing well and this will improve the likelihood of her getting extubated Mild hypokalemia. Patient on Lasix. 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 diet 08/03: Potassium is 3.8. COPD Gold stage IV -Baseline FEV1 was 25% predicted -Wears 2.5 L of oxygen at baseline -Continue supplemental oxygen as noted -Hold inhalers -Pulmonary toilet as above -Follows with Dr. Enamorado as an outpatient -Still smoking -A questionable whether or not patient will be extubated due to the severity of her lung disease at baseline and this has been discussed previously with the patient with the result of her always wanting to be intubated as she was on admission Hypertension -Hold home lisinopril -Continue metoprolol to 50 mg p.o. twice daily -As needed hydralazine Tobacco abuse -Patient with ongoing tobacco abuse -Recommend cessation Depression -Patient is no longer taking anything for this DVT prophylaxis -Continue apixaban CODE STATUS -Full code is reviewed with the prior to leaving the emergency department by the emergency department physician Charges/Coding Visit Charges Inpatient E&M: 23048 Subs Hosp L3
[2023-08-03] MEDS: busPIRone 5 MG Tablet PO ×2 (13:31→20:42)
[2023-08-03] MEDS: Ensure Plus High Protein 120 ML LIQUID PO ×2 (13:38→20:42)
--- NOTE | 2023-08-03 13:43 | CASEMGMT ---
SW spoke with patient and her significant other Vin. SW expressed concern with patient going home at discharge as therapy has to use a sit to stand device to get patient to stand up. Vin said he agrees patient needs rehab and so do her children. However, patient is not agreeable. Patient actually spoke up and said she didn't want to go anywhere. Vin said they would like [facility]. Vin said he continues to talk with patient every day about going for rehab. SW let them know SW will continue to talk with them about d/c planning. Jaimee Mtz ENVIRONMENTAL DEPARTMENT MANAGER RUTH
[2023-08-03 14:43] LABS: BNP,B-Type NATRIURETIC PEPTIDE 222.6 pg/mL (0-100)
--- NOTE | 2023-08-03 15:17 | WOUNDNOTE ---
wound photo: right upper buttock
[2023-08-03] MEDS: Furosemide 40 MG/4 ML Vial IV (18:27)
[2023-08-04] VITALS (13 sets, daily range): BP systolic 79–123; BP diastolic 53–74; PULSE 88–115; RESP 12–30; TEMP 36.4–37; O2SAT 90–99; BMI 15.5
--- NOTE | 2023-08-04 00:12 | CPS ---
Tidal volumes increased to 450 on AVAPS settings to achieve better patient tidal volumes
[2023-08-04] MEDS: busPIRone 5 MG Tablet PO ×3 (05:27→21:10)
[2023-08-04] MEDS: Metoprolol Tartrate 50 MG Tablet 75 MG PO ×3 (05:27→21:10)
--- NOTE | 2023-08-04 06:51 | PCM.PN.INT ---
Assessment & Plan Assessment/Plan (1) COPD with acute exacerbation: (2) Pulmonary cachexia due to COPD: (3) Acute on chronic respiratory failure with hypoxia and hypercapnia: (4) Stage 4 very severe COPD by GOLD classification: (5) Non-ischemic cardiomyopathy: PLAN: Plan RECOMMENDATIONS: 1. Wean supplemental oxygen to maintain saturations above 90%. 2. Continue scheduled Atrovent. 3. Diuresis as tolerated by hemodynamics and renal function. 4. Continue Eliquis as ordered. 5. Continue prednisone, with plans for a taper at discharge. 6. Continue beta-julianna as ordered. 7. Continue scheduled BuSpar. 8. Encourage incentive spirometer use and mobilize patient as tolerated. IMPRESSIONS: 1. Acute on chronic combined respiratory failure secondary to COPD exacerbation The patient has advanced lung disease at baseline with continued smoking and likely progression of disease. Viral panel was negative. Infiltrates will be difficult to evaluate as patient has very little lung parenchyma. The patient was ultimately able to be extubated and is doing well on supplemental oxygen via nasal cannula. Plan to continue supportive care including antibiotics, bronchodilators and prednisone. Wean supplemental oxygen to maintain saturations at or above 90%. Recommend AVAPS therapy nightly. 2. Elevated troponin/chronic systolic CHF Most likely secondary to demand ischemia in the setting of #1. Continue supportive care. 3. Severe protein malnutrition The patient has significantly reduced BMI and likely has an element of pulmonary cachexia. Continue nutritional support per dietary recommendations. 4. Tobacco abuse/hypertension/debility/anemia Complicates care, management, recovery and prognosis. PT/OT to work with the patient. The patient will need to follow-up with her primary attending physician, Dr. Enamorado, upon discharge from the hospital. This note was generated with [employer] dictation software. It may contain incorrect words, spelling, and punctuation that were not noted in checking the note before signing. Subjective Subjective The patient was seen and examined at the bedside this morning. Events from the last 24 hours have been reviewed. The patient is currently afebrile, hemodynamically stable and maintaining appropriate oxygen saturations on 6 L/min via nasal cannula. The patient is documented to be overall net -1.1 L for the hospitalization. The patient has been compliant with use of nocturnal PAP therapy. Objective Data Objective Data The patient's most recent lab work, culture data and imaging studies have all been personally reviewed. Surface echocardiogram from July 25 demonstrated normal LV size and thickness with an ejection fraction of 40 to 45%. Sputum culture dated July 24 was positive for Proteus mirabilis and Staph aureus. Vital Signs: Vital Signs Temp Pulse Resp BP Pulse Ox O2 Del Method O2 Flow Rate 97.6 F L 115 H 18 111/74 97 Nasal Cannula 7 08/04/23 04:04 08/04/23 05:27 08/04/23 04:04 08/04/23 04:04 08/04/23 05:02 08/04/23 05:02 08/04/23 05:02 FiO2 28 08/04/23 01:38 Oxygen Flow Rate (L/min) 7 Oxygen Delivery Method Nasal Cannula Weight: 99 lb 10.383 oz Body Mass Index (BMI) 15.5 Intake & Output: Intake and Output for Last 24 Hours 08/02/23 08/03/23 08/04/23 23:59 23:59 23:59 Intake Total 500 / 500 110 / 110 240 / 240 Output Total 925 / 1425 2150 / 2150 300 / 300 Balance -425 / -925 -2040 / -2040 -60 / -60 Medical Nutrition Assessment Dietitian: Malnutrition Criteria Met Start: 08/03/23 10:40 Freq: Status: Active Protocol: Document 08/03/23 10:40 AG (Rec: 08/03/23 10:40 AG Desktop) Nutrition Malnutrition Evidence of Malnutrition Exists Yes Malnutrition (severe): Chronic Evidenced By Suboptimal Energy Intake ( Severe),Physical Changes ( Severe) Intake Problem Inadequate Oral Intake Etiology related to decreased appetite Signs/Symptoms as evidenced by estimated PO intake meeting <50% of estimated energy needs Status Active Problem Clinical Problem Chronic Disease or Condition Related Malnutrition Etiology severe, chronic malnutrition related to inadequate energy intake Signs/Symptoms as evidenced by estimated PO intake meeting <75% of estimated energy needs > 3 months, ; Severe muscle wasting/fat loss evident per physical exam in orbital, clavicle, acromion, and temporal areas; BMI 15.3 Status Active Problem Recommendation Dietitian Recommendations/Changes continue regular diet- texture /consistency modifications per [employer]. Continue to offer Ensure Plus High Protein 120mL 4x/ day w/medpass; will add magic cups w/ dinner for additional nutrition if consumed. Lab / Micro Data Attestation: I reviewed the patient's lab results. 08/02/23 16:10 08/02/23 16:10 Labs: Laboratory Results - last 24 hr 08/03/23 14:15: B-Natriuretic Peptide 222.6 H Micro: Microbiology 07/29/23 07:50 Blood Culture (Wb) - Pic Blood Culture - Final No growth in 5 days. 07/29/23 08:00 Blood Culture (Wb) - Right Forearm Blood Culture - Final No growth in 5 days. 07/29/23 07:45 Sputum, Induced/Lukens Gram Stain - Final 07/29/23 07:45 Sputum, Induced/Lukens Respiratory Culture - Final Presumptive C albicans 07/24/23 18:17 Blood Culture (Wb) - Anticubital Right Blood Culture - Final No growth in 5 days. 07/24/23 11:17 Blood Culture (Wb) #2 - Anticubital Left Blood Culture - Final No growth in 5 days. 07/24/23 10:35 Blood Culture (Wb) - No Site/Description Given Blood Culture - Final No growth in 5 days. 07/24/23 12:55 Sputum, Induced/Lukens Gram Stain - Final 07/24/23 12:55 Sputum, Induced/Lukens Respiratory Culture - Final Proteus mirabilis Staphylococcus aureus 07/24/23 13:05 Urine Catheter - Lundberg Urine Culture - Final Proteus mirabilis 07/24/23 13:05 Urine Catheter - Lundberg Legionella Antigen - Final 07/24/23 13:05 Urine Catheter - Lundberg Streptococcus pneumoniae Antigen (M - Final 07/24/23 15:55 Mucosa - Nasopharyngeal Respiratory Panel (PCR) - Final 07/24/23 10:55 Nasal Secretion SARS-CoV-2 & FLU Antigen (Rapid) - Final 07/24/23 10:55 Mucosa - Nasopharyngeal RSV RNA Qualitative (PCR) - Final 07/24/23 11:00 Stool Stool Occult Blood (CAROLYNE) - Final ABG Data ABG results: ABG 07/30/23 08:33 Specimen Type ART Sample Site R Radial pH 7.41 Bicarbonate Actual 30.6 H Total CO2 32 Base Excess 6 H O2 Saturation 91 L O2 % 30.0 ABG pCO2 47.9 H ABG pO2 60 L Arnoldo Test Positive O2 Delivery Device Adult Vent Vent Mode CPAP/PS POC PEEP 5 Physical Exam Const alert and no apparent distress General Appearance: cooperative HEENT normocephalic and head/scalp atraumatic Eyes PERRL, EOMs intact bilaterally and conjunctivae normal Neck supple General: trachea midline Chest inspection of chest normal Resp normal respiratory effort Auscultation: diminished lung sounds Cardio S1 normal heart sound and S2 normal heart sound Rhythm: abnormal rhythm GI normal to inspection, nondistended, normoactive bowel sounds Extremity no clubbing, cyanosis or edema Skin no rashes or lesions noted Neuro moves all extremities and no focal motor deficits Psych Mood & Affect: flat affect Charges/Coding Visit Charges Inpatient E&M: 31072 Subs Hosp L2
[2023-08-04] MEDS: Ipratropium 0.5 MG/2.5 ML SOLUTION INHALATION ×4 (07:13→19:38)
[2023-08-04] MEDS: predniSONE 20 MG Tablet 40 MG PO (09:00)
[2023-08-04] MEDS: APIXABAN 5 MG TABLET PO ×2 (09:00→21:10)
[2023-08-04] MEDS: Furosemide 40 MG/4 ML Vial IV ×2 (09:05→18:19)
[2023-08-04] MEDS: Polyethylene Glycol 3350 17 GM PACKET PO (09:05)
[2023-08-04] MEDS: 0.9% Saline Lock 10 ML Syringe IV (09:06)
[2023-08-04] MEDS: Pantoprazole Sodium 40 MG in 0.9% Normal Saline (100mL MB+) 100 ML 330 MG IV (09:08)
[2023-08-04] MEDS: Senna/Docusate Sodium 1 Tablet 2 TABLET PO ×2 (09:08→21:10)
[2023-08-04] MEDS: Acetaminophen 325 MG Tablet 650 MG PO (09:18)
[2023-08-04] MEDS: Ensure Plus High Protein 120 ML LIQUID PO ×3 (09:51→18:19)
--- NOTE | 2023-08-04 10:26 | CASEMGMT ---
SW made a referral to [facility]. However, patient would need to be on 5L or less before a retirement would accept. Patient also needs insurance authorization. Jaimee MIRANDA
--- NOTE | 2023-08-04 16:32 | PN.HOSP_ITS ---
Reason for Visit Reason for Visit: Diagnoses Anemia, unspecified (07/24/23) Unspecified severe protein-calorie malnutrition (07/24/23) Other acidosis (07/24/23) Other cardiomyopathies (07/24/23) Hypotension, unspecified (07/24/23) Pneumonia due to Methicillin susceptible Staphylococcus aureus (07/24/23) Pneumonia due to other Gram-negative bacteria (07/24/23) Chronic obstructive pulmonary disease with (acute) exacerbation (07/24/23) Chronic obstructive pulmonary disease, unspecified (07/24/23) Acute and chronic respiratory failure with hypoxia (07/24/23) Acute and chronic respiratory failure with hypercapnia (07/24/23) Fever, unspecified (07/24/23) Cachexia (07/24/23) Other specified abnormalities of plasma proteins (07/24/23) Other specified abnormal findings of blood chemistry (07/24/23) Objective Data Objective Data Vital Signs: Vital Signs Temp Pulse Resp BP Pulse Ox O2 Del Method O2 Flow Rate 97.6 F L 112 H 22 H 123/64 H 90 Nasal Cannula 6 08/04/23 04:04 08/04/23 15:30 08/04/23 15:30 08/04/23 15:00 08/04/23 11:02 08/04/23 11:02 08/04/23 11:02 FiO2 28 08/04/23 01:38 Oxygen Flow Rate (L/min) 6 Oxygen Delivery Method Nasal Cannula Weight: 99 lb 10.383 oz Body Mass Index (BMI) 15.5 Intake & Output: Intake and Output for Last 24 Hours 08/02/23 08/03/23 08/04/23 23:59 23:59 23:59 Intake Total 500 / 500 110 / 110 350 / 350 Output Total 925 / 1425 2150 / 2150 300 / 300 Balance -425 / -925 -2040 / -2039 50 / 50 Medical Nutrition Assessment Dietitian: Malnutrition Criteria Met Start: 08/03/23 10:40 Freq: Status: Active Protocol: Document 08/03/23 10:40 AG (Rec: 08/03/23 10:40 AG Desktop) Nutrition Malnutrition Evidence of Malnutrition Exists Yes Malnutrition (severe): Chronic Evidenced By Suboptimal Energy Intake ( Severe),Physical Changes ( Severe) Intake Problem Inadequate Oral Intake Etiology related to decreased appetite Signs/Symptoms as evidenced by estimated PO intake meeting <50% of estimated energy needs Status Active Problem Clinical Problem Chronic Disease or Condition Related Malnutrition Etiology severe, chronic malnutrition related to inadequate energy intake Signs/Symptoms as evidenced by estimated PO intake meeting <75% of estimated energy needs > 3 months, ; Severe muscle wasting/fat loss evident per physical exam in orbital, clavicle, acromion, and temporal areas; BMI 15.3 Status Active Problem Recommendation Dietitian Recommendations/Changes continue regular diet- texture /consistency modifications per ENERGY RISK MANAGEMENT ANALYST. Continue to offer Ensure Plus High Protein 120mL 4x/ day w/medpass; will add magic cups w/ dinner for additional nutrition if consumed. Lab / Micro Data 08/02/23 16:10 08/02/23 16:10 Micro: Microbiology 07/29/23 07:50 Blood Culture (Wb) - Pic Blood Culture - Final No growth in 5 days. 07/29/23 08:00 Blood Culture (Wb) - Right Forearm Blood Culture - Final No growth in 5 days. 07/29/23 07:45 Sputum, Induced/Lukens Gram Stain - Final 07/29/23 07:45 Sputum, Induced/Lukens Respiratory Culture - Final Presumptive C albicans 07/24/23 18:17 Blood Culture (Wb) - Anticubital Right Blood Culture - Final No growth in 5 days. 07/24/23 11:17 Blood Culture (Wb) #2 - Anticubital Left Blood Culture - Final No growth in 5 days. 07/24/23 10:35 Blood Culture (Wb) - No Site/Description Given Blood Culture - Final No growth in 5 days. 07/24/23 12:55 Sputum, Induced/Lukens Gram Stain - Final 07/24/23 12:55 Sputum, Induced/Lukens Respiratory Culture - Final Proteus mirabilis Staphylococcus aureus 07/24/23 13:05 Urine Catheter - Lundberg Urine Culture - Final Proteus mirabilis 07/24/23 13:05 Urine Catheter - Lundberg Legionella Antigen - Final 07/24/23 13:05 Urine Catheter - Lundberg Streptococcus pneumoniae Antigen (M - Final 07/24/23 15:55 Mucosa - Nasopharyngeal Respiratory Panel (PCR) - Final 07/24/23 10:55 Nasal Secretion SARS-CoV-2 & FLU Antigen (Rapid) - Final 07/24/23 10:55 Mucosa - Nasopharyngeal RSV RNA Qualitative (PCR) - Final 07/24/23 11:00 Stool Stool Occult Blood (CAROLYNE) - Final Physical Exam Narrative Seen and examined. Overnight events noted. Discussed with the nursing staff. Afebrile. Patient is still short of breath and tachypneic, requiring 6 L of oxygen via nasal cannula. Patient states she wants to go home but she is still on high requirement of oxygen. Sinus tachycardia. Physical exam General: Awake, mild lethargic, fatigue. Oriented x3, Cooperative, BMI 17.3 kg/m?, severe malnutrition. HEENT: Atraumatic, PERRLA, EOMI, Normocephalic Oral: Oral mucosa dry. On high flow oxygen Neck: Supple, No JVD, Negative Carotid Bruits Lungs: Air entry severely diminished in bilateral lung bases. Bilateral expiratory rhonchi. Dyspnea at rest. Cardiovascular: A-fib rhythm, Normal S1, Normal S2, No murmurs Abdomen: Bowel Sounds Present, Soft, Non Tender, Non-Distended : Lundberg catheter with clear urine. 350 mill since morning. No renal angle tenderness. No suprapubic tenderness. Extremities: No edema, Capillary Refill Less than 3 Seconds Skin: Subcutaneous bruise and ecchymosis on both upper extremities. Musculoskeletal: No Tenderness to Palpation of Joints or Extremities. Moderate chronic muscle atrophy of extremities including thighs and calf muscles Neurological: Cranial nerves II-XII grossly intact, DTR 2+/4. No acute focal neurological deficit. Psych/Mental Status: Flat affect. Assessment & Plan Assessment/Plan (1) Severe malnutrition: (2) Acute anemia: (3) Hypotension: (4) Staphylococcus aureus pneumonia: (5) Proteus pneumonia: (6) Stage 4 very severe COPD by GOLD classification: (7) Respiratory acidosis: (8) Fever: PLAN: Plan Acute on chronic hypoxic and hypercapnic respiratory failure secondary to acute exacerbation of COPD/Staph aureus and Proteus pneumonia -Placed on BiPAP on presentation however pH did not improve after 2 hours on BiPAP and therefore we intubated her for persistent hypercapnia and somnolence -Intubated 07/23/2023 -Hopeful for extubation today -Patient remains on mechanical ventilation with an FiO2 of 35% -Thus far doing well and her breathing trial -At baseline patient uses 2.5 L with exertion only -Sputum cultures are positive for Proteus and Staph aureus (MSSA) -Solu-Medrol changed to prednisone. 07/31: Patient was extubated on 07/30/2023. Currently on oxygen through nasal cannula and BiPAP at night. 1 week of Levaquin will be completed on 08/01/2023. On DuoNeb. Diuresis as per tolerated. Continue aggressive bronchopulmonary hygiene 08/01: Patient on 8 L of oxygen, short of breath, dyspnea at rest. Sinus tachycardia with arrhythmia heart rate in 130s. Patient on metoprolol 50 mg 3 times daily. Advised to put on BiPAP/AVAPS. 08/02: Patient on 10 L of high flow oxygen. Labored and tachypneic breathing in respiratory distress. Advised to put on Airvo/BiPAP, NIPPV patient is tired of increased work of breathing. 08/03: 9 L of oxygen. Still tachypneic but looks better than yesterday. 08/04: On 6 L to 7 of oxygen. Patient still very short of breath with sinus tachycardia. Patient did not require Lundberg catheterization therefore discontinue. Fever, Tmax 101.4 Fahrenheit. Patient is covered with antibiotics. Was thought may be related to Precedex. Precedex is discontinued. UA was not consistent with infection -MRSA PCR is negative so we will discontinue bank 08/02: Temperature is 99's but no high-grade fever. 08/03: Clinical temperature is similar to 99's. No high-grade fever. Troponin elevation -Type II NSTEMI secondary to acute respiratory failure as noted above -Echocardiogram shows an EF of 40 to 45% and diffuse mitral valve thickening whi ch is stable compared to previous -No acute ischemia noted on EKG Acute on chronic anemia - hemoglobin is around 8.8/30.1.MCV normal. Reticulocyte count 223,000. No obvious sign for acute GI bleed. 08/01: Hemoglobin improving better. H&H 9.2/32%. 08/02: Hemoglobin 9.2. Platelet count 267. PAF -Patient has history of paroxysmal atrial fibrillation that especially worsens when she is in respiratory distress as anticipated cardiac monitor shows patient is in A-fib. -Continue metoprolol to 50 mg p.o. 3 times daily -Continue home apixaban 08/01: Metoprolol dose increased to 75 mg 3 times daily. Currently in sinus rhythm. Patient is sinus tachycardia with arrhythmia most likely driven by acute hypoxic respiratory failure. 08/02: I think better control of the respiratory failure will improve heart rate. Patient needs NIPPV. HFrEF-nonischemic cardiomyopathy -Last echocardiogram from 07/10/2022 shows an EF of 40% with mild global hypokinesis of the LV and mild to moderate mitral valve insufficiency -Echocardiogram stable with an EF of 40 to 45% with moderate mitral valve insufficiency -Hold home lisinopril -Continue metoprolol to 50 twice daily -Would recommend outpatient cardiology follow-up with outpatient noninvasive stress testing after stabilized clinically if echo shows no wall motion abnormality -Continue Lasix 20 mg IV twice daily -Patient is diuresing well and this will improve the likelihood of her getting extubated Mild hypokalemia. Patient on Lasix. 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 diet 08/03: Potassium is 3.8. COPD Gold stage IV -Baseline FEV1 was 25% predicted -Wears 2.5 L of oxygen at baseline -Continue supplemental oxygen as noted -Hold inhalers -Pulmonary toilet as above -Follows with Dr. Enamorado as an outpatient -Still smoking -A questionable whether or not patient will be extubated due to the severity of her lung disease at baseline and this has been discussed previously with the patient with the result of her always wanting to be intubated as she was on adm ission Hypertension -Hold home lisinopril -Continue metoprolol to 50 mg p.o. twice daily -As needed hydralazine Tobacco abuse -Patient with ongoing tobacco abuse -Recommend cessation Depression -Patient is no longer taking anything for this DVT prophylaxis -Continue apixaban CODE STATUS -Full code is reviewed with the prior to leaving the emergency department by the emergency department physician Charges/Coding Visit Charges Inpatient E&M: 91870 [facility] Hosp L3
--- NOTE | 2023-08-04 17:49 | CASEMGMT ---
[facility] is considering patient, but would like to see how she does with therapy Monday. Jaimee MIRANDA
[2023-08-04] MEDS: Ondansetron 4 MG/2 ML Vial IV (20:10)
[2023-08-04 20:24] LABS: Absolute Lymphocyte Count 1.08 X10^3/uL (0.83-4.51); Basophil# 0.01 X10^3/uL; Basophil% 0.1 % (0-1); Eosinophil# 0.01 X10^3/uL; Eosinophils% 0.1 % (0-5); Hematocrit 35.7 % (37-47); Lymphocyte # 1.08 X10^3/ul (0.83-4.51); Mean Corpuscular Hgb 24.5 pg (27.0-32.0); Mean Corpuscular Volume 87.5 fL (81-99); Mean Platelet Vol. 11.3 fl (6.2-12.0); Monocyte# 0.65 X10^3/uL; NRBC Flagged by Analyzer 0 % (0-5); Neutrophil # 9.01 X10^3/uL (2.7-7.7); Neutrophil % 83.3 % (47-70); Platelet Count 336 K/mm3 (150-450); RBC Distribution Width CV 18.2 % (11.6-14.6); Red Blood Count 4.08 M/mm3 (4.2-5.4); White Blood Count 10.8 K/mm3 (4.4-11.0)
[2023-08-04 20:38] LABS: Anion Gap 3 (5-15); BUN 28 mg/dL (7-18); BUN/Creat Ratio 59.2 RATIO (10-20); Calcium,Total 8.9 mg/dL (8.5-10.1); Chloride 97 mmol/L (98-107); Creatinine, Serum 0.47 mg/dL (0.55-1.02); EST Glomerular Filtration Rate 141 mL/min (>60); Est Glom Filt Rate - Afr Amer 170 mL/min (>60); Estimated Creatinine Clearance 86.29 ml/min; Glucose 147 mg/dL (74-106); Potassium 3.3 mmol/L (3.5-5.1); Sodium Level 141 mmol/L (136-145)
[2023-08-04] MEDS: Menthol/Lanolin/Calamine/Znox 113 GM Tube 1 APPLIC TOPICAL (21:11)
[2023-08-04] MEDS: Potassium Chloride Oral Tablet 20 MEQ 40 MEQ PO (22:31)
[2023-08-05] VITALS (13 sets, daily range): BP systolic 106–128; BP diastolic 43–55; PULSE 73–91; RESP 16–25; TEMP 36.3–36.7; O2SAT 90–97; BMI 15.3
[2023-08-05] MEDS: Ondansetron 4 MG/2 ML Vial IV ×2 (04:10→19:58)
[2023-08-05] MEDS: Metoprolol Tartrate 50 MG Tablet 75 MG PO ×3 (05:13→22:17)
[2023-08-05] MEDS: busPIRone 5 MG Tablet PO ×3 (05:13→22:17)
[2023-08-05] MEDS: Ipratropium 0.5 MG/2.5 ML SOLUTION INHALATION ×4 (06:53→19:12)
[2023-08-05] MEDS: predniSONE 20 MG Tablet 40 MG PO (08:55)
[2023-08-05] MEDS: APIXABAN 5 MG TABLET PO ×2 (08:56→22:17)
[2023-08-05] MEDS: Menthol/Lanolin/Calamine/Znox 113 GM Tube 1 APPLIC TOPICAL ×2 (08:56→22:20)
[2023-08-05] MEDS: Ensure Plus High Protein 120 ML LIQUID PO ×3 (08:58→22:20)
[2023-08-05] MEDS: Pantoprazole Sodium 40 MG in 0.9% Normal Saline (100mL MB+) 100 ML 330 MG IV (08:58)
--- NOTE | 2023-08-05 12:27 | PN.HOSP_ITS ---
Reason for Visit Reason for Visit: Diagnoses Anemia, unspecified (07/24/23) Unspecified severe protein-calorie malnutrition (07/24/23) Other acidosis (07/24/23) Other cardiomyopathies (07/24/23) Hypotension, unspecified (07/24/23) Pneumonia due to Methicillin susceptible Staphylococcus aureus (07/24/23) Pneumonia due to other Gram-negative bacteria (07/24/23) Chronic obstructive pulmonary disease with (acute) exacerbation (07/24/23) Chronic obstructive pulmonary disease, unspecified (07/24/23) Acute and chronic respiratory failure with hypoxia (07/24/23) Acute and chronic respiratory failure with hypercapnia (07/24/23) Fever, unspecified (07/24/23) Cachexia (07/24/23) Other specified abnormalities of plasma proteins (07/24/23) Other specified abnormal findings of blood chemistry (07/24/23) Objective Data Objective Data Vital Signs: Vital Signs Temp Pulse Resp BP Pulse Ox O2 Del Method O2 Flow Rate 98.0 F 88 25 H 106/53 L 95 High Flow 8 08/05/23 07:34 08/05/23 11:03 08/05/23 11:03 08/05/23 07:34 08/05/23 07:34 08/05/23 07:34 08/05/23 07:34 FiO2 28 08/04/23 01:38 Oxygen Flow Rate (L/min) 8 Oxygen Delivery Method High Flow Weight: 97 lb 10.636 oz Body Mass Index (BMI) 15.3 Intake & Output: Intake and Output for Last 24 Hours 08/03/23 08/04/23 08/05/23 23:59 23:59 23:59 Intake Total 110 / 110 830 / 830 110 / 110 Output Total 2150 / 2150 1150 / 1150 250 / 250 Balance -2040 / -2040 -320 / -320 -140 / -140 Medical Nutrition Assessment Dietitian: Malnutrition Criteria Met Start: 08/03/23 10:40 Freq: Status: Active Protocol: Document 08/03/23 10:40 AG (Rec: 08/03/23 10:40 AG Desktop) Nutrition Malnutrition Evidence of Malnutrition Exists Yes Malnutrition (severe): Chronic Evidenced By Suboptimal Energy Intake ( Severe),Physical Changes ( Severe) Intake Problem Inadequate Oral Intake Etiology related to decreased appetite Signs/Symptoms as evidenced by estimated PO intake meeting <50% of estimated energy needs Status Active Problem Clinical Problem Chronic Disease or Condition Related Malnutrition Etiology severe, chronic malnutrition related to inadequate energy intake Signs/Symptoms as evidenced by estimated PO intake meeting <75% of estimated energy needs > 3 months, ; Severe muscle wasting/fat loss evident per physical exam in orbital, clavicle, acromion, and temporal areas; BMI 15.3 Status Active Problem Recommendation Dietitian Recommendations/Changes continue regular diet- texture /consistency modifications per SUPERVISOR SUNGLASSES. Continue to offer Ensure Plus High Protein 120mL 4x/ day w/medpass; will add magic cups w/ dinner for additional nutrition if consumed. Lab / Micro Data 08/04/23 20:05 08/04/23 20:05 Labs: Laboratory Results - last 24 hr 08/04/23 20:05: WBC 10.8, RBC 4.08 L, Hgb 10.0 L, Hct 35.7 L, MCV 87.5, MCH 24.5 L, MCHC 28.0 L, RDW Std Deviation 57.0 H, RDW Coeff of Sami 18.2 H, Plt Count 336, MPV 11.3, Immature Gran % (Auto) 0.500, Neut % (Auto) 83.3 H, Lymph % (Auto ) 10.0 L, [place] % (Auto) 6.0, Eos % (Auto) 0.1, Baso % (Auto) 0.1, Absolute Neuts (auto) 9.0 H, Absolute Lymphs (auto) 1.08, Nucleated RBC % 0, Sodium 141, Potassium 3.3 L, Chloride 97 L, Carbon Dioxide 41.0 H, Anion Gap 3 L, BUN 28 H, Creatinine 0.47 L, Estim Creat Clear Calc 86.29, Est GFR (MDRD) Af Amer 170, Est GFR (MDRD) Non-Af 141, BUN/Creatinine Ratio 59.2 H, Glucose 147 H, Calcium 8.9 Micro: Microbiology 07/29/23 07:50 Blood Culture (Wb) - Pic Blood Culture - Final No growth in 5 days. 07/29/23 08:00 Blood Culture (Wb) - Right Forearm Blood Culture - Final No growth in 5 days. 07/29/23 07:45 Sputum, Induced/Lukens Gram Stain - Final 07/29/23 07:45 Sputum, Induced/Lukens Respiratory Culture - Final Presumptive C albicans 07/24/23 18:17 Blood Culture (Wb) - Anticubital Right Blood Culture - Final No growth in 5 days. 07/24/23 11:17 Blood Culture (Wb) #2 - Anticubital Left Blood Culture - Final No growth in 5 days. 07/24/23 10:35 Blood Culture (Wb) - No Site/Description Given Blood Culture - Final No growth in 5 days. 07/24/23 12:55 Sputum, Induced/Lukens Gram Stain - Final 07/24/23 12:55 Sputum, Induced/Lukens Respiratory Culture - Final Proteus mirabilis Staphylococcus aureus 07/24/23 13:05 Urine Catheter - Lundberg Urine Culture - Final Proteus mirabilis 07/24/23 13:05 Urine Catheter - Lundberg Legionella Antigen - Final 07/24/23 13:05 Urine Catheter - Lundberg Streptococcus pneumoniae Antigen (M - Final 07/24/23 15:55 Mucosa - Nasopharyngeal Respiratory Panel (PCR) - Final 07/24/23 10:55 Nasal Secretion SARS-CoV-2 & FLU Antigen (Rapid) - Final 07/24/23 10:55 Mucosa - Nasopharyngeal RSV RNA Qualitative (PCR) - Final 07/24/23 11:00 Stool Stool Occult Blood (CAROLYNE) - Final Physical Exam Narrative Seen and examined. Overnight events noted. Discussed with the nursing staff. Afebrile. Patient is still short of breath and tachypneic, requiring 8 L of oxygen via nasal cannula. Patient states she wants to go home but she is still on high requirement of oxygen. Sinus tachycardia. Physical exam General: Awake, Oriented x3, Cooperative, BMI 17.3 kg/m?, severe malnutrition. HEENT: Atraumatic, PERRLA, EOMI, Normocephalic Oral: Oral mucosa moist. On high flow oxygen Neck: Supple, No JVD, Negative Carotid Bruits Lungs: Air entry severely diminished in bilateral lung bases. Bilateral expi ratory rhonchi. Dyspnea at rest. Cardiovascular: A-fib rhythm, Normal S1, Normal S2, No murmurs Abdomen: Bowel Sounds Present, Soft, Non Tender, Non-Distended : Lundberg catheter with clear urine. 350 mill since morning. No renal angle tenderness. No suprapubic tenderness. Extremities: No edema, Capillary Refill Less than 3 Seconds Skin: Subcutaneous bruise and ecchymosis on both upper extremities. Musculoskeletal: No Tenderness to Palpation of Joints or Extremities. Moderate chronic muscle atrophy of extremities including thighs and calf muscles Neurological: Cranial nerves II-XII grossly intact, DTR 2+/4. No acute focal neurological deficit. Psych/Mental Status: Flat affect. Assessment & Plan Assessment/Plan (1) Severe malnutrition: (2) Acute anemia: (3) Hypotension: (4) Staphylococcus aureus pneumonia: (5) Proteus pneumonia: (6) Stage 4 very severe COPD by GOLD classification: (7) Respiratory acidosis: (8) Fever: PLAN: Plan Acute on chronic hypoxic and hypercapnic respiratory failure secondary to acute exacerbation of COPD/Staph aureus and Proteus pneumonia -Placed on BiPAP on presentation however pH did not improve after 2 hours on BiPAP and therefore we intubated her for persistent hypercapnia and somnolence -Intubated 07/23/2023 -Hopeful for extubation today -Patient remains on mechanical ventilation with an FiO2 of 35% -Thus far doing well and her breathing trial -At baseline patient uses 2.5 L with exertion only -Sputum cultures are positive for Proteus and Staph aureus (MSSA) -Solu-Medrol changed to prednisone. 07/31: Patient was extubated on 07/30/2023. Currently on oxygen through nasal cannula and BiPAP at night. 1 week of Levaquin will be completed on 08/01/2023. On DuoNeb. Diuresis as per tolerated. Continue aggressive bronchopulmonary hyg iene 08/01: Patient on 8 L of oxygen, short of breath, dyspnea at rest. Sinus tachycardia with arrhythmia heart rate in 130s. Patient on metoprolol 50 mg 3 times daily. Advised to put on BiPAP/AVAPS. 08/02: Patient on 10 L of high flow oxygen. Labored and tachypneic breathing in respiratory distress. Advised to put on Airvo/BiPAP, NIPPV patient is tired of increased work of breathing. 08/03: 9 L of oxygen. Still tachypneic but looks better than yesterday. 08/04: On 6 L to 7 of oxygen. Patient still very short of breath with sinus tachycardia. Patient did not require Lundberg catheterization therefore discontinue. 08/05: No significant change. Patient still short of breath on 8 L of oxygen Fever, Tmax 101.4 Fahrenheit. Patient is covered with antibiotics. Was thought may be related to Precedex. Precedex is discontinued. UA was not consistent with infection -MRSA PCR is negative so we will discontinue bank 08/02: Temperature is 99's but no high-grade fever. 08/03: Clinical temperature is similar to 99's. No high-grade fever. 07/25: Patient is afebrile. Troponin elevation -Type II NSTEMI secondary to acute respiratory failure as noted above -Echocardiogram shows an EF of 40 to 45% and diffuse mitral valve thickening which is stable compared to previous -No acute ischemia noted on EKG Acute on chronic anemia - hemoglobin is around 8.8/30.1.MCV normal. Reticulocyte count 223,000. No obvious sign for acute GI bleed. 08/01: Hemoglobin improving better. H&H 9.2/32%. 08/02: Hemoglobin 9.2. Platelet count 267. PAF -Patient has history of paroxysmal atrial fibrillation that especially worsens when she is in respiratory distress as anticipated personnel monitor shows patient is in A-fib. -Continue metoprolol to 50 mg p.o. 3 times daily -Continue home apixaban 08/01: Metoprolol dose increased to 75 mg 3 times daily. Currently in sinus rhythm. Patient is sinus tachycardia with arrhythmia most likely driven by acute hypoxic respiratory failure. 08/02: I think better control of the respiratory failure will improve heart rate. Patient needs NIPPV. HFrEF-nonischemic cardiomyopathy -Last echocardiogram from 07/10/2022 shows an EF of 40% with mild global hypokinesis of the LV and mild to moderate mitral valve insufficiency -Echocardiogram stable with an EF of 40 to 45% with moderate mitral valve insufficiency -Hold home lisinopril -Continue metoprolol to 50 twice daily -Would recommend outpatient cardiology follow-up with outpatient noninvasive stress testing after stabilized clinically if echo shows no wall motion abnormality -Continue Lasix 20 mg IV twice daily -Patient is diuresing well and this will improve the likelihood of her getting extubated Mild hypokalemia. Patient on Lasix. 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 diet 08/03: Potassium is 3.8. COPD Gold stage IV -Baseline FEV1 was 25% predicted -Wears 2.5 L of oxygen at baseline -Continue supplemental oxygen as noted -Hold inhalers -Pulmonary toilet as above -Follows with Dr. Enamorado as an outpatient -Still smoking -A questionable whether or not patient will be extubated due to the severity of her lung disease at baseline and this has been discussed previously with the patient with the result of her always wanting to be intubated as she was on admission Hypertension -Hold home lisinopril -Continue metoprolol to 50 mg p.o. twice daily -As needed hydralazine Tobacco abuse -Patient with ongoing tobacco abuse -Recommend cessation Depression -Patient is no longer taking anything for this DVT prophylaxis -Continue apixaban CODE STATUS -Full code is reviewed with the prior to leaving the emergency department by the emergency department physician Charges/Coding Visit Charges Inpatient E&M: 82061 [facility]s Hosp L2
[2023-08-05] MEDS: 0.9% Saline Lock 10 ML Syringe IV (19:58)
[2023-08-05] MEDS: Acetaminophen 325 MG Tablet 650 MG PO (19:58)
[2023-08-06] VITALS (20 sets, daily range): BP systolic 103–145; BP diastolic 50–72; PULSE 67–98; RESP 12–24; TEMP 36.2–36.9; O2SAT 81–97; BMI 15.5
[2023-08-06] MEDS: busPIRone 5 MG Tablet PO ×3 (06:12→21:45)
[2023-08-06] MEDS: Metoprolol Tartrate 50 MG Tablet 75 MG PO ×3 (06:13→21:42)
[2023-08-06] MEDS: 0.9% Saline Lock 10 ML Syringe IV (06:14)
[2023-08-06] MEDS: Acetaminophen 325 MG Tablet 650 MG PO ×2 (06:38→15:05)
[2023-08-06] MEDS: Ipratropium 0.5 MG/2.5 ML SOLUTION INHALATION ×4 (06:57→19:01)
--- NOTE | 2023-08-06 07:40 | NURSING ---
Patient noted to be hypoxic at 81% upon 6LNCO2 this morning. Increased to 8LNCO2 and compensated 10 minutes later at 95%. Patient then adjusted patient to 7LNCO2 and patient remained at 94%.
[2023-08-06] MEDS: predniSONE 20 MG Tablet 40 MG PO (08:12)
[2023-08-06] MEDS: APIXABAN 5 MG TABLET PO ×2 (08:13→21:45)
[2023-08-06] MEDS: Menthol/Lanolin/Calamine/Znox 113 GM Tube 1 APPLIC TOPICAL ×2 (08:13→21:45)
[2023-08-06] MEDS: Ensure Plus High Protein 120 ML LIQUID PO ×3 (08:15→21:42)
[2023-08-06] MEDS: Pantoprazole Sodium 40 MG in 0.9% Normal Saline (100mL MB+) 100 ML 330 MG IV (09:24)
--- NOTE | 2023-08-06 11:32 | PCM.PN.HOSP ---
Reason for Visit Reason for Visit: Diagnoses Anemia, unspecified (07/24/23) Unspecified severe protein-calorie malnutrition (07/24/23) Other acidosis (07/24/23) Other cardiomyopathies (07/24/23) Hypotension, unspecified (07/24/23) Pneumonia due to Methicillin susceptible Staphylococcus aureus (07/24/23) Pneumonia due to other Gram-negative bacteria (07/24/23) Chronic obstructive pulmonary disease with (acute) exacerbation (07/24/23) Chronic obstructive pulmonary disease, unspecified (07/24/23) Acute and chronic respiratory failure with hypoxia (07/24/23) Acute and chronic respiratory failure with hypercapnia (07/24/23) Fever, unspecified (07/24/23) Cachexia (07/24/23) Other specified abnormalities of plasma proteins (07/24/23) Other specified abnormal findings of blood chemistry (07/24/23) Objective Data Objective Data Vital Signs: Vital Signs Temp Pulse Resp BP Pulse Ox O2 Del Method O2 Flow Rate 97.9 F 67 18 111/58 L 92 Nasal Cannula 6 08/06/23 06:00 08/06/23 06:59 08/06/23 06:59 08/06/23 06:13 08/06/23 06:59 08/06/23 06:59 08/06/23 06:59 FiO2 28 08/04/23 01:38 Oxygen Flow Rate (L/min) 6 Oxygen Delivery Method Nasal Cannula Weight: 99 lb 6.856 oz Body Mass Index (BMI) 15.5 Intake & Output: Intake and Output for Last 24 Hours 08/04/23 08/05/23 08/06/23 23:59 23:59 23:59 Intake Total 830 / 830 950 / 950 110 / 110 Output Total 1150 / 1150 725 / 725 200 / 200 Balance -320 / -320 225 / 225 -90 / -90 Medical Nutrition Assessment Dietitian: Malnutrition Criteria Met Start: 08/03/23 10:40 Freq: Status: Active Protocol: Document 08/03/23 10:40 AG (Rec: 08/03/23 10:40 AG Desktop) Nutrition Malnutrition Evidence of Malnutrition Exists Yes Malnutrition (severe): Chronic Evidenced By Suboptimal Energy Intake ( Severe),Physical Changes ( Severe) Intake Problem Inadequate Oral Intake Etiology related to decreased appetite Signs/Symptoms as evidenced by estimated PO intake meeting <50% of estimated energy needs Status Active Problem Clinical Problem Chronic Disease or Condition Related Malnutrition Etiology severe, chronic malnutrition related to inadequate energy intake Signs/Symptoms as evidenced by estimated PO intake meeting <75% of estimated energy needs > 3 months, ; Severe muscle wasting/fat loss evident per physical exam in orbital, clavicle, acromion, and temporal areas; BMI 15.3 Status Active Problem Recommendation Dietitian Recommendations/Changes continue regular diet- texture /consistency modifications per SAFETY SPECIALIST. Continue to offer Ensure Plus High Protein 120mL 4x/ day w/medpass; will add magic cups w/ dinner for additional nutrition if consumed. Lab / Micro Data 08/04/23 20:05 08/04/23 20:05 Micro: Microbiology 07/29/23 07:50 Blood Culture (Wb) - Pic Blood Culture - Final No growth in 5 days. 07/29/23 08:00 Blood Culture (Wb) - Right Forearm Blood Culture - Final No growth in 5 days. 07/29/23 07:45 Sputum, Induced/Lukens Gram Stain - Final 07/29/23 07:45 Sputum, Induced/Lukens Respiratory Culture - Final Presumptive C albicans 07/24/23 18:17 Blood Culture (Wb) - Anticubital Right Blood Culture - Final No growth in 5 days. 07/24/23 11:17 Blood Culture (Wb) #2 - Anticubital Left Blood Culture - Final No growth in 5 days. 07/24/23 10:35 Blood Culture (Wb) - No Site/Description Given Blood Culture - Final No growth in 5 days. 07/24/23 12:55 Sputum, Induced/Lukens Gram Stain - Final 07/24/23 12:55 Sputum, Induced/Lukens Respiratory Culture - Final Proteus mirabilis Staphylococcus aureus 07/24/23 13:05 Urine Catheter - Lundberg Urine Culture - Final Proteus mirabilis 07/24/23 13:05 Urine Catheter - Lundberg Legionella Antigen - Final 07/24/23 13:05 Urine Catheter - Lundberg Streptococcus pneumoniae Antigen (M - Final 07/24/23 15:55 Mucosa - Nasopharyngeal Respiratory Panel (PCR) - Final 07/24/23 10:55 Nasal Secretion SARS-CoV-2 & FLU Antigen (Rapid) - Final 07/24/23 10:55 Mucosa - Nasopharyngeal RSV RNA Qualitative (PCR) - Final 07/24/23 11:00 Stool Stool Occult Blood (CAROLYNE) - Final Physical Exam Narrative Seen and examined. Overnight events noted. Discussed with the nursing staff. Afebrile. Patient wants to go home but she is on 8 L of high flow oxygen. She states she was not on BiPAP last night. Sinus tachycardia has resolved. Physical exam General: Awake, Oriented x3, Cooperative, BMI 17.3 kg/m?, severe malnutrition. HEENT: Atraumatic, PERRLA, EOMI, Normocephalic Oral: Oral mucosa moist. On high flow oxygen Neck: Supple, No JVD, Negative Carotid Bruits Lungs: Air entry severely diminished in bilateral lung bases. Bilateral expiratory rhonchi. Dyspnea at rest. Cardiovascular: Sinus rhythm, sometimes irregular. Normal S1, Normal S2, No murmurs Abdomen: Bowel Sounds Present, Soft, Non Tender, Non-Distended : Lundberg catheter with clear urine. 350 mill since morning. No renal angle tenderness. No suprapubic tenderness. Extremities: No edema, Capillary Refill Less than 3 Seconds Skin: Subcutaneous bruise and ecchymosis on both upper extremities. Musculoskeletal: No Tenderness to Palpation of Joints or Extremities. Moderate chronic muscle atrophy of extremities including thighs and calf muscles Neurological: Cranial nerves II-XII grossly intact, DTR 2+/4. No acute focal neurological deficit. Psych/Mental Status: Flat affect. Assessment & Plan Assessment/Plan (1) Severe malnutrition: (2) Acute anemia: (3) Hypotension: (4) Staphylococcus aureus pneumonia: (5) Proteus pneumonia: (6) Stage 4 very severe COPD by GOLD classification: (7) Respiratory acidosis: (8) Fever: PLAN: Plan Acute on chronic hypoxic and hypercapnic respiratory failure secondary to acute exacerbation of COPD/Staph aureus and Proteus pneumonia -Placed on BiPAP on presentation however pH did not improve after 2 hours on BiPAP and therefore we intubated her for persistent hypercapnia and somnolence -Intubated 07/23/2023 -Hopeful for extubation today -Patient remains on mechanical ventilation with an FiO2 of 35% -Thus far doing well and her breathing trial -At baseline patient uses 2.5 L with exertion only -Sputum cultures are positive for Proteus and Staph aureus (MSSA) -Solu-Medrol changed to prednisone. 07/31: Patient was extubated on 07/30/2023. Currently on oxygen through nasal cannula and BiPAP at night. 1 week of Levaquin will be completed on 08/01/2023. On DuoNeb. Diuresis as per tolerated. Continue aggressive bronchopulmonary hygiene 08/01: Patient on 8 L of oxygen, short of breath, dyspnea at rest. Sinus tachycardia with arrhythmia heart rate in 130s. Patient on metoprolol 50 mg 3 times daily. Advised to put on BiPAP/AVAPS. 08/02: Patient on 10 L of high flow oxygen. Labored and tachypneic breathing in respiratory distress. Advised to put on Airvo/BiPAP, NIPPV patient is tired of increased work of breathing. 08/03: 9 L of oxygen. Still tachypneic but looks better than yesterday. 08/04: On 6 L to 7 of oxygen. Patient still very short of breath with sinus tachycardia. Patient did not require Lundebrg catheterization therefore discontinue. 08/05: No significant change. Patient still short of breath on 8 L of oxygen 08/06: Patient still on high flow oxygen. Recommends BiPAP at night or during nap to decrease work of breathing and improved ventilation and alveolar recruitment. Fever, Tmax 101.4 Fahrenheit. Patient is covered with antibiotics. Was thought may be related to Precedex. Precedex is discontinued. UA was not consistent with infection -MRSA PCR is negative so we will discontinue bank 08/02: Temperature is 99's but no high-grade fever. 08/03: Clinical temperature is similar to 99's. No high-grade fever. 08/04: Patient is afebrile. Troponin elevation -Type II NSTEMI secondary to acute respiratory failure as noted above -Echocardiogram shows an EF of 40 to 45% and diffuse mitral valve thickening which is stable compared to previous -No acute ischemia noted on EKG Acute on chronic anemia - hemoglobin is around 8.8/30.1.MCV normal. Reticulocyte count 223,000. No obvious sign for acute GI bleed. 08/01: Hemoglobin improving better. H&H 9.2/32%. 08/02: Hemoglobin 9.2. Platelet count 267. 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 -Continue metoprolol to 50 mg p.o. 3 times daily -Continue home apixaban 08/01: Metoprolol dose increased to 75 mg 3 times daily. Currently in sinus rhythm. Patient is sinus tachycardia with arrhythmia most likely driven by acute hypoxic respiratory failure. 08/02: I think better control of the respiratory failure will improve heart rate. Patient needs NIPPV. 08/06: Patient fluctuates between A-fib and sinus rhythm. Currently sinus rhythm. HFrEF-nonischemic cardiomyopathy -Last echocardiogram from 07/10/2022 shows an EF of 40% with mild global hypokinesis of the LV and mild to moderate mitral valve insufficiency -Echocardiogram stable with an EF of 40 to 45% with moderate mitral valve insufficiency -Hold home lisinopril -Continue metoprolol to 50 twice daily -Would recommend outpatient cardiology follow-up with outpatient noninvasive stress testing after stabilized clinically if echo shows no wall motion abnormality -Continue Lasix 20 mg IV twice daily -Patient is diuresing well and this will improve the likelihood of her getting extubated Mild hypokalemia. Patient on Lasix. 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 diet 08/03: Potassium is 3.8. COPD Gold stage IV -Baseline FEV1 was 25% predicted -Wears 2.5 L of oxygen at baseline -Continue supplemental oxygen as noted -Hold inhalers -Pulmonary toilet as above -Follows with Dr. Enamorado as an outpatient -Still smoking -A questionable whether or not patient will be extubated due to the severity of her lung disease at baseline and this has been discussed previously with the patient with the result of her always wanting to be intubated as she was on admission Hypertension -Hold home lisinopril -Continue metoprolol to 50 mg p.o. twice daily -As needed hydralazine Tobacco abuse -Patient with ongoing tobacco abuse -Recommend cessation Depression -Patient is no longer taking anything for this DVT prophylaxis -Continue apixaban CODE STATUS -Full code is reviewed with the prior to leaving the emergency department by the emergency department physician Charges/Coding Visit Charges Inpatient E&M: 11529 [facility] H[facility] L3
[2023-08-06] MEDS: Ondansetron 4 MG/2 ML Vial IV (18:38)
[2023-08-06] MEDS: Senna/Docusate Sodium 1 Tablet 2 TABLET PO (21:42)
[2023-08-07] VITALS (19 sets, daily range): BP systolic 93–122; BP diastolic 47–90; PULSE 74–113; RESP 12–34; TEMP 36.6–36.8; O2SAT 83–99; BMI 15.5
[2023-08-07] MEDS: Acetaminophen 325 MG Tablet 650 MG PO (04:03)
[2023-08-07 04:07] LABS: Absolute Lymphocyte Count 1.25 X10^3/uL (0.83-4.51); Absolute Neutrophil Count 10.3 X10^3/uL (2.0-7.7); Basophil# 0.01 X10^3/uL; Basophil% 0.1 % (0-1); Eosinophil# 0.04 X10^3/uL; Eosinophils% 0.3 % (0-5); Hematocrit 33.1 % (37-47); Hemoglobin 9.2 g/dL (12.0-15.0); Lymphocyte # 1.25 X10^3/ul (0.83-4.51); Lymphocyte % 10.1 % (19-41); Mean Corp Hgb Conc 27.8 g/dL (32-36); Mean Corpuscular Hgb 25.6 pg (27.0-32.0); Mean Corpuscular Volume 92.2 fL (81-99); Mean Platelet Vol. 10.4 fl (6.2-12.0); Monocyte# 0.66 X10^3/uL; Monocyte% 5.4 % (0-10); NRBC Flagged by Analyzer 0 % (0-5); Neutrophil # 10.32 X10^3/uL (2.7-7.7); Neutrophil % 83.7 % (47-70); Platelet Count 258 K/mm3 (150-450); RBC Distribution Width CV 16.9 % (11.6-14.6); RBC Distribution Width SD 56.1 fl (35.1-43.9); Red Blood Count 3.59 M/mm3 (4.2-5.4); White Blood Count 12.3 K/mm3 (4.4-11.0)
[2023-08-07 04:23] LABS: Anion Gap 2 (5-15); BUN 20 mg/dL (7-18); BUN/Creat Ratio 59.3 RATIO (10-20); Calcium,Total 8.3 mg/dL (8.5-10.1); Chloride 100 mmol/L (98-107); Creatinine, Serum 0.34 mg/dL (0.55-1.02); EST Glomerular Filtration Rate 208 mL/min (>60); Est Glom Filt Rate - Afr Amer 251 mL/min (>60); Estimated Creatinine Clearance 119.01 ml/min; Glucose 113 mg/dL (74-106); Potassium 4.7 mmol/L (3.5-5.1); Sodium Level 141 mmol/L (136-145)
[2023-08-07] MEDS: busPIRone 5 MG Tablet PO ×3 (05:30→20:20)
[2023-08-07] MEDS: Metoprolol Tartrate 50 MG Tablet 75 MG PO (05:30)
[2023-08-07] MEDS: Ipratropium 0.5 MG/2.5 ML SOLUTION INHALATION ×4 (07:03→19:02)
[2023-08-07] MEDS: predniSONE 20 MG Tablet 40 MG PO (09:00)
[2023-08-07] MEDS: 0.9% Saline Lock 10 ML Syringe IV (09:24)
[2023-08-07] MEDS: Menthol/Lanolin/Calamine/Znox 113 GM Tube 1 APPLIC TOPICAL ×2 (09:24→20:21)
[2023-08-07] MEDS: APIXABAN 5 MG TABLET PO ×2 (09:26→20:21)
[2023-08-07] MEDS: Ensure Plus High Protein 120 ML LIQUID PO ×4 (09:26→20:21)
[2023-08-07] MEDS: Polyethylene Glycol 3350 17 GM PACKET PO (09:26)
[2023-08-07] MEDS: Senna/Docusate Sodium 1 Tablet 2 TABLET PO ×2 (09:30→20:23)
[2023-08-07] MEDS: Pantoprazole Sodium 40 MG in 0.9% Normal Saline (100mL MB+) 100 ML 330 MG IV (09:30)
--- NOTE | 2023-08-07 10:25 | PCM.PN.HOSP ---
Subjective Subjective Doing well, no issues overnight. Oxygen requirements are slowly improving Objective Data Objective Data Vital Signs: Vital Signs Temp Pulse Resp BP Pulse Ox O2 Del Method O2 Flow Rate 97.9 F 91 16 122/57 H 98 Nasal Cannula 5 08/07/23 04:00 08/07/23 08:39 08/07/23 08:39 08/07/23 05:30 08/07/23 08:39 08/07/23 08:39 08/07/23 08:39 FiO2 28 08/07/23 00:48 Oxygen Flow Rate (L/min) 5 Oxygen Delivery Method Nasal Cannula Weight: 99 lb 3.328 oz Body Mass Index (BMI) 15.5 Intake & Output: Intake and Output for Last 24 Hours 08/06/23 08/07/23 08/08/23 03:59 03:59 03:59 Intake Total 950 / 950 590 / 590 610 / 610 Output Total 725 / 725 650 / 650 Balance 225 / 225 -60 / -60 610 / 610 Medical Nutrition Assessment Dietitian: Malnutrition Criteria Met Start: 08/03/23 10:40 Freq: Status: Active Protocol: Document 08/03/23 10:40 AG (Rec: 08/03/23 10:40 AG Desktop) Nutrition Malnutrition Evidence of Malnutrition Exists Yes Malnutrition (severe): Chronic Evidenced By Suboptimal Energy Intake ( Severe),Physical Changes ( Severe) Intake Problem Inadequate Oral Intake Etiology related to decreased appetite Signs/Symptoms as evidenced by estimated PO intake meeting <50% of estimated energy needs Status Active Problem Clinical Problem Chronic Disease or Condition Related Malnutrition Etiology severe, chronic malnutrition related to inadequate energy intake Signs/Symptoms as evidenced by estimated PO intake meeting <75% of estimated energy needs > 3 months, ; Severe muscle wasting/fat loss evident per physical exam in orbital, clavicle, acromion, and temporal areas; BMI 15.3 Status Active Problem Recommendation Dietitian Recommendations/Changes continue regular diet- texture /consistency modifications per LAND DEVELOPMENT MANAGER. Continue to offer Ensure Plus High Protein 120mL 4x/ day w/medpass; will add magic cups w/ dinner for additional nutrition if consumed. Lab / Micro Data 08/07/23 04:00 08/07/23 04:00 Labs: Laboratory Results - last 24 hr 08/07/23 04:00: WBC 12.3 H, RBC 3.59 L, Hgb 9.2 L, Hct 33.1 L, MCV 92.2 D, MCH 25.6 L, MCHC 27.8 L, RDW Std Deviation 56.1 H, RDW Coeff of Sami 16.9 H, Plt Count 258, MPV 10.4, Immature Gran % (Auto) 0.400, Neut % (Auto) 83.7 H, Lymph % (Auto) 10.1 L, [place] % (Auto) 5.4, Eos % (Auto) 0.3, Baso % (Auto) 0.1, Absolute Neuts (auto) 10.3 H, Absolute Lymphs (auto) 1.25, Nucleated RBC % 0, Sodium 141, Potassium 4.7, Chloride 100, Carbon Dioxide 39.0 H, Anion Gap 2 L, BUN 20 H, Creatinine 0.34 L, Estim Creat Clear Calc 119.01, Est GFR (MDRD) Af Amer 251, Est GFR (MDRD) Non-Af 208, BUN/Creatinine Ratio 59.3 H, Glucose 113 H, Calcium 8.3 L Micro: Microbiology 07/29/23 07:50 Blood Culture (Wb) - Pic Blood Culture - Final No growth in 5 days. 07/29/23 08:00 Blood Culture (Wb) - Right Forearm Blood Culture - Final No growth in 5 days. 07/29/23 07:45 Sputum, Induced/Lukens Gram Stain - Final 07/29/23 07:45 Sputum, Induced/Lukens Respiratory Culture - Final Presumptive C albicans 07/24/23 18:17 Blood Culture (Wb) - Anticubital Right Blood Culture - Final No growth in 5 days. 07/24/23 11:17 Blood Culture (Wb) #2 - Anticubital Left Blood Culture - Final No growth in 5 days. 07/24/23 10:35 Blood Culture (Wb) - No Site/Description Given Blood Culture - Final No growth in 5 days. 07/24/23 12:55 Sputum, Induced/Lukens Gram Stain - Final 07/24/23 12:55 Sputum, Induced/Lukens Respiratory Culture - Final Proteus mirabilis Staphylococcus aureus 07/24/23 13:05 Urine Catheter - Lundberg Urine Culture - Final Proteus mirabilis 07/24/23 13:05 Urine Catheter - Lundberg Legionella Antigen - Final 07/24/23 13:05 Urine Catheter - Lundberg Streptococcus pneumoniae Antigen (M - Final 07/24/23 15:55 Mucosa - Nasopharyngeal Respiratory Panel (PCR) - Final 07/24/23 10:55 Nasal Secretion SARS-CoV-2 & FLU Antigen (Rapid) - Final 07/24/23 10:55 Mucosa - Nasopharyngeal RSV RNA Qualitative (PCR) - Final 07/24/23 11:00 Stool Stool Occult Blood (CAROLYNE) - Final Physical Exam Narrative General: Alert, Oriented x3, Cooperative, No apparent distress HEENT: Atraumatic, PERRLA, EOMI, Normocephalic Oral: Moist Mucosa Neck: Supple, No JVD Lungs: Diminished, normal air movement, rhonchi, No wheeze, No rales Cardiovascular: Regular rate, Regular Rhythm, Normal S1, Normal S2, No murmurs Abdomen: Soft, Non Tender, Non-Distended, No Hepato-splenomegaly Extremities: No edema, Capillary Refill Less than 3 Seconds Skin: No rashes, No breakdown Musculoskeletal: No Tenderness to Palpation of Joints or Extremities Neurological: Cranial nerves II-XII grossly intact, Motor Exam 5/5 strength throughout, Sensory exam intact to light touch and pain Psych/Mental Status: Tearful from being here Assessment & Plan Assessment/Plan (1) Severe malnutrition: (2) Acute anemia: (3) Hypotension: (4) Staphylococcus aureus pneumonia: (5) Proteus pneumonia: (6) Stage 4 very severe COPD by GOLD classification: (7) Respiratory acidosis: (8) Fever: PLAN: Plan 1. Acute on chronic hypoxic and hypercapnic respiratory failure secondary to acute exacerbation of COPD/Staph aureus and Proteus pneumonia -Placed on BiPAP on presentation however pH did not improve after 2 hours on BiPAP and therefore we intubated her for persistent hypercapnia and somnolence -Intubated 07/23/2023 -Hopeful for extubation today -Patient remains on mechanical ventilation with an FiO2 of 35% -Thus far doing well and her breathing trial -At baseline patient uses 2.5 L with exertion only -Sputum cultures are positive for Proteus and Staph aureus (MSSA) -Solu-Medrol changed to prednisone. 07/31: Patient was extubated on 07/30/2023. Currently on oxygen through nasal cannula and BiPAP at night. 1 week of Levaquin will be completed on 08/01/2023. On DuoNeb. Diuresis as per tolerated. Continue aggressive bronchopulmonary hygiene 08/01: Patient on 8 L of oxygen, short of breath, dyspnea at rest. Sinus tachycardia with arrhythmia heart rate in 130s. Patient on metoprolol 50 mg 3 times daily. Advised to put on BiPAP/AVAPS. 08/02: Patient on 10 L of high flow oxygen. Labored and tachypneic breathing in respiratory distress. Advised to put on Airvo/BiPAP, NIPPV patient is tired of increased work of breathing. 08/03: 9 L of oxygen. Still tachypneic but looks better than yesterday. 08/04: On 6 L to 7 of oxygen. Patient still very short of breath with sinus tachycardia. Patient did not require Lundberg catheterization therefore discontinue. 08/05: No significant change. Patient still short of breath on 8 L of oxygen 08/06: Patient still on high flow oxygen. Recommends BiPAP at night or during nap to decrease work of breathing and improved ventilation and alveolar recruitment. 08/07/2023: Continue to encourage BiPAP, down to 5 L nasal cannula. Will obtain an ambulatory pulse ox. Antibiotics have been completed 2. Troponin elevation -Type II NSTEMI secondary to acute respiratory failure as noted above -Echocardiogram shows an EF of 40 to 45% and diffuse mitral valve thickening which is stable compared to previous -No acute ischemia noted on EKG 3. Acute on chronic anemia - hemoglobin is around 8.8/30.1.MCV normal. Reticulocyte count 223,000. No obvious sign for acute GI bleed. 08/01: Hemoglobin improving better. H&H 9.2/32%. 08/02: Hemoglobin 9.2. Platelet count 267. 4. 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 -Continue metoprolol to 50 mg p.o. 3 times daily -Continue home apixaban 08/01: Metoprolol dose increased to 75 mg 3 times daily. Currently in sinus rhythm. Patient is sinus tachycardia with arrhythmia most likely driven by acute hypoxic respiratory failure. 08/02: I think better control of the respiratory failure will improve heart rate. Patient needs NIPPV. 08/06: Patient fluctuates between A-fib and sinus rhythm. Currently sinus rhythm. 08/07/2023: Will transition to 100 mg of metoprolol p.o. twice daily 5. HFrEF-nonischemic cardiomyopathy -Last echocardiogram from 07/10/2022 shows an EF of 40% with mild global hypokinesis of the LV and mild to moderate mitral valve insufficiency -Echocardiogram stable with an EF of 40 to 45% with moderate mitral valve insufficiency -Hold home lisinopril -Continue metoprolol to 50 twice daily -Would recommend outpatient cardiology follow-up with outpatient noninvasive stress testing after stabilized clinically if echo shows no wall motion abnormality -Continue Lasix 20 mg IV twice daily -Patient is diuresing well and this will improve the likelihood of her getting extubated 08/07/2023: Off of Lasix, will monitor and give x 1 dose dosing if necessary 6. COPD Gold stage IV -Baseline FEV1 was 25% predicted -Wears 2.5 L of oxygen at baseline -Continue supplemental oxygen as noted -Hold inhalers -Pulmonary toilet as above -Follows with Dr. Enamorado as an outpatient -Still smoking -A questionable whether or not patient will be extubated due to the severity of her lung disease at baseline and this has been discussed previously with the patient with the result of her always wanting to be intubated as she was on admission 08/07/2023: Will reduce prednisone from 40 mg to 20 mg p.o. daily DVT: Eliquis Charges/Coding Visit Charges Inpatient E&M: 05051 Subs Hosp L2
--- NOTE | 2023-08-07 10:30 | CASEMGMT ---
SW met with patient and her significant other. SW explained that patient would only be able to be in TCU for 20 days. SW explained that if at the end of the 20 days she needs more therapy patient will have [facility]. Patient said she wants to stay at [facility]. Patient's significant other agreed and said patient would do best on TCU. Jaimee MIRANDA
[2023-08-07] MEDS: Ondansetron 4 MG/2 ML Vial IV (15:33)
[2023-08-07] MEDS: Metoprolol Tartrate 50 MG Tablet 100 MG PO (20:20)
[2023-08-08] VITALS (15 sets, daily range): BP systolic 116–136; BP diastolic 44–99; PULSE 78–118; RESP 16–32; TEMP 36.3–36.9; O2SAT 92–100; BMI 16.6
--- NOTE | 2023-08-08 02:53 | CPS ---
Pt refused PAP therapy for the night
[2023-08-08] MEDS: 0.9% Saline Lock 10 ML Syringe IV ×2 (03:24→11:00)
[2023-08-08 03:36] LABS: Absolute Lymphocyte Count 0.91 X10^3/uL (0.83-4.51); Absolute Neutrophil Count 11.7 X10^3/uL (2.0-7.7); Basophil# 0.03 X10^3/uL; Basophil% 0.2 % (0-1); Eosinophil# 0.03 X10^3/uL; Eosinophils% 0.2 % (0-5); Hematocrit 32.3 % (37-47); Hemoglobin 8.9 g/dL (12.0-15.0); Lymphocyte # 0.91 X10^3/ul (0.83-4.51); Lymphocyte % 6.7 % (19-41); Mean Corp Hgb Conc 27.6 g/dL (32-36); Mean Corpuscular Hgb 25.1 pg (27.0-32.0); Mean Corpuscular Volume 91.2 fL (81-99); Monocyte% 5.2 % (0-10); NRBC Flagged by Analyzer 0 % (0-5); Neutrophil # 11.71 X10^3/uL (2.7-7.7); Neutrophil % 86.7 % (47-70); Platelet Count 254 K/mm3 (150-450); RBC Distribution Width CV 17.2 % (11.6-14.6); RBC Distribution Width SD 57.4 fl (35.1-43.9); Red Blood Count 3.54 M/mm3 (4.2-5.4); White Blood Count 13.5 K/mm3 (4.4-11.0)
[2023-08-08 03:49] LABS: Anion Gap 2 (5-15); BUN 23 mg/dL (7-18); BUN/Creat Ratio 60.8 RATIO (10-20); Chloride 102 mmol/L (98-107); Creatinine, Serum 0.38 mg/dL (0.55-1.02); EST Glomerular Filtration Rate 182 mL/min (>60); Est Glom Filt Rate - Afr Amer 220 mL/min (>60); Estimated Creatinine Clearance 113.57 ml/min; Glucose 124 mg/dL (74-106); Potassium 4.5 mmol/L (3.5-5.1); Sodium Level 141 mmol/L (136-145)
[2023-08-08] MEDS: busPIRone 5 MG Tablet PO ×3 (05:06→21:36)
[2023-08-08] MEDS: Ipratropium 0.5 MG/2.5 ML SOLUTION INHALATION ×4 (05:20→20:20)
[2023-08-08] MEDS: predniSONE 20 MG Tablet PO (09:00)
--- NOTE | 2023-08-08 09:58 | PN.HOSP_ITS ---
Subjective Subjective No issues overnight, she is maintaining on 7 L nasal cannula I think part of this is due to the fact that she does not get up and ambulate or sit in a chair for very long Objective Data Objective Data Vital Signs: Vital Signs Temp Pulse Resp BP Pulse Ox O2 Del Method O2 Flow Rate 97.4 F L 78 21 H 116/67 97 Nasal Cannula 7 08/08/23 03:00 08/08/23 05:20 08/08/23 05:20 08/08/23 03:00 08/08/23 05:20 08/08/23 05:20 08/08/23 05:20 FiO2 28 08/07/23 00:48 Oxygen Flow Rate (L/min) 7 Oxygen Delivery Method Nasal Cannula Weight: 106 lb 0.677 oz Body Mass Index (BMI) 16.6 Intake & Output: Intake and Output for Last 24 Hours 08/07/23 08/08/23 08/09/23 03:59 03:59 03:59 Intake Total 590 / 590 1850 / 1850 Output Total 650 / 650 Balance -60 / -60 1850 / 1850 Medical Nutrition Assessment Dietitian: Malnutrition Criteria Met Start: 08/03/23 10:40 Freq: Status: Active Protocol: Document 08/07/23 11:06 RMA (Rec: 08/07/23 11:06 RMA [id number]) Nutrition Malnutrition Evidence of Malnutrition Exists Yes Malnutrition (severe): Chronic Evidenced By Suboptimal Energy Intake ( Severe),Physical Changes ( Severe) Intake Problem Inadequate Oral Intake Etiology related to decreased appetite Signs/Symptoms as evidenced by estimated PO intake meeting <50% of estimated energy needs Status Active Problem Clinical Problem Chronic Disease or Condition Related Malnutrition Etiology severe, chronic malnutrition related to inadequate energy intake Signs/Symptoms as evidenced by estimated PO intake meeting <75% of estimated energy needs > 3 months, ; Severe muscle wasting/fat loss evident per physical exam in orbital, clavicle, acromion, and temporal areas; BMI 15.3 Status Active Problem Recommendation Dietitian Recommendations/Changes Will continue liberalized regular diet- texture/ consistency modifications per SOLUTIONS DELIVERY CONSULTANT. Continue to Ensure Plus High Protein 120mL 4x/day w/medpass Will increase magic cups to BID w/ lunch and dinner for additional nutrition if consumed. Consider enteral nutrition support for energy/pro repletion. Lab / Micro Data 08/08/23 03:26 08/08/23 03:26 Labs: Laboratory Results - last 24 hr 08/08/23 03:26: WBC 13.5 H, RBC 3.54 L, Hgb 8.9 L, Hct 32.3 L, MCV 91.2, MCH 25.1 L, MCHC 27.6 L, RDW Std Deviation 57.4 H, RDW Coeff of Sami 17.2 H, Plt Count 254, MPV 11.0, Immature Gran % (Auto) 1.000 H, Neut % (Auto) 86.7 H, Lymph % (Auto) 6.7 L, [place]ette % (Auto) 5.2, Eos % (Auto) 0.2, Baso % (Auto) 0.2, Absolute Neuts (auto) 11.7 H, Absolute Lymphs (auto) 0.91, Nucleated RBC % 0, Sodium 141, Potassium 4.5, Chloride 102, Carbon Dioxide 37.0 H, Anion Gap 2 L, BUN 23 H, Creatinine 0.38 L, Estim Creat Clear Calc 113.57, Est GFR (MDRD) Af Amer 220, Es t GFR (MDRD) Non-Af 182, BUN/Creatinine Ratio 60.8 H, Glucose 124 H, Calcium 8.0 L Micro: Microbiology 08/07/23 20:30 Stool Stool Occult Blood (CAROLYNE) - Final Occult Blood Positive 07/29/23 07:50 Blood Culture (Wb) - Pic Blood Culture - Final No growth in 5 days. 07/29/23 08:00 Blood Culture (Wb) - Right Forearm Blood Culture - Final No growth in 5 days. 07/29/23 07:45 Sputum, Induced/Lukens Gram Stain - Final 07/29/23 07:45 Sputum, Induced/Lukens Respiratory Culture - Final Presumptive C albicans 07/24/23 18:17 Blood Culture (Wb) - Anticubital Right Blood Culture - Final No growth in 5 days. 07/24/23 11:17 Blood Culture (Wb) #2 - Anticubital Left Blood Culture - Final No growth in 5 days. 07/24/23 10:35 Blood Culture (Wb) - No Site/Description Given Blood Culture - Final No growth in 5 days. 07/24/23 12:55 Sputum, Induced/Lukens Gram Stain - Final 07/24/23 12:55 Sputum, Induced/Lukens Respiratory Culture - Final Proteus mirabilis Staphylococcus aureus 07/24/23 13:05 Urine Catheter - Lundberg Urine Culture - Final Proteus mirabilis 07/24/23 13:05 Urine Catheter - Lundberg Legionella Antigen - Final 07/24/23 13:05 Urine Catheter - Lundberg Streptococcus pneumoniae Antigen (M - Final 07/24/23 15:55 Mucosa - Nasopharyngeal Respiratory Panel (PCR) - Final 07/24/23 10:55 Nasal Secretion SARS-CoV-2 & FLU Antigen (Rapid) - Final 07/24/23 10:55 Mucosa - Nasopharyngeal RSV RNA Qualitative (PCR) - Final 07/24/23 11:00 Stool Stool Occult Blood (CAROLYNE) - Final Physical Exam Narrative General: Alert, Oriented x3, Cooperative, No apparent distress HEENT: Atraumatic, PERRLA, EOMI, Normocephalic Oral: Moist Mucosa Neck: Supple, No JVD Lungs: Diminished, normal air movement, rhonchi, No wheeze, No rales Cardiovascular: Regular rate, Regular Rhythm, Normal S1, Normal S2, No murmurs Abdomen: Soft, Non Tender, Non-Distended, No Hepato-splenomegaly Extremities: No edema, Capillary Refill Less than 3 Seconds Skin: No rashes, No breakdown Musculoskeletal: No Tenderness to Palpation of Joints or Extremities Neurological: Cranial nerves II-XII grossly intact, Motor Exam 5/5 strength throughout, Sensory exam intact to light touch and pain Psych/Mental Status: Tearful from being here Assessment & Plan Assessment/Plan (1) Severe malnutrition: (2) Acute anemia: (3) Hypotension: (4) Staphylococcus aureus pneumonia: (5) Proteus pneumonia: (6) Stage 4 very severe COPD by GOLD classification: (7) Respiratory acidosis: (8) Fever: PLAN: Plan 1. Acute on chronic hypoxic and hypercapnic respiratory failure secondary to acute exacerbation of COPD/Staph aureus and Proteus pneumonia -Placed on BiPAP on presentation however pH did not improve after 2 hours on BiPAP and therefore we intubated her for persistent hypercapnia and somnolence -Intubated 07/23/2023 -Hopeful for extubation today -Patient remains on mechanical ventilation with an FiO2 of 35% -Thus far doing well and her breathing trial -At baseline patient uses 2.5 L with exertion only -Sputum cultures are positive for Proteus and Staph aureus (MSSA) -[facility]. 07[facility]31: Patient was extubated on 07/30/2023. Currently on oxygen through nasal cannu la and BiPAP at night. 1 week of Levaquin will be completed on 08/01/2023. On DuoNeb. Diuresis as per tolerated. Continue aggressive bronchopulmonary hygiene 08/01: Patient on 8 L of oxygen, short of breath, dyspnea at rest. Sinus tachycardia with arrhythmia heart rate in 130s. Patient on metoprolol 50 mg 3 times daily. Advised to put on BiPAP/AVAPS. 08/02: Patient on 10 L of high flow oxygen. Labored and tachypneic breathing in respiratory distress. Advised to put on Airvo/BiPAP, NIPPV patient is tired of increased work of breathing. 08/03: 9 L of oxygen. Still tachypneic but looks better than yesterday. 08/04: On 6 L to 7 of oxygen. Patient still very short of breath with sinus tachycardia. Patient did not require Lundberg catheterization therefore discontinue. 08/05: No significant change. Patient still short of breath on 8 L of oxygen 08/06: Patient still on high flow oxygen. Recommends BiPAP at night or during nap to decrease work of breathing and improved ventilation and alveolar recruitment. 08/07/2023: Continue to encourage BiPAP, down to 5 L nasal cannula. Will obtain an ambulatory pulse ox. Antibiotics have been completed 08/08/2023: Will trial her on a dose of Lasix today to see if we can assist in her oxygenation 2. Troponin elevation -Type II NSTEMI secondary to acute respiratory failure as noted above -Echocardiogram shows an EF of 40 to 45% and diffuse mitral valve thickening which is stable compared to previous -No acute ischemia noted on EKG 3. Acute on chronic anemia - hemoglobin is around 8.8/30.1.MCV normal. Reticulocyte count 223,000. No obvious sign for acute GI bleed. 08/01: Hemoglobin improving better. H&H 9.2/32%. 08/02: Hemoglobin 9.2. Platelet count 267. 4. PAF/HTN -Patient has history of paroxysmal atrial fibrillation that especially worsens when she is in respiratory distress as anticipated rv repair technician shows patient is in A-fib. -Continue metoprolol to 50 mg p.o. 3 times daily -Continue home apixaban 08/01: Metoprolol dose increased to 75 mg 3 times daily. Currently in sinus rhythm. Patient is sinus tachycardia with arrhythmia most likely driven by acute hypoxic respiratory failure. 08/02: I think better control of the respiratory failure will improve heart rate. Patient needs NIPPV. 08/06: Patient fluctuates between A-fib and sinus rhythm. Currently sinus rhythm. 08/07/2023: Will transition to 100 mg of metoprolol p.o. twice daily 5. HFrEF-nonischemic cardiomyopathy -Last echocardiogram from 07/10/2022 shows an EF of 40% with mild global hypokinesis of the LV and mild to moderate mitral valve insufficiency -Echocardiogram stable with an EF of 40 to 45% with moderate mitral valve insufficiency -Hold home lisinopril -Continue metoprolol to 50 twice daily -Would recommend outpatient cardiology follow-up with outpatient noninvasive stress testing after stabilized clinically if echo shows no wall motion abnor mality -Continue Lasix 20 mg IV twice daily -Patient is diuresing well and this will improve the likelihood of her getting extubated 08/07/2023: Off of Lasix, will monitor and give x 1 dose dosing if necessary 08/08/2023: Will give a dose of Lasix today 6. COPD Gold stage IV -Baseline FEV1 was 25% predicted -Wears 2.5 L of oxygen at baseline -Continue supplemental oxygen as noted -Hold inhalers -Pulmonary toilet as above -Follows with Dr. Enamorado as an outpatient -Still smoking -A questionable whether or not patient will be extubated due to the severity of her lung disease at baseline and this has been discussed previously with the patient with the result of her always wanting to be intubated as she was on admission 08/07/2023: Will reduce prednisone from 40 mg to 20 mg p.o. daily DVT: Eliquis Capacity Legal Automobile Body Repair Chief Reflex Medical hold order details:: IF a medical hold is selected below, a suggested order for a MEDICAL HOLD will reflex upon signing the document. Next of kin: [place] law dictates a PRIORITY LIST for identifying legal decision-maker/legal next of kin in the following order (LNOK): 1st: The patient?s legal guardian, if any 2nd: The patient's spouse (if status is questionable, consult Risk Management) 3rd: The patient?s adult child(dave) (majority, if multiple children) 4th: The patient?s parents 5th: The patient?s adult siblings (majority, if multiple children siblings) Charges/Coding Visit Charges Inpatient E&M: 91264 Subs Hosp L2
[2023-08-08] MEDS: Menthol/Lanolin/Calamine/Znox 113 GM Tube 1 APPLIC TOPICAL ×2 (11:00→21:37)
[2023-08-08] MEDS: Metoprolol Tartrate 50 MG Tablet 100 MG PO ×2 (11:00→21:40)
[2023-08-08] MEDS: Ensure Plus High Protein 120 ML LIQUID PO (11:00)
[2023-08-08] MEDS: APIXABAN 5 MG TABLET PO ×2 (11:00→21:37)
[2023-08-08] MEDS: Pantoprazole Sodium 40 MG in 0.9% Normal Saline (100mL MB+) 100 ML 330 MG IV (11:00)
[2023-08-08] MEDS: Furosemide 40 MG/4 ML Vial IV (11:00)
[2023-08-08] MEDS: Acetaminophen 325 MG Tablet 650 MG PO (13:14)
[2023-08-08] MEDS: Ondansetron 4 MG/2 ML Vial IV (21:33)
[2023-08-09] VITALS (13 sets, daily range): BP systolic 93–119; BP diastolic 39–63; PULSE 56–103; RESP 16–22; TEMP 36.6–37; O2SAT 88–99; BMI 16.9
[2023-08-09 06:41] LABS: Absolute Lymphocyte Count 1.91 X10^3/uL (0.83-4.51); Basophil# 0.02 X10^3/uL; Basophil% 0.2 % (0-1); Eosinophil# 0.08 X10^3/uL; Eosinophils% 0.7 % (0-5); Hematocrit 33.7 % (37-47); Hemoglobin 9.4 g/dL (12.0-15.0); Lymphocyte # 1.91 X10^3/ul (0.83-4.51); Mean Corp Hgb Conc 27.9 g/dL (32-36); Mean Corpuscular Hgb 25.3 pg (27.0-32.0); Mean Corpuscular Volume 90.6 fL (81-99); Mean Platelet Vol. 11.1 fl (6.2-12.0); Monocyte# 0.85 X10^3/uL; Monocyte% 7.1 % (0-10); NRBC Flagged by Analyzer 0 % (0-5); Neutrophil # 8.98 X10^3/uL (2.7-7.7); Platelet Count 265 K/mm3 (150-450); RBC Distribution Width CV 18.3 % (11.6-14.6); RBC Distribution Width SD 59.4 fl (35.1-43.9); Red Blood Count 3.72 M/mm3 (4.2-5.4)
[2023-08-09] MEDS: Ipratropium 0.5 MG/2.5 ML SOLUTION INHALATION ×3 (07:08→19:40)
[2023-08-09 07:10] LABS: Anion Gap 0 (5-15); BUN 27 mg/dL (7-18); BUN/Creat Ratio 67.7 RATIO (10-20); Calcium,Total 8.5 mg/dL (8.5-10.1); Chloride 100 mmol/L (98-107); EST Glomerular Filtration Rate 171 mL/min (>60); Est Glom Filt Rate - Afr Amer 207 mL/min (>60); Estimated Creatinine Clearance 109.44 ml/min; Glucose 122 mg/dL (74-106); Potassium 4.4 mmol/L (3.5-5.1); Sodium Level 137 mmol/L (136-145)
[2023-08-09] MEDS: busPIRone 5 MG Tablet PO ×3 (07:23→23:08)
[2023-08-09] MEDS: Furosemide 40 MG/4 ML Vial IV (08:08)
[2023-08-09] MEDS: 0.9% Saline Lock 10 ML Syringe IV (08:08)
[2023-08-09] MEDS: predniSONE 20 MG Tablet PO (08:10)
[2023-08-09] MEDS: APIXABAN 5 MG TABLET PO ×2 (08:11→23:09)
[2023-08-09] MEDS: Metoprolol Tartrate 50 MG Tablet 100 MG PO ×2 (08:11→23:09)
[2023-08-09] MEDS: Ensure Plus High Protein 120 ML LIQUID PO ×4 (08:15→23:07)
[2023-08-09] MEDS: Pantoprazole Sodium 40 MG in 0.9% Normal Saline (100mL MB+) 100 ML 330 MG IV (09:43)
[2023-08-09] MEDS: Menthol/Lanolin/Calamine/Znox 113 GM Tube 1 APPLIC TOPICAL ×2 (09:45→23:08)
--- NOTE | 2023-08-09 10:54 | PCM.PN.HOSP ---
Subjective Subjective Doing well, no issues overnight. Her oxygen requirements are much improved with the addition of Lasix Objective Data Objective Data Vital Signs: Vital Signs Temp Pulse Resp BP Pulse Ox O2 Del Method O2 Flow Rate 98.6 F 90 16 110/44 L 88 Nasal Cannula 2 08/09/23 08:55 08/09/23 08:55 08/09/23 08:55 08/09/23 08:55 08/09/23 08:55 08/09/23 08:55 08/09/23 10:11 FiO2 28 08/07/23 00:48 Oxygen Flow Rate (L/min) 2 Oxygen Delivery Method Nasal Cannula Weight: 107 lb 9 oz Body Mass Index (BMI) 16.9 Intake & Output: Intake and Output for Last 24 Hours 08/08/23 08/09/23 08/10/23 03:59 03:59 03:59 Intake Total 1850 / 1850 1190 / 1190 230 / 230 Output Total 100 / 100 Balance 1850 / 1850 1190 / 1190 130 / 130 Medical Nutrition Assessment Dietitian: Malnutrition Criteria Met Start: 08/03/23 10:40 Freq: Status: Active Protocol: Document 08/07/23 11:06 RMA (Rec: 08/07/23 11:06 RMA [id number]) Nutrition Malnutrition Evidence of Malnutrition Exists Yes Malnutrition (severe): Chronic Evidenced By Suboptimal Energy Intake ( Severe),Physical Changes ( Severe) Intake Problem Inadequate Oral Intake Etiology related to decreased appetite Signs/Symptoms as evidenced by estimated PO intake meeting <50% of estimated energy needs Status Active Problem Clinical Problem Chronic Disease or Condition Related Malnutrition Etiology severe, chronic malnutrition related to inadequate energy intake Signs/Symptoms as evidenced by estimated PO intake meeting <75% of estimated energy needs > 3 months, ; Severe muscle wasting/fat loss evident per physical exam in orbital, clavicle, acromion, and temporal areas; BMI 15.3 Status Active Problem Recommendation Dietitian Recommendations/Changes Will continue liberalized regular diet- texture/ consistency modifications per BANQUET COORDINATOR. Continue to Ensure Plus High Protein 120mL 4x/day w/medpass Will increase magic cups to BID w/ lunch and dinner for additional nutrition if consumed. Consider enteral nutrition support for energy/pro repletion. Lab / Micro Data 08/09/23 06:30 08/09/23 06:30 Labs: Laboratory Results - last 24 hr 08/09/23 06:30: WBC 12.0 H, RBC 3.72 L, Hgb 9.4 L, Hct 33.7 L, MCV 90.6, MCH 25.3 L, MCHC 27.9 L, RDW Std Deviation 59.4 H, RDW Coeff of Sami 18.3 H, Plt Count 265, MPV 11.1, Immature Gran % (Auto) 1.000 H, Neut % (Auto) 75.0 H, Lymph % (Auto) 16.0 L, [place] % (Auto) 7.1, Eos % (Auto) 0.7, Baso % (Auto) 0.2, Absolute Neuts (auto) 9.0 H, Absolute Lymphs (auto) 1.91, Nucleated RBC % 0, Sodium 137, Potassium 4.4, Chloride 100, Carbon Dioxide 37.0 H, Anion Gap 0 L, BUN 27 H, Creatinine 0.40 L, Estim Creat Clear Calc 109.44, Est GFR (MDRD) Af Amer 207, Est GFR (MDRD) Non-Af 171, BUN/Creatinine Ratio 67.7 H, Glucose 122 H, Calcium 8.5 Micro: Microbiology 08/07/23 20:30 Stool Stool Occult Blood (CAROLYNE) - Final Occult Blood Positive 07/29/23 07:50 Blood Culture (Wb) - Pic Blood Culture - Final No growth in 5 days. 07/29/23 08:00 Blood Culture (Wb) - Right Forearm Blood Culture - Final No growth in 5 days. 07/29/23 07:45 Sputum, Induced/Lukens Gram Stain - Final 07/29/23 07:45 Sputum, Induced/Lukens Respiratory Culture - Final Presumptive C albicans 07/24/23 18:17 Blood Culture (Wb) - Anticubital Right Blood Culture - Final No growth in 5 days. 07/24/23 11:17 Blood Culture (Wb) #2 - Anticubital Left Blood Culture - Final No growth in 5 days. 07/24/23 10:35 Blood Culture (Wb) - No Site/Description Given Blood Culture - Final No growth in 5 days. 07/24/23 12:55 Sputum, Induced/Lukens Gram Stain - Final 07/24/23 12:55 Sputum, Induced/Lukens Respiratory Culture - Final Proteus mirabilis Staphylococcus aureus 07/24/23 13:05 Urine Catheter - Lundberg Urine Culture - Final Proteus mirabilis 07/24/23 13:05 Urine Catheter - Lundberg Legionella Antigen - Final 07/24/23 13:05 Urine Catheter - Lundberg Streptococcus pneumoniae Antigen (M - Final 07/24/23 15:55 Mucosa - Nasopharyngeal Respiratory Panel (PCR) - Final 07/24/23 10:55 Nasal Secretion SARS-CoV-2 & FLU Antigen (Rapid) - Final 07/24/23 10:55 Mucosa - Nasopharyngeal RSV RNA Qualitative (PCR) - Final 07/24/23 11:00 Stool Stool Occult Blood (CAROLYNE) - Final Physical Exam Narrative General: Alert, Oriented x3, Cooperative, No apparent distress HEENT: Atraumatic, PERRLA, EOMI, Normocephalic Oral: Moist Mucosa Neck: Supple, No JVD Lungs: Diminished, normal air movement, rhonchi, No wheeze, No rales Cardiovascular: Regular rate, Regular Rhythm, Normal S1, Normal S2, No murmurs Abdomen: Soft, Non Tender, Non-Distended, No Hepato-splenomegaly Extremities: Trace edema, Capillary Refill Less than 3 Seconds Skin: No rashes, No breakdown Musculoskeletal: No Tenderness to Palpation of Joints or Extremities Neurological: Cranial nerves II-XII grossly intact, Motor Exam 5/5 strength throughout, Sensory exam intact to light touch and pain Psych/Mental Status: Normal affect Assessment & Plan Assessment/Plan (1) Severe malnutrition: (2) Acute anemia: (3) Hypotension: (4) Staphylococcus aureus pneumonia: (5) Proteus pneumonia: (6) Stage 4 very severe COPD by GOLD classification: (7) Respiratory acidosis: (8) Fever: PLAN: Plan 1. Acute on chronic hypoxic and hypercapnic respiratory failure secondary to acute exacerbation of COPD/Staph aureus and Proteus pneumonia -Placed on BiPAP on presentation however pH did not improve after 2 hours on BiPAP and therefore we intubated her for persistent hypercapnia and somnolence -Intubated 07/23/2023 -Hopeful for extubation today -Patient remains on mechanical ventilation with an FiO2 of 35% -Thus far doing well and her breathing trial -At baseline patient uses 2.5 L with exertion only -Sputum cultures are positive for Proteus and Staph aureus (MSSA) -Solu-Medrol changed to prednisone. 07/31: Patient was extubated on 07/30/2023. Currently on oxygen through nasal cannula and BiPAP at night. 1 week of Levaquin will be completed on 08/01/2023. On DuoNeb. Diuresis as per tolerated. Continue aggressive bronchopulmonary hygiene 08/01: Patient on 8 L of oxygen, short of breath, dyspnea at rest. Sinus tachycardia with arrhythmia heart rate in 130s. Patient on metoprolol 50 mg 3 times daily. Advised to put on BiPAP/AVAPS. 08/02: Patient on 10 L of high flow oxygen. Labored and tachypneic breathing in respiratory distress. Advised to put on Airvo/BiPAP, NIPPV patient is tired of increased work of breathing. 08/03: 9 L of oxygen. Still tachypneic but looks better than yesterday. 08/04: On 6 L to 7 of oxygen. Patient still very short of breath with sinus tachycardia. Patient did not require Lundberg catheterization therefore discontinue. 08/05: No significant change. Patient still short of breath on 8 L of oxygen 08/06: Patient still on high flow oxygen. Recommends BiPAP at night or during nap to decrease work of breathing and improved ventilation and alveolar recruitment. 08/07/2023: Continue to encourage BiPAP, down to 5 L nasal cannula. Will obtain an ambulatory pulse ox. Antibiotics have been completed 08/08/2023: Will trial her on a dose of Lasix today to see if we can assist in her oxygenation 08/09/2023: Lasix seem to improve her oxygen requirements we will repeat a dose today and will anticipate discharge once pre-CERT is obtained 2. Troponin elevation -Type II NSTEMI secondary to acute respiratory failure as noted above -Echocardiogram shows an EF of 40 to 45% and diffuse mitral valve thickening which is stable compared to previous -No acute ischemia noted on EKG 3. Acute on chronic anemia - hemoglobin is around 8.8/30.1.MCV normal. Reticulocyte count 223,000. No obvious sign for acute GI bleed. 08/01: Hemoglobin improving better. H&H 9.2/32%. 08/02: Hemoglobin 9.2. Platelet count 267. 4. PAF/HTN -Patient has history of paroxysmal atrial fibrillation that especially worsens when she is in respiratory distress as anticipated pvc monitor shows patient is in A-fib. -Continue metoprolol to 50 mg p.o. 3 times daily -Continue home apixaban 08/01: Metoprolol dose increased to 75 mg 3 times daily. Currently in sinus rhythm. Patient is sinus tachycardia with arrhythmia most likely driven by acute hypoxic respiratory failure. 08/02: I think better control of the respiratory failure will improve heart rate. Patient needs NIPPV. 08/06: Patient fluctuates between A-fib and sinus rhythm. Currently sinus rhythm. 08/07/2023: Will transition to 100 mg of metoprolol p.o. twice daily 5. HFrEF-nonischemic cardiomyopathy -Last echocardiogram from 07/10/2022 shows an EF of 40% with mild global hypokinesis of the LV and mild to moderate mitral valve insufficiency -Echocardiogram stable with an EF of 40 to 45% with moderate mitral valve insufficiency -Hold home lisinopril -Continue metoprolol to 50 twice daily -Would recommend outpatient cardiology follow-up with outpatient noninvasive stress testing after stabilized clinically if echo shows no wall motion abnormality -Continue Lasix 20 mg IV twice daily -Patient is diuresing well and this will improve the likelihood of her getting extubated 08/07/2023: Off of Lasix, will monitor and give x 1 dose dosing if necessary 08/08/2023: Will give a dose of Lasix today 08/09/2023: May benefit from a low-dose p.o. Lasix on discharge 6. COPD Gold stage IV -Baseline FEV1 was 25% predicted -Wears 2.5 L of oxygen at baseline -Continue supplemental oxygen as noted -Hold inhalers -Pulmonary toilet as above -Follows with Dr. Enamorado as an outpatient -Still smoking -A questionable whether or not patient will be extubated due to the severity of her lung disease at baseline and this has been discussed previously with the patient with the result of her always wanting to be intubated as she was on admission 08/07/2023: Will reduce prednisone from 40 mg to 20 mg p.o. daily DVT: Eliquis Capacity Legal Pulmonary Function Technician Reflex Medical hold order details:: IF a medical hold is selected below, a suggested order for a MEDICAL HOLD will reflex upon signing the document. Next of kin: [place] law dictates a PRIORITY LIST for identifying legal decision-maker/legal next of kin in the following order (LNOK): 1st: The patient?s legal guardian, if any 2nd: The patient's spouse (if status is questionable, consult Risk Management) 3rd: The patient?s adult child(dave) (majority, if multiple children) 4th: The patient?s parents 5th: The patient?s adult siblings (majority, if multiple children siblings) Charges/Coding Visit Charges Inpatient E&M: 67097 Subs Hosp L2
[2023-08-09] MEDS: Acetaminophen 325 MG Tablet 650 MG PO ×2 (11:13→18:45)
--- NOTE | 2023-08-09 12:59 | WOUNDNOTE ---
wound photo: right buttock
--- NOTE | 2023-08-09 13:06 | CASEMGMT ---
Social Work SW met with pt and introduced self and role of SW. SW explained to pt that [facility] not able to accept and pt will need to choose another facility. Pt is stating she does not want to go to a retirement. t stating she will return home with outpatient therapy. SW explained to pt care needs are likley greater than can be provided at home and pt will need intensive therapy for recovery. Pt stating she will need to talk to her significant other Vin. With pt agreement, phone call to Vin and MATHEW explained that [facility] is not able to accept pt. Vin inquired about home with outpatient therapy. MATHEW reviewed therapy notes with Vin and that pt will need 24 hour care. Vin states he works and is unable to provide that. MATHEW reviewed list of SNF options with Vin. Vin choosing [facility] and states he will be in to speak with pt later today. TANK certified anesthesiologist assistant updated and referral to be sent to [facility]. Plan: [facility], pending acceptance and precALON Prakash
--- NOTE | 2023-08-09 13:41 | CASEMGMT ---
Addendum entered by Sheridan Cox 08/09/23 14:57: [facility] accepted patient and will submit for precert. Sheridan Cox, Discharge Planning Asst. Original Note: Discharge Planning Referral sent via [facility] to [facility]. Sheridan Cox, Discharge Planning Asst.
--- NOTE | 2023-08-09 17:02 | CASEMGMT ---
Social Work SW met with pt and significant other Vin and discussed discharge plan at length. After much discussion and options presented, pt is agreeable to go to [facility]. [facility] updated and precert started. Plan: [facility], pending precert ALON Corona
[2023-08-10] VITALS (7 sets, daily range): BP systolic 93–115; BP diastolic 45–60; PULSE 66–80; RESP 16–25; TEMP 36.6–36.7; O2SAT 98–100; BMI 17.7; BMI 16.9
[2023-08-10] MEDS: Ondansetron 4 MG/2 ML Vial IV (00:55)
[2023-08-10] MEDS: 0.9% Saline Lock 10 ML Syringe IV ×2 (00:55→10:55)
[2023-08-10] MEDS: busPIRone 5 MG Tablet PO ×2 (06:18→13:13)
[2023-08-10 07:20] LABS: Anion Gap 2 (5-15); BUN 27 mg/dL (7-18); Calcium,Total 8.3 mg/dL (8.5-10.1); Chloride 101 mmol/L (98-107); Creatinine, Serum 0.38 mg/dL (0.55-1.02); EST Glomerular Filtration Rate 184 mL/min (>60); Est Glom Filt Rate - Afr Amer 222 mL/min (>60); Estimated Creatinine Clearance 115.46 ml/min; Glucose 125 mg/dL (74-106); Sodium Level 139 mmol/L (136-145)
[2023-08-10] MEDS: Ipratropium 0.5 MG/2.5 ML SOLUTION INHALATION ×2 (07:27→11:35)
--- NOTE | 2023-08-10 08:46 | CASEMGMT ---
Discharge Planning [facility] has received auth. SW updated. Sheridan Cox, Discharge Planning Asst.
[2023-08-10] MEDS: predniSONE 20 MG Tablet PO (09:43)
[2023-08-10] MEDS: APIXABAN 5 MG TABLET PO (09:43)
[2023-08-10] MEDS: Pantoprazole Sodium 20 MG Tablet PO (09:43)
[2023-08-10] MEDS: Metoprolol Tartrate 50 MG Tablet 100 MG PO (09:44)
[2023-08-10] MEDS: Ensure Plus High Protein 120 ML LIQUID PO ×2 (09:44→13:13)
[2023-08-10] MEDS: Menthol/Lanolin/Calamine/Znox 113 GM Tube 1 APPLIC TOPICAL (09:45)
--- NOTE | 2023-08-10 09:47 | PCM.PN.HOSP ---
Subjective Subjective Currently feels depressed she is scared about going to a fdc for physical therapy she is willing to try an SSRI Objective Data Objective Data Vital Signs: Vital Signs Temp Pulse Resp BP Pulse Ox O2 Del Method O2 Flow Rate 97.9 F 78 18 115/45 L 100 High Flow 3 08/10/23 09:41 08/10/23 09:41 08/10/23 09:41 08/10/23 09:41 08/10/23 09:41 08/10/23 09:41 08/10/23 09:41 FiO2 28 08/07/23 00:48 Oxygen Flow Rate (L/min) 3 Oxygen Delivery Method High Flow Weight: 107 lb 12.897 oz Body Mass Index (BMI) 16.9 Intake & Output: Intake and Output for Last 24 Hours 08/09/23 08/10/23 08/11/23 03:59 03:59 03:59 Intake Total 1190 / 1190 580 / 580 Output Total 1200 / 1200 400 / 400 Balance 1190 / 1190 -620 / -620 -400 / -400 Medical Nutrition Assessment Dietitian: Malnutrition Criteria Met Start: 08/03/23 10:40 Freq: Status: Active Protocol: Document 08/07/23 11:06 RMA (Rec: 08/07/23 11:06 RMA [id number]) Nutrition Malnutrition Evidence of Malnutrition Exists Yes Malnutrition (severe): Chronic Evidenced By Suboptimal Energy Intake ( Severe),Physical Changes ( Severe) Intake Problem Inadequate Oral Intake Etiology related to decreased appetite Signs/Symptoms as evidenced by estimated PO intake meeting <50% of estimated energy needs Status Active Problem Clinical Problem Chronic Disease or Condition Related Malnutrition Etiology severe, chronic malnutrition related to inadequate energy intake Signs/Symptoms as evidenced by estimated PO intake meeting <75% of estimated energy needs > 3 months, ; Severe muscle wasting/fat loss evident per physical exam in orbital, clavicle, acromion, and temporal areas; BMI 15.3 Status Active Problem Recommendation Dietitian Recommendations/Changes Will continue liberalized regular diet- texture/ consistency modifications per SCIENTIFIC SPECIALIST. Continue to Ensure Plus High Protein 120mL 4x/day w/medpass Will increase magic cups to BID w/ lunch and dinner for additional nutrition if consumed. Consider enteral nutrition support for energy/pro repletion. Lab / Micro Data 08/09/23 06:30 08/10/23 06:47 Labs: Laboratory Results - last 24 hr 08/10/23 06:47: Sodium 139, Potassium 4.0, Chloride 101, Carbon Dioxide 36.0 H, Anion Gap 2 L, BUN 27 H, Creatinine 0.38 L, Estim Creat Clear Calc 115.46, Est GFR (MDRD) Af Amer 222, Est GFR (MDRD) Non-Af 184, BUN/Creatinine Ratio 72.0 H, Glucose 125 H, Calcium 8.3 L Micro: Microbiology 08/07/23 20:30 Stool Stool Occult Blood (CAROLYNE) - Final Occult Blood Positive 07/29/23 07:50 Blood Culture (Wb) - Pic Blood Culture - Final No growth in 5 days. 07/29/23 08:00 Blood Culture (Wb) - Right Forearm Blood Culture - Final No growth in 5 days. 07/29/23 07:45 Sputum, Induced/Lukens Gram Stain - Final 07/29/23 07:45 Sputum, Induced/Lukens Respiratory Culture - Final Presumptive C albicans 07/24/23 18:17 Blood Culture (Wb) - Anticubital Right Blood Culture - Final No growth in 5 days. 07/24/23 11:17 Blood Culture (Wb) #2 - Anticubital Left Blood Culture - Final No growth in 5 days. 07/24/23 10:35 Blood Culture (Wb) - No Site/Description Given Blood Culture - Final No growth in 5 days. 07/24/23 12:55 Sputum, Induced/Lukens Gram Stain - Final 07/24/23 12:55 Sputum, Induced/Lukens Respiratory Culture - Final Proteus mirabilis Staphylococcus aureus 07/24/23 13:05 Urine Catheter - Lundberg Urine Culture - Final Proteus mirabilis 07/24/23 13:05 Urine Catheter - Lundberg Legionella Antigen - Final 07/24/23 13:05 Urine Catheter - Lundberg Streptococcus pneumoniae Antigen (M - Final 07/24/23 15:55 Mucosa - Nasopharyngeal Respiratory Panel (PCR) - Final 07/24/23 10:55 Nasal Secretion SARS-CoV-2 & FLU Antigen (Rapid) - Final 07/24/23 10:55 Mucosa - Nasopharyngeal RSV RNA Qualitative (PCR) - Final 07/24/23 11:00 Stool Stool Occult Blood (CAROLYNE) - Final Physical Exam Narrative General: Alert, Oriented x3, Cooperative, No apparent distress HEENT: Atraumatic, PERRLA, EOMI, Normocephalic Oral: Moist Mucosa Neck: Supple, No JVD Lungs: Diminished, normal air movement, rhonchi, No wheeze, No rales Cardiovascular: Regular rate, Regular Rhythm, Normal S1, Normal S2, No murmurs Abdomen: Soft, Non Tender, Non-Distended, No Hepato-splenomegaly Extremities: Trace edema, Capillary Refill Less than 3 Seconds Skin: No rashes, No breakdown Musculoskeletal: No Tenderness to Palpation of Joints or Extremities Neurological: No focal neurologic deficit, Motor Exam 5/5 strength throughout, Sensory exam intact to light touch and pain Psych/Mental Status: Depressed Assessment & Plan Assessment/Plan (1) Severe malnutrition: (2) Acute anemia: (3) Hypotension: (4) Staphylococcus aureus pneumonia: (5) Proteus pneumonia: (6) Stage 4 very severe COPD by GOLD classification: (7) Respiratory acidosis: (8) Fever: PLAN: Plan 1. Acute on chronic hypoxic and hypercapnic respiratory failure secondary to acute exacerbation of COPD/Staph aureus and Proteus pneumonia -Placed on BiPAP on presentation however pH did not improve after 2 hours on BiPAP and therefore we intubated her for persistent hypercapnia and somnolence -Intubated 07/23/2023 -Hopeful for extubation today -Patient remains on mechanical ventilation with an FiO2 of 35% -Thus far doing well and her breathing trial -At baseline patient uses 2.5 L with exertion only -Sputum cultures are positive for Proteus and Staph aureus (MSSA) -Solu-Medrol changed to prednisone. 07/31: Patient was extubated on 07/30/2023. Currently on oxygen through nasal cannula and BiPAP at night. 1 week of Levaquin will be completed on 08/01/2023. On DuoNeb. Diuresis as per tolerated. Continue aggressive bronchopulmonary hygiene 08/01: Patient on 8 L of oxygen, short of breath, dyspnea at rest. Sinus tachycardia with arrhythmia heart rate in 130s. Patient on metoprolol 50 mg 3 times daily. Advised to put on BiPAP/AVAPS. 08/02: Patient on 10 L of high flow oxygen. Labored and tachypneic breathing in respiratory distress. Advised to put on Airvo/BiPAP, NIPPV patient is tired of increased work of breathing. 1/11: 9 L of oxygen. Still tachypneic but looks better than yesterday. 08/04: On 6 L to 7 of oxygen. Patient still very short of breath with sinus tachycardia. Patient did not require Lundberg catheterization therefore discontinue. 08/05: No significant change. Patient still short of breath on 8 L of oxygen 08/06: Patient still on high flow oxygen. Recommends BiPAP at night or during nap to decrease work of breathing and improved ventilation and alveolar recruitment. 08/07/2023: Continue to encourage BiPAP, down to 5 L nasal cannula. Will obtain an ambulatory pulse ox. Antibiotics have been completed 08/08/2023: Will trial her on a dose of Lasix today to see if we can assist in her oxygenation 08/09/2023: Lasix seem to improve her oxygen requirements we will repeat a dose today and will anticipate discharge once pre-CERT is obtained 08/10/2023: Continue with Lasix renal function is stable, pre-CERT pending, she is at her baseline oxygen requirements at 2 to 2-1/2 L 2. Troponin elevation -Type II NSTEMI secondary to acute respiratory failure as noted above -Echocardiogram shows an EF of 40 to 45% and diffuse mitral valve thickening which is stable compared to previous -No acute ischemia noted on EKG 3. Acute on chronic anemia - hemoglobin is around 8.8/30.1.MCV normal. Reticulocyte count 223,000. No obvious sign for acute GI bleed. 08/01: Hemoglobin improving better. H&H 9.2/32%. 08/02: Hemoglobin 9.2. Platelet count 267. 4. PAF/HTN -Patient has history of paroxysmal atrial fibrillation that especially worsens when she is in respiratory distress as anticipated clinical research monitor shows patient is in A-fib. -Continue metoprolol to 50 mg p.o. 3 times daily -Continue home apixaban 08/01: Metoprolol dose increased to 75 mg 3 times daily. Currently in sinus rhythm. Patient is sinus tachycardia with arrhythmia most likely driven by acute hypoxic respiratory failure. 08/02: I think better control of the respiratory failure will improve heart rate. Patient needs NIPPV. 08/06: Patient fluctuates between A-fib and sinus rhythm. Currently sinus rhythm. 08/07/2023: Will transition to 100 mg of metoprolol p.o. twice daily 5. HFrEF-nonischemic cardiomyopathy -Last echocardiogram from 07/10/2022 shows an EF of 40% with mild global hypokinesis of the LV and mild to moderate mitral valve insufficiency -Echocardiogram stable with an EF of 40 to 45% with moderate mitral valve insufficiency -Hold home lisinopril -Continue metoprolol to 50 twice daily -Would recommend outpatient cardiology follow-up with outpatient noninvasive stress testing after stabilized clinically if echo shows no wall motion abnormality -Continue Lasix 20 mg IV twice daily -Patient is diuresing well and this will improve the likelihood of her getting extubated 08/07/2023: Off of Lasix, will monitor and give x 1 dose dosing if necessary 08/08/2023: Will give a dose of Lasix today 08/09/2023: May benefit from a low-dose p.o. Lasix on discharge 6. COPD Gold stage IV -Baseline FEV1 was 25% predicted -Wears 2.5 L of oxygen at baseline -Continue supplemental oxygen as noted -Hold inhalers -Pulmonary toilet as above -Follows with Dr. Enamorado as an outpatient -Still smoking -A questionable whether or not patient will be extubated due to the severity of her lung disease at baseline and this has been discussed previously with the patient with the result of her always wanting to be intubated as she was on admission 08/07/2023: Will reduce prednisone from 40 mg to 20 mg p.o. daily 7. Depression ? This appears to be situational, with we will start her on Zoloft 50 mg daily DVT: Eliquis Capacity Legal Business Continuity Consultant Reflex Medical hold order details:: IF a medical hold is selected below, a suggested order for a MEDICAL HOLD will reflex upon signing the document. Next of kin: [place] law dictates a PRIORITY LIST for identifying legal decision-maker/legal next of kin in the following order (LNOK): 1st: The patient?s legal guardian, if any 2nd: The patient's spouse (if status is questionable, consult Risk Management) 3rd: The patient?s adult child(dave) (majority, if multiple children) 4th: The patient?s parents 5th: The patient?s adult siblings (majority, if multiple children siblings) Charges/Coding Visit Charges Inpatient E&M: 65483 Subs Hosp L2
[2023-08-10] MEDS: Furosemide 40 MG/4 ML Vial IV (10:55)
[2023-08-10] MEDS: Sertraline 50 MG Tablet PO (10:55)
--- NOTE | 2023-08-10 11:08 | CASEMGMT ---
Social Work Precert has been obtained for pt to admit to [facility]. Physician updated and pt to discharge today. 7000 exemption form completed in [facility] for admission. DC field administrative assistant updated and to complete discharge. Disposition: [facility], skilled level of care under convalescent stay [facility]ON [facility]
--- NOTE | 2023-08-10 11:09 | TREXTCAR_ITS ---
Diet Diet Order/Speech Therapy: 07/30/23 14:25 Diet: Regular - General Food consistency:: Easy to Chew Liquid Consistency:: Regular/Thin Type of Dietary Supplement:: Magic Cup Dessert Is pt able to select menu?: No Diet Comments: magic cup with lunch and dinner tray Routine Orders/Code Status Routine Lab Work: CBC and BMP Code Status: Full Code Wound(s) scattered skin tears: Wound Type: Skin Tear right wrist: Wound Type: Skin Tear right AC: Wound Type: Skin Tear Rt buttock: Wound Type: Pressure Injury Dressing Change: applied foam dressing mid back: Wound Type: Pressure Injury Therapies Physical Therapy: Eval and Treat Occupational Therapy: Eval and Treat Problem/Diagnosis (1) Severe malnutrition: Status: Acute Code(s): E43 - Unspecified severe protein-calorie malnutrition (2) Acute anemia: Status: Acute Code(s): D64.9 - Anemia, unspecified (3) Hypotension: Status: Acute Code(s): I95.9 - Hypotension, unspecified (4) Staphylococcus aureus pneumonia: Status: Acute Code(s): J15.211 - Pneumonia due to Methicillin susceptible Staphylococcus aureus (5) Proteus pneumonia: Status: Acute Code(s): J15.69 - Pneumonia due to other Gram-negative bacteria (6) Stage 4 very severe COPD by GOLD classification: Status: Acute Code(s): J44.9 - Chronic obstructive pulmonary disease, unspecified Comment: FEV1 25% (7) Respiratory acidosis: Status: Acute Code(s): E87.29 - Other acidosis (8) Fever: Status: Acute Code(s): R50.9 - Fever, unspecified Plan 1. Acute on chronic hypoxic and hypercapnic respiratory failure secondary to acute exacerbation of COPD/Staph aureus and Proteus pneumonia -Placed on BiPAP on presentation however pH did not improve after 2 hours on BiPAP and therefore we intubated her for persistent hypercapnia and somnolence -Intubated 07/23/2023 -Hopeful for extubation today -Patient remains on mechanical ventilation with an FiO2 of 35% -Thus far doing well and her breathing trial -At baseline patient uses 2.5 L with exertion only -Sputum cultures are positive for Proteus and Staph aureus (MSSA) -Solu-Medrol changed to prednisone. 07/31: Patient was extubated on 07/30/2023. Currently on oxygen through nasal cannula and BiPAP at night. 1 week of Levaquin will be completed on 08/01/2023. On DuoNeb. Diuresis as per tolerated. Continue aggressive bronchopulmonary hygiene 08/01: Patient on 8 L of oxygen, short of breath, dyspnea at rest. Sinus tachycardia with arrhythmia heart rate in 130s. Patient on metoprolol 50 mg 3 times daily. Advised to put on BiPAP/AVAPS. 08/02: Patient on 10 L of high flow oxygen. Labored and tachypneic breathing in respiratory distress. Advised to put on Airvo/BiPAP, NIPPV patient is tired of increased work of breathing. 08/03: 9 L of oxygen. Still tachypneic but looks better than yesterday. 08/04: On 6 L to 7 of oxygen. Patient still very short of breath with sinus tachycardia. Patient did not require Lundberg catheterization therefore discontinue. 08/05: No significant change. Patient still short of breath on 8 L of oxygen 08/06: Patient still on high flow oxygen. Recommends BiPAP at night or during nap to decrease work of breathing and improved ventilation and alveolar recruitment. 08/07/2023: Continue to encourage BiPAP, down to 5 L nasal cannula. Will obtain an ambulatory pulse ox. Antibiotics have been completed 08/08/2023: Will trial her on a dose of Lasix today to see if we can assist in her oxygenation 08/09/2023: Lasix seem to improve her oxygen requirements we will repeat a dose today and will anticipate discharge once pre-CERT is obtained 08/10/2023: Continue with Lasix renal function is stable, pre-CERT pending, she is at her baseline oxygen requirements at 2 to 2-1/2 L 2. Troponin elevation -Type II NSTEMI secondary to acute respiratory failure as noted above -Echocardiogram shows an EF of 40 to 45% and diffuse mitral valve thickening which is stable compared to previous -No acute ischemia noted on EKG 3. Acute on chronic anemia - hemoglobin is around 8.8/30.1.MCV normal. Reticulocyte count 223,000. No obvious sign for acute GI bleed. 08/01: Hemoglobin improving better. H&H 9.2/32%. 08/02: Hemoglobin 9.2. Platelet count 267. 4. PAF/HTN -Patient has history of paroxysmal atrial fibrillation that especially worsens when she is in respiratory distress as anticipated gambling monitor shows patient is in A-fib. -Continue metoprolol to 50 mg p.o. 3 times daily -Continue home apixaban 08/01: Metoprolol dose increased to 75 mg 3 times daily. Currently in sinus rhyth m. Patient is sinus tachycardia with arrhythmia most likely driven by acute hypoxic respiratory failure. 08/02: I think better control of the respiratory failure will improve heart rate. Patient needs NIPPV. 08/06: Patient fluctuates between A-fib and sinus rhythm. Currently sinus rhythm. 08/07/2023: Will transition to 100 mg of metoprolol p.o. twice daily 5. HFrEF-nonischemic cardiomyopathy -Last echocardiogram from 07/10/2022 shows an EF of 40% with mild global hypokinesis of the LV and mild to moderate mitral valve insufficiency -Echocardiogram stable with an EF of 40 to 45% with moderate mitral valve insufficiency -Hold home lisinopril -Continue metoprolol to 50 twice daily -Would recommend outpatient cardiology follow-up with outpatient noninvasive stress testing after stabilized clinically if echo shows no wall motion abnormality -Continue Lasix 20 mg IV twice daily -Patient is diuresing well and this will improve the likelihood of her getting extubated 08/07/2023: Off of Lasix, will monitor and give x 1 dose dosing if necessary 08/08/2023: Will give a dose of Lasix today 08/09/2023: May benefit from a low-dose p.o. Lasix on discharge 6. COPD Gold stage IV -Baseline FEV1 was 25% predicted -Wears 2.5 L of oxygen at baseline -Continue supplemental oxygen as noted -Hold inhalers -Pulmonary toilet as above -Follows with Dr. Enamorado as an outpatient -Still smoking -A questionable whether or not patient will be extubated due to the severity of her lung disease at baseline and this has been discussed previously with the patient with the result of her always wanting to be intubated as she was on admission 08/07/2023: Will reduce prednisone from 40 mg to 20 mg p.o. daily 7. Depression ? This appears to be situational, with we will start her on Zoloft 50 mg daily DVT: Eliquis Allergies/Procedures Done in Hospital Allergies atorvastatin [From Lipitor] Allergy (Unknown, Verified 03/21/23 11:43) Unknown codeine Allergy (Verified 03/21/23 11:43) Rash ibuprofen Allergy (Verified 03/21/23 11:43) Rash Procedures: Intubation Type of Care/Length of Stay Estimated LOS: Convalescent Care Less Than 30 days Type of Care Needed: Skilled Rehab Potential: Good Prognosis: Good Additional Orders/Day of Discharge Day of Discharge: 08/10/23 Dietary and Speech Recommendations Dietitian Recommendations/Changes: Will continue liberalized regular diet- texture/consistency modifications per DISPATCHER BUS AND TROLLEY. Continue to Ensure Plus High Protein 120mL 4x/day w/medpass Will increase magic cups to BID w/ lunch and dinner for additional nutrition if consumed. Consider enteral nutrition support for energy/pro repletion. Discharge Plan Admission Admit Date/Time: 07/24/23 12:56 Attending Provider: Juan Collins Primary Care Provider: Isabel Rae Consulting Providers: Paulette Garrison; Vinicio Varghese; Abhay Zaidi Discharge Orders/Prescriptions Prescriptions: New buspirone 5 mg Tablet 5 mg PO TID Qty: 0 0RF prednisone 20 mg Tablet 20 mg PO BREAKFAST Qty: 0 0RF Rx Instructions: take 20 mg for 3 more days then go to 10 mg daily for 5 days then 5 mg daily for 5 days metoprolol tartrate 50 mg Tablet 100 mg PO BID Qty: 0 0RF sertraline 50 mg Tablet 50 mg PO DAILY Qty: 0 0RF furosemide [Lasix] 20 mg tablet 20 mg PO DAILY Qty: 1 0RF Continued Eliquis 5 mg tablet 5 mg PO BID Qty: 60 3RF (DME) Disability Placard See Rx Instructions .ROUTE .MEDSUPPLY Qty: 1 0RF Rx Instructions: Expires in 5 years lisinopril 10 MG tablet 10 mg PO DAILY acetaminophen 500 MG tablet 1,000 mg PO DAILY PRN PRN (Reason: Pain Or Fever) pantoprazole 40 mg tablet,delayed release (DR/EC) 40 mg PO DAILY Patient Comments: TAKE 1 TABLET BY MOUTH EVERY DAY albuterol sulfate 2.5 mg /3 mL (0.083 %) solution for nebulization 2.5 mg inhalation Q6H Qty: 180 11RF Spiriva Respimat 1.25 mcg/actuation mist 2 puff INHALATION DAILY Qty: 4 2RF Symbicort 160-4.5 mcg/actuation HFA aerosol inhaler 2 puff INHALATION BID Qty: 10.2 2RF Rx Instructions: administer with spacer, rinse mouth after each use albuterol sulfate 90 mcg/actuation HFA aerosol inhaler 2 inh PO Q4H PRN (Reason: shortness of breath or wheezing) Qty: 8.5 6RF Referrals / Follow Up: Isabel Rae [Primary Care Provider] - Disposition Disposition (needs filled in before D/C Order can be placed): [facility]
--- NOTE | 2023-08-10 11:16 | PCM.DC.SUM ---
Providers Date of Admission: 07/24/23 Primary Care Physician: Dr. Isabel Rae Consultations 07/25/23 06:22 Consult: Fixer Supervisor / Pulmonary Medicine Routine Consulting Provider: Pulmonary Medicine emilie Astrid Reason for Consult: pressors, vent management EMERGENT Consult: No Notified: Yes Date Notified: 07/25/23 Time Notified: 06:23 Method of Notification: Verbal 07/26/23 08:49 Consult: Gastroenterology Routine Consulting Provider: Melanie Gastroenterology Reason for Consult: Suspect GIB on Eliquis for afib at baseline EMERGENT Consult: No Notified: Yes Date Notified: 07/26/23 Time Notified: 08:49 Method of Notification: Text 08/01/23 21:37 Consult: Onc/Wound/goodyear stitcher Routine Comment: Reason for Consult:: Rt buttock shearing wound Reason For Visit: ACUTE ON CHRONIC HYPOXIC/HYPERCAPNIC RESP FAILURE Diagnosis Discharge Diagnosis (1) Severe malnutrition: Status: Acute Code(s): E43 - Unspecified severe protein-calorie malnutrition (2) Acute anemia: Status: Acute Code(s): D64.9 - Anemia, unspecified (3) Hypotension: Status: Acute Code(s): I95.9 - Hypotension, unspecified (4) Staphylococcus aureus pneumonia: Status: Acute Code(s): J15.211 - Pneumonia due to Methicillin susceptible Staphylococcus aureus (5) Proteus pneumonia: Status: Acute Code(s): J15.69 - Pneumonia due to other Gram-negative bacteria (6) Stage 4 very severe COPD by GOLD classification: Status: Acute Code(s): J44.9 - Chronic obstructive pulmonary disease, unspecified (7) Respiratory acidosis: Status: Acute Code(s): E87.29 - Other acidosis (8) Fever: Status: Acute Code(s): R50.9 - Fever, unspecified Medications at Discharge Home Medications acetaminophen 500 mg tablet 1,000 mg PO DAILY PRN PRN Pain Or Fever 10/04/18 lisinopril 10 mg tablet 10 mg PO DAILY BP 10/04/18 albuterol sulfate 2.5 mg/3 mL (0.083 %) solution for nebulization 2.5 mg (3 mL) inhalation Q6H #180 mL 12/30/22 Disability Placard #1 ea 03/15/23 apixaban 5 mg tablet (Eliquis) 5 mg PO BID #60 tabs 03/15/23 tiotropium bromide 1.25 mcg/actuation mist for inhalation (Spiriva Respimat) 2 puff inhalation DAILY #4 grams 03/15/23 budesonide-formoterol HFA 160 mcg-4.5 mcg/actuation aerosol inhaler (Symbicort) 2 puff inhalation BID #10.2 grams 05/26/23 albuterol sulfate 90 mcg/actuation aerosol inhaler 2 inh PO Q4H PRN shortness of breath or wheezing #8.5 grams 06/24/23 pantoprazole 40 mg tablet,delayed release 40 mg PO DAILY GERD 07/24/23 buspirone 5 mg tablet 5 mg PO TID #0 tabs 08/10/23 furosemide 20 mg tablet (Lasix) 20 mg PO DAILY #1 TAB 08/10/23 metoprolol tartrate 50 mg tablet 100 mg (2 x 50 mg) PO BID #0 tabs 08/10/23 prednisone 20 mg tablet 20 mg PO BREAKFAST #0 tabs 08/10/23 sertraline 50 mg tablet 50 mg PO DAILY #0 tabs 08/10/23 Hospital Course Operations None Procedures 2-D Echocardiogram, EGD and Intubation Summary of Care Provided Minutes Spent on Discharge: 40 Hospital Course: Per HPI: KARYNA SALEH, is a 62 F who presented to the emergency department at [facility] on 07/24/2023 with shortness of breath and lethargy. Patient was brought in by personal car and had to be pulled from the car due to significant dyspnea. On presentation she was lethargic but able to answer a few questions appropriately. She presented with her significant other however he was gone by the time I was evaluating the patient and had arrived on the emergency department physician for any history. Evidently, her had reported she had been getting weaker for some time. She had not been getting out of bed much. She has known history of COPD that is quite severe and wears 2.5 L of oxygen at baseline per previous documentation from pulmonary medicine. Her FEV1 is 25% of predicted. Prior to him leaving, Dr. Welsh did discuss with the that she may need to be intubated and he stated that she was to be full code. Vital signs on presentation showed a temperature of 96.9, heart rate has been anywhere from 98-139, blood pressure is 122/85, respiratory rate was 31 and oxygen saturations were 95% on 4 L nasal cannula presentation. She eventually fatigued and was placed on BiPAP. A VBG was obtained that showed a pH of 7.24. 2 hours after AVAPS on noninvasive ventilation a repeat blood gas, this time ABG, was performed and she was found to have a pH of 7.25. Given the fact she had no significant improvement in her blood gas and was still fairly lethargic we decided to electively intubate her which was done in the emergency department prior to admission. CBC showed a white count of 13.4, hemoglobin of 10.7 which is stable and a left shift with an 89.9% neutrophilia. Her chemistry panel shows a chronically elevated serum bicarb and a BUN of 24 with a serum creatinine of 0.42. Blood glucose was 149. LFTs were unremarkable. Initial troponin was 48. BNP was 144.1. Chest x-ray was unremarkable for any acute findings and was stable when compared to previous chest x-ray. Of note patient came in with her oxygen on and she had nicotine staining of her oxygen tubing from the nasal prongs up into the tubing bilaterally for approximately 1 foot. Hospital Course: 1. Acute on chronic hypoxic and hypercapnic respiratory failure secondary to acute exacerbation of COPD/Staph aureus and Proteus pneumonia -Placed on BiPAP on presentation however pH did not improve after 2 hours on BiPAP and therefore we intubated her for persistent hypercapnia and somnolence -Intubated 07/23/2023 -Hopeful for extubation today -Patient remains on mechanical ventilation with an FiO2 of 35% -Thus far doing well and her breathing trial -At baseline patient uses 2.5 L with exertion only -Sputum cultures are positive for Proteus and Staph aureus (MSSA) -Solu-Medrol changed to prednisone. 07/31: Patient was extubated on 07/30/2023. Currently on oxygen through nasal cannula and BiPAP at night. 1 week of Levaquin will be completed on 08/01/2023. On DuoNeb. Diuresis as per tolerated. Continue aggressive bronchopulmonary hygiene 08/01: Patient on 8 L of oxygen, short of breath, dyspnea at rest. Sinus tachycardia with arrhythmia heart rate in 130s. Patient on metoprolol 50 mg 3 times daily. Advised to put on BiPAP/AVAPS. 08/02: Patient on 10 L of high flow oxygen. Labored and tachypneic breathing in respiratory distress. Advised to put on Airvo/BiPAP, NIPPV patient is tired of increased work of breathing. 08/03: 9 L of oxygen. Still tachypneic but looks better than yesterday. 08/04: On 6 L to 7 of oxygen. Patient still very short of breath with sinus tachycardia. Patient did not require Lundberg catheterization therefore discontinue. 08/05: No significant change. Patient still short of breath on 8 L of oxygen 08/06: Patient still on high flow oxygen. Recommends BiPAP at night or during nap to decrease work of breathing and improved ventilation and alveolar recruitment. 08/07/2023: Continue to encourage BiPAP, down to 5 L nasal cannula. Will obtain an ambulatory pulse ox. Antibiotics have been completed 08/08/2023: Will trial her on a dose of Lasix today to see if we can assist in her oxygenation 08/09/2023: Lasix seem to improve her oxygen requirements we will repeat a dose today and will anticipate discharge once pre-CERT is obtained 08/10/2023: Discussed with her the plan for discharge today she expressed understanding of the risk benefits of going to the jail and would like to go today. 2. Troponin elevation -Type II NSTEMI secondary to acute respiratory failure as noted above -Echocardiogram shows an EF of 40 to 45% and diffuse mitral valve thickening which is stable compared to previous -No acute ischemia noted on EKG 3. Acute on chronic anemia - hemoglobin is around 8.8/30.1.MCV normal. Reticulocyte count 223,000. No obvious sign for acute GI bleed. 08/01: Hemoglobin improving better. H&H 9.2/32%. 08/02: Hemoglobin 9.2. Platelet count 267. 08/10/2023: Hemoglobin stable at 9.4 today continue with outpatient monitoring 4. PAF/HTN -Patient has history of paroxysmal atrial fibrillation that especially worsens when she is in respiratory distress as anticipated groundwater monitoring technician shows patient is in A-fib. -Continue metoprolol to 50 mg p.o. 3 times daily -Continue home apixaban 08/01: Metoprolol dose increased to 75 mg 3 times daily. Currently in sinus rhythm. Patient is sinus tachycardia with arrhythmia most likely driven by acute hypoxic respiratory failure. 08/02: I think better control of the respiratory failure will improve heart rate. Patient needs NIPPV. 08/06: Patient fluctuates between A-fib and sinus rhythm. Currently sinus rhythm. 08/07/2023: Will transition to 100 mg of metoprolol p.o. twice daily and she will be discharged on this dose 5. HFrEF-nonischemic cardiomyopathy -Last echocardiogram from 07/10/2022 shows an EF of 40% with mild global hypokinesis of the LV and mild to moderate mitral valve insufficiency -Echocardiogram stable with an EF of 40 to 45% with moderate mitral valve insufficiency -Hold home lisinopril -Continue metoprolol to 50 twice daily -Would recommend outpatient cardiology follow-up with outpatient noninvasive stress testing after stabilized clinically if echo shows no wall motion abnormality -Continue Lasix 20 mg IV twice daily -Patient is diuresing well and this will improve the likelihood of her getting extubated 08/07/2023: Off of Lasix, will monitor and give x 1 dose dosing if necessary 08/08/2023: Will give a dose of Lasix today 08/09/2023: May benefit from a low-dose p.o. Lasix on discharge 08/10/2023: Will discharge today on 20 mg of Lasix p.o. daily with [facility] 6. COPD Gold stage IV -Baseline FEV1 was 25% predicted -Wears 2.5 L of oxygen at baseline -Continue supplemental oxygen as noted -Hold inhalers -Pulmonary toilet as above -Follows with Dr. Enamorado as an outpatient -Still smoking -A questionable whether or not patient will be extubated due to the severity of her lung disease at baseline and this has been discussed previously with the patient with the result of her always wanting to be intubated as she was on admission 08/07/2023: Will reduce prednisone from 40 mg to 20 mg p.o. daily 08/10/2023: Continue with 20 mg p.o. daily for another 4 days and then go down to 10 mg daily for 5 days and then 5 mg daily for 5 days 7. Depression ? This appears to be situational, with we will start her on Zoloft 50 mg daily and continue BuSpar 5 mg p.o. 3 times daily on discharge Medical Records Data Medical Nutrition Assessment Dietitian: Malnutrition Criteria Met Start: 08/03/23 10:40 Freq: Status: Active Protocol: Document 08/07/23 11:06 RMA (Rec: 08/07/23 11:06 RMA [id number]) Nutrition Malnutrition Evidence of Malnutrition Exists Yes Malnutrition (severe): Chronic Evidenced By Suboptimal Energy Intake ( Severe),Physical Changes ( Severe) Intake Problem Inadequate Oral Intake Etiology related to decreased appetite Signs/Symptoms as evidenced by estimated PO intake meeting <50% of estimated energy needs Status Active Problem Clinical Problem Chronic Disease or Condition Related Malnutrition Etiology severe, chronic malnutrition related to inadequate energy intake Signs/Symptoms as evidenced by estimated PO intake meeting <75% of estimated energy needs > 3 months, ; Severe muscle wasting/fat loss evident per physical exam in orbital, clavicle, acromion, and temporal areas; BMI 15.3 Status Active Problem Recommendation Dietitian Recommendations/Changes Will continue liberalized regular diet- texture/ consistency modifications per AUTO ELECTRICAL TECHNICIAN. Continue to Ensure Plus High Protein 120mL 4x/day w/medpass Will increase magic cups to BID w/ lunch and dinner for additional nutrition if consumed. Consider enteral nutrition support for energy/pro repletion. Weight / BMI Weight Weight: 107 lb 12.897 oz Body Mass Index (BMI) 16.9 ABG / Lab / Microbiology Data 08/09/23 06:30 08/10/23 06:47 Laboratory: Laboratory Results - last 24 hr 08/10/23 06:47: Sodium 139, Potassium 4.0, Chloride 101, Carbon Dioxide 36.0 H, Anion Gap 2 L, BUN 27 H, Creatinine 0.38 L, Estim Creat Clear Calc 115.46, Est GFR (MDRD) Af Amer 222, Est GFR (MDRD) Non-Af 184, BUN/Creatinine Ratio 72.0 H, Glucose 125 H, Calcium 8.3 L Microbiology: Microbiology 08/07/23 20:30 Stool Stool Occult Blood (CAROLYNE) - Final Occult Blood Positive 07/29/23 07:50 Blood Culture (Wb) - Pic Blood Culture - Final No growth in 5 days. 07/29/23 08:00 Blood Culture (Wb) - Right Forearm Blood Culture - Final No growth in 5 days. 07/29/23 07:45 Sputum, Induced/Lukens Gram Stain - Final 07/29/23 07:45 Sputum, Induced/Lukens Respiratory Culture - Final Presumptive C albicans 07/24/23 18:17 Blood Culture (Wb) - Anticubital Right Blood Culture - Final No growth in 5 days. 07/24/23 11:17 Blood Culture (Wb) #2 - Anticubital Left Blood Culture - Final No growth in 5 days. 07/24/23 10:35 Blood Culture (Wb) - No Site/Description Given Blood Culture - Final No growth in 5 days. 07/24/23 12:55 Sputum, Induced/Lukens Gram Stain - Final 07/24/23 12:55 Sputum, Induced/Lukens Respiratory Culture - Final Proteus mirabilis Staphylococcus aureus 07/24/23 13:05 Urine Catheter - Lundberg Urine Culture - Final Proteus mirabilis 07/24/23 13:05 Urine Catheter - Lundberg Legionella Antigen - Final 07/24/23 13:05 Urine Catheter - Lundberg Streptococcus pneumoniae Antigen (M - Final 07/24/23 15:55 Mucosa - Nasopharyngeal Respiratory Panel (PCR) - Final 07/24/23 10:55 Nasal Secretion SARS-CoV-2 & FLU Antigen (Rapid) - Final 07/24/23 10:55 Mucosa - Nasopharyngeal RSV RNA Qualitative (PCR) - Final 07/24/23 11:00 Stool Stool Occult Blood (CAROLYNE) - Final Meaningful Use Info Meaningful Use Diagnoses (Choose all that apply): None applicable Discharge Plan Admission Admit Date/Time: 07/24/23 12:56 Attending Provider: Juan Collins Primary Care Provider: Isabel Rae Consulting Providers: Paulette Garrison; Vinicio Varghese; Abhay Zaidi Discharge Orders/Prescriptions Prescriptions: New buspirone 5 mg Tablet 5 mg PO TID Qty: 0 0RF prednisone 20 mg Tablet 20 mg PO BREAKFAST Qty: 0 0RF Rx Instructions: take 20 mg for 3 more days then go to 10 mg daily for 5 days then 5 mg daily for 5 days metoprolol tartrate 50 mg Tablet 100 mg PO BID Qty: 0 0RF sertraline 50 mg Tablet 50 mg PO DAILY Qty: 0 0RF furosemide [Lasix] 20 mg tablet 20 mg PO DAILY Qty: 1 0RF Continued Eliquis 5 mg tablet 5 mg PO BID Qty: 60 3RF (DME) Disability Placard See Rx Instructions .ROUTE .MEDSUPPLY Qty: 1 0RF Rx Instructions: Expires in 5 years lisinopril 10 MG tablet 10 mg PO DAILY acetaminophen 500 MG tablet 1,000 mg PO DAILY PRN PRN (Reason: Pain Or Fever) pantoprazole 40 mg tablet,delayed release (DR/EC) 40 mg PO DAILY Patient Comments: TAKE 1 TABLET BY MOUTH EVERY DAY albuterol sulfate 2.5 mg /3 mL (0.083 %) solution for nebulization 2.5 mg inhalation Q6H Qty: 180 11RF Spiriva Respimat 1.25 mcg/actuation mist 2 puff INHALATION DAILY Qty: 4 2RF Symbicort 160-4.5 mcg/actuation HFA aerosol inhaler 2 puff INHALATION BID Qty: 10.2 2RF Rx Instructions: administer with spacer, rinse mouth after each use albuterol sulfate 90 mcg/actuation HFA aerosol inhaler 2 inh PO Q4H PRN (Reason: shortness of breath or wheezing) Qty: 8.5 6RF Referrals / Follow Up: Isabel Rae [Primary Care Provider] - Disposition Disposition (needs filled in before D/C Order can be placed): [facility] Charges/Coding Visit Charges Inpatient E&M: 26788 Disch Hosp >30min
--- NOTE | 2023-08-10 11:34 | PHA.DC.MR.R ---
Pharmacy [place] Med Reconciliation Pharmacy Service has performed discharge medication reconciliation for this patient. The patient's discharge medication list was reviewed for discrepancies and discrepancies were resolved. Medications at Discharge Home Medications acetaminophen 500 mg tablet 1,000 mg PO DAILY PRN PRN Pain Or Fever 10/04/18 lisinopril 10 mg tablet 10 mg PO DAILY BP 10/04/18 albuterol sulfate 2.5 mg/3 mL (0.083 %) solution for nebulization 2.5 mg (3 mL) inhalation Q6H #180 mL 12/30/22 Disability Placard #1 ea 03/15/23 apixaban 5 mg tablet (Eliquis) 5 mg PO BID #60 tabs 03/15/23 tiotropium bromide 1.25 mcg/actuation mist for inhalation (Spiriva Respimat) 2 puff inhalation DAILY #4 grams 03/15/23 budesonide-formoterol HFA 160 mcg-4.5 mcg/actuation aerosol inhaler (Symbicort) 2 puff inhalation BID #10.2 grams 05/26/23 albuterol sulfate 90 mcg/actuation aerosol inhaler 2 inh PO Q4H PRN shortness of breath or wheezing #8.5 grams 06/24/23 pantoprazole 40 mg tablet,delayed release 40 mg PO DAILY GERD 07/24/23 buspirone 5 mg tablet 5 mg PO TID #0 tabs 08/10/23 furosemide 20 mg tablet (Lasix) 20 mg PO DAILY #1 TAB 08/10/23 metoprolol tartrate 50 mg tablet 100 mg (2 x 50 mg) PO BID #0 tabs 08/10/23 prednisone 20 mg tablet 20 mg PO BREAKFAST #0 tabs 08/10/23 sertraline 50 mg tablet 50 mg PO DAILY #0 tabs 08/10/23
--- NOTE | 2023-08-10 13:00 | CASEMGMT ---
Discharge Planning Discharge orders, signed med list, and transport time sent to [facility] via [facility]. [facility] will transport patient by cot at 1:30p. Nursing, SW, patient, and her sig other updated. Sheridan Cox, Discharge Planning Asst.
--- NOTE | 2023-08-10 13:08 | NURSING ---
Report called to [place] at [facility]. Patient to be picked up at 1330 by [facility].
== END 2023-08-10 15:02 | disposition skilled nursing facility (03) | DRG 207 ==
LOC: ED 11:28 → ICU 13:08 → MS2 08-08 18:21
PROVIDERS: Internal Medicine; Internal Medicine Critical Care Medicine; Internal Medicine Gastroenterology; Admitting Provider Internal Medicine; Emergency Provider Emergency Medicine; Visit Provider Family Medicine
PROC: 0DJ08ZZ Inspection of Upper Intestinal Tract, Via Natural or Artificial Opening Endoscopic (ICD-10-PCS; CPT 43235; principal; 2023-07-27 12:10)
DX: J96.21 Acute and chronic respiratory failure with hypoxia (principal); E43 Unspecified severe protein-calorie malnutrition; J15.211 Pneumonia due to Methicillin susceptible Staphylococcus aureus; J15.69 Pneumonia due to other Gram-negative bacteria; I21.A1 Myocardial infarction type 2; R64 Cachexia; E87.29 Other acidosis; I42.8 Other cardiomyopathies; J44.1 Chronic obstructive pulmonary disease with (acute) exacerbation; I50.22 Chronic systolic (congestive) heart failure; Z99.11 Dependence on respirator [ventilator] status; J44.0 Chronic obstructive pulmonary disease with (acute) lower respiratory infection; Z68.1 Body mass index [BMI] 19.9 or less, adult; I47.10 Supraventricular tachycardia, unspecified; I11.0 Hypertensive heart disease with heart failure; J96.22 Acute and chronic respiratory failure with hypercapnia; I48.0 Paroxysmal atrial fibrillation; I34.0 Nonrheumatic mitral (valve) insufficiency; F32.A Depression, unspecified; D50.9 Iron deficiency anemia, unspecified; E86.1 Hypovolemia; E78.5 Hyperlipidemia, unspecified; F17.200 Nicotine dependence, unspecified, uncomplicated; K44.9 Diaphragmatic hernia without obstruction or gangrene; F41.9 Anxiety disorder, unspecified; E87.6 Hypokalemia; Z79.01 Long term (current) use of anticoagulants
CPT/HCPCS: 31500; 31720; 36415; 36569; 36600; 51702; 71045; 80048; 80053; 80076; 80202; 81001; 81025; 82274; 82330; 82550; 82728; 82803; 83540; 83550; 83605; 83735; 83880; 84100; 84145; 84439; 84443; 84478; 84484; 85025; 85045; 86850; 86900; 86901; 87040; 87070; 87077; 87086; 87088; 87186; 87205; 87428; 87449; 87633; 87634; 87641; 92610; 93005; 93306; 94002; 94003; 94640; 94660; 94667; 94762; 97110; 97162; 97163; 97166; 97530; 97535; 97802; 97803; 99252; 99285; J7030; J7040; J7050; P9047; A4216; G0463; J1940; J2405; J2916; J3475; J3490

== ENCOUNTER → 2023-08-11 | Outpatient (REF) | payer MEDICARE, MEDICAID, SELFPAY ==
[2023-08-11 09:25] LABS: Absolute Lymphocyte Count 1.62 X10^3/uL (0.83-4.51); Absolute Neutrophil Count 9.1 X10^3/uL (2.0-7.7); Basophil# 0.02 X10^3/uL; Basophil% 0.2 % (0-1); Eosinophil# 0.05 X10^3/uL; Eosinophils% 0.4 % (0-5); Hematocrit 33.6 % (37-47); Hemoglobin 9.1 g/dL (12.0-15.0); Lymphocyte # 1.62 X10^3/ul (0.83-4.51); Mean Corp Hgb Conc 27.1 g/dL (32-36); Mean Corpuscular Volume 92.3 fL (81-99); Mean Platelet Vol. 11.8 fl (6.2-12.0); Monocyte# 0.67 X10^3/uL; Monocyte% 5.8 % (0-10); NRBC Flagged by Analyzer 0 % (0-5); Neutrophil % 78.3 % (47-70); Platelet Count 274 K/mm3 (150-450); RBC Distribution Width CV 18.8 % (11.6-14.6); RBC Distribution Width SD 63.3 fl (35.1-43.9); Red Blood Count 3.64 M/mm3 (4.2-5.4); White Blood Count 11.6 K/mm3 (4.4-11.0)
--- OUTSIDE RECORDS SUMMARY | 2023-08-11 09:34 | XMS RPT_ITS | CCD ---
Author Name Unknown Address [address] [place] [address] Organization [facility] Care Team Providers Care Tree Shear Operator Name Role Phone RENATO CALHOUN (BRIAN-Chela) Referring Unavai lable Unavailable Primary Care Provider Unavailabl e Allergies Allergy Classification Reported Allergen(s) Allergy Type Date of Onset Reaction(s) Facility (1 source) Codeine; Translations: [CODEINE] Drug Allergy 10-04-[address] [facility] Repository (2 sources) Ibuprofen; Translations: [IBUPROFEN] Drug Allergy 10-04-[address] [facility] Repository (1 source) HYDROcodone Drug Allergy [...] 170.2 cm Jhonatan Nesheim DO Work Phone: [facility] 03-20-2022 22:43-0400 Body mass index (BMI) [Ratio] 20.36 kg/m2 Jhonatan Nesheim DO Work Phone: [facility] 03-20-2022 22:43-0400 Body temperature 98.29 [degF] Jhonatan Nesheim DO Work Phone: [facility] 03-20-2022 22:43-0400 Body weight 58.97 kg Jhonatan Nesheim DO Work Phone: [facility] 03-20-2022 22:43-0400 Diastolic blood pressure 89 mm[Hg] Jhonatan Nesheim DO Work Phone: [facility] 03-20-2022 22:43-0400 Heart rate 122 /min Jhonatan Nesheim DO Work Phone: [facility] 03-20-2022 22:43-0400 Respiratory rate 22 /min Jhonatan Nesheim DO Work Phone: [facility] 03-20-2022 22:43-0400 SaO2% (BldA) [Mass fraction] 97 % Jhonatan Nesheim DO Work Phone: [facility] 03-20-2022 22:43-0400 Systolic blood pressure 150 mm[Hg] Jhonatan Nesheim D O Work Phone: [facility] Encounters Encounter Date Encounter Type Care [...] 03-24-2022 Influenza vaccination Flu vaccine (# 1) [facility] Start: 1977 DTaP/Tdap/Td vaccine (1 - Tdap) DTaP/Tdap/Td vaccine (1 - Tdap) [facility] Start: 05-31-1961 COVID-19 Vaccine (#1) COVID-19 Vacci ne (#1) [facility] End: 03-20-2022 EKG 12 Lead - Chest Pain EKG 12 Lead - Chest Pain ECG STAT One Time for 1 Occurrences starting 03/20/2022 until 03/20/2022 [facility] Work Phone: Social History Date Type Detail Facility Tobacco smoking stat [facility] Tobacco smoking consumption unknown [facility] Start: 03-21-2022 History SDOH Alcohol Frequency 1 [facility] Work Phone: Start: 03-21-2022 History SDOH Alcohol Std Drinks 0 [facility] Work Phone: Start: 1960 Sex Assigned At Not on file S [facility] Work Phone: Start: 03-10-2022 End: 03-21-2022 Exposure to SARS-CoV-2 (event) Not sure [facility] Work Phone: Hospital Discharge instructions 03-21-2022 Discharge InstructionsAttachments Note Date & Type Note Facility 03-21-2022 Hospital Discharg e instructions Jhonatan Ornelas DO - 03/21/2022 1:32 AM EDT Please follow-up with your environmental field technician later today as we discussed. If you have any worsening shortness of breath, develop chest pain or other symptoms, please return the emergency department. I have prescribed an additional course of prednisone for you to take in the outpatient setting. The following attachments cannot be sent through Care Everywhere.COPD Exacerbation Plan (Bahamian)COPD: General Info (Bahamian)documented in this encounter [facility] Work Phone: Evaluation note Note Date & Type Note Facility documented in this encounter [facility] Work Phone: Summary Purpose Family History No Family History Records FoundNo Family History Records FoundNo Family History Records FoundNo Family History Records Found Advance Directives No Advanced Directives Records FoundNo Advanced Directives Records FoundNo Advanced Directives Records FoundNo Advanced Directives Records Found Additional Source Comments INFORMATION SOURCE (unrecogn ized section and content) DATE CREATED AUTHOR AUTHOR'S ORGANIZ ATION 12/25/2019 [facility] DATE CREATED AUTHOR AUTHOR'S ORGANIZ ATION 03/21/2022 [facility] DATE CREATED AUTHOR AUTHOR'S ORGANIZ ATION 03/23/2022 [facility] Ordered Prescriptions (unrec ognized section [...] BE BASED ON THE PRIMARY CLINICAL RECORDS. [facility]. provides no warranty or guarantee of the accuracy or completeness of information in this document.
[2023-08-11 09:40] LABS: Vitamin B12 638 pg/mL (211-911); Vitamin D,25 Hydroxy 35.4 ng/mL
[2023-08-11 09:43] LABS: Anion Gap 1 (5-15); BUN 20 mg/dL (7-18); BUN/Creat Ratio 64.7 RATIO (10-20); Calcium,Total 8.8 mg/dL (8.5-10.1); Chloride 98 mmol/L (98-107); Creatinine, Serum 0.31 mg/dL (0.55-1.02); EST Glomerular Filtration Rate 230 mL/min (>60); Est Glom Filt Rate - Afr Amer 278 mL/min (>60); Glucose 121 mg/dL (74-106); Sodium Level 139 mmol/L (136-145); Thyroid Stim Hormone (TSH) 0.88 uIU/mL (0.358-3.74)
== END ==
LOC: OLS.SW 08:00
PROVIDERS: Visit Provider Internal Medicine
DX: J44.9 Chronic obstructive pulmonary disease, unspecified (principal); E43 Unspecified severe protein-calorie malnutrition; J15.211 Pneumonia due to Methicillin susceptible Staphylococcus aureus
CPT/HCPCS: 36415; 80048; 82306; 82607; 84443; 85025

== ENCOUNTER → 2024-05-07 | Outpatient (CLI) | payer MEDICARE, MEDICAID, SELFPAY ==
[2024-05-07 12:52] LABS: Color, Urine Amber (Yellow); Glucose, Dipstick Normal (Normal); Ketone-Dipstick Negative (Negative); Leukocyte Esterase-Dipstick 500 /ul (Negative); Nitrite-Dipstick Positive (Negative); Occult Blood-Urine 250 /ul (Negative); Protein-Dipstick 100 mg/dl (Negative); Specific Gravity, Urine 1.015 (1.002-1.030); Urine Bilirubin Dipstick Negative (Negative); Urine Clarity Cloudy (Clear); Urine Urobilinogen Normal (Normal)
== END | disposition home or self-care (01) ==
LOC: VSLAB 12:04
PROVIDERS: PCP Nurse Practitioner Family; Visit Provider Nurse Practitioner Family
DX: N39.0 Urinary tract infection, site not specified (principal)
CPT/HCPCS: 81002; 87086; 87088

== ENCOUNTER 2024-06-17 11:42 | Emergency (ER) | payer MEDICARE, MEDICAID, SELFPAY ==
[2024-06-17 11:44] VITALS: TEMP 36.6; O2SAT 96; BMI 24.7
[2024-06-17 11:49] VITALS: BP 100/46; PULSE 78; RESP 16; O2SAT 96
--- NOTE | 2024-06-17 11:49 | EKG12_ITS ---
Test Reason : SYNCOPE Blood Pressure : */* mmHG Vent. Rate : 76 BPM Atrial Rate : 76 BPM P-R Int : 178 ms QRS Dur : 86 ms QT Int : 380 ms P-R-T Axes : 86 61 82 degrees QTcB Int : 427 ms Sinus rhythm with Premature atrial complexes Cannot rule out Septal infarct , age undetermined Abnormal ECG Baseline artifact Confirmed by Julien Broderick ([id number]), manuscript editor ZUNILDA BLANCAS ([id number]) on 06/18/2024 10:39:05 AM Referred By: Confirmed By: Julien Broderick
--- NOTE | 2024-06-17 11:53 | EX.ED.DYSGE1 ---
HPI History of Present Illness Chief Complaint: Syncope [facility] Medical History Acute on chronic respiratory failure with hypoxia and hypercapnia Afib Smoker On home oxygen therapy Protein calorie malnutrition Hyperglycemia Elevated troponin I level Leukocytosis History of non-ST elevation myocardial infarction (NSTEMI) (06/21/19) Hyperlipidemia Non-ischemic cardiomyopathy Essential (primary) hypertension Chronic respiratory failure with hypoxia DONNA (obstructive sleep apnea) Stage 4 very severe COPD by GOLD classification Home Medications ?Medication ?Instructions ?Recorded ?Last Taken ?Type acetaminophen 500 mg tablet 1,000 mg PO DAILY PRN PRN Pain Or 10/04/18 06/13/19 History Fever lisinopril 10 mg tablet 10 mg PO DAILY BP 10/04/18 06/14/19 History Disability Placard #1 ea 03/15/23 Unknown Rx apixaban 5 mg tablet (Eliquis) 5 mg PO BID #60 tabs 03/15/23 Unknown Rx pantoprazole 40 mg tablet,delayed 40 mg PO DAILY GERD 07/24/23 Unknown History release buspirone 5 mg tablet 5 mg PO TID #0 tabs 08/10/23 Unknown Rx metoprolol tartrate 50 mg tablet 100 mg (2 x 50 mg) PO BID #0 tabs 08/10/23 Unknown Rx sertraline 50 mg tablet 50 mg PO DAILY #0 tabs 08/10/23 Unknown Rx diltiazem HCl 180 mg 180 mg PO QDAY 12/04/23 Unknown History capsule,extended release 24 hr, controlled loratadine 10 mg tablet 10 mg PO QDAY 12/04/23 Unknown History trazodone 50 mg tablet 50 mg PO QHS 12/04/23 Unknown History albuterol sulfate 2.5 mg/3 mL 2.5 mg (3 mL) inhalation Q6H #180 06/17/24 Unknown Rx (0.083 %) solution for nebulization mL albuterol sulfate 90 mcg/actuation 2 inh PO Q4H PRN shortness of 06/17/24 Unknown Rx aerosol inhaler breath or wheezing #8.5 grams budesonide-formoterol HFA 160 2 puff inhalation BID #10.2 grams 06/17/24 Unknown Rx mcg-4.5 mcg/actuation aerosol inhaler (Symbicort) tiotropium bromide 1.25 2 puff inhalation DAILY #4 grams 06/17/24 Unknown Rx mcg/actuation mist for inhalation (Spiriva Respimat) Allergy/AdvReac Type Severity Reaction Status Date / Time atorvastatin (From Lipitor) Allergy Unknown Unknown Verified 06/17/24 11:43 codeine Allergy Rash Verified 06/17/24 11:43 ibuprofen Allergy Rash Verified 06/17/24 11:43 Family History Father Lung cancer Mother Breast cancer Parkinsons disease Surgical History H/O tubal ligation Social History household members: significant other housing: house Smoking Status: Former smoker quit date: 07/24/23 alcohol intake: never substance use type: does not use EXAM Physical Exam Const Vital Signs: 06/17/24 11:44 06/17/24 11:47 06/17/24 11:49 Temperature 97.9 F Temperature Source Oral Pulse Rate 78 Respiratory Rate 16 Respiratory Effort Normal Non-Labored Respiratory Pattern Normal Blood Pressure 100/46 L Blood Pressure Mean 64 Pulse Ox 96 96 Oxygen Delivery Method Nasal Cannula Nasal Cannula Oxygen Flow Rate (L/min) 2 2 06/17/24 14:06 06/17/24 15:00 Temperature 98.2 F Temperature Source Pulse Rate 84 99 Respiratory Rate 17 17 Respiratory Effort Respiratory Pattern Blood Pressure 137/62 H 101/77 Blood Pressure Mean 87 85 Pulse Ox 97 94 Oxygen Delivery Method Nasal Cannula Oxygen Flow Rate (L/min) MDM MDM MDM Narrative Medical decision making narrative: HISTORY OF PRESENT ILLNESS: 63-year-old female presents with syncope. Notes single episode in wheelchair at pulm appointment today. Per report staff to not feel a pulse however after sternal rub the patient woke up. Patient notes I do not think I passed out. No she fell little lightheaded which has resolved. Denies vomiting or diarrhea. Denies any bleeding diathesis. Notes compliance with Eliquis. Denies any chest pain or palpitations. Denies any cough fever chills. Denies any new leg swelling. REVIEW OF SYSTEMS: Pertinent positives: Syncope Pertinent negatives: Chest pain, shortness of breath, cough PHYSICAL EXAM: Nursing triage notes reviewed, Vital signs reviewed Constitutional: please see mdm HENT: MMM Eyes: Pupils equal round and reactive to light, Extraocular muscles intact Neck: No stridor, no JVD, full neck ROM Lungs: Clear to auscultation, No wheezing or rales. No increased work of breathing, no conversational dyspnea, no accessory muscle use, no nasal flaring. No respiratory distress noted Heart: Regular rate and rhythm, No murmurs, No rubs and No gallops, 2+ distal pulses (radial, femoral, posterior tibial) in all extremities Abdomen: Soft, there is no tenderness, rigidity, rebound or guarding, no obvious peritoneal signs, no palpable pulsatile abdominal masses, no auscultated abdominal bruit : No CVAT Extremities: No edema Neuro: No focal neurological deficits, cranial nerves II through XII intact, 5/5 strength in all extremities. Intact sensation to light touch in all extremities, 2+ reflexes bilateral patella tendons. Normal gait. No ataxia. Skin: No rash or lesions noted MEDICAL DECISION MAKING: Chief Complaint: Syncope External records reviewed: Reviewed prior cardiovascular studies: Reviewed echocardiogram from July 2023 showed ejection fraction of 40-45% Factors affecting care: Nonischemic dermopathy, hyperlipidemia, COPD on 2 L nasal cannula, Social determinants of health: none History obtained from others: none Consults: none [facility] Narrative: Patient was initially hypotensive (although her baseline blood pressure on the last 3 studies have been in the low 100s), otherwise afebrile and nontoxic-appearing. Exam I considered the following differential diagnosis: Arrhythmia, anemia, PE electrolyte disturbance, CHF exacerbation, CO2 narcosis, PE I obtained a broad lab and imaging workup to further elucidate etiology of patient's complaint. ALL IMAGES (IF OBTAINED) HAVE BEEN PERSONALLY REVIEWED AND INTERPRETED BY MYSELF. EKG with normal sinus rhythm, normal axis, no intervals, no STEMI CBC with leukocytosis suggestive of systemic inflammation, mild anemia noted, no thrombocytopenia BMP without evidence of significant electrolyte abnormalities, no anion gap, no acute kidney injury. High-sensitivity troponin is negative, no evidence of myocardial ischemia BNP within the limit suggestive of no significant ventricular stretch or transmural pressurex2 CT of the chest is negative for PE but shows evidence of possible lung mass. VBG without evidence of CO2 retention or respiratory acidosis Synthesis of his history, physical exam, abdomen suggest no acute life-limiting etiology. I did offer the patient Observation given her advanced age, history of cardiomyopathy, COPD and complaint of syncope however patient was alert and orient x 3 in the presence of her son refused admission at this time. She promised to follow-up with a fast pass referral. Strict return precautions were discussed. Incidental finding of lung mass was communicated with the patient. Fast pass prompt ecology follow-up was arranged. The patient and/or family, caregivers express understanding. The patient and/or family, caregivers agrees with the plan. Shared decision making: I will have a discussion with the patient and or visitors regarding risk/benefits of further testing or admission. They will be made aware of of the risk/benefits inherent in this decision they will be given the opportunity to voice understanding. Total critical care time today provided was at least 0 minutes. This excludes separately billable procedures. Critical care time (if documented) is secondary to the patient having high probability of clinically significant/life threatening deterioration in the patient's condition which required my urgent intervention. Impression: 1. Syncope 2. History cardiomyopathy 3. Lung mass Dispo: Discharge home This note was generated with Boni dictation software. It may contain incorrect words, spelling, and punctuation that were not noted in review of the chart prior to signing. Lab Data Labs: Laboratory Results - last 24 hr 06/17/24 06/17/24 12:00 14:35 WBC 12.4 H RBC 3.74 L Hgb 9.2 L Hct 31.1 L MCV 83.2 MCH 24.6 L MCHC 29.6 L RDW Std Deviation 43.5 RDW Coeff of Sami 14.5 Plt Count 262 MPV 11.4 Sodium 136 Potassium 3.6 Chloride 104 Carbon Dioxide 24.0 Anion Gap 8 BUN 15 Creatinine 0.63 Estim Creat Clear Calc 68.18 Est GFR (MDRD) Af Amer 122 Est GFR (MDRD) Non-Af 100 BUN/Creatinine Ratio 23.8 H Glucose 244 H Calcium 9.0 Troponin I High Sens 17 18 B-Natriuretic Peptide 23.2 ABG Data ABG results: ABG 06/17/24 14:30 Specimen Type MILE Sample Site Not entered VBG pH 7.37 VBG pO2 56 H VBG HCO3 24 VBG Total CO2 25 VBG O2 Sat (Calc) 88 H VBG Base Excess -2 L POC Mix VBG pCO2 Pt Tmp 41.1 O2 Delivery Device Not entered Radiography Diagnostic Testing: Clinical Impression(s) from Imaging Studies Chest CTA 06/17/24 12:29 IMPRESSION: 1. No CTA evidence of pulmonary thromboemboli, thoracic aortic aneurysm or dissection. 2. 4.7 x 2.3 cm pleural-based mass in the lateral aspect of the right upper lobe extending into the right fourth and fifth lateral intercostal space. This is malignant neoplasm until proven otherwise. This is feasible for CT-guided core biopsy. 3. 7 mm perifissural nodule in the superior segment of the right lower lobe. Lung-RADS score: 2S - Benign Appearance or Behavior. Additional clinically significant or potentially clinically significant findings are described. Recommend continued annual screening with a low-dose CT (LDCT) in 12 months. 4. Centrilobular cystic emphysema predominant and fewer paraseptal cystic emphysema type of COPD. 5. Greater than 50% stenosis of the right proximal renal artery and at least 50% stenosis of the left proximal renal artery. 6. Intramural thrombus in the included portion of the ectatic upper abdominal aorta. I am uncertain if there is infrarenal abdominal aortic aneurysm since only a small portion of the ectatic upper abdominal aorta is included. 7. Prominent cast of nonobstructing stone in the right renal hilum extending into the right upper renal infundibula and right lower renal infundibulum. No right hydronephrosis. No stones or hydronephrosis in the left kidney. 8. 1.3 cm low-attenuation lesion in the left posterior renal cortex with CT number of 11.41 Hounsfield units is simple cyst. ACR White Paper guidelines (Herts, et al. JACR 2018; 15(2):264-273) suggest no follow-up is necessary. Electronically Signed: Jelani Deleon MD at 13:52 EST , ADDENDUM: 06/17/24 1400 IMPRESSION: 1. No CTA evidence of pulmonary thromboemboli, thoracic aortic aneurysm or dissection. 2. 4.7 x 2.3 cm pleural-based mass in the lateral aspect of the right upper lobe extending into the right fourth and fifth lateral intercostal space. This is malignant neoplasm until proven otherwise. This is feasible for CT-guided core biopsy. 3. 7 mm perifissural nodule in the superior segment of the right lower lobe. Lung-RADS score: 2S - Benign Appearance or Behavior. Additional clinically significant or potentially clinically significant findings are described. Recommend continued annual screening with a low-dose CT (LDCT) in 12 months. 4. Centrilobular cystic emphysema predominant and fewer paraseptal cystic emphysema type of COPD. 5. Greater than 50% stenosis of the right proximal renal artery and at least 50% stenosis of the left proximal renal artery. 6. Intramural thrombus in the included portion of the ectatic upper abdominal aorta. I am uncertain if there is infrarenal abdominal aortic aneurysm since only a small portion of the ectatic upper abdominal aorta is included. 7. Prominent cast of nonobstructing stone in the right renal hilum extending into the right upper renal infundibula and right lower renal infundibulum. No right hydronephrosis. No stones or hydronephrosis in the left kidney. 8. 1.3 cm low-attenuation lesion in the left posterior renal cortex with CT number of 11.41 Hounsfield units is simple cyst. ACR White Paper guidelines (Herhunter, et al. JACR 2018; 15(2):264-273) suggest no follow-up is necessary. N.B. : The above Results were Read Back by Jelani Deleon MD to Peter Becerra DO, and understanding confirmed on 06/17/2024 13:53:32 (ET). Electronically Signed: Jelani Deleon MD at 13:52 EST Reading Location ID and State: [address] [place] [address] , Service support , Discharge Plan Triage Chief Complaint: Syncope ED Provider: Peter Becerra Dx/Rx/DC Orders Clinical Impression: Syncope, Lung mass Instructions: Causes of Syncope Prescriptions: No Action Eliquis 5 mg tablet 5 mg PO BID Qty: 60 3RF (DME) Disability Placard See Rx Instructions .ROUTE .MEDSUPPLY Qty: 1 0RF Rx Instructions: Expires in 5 years trazodone 50 mg tablet 50 mg PO QHS diltiazem HCl 180 mg capsule,ext.rel 24h degradable 180 mg PO QDAY loratadine 10 mg tablet 10 mg PO QDAY Symbicort 160-4.5 mcg/actuation HFA aerosol inhaler 2 puff INHALATION BID Qty: 10.2 3RF Rx Instructions: administer with spacer, rinse mouth after each use Spiriva Respimat 1.25 mcg/actuation mist 2 puff INHALATION DAILY Qty: 4 3RF albuterol sulfate 2.5 mg /3 mL (0.083 %) solution for nebulization 2.5 mg inhalation Q6H Qty: 180 11RF albuterol sulfate 90 mcg/actuation HFA aerosol inhaler 2 inh PO Q4H PRN (Reason: shortness of breath or wheezing) Qty: 8.5 6RF lisinopril 10 MG tablet 10 mg PO DAILY acetaminophen 500 MG tablet 1,000 mg PO DAILY PRN PRN (Reason: Pain Or Fever) pantoprazole 40 mg tablet,delayed release (DR/EC) 40 mg PO DAILY Patient Comments: TAKE 1 TABLET BY MOUTH EVERY DAY buspirone 5 mg Tablet 5 mg PO TID Qty: 0 0RF metoprolol tartrate 50 mg Tablet 100 mg PO BID Qty: 0 0RF sertraline 50 mg Tablet 50 mg PO DAILY Qty: 0 0RF Other Ambulatory Orders: Fast Pass: Oncology Referral [facility] (Routine) Facility: [facility] - Location: [facility] Ordered By: Dr. Peetr Becerra Primary Care Provider: Mirta Feliciano Referrals: Blayne Schrader MD [Med Staff - Active Staff] - Mirta Feliciano, [employer] [Primary Care Provider] - Activity Restrictions/Additional Instructions: Thank you for trusting us with your care today! Please take Tylenol (2 pills, 650 mg), ibuprofen (2 pills, 400 mg) every 6 hours as needed for pain and fever control. Please return to the emergency department if your symptoms change or worsen. Please follow with your primary care physician for further outpatient evaluation and management. And lieu of the lung mass that we found in your CT scan you have been scheduled for oncology follow-up appointment at 9 AM tomorrow morning here at [facility] Oncology clinic with Dr. Schrader. Print Language: Irish Disposition Disposition: Home, Self Care
--- NOTE | 2024-06-17 12:29 | CT_ITS ---
We are attempting to reach an attending provider to discuss findings. An addendum with communication details will be sent when the communication is complete. EXAM: CT ANGIOGRAPHY CHEST WITHOUT AND WITH INTRAVENOUS CONTRAST CLINICAL INDICATION: syncope r/o PE TECHNIQUE: Helically acquired angiography images were obtained of the chest without and with intravenous contrast. This CT exam was performed using one or more of the following dose reduction techniques: automated exposure control, adjustment of the mA and/or kV according to patient size, and/or use of iterative reconstruction technique. MIP reconstructed images were created and reviewed. CONTRAST: IV 100mL [id number] RADIATION DOSE: CTDIvol = 10.83 mGy, DLP = 428.11 mGy-cm COMPARISON: No relevant prior studies available. FINDINGS: PULMONARY ARTERIES: Unremarkable. Normal in caliber. No evidence of pulmonary embolism. AORTA: Intramural thrombus of the partially included ectatic upper abdominal aorta. Calcified and noncalcified plaques along the transverse thoracic aorta and descending thoracic aorta. No thoracic aortic aneurysm or dissection. GREAT VESSELS OF AORTIC ARCH: Unremarkable. Normal in caliber. No evidence of dissection. RENAL ARTERIES: Greater than 50% stenosis of the right proximal renal artery and at least 50% stenosis of the left proximal renal artery. LUNGS AND PLEURAL SPACES: 4.7 x 2.3 cm pleural-based mass in the lateral aspect of right upper lobe. This extends into right fourth and fifth intercostal space. This is malignant neoplasm until proven otherwise. Mild pulmonary hyperinflation and flattening of the hemidiaphragm. 7 mm perifissural nodule in the superior segment of the right lower lobe. Minimal paraseptal cysts and centrilobular cysts in the right upper lobe and few centrilobular cysts in the left upper lobe. No pneumothorax. HEART: Unremarkable. Heart size is normal. No pericardial effusion. No significant coronary artery calcifications. MEDIASTINUM: Unremarkable. No mediastinal or hilar adenopathy. Esophagus is unremarkable. No hiatal hernia. THYROID: Unremarkable. No thyroid lesions. BONES/JOINTS: Unremarkable. No suspicious lytic or blastic abnormality. UPPER ABDOMEN: Prominent cast of nonobstructing stone in the right renal hilum extending into the right upper renal infundibula and nonobstructing stone in the right lower renal infundibulum. No right hydronephrosis. 1.3 cm low-attenuation lesion in left posterior renal cortex with CT number of 11.41 Hounsfield units is simple cyst. CT/CTA Chest W/WO Contrast IMPRESSION: 1. No CTA evidence of pulmonary thromboemboli, thoracic aortic aneurysm or dissection. 2. 4.7 x 2.3 cm pleural-based mass in the lateral aspect of the right upper lobe extending into the right fourth and fifth lateral intercostal space. This is malignant neoplasm until proven otherwise. This is feasible for CT-guided core biopsy. 3. 7 mm perifissural nodule in the superior segment of the right lower lobe. Lung-RADS score: 2S - Benign Appearance or Behavior. Additional clinically significant or potentially clinically significant findings are described. Recommend continued annual screening with a low-dose CT (LDCT) in 12 months. 4. Centrilobular cystic emphysema predominant and fewer paraseptal cystic emphysema type of COPD. 5. Greater than 50% stenosis of the right proximal renal artery and at least 50% stenosis of the left proximal renal artery. 6. Intramural thrombus in the included portion of the ectatic upper abdominal aorta. I am uncertain if there is infrarenal abdominal aortic aneurysm since only a small portion of the ectatic upper abdominal aorta is included. 7. Prominent cast of nonobstructing stone in the right renal hilum extending into the right upper renal infundibula and right lower renal infundibulum. No right hydronephrosis. No stones or hydronephrosis in the left kidney. 8. 1.3 cm low-attenuation lesion in the left posterior renal cortex with CT number of 11.41 Hounsfield units is simple cyst. ACR White Paper guidelines (Herhunter, et al. JACR 2018; 15(2):264-273) suggest no follow-up is necessary. Electronically Signed: Jelani Deleon MD at 13:52 EST ,
[2024-06-17 12:37] LABS: Hematocrit 31.1 % (37-47); Hemoglobin 9.2 g/dL (12.0-15.0); Mean Corp Hgb Conc 29.6 g/dL (32-36); Mean Corpuscular Hgb 24.6 pg (27.0-32.0); Mean Corpuscular Volume 83.2 fL (81-99); Mean Platelet Vol. 11.4 fl (6.2-12.0); Platelet Count 262 K/mm3 (150-450); RBC Distribution Width CV 14.5 % (11.6-14.6); RBC Distribution Width SD 43.5 fl (35.1-43.9); Red Blood Count 3.74 M/mm3 (4.2-5.4); White Blood Count 12.4 K/mm3 (4.4-11.0)
[2024-06-17 12:52] LABS: Anion Gap 8 (5-15); BUN 15 mg/dL (7-18); BUN/Creat Ratio 23.8 RATIO (10-20); Chloride 104 mmol/L (98-107); Creatinine, Serum 0.63 mg/dL (0.55-1.02); EST Glomerular Filtration Rate 100 mL/min (>60); Est Glom Filt Rate - Afr Amer 122 mL/min (>60); Estimated Creatinine Clearance 68.18 ml/min; Glucose 244 mg/dL (74-106); Potassium 3.6 mmol/L (3.5-5.1); Sodium Level 136 mmol/L (136-145); Troponin-I HS (w/2H Reflex) 17 pg/mL (3.0-54.0)
[2024-06-17 13:04] LABS: BNP,B-Type NATRIURETIC PEPTIDE 23.2 pg/mL (0-100)
[2024-06-17 14:06] VITALS: BP 137/62; PULSE 84; RESP 17; TEMP 36.8; O2SAT 97
[2024-06-17 14:34] LABS: Blood Gas Specimen Type VEN; O2 Delivery Device Not entered; SITE Not entered; VBG BASE EXCESS -2 mmol/L (-1.0-3.5); VBG Bicarbonate 24 mmol/L (22-26); VBG PO2 56 mmHg (25-40); VBG SO2 88 % (50-70); VBG TCO2 25 mmol/L (23-33); VBG pCO2 41.1 mmHg (41-51); VBG pH 7.37 (7.32-7.42)
[2024-06-17 14:35] LABS: Reflex Troponin-HS? (from REC) Y
[2024-06-17 15:00] VITALS: BP 101/77; PULSE 99; RESP 17; O2SAT 94
[2024-06-17 15:03] LABS: Troponin-I HS 18 pg/mL (3.0-54.0)
== END 2024-06-17 15:30 | disposition home or self-care (01) ==
PROVIDERS: Emergency Provider Emergency Medicine; PCP Nurse Practitioner Family; Visit Provider Emergency Medicine
DX: R55 Syncope and collapse (principal); J44.9 Chronic obstructive pulmonary disease, unspecified; I48.91 Unspecified atrial fibrillation; I42.8 Other cardiomyopathies; R91.8 Other nonspecific abnormal finding of lung field; E78.5 Hyperlipidemia, unspecified; I25.2 Old myocardial infarction; Z79.01 Long term (current) use of anticoagulants; Z79.51 Long term (current) use of inhaled steroids; Z79.899 Other long term (current) drug therapy; Z87.891 Personal history of nicotine dependence
CPT/HCPCS: 71275; 80048; 82803; 83880; 84484; 85027; 93005; 99285; J7030; Q9967; A4216

== ENCOUNTER 2024-12-19 22:23 | Inpatient (IN) | payer MEDICARE, MEDICAID, SELFPAY ==
[2024-12-19] VITALS (31 sets, daily range): BP systolic 0–111; BP diastolic 0–69; PULSE 0–114; RESP 0–100; TEMP -17.7–36.1; O2SAT 10–100; BMI 24.8
--- NOTE | 2024-12-19 22:28 | EKG12_ITS ---
Test Reason : UNRESPONSIVE Blood Pressure : */* mmHG Vent. Rate : 94 BPM Atrial Rate : 94 BPM P-R Int : 170 ms QRS Dur : 94 ms QT Int : 352 ms P-R-T Axes : 92 83 101 degrees QTcB Int : 440 ms Sinus rhythm with Premature atrial complexes Septal infarct , age undetermined Abnormal ECG Confirmed by Julien Broderick ([id number]), desk editor ZUNILDA BLANCAS ([id number]) on 12/23/2024 10:44:30 AM Referred By: Confirmed By: Julien Broderick
--- NOTE | 2024-12-19 22:28 | CT_ITS ---
PROCEDURE: BRAIN/HEAD WITHOUT CONTRAST 12/20/2024 REASON FOR EXAM: ALTERED MS TECHNIQUE: Head CT without intravenous contrast. Coronal and Sagittal reconstruction series were provided. One or more dose reduction techniques were used (e.g., Automated exposure control, adjustment of the mA and/or kV according to patient size, use of iterative reconstruction technique. RADIATION DOSE SUMMARY: CTDlvol: 44.99 mGy DLP: 880.47 mGycm COMPARISON: None available FINDINGS: No intracranial hemorrhage, mass effect or CT evidence of large vascular territory acute appearing infarct. 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 The ventricles are within limits and midline. Volume loss, atrophy. Serna-white differentiation appears preserved. Paranasal sinuses, mastoids and orbits appear within limits. Hypoplastic right mastoid tip. Bilateral parasellar carotid calcification. CT/Brain/Head without Contrast IMPRESSION: No intracranial hemorrhage, mass effect or CT evidence of large vascular territ ory acute appearing infarct. 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 Volume loss, atrophy. Reading Location: [id number]
--- NOTE | 2024-12-19 22:31 | EX.ED.CRITCA ---
HPI History of Present Illness Chief Complaint: Cardiac Arrest Informant: EMS Narrative Narrative: Presented as a prehospital cardiac arrest call. Reported no COPD end-stage on oxygen at home CHF history also noted Eliquis therapy per EMS. They got called earlier to the patient's house due to respiratory distress 7 PM arrival states her pulse ox was in the 70s on her oxygen. She declined being transported at that time. Reported she was likely sick for a few days. EMS reports she was alert and oriented and refused care then was told to call back if symptoms worsen. Per EMS right upon arrival she took a couple breath and arrested. They had brief ROSC. She had left IO placed given epi upon their arrival. Jose pump i-gel was placed by EMS. [facility] Medical History Acute on chronic respiratory failure with hypoxia and hypercapnia Afib Smoker On home oxygen therapy Protein calorie malnutrition Hyperglycemia Elevated troponin I level Leukocytosis History of non-ST elevation myocardial infarction (NSTEMI) (06/21/19) Hyperlipidemia Non-ischemic cardiomyopathy Essential (primary) hypertension Chronic respiratory failure with hypoxia DONNA (obstructive sleep apnea) Stage 4 very severe COPD by GOLD classification Home Medications ?Medication ?Instructions ?Recorded ?Last Taken ?Type acetaminophen 500 mg tablet 1,000 mg PO DAILY PRN PRN Pain Or 10/04/18 06/13/19 History Fever lisinopril 10 mg tablet 10 mg PO DAILY BP 10/04/18 06/14/19 History Disability Placard #1 ea 03/15/23 Unknown Rx apixaban 5 mg tablet (Eliquis) 5 mg PO BID #60 tabs 03/15/23 Unknown Rx pantoprazole 40 mg tablet,delayed 40 mg PO DAILY GERD 07/24/23 Unknown History release buspirone 5 mg tablet 5 mg PO TID #0 tabs 08/10/23 Unknown Rx metoprolol tartrate 50 mg tablet 100 mg (2 x 50 mg) PO BID #0 tabs 08/10/23 Unknown Rx sertraline 50 mg tablet 50 mg PO DAILY #0 tabs 08/10/23 Unknown Rx diltiazem HCl 180 mg 180 mg PO QDAY 12/04/23 Unknown History capsule,extended release 24 hr, controlled loratadine 10 mg tablet 10 mg PO QDAY 12/04/23 Unknown History trazodone 50 mg tablet 50 mg PO QHS 12/04/23 Unknown History albuterol sulfate 2.5 mg/3 mL 2.5 mg (3 mL) inhalation Q6H #180 06/17/24 Unknown Rx (0.083 %) solution for nebulization mL albuterol sulfate 90 mcg/actuation 2 inh PO Q4H PRN shortness of 06/17/24 Unknown Rx aerosol inhaler breath or wheezing #8.5 grams tiotropium bromide 1.25 2 puff inhalation DAILY #4 grams 06/17/24 Unknown Rx mcg/actuation mist for inhalation (Spiriva Respimat) budesonide-formoterol HFA 160 2 puff inhalation BID #10.2 grams 11/11/24 Unknown Rx mcg-4.5 mcg/actuation aerosol inhaler (Symbicort) Allergy/AdvReac Type Severity Reaction Status Date / Time atorvastatin (From Lipitor) Allergy Unknown Unknown Verified 12/19/24 22:39 codeine Allergy Rash Verified 12/19/24 22:39 ibuprofen Allergy Rash Verified 12/19/24 22:39 Family History Father Lung cancer Mother Breast cancer Parkinsons disease Surgical History H/O tubal ligation Social History household members: significant other housing: house Smoking Status: Former smoker quit date: 07/24/23 alcohol intake: never substance use type: does not use ROS ROS ED Review of Systems ROS Unobtainable: due to endotracheal tube and due to mental condition EXAM Physical Exam Const Vital Signs: 12/19/24 22:24 12/19/24 22:24 12/19/24 22:25 Temperature 0 F L Temperature Source Temporal Pulse Rate 0 L Pulse Rate [3] 108 H Respiratory Rate 100 H 0 L Respiratory Pattern Blood Pressure 0/0 L Blood Pressure [3] 111/32 L Blood Pressure Mean Blood Pressure Source Blood Pressure Position Blood Pressure Location Pulse Ox Oxygen Delivery Method Ambu-Bag Mechanical Ventilator Oxygen Flow Rate (L/min) 100 100 Fraction of Inspired Oxygen (FIO2) 12/19/24 22:28 12/19/24 22:28 12/19/24 22:28 Temperature 96.3 F L Temperature Source Core Pulse Rate 108 H 109 H Pulse Rate [3] Respiratory Rate 20 H Respiratory Pattern Blood Pressure 111/32 L Blood Pressure [3] Blood Pressure Mean 58 Blood Pressure Source Blood Pressure Position Blood Pressure Location Pulse Ox 96 Oxygen Delivery Method Mechanical Ventilator Mechanical Ventilator Oxygen Flow Rate (L/min) 100 Fraction of Inspired Oxygen (FIO2) 12/19/24 22:30 12/19/24 22:35 12/19/24 22:35 Temperature Temperature Source Pulse Rate 107 H 93 92 Pulse Rate [3] Respiratory Rate 17 16 13 Respiratory Pattern Normal Blood Pressure 61/49 L 79/60 L Blood Pressure [3] Blood Pressure Mean 54 67 Blood Pressure Source Blood Pressure Position Blood Pressure Location Pulse Ox 69 100 Oxygen Delivery Method Oxygen Flow Rate (L/min) Fraction of Inspired Oxygen (FIO2) 100 12/19/24 22:41 12/19/24 22:45 12/19/24 22:45 Temperature 97.0 F L Temperature Source Core Pulse Rate 84 90 85 Pulse Rate [3] Respiratory Rate 21 H 16 16 Respiratory Pattern Blood Pressure 57/34 L 56/32 L 54/24 L Blood Pressure [3] Blood Pressure Mean 43 40 32 Blood Pressure Source Monitor Blood Pressure Position Supine Blood Pressure Location Left Arm Pulse Ox 100 100 Oxygen Delivery Method Oxygen Flow Rate (L/min) Fraction of Inspired Oxygen (FIO2) 12/19/24 22:46 12/19/24 22:50 12/19/24 22:55 Temperature Temperature Source Pulse Rate 87 88 Pulse Rate [3] Respiratory Rate 16 0 L Respiratory Pattern Blood Pressure 63/50 L 66/46 L 67/46 L Blood Pressure [3] Blood Pressure Mean 57 54 55 Blood Pressure Source Blood Pressure Position Blood Pressure Location Pulse Ox 100 Oxygen Delivery Method Oxygen Flow Rate (L/min) Fraction of Inspired Oxygen (FIO2) 12/19/24 22:56 12/19/24 22:58 12/19/24 23:00 Temperature Temperature Source Pulse Rate 89 Pulse Rate [3] Respiratory Rate 16 Respiratory Pattern Blood Pressure 56/39 L 55/32 L 51/25 L Blood Pressure [3] Blood Pressure Mean 46 41 33 Blood Pressure Source Blood Pressure Position Blood Pressure Location Pulse Ox 100 Oxygen Delivery Method Oxygen Flow Rate (L/min) Fraction of Inspired Oxygen (FIO2) 12/19/24 23:03 12/19/24 23:05 12/19/24 23:07 Temperature Temperature Source Pulse Rate 91 91 90 Pulse Rate [3] Respiratory Rate 16 17 16 Respiratory Pattern Blood Pressure 44/28 L 55/37 L 57/33 L Blood Pressure [3] Blood Pressure Mean 35 42 41 Blood Pressure Source Blood Pressure Position Blood Pressure Location Pulse Ox 100 Oxygen Delivery Method Oxygen Flow Rate (L/min) Fraction of Inspired Oxygen (FIO2) 12/19/24 23:08 12/19/24 23:10 12/19/24 23:13 Temperature 97.0 F L 96.6 F L Temperature Source Core Core Pulse Rate 91 89 100 Pulse Rate [3] Respiratory Rate 16 16 16 Respiratory Pattern Blood Pressure 55/37 L 47/29 L 64/40 L Blood Pressure [3] Blood Pressure Mean 43 37 48 Blood Pressure Source Monitor Monitor Blood Pressure Position Supine Blood Pressure Location Left Arm Pulse Ox 100 100 Oxygen Delivery Method Oxygen Flow Rate (L/min) Fraction of Inspired Oxygen (FIO2) 12/19/24 23:15 12/19/24 23:16 12/19/24 23:18 Temperature 96.6 F L Temperature Source Core Pulse Rate 92 93 91 Pulse Rate [3] Respiratory Rate 16 14 16 Respiratory Pattern Blood Pressure 64/40 L 51/38 L Blood Pressure [3] Blood Pressure Mean 49 42 Blood Pressure Source Monitor Blood Pressure Position Supine Blood Pressure Location Left Arm Pulse Ox 10 Oxygen Delivery Method Oxygen Flow Rate (L/min) Fraction of Inspired Oxygen (FIO2) 12/19/24 23:20 12/19/24 23:24 12/19/24 23:25 Temperature 96.2 F L Temperature Source Core Pulse Rate 94 92 97 Pulse Rate [3] Respiratory Rate 16 16 16 Respiratory Pattern Blood Pressure 51/36 L 69/44 L 72/41 L Blood Pressure [3] Blood Pressure Mean 41 52 52 Blood Pressure Source Monitor Blood Pressure Position Blood Pressure Location Pulse Ox 100 100 Oxygen Delivery Method Oxygen Flow Rate (L/min) Fraction of Inspired Oxygen (FIO2) 12/19/24 23:29 12/19/24 23:30 12/19/24 23:35 Temperature Temperature Source Pulse Rate 99 102 H Pulse Rate [3] Respiratory Rate 16 16 Respiratory Pattern Blood Pressure 69/44 L 77/52 L Blood Pressure [3] Blood Pressure Mean 54 59 Blood Pressure Source Blood Pressure Position Blood Pressure Location Pulse Ox Oxygen Delivery Method Oxygen Flow Rate (L/min) Fraction of Inspired Oxygen (FIO2) 50 12/19/24 23:40 12/19/24 23:40 12/19/24 23:45 Temperature 96.2 F L Temperature Source Core Pulse Rate 100 107 H Pulse Rate [3] Respiratory Rate 16 16 Respiratory Pattern Blood Pressure 72/57 L 72/57 L 79/45 L Blood Pressure [3] Blood Pressure Mean 62 63 57 Blood Pressure Source Monitor Blood Pressure Position Supine Blood Pressure Location Left Arm Pulse Ox 100 Oxygen Delivery Method Oxygen Flow Rate (L/min) Fraction of Inspired Oxygen (FIO2) 12/19/24 23:50 12/19/24 23:52 12/19/24 23:55 Temperature 96.3 F L Temperature Source Core Pulse Rate 114 H 100 111 H Pulse Rate [3] Respiratory Rate 17 16 14 Respiratory Pattern Blood Pressure 87/69 L 94/57 L 64/25 L Blood Pressure [3] Blood Pressure Mean 77 69 38 Blood Pressure Source Blood Pressure Position Blood Pressure Location Pulse Ox 100 Oxygen Delivery Method Room Air Oxygen Flow Rate (L/min) Fraction of Inspired Oxygen (FIO2) 12/20/24 00:00 12/20/24 00:10 12/20/24 00:14 Temperature 96.2 F L Temperature Source Core Pulse Rate 108 H Pulse Rate [3] Respiratory Rate 14 Respiratory Pattern Blood Pressure 85/50 L 88/58 L Blood Pressure [3] Blood Pressure Mean 61 69 Blood Pressure Source Blood Pressure Position Blood Pressure Location Pulse Ox 100 Oxygen Delivery Method Oxygen Flow Rate (L/min) Fraction of Inspired Oxygen (FIO2) 45 12/20/24 00:15 12/20/24 00:20 12/20/24 00:25 Temperature 96.2 F L 96.2 F L 96.2 F L Temperature Source Core Core Core Pulse Rate 114 H 115 H 114 H Pulse Rate [3] Respiratory Rate 16 16 16 Respiratory Pattern Blood Pressure 94/57 L 82/34 L 89/49 L Blood Pressure [3] Blood Pressure Mean 68 49 62 Blood Pressure Source Blood Pressure Position Blood Pressure Location Pulse Ox 93 Oxygen Delivery Method Oxygen Flow Rate (L/min) Fraction of Inspired Oxygen (FIO2) 12/20/24 00:30 12/20/24 00:35 12/20/24 00:40 Temperature 96.3 F L 96.2 F L Temperature Source Core Core Pulse Rate 106 H 116 H Pulse Rate [3] Respiratory Rate 26 H 16 Respiratory Pattern Blood Pressure 85/60 L 92/44 L 81/49 L Blood Pressure [3] Blood Pressure Mean 68 59 59 Blood Pressure Source Blood Pressure Position Blood Pressure Location Pulse Ox 95 Oxygen Delivery Method Oxygen Flow Rate (L/min) Fraction of Inspired Oxygen (FIO2) 12/20/24 00:45 12/20/24 00:50 12/20/24 00:55 Temperature 96.3 F L 96.3 F L 96.4 F L Temperature Source Core Core Core Pulse Rate 126 H 155 H 154 H Pulse Rate [3] Respiratory Rate 21 H 15 16 Respiratory Pattern Blood Pressure 78/39 L 78/60 L 72/44 L Blood Pressure [3] Blood Pressure Mean 49 67 54 Blood Pressure Source Blood Pressure Position Blood Pressure Location Pulse Ox Oxygen Delivery Method Oxygen Flow Rate (L/min) Fraction of Inspired Oxygen (FIO2) 12/20/24 00:59 12/20/24 01:00 12/20/24 01:30 Temperature 96.4 F L 96.4 F L 96.5 F L Temperature Source Core Core Core Pulse Rate 154 H 156 H 128 H Pulse Rate [3] Respiratory Rate 15 20 H 16 Respiratory Pattern Blood Pressure 63/27 L 73/30 L Blood Pressure [3] Blood Pressure Mean 34 44 Blood Pressure Source Blood Pressure Position Blood Pressure Location Pulse Ox 96 Oxygen Delivery Method Mechanical Ventilator Oxygen Flow Rate (L/min) Fraction of Inspired Oxygen (FIO2) 12/20/24 01:30 Temperature Temperature Source Pulse Rate 138 H Pulse Rate [3] Respiratory Rate 16 Respiratory Pattern Blood Pressure 72/52 L Blood Pressure [3] Blood Pressure Mean 58 Blood Pressure Source Blood Pressure Position Blood Pressure Location Pulse Ox 99 Oxygen Delivery Method Oxygen Flow Rate (L/min) Fraction of Inspired Oxygen (FIO2) Jose device running, Eyes Eyes Narrative: Pupils do react to light. Resp Resp Narrative: Bilateral breath sounds with [id number]. Extremity Extremity Narrative: Left IO. Neuro Neuro Narrative: Unresponsive. Skin Skin Narrative: There is fungal infection in pelvic groin and buttocks. There was pinpoint small area of bleed lower back through fungal infection. Anterior neck also noted some fungal infection. Sepsis Attestation Sepsis Alert: Yes Sepsis Attestation: Agree w/Sepsis Date exam was performed: 12/20/24 Possible Source of Sepsis: Pulmonary Sepsis Organ Dysfunction Criteria Present: SBP < 90 mmHg or MAP < 65 mmHg and Lactic Acid > 2 mmol/L Fluid Resuscitation Fluid resuscitation indicated?: Yes Fluid Resuscitation ordered: 30 ml/kg fluid bolus ordered Sepsis Note Date exam was performed: 12/20/24 Sepsis Attestation: Sepsis re-evaluation was performed Response to fluids: Vasopressors started MDM MDM MDM Narrative Medical decision making narrative: Interventions / MDM: Differential diagnosis: Cardiopulmonary arrest with return of spontaneous circulation, pneumonia, acute hypoxic respiratory failure, lactic acidosis, hyperkalemia, septic shock secondary to pneumonia Diagnosis considered but do not suspect: N/A My EKG interpretation: Sinus rhythm 94, no ST changes. QTc 440. Imaging independently reviewed and interpreted by myself: Chest x-ray post intubation and central line placement: Lines in adequate position right upper lobe infiltrate, bibasilar infiltrate. KUB with OG in the gastrum. CT brain: No acute process. Post central line placement chest x-ray: No pneumothorax, central line and superior vena cava. External documents reviewed: N/A Test considered but not ordered:N/A ED course: ACLS continued. Patient given additional epinephrine bicarb D50. Shortly after there was return of spontaneous circulation. I gel swapped over to ETT. Sepsis workup initiated. Eliquis CT brain was obtained. Chest x-ray Lundberg catheter replaced. Shortly after blood pressure was low, bedside ultrasound noted symmetric left ventricular movement, decent contraction noted. Fluids were continued at this time. Peripheral Levophed was started for hypotension. 2300: Emergent central line was placed. Normal sterile conditions. Ultrasound evaluated IJ with good dilation no significant collapse. Avoided the area of fungal infection. Lidocaine used for local analgesia. Seldinger technique with ultrasound first stick going in dark blood return. Guidewire skin incision dilation, triple-lumen cath placed 15 cm and secured. All 3 ports yung back and flushed without any problems. Dressing was placed. During central line placement was called potassium returned at 8.4. I ordered for calcium gluconate 3 g. Pressures were low, continue increase of Levophed. ABG obtained pH of 7.26 CO2 28 PaO2 208 bicarb of 13 on 100% oxygenation. Chest with respiratory will back down to 50%. Will continue respiratory rate at 16 at this time. Chest x-ray Central line above the superior vena cava no pneumothorax. Possible right upper lobe infiltrative findings. 2315: White count at 22 her creatinine was 1.5 with potassium 3.4 when called in. Fresh blood from central line was collected and sent. EKG with no hyperkalemic changes. She is covered broadly with Zosyn and vancomycin at this time. 0015: After returning from CT I was told by nursing her central line got pulled during transfer over to the bed. This was replaced bedside with no complications. Procedure note: Sutures were removed from the caps. ChloraPrep of the skin was performed. There was noted slight ecchymosis around the orifice preprocedure. Full sterile conditions. lidocaine for skin anesthetizing. Seldinger technique with ultrasound followed through the previous orifice. Dark blood return on first stick on entrance. Dilation of the vessel performed, triple-lumen cath was placed 16 cm, this was secured at the hub. All 3 ports yung back and flushed with no difficulties. Dressing was placed by myself. Post x-ray interpreted by myself no pneumothorax, line in the superior vena cava. 0040: CT brain negative. 0053: Patient heart rate jumped to the 150s EKG narrow complex tachycardia from records from echo she had A-fib a flutter history. With sudden flip I am concerned likely atrial flutter. Blood pressure soft. Preparations made for planned cardioversion. She is noted to be on Eliquis. 0120: Her monitor heart rate persistent 150s. Synchronized cardioversion performed x 3 initially 125, 150, then 200 J after IV fentanyl 50 mics were given. Unsuccessful. She is now in A-fib with RVR on the monitor. 0128: EKG A-fib RVR 129 systolic pressure 70s. She is on pressors. I discussed with eyelet cutter Dr. Armenta, will start amiodarone drip with bolus of 150 mg. Echocardiogram in the morning. In the interim, pressures were low, vasopressin was ordered to assist with blood pressure control. I spoke with hospitalist Dr. Ascencio for admission in the ICU. Re-evaluation: Critical Disposition discussed with patient/family/significant other: Case discussed with consulting clinician: Cardiology, hospitalist This note was generated with [employer] dictation software. It may contain incorrect words, spelling, and punctuation that were not noted in checking the note before signing. Lab Data Attestation: I reviewed the patient's lab results. Labs: Laboratory Results - last 24 hr 12/19/24 12/19/24 12/20/24 22:30 23:12 01:07 WBC TAPE RULES PRINTING MACHINE OPERATOR Corrected WBC 20.6 H RBC 3.70 L Hgb 6.6 L Hct 26.7 L MCV 72.2 L MCH 17.8 L MCHC 24.7 L RDW Std Deviation 52.9 H RDW Coeff of Sami 20.7 H Plt Count 640 H MPV 9.4 Neut % (Auto) Not Reportable Absolute Neuts (auto) 15.6 H Absolute Lymphs (auto) 4.11 Total Counted 100 Neutrophils % (Manual) 64 Band Neutrophils % 12 H Metamyelocytes % 1 Myelocytes % 3 H Nucleated RBCs/100 WBC 9 H Diff Path Review May foll Platelet Estimate MOD INC Anisocytosis 1+ PT 29.8 H INR 2.8 APTT 38.4 H Sodium 132 L Potassium 8.4 H* 6.0 H* Chloride 94 L Carbon Dioxide 14.8 L Anion Gap 23 H BUN 42 H Creatinine 1.55 H Estim Creat Clear Calc 33.42 L Est GFR (MDRD) Non-Af 37 L BUN/Creatinine Ratio 27.2 H Glucose 190 H Lactic Acid 9.7 H* Calcium 9.3 Total Bilirubin 0.22 AST 69 H ALT 35 Alkaline Phosphatase 98 Troponin T High Sens 75 H* Troponin T Hi Sens 2 [place] [address] H Total Protein 6.1 Albumin 3.1 L Globulin 3.0 Albumin/Globulin Ratio 1.0 Procalcitonin 0.30 H Urine Color Straw Urine Clarity Turbid Urine pH 6.0 Ur Specific Gamaliel 1.015 Urine Protein 500 H Urine Glucose (UA) 100 H Urine Ketones 5 H Urine Occult Blood 250 H Urine Nitrite Negative Urine Bilirubin Negative Urine Urobilinogen Normal Ur Leukocyte Esterase 500 H Urine RBC 10-25 SEEN Urine WBC 25-50 SEEN Ur Squamous Epith Cells 5-10 SEEN Ur Transition Epith Cell 5-10 SEEN Amorphous Sediment 3+ Urine Bacteria 3+ Urine Mucus 0 SEEN POC Glucose 12/20/24 12/20/24 01:11 01:45 WBC Corrected WBC RBC Hgb Hct MCV MCH MCHC RDW Std Deviation RDW Coeff of Sami Plt Count MPV Neut % (Auto) Absolute Neuts (auto) Absolute Lymphs (auto) Total Counted Neutrophils % (Manual) Band Neutrophils % Metamyelocytes % Myelocytes % Nucleated RBCs/100 WBC Diff Path Review Platelet Estimate Anisocytosis PT INR APTT Sodium Potassium Chloride Carbon Dioxide Anion Gap BUN Creatinine Estim Creat Clear Calc Est GFR (MDRD) Non-Af BUN/Creatinine Ratio Glucose Lactic Acid Calcium Total Bilirubin AST ALT Alkaline Phosphatase Troponin T High Sens Troponin T Hi Sens 2 Hr 57 H* NT pro BNP II Total Protein Albumin Globulin Albumin/Globulin Ratio Procalcitonin Urine Color Urine Clarity Urine pH Ur Specific Gamaliel Urine Protein Urine Glucose (UA) Urine Ketones Urine Occult Blood Urine Nitrite Urine Bilirubin Urine Urobilinogen Ur Leukocyte Esterase Urine RBC Urine WBC Ur Squamous Epith Cells Ur Transition Epith Cell Amorphous Sediment Urine Bacteria Urine Mucus POC Glucose 121 H ABG Data ABG results: ABG 12/19/24 22:55 Specimen Type ART Sample Site L Radial pH 7.27 L Bicarbonate Actual 13.0 L Total CO2 14 Base Excess -14 L O2 Saturation 100 H O2 % 100.0 ABG pCO2 28.6 L ABG pO2 209 H Arnoldo Test N/A Respiration Rate 16 O2 Delivery Device Adult Vent Vent Mode AC Tidal Volume 450.0 POC PEEP 5 Radiography Diagnostic Testing: Clinical Impression(s) from Imaging Studies Brain CT 12/19/24 22:28 IMPRESSION: No intracranial hemorrhage, mass effect or CT evidence of large vascular territory acute appearing infarct. 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 Volume loss, atrophy. Reading Location: [facility] Chest X-Ray 12/19/24 23:05 IMPRESSION: Pulmonary findings and support devices as above. Reading Location: [place] [id number] KUB X-Ray 12/19/24 23:05 IMPRESSION: Orogastric tube in satisfactory position. Reading Location: [id number] Chest X-Ray 12/20/24 00:45 IMPRESSION: Right IJ line with tip projecting at the expected location of the superior cavoatrial junction. No radiographic contraindication for use identified. Endotracheal tube 3 cm above the narinder. Reading Location: [facility] Critical Care Time Critical Care Time: Yes Critical care time (excluding procedures): 30-74 minutes, Discussing w/Patient &/or Family/General Ledger Accountant, Discussing w/Consultants, Arranging Admission or Transfer, Performing Direct Patient Care at Bedside and - (45 minutes) Discharge Plan Dx/Rx/DC Orders Clinical Impression: Cardiopulmonary arrest with successful resuscitation, Cardiomyopathy, nonischemic, COPD with acute exacerbation, Acute hypoxic respiratory failure, Pneumonia, Hyperkalemia, Atrial fibrillation with RVR, Septic shock, Encounter for cardioversion procedure Disposition Disposition: Acute Care Hospital [facility] Discharge Date/Time: 12/20/24 03:30
[2024-12-19 22:40] LABS: Hematocrit 26.7 % (37-47); Hemoglobin 6.6 g/dL (12.0-15.0); Mean Corp Hgb Conc 24.7 g/dL (32-36); Mean Corpuscular Hgb 17.8 pg (27.0-32.0); Mean Corpuscular Volume 72.2 fL (81-99); Mean Platelet Vol. 9.4 fl (6.2-12.0); POSITIVE COUNT YES; POSITIVE MORPHOLOGY YES; Platelet Count 640 K/mm3 (150-450); RBC Distribution Width CV 20.7 % (11.6-14.6); RBC Distribution Width SD 52.9 fl (35.1-43.9)
[2024-12-19 22:42] LABS: Differential Indicated MANUAL DIFF
[2024-12-19] MEDS: Norepinephrine 8 MG in 0.9% Normal Saline (250mL Bag) 242 ML 9.4 MG CONT INF (22:45)
[2024-12-19 22:51] LABS: International Normalized Ratio 2.8; Partial Thromboplast Time 38.4 Seconds (24.1-36.2); Prothrombin Time (Protime)PT. 29.8 SECONDS (11.7-14.9)
[2024-12-19 22:58] LABS: Base Excess -14 mmol/L (-2 to +2); Blood Gas Specimen Type ART; Mode AC; O2 Delivery Device Adult Vent; PEEP 5; PO2 209 mmHG (75-100); RR 16; SITE L Radial; SO2 100 % (95-99); Total Carbon Dioxide 14 mmol/L; pCO2 28.6 mmHg (35-45); pH 7.27 (7.35-7.45)
[2024-12-19 22:58] LABS: Pro- Brain NATRIURETIC PEPTIDE 26657 pg/mL (<=900)
[2024-12-19 23:01] LABS: AST(SGOT) 69 U/L (<=31); Alanine Aminotransfer ALT/SGPT 35 U/L (<=34); Albumin, Serum 3.1 g/dL (3.4-4.8); Alkaline Phosphatase 98 U/L (35-104); Anion Gap 23 (5-15); BUN 42 mg/dL (4-19); BUN/Creat Ratio 27.2 RATIO (10-20); Calcium,Total 9.3 mg/dL (7.6-11.0); Carbon Dioxide 14.8 mmol/L (21.0-32.0); Chloride 94 mmol/L (98-108); Creatinine, Serum 1.55 mg/dL (0.70-1.20); EST Glomerular Filtration Rate 37 (>60); Estimated Creatinine Clearance 33.42 ml/min (50-250); Glucose 190 mg/dL (70-99); Protein, Total 6.1 g/dL (5.9-8.4); Sodium Level 132 mmol/L (133-145); Total Bilirubin 0.22 mg/dL (0.00-1.30)
[2024-12-19 23:04] LABS: Potassium 8.4 mmol/L (3.3-5.1)
--- NOTE | 2024-12-19 23:05 | RAD_ITS ---
PROCEDURE: CHEST 1 VIEW (PORTABLE) 12/19/2024 REASON FOR EXAM: ETT TECHNIQUE: Frontal view of the chest. COMPARISON: 08/02/2023. FINDINGS: Hardware: Endotracheal tube terminates 2 cm above the narinder. Orogastric tube terminates below the radiograph. Heart: The heart size is normal. Lungs: Right upper lobe pleural-based mass. Bilateral lower lobe infiltrates. Bones: The bones are unremarkable. Other: RAD/Chest 1 View (Portable) IMPRESSION: Pulmonary findings and support devices as above. Reading Location: [place] [id number]
--- NOTE | 2024-12-19 23:05 | RAD_ITS ---
PROCEDURE: ABDOMEN SINGLE VIEW (PORTABLE) 12/19/2024 REASON FOR EXAM: NG INSERTION TECHNIQUE: Single view abdomen. COMPARISON: None. FINDINGS: Orogastric tube terminates in the proximal gastric body with side hole below the gastroesophageal junction. RAD/Abdomen Single View (Portable) IMPRESSION: Orogastric tube in satisfactory position. Reading Location: [place] [id number]
[2024-12-19 23:24] LABS: Lactic Acid 9.7 mmol/L (0.0-2.0)
[2024-12-19 23:26] LABS: Corrected WBC 20.6 K/mm3 (4.4-11.0); Metamyelocyte 1 % (0-1); Neutrophil-Band 12 % (0-5); Neutrophil-Segmented 64 % (47-70); Total Cells Counted 100 (MANUAL DIFF)
[2024-12-19 23:27] LABS: Anisocytosis 1+; Myelocyte 3 % (0-0); Platelet Estimate MOD INC (ADEQ)
[2024-12-19 23:28] LABS: Nucleated Red Bld Cells,Manual 9 % (0-5)
[2024-12-19] MEDS: Calcium Gluconate 1 GM/10 ML Vial 3 GM IVP (23:29)
[2024-12-19 23:32] LABS: Absolute Lymphocyte Count 4.11 X10^3/uL (0.83-4.51); Absolute Neutrophil Count 15.6 X10^3/uL (2.0-7.7)
[2024-12-19] MEDS: Piperacil/Tazobactam 4.5 GM in 0.9% Normal Saline (100mL MB+) 100 ML IV (23:42)
[2024-12-20] VITALS (67 sets, daily range): BP systolic 33–101; BP diastolic 11–73; PULSE 65–159; RESP 14–30; TEMP 35.7–38.3; O2SAT 93–100; BMI 23.6
--- NOTE | 2024-12-20 00:14 | ED.RN ---
2400 pt went to cat scan, while pt placed on cat scan table the central line became disengaged and came out.pressure held at theinserttion site and lephoved temporarily placed in periphal. dr bejarano made aware,preparing for central line.
[2024-12-20] MEDS: Insulin Lispro 10 UNIT in Syringe 0 ML 6 UNIT IV (00:37)
--- NOTE | 2024-12-20 00:45 | RAD_ITS ---
PROCEDURE: CHEST 1 VIEW (PORTABLE) 12/20/2024 REASON FOR EXAM: CENTRAL LINE EVAL TECHNIQUE: Frontal view of the chest. At 00:43 COMPARISON: 12/19/2024 at 23:13 FINDINGS: Right IJ line with tip projecting at the expected location of the superior cavoatrial junction. No radiographic contraindication for use identified. Endotracheal tube 3 cm above the narinder. Orogastric tube extends off the inferior edge of the film. No pneumothorax identified. Patchy opacity right lung again noted. RAD/Chest 1 View (Portable) IMPRESSION: Right IJ line with tip projecting at the expected location of the superior cavo atrial junction. No radiographic contraindication for use identified. Endotracheal tube 3 cm above the narinder. Reading Location: [id number]
--- NOTE | 2024-12-20 00:49 | EKG12_ITS ---
Test Reason : RHYTHM CHANGE Blood Pressure : */* mmHG Vent. Rate : 129 BPM Atrial Rate : * BPM P-R Int : * ms QRS Dur : 108 ms QT Int : 306 ms P-R-T Axes : * 74 267 degrees QTcB Int : 448 ms Atrial fibrillation with rapid ventricular response Incomplete right bundle branch block Nonspecific ST & T wave abnormality Abnormal ECG Confirmed by Julien Broderick ([id number]), avid editor ZUNILDA BLANCAS ([id number]) on 12/23/2024 10:46:09 AM Referred By: Confirmed By: Julien Broderick
[2024-12-20] MEDS: Vancomycin HCl 1,750 MG in 0.9% Normal Saline (500mL Bag) 500 ML 250 MG IV (00:55)
[2024-12-20] MEDS: Dextrose 10%-Water 250 ML 999 ML IV (01:10)
[2024-12-20 01:12] LABS: Mucous, Urine 0 SEEN /hpf (<or=2+)
[2024-12-20] MEDS: fentaNYL 100 MCG/2 ML Ampul 50 MCG IV ×2 (01:18→02:32)
[2024-12-20 01:29] LABS: Bedside Glucose 121 mg/dL (74-106)
[2024-12-20 01:36] LABS: Color, Urine Straw (Yellow); Glucose, Dipstick 100 mg/dl (Normal); Ketone-Dipstick 5 mg/dl (Negative); Leukocyte Esterase-Dipstick 500 /ul (Negative); Nitrite-Dipstick Negative (Negative); Occult Blood-Urine 250 /ul (Negative); Protein-Dipstick 500 mg/dl (Negative); Specific Gravity, Urine 1.015 (1.002-1.030); Urine Bilirubin Dipstick Negative (Negative); Urine Clarity Turbid (Clear); Urine Urobilinogen Normal (Normal)
[2024-12-20] MEDS: Albuterol *CONC* 2.5mg/0.5mL VIAL.NEB. 10 MG INHALATION (01:39)
--- NOTE | 2024-12-20 01:55 | PCM.HP.STD ---
HPI - General General Date of Admission: 12/20/24 HPI Narrative KARYNA SALEH, is a 64 F who presents to the hospital for cardiac arrest. There is no family at bedside and during my evaluation she was intubated. Her my discussion with the ER physician, EMS had gone to her house earlier in the evening for respiratory distress however she refused to come into the hospital. And then a few hours later they presented back to her residence and as a approach she went into cardiac arrest, they started resuscitation immediately and she was brought to the ER. She was intubated and had a central line placed and imaging studies were done, in the process of getting off the CT scan her central line was reportedly removed so this had to be reinserted by the ED physician. During that process she went into A-fib she has a history of. In the ER she was found to be anemic with a leukocytosis, her hemoglobin 6.6 with microcytic, she had an ABG with a pH of 7.27 and a bicarb of 13 pCO2 of 28.6 and a PO2 of 209. Her serum bicarb was 14.8 with an anion gap of 23 and a creatinine of 1.55. Lactic acid was significantly elevated at 9.7 with signs of pneumonia on chest x-ray for which she did receive vancomycin and Zosyn in the ER which will be continued on admission [facility] Medical History Acute on chronic respiratory failure with hypoxia and hypercapnia Afib Smoker On home oxygen therapy Protein calorie malnutrition Hyperglycemia Elevated troponin I level Leukocytosis History of non-ST elevation myocardial infarction (NSTEMI) (06/21/19) Hyperlipidemia Non-ischemic cardiomyopathy Essential (primary) hypertension Chronic respiratory failure with hypoxia DONNA (obstructive sleep apnea) Stage 4 very severe COPD by GOLD classification Home Medications ?Medication ?Instructions ?Recorded ?Last Taken ?Type acetaminophen 500 mg tablet 1,000 mg PO DAILY PRN PRN Pain Or 10/04/18 06/13/19 History Fever lisinopril 10 mg tablet 10 mg PO DAILY BP 10/04/18 06/14/19 History Disability Placard #1 ea 03/15/23 Unknown Rx apixaban 5 mg tablet (Eliquis) 5 mg PO BID #60 tabs 03/15/23 Unknown Rx pantoprazole 40 mg tablet,delayed 40 mg PO DAILY GERD 07/24/23 Unknown History release buspirone 5 mg tablet 5 mg PO TID #0 tabs 08/10/23 Unknown Rx metoprolol tartrate 50 mg tablet 100 mg (2 x 50 mg) PO BID #0 tabs 08/10/23 Unknown Rx sertraline 50 mg tablet 50 mg PO DAILY #0 tabs 08/10/23 Unknown Rx diltiazem HCl 180 mg 180 mg PO QDAY 12/04/23 Unknown History capsule,extended release 24 hr, controlled loratadine 10 mg tablet 10 mg PO QDAY 12/04/23 Unknown History trazodone 50 mg tablet 50 mg PO QHS 12/04/23 Unknown History albuterol sulfate 2.5 mg/3 mL 2.5 mg (3 mL) inhalation Q6H #180 06/17/24 Unknown Rx (0.083 %) solution for nebulization mL albuterol sulfate 90 mcg/actuation 2 inh PO Q4H PRN shortness of 06/17/24 Unknown Rx aerosol inhaler breath or wheezing #8.5 grams tiotropium bromide 1.25 2 puff inhalation DAILY #4 grams 06/17/24 Unknown Rx mcg/actuation mist for inhalation (Spiriva Respimat) budesonide-formoterol HFA 160 2 puff inhalation BID #10.2 grams 11/11/24 Unknown Rx mcg-4.5 mcg/actuation aerosol inhaler (Symbicort) Allergy/AdvReac Type Severity Reaction Status Date / Time atorvastatin (From Lipitor) Allergy Unknown Unknown Verified 12/19/24 22:39 codeine Allergy Rash Verified 12/19/24 22:39 ibuprofen Allergy Rash Verified 12/19/24 22:39 Family History Father Lung cancer Mother Breast cancer Parkinsons disease Surgical History H/O tubal ligation Social History household members: significant other housing: house Smoking Status: Former smoker quit date: 07/24/23 alcohol intake: never substance use type: does not use ROS Review of Systems ROS Unobtainable: due to endotracheal tube Vital Signs Vital Signs Vital Signs: 12/19/24 22:24 12/19/24 22:24 12/19/24 22:25 Temperature 0 F L Temperature Source Temporal Pulse Rate 0 L Pulse Rate [3] 108 H Respiratory Rate 100 H 0 L Respiratory Pattern Blood Pressure 0/0 L Blood Pressure [3] 111/32 L Blood Pressure Mean Blood Pressure Source Blood Pressure Position Blood Pressure Location Pulse Ox Oxygen Delivery Method Ambu-Bag Mechanical Ventilator Oxygen Flow Rate (L/min) 100 100 Fraction of Inspired Oxygen (FIO2) 12/19/24 22:28 12/19/24 22:28 12/19/24 22:28 Temperature 96.3 F L Temperature Source Core Pulse Rate 108 H 109 H Pulse Rate [3] Respiratory Rate 20 H Respiratory Pattern Blood Pressure 111/32 L Blood Pressure [3] Blood Pressure Mean 58 Blood Pressure Source Blood Pressure Position Blood Pressure Location Pulse Ox 96 Oxygen Delivery Method Mechanical Ventilator Mechanical Ventilator Oxygen Flow Rate (L/min) 100 Fraction of Inspired Oxygen (FIO2) 12/19/24 22:30 12/19/24 22:35 12/19/24 22:35 Temperature Temperature Source Pulse Rate 107 H 93 92 Pulse Rate [3] Respiratory Rate 17 16 13 Respiratory Pattern Normal Blood Pressure 61/49 L 79/60 L Blood Pressure [3] Blood Pressure Mean 54 67 Blood Pressure Source Blood Pressure Position Blood Pressure Location Pulse Ox 69 100 Oxygen Delivery Method Oxygen Flow Rate (L/min) Fraction of Inspired Oxygen (FIO2) 100 12/19/24 22:41 12/19/24 22:45 12/19/24 22:45 Temperature 97.0 F L Temperature Source Core Pulse Rate 84 90 85 Pulse Rate [3] Respiratory Rate 21 H 16 16 Respiratory Pattern Blood Pressure 57/34 L 56/32 L 54/24 L Blood Pressure [3] Blood Pressure Mean 43 40 32 Blood Pressure Source Monitor Blood Pressure Position Supine Blood Pressure Location Left Arm Pulse Ox 100 100 Oxygen Delivery Method Oxygen Flow Rate (L/min) Fraction of Inspired Oxygen (FIO2) 12/19/24 22:46 12/19/24 22:50 12/19/24 22:55 Temperature Temperature Source Pulse Rate 87 88 Pulse Rate [3] Respiratory Rate 16 0 L Respiratory Pattern Blood Pressure 63/50 L 66/46 L 67/46 L Blood Pressure [3] Blood Pressure Mean 57 54 55 Blood Pressure Source Blood Pressure Position Blood Pressure Location Pulse Ox 100 Oxygen Delivery Method Oxygen Flow Rate (L/min) Fraction of Inspired Oxygen (FIO2) 05/29/25 22:56 12/19/24 22:58 12/19/24 23:00 Temperature Temperature Source Pulse Rate 89 Pulse Rate [3] Respiratory Rate 16 Respiratory Pattern Blood Pressure 56/39 L 55/32 L 51/25 L Blood Pressure [3] Blood Pressure Mean 46 41 33 Blood Pressure Source Blood Pressure Position Blood Pressure Location Pulse Ox 100 Oxygen Delivery Method Oxygen Flow Rate (L/min) Fraction of Inspired Oxygen (FIO2) 12/19/24 23:03 12/19/24 23:05 12/19/24 23:07 Temperature Temperature Source Pulse Rate 91 91 90 Pulse Rate [3] Respiratory Rate 16 17 16 Respiratory Pattern Blood Pressure 44/28 L 55/37 L 57/33 L Blood Pressure [3] Blood Pressure Mean 35 42 41 Blood Pressure Source Blood Pressure Position Blood Pressure Location Pulse Ox 100 Oxygen Delivery Method Oxygen Flow Rate (L/min) Fraction of Inspired Oxygen (FIO2) 12/19/24 23:08 12/19/24 23:10 12/19/24 23:13 Temperature 97.0 F L 96.6 F L Temperature Source Core Core Pulse Rate 91 89 100 Pulse Rate [3] Respiratory Rate 16 16 16 Respiratory Pattern Blood Pressure 55/37 L 47/29 L 64/40 L Blood Pressure [3] Blood Pressure Mean 43 37 48 Blood Pressure Source Monitor Monitor Blood Pressure Position Supine Blood Pressure Location Left Arm Pulse Ox 100 100 Oxygen Delivery Method Oxygen Flow Rate (L/min) Fraction of Inspired Oxygen (FIO2) 12/19/24 23:15 12/19/24 23:16 12/19/24 23:18 Temperature 96.6 F L Temperature Source Core Pulse Rate 92 93 91 Pulse Rate [3] Respiratory Rate 16 14 16 Respiratory Pattern Blood Pressure 64/40 L 51/38 L Blood Pressure [3] Blood Pressure Mean 49 42 Blood Pressure Source Monitor Blood Pressure Position Supine Blood Pressure Location Left Arm Pulse Ox 10 Oxygen Delivery Method Oxygen Flow Rate (L/min) Fraction of Inspired Oxygen (FIO2) 12/19/24 23:20 12/19/24 23:24 12/19/24 23:25 Temperature 96.2 F L Temperature Source Core Pulse Rate 94 92 97 Pulse Rate [3] Respiratory Rate 16 16 16 Respiratory Pattern Blood Pressure 51/36 L 69/44 L 72/41 L Blood Pressure [3] Blood Pressure Mean 41 52 52 Blood Pressure Source Monitor Blood Pressure Position Blood Pressure Location Pulse Ox 100 100 Oxygen Delivery Method Oxygen Flow Rate (L/min) Fraction of Inspired Oxygen (FIO2) 12/19/24 23:29 12/19/24 23:30 12/19/24 23:35 Temperature Temperature Source Pulse Rate 99 102 H Pulse Rate [3] Respiratory Rate 16 16 Respiratory Pattern Blood Pressure 69/44 L 77/52 L Blood Pressure [3] Blood Pressure Mean 54 59 Blood Pressure Source Blood Pressure Position Blood Pressure Location Pulse Ox Oxygen Delivery Method Oxygen Flow Rate (L/min) Fraction of Inspired Oxygen (FIO2) 50 12/19/24 23:40 12/19/24 23:40 12/19/24 23:45 Temperature 96.2 F L Temperature Source Core Pulse Rate 100 107 H Pulse Rate [3] Respiratory Rate 16 16 Respiratory Pattern Blood Pressure 72/57 L 72/57 L 79/45 L Blood Pressure [3] Blood Pressure Mean 62 63 57 Blood Pressure Source Monitor Blood Pressure Position Supine Blood Pressure Location Left Arm Pulse Ox 100 Oxygen Delivery Method Oxygen Flow Rate (L/min) Fraction of Inspired Oxygen (FIO2) 12/19/24 23:50 12/19/24 23:52 12/19/24 23:55 Temperature 96.3 F L Temperature Source Core Pulse Rate 114 H 100 111 H Pulse Rate [3] Respiratory Rate 17 16 14 Respiratory Pattern Blood Pressure 87/69 L 94/57 L 64/25 L Blood Pressure [3] Blood Pressure Mean 77 69 38 Blood Pressure Source Blood Pressure Position Blood Pressure Location Pulse Ox 100 Oxygen Delivery Method Room Air Oxygen Flow Rate (L/min) Fraction of Inspired Oxygen (FIO2) 12/20/24 00:00 12/20/24 00:10 12/20/24 00:14 Temperature 96.2 F L Temperature Source Core Pulse Rate 108 H Pulse Rate [3] Respiratory Rate 14 Respiratory Pattern Blood Pressure 85/50 L 88/58 L Blood Pressure [3] Blood Pressure Mean 61 69 Blood Pressure Source Blood Pressure Position Blood Pressure Location Pulse Ox 100 Oxygen Delivery Method Oxygen Flow Rate (L/min) Fraction of Inspired Oxygen (FIO2) 45 12/20/24 00:15 12/20/24 00:20 12/20/24 00:25 Temperature 96.2 F L 96.2 F L 96.2 F L Temperature Source Core Core Core Pulse Rate 114 H 115 H 114 H Pulse Rate [3] Respiratory Rate 16 16 16 Respiratory Pattern Blood Pressure 94/57 L 82/34 L 89/49 L Blood Pressure [3] Blood Pressure Mean 68 49 62 Blood Pressure Source Blood Pressure Position Blood Pressure Location Pulse Ox 93 Oxygen Delivery Method Oxygen Flow Rate (L/min) Fraction of Inspired Oxygen (FIO2) 12/20/24 00:30 12/20/24 00:35 12/20/24 00:40 Temperature 96.3 F L 96.2 F L Temperature Source Core Core Pulse Rate 106 H 116 H Pulse Rate [3] Respiratory Rate 26 H 16 Respiratory Pattern Blood Pressure 85/60 L 92/44 L 81/49 L Blood Pressure [3] Blood Pressure Mean 68 59 59 Blood Pressure Source Blood Pressure Position Blood Pressure Location Pulse Ox 95 Oxygen Delivery Method Oxygen Flow Rate (L/min) Fraction of Inspired Oxygen (FIO2) 12/20/24 00:45 12/20/24 00:50 12/20/24 00:55 Temperature 96.3 F L 96.3 F L 96.4 F L Temperature Source Core Core Core Pulse Rate 126 H 155 H 154 H Pulse Rate [3] Respiratory Rate 21 H 15 16 Respiratory Pattern Blood Pressure 78/39 L 78/60 L 72/44 L Blood Pressure [3] Blood Pressure Mean 49 67 54 Blood Pressure Source Blood Pressure Position Blood Pressure Location Pulse Ox Oxygen Delivery Method Oxygen Flow Rate (L/min) Fraction of Inspired Oxygen (FIO2) 12/20/24 00:59 12/20/24 01:00 12/20/24 01:30 Temperature 96.4 F L 96.4 F L 96.5 F L Temperature Source Core Core Core Pulse Rate 154 H 156 H 128 H Pulse Rate [3] Respiratory Rate 15 20 H 16 Respiratory Pattern Blood Pressure 63/27 L 73/30 L Blood Pressure [3] Blood Pressure Mean 34 44 Blood Pressure Source Blood Pressure Position Blood Pressure Location Pulse Ox 96 Oxygen Delivery Method Mechanical Ventilator Oxygen Flow Rate (L/min) Fraction of Inspired Oxygen (FIO2) 12/20/24 01:30 Temperature Temperature Source Pulse Rate 138 H Pulse Rate [3] Respiratory Rate 16 Respiratory Pattern Blood Pressure 72/52 L Blood Pressure [3] Blood Pressure Mean 58 Blood Pressure Source Blood Pressure Position Blood Pressure Location Pulse Ox 99 Oxygen Delivery Method Oxygen Flow Rate (L/min) Fraction of Inspired Oxygen (FIO2) Weight Weight: 154 lb 3 oz Body Mass Index (BMI) 24.8 Physical Exam Const General Appearance: intubated and patient mechanically ventilated HEENT normocephalic Eyes PERRL and conjunctivae normal Neck supple and no JVD Resp normal respiratory effort, no retractions and no use of accessory muscles Auscultation: Negative for crackles, rales, rhonchi or wheezes Cardio regular rate, regular rhythm, S1 normal heart sound, S2 normal heart sound and no murmurs GI soft to palpation and non-distended; Negative for hepatosplenomegaly Extremity no clubbing, cyanosis or edema Skin no rashes or lesions noted Neuro Sensorium / Orientation: sedated on vent Psych Appearance: intubated Results Lab / Micro Data 12/19/24 22:30 12/19/24 23:12 Labs: Laboratory Results - last 24 hr 12/19/24 22:30: WBC DEPARTMENT OF MATHEMATICS CHAIR, Corrected WBC 20.6 H, RBC 3.70 L, Hgb 6.6 L, Hct 26.7 L, MCV 72.2 L, MCH 17.8 L, MCHC 24.7 L, RDW Std Deviation 52.9 H, RDW Coeff of Sami 20.7 H, Plt Count 640 H, MPV 9.4, Neut % (Auto) Not Reportable, Absolute Neuts (auto) 15.6 H, Absolute Lymphs (auto) 4.11, Total Counted 100, Neutrophils % (Manual) 64, Band Neutrophils % 12 H, Metamyelocytes % 1, Myelocytes % 3 H, Nucleated RBCs/100 WBC 9 H, Diff Path Review November, Platelet Estimate MOD INC, Anisocytosis 1+, PT 29.8 H, INR 2.8, APTT 38.4 H, Sodium 132 L, Potassium 8.4 H*, Chloride 94 L, Carbon Dioxide 14.8 L, Anion Gap 23 H, BUN 42 H, Creatinine 1.55 H, Estim Creat Clear Calc 33.42 L, Est GFR (MDRD) Non-Af 37 L, BUN/Creatinine Ratio 27.2 H, Glucose 190 H, Lactic Acid 9.7 H*, Calcium 9.3, Total Bilirubin 0.22, AST 69 H, ALT 35, Alkaline Phosphatase 98, [place] [address] H, Total Protein 6.1, Albumin 3.1 L, Globulin 3.0, Albumin/Globulin Ratio 1.0 12/19/24 23:12: Potassium 6.0 H*, Procalcitonin 0.30 H 12/20/24 01:07: Urine Color Straw, Urine Clarity Turbid, Urine pH 6.0, Ur Specific [place] 1.015, Urine Protein 500 H, Urine Glucose (UA) 100 H, Urine Ketones 5 H, Urine Occult Blood 250 H, Urine Nitrite Negative, Urine Bilirubin Negative, Urine Urobilinogen Normal, Ur Leukocyte Esterase 500 H 12/20/24 01:11: POC Glucose 121 H Micro: Microbiology 12/19/24 23:18 Mucosa - Nose SARS-CoV-2, Influenza & RSV (PCR) - Final ABG Data ABG results: ABG 12/19/24 22:55 Specimen Type ART Sample Site L Radial pH 7.27 L Bicarbonate Actual 13.0 L Total CO2 14 Base Excess -14 L O2 Saturation 100 H O2 % 100.0 ABG pCO2 28.6 L ABG pO2 209 H Arnoldo Test N/A Respiration Rate 16 O2 Delivery Device Adult Vent Vent Mode AC Tidal Volume 450.0 POC PEEP 5 Imaging Radiology Impression Brain CT 12/19/24 22:28 IMPRESSION: No intracranial hemorrhage, mass effect or CT evidence of large vascular territory acute appearing infarct. 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 Volume loss, atrophy. Reading Location: [facility] Chest X-Ray 12/19/24 23:05 IMPRESSION: Pulmonary findings and support devices as above. Reading Location: [place] [id number] KUB X-Ray 12/19/24 23:05 IMPRESSION: Orogastric tube in satisfactory position. Reading Location: [id number] Chest X-Ray 12/20/24 00:45 IMPRESSION: Right IJ line with tip projecting at the expected location of the superior cavoatrial junction. No radiographic contraindication for use identified. Endotracheal tube 3 cm above the narinder. Reading Location: [facility] Assessment & Plan Assessment/Plan (1) Septic shock: (2) Pneumonia: (3) Acute hypoxic respiratory failure: PLAN: Plan 1. Septic shock secondary to pneumonia and UTI in the setting of the stage IV COPD with metabolic acidosis on the ventilator/A-fib with RVR ? Will continue with Levophed and add pressors as indicated ? Consult clarifier operator ? Continue with the amiodarone drip per cardiology ? Plan for echo in the morning ? Continue with IV fluids ? She is anemic to 6.6, will transfuse 1 unit unclear what the cause of her anemia is ? Her proBNP was elevated likely due to the chest compressions ? Blood, sputum, urine cultures are all pending 2. Essential HTN/paroxysmal A-fib ? Will hold all of her home blood pressure medications given her shock ? Currently on amiodarone drip ? Will plan for echocardiogram, last 1 was over a year ago with 40 to 45% 3. GERD ? Stable ? Continue with PPI 4. Anxiety/depression ? Resume home meds when indicated DVT: Lovenox Charges/Coding Visit Charges Inpatient E&M: 13752 Init Hosp L3
[2024-12-20 01:57] LABS: Bacteria 3+ /hpf (None Seen); Red Blood Cells-Urine 10-25 SEEN /hpf (0-5); Squamous Epithelial Cells - UA 5-10 SEEN /hpf (5-10); Transitional Epithelial - Ur 5-10 SEEN /hpf (0-5); White Blood Cells 25-50 SEEN /hpf (0-5)
[2024-12-20 01:58] LABS: Amorphous Sediment 3+
[2024-12-20] MEDS: Amiodarone 150 MG in Dextrose 5%-Water (100mL Bag) 100 ML 600 MG IV BOLUS (02:06)
--- NOTE | 2024-12-20 02:08 | EKG12_ITS ---
Test Reason : TACHYCARDIA Blood Pressure : */* mmHG Vent. Rate : 155 BPM Atrial Rate : 155 BPM P-R Int : 156 ms QRS Dur : 104 ms QT Int : 224 ms P-R-T Axes : * 81 261 degrees QTcB Int : 359 ms Critical Test Result: High HR Sinus tachycardia ST & T wave abnormality, consider inferolateral ischemia Abnormal ECG Confirmed by Julien Broderick ([id number]), mapping editor ZUNILDA BLANCAS ([id number]) on 12/23/2024 10:44:53 AM Referred By: RAYNE Confirmed By: Julien Broderick
[2024-12-20 02:19] LABS: Troponin T High Sensitivity 75 ng/L (<=14)
[2024-12-20] MEDS: Amiodarone 360 MG in Dextrose 5% Viaflo Bag 192.8 ML 33.3 MG CONT INF (02:19)
[2024-12-20] MEDS: Vasopressin 20 UNITS in 0.9% Normal Saline (50mL Bag) 24 ML 3 UNITS CONT INF ×2 (02:35→09:17)
[2024-12-20] MEDS: 0.9% Normal Saline (1000mL) 1,000 ML 150 ML IV (02:46)
[2024-12-20 02:50] LABS: Reflex Lactate? Y
[2024-12-20 02:55] LABS: Troponin T High Sens 2 HR 57 ng/L (<=14)
--- NOTE | 2024-12-20 03:17 | ED.RN ---
This nurse talked to CELIA Banuelos. He stated pt does not talk to children and that he is the patients medial power of admitted attorneys. Stating the paperwork was filled out the last time she was here. This nurse was unable to find papers on file and asked SO to bring in copy when able. Updated on pts admission to ICU.
[2024-12-20] MEDS: Norepinephrine 8 MG in 0.9% Normal Saline (250mL Bag) 242 ML 75 MG CONT INF ×3 (03:58→09:15)
[2024-12-20] MEDS: 0.9% Saline Lock 10 ML Syringe IV ×2 (04:06→10:54)
--- NOTE | 2024-12-20 04:37 | NURSING ---
0437 12/20/24 Called pt's significant other, Vin, per request of primary RN, Margaret Wang RN. He and the patient have been together for over 20 years. Updated him that pt is in very critical condition, requiring a large amount of vasoactive medication to keep her blood pressure high enough to sustain life. Invited him in to see/be with the patient if he would like to, outside of normal visiting hours, due to the critical condition she is in. Asked him if the patient has any children, which she does, and encouraged it may be prudent to inform them of their mother's admission and critical situation. Also asked if he was under the impression that the patient would want to be given CPR should her heart stop and he confirmed that, yes, his understanding is that she would want CPR at this point though she had mentioned becoming a DNR on a couple of occasions. Vin said he would not be in to see her for a couple of hours and was appropriately asking questions and expressing concern for her well being.
[2024-12-20 04:43] LABS: Troponin T High Sens 4 HR 120 ng/L (<=14)
--- NOTE | 2024-12-20 04:53 | PCMCONS.TICU ---
HPI Consult Data Date of Consult: 12/20/24 HPI Narrative HPI Narrative: Ms. Sainz is a 64 year-old female with Stage IV COPD, Non-Ischemic cardiomyopathy (EF 45%), chronic hypoxemic and hypercapnic respiratory failure, chronic anemia, HTN, HLD, and Afib on eliquis who presents with acute hypoxemic respiratory failure after a cardiac arrest. EMS was initially called to her house due to respiratory distress, but she refused treatment. They returned a short while later, at which time she went into cardiac arrest with CPR initiated immediately and ROSC achieved - unknown duration; unknown rhythm. She was intubated in the field and brought to [place], where upon she was found to be in Afib RVR for which she underwent DCCV x 3 + initiation of amiodarone drip. Additionally, she was found to be in shock for which vasopressors, antibiotics, and fluids were initiated. Laboratory data was remarkable for H/H 01/16, K 8.4, Cr 1.55, lactate 9.7, and a UTI. Chest imaging revealed a possible mass in the RUL and airspace disease in the bilateral lower lobes. On my examination, she remains intubated but not needing sedation and on multiple vasopressors. She is starting to responed to commands. [facility] Medical History Acute on chronic respiratory failure with hypoxia and hypercapnia Afib Smoker On home oxygen therapy Protein calorie malnutrition Hyperglycemia Elevated troponin I level Leukocytosis History of non-ST elevation myocardial infarction (NSTEMI) (06/21/19) Hyperlipidemia Non-ischemic cardiomyopathy Essential (primary) hypertension Chronic respiratory failure with hypoxia DONNA (obstructive sleep apnea) Stage 4 very severe COPD by GOLD classification Home Medications ?Medication ?Instructions ?Recorded ?Last Taken ?Type acetaminophen 500 mg tablet 1,000 mg PO DAILY PRN PRN Pain Or 10/04/18 06/13/19 History Fever lisinopril 10 mg tablet 10 mg PO DAILY BP 10/04/18 06/14/19 History Disability Placard #1 ea 03/15/23 Unknown Rx apixaban 5 mg tablet (Eliquis) 5 mg PO BID #60 tabs 03/15/23 Unknown Rx pantoprazole 40 mg tablet,delayed 40 mg PO DAILY GERD 07/24/23 Unknown History release buspirone 5 mg tablet 5 mg PO TID #0 tabs 08/10/23 Unknown Rx metoprolol tartrate 50 mg tablet 100 mg (2 x 50 mg) PO BID #0 tabs 08/10/23 Unknown Rx sertraline 50 mg tablet 50 mg PO DAILY #0 tabs 08/10/23 Unknown Rx diltiazem HCl 180 mg 180 mg PO QDAY 12/04/23 Unknown History capsule,extended release 24 hr, controlled loratadine 10 mg tablet 10 mg PO QDAY 12/04/23 Unknown History trazodone 50 mg tablet 50 mg PO QHS 12/04/23 Unknown History albuterol sulfate 2.5 mg/3 mL 2.5 mg (3 mL) inhalation Q6H #180 06/17/24 Unknown Rx (0.083 %) solution for nebulization mL albuterol sulfate 90 mcg/actuation 2 inh PO Q4H PRN shortness of 06/17/24 Unknown Rx aerosol inhaler breath or wheezing #8.5 grams tiotropium bromide 1.25 2 puff inhalation DAILY #4 grams 06/17/24 Unknown Rx mcg/actuation mist for inhalation (Spiriva Respimat) budesonide-formoterol HFA 160 2 puff inhalation BID #10.2 grams 11/11/24 Unknown Rx mcg-4.5 mcg/actuation aerosol inhaler (Symbicort) Allergy/AdvReac Type Severity Reaction Status Date / Time atorvastatin (From Lipitor) Allergy Unknown Unknown Verified 12/19/24 22:39 codeine Allergy Rash Verified 12/19/24 22:39 ibuprofen Allergy Rash Verified 12/19/24 22:39 Family History Father Lung cancer Mother Breast cancer Parkinsons disease Surgical History H/O tubal ligation Social History household members: significant other housing: house Smoking Status: Former smoker quit date: 07/24/23 alcohol intake: never substance use type: does not use ROS ROS Narrative UNABLE TO OBTAIN BASED ON PATIENT BEING INTUBATED AND SEDATED Objective Data Objective Data Vital Signs: Vital Signs Last response Temperature 36.7 C 12/20/24 04:20 Temperature Source Core 12/20/24 04:20 Pulse Rate 153 H 12/20/24 04:20 Respiratory Rate 24 H 12/20/24 04:20 Respiratory Pattern Normal 12/20/24 04:05 Blood Pressure 71/24 L 12/20/24 04:20 Blood Pressure Mean 39 12/20/24 04:20 Blood Pressure Source Monitor 12/20/24 04:20 Blood Pressure Position Semi-Fowlers 12/20/24 04:20 Blood Pressure Location Left Arm 12/20/24 04:20 Pulse Ox 96 12/20/24 04:20 Oxygen Delivery Method Mechanical Ventilator 12/20/24 04:20 Oxygen Flow Rate (L/min) 45 12/20/24 03:00 Fraction of Inspired Oxygen (FIO2) 45 12/20/24 04:20 I&O: I&O Last 24 Hours 12/19/24 12/19/24 12/20/24 11:59 23:59 11:59 Intake Total 28.76 / 28.76 988 / 988 Balance 28.76 / 28.76 988 / 988 I&O: Total Stay 12/19/24 22:23 thru 12/20/24 03:17 Intake Total 1016.76 Balance 1016.76 Current Meds Ordered / Administered: Current meds ordered / Administered Generic Name Dose Route Start Last Admin Trade Name Freq PRN Reason Stop Dose Admin Chlorhexidine Gluconate 15 ml 12/20/24 10:00 Chlorhexidine 15 Ml PO BID [facility] Enoxaparin Sodium 40 mg 12/20/24 10:00 Enoxaparin 40 Mg/0.4 Ml Syringe SC DAILY [facility] Hydrocortisone Sodium Succinate 50 mg 12/20/24 06:00 Hydrocortisone Sod Succinate 100 Mg/2 Ml Vial IV Q6 [facility] Norepinephrine Bitartrate 8 mg 250 mls @ 9.375 mls/hr 12/19/24 23:05 12/19/24 23:40 / Sodium Chloride CONT INF 40 mcg/min .[id number] JOSE ANTONIO 75 mls/hr Titration Protocol 5 MCG/MIN Amiodarone HCl 360 mg/ 200 mls @ 33.333 mls/hr 12/20/24 01:30 12/20/24 02:19 Dextrose CONT INF 12/20/24 07:29 1 mg/min .Q6H JOSE ANTONIO 33.3 mls/hr Administration 1 MG/MIN Amiodarone HCl 360 mg/ 200 mls @ 16.667 mls/hr 12/20/24 08:00 Dextrose CONT INF 12/21/24 01:59 .Q12H JOSE ANTONIO 0.5 MG/MIN Vasopressin 20 units/ Sodium 25 mls @ 3 mls/hr 12/20/24 02:25 12/20/24 02:35 Chloride CONT INF 0.04 units/min .[id number] JOSE ANTONIO 3 mls/hr Administration 0.04 UNITS/MIN Sodium Chloride 1,000 mls @ 100 mls/hr 12/20/24 02:45 12/20/24 02:46 IV 150 mls/hr .Q10H JOSE ANTONIO Administration Sodium Chloride 500 mls @ 15 mls/hr 12/20/24 03:53 IV PRN PRN Blood Transfusion Sodium Chloride 250 mls @ 15 mls/hr 12/20/24 03:53 IV .[id number] PRN Saline Flush Sodium Chloride 250 mls @ 15 mls/hr 12/20/24 03:53 IV .[id number] PRN Additional IVPB Infusion Vancomycin IV-PHARMACY TO DOSE 500 mls @ 250 mls/hr 12/20/24 03:58 1 each/ Sodium Chloride IV X1 PRN Rx to Dose Protocol Piperacillin Sod/Tazobactam 50 mls @ 12.5 mls/hr 12/20/24 06:00 Sod 3.375 gm/ Sodium Chloride IV Q8 JOSE ANTONIO Dexmedetomidine HCl 400 mcg/ 100 mls @ 8.742 mls/hr 12/20/24 03:58 12/20/24 04:49 Sodium Chloride CONT INF Not Given .[id number] JOSE ANTONIO Protocol 0.5 MCG/KG/HR Pantoprazole Sodium 40 mg/ 100 mls @ 330 mls/hr 12/20/24 10:00 Sodium Chloride IV Q12 JOSE ANTONIO Fentanyl 100 mls @ 2.5 mls/hr 12/20/24 03:58 12/20/24 04:49 CONT INF Not Given UD JOSE ANTONIO Protocol 25 MCG/HR Phenylephrine HCl 10 mg/ 250 mls @ 15 mls/hr 12/20/24 04:45 Sodium Chloride CONT INF .[id number] JOSE ANTONIO Protocol 10 MCG/MIN Sodium Chloride 10 - 40 ml 12/20/24 03:53 12/20/24 04:06 0.9% Saline Lock 10 Ml Syringe IV 30 ml UD PRN Administration SALINE FLUSH Physical Exam Narrative GENERAL: INTUBATED AND NOT SEDATED HEENT: PERRLA; EOMI; anicteric NECK: soft, supple, no JOSE; no JVP; no TM CV: RRR; -m/r/g RESP: CTAB; no wheezes, crackles or rhonchi ABD: soft, NT, ND, ABS x 4 EXT: WWP; no C/C/E NEURO: DEFERRED Lab / Micro Data 12/19/24 22:30 12/19/24 23:12 Labs: Laboratory Results - last 24 hr 12/19/24 22:30: WBC PEDIGREE TRACER, Corrected WBC 20.6 H, RBC 3.70 L, Hgb 6.6 L, Hct 26.7 L, MCV 72.2 L, MCH 17.8 L, MCHC 24.7 L, RDW Std Deviation 52.9 H, RDW Coeff of Sami 20.7 H, Plt Count 640 H, MPV 9.4, Neut % (Auto) Not Reportable, Absolute Neuts (auto) 15.6 H, Absolute Lymphs (auto) 4.11, Total Counted 100, Neutrophils % (Manual) 64, Band Neutrophils % 12 H, Metamyelocytes % 1, Myelocytes % 3 H, Nucleated RBCs/100 WBC 9 H, Diff Path Review November, Platelet Estimate MOD INC, Anisocytosis 1+, PT 29.8 H, INR 2.8, APTT 38.4 H, Sodium 132 L, Potassium 8.4 H*, Chloride 94 L, Carbon Dioxide 14.8 L, Anion Gap 23 H, BUN 42 H, Creatinine 1.55 H, Estim Creat Clear Calc 33.42 L, Est GFR (MDRD) Non-Af 37 L, BUN/Creatinine Ratio 27.2 H, Glucose 190 H, Lactic Acid 9.7 H*, Calcium 9.3, Total Bilirubin 0.22, AST 69 H, ALT 35, Alkaline Phosphatase 98, [place] [address] H, Total Protein 6.1, Albumin 3.1 L, Globulin 3.0, Albumin/Globulin Ratio 1.0 12/19/24 23:12: Potassium 6.0 H*, Troponin T High Sens 75 H*, Procalcitonin 0.30 H 12/20/24 01:07: Urine Color Straw, Urine Clarity Turbid, Urine pH 6.0, Ur Specific [place] 1.015, Urine Protein 500 H, Urine Glucose (UA) 100 H, Urine Ketones 5 H, Urine Occult Blood 250 H, Urine Nitrite Negative, Urine Bilirubin Negative, Urine Urobilinogen Normal, Ur Leukocyte Esterase 500 H, Urine RBC 10-25 SEEN, Urine WBC 25-50 SEEN, Ur Squamous Epith Cells 5-10 SEEN, Ur Transition Epith Cell 5-10 SEEN, Amorphous Sediment 3+, Urine Bacteria 3+, Urine Mucus 0 SEEN 12/20/24 01:11: POC Glucose 121 H 12/20/24 01:45: Troponin T Hi Sens 2 Hr 57 H* 12/20/24 01:54: Blood Type A POSITIVE, Antibody Screen NEGATIVE, Crossmatch See Detail 12/20/24 03:15: Lactic Acid 7.0 H* 12/20/24 04:05: Troponin T Hi Sens 4Hr 120 H* Micro: Microbiology 12/19/24 23:18 Mucosa - Nose SARS-CoV-2, Influenza & RSV (PCR) - Final ABG Data ABG results: ABG 12/19/24 22:55 Specimen Type ART Sample Site L Radial pH 7.27 L Bicarbonate Actual 13.0 L Total CO2 14 Base Excess -14 L O2 Saturation 100 H O2 % 100.0 ABG pCO2 28.6 L ABG pO2 209 H Arnoldo Test N/A Respiration Rate 16 O2 Delivery Device Adult Vent Vent Mode AC Tidal Volume 450.0 POC PEEP 5 Imaging Radiology Impression Brain CT 12/19/24 22:28 IMPRESSION: No intracranial hemorrhage, mass effect or CT evidence of large vascular territory acute appearing infarct. 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 Volume loss, atrophy. Reading Location: [id number] Chest X-Ray 12/19/24 23:05 IMPRESSION: Pulmonary findings and support devices as above. Reading Location: [id number] K[facility] X-Ray 12/19/24 23:05 IMPRESSION: Orogastric tube in satisfactory position. Reading Location: [id number] Chest X-Ray 12/20/24 00:45 IMPRESSION: Right IJ line with tip projecting at the expected location of the superior cavoatrial junction. No radiographic contraindication for use identified. Endotracheal tube 3 cm above the narinder. Reading Location: [id number] Assessment and Plan . Assessment and plan: LINES R-IJ 12/20 DRIPS Levophed Vasopressin Phenylephrine Solumedrol 12/20 VENTILATOR AC/450/24/5/45% ANTIBIOTICS AND STEROIDS Vancomycin 12/20 Zosyn 12/20 ASSESSMENT 1. Acute on Chronic Hypoxemic Respiratory Failure 2. Cardiac Arrest 3. Shock 4. Atrial Fibrillation with RVR s/p DCCV x 3 5. Acute on Chronic Stage IV COPD Exacerbation 6. Acute on Chronic Anemia 7. Pneumonia 8. Urinary Tract Infection 9. Elevated Lactate 10. Hyperkalemia 11. Acute on Chronic Anemia 12. Non-ST Elevation Myocardial Infarction 13. Acute Kidney Injury 14. Possible Lung Mass 15. Non-Ischemic Cardiomyopathy (EF 45%) 17. Hypertension 18. Hyperlipidemia 19. Obstructive Sleep Apnea 20. Chronic Hypercapnic Respiratory Failure PLAN 1. Vent check made; RR increased to compensate for acidosis; duonebs added 2. Fluids + Vasopressors to maintain MAP 65 3. Broad Abx; cultures pending; MRSA ordered and pending; COVID/Flu/RSV ordered and pending 4. Continue amiodarone gtt; rhythm looks like PSVT vs. NSVT 5. Echo in AM; troponin is climbing but this is after CPR; no therapeutic anticoagulation for now given anemia; stop lovenox for same reason 6. Potassium trending down; repeat pending 7. Lactate trending down; repeat pending 8. Transfusing 1U PRBC: no obvious sources of bleeding; hold all anticoagulation 8. Cardiac arrest with unknown duration and unknown rhythm 9. Guarded prognosis; family deciding on code status SCDs/PPI Critical Care Time: 60 Minutes The entirety of this encounter was done via telemedicine with audio and visual. Consent was not obtained for a telemedicine encounter as patient is intubated and sedated. Porfirio Wei MD Pulmonary and Critical Care Medicine
[2024-12-20 05:06] LABS: Allen Test Positive; Base Excess -8 mmol/L (-2 to +2); Bicarbonate 19.9 mmol/L (22-26); Blood Gas Specimen Type ART; Mode AC; O2 Delivery Device ET Tube; PEEP 5; PO2 69 mmHG (75-100); RR 16; SITE L Radial; SO2 89 % (95-99); Total Carbon Dioxide 21 mmol/L; pCO2 48.9 mmHg (35-45); pH 7.22 (7.35-7.45)
[2024-12-20] MEDS: Piperacil/Tazobactam 3.375 GM in 0.9% Normal Saline (50mL MB+) 50 ML IV (05:12)
[2024-12-20] MEDS: Phenylephrine 10 MG in 0.9% Normal Saline (250mL Bag) 249 ML 15 MG CONT INF (05:12)
[2024-12-20 05:18] LABS: ALB/GLOB Ratio 1.1 RATIO (0.9-2.4); AST(SGOT) 306 U/L (<=31); Alanine Aminotransfer ALT/SGPT 161 U/L (<=34); Albumin, Serum 2.8 g/dL (3.4-4.8); Alkaline Phosphatase 108 U/L (35-104); Anion Gap 18 (5-15); BUN 43 mg/dL (4-19); BUN/Creat Ratio 27.3 RATIO (10-20); Calcium,Total 8.5 mg/dL (7.6-11.0); Chloride 100 mmol/L (98-108); Creatinine, Serum 1.58 mg/dL (0.70-1.20); EST Glomerular Filtration Rate 36 (>60); Estimated Creatinine Clearance 32.79 ml/min (50-250); Globulin 2.7 g/dL (2.2-4.2); Glucose 130 mg/dL (70-99); Magnesium 2.4 mg/dL (1.5-2.2); Potassium 5.5 mmol/L (3.3-5.1); Protein, Total 5.5 g/dL (5.9-8.4); Sodium Level 134 mmol/L (133-145); Total Bilirubin 0.29 mg/dL (0.00-1.30)
--- NOTE | 2024-12-20 05:55 | ECHOD_ITS ---
Reason For Study Reason For Study: ATRIAL FIBRILLATION/FLUTTER Procedure This was a 2D Doppler, Color Flow transthoracic echocardiogram. The study was technically difficult. Limited views were obtained. The study was technically limited. Exam performed portable in patient room. MMode/2D Measurements & Calculations LVIDd: 3.7 cm IVSd: 0.83 cm LVIDs: 2.7 cm LVPWd: 0.78 cm FS: 26.0 % Doppler Measurements & Calculations PA V2 max: 81.1 cm/sec TR max umair: 239.6 cm/sec TR max P.0 mmHg ECHO/Echo Complete Interpretation Summary Limited transthoracic echocardiogram Patient is in atrial fibrillation Overall appears mildly reduced LV systolic function RV dilatation moderately with mild RV systolic function Unable to comment on the valve due to limited study In comparison to previous echocardiogram in July/2023 similar EF around 45% Cardiac rhythm is atrial fibrillation Ordering Physician: Juan Collins Referring Physician: Gumaro Feliciano Performed By: Miranda Esquivel RDCS, RVT
[2024-12-20] MEDS: MethylPREDNISolone 125 MG/2 ML Vial 60 MG IV (05:56)
--- NOTE | 2024-12-20 06:13 | PCM.RX.CS ---
Consult Antibiotic Management Pharmacy has been consulted to manage selected antibiotic: Vancomycin Type of Intervention Type of Consult: New start Labs Labs: Sodium 134 mmol/L (133-145) 12/20/24 04:05 Potassium 5.5 mmol/L (3.3-5.1) H 12/20/24 04:05 Chloride 100 mmol/L (98-108) 12/20/24 04:05 Carbon Dioxide 16.0 mmol/L (21.0-32.0) L 12/20/24 04:05 Anion Gap 18 (5-15) H 12/20/24 04:05 BUN 43 mg/dL (4-19) H 12/20/24 04:05 Creatinine 1.58 mg/dL (0.70-1.20) H 12/20/24 04:05 Est GFR (MDRD) Non-Af 36 (>60) L 12/20/24 04:05 BUN/Creatinine Ratio 27.3 RATIO (10-20) H 12/20/24 04:05 Glucose 130 mg/dL (70-99) H 12/20/24 04:05 Microbiology Microbiology: Microbiology 12/19/24 23:18 Mucosa - Nose SARS-CoV-2, Influenza & RSV (PCR) - Final Dosing Weight Weight used for dosin.1 kg Estimated Creatinine Clearance Estimated Creatinine Clearance: 35.1 Goal Trough Goal Trough: 15-20 mcg/mL Pharmacy Plan for Drug Dosing Pharmacy Plan for Drug Dosing: Pharmacy Service will continue to monitor and adjust dosing as required. 1750MG GIVEN IN ER 12/20 @ 0055. START 1GM Q24H AND DRAW TROUGH PRIOR TO 3RD DOSE Follow-Up Labs Follow-Up Labs: Trough: Vancomycin Date/Time Labs Ordered Labs to be done on [date and time ordered]: 12/22 @ 0030
[2024-12-20 06:16] LABS: Absolute Lymphocyte Count 0.65 X10^3/uL (0.83-4.51); Absolute Neutrophil Count 37.2 X10^3/uL (2.0-7.7); Basophil# 0.08 X10^3/uL; Basophil% 0.2 % (0-1); Eosinophils% 0.2 % (0-5); Hematocrit 27.8 % (37-47); Hemoglobin 7.7 g/dL (12.0-15.0); Lymphocyte # 0.65 X10^3/ul (0.83-4.51); Lymphocyte % 1.6 % (19-41); Mean Corp Hgb Conc 27.7 g/dL (32-36); Mean Corpuscular Hgb 19.9 pg (27.0-32.0); Mean Corpuscular Volume 71.8 fL (81-99); Mean Platelet Vol. 9.5 fl (6.2-12.0); Monocyte# 1.19 X10^3/uL; Monocyte% 2.9 % (0-10); NRBC Flagged by Analyzer 6.8 % (0-5); Neutrophil # 37.18 X10^3/uL (2.7-7.7); Neutrophil % 92.2 % (47-70); POSITIVE COUNT YES; POSITIVE DIFFERENTIAL YES; POSITIVE MORPHOLOGY YES; Platelet Count 595 K/mm3 (150-450); Red Blood Count 3.87 M/mm3 (4.2-5.4)
[2024-12-20 06:27] LABS: Differential Indicated SCAN CRITERIA MET; White Blood Count 40.4 K/mm3 (4.4-11.0)
[2024-12-20 07:27] LABS: Lactic Acid 4.2 mmol/L (0.0-2.0)
[2024-12-20] MEDS: Phenylephrine 10 MG in 0.9% Normal Saline (250mL Bag) 249 ML 255 MG CONT INF (07:35)
[2024-12-20] MEDS: fentaNYL drip 100 ML 2.5 MCG CONT INF (08:23)
[2024-12-20] MEDS: Phenylephrine 10 MG in 0.9% Normal Saline (250mL Bag) 249 ML 270 MG CONT INF ×2 (08:39→09:38)
--- NOTE | 2024-12-20 08:42 | CASEMGMT ---
Social Work SW received call from first assistant manager this morning, as pt's children's numbers are not listed in the chart, significant other at the bedside does not have them. SW reviewed chart, located number for [facility] [place]: [phone]. SW gave the number to ICU staff and updated the demographics. NICOLE Caal
[2024-12-20] MEDS: Amiodarone 360 MG in Dextrose 5% Viaflo Bag 192.8 ML 16.7 MG CONT INF (08:46)
[2024-12-20 08:47] LABS: Anisocytosis 1+; Pathologist Review May foll
[2024-12-20 09:06] LABS: Allen Test Positive; Base Excess -12 mmol/L (-2 to +2); Bicarbonate 17.1 mmol/L (22-26); Blood Gas Specimen Type ART; Mode AC; O2 Delivery Device Adult Vent; PEEP 5; PO2 22 mmHG (75-100); RR 24; SITE L Brach; SO2 23 % (95-99); Total Carbon Dioxide 19 mmol/L; pH 7.12 (7.35-7.45)
[2024-12-20] MEDS: Chlorhexidine 15 ML PO (09:06)
--- NOTE | 2024-12-20 09:14 | NURSING ---
Daughter Bettye and son Caden notified of continued worsening of patient condition, noting that pulse is now thready and weak. informed them we had started fentanyl drip to make sure she is comfortable. Asked if they had made decision regarding code status. Both agreed that they do not want to withdrawal care at this time, but do not want us to do CPR if her heart stops. Primary RN Yessi notified.
[2024-12-20] MEDS: Sodium Bicarbonate 8.4% 50 ML Syringe 100 MEQ IV (09:25)
[2024-12-20] MEDS: Sodium Bicarbonate 150 MEQ in Dextrose 5%-Water (1000mL Bag) 1,000 ML 100 MEQ IV (09:33)
[2024-12-20] MEDS: Epinephrine (1 mg/ml) 1 MG in 0.9% Normal Saline (250mL Bag) 250 ML 100.5 MG CONT INF (09:45)
[2024-12-20] MEDS: Doxycycline 100 MG in 0.9% Normal Saline (250mL Bag) 250 ML 250 MG IV (10:12)
[2024-12-20] MEDS: Epinephrine (1 mg/ml) 1 MG in 0.9% Normal Saline (250mL Bag) 250 ML 803.6 MG CONT INF (10:24)
[2024-12-20 10:34] LABS: Reflex Lactate? Y
--- NOTE | 2024-12-20 10:34 | NURSING ---
sonCarlitos and daughter, Bettye in patient room, discussed critical condition and POC. Voiced wanting to make patient comfort care. This RN called Dr. Mantilla, who spoke with sonCarlitos to confirm code status.
--- NOTE | 2024-12-20 10:39 | PN.CC_ITS ---
Objective Data Objective Data Vital Signs: Vital Signs Last response 3 Temperature 38.1 C H 12/20/24 09:00 Temperature Source Core 12/20/24 09:00 Pulse Rate 110 H 12/20/24 10:20 Pulse Strength Weak (1+) 12/20/24 08:36 Respiratory Rate 27 H 12/20/24 10:00 Respiratory Effort Mechanically Ventilated 12/20/24 04:00 Respiratory Depth Normal 12/20/24 04:00 Respiratory Pattern Tachypnea 12/20/24 09:09 Blood Pressure 37/22 L 12/20/24 10:25 Blood Pressure Mean 27 12/20/24 10:25 Blood Pressure Source Monitor 12/20/24 07:00 Blood Pressure Position Supine 12/20/24 05:00 Blood Pressure Location Left Arm 12/20/24 07:30 Pulse Ox 94 12/20/24 10:00 Oxygen Delivery Method Mechanical Ventilator 12/20/24 10:00 Oxygen Flow Rate (L/min) 45 12/20/24 03:00 Fraction of Inspired Oxygen (FIO2) 50 12/20/24 10:00 I&O: I&O Last 24 Hours 3 12/19/24 12/19/24 12/20/24 11:59 23:59 11:59 Intake Total 28.76 / 28.76 4392.48 / 4392.48 Output Total 10 Balance 28.76 / 28.76 4382.48 / 4382.48 I&O: Total Stay 3 12/19/24 22:23 thru 12/20/24 10:25 Intake Total 4421.24 Output Total 10 Balance 4411.24 Current Meds Ordered / Administered: Current meds ordered / Administered 3 Generic Name Dose Route Start Last Admin Trade Name Freq PRN Reason Stop Dose Admin Albuterol/Ipratropium 3 ml 12/20/24 05:15 Ipratropium/Albuterol Sulfate 3 Ml Ampul.Neb INHALATION Q4H.RT JOSE ANTONIO Chlorhexidine Gluconate 15 ml 12/20/24 10:00 12/20/24 09:06 Chlorhexidine 15 Ml PO 15 ml BID JOSE ANTONIO Administration Norepinephrine Bitartrate 8 mg 250 mls @ 9.375 mls/hr 12/19/24 23:05 12/20/24 09:15 / Sodium Chloride CONT INF 40 mcg/min .[id number] JOSE ANTONIO 75 mls/hr Administration Protocol 5 MCG/MIN Amiodarone HCl 360 mg/ 200 mls @ 16.667 mls/hr 12/20/24 08:00 12/20/24 08:46 Dextrose CONT INF 12/21/24 01:59 0.5 mg/min .Q12H JOSE ANTONIO 16.7 mls/hr Administration 0.5 MG/MIN Vasopressin 20 units/ Sodium 25 mls @ 3 mls/hr 12/20/24 02:25 12/20/24 09:17 Chloride CONT INF 0.04 units/min .Q8H20M JOSE ANTONIO 3 mls/hr Administration 0.04 UNITS/MIN Sodium Chloride 500 mls @ 15 mls/hr 12/20/24 03:53 IV PRN PRN Blood Transfusion Sodium Chloride 250 mls @ 15 mls/hr 12/20/24 03:53 IV .[id number] PRN Saline Flush Sodium Chloride 250 mls @ 15 mls/hr 12/20/24 03:53 IV .[id number] PRN Additional IVPB Infusion Vancomycin IV-PHARMACY TO DOSE 500 mls @ 250 mls/hr 12/20/24 03:58 1 each/ Sodium Chloride IV X1 PRN Rx to Dose Protocol Dexmedetomidine HCl 400 mcg/ 100 mls @ 8.742 mls/hr 12/20/24 03:58 12/20/24 04:49 Sodium Chloride CONT INF Not Given .[id number] JOSE ANTONIO Protocol 0.5 MCG/KG/HR Pantoprazole Sodium 40 mg/ 100 mls @ 330 mls/hr 12/20/24 10:00 Sodium Chloride IV Q12 JOSE ANTONIO Fentanyl 100 mls @ 2.5 mls/hr 12/20/24 03:58 12/20/24 09:23 CONT INF 50 mcg/hr UD JOSE ANTONIO 5 mls/hr Titration Protocol 25 MCG/HR Phenylephrine HCl 10 mg/ 250 mls @ 15 mls/hr 12/20/24 04:45 12/20/24 09:38 Sodium Chloride CONT INF 180 mcg/min .[id number] JOSE ANTONIO 270 mls/hr Administration Protocol 10 MCG/MIN Vancomycin HCl 1,000 mg in 200 mls @ 200 mls/hr 12/21/24 01:00 Vancomycin IV Q24H JOSE ANTONIO Sodium Bicarbonate 150 meq/ 1,150 mls @ 100 mls/hr 12/20/24 09:45 05/30/25 09:33 Dextrose IV 100 mls/hr .[id number] JOSE ANTONIO Administration Epinephrine HCl 1 mg/ Sodium 251 mls @ 100.45 mls/hr 12/20/24 09:30 12/20/24 10:25 Chloride CONT INF 0.9 mcg/kg/min .Q2H30M JOSE ANTONIO 904.1 mls/hr Titration Protocol 0.1 MCG/KG/MIN Meropenem 1 gm/ Sodium 120 mls @ 33 mls/hr 12/20/24 10:00 Chloride IV Q12 JOSE ANTONOI Doxycycline Hyclate 100 mg/ 250 mls @ 250 mls/hr 12/20/24 10:00 12/20/24 10:12 Sodium Chloride IV 250 mls/hr Q12 JOSE ANTONIO Administration Methylprednisolone 60 mg 12/20/24 06:00 12/20/24 05:56 Methylprednisolone 125 Mg/2 Ml Vial IV 60 mg Q6 JOSE ANTONIO Administration Sodium Chloride 10 - 40 ml 12/20/24 03:53 12/20/24 04:06 0.9% Saline Lock 10 Ml Syringe IV 30 ml UD PRN Administration SALINE FLUSH Vancomycin Protocol 1 lab 12/21/24 23:30 Vancomycin Trough/Random Due MC 12/22/24 01:30 DAILY JOSE ANTONIO Lab / Micro Data 12/20/24 06:10 12/20/24 04:05 Labs: Laboratory Results - last 24 hr 12/19/24 22:30: WBC JOINTER MACHINE, Corrected WBC 20.6 H, RBC 3.70 L, Hgb 6.6 L, Hct 26.7 L, MCV 72.2 L, MCH 17.8 L, MCHC 24.7 L, RDW Std Deviation 52.9 H, RDW Coeff of Sami 20.7 H, Plt Count 640 H, MPV 9.4, Neut % (Auto) Not Reportable, Absolute Neuts (auto) 15.6 H, Absolute Lymphs (auto) 4.11, Total Counted 100, Neutrophils % (Manual) 64, Band Neutrophils % 12 H, Metamyelocytes % 1, Myelocytes % 3 H, N ucleated RBCs/100 WBC 9 H, Diff Path Review November, Platelet Estimate MOD INC, Anisocytosis 1+, PT 29.8 H, INR 2.8, APTT 38.4 H, Sodium 132 L, Potassium 8.4 H* , Chloride 94 L, Carbon Dioxide 14.8 L, Anion Gap 23 H, BUN 42 H, Creatinine 1.55 H, Estim Creat Clear Calc 33.42 L, Est GFR (MDRD) Non-Af 37 L, B UN/Creatinine Ratio 27.2 H, Glucose 190 H, Lactic Acid 9.7 H*, Calcium 9.3, Total Bilirubin 0.22, AST 69 H, ALT 35, Alkaline Phosphatase 98, [place] [address] H, Total Protein 6.1, Albumin 3.1 L, Globulin 3.0, Albumin/Globulin Ratio 1.0 12/19/24 23:12: Potassium 6.0 H*, Troponin T High Sens 75 H*, Procalcitonin 0.30 H 12/20/24 01:07: Urine Color Straw, Urine Clarity Turbid, Urine pH 6.0, Ur Specific [place] 1.015, Urine Protein 500 H, Urine Glucose (UA) 100 H, Urine Ketones 5 H, Urine Occult Blood 250 H, Urine Nitrite Negative, Urine Bilirubin Negative, Urine Urobilinogen Normal, Ur Leukocyte Esterase 500 H, Urine RBC 10- 25 SEEN, Urine WBC 25-50 SEEN, Ur Squamous Epith Cells 5-10 SEEN, Ur Transition Epith Cell 5-10 SEEN, Amorphous Sediment 3+, Urine Bacteria 3+, Urine Mucus 0 SEEN 12/20/24 01:11: POC Glucose 121 H 12/20/24 01:45: Troponin T Hi Sens 2 Hr 57 H* 12/20/24 01:54: Blood Type A POSITIVE, Antibody Screen NEGATIVE, Crossmatch See Detail 12/20/24 03:15: Lactic Acid 7.0 H* 12/20/24 04:05: Sodium 134, Potassium 5.5 H, Chloride 100, Carbon Dioxide 16.0 L , Anion Gap 18 H, BUN 43 H, Creatinine 1.58 H, Estim Creat Clear Calc 32.79 L, E st GFR (MDRD) Non-Af 36 L, BUN/Creatinine Ratio 27.3 H, Glucose 130 H, Calcium 8.5, Magnesium 2.4 H, Total Bilirubin 0.29, AST 306 H, ALT 161 H, Alkaline Phosphatase 108 H, Troponin T Hi Sens 4Hr 120 H*, Total Protein 5.5 L, Albumin 2.8 L, Globulin 2.7, Albumin/Globulin Ratio 1.1 12/20/24 06:10: WBC 40.4 H*, RBC 3.87 L, Hgb 7.7 L, Hct 27.8 L, MCV 71.8 L, MCH 19.9 L, MCHC 27.7 L D, RDW Std Deviation 58.0 H, RDW Coeff of Sami 23.0 H, Plt Count 595 H, MPV 9.5, Immature Gran % (Auto) 2.900 H, Neut % (Auto) 92.2 H, L ymph % (Auto) 1.6 L, Otero % (Auto) 2.9, Eos % (Auto) 0.2, Baso % (Auto) 0.2, A bsolute Neuts (auto) 37.2 H, Absolute Lymphs (auto) 0.65 L, Nucleated RBC % 6.8 H, Differential Comment COMMENT, Diff Path Review May foll, Anisocytosis 1+ 12/20/24 06:23: Lactic Acid 4.2 H* Micro: Microbiology 12/20/24 06:40 Stool Stool Occult Blood (CAROLYNE) - Final Occult Blood Positive 12/20/24 06:23 Nasal Secretion MRSA (PCR) - Final 12/20/24 05:15 Mucosa - Nasopharyngeal SARS-CoV-2, Influenza & RSV (PCR) - Final 12/19/24 23:18 Mucosa - Nose SARS-CoV-2, Influenza & RSV (PCR) - Final ABG Data ABG results: ABG 12/19/24 12/20/24 12/20/24 22:55 05:02 09:01 Specimen Type ART ART ART Sample Site L Radial L Radial L Brach pH 7.27 L 7.22 L 7.12 L* Bicarbonate Actual 13.0 L 19.9 L 17.1 L Total CO2 14 21 19 Base Excess -14 L -8 L -12 L O2 Saturation 100 H 89 L 23 L O2 % 100.0 45.0 50.0 ABG pCO2 28.6 L 48.9 H 52.0 H ABG pO2 209 H 69 L 22 L* Arnoldo Test N/A Positive Positive Respiration Rate 16 16 24 O2 Delivery Device Adult Vent ET Tube Adult Vent Vent Mode AC AC AC Tidal Volume 450.0 450.0 450.0 POC PEEP 5 5 5 Crit Call To/Read Back Yes Blood Gas Notified Whom [facility] Blood Gas Notified Time 09:02:48 Imaging Radiology Impression Brain CT 12/19/24 22:28 IMPRESSION: No intracranial hemorrhage, mass effect or CT evidence of large vascular territory acute appearing infarct. 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 Volume loss, atrophy. Reading Location: [id number] Chest X-Ray 12/19/24 23:05 IMPRESSION: Pulmonary findings and support devices as above. Reading Location: [id number] KUB X-Ray 12/19/24 23:05 IMPRESSION: Orogastric tube in satisfactory position. Reading Location: [id number] Chest X-Ray 12/20/24 00:45 IMPRESSION: Right IJ line with tip projecting at the expected location of the superior cavoatrial junction. No radiographic contraindication for use identified. Endotracheal tube 3 cm above the narinder. Reading Location: [facility] Assessment and Plan . Assessment and plan: CRITICAL CARE BRIEF UPDATE NOTE Family arrived at bedside this AM. Contacted by RN and spoke with son Caden via phone; he expressed that family would like to pursue withdrawal of care now. Therefore will transition to comfort care measures and pursue palliative extubation now. Hadley Mantilla MD
[2024-12-20] MEDS: Lorazepam 2 MG/ML WCH Syringe IV (10:54)
[2024-12-20] MEDS: Morphine 4 MG/ML Syringe IV (10:54)
--- NOTE | 2024-12-20 11:18 | NURSING ---
time of 1116, verified with second RN, Kelly Bishop. Dr. Montelongo notified.
--- NOTE | 2024-12-20 11:53 | PCM.DEATH ---
Preliminary Cause of Preliminary Cause of Preliminary Cause of : acute cardiopulmonary arrest due to septic shock and acute hypoxic respiratory failure due to pneumonia Date of Admission: 12/20/24 Date of : 12/20/24 Principle Diagnosis Problem List: Active and Suspected Problems (Updated 12/20/24 @ 08:[address] Cody Au, DO) Septic shock (Acute) Atrial fibrillation with RVR (Acute) Hyperkalemia (Acute) Pneumonia (Acute) Acute hypoxic respiratory failure (Acute) Cardiomyopathy, nonischemic (Acute) Cardiopulmonary arrest with successful resuscitation (Acute) Hospital Course Patient is a 64-year-old female with past medical history as outlined was admitted through the ED on 12/20/2024 after being brought in for cardiac arrest. The EMS had gone to her house earlier in the evening of admission on account of respiratory distress but patient refused to come into the hospital. However subsequently EMS went back to the home after that she called in with respiratory distress and she was found to be in cardiac arrest. CPR was immediately started and she had a central line placed and was also intubated in the ED. She went into A-fib with RVR and was also found to be anemic with hemoglobin of 6.6. ABG done showed severe metabolic acidosis with pH of 7.27 and bicarb of 13. She had an anion gap of 23 and creatinine was 1.55. Lactic acid was significantly elevated at 9.7. Chest x-ray showed evidence of pneumonia. She was admitted to be managed for acute hypoxic respiratory failure due to pneumonia. Patient's blood pressure dropped and was not responding to fluids so she was started on vasopressors. She was eventually placed on 3 vasopressors. However blood pressure was still not responding. Family was informed about the dire prognosis. Family switch CODE STATUS to DNR CCA. They subsequently switched CODE STATUS to DNR CCA and she was terminally extubated. Patient on 12/20/2024 at 11:16 AM. Cause of is acute cardiopulmonary arrest due to septic shock and acute hypoxic respiratory failure in the setting of acute anemia and pneumonia as well as UTI. Visit Charges Inpatient E&M: [id number] Disch Hosp
[2025-01-01 16:06] LABS: Pathologist Review Reviewed
== END 2024-12-20 13:08 | DRG 871 ==
LOC: ED 12-20 01:10 → ICU 12-20 02:14
PROVIDERS: Internal Medicine Critical Care Medicine; Admitting Provider Family Medicine; Emergency Provider Emergency Medicine; PCP Nurse Practitioner Family; Visit Provider Student in an Organized Health Care Education/Training Program
DX: A41.9 Sepsis, unspecified organism (principal); J18.9 Pneumonia, unspecified organism; J96.22 Acute and chronic respiratory failure with hypercapnia; R65.21 Severe sepsis with septic shock; J96.01 Acute respiratory failure with hypoxia; I42.8 Other cardiomyopathies; E46 Unspecified protein-calorie malnutrition; J44.1 Chronic obstructive pulmonary disease with (acute) exacerbation; J44.0 Chronic obstructive pulmonary disease with (acute) lower respiratory infection; Z66 Do not resuscitate; I11.0 Hypertensive heart disease with heart failure; I48.91 Unspecified atrial fibrillation; D50.0 Iron deficiency anemia secondary to blood loss (chronic); E78.5 Hyperlipidemia, unspecified; E87.5 Hyperkalemia; I95.9 Hypotension, unspecified; I25.2 Old myocardial infarction; G47.33 Obstructive sleep apnea (adult) (pediatric); Z99.81 Dependence on supplemental oxygen; Z79.51 Long term (current) use of inhaled steroids; Z87.891 Personal history of nicotine dependence; Z79.01 Long term (current) use of anticoagulants; J44.89 Other specified chronic obstructive pulmonary disease; Z68.23 Body mass index [BMI] 23.0-23.9, adult
CPT/HCPCS: 31500; 31720; 36600; 51702; 70450; 71045; 74018; 80053; 81001; 82274; 82803; 82962; 83605; 83735; 83880; 84132; 84145; 84484; 85025; 85610; 85730; 86710; 86850; 86900; 86901; 87040; 87070; 87077; 87086; 87088; 87186; 87205; 87631; 87641; 92950; 92960; 93005; 93306; 94002; 94003; 97802; 99285; P9016; A4216; J0612